=== PATIENT | male | born 1955 | race Caucasian/White ===

== ENCOUNTER 2016-08-04 13:01 | Observation (INO) ==
[2016-08-04 13:23] LABS: Bilirubin,Urine Small (Negative); Blood,Urine Negative (Negative); Clarity,Urine Cloudy (Clear); Color,Urine Dark Yellow (Yellow); Glucose,Urine (UA) Normal (Normal); Ketones,Urine Trace mg/dL (Negative); Leukocyte Esterase,Urine Moderate (Negative); Nitrite,Urine Positive (Negative); PH,Urine 6.5 pH Units (5.0-8.0); Protein,Urine 30 mg/dL (Neg-Trace); Urobilinogen,Urine Normal (Normal)
[2016-08-04 13:24] LABS: Bacteria,Urine None Seen per hpf (None-Few); Hyaline Casts,Urine Moderate per lpf (None-Few); RBC,Urine 0-3 per hpf (0-3); Squamous Epithelial Cell,Urine Many per lpf (None-Few); WBC,Urine 15-30 per hpf (0-3)
[2016-08-04 13:43] LABS: Basophils % 0.3 %; Eosinophils # 0.1 K/mcL (0.0-0.6); Eosinophils % 0.8 %; Hematocrit 46.4 % (37.5-50.1); Hemoglobin 15.1 g/dL (12.9-16.9); Immature Granulocytes % 0.7 % (0-4); Lymphocytes % 27.6 %; Mean Corpuscular HGB Conc 32.5 g/dL (31.6-35.5); Mean Corpuscular Hemoglobin 29.5 pg (28.0-33.3); Mean Corpuscular Volume 90.8 fL (83.0-100.0); Mean Platelet Volume 10.7 fL (9.4-12.4); Monocytes # 0.8 K/mcL (0.0-1.3); Monocytes % 7.8 %; Neutrophils # 6.8 K/mcL (1.6-8.9); Platelet Count 202 K/mcL (140-400); Red Blood Count 5.11 M/mcL (4.19-5.50); Segmented Neutrophils % 62.8 %
[2016-08-04 14:02] LABS: Alanine Aminotransferase 16 Units/L (0-55); Albumin 3.6 g/dL (3.5-5.0); Albumin/Globulin Ratio 0.9 (1.1-2.2); Alkaline Phosphatase 47 Units/L (38-126); Amylase 37 Units/L (25-125); Aspartate Amino Transferase 19 Units/L (5-34); BUN/Creatinine Ratio 15 (6-26); Bilirubin,Direct 0.2 mg/dL (0.0-0.5); Bilirubin,Indirect 0.3 mg/dL (0.0-1.2); Bilirubin,Total 0.5 mg/dL (0.2-1.2); Blood Urea Nitrogen 15 mg/dL (8-26); Calcium 10.1 mg/dL (8.6-10.8); Carbon Dioxide 21 mEq/L (19-29); Chloride 99 mEq/L (98-109); Glucose 116 mg/dL (70-99); Lipase 26 Units/L (8-78); Osmolality,Calculated 282 (280-300); Potassium 4.3 mEq/L (3.5-4.5); Sodium 135 mEq/L (136-145); Total Protein 7.6 g/dL (6.0-8.3); eGFR For African Americans > 60 (> 60); eGFR For Non-African Americans > 60 (> 60)
[2016-08-04] MEDS ORDERED: Ondansetron 4 MG/2 ML VIAL IV ONE (14:16)
[2016-08-04] MEDS ORDERED: Ketorolac 30 MG/ML VIAL IV ONE (14:16)
[2016-08-04] MEDS ORDERED: 0.9 % Sodium Chloride 1,000 ML IVC ONE (14:18)
--- NOTE | 2016-08-04 14:42 | Emergency Department Note ---
Disposition Clinical Impression: Pyelonephritis Abdominal pain Qualifiers: Abdominal location: upper abdomen, unspecified Qualified Code(s): R10.10 - Upper abdominal pain, unspecified UTI (urinary tract infection) Qualifiers: Urinary tract infection type: site unspecified Hematuria presence: without hematuria Qualified Code(s): N39.0 - Urinary tract infection, site not specified Disposition: Admitted As Inpatient Condition: Good Time of Disposition: 15:35 Abdominal Pain HPI - General Chief Complaint: ED Abdominal Pain Stated Complaint: Multiple complaints Time Seen by Provider: 08/04/16 14:01 Source: patient Mode of arrival: ambulatory Limitations: no limitations Nursing Notes Reviewed: Yes Vital Signs Reviewed: Yes - History of Present Illness HPI Narrative: Patient presents emergency room for evaluation of bilateral back pain and feeling generally ill. He is called today with positive culture results from an ER visit 3 days ago. The antibiotic he was on was resistant to the urinary bacteria. Patient has not been doing any better since going home. Denies chest pain shortness of breath fevers or chills but has been uncomfortable and unable to sleep over the last 24-48 hours Onset (ago): day(s) (5 days) Consistency: constant, Worsening Location: L flank, R flank Pain Severity: moderate Pain Scale: 10 Quality: aching Radiation: bilateral flank Migration to: no migration Improves with: nothing Worsens with: movement Associated symptoms: Reports: denies other symptoms Treatments prior to arrival: none - Related Data Home Medications Medication Instructions Recorded Confirmed Albuterol Sulfate [Albuterol 2 puff IH Q4H PRN 08/04/16 08/04/16 Inhaler] Baclofen [Lioresal] 10 mg PO BID 08/04/16 08/04/16 Docusate Sodium [Stool Softener] 100 mg PO BID PRN 08/04/16 08/04/16 FLUoxetine HCl [Prozac] 20 mg PO DAILY 08/04/16 08/04/16 Fenofibrate Nanocrystallized 48 mg PO DAILY 08/04/16 08/04/16 [Tricor] Furosemide [Lasix] 80 mg PO TID 08/04/16 08/04/16 Gabapentin [Neurontin] 600 mg PO TID PRN 08/04/16 08/04/16 LORazepam [Ativan] 0.5 mg PO DAILY PRN 08/04/16 08/04/16 Levothyroxine [Synthroid] 250 mcg PO QAM 08/04/16 08/04/16 Meloxicam [Mobic] 15 mg PO DAILY 08/04/16 08/04/16 Metformin HCl [Glucophage] 1,000 mg PO BID 08/04/16 08/04/16 Nitroglycerin [Nitrostat] 0.4 mg SL Q5M PRN 08/04/16 08/04/16 Omeprazole [PriLOSEC] 20 mg PO BIDAC 08/04/16 08/04/16 Oxycodone HCl/Acetaminophen 1 each PO Q6H PRN 08/04/16 08/04/16 [Percocet 7.5-325 mg Tablet] Pentoxifylline [TRENtal] 400 mg PO BID 08/04/16 08/04/16 Potassium Chloride [K-Tab ER] 20 meq PO DAILY 08/04/16 08/04/16 Pravastatin Sodium [Pravachol] 40 mg PO HS 08/04/16 08/04/16 Spironolactone [Aldactone] 50 mg PO BID 08/04/16 08/04/16 Warfarin [Coumadin] 10 mg PO 1800 08/04/16 08/04/16 Previous Rx's Medication Instructions Recorded Cephalexin [Keflex] 500 mg PO BID #14 capsule 08/07/16 Acetaminophen [Tylenol] 650 mg PO Q6HR #40 tablet 08/14/16 Ondansetron ODT [Zofran ODT] 4 mg SL Q6HR #10 tab.rapdis 08/14/16 Allergies Allergy/AdvReac Type Severity Reaction Status Date / Time Amoxicillin [From Augmentin] Allergy Palpitation Verified 08/04/16 13:05 s clavulanic acid Allergy Palpitation Verified 08/04/16 13:05 [From Augmentin] s meperidine [From Demerol] Allergy Palpitation Verified 08/04/16 13:05 s sulfamethoxazole Allergy Rash Verified 08/04/16 13:05 [From Bactrim] trimethoprim [From Bactrim] Allergy Rash Verified 08/04/16 13:05 All systems ED: reviewed and negative except as stated. Cardiovascular: Denies: chest pain, palpitations, dyspnea on exertion Respiratory: Denies: cough, dyspnea, wheezes Gastrointestinal: Reports: abdominal pain. Denies: nausea, vomiting, diarrhea Genitourinary: Reports: urgency, dysuria Musculoskeletal: Reports: back pain. Denies: neck pain Abdominal Pain PMH - Past Medical History Medical history: Reports: asthma, atrial fibrillation, CHF, COPD, diabetes, myocardial infarction, peripheral artery disease, thyroid disease, other Male Surgical History: Reports: orthopedic, other Psychiatric history: Reports: no psych history - Social History Smoking status: Current every day smoker Alcohol use: Reports: rarely Drug use: Reports: none Physical Exam - General General appearance: alert, in no apparent distress - Respiratory Respiratory exam: Present: normal lung sounds bilaterally, accessory muscle use. Absent: respiratory distress, wheezes, stridor - Cardiovascular Cardiovascular exam: Present: regular rate, normal rhythm, normal heart sounds - Abdominal Exam Abdominal exam: Present: soft, tenderness (Bilateral lower abdominal tenderness radiating around in the bilateral CVA region. No peritoneal like symptoms), normal bowel sounds. Absent: Non-Tender, distention, guarding, rebound, rigidity, Patel's sign, Rovsing's sign, tenderness at McBurney's Point - Extremities Exam Extremities exam: Present: normal inspection, full ROM - Back Exam Back exam: Present: normal inspection, full ROM, CVA tenderness (R), CVA tenderness (L). Absent: tenderness - Neurological Exam Neurological exam: Present: alert, oriented X3, CN II-XII intact - Psychiatric Psychiatric exam: Present: normal affect, normal mood - Skin Skin exam: Present: warm, dry, intact, normal color Course Course Narrative: Patient seen and examined the time of arrival. See history of present illness. 61-year-old male presents to the emergency room after being contacted about a positive urine culture. He is on an antibiotic that was not treating the urinary tract infection that he had. Patient also is describing progression of his generalized malaise and weakness. He has multiple vague complaints including feeling like short of breath feeling weak difficulty with ambulation stomach discomfort and bilateral back pain. All these been present for several days. They just appear to be weak at this time. Patient has not been able to eat or drink as much over the last 24 hours. He has only taken 3 doses of his antibiotic. Again the cultures reviewed by myself urine cultures positive for Escherichia coli resistant to ciprofloxacin and he was discharged home on. Vital signs are stable on presentation except for mild tachypnea. Pulse ox was normal. Physical exam shows a morbidly obese gentleman with significant truncal obesity. Lungs are clear but he does have accessory muscle use and diminished aeration secondary to body habitus. Patient has failed outpatient treatment of urinary tract infection. He was on ciprofloxacin at home it shows resistance. Patient is concerning for progression of pyelonephritis at this time. CT the abdomen ordered to address any underlying pathology including renal calculi. IV antibiotics including Rocephin given at this time. Pain medication nausea medication fluids ordered. 1 L given at this point. Intermittent aliquots were given after that secondary to history of CHF and dependent edema in his lower extremities. Patient is concerning for decompensation secondary to poor medical condition including significant truncal obesity. Patient stable at this time in about a regimen ordered pain control at this time patient will be admitted to the hospital for definitive management - Reevaluation(s) Reevaluation #1: CT of the abdomen is negative for acute pathology. No signs of acute renal calculi or obstruction. Patient has concern for pyelonephritis based on symptoms history presentation and failed outpatient management of urinary tract infection. Fluids provided. Pain medication first dose of IV Rocephin. Patient will be admitted for evaluation and definitive management. Patient is unable to tolerate by mouth food or fluids secondary to feeling ill and is unable to go home in this condition. Hospitals page at this time for admission process to be completed. Otherwise evaluation laboratory workup are unremarkable at this point. Time: 15:49 Reevaluation #2: Patient discussed with the hospitalist Dr. mooney . Reviewed the patient's presentation symptoms medical history. Discussed the second evaluation for urinary tract infection and generalized weakness at this point. Admission process to be completed for UTI possible pyelonephritis and weakness symptoms. No other recommendations from them at this time. Patient stable. We will continue to monitor in emergency room at admission process is completed. Patient family formula called with this plan. Time: 17:00 Vital Signs Temperature 97.4 F L 08/04/16 13:03 Pulse Rate 89 08/04/16 13:03 Respiratory Rate 22 08/04/16 13:03 Blood Pressure 138/94 08/04/16 13:03 O2 Sat by Pulse Oximetry 99 08/04/16 13:03 Temperature 98.0 F 08/07/16 10:53 Pulse Rate 72 08/07/16 10:53 Respiratory Rate 17 08/07/16 10:53 Blood Pressure 120/78 08/07/16 10:53 O2 Sat by Pulse Oximetry 96 08/07/16 10:53 Oxygen Delivery Oxygen Delivery Room Air Abdominal Pain - MDM Narrative Medical decision making narrative: Abdominal pain, urinary tract infection, pyelonephritis - Medical Records Medical records reviewed: Yes I reviewed the patient's medical records. - Lab Data Lab results reviewed: Yes I reviewed the patient's lab results. Result diagrams: 08/07/16 05:11 08/07/16 05:11 Lab Results 08/04/16 08/04/16 08/04/16 Range/Units 13:15 13:20 13:20 WBC 10.8 (4.3-11.1) K/mcL RBC 5.11 (4.19-5.50) M/mcL Hgb 15.1 (12.9-16.9) g/dL Hct 46.4 (37.5-50.1) % MCV 90.8 (83.0-100.0) fL MCH 29.5 (28.0-33.3) pg MCHC 32.5 (31.6-35.5) g/dL RDW 15.0 H (11.5-14.5) % Plt Count 202 (140-400) K/mcL MPV 10.7 (9.4-12.4) fL Immature Gran % 0.7 (0-4) % Seg Neutrophils % 62.8 % Lymphocytes % 27.6 % Monocytes % 7.8 % Eosinophils % 0.8 % Basophils % 0.3 % Neutrophils # 6.8 (1.6-8.9) K/mcL Lymphocytes # 3.0 (0.6-4.6) K/mcL Monocytes # 0.8 (0.0-1.3) K/mcL Eosinophils # 0.1 (0.0-0.6) K/mcL Basophils # 0.0 (0.0-0.2) K/mcL Sodium 135 L (136-145) mEq/L Potassium 4.3 (3.5-4.5) mEq/L Chloride 99 (98-109) mEq/L Carbon Dioxide 21 (19-29) mEq/L BUN 15 (8-26) mg/dL Creatinine 1.00 (0.72-1.25) mg/dL Est GFR ( Amer) > 60 (> 60) Est GFR (Non-Af Amer) > 60 (> 60) BUN/Creatinine Ratio 15 (6-26) Glucose 116 H (70-99) mg/dL Est Mean Plasma Glucose mg/dl Hemoglobin A1c ( - 5.6) % Calculated Osmolality 282 (280-300) Calcium 10.1 (8.6-10.8) mg/dL Total Bilirubin 0.5 (0.2-1.2) mg/dL Direct Bilirubin 0.2 (0.0-0.5) mg/dL Indirect Bilirubin 0.3 (0.0-1.2) mg/dL AST 19 (5-34) Units/L ALT 16 (0-55) Units/L Alkaline Phosphatase 47 (38-126) Units/L Troponin I (0-0.03) ng/mL Serum Total Protein 7.6 (6.0-8.3) g/dL Albumin 3.6 (3.5-5.0) g/dL Globulin 4.0 H (2.4-3.5) g/dL Albumin/Globulin Ratio 0.9 L (1.1-2.2) Amylase 37 (25-125) Units/L Lipase 26 (8-78) Units/L Urine Color Dark Yellow (Yellow) Urine Clarity Cloudy A (Clear) Urine pH 6.5 (5.0-8.0) pH Units Ur Specific [place] 1.030 H (1.010-1.025) Urine Protein 30 H (Neg-Trace) mg/dL Urine Glucose (UA) Normal (Normal) mg/dL Urine Ketones Trace H (Negative) mg/dL Urine Blood Negative (Negative) Urine Nitrite Positive A (Negative) Urine Bilirubin Small H (Negative) Urine Urobilinogen Normal (Normal) mg/dL Ur Leukocyte Esterase Moderate H (Negative) Urine Microscopic RBC 0-3 (0-3) per hpf Urine Microscopic WBC 15-30 H (0-3) per hpf Ur Squamous Epith Cells Many H (None-Few) per lpf Urine Bacteria None Seen (None-Few) per hpf Hyaline Casts Moderate H (None-Few) per lpf Ur Culture Indicated? YES A (NO) 08/04/16 08/04/16 Range/Units 13:20 13:33 WBC (4.3-11.1) K/mcL RBC (4.19-5.50) M/mcL Hgb (12.9-16.9) g/dL Hct (37.5-50.1) % MCV (83.0-100.0) fL MCH (28.0-33.3) pg MCHC (31.6-35.5) g/dL RDW (11.5-14.5) % Plt Count (140-400) K/mcL MPV (9.4-12.4) fL Immature Gran % (0-4) % Seg Neutrophils % % Lymphocytes % % Monocytes % % Eosinophils % % Basophils % % Neutrophils # (1.6-8.9) K/mcL Lymphocytes # (0.6-4.6) K/mcL Monocytes # (0.0-1.3) K/mcL Eosinophils # (0.0-0.6) K/mcL Basophils # (0.0-0.2) K/mcL Sodium (136-145) mEq/L Potassium (3.5-4.5) mEq/L Chloride (98-109) mEq/L Carbon Dioxide (19-29) mEq/L BUN (8-26) mg/dL Creatinine (0.72-1.25) mg/dL Est GFR ( Amer) (> 60) Est GFR (Non-Af Amer) (> 60) BUN/Creatinine Ratio (6-26) Glucose (70-99) mg/dL Est Mean Plasma Glucose 117 mg/dl Hemoglobin A1c 5.7 H ( - 5.6) % Calculated Osmolality (280-300) Calcium (8.6-10.8) mg/dL Total Bilirubin (0.2-1.2) mg/dL Direct Bilirubin (0.0-0.5) mg/dL Indirect Bilirubin (0.0-1.2) mg/dL AST (5-34) Units/L ALT (0-55) Units/L Alkaline Phosphatase (38-126) Units/L Troponin I 0.01 (0-0.03) ng/mL Serum Total Protein (6.0-8.3) g/dL Albumin (3.5-5.0) g/dL Globulin (2.4-3.5) g/dL Albumin/Globulin Ratio (1.1-2.2) Amylase (25-125) Units/L Lipase (8-78) Units/L Urine Color (Yellow) Urine Clarity (Clear) Urine pH (5.0-8.0) pH Units Ur Specific [place] (1.010-1.025) Urine Protein (Neg-Trace) mg/dL Urine Glucose (UA) (Normal) mg/dL Urine Ketones (Negative) mg/dL Urine Blood (Negative) Urine Nitrite (Negative) Urine Bilirubin (Negative) Urine Urobilinogen (Normal) mg/dL Ur Leukocyte Esterase (Negative) Urine Microscopic RBC (0-3) per hpf Urine Microscopic WBC (0-3) per hpf Ur Squamous Epith Cells (None-Few) per lpf Urine Bacteria (None-Few) per hpf Hyaline Casts (None-Few) per lpf Ur Culture Indicated? (NO) - Radiology Data Radiology results reviewed: Yes I reviewed the patient's radiology results. CT of the abdomen is negative for acute intra-abdominal pathology no signs of renal calculi or infectious presentation - EKG Data EKG attestation: Yes I reviewed and interpreted this EKG. EKG shows normal: sinus rhythm, axis, intervals, QRS complexes, ST-T waves Rate: normal Rhythm: NSR [place]/QRS: normal Interpretation: normal EKG Attestation Statement - Attestation Attestation: I examined this patient and my medical decision-making was reviewed with the AUDIT REVIEWER/PA/Advanced Practice Nurse/Resident Physician. I agree with the documented findings, disposition and treatment plan as described except to the extent set forth below. Patient emergency department with a chief complaint of not feeling well. The patient was seen a couple days ago for the same. He has a positive urine culture that was resistant to Cipro that he was prescribed. Feels warm but has not checked his temperature. On exam he is obese. He is in no distress. His abdomen soft. Nontoxic and afebrile. Plan. As bilateral. CT pending at this time. Starting Rocephin which was sensitive to. I was not involved in the care of this patient. I was not working at this facility on the date of his emergency care Tony Mckenzie MD
[2016-08-04] MEDS ORDERED: *HR* HYDROmorphone (PF) 1 MG/ML SYRINGE IVP ONE ×2 (15:33→17:03)
[2016-08-04] MEDS ORDERED: Naloxone 0.4 MG/ML INJ IVP PRN (19:05)
--- NOTE | 2016-08-04 19:14 | Internal Med History&Physical ---
<Dana Bonilla M - Last Filed: 08/04/16 20:23> Date of Encounter: 08/04/16 Time of Encounter: 19:12 Assessment and Plan (1) Pyelonephritis Current visit: Yes Status: Acute Patient diagnosed with UTI on 08/02 and sent home with Cipro. Today's UA consistent with UTI. Urine culture from 08/02 grew e.coli resistent to cipro and patient now with flank pain and CVA tenderness consistent with pyelonephritis. CT of abdomen and pelvis showed no acute abnormality. Ceftriaxone IVPB daily 1L IV fluids given (2) UTI (urinary tract infection) Current visit: Yes Status: Acute Patient diagnosed with UTI on 08/02 and sent home with Cipro. Today's UA consistent with UTI. Urine culture from 08/02 grew e.coli resistent to cipro and patient now with flank pain and CVA tenderness consistent with pyelonephritis. Ceftriaxone IVPB daily 1L IV fluids given Qualifiers: Urinary tract infection type: site unspecified Hematuria presence: without hematuria Qualified Code(s): N39.0 - Urinary tract infection, site not specified (3) CHF (congestive heart failure) Current visit: Yes Status: Chronic Echo 07/24/16 showed LVEF of 60% and mild diastolic dysfunction. Patient appears euvolemic on exam. CXR showed no acute cardiopulmonary disease. Continue home dose of lasix. Qualifiers: Congestive heart failure type: diastolic Congestive heart failure chronicity: chronic Qualified Code(s): I50.32 - Chronic diastolic (congestive ) heart failure (4) Afib Current visit: Yes Status: Acute Today's EKG demonstrated NSR. Regular rate and rhythm on exam. Continue home dose of Coumadin. Will check PT/INR. Qualifiers: Atrial fibrillation type: paroxysmal Qualified Code(s): I48.0 - Paroxysmal atrial fibrillation (5) COPD (chronic obstructive pulmonary disease) Current visit: Yes Status: Acute Patient requires 2-3L of oxygen by NC at home. Continue home medications. Titrate oxygen to maintain O2 saturation > 90%. Qualifiers: COPD type: unspecified COPD Qualified Code(s): J44.9 - Chronic obstructive pulmonary disease, unspecified (6) DVT prophylaxis Current visit: Yes Status: Acute Ambulate with assistance anti-embolic stockings Patient on coumadin, additional pharmacologic prophylaxis is not indicated. Internal Medicine - H&P: HPI Chief complaint: flank pain, UTI Admitted From: Emergency Dept Plans for Post Hospital Care: Home History of present illness: Mr. Davila is a 61 year old male with hypertension, hyperlipidemia, type 2 diabetes, COPD, CHF, atrial fibrillation on Coumadin, presents to the emergency department today with dysuria, flank pain, body aches, nausea and abdominal pain. He presented to the ED a few days ago and was diagnosed with a UTI, sent home on cipro, but symptoms continued and worsened. His culture returned bacterial resistant to cipro and he was called and instructed to return to the ED. He reports decreased appetite, weakness and shortness of breath as well. Evaluation in the emergency department included an EKG was showed normal sinus rhythm, troponin which was negative at 0.01. White blood cell count was normal at 10.8. UA was significant for UTI. On exam, patient is morbidly obese, alert and oriented in no acute distress. Lungs are clear bilaterally to auscultation, heart has regular rate and rhythm. Patient does have bilateral CVA tenderness. Past Med Surg Social Fam HX - Past Medical History Medical history: asthma, atrial fibrillation, CHF, COPD, diabetes, myocardial infarction, peripheral artery disease, thyroid disease, other Psychiatric history: no psych history - Past Surgical History Surgical History: angioplasty/stent, orthopedic, other - Social History Smoking Status: Current every day smoker (90 pack year history) Packs per day: 1/2 Smokeless Tobacco Status: No Alcohol use: rarely Drug use: none - Family History Mother Living Status: Age at : 70 Cause of : liver disease Father Living Status: Age at : 75 Cause of : pancreatic cancer Hx Family Cancer: Yes Internal Medicine - H&P: Meds Albuterol Sulfate [Albuterol Inhaler] 2 puff IH Q4H PRN 08/04/16 [History] Baclofen [Lioresal] 10 mg PO BID 08/04/16 [History] Docusate Sodium [Stool Softener] 100 mg PO BID PRN 08/04/16 [History] FLUoxetine HCl [PROzac] 20 mg PO DAILY 08/04/16 [History] Fenofibrate Nanocrystallized [Tricor] 48 mg PO DAILY 08/04/16 [History] Furosemide [Lasix] 80 mg PO TID 08/04/16 [History] Gabapentin [Neurontin] 600 mg PO TID PRN 08/04/16 [History] LORazepam [Ativan] 0.5 mg PO DAILY PRN 08/04/16 [History] Levothyroxine [Synthroid] 250 mcg PO QAM 08/04/16 [History] Meloxicam [Mobic] 15 mg PO DAILY 08/04/16 [History] Metformin HCl [Glucophage] 1,000 mg PO BID 08/04/16 [History] Nitroglycerin [Nitrostat] 0.4 mg SL Q5M PRN 08/04/16 [History] Omeprazole [PriLOSEC] 20 mg PO BIDAC 08/04/16 [History] Oxycodone HCl/Acetaminophen [Percocet 7.5-325 mg Tablet] 1 each PO Q6H PRN 08/04 [History] Pentoxifylline [TRENtal] 400 mg PO BID 08/04/16 [History] Potassium Chloride [K-Tab ER] 20 meq PO DAILY 08/04/16 [History] Pravastatin Sodium [Pravachol] 40 mg PO HS 08/04/16 [History] Spironolactone [Aldactone] 50 mg PO BID 08/04/16 [History] Warfarin [Coumadin] 10 mg PO 1800 08/04/16 [History] Allergies Amoxicillin [From Augmentin] Allergy (Verified 08/04/16 13:05) Palpitations clavulanic acid [From Augmentin] Allergy (Verified 08/04/16 13:05) Palpitations meperidine [From Demerol] Allergy (Verified 08/04/16 13:05) Palpitations sulfamethoxazole [From Bactrim] Allergy (Verified 08/04/16 13:05) Rash trimethoprim [From Bactrim] Allergy (Verified 08/04/16 13:05) Rash All Systems PM: A 10-system review of systems was performed and is negative for pertinent findings except as documented above in the HPI. - Constitutional Constitutional: chills, malaise, no fever(s), no night sweats - EENT Eyes: no change in vision, no discharge, no pain, no photophobia Ears: no ear discharge, no ear pain, no tinnitus Nose, mouth and throat: no dysphagia, no nasal discharge, no neck pain, no sore throat - Cardiovascular Cardiovascular ROS IM: no chest pain, no diaphoresis, no dyspnea, no lightheadedness, no palpitations, no syncope - Respiratory Respiratory: cough (chronic dry), dyspnea, no wheezing, no excessive phlegm production - Gastrointestinal Gastrointestinal: abdominal pain, nausea, no diarrhea, no hematemesis, no hematochezia, no melena, no vomiting - Genitourinary Genitourinary ROS male: dysuria, flank pain - Musculoskeletal Musculoskeletal ROS IM: no numbness, no tingling - Integumentary Integumentary IM: no rash, no unusual bruising - Neurological Neurological ROS: no confusion, no convulsions, no focal weakness, no numbness, no tingling, no tremor(s) - Hematologic/Lymphatic Hematologic/Lymphatic: no easy bruising - Constitutional Vitals: Temp Pulse Resp BP Pulse Ox 97.7 F 78 16 135/96 94 08/04/16 18:43 08/04/16 18:43 08/04/16 18:43 08/04/16 18:43 08/04/16 18:43 General appearance: Present: A&O X 3, morbidly obese, pleasant, no acute distress - Head Head exam: Present: atraumatic, normocephalic - Eye Eye exam: Present: PERRL, conjuntiva pink, sclera anicteric Pupils: Present: PERRL - Neck Neck exam general surgery: Present: supple, trachea midline. Absent: lymphadenopathy - Respiratory Respiratory exam: Present: CTAB. Absent: accessory muscle use, rales, rhonchi, wheezes - Cardiovascular Cardiovascular exam: Present: RRR, +S1, +S2. Absent: diastolic murmur, gallop, rubs, systolic murmur - GI/Abdominal GI/Abdominal exam: Present: normal bowel sounds, soft, tenderness (mild, diffuse ), no peritoneal signs. Absent: distended - Extremities Exam Extremities exam: Present: pedal edema (BLE edema), warm, radial pulses palpable and symetrical. Absent: calf tenderness, cyanotic - Back Exam Back exam: Present: CVA tenderness (L), CVA tenderness (R) - Neurological Exam Neurological exam: Present: CN II-XII intact, oriented X3, no focal deficits. Absent: facial droop, speech deficit - Skin Skin exam: Present: dry, intact Internal Med - H&P Results - Labs CBC & Chem 7: 08/04/16 13:20 08/04/16 13:20 Labs: All Lab Results (24 Hours) 08/04/16 08/04/16 08/04/16 Range/Units 13:15 13:20 13:20 WBC 10.8 (4.3-11.1) K/mcL RBC 5.11 (4.19-5.50) M/mcL Hgb 15.1 (12.9-16.9) g/dL Hct 46.4 (37.5-50.1) % MCV 90.8 (83.0-100.0) fL MCH 29.5 (28.0-33.3) pg MCHC 32.5 (31.6-35.5) g/dL RDW 15.0 H (11.5-14.5) % Plt Count 202 (140-400) K/mcL MPV 10.7 (9.4-12.4) fL Immature Gran % 0.7 (0-4) % Seg Neutrophils % 62.8 % Lymphocytes % 27.6 % Monocytes % 7.8 % Eosinophils % 0.8 % Basophils % 0.3 % Neutrophils # 6.8 (1.6-8.9) K/mcL Lymphocytes # 3.0 (0.6-4.6) K/mcL Monocytes # 0.8 (0.0-1.3) K/mcL Eosinophils # 0.1 (0.0-0.6) K/mcL Basophils # 0.0 (0.0-0.2) K/mcL Sodium 135 L (136-145) mEq/L Potassium 4.3 (3.5-4.5) mEq/L Chloride 99 (98-109) mEq/L Carbon Dioxide 21 (19-29) mEq/L BUN 15 (8-26) mg/dL Creatinine 1.00 (0.72-1.25) mg/dL Est GFR ( Amer) > 60 (> 60) Est GFR (Non-Af Amer) > 60 (> 60) BUN/Creatinine Ratio 15 (6-26) Glucose 116 H (70-99) mg/dL POC Glucose (58-89) Calculated Osmolality 282 (280-300) Calcium 10.1 (8.6-10.8) mg/dL Total Bilirubin 0.5 (0.2-1.2) mg/dL Direct Bilirubin 0.2 (0.0-0.5) mg/dL Indirect Bilirubin 0.3 (0.0-1.2) mg/dL AST 19 (5-34) Units/L ALT 16 (0-55) Units/L Alkaline Phosphatase 47 (38-126) Units/L Troponin I (0-0.03) ng/mL Serum Total Protein 7.6 (6.0-8.3) g/dL Albumin 3.6 (3.5-5.0) g/dL Globulin 4.0 H (2.4-3.5) g/dL Albumin/Globulin Ratio 0.9 L (1.1-2.2) Amylase 37 (25-125) Units/L Lipase 26 (8-78) Units/L Urine Color Dark Yellow (Yellow) Urine Clarity Cloudy A (Clear) Urine pH 6.5 (5.0-8.0) pH Units Ur Specific [place] 1.030 H (1.010-1.025) Urine Protein 30 H (Neg-Trace) mg/dL Urine Glucose (UA) Normal (Normal) mg/dL Urine Ketones Trace H (Negative) mg/dL Urine Blood Negative (Negative) Urine Nitrite Positive A (Negative) Urine Bilirubin Small H (Negative) Urine Urobilinogen Normal (Normal) mg/dL Ur Leukocyte Esterase Moderate H (Negative) Urine Microscopic RBC 0-3 (0-3) per hpf Urine Microscopic WBC 15-30 H (0-3) per hpf Ur Squamous Epith Cells Many H (None-Few) per lpf Urine Bacteria None Seen (None-Few) per hpf Hyaline Casts Moderate H (None-Few) per lpf Ur Culture Indicated? YES A (NO) 08/04/16 08/04/16 Range/Units 13:20 18:46 WBC (4.3-11.1) K/mcL RBC (4.19-5.50) M/mcL Hgb (12.9-16.9) g/dL Hct (37.5-50.1) % MCV (83.0-100.0) fL MCH (28.0-33.3) pg MCHC (31.6-35.5) g/dL RDW (11.5-14.5) % Plt Count (140-400) K/mcL MPV (9.4-12.4) fL Immature Gran % (0-4) % Seg Neutrophils % % Lymphocytes % % Monocytes % % Eosinophils % % Basophils % % Neutrophils # (1.6-8.9) K/mcL Lymphocytes # (0.6-4.6) K/mcL Monocytes # (0.0-1.3) K/mcL Eosinophils # (0.0-0.6) K/mcL Basophils # (0.0-0.2) K/mcL Sodium (136-145) mEq/L Potassium (3.5-4.5) mEq/L Chloride (98-109) mEq/L Carbon Dioxide (19-29) mEq/L BUN (8-26) mg/dL Creatinine (0.72-1.25) mg/dL Est GFR ( Amer) (> 60) Est GFR (Non-Af Amer) (> 60) BUN/Creatinine Ratio (6-26) Glucose (70-99) mg/dL POC Glucose 125 H (58-89) Calculated Osmolality (280-300) Calcium (8.6-10.8) mg/dL Total Bilirubin (0.2-1.2) mg/dL Direct Bilirubin (0.0-0.5) mg/dL Indirect Bilirubin (0.0-1.2) mg/dL AST (5-34) Units/L ALT (0-55) Units/L Alkaline Phosphatase (38-126) Units/L Troponin I 0.01 (0-0.03) ng/mL Serum Total Protein (6.0-8.3) g/dL Albumin (3.5-5.0) g/dL Globulin (2.4-3.5) g/dL Albumin/Globulin Ratio (1.1-2.2) Amylase (25-125) Units/L Lipase (8-78) Units/L Urine Color (Yellow) Urine Clarity (Clear) Urine pH (5.0-8.0) pH Units Ur Specific [place] (1.010-1.025) Urine Protein (Neg-Trace) mg/dL Urine Glucose (UA) (Normal) mg/dL Urine Ketones (Negative) mg/dL Urine Blood (Negative) Urine Nitrite (Negative) Urine Bilirubin (Negative) Urine Urobilinogen (Normal) mg/dL Ur Leukocyte Esterase (Negative) Urine Microscopic RBC (0-3) per hpf Urine Microscopic WBC (0-3) per hpf Ur Squamous Epith Cells (None-Few) per lpf Urine Bacteria (None-Few) per hpf Hyaline Casts (None-Few) per lpf Ur Culture Indicated? (NO) - Diagnostic Studies CT scan - abdomen Additional comments: Abdomen/Pelvis CT 08/04/16 14:16 IMPRESSION: No acute abnormality in the abdomen or pelvis. D/ / Ray Santiago MD / Ray Santiago MD Interpreting Provider: Ray Santiago MD Chest x-ray Additional comments: Chest X-Ray 08/04/16 14:16 IMPRESSION: No evidence of acute disease. D/ / Kevin Stewart MD / Kevin Stewart MD Interpreting Provider: Kevin Stewart MD <Cesar Vasquez T - Last Filed: 08/05/16 07:21> Date of Encounter: 08/05/16 Internal Medicine - H&P: HPI History of present illness: Mr. Davila is a 61 year old male All Systems PM: A 10-system review of systems was performed and is negative for pertinent findings except as documented above in the HPI. - Constitutional Vitals: Temp Pulse Resp BP Pulse Ox 97.6 F 69 19 154/92 97 08/05/16 03:33 08/05/16 03:33 08/05/16 03:33 08/05/16 03:33 08/05/16 03:33 Internal Med - H&P Results - Labs CBC & Chem 7: 08/05/16 03:58 08/05/16 03:58 Labs: Short CBC 08/05/16 Range/Units 03:58 WBC 10.5 (4.3-11.1) K/mcL Hgb 14.0 (12.9-16.9) g/dL Hct 44.2 (37.5-50.1) % Plt Count 196 (140-400) K/mcL Neutrophils # 6.1 (1.6-8.9) K/mcL [facility] 08/05/16 03:58 Sodium 137 Potassium 4.4 Chloride 98 Carbon Dioxide 25 BUN 18 Creatinine 1.07 Glucose 99 Calcium 9.5 - Attending Attestation I independently interviewed and examined this patient. EMR reviewed, plan of care discussed with MAGALIS Clark whose documentation reflects our plan of care.
[2016-08-04] MEDS ORDERED: Gabapentin 300 MG CAPSULE PO PRN (19:39)
[2016-08-04] MEDS ORDERED: Nitroglycerin 0.4 MG TAB.SUBL SL PRN (19:39)
[2016-08-04] MEDS ORDERED: *HR* Dextrose 50 % in Water (Syg) 50 ML SYRINGE IVP PRN (20:02)
[2016-08-04] MEDS ORDERED: Dextrose Gel 15 GM PO PRN ×2 (20:02)
[2016-08-04] MEDS ORDERED: D5% in Water 1,000 ML IVC PRN (20:02)
[2016-08-04 20:23] LABS: Hemoglobin A1C 5.7 %
[2016-08-04 20:45] LABS: INR 2.6; Prothrombin Time 28.8 Seconds (9.4-12.1)
[2016-08-04 20:47] LABS: Activated Partial Thrombo Time 44.3 Seconds (26.0-36.0)
[2016-08-04] MEDS: *HR* OxyCODONE/APAP 7.5/325 TABLET PO PRN (21:20)
[2016-08-04] MEDS: Furosemide 40 MG TABLET PO SCH (21:21)
[2016-08-04] MEDS: Baclofen 10 MG TABLET PO SCH (21:21)
[2016-08-04] MEDS: Insulin LISPRO 300 UNITS/3 ML VIAL SQ SCH (21:22)
[2016-08-04] MEDS: *HR* Morphine 2 MG/ML SYRINGE IVP PRN (22:24)
[2016-08-04] MEDS: Ondansetron 4 MG/2 ML VIAL IVP PRN (22:24)
[2016-08-04] MEDS: Artificial Tears SOLN 15 ML BOTTLE BOTH EYES SCH (22:25)
[2016-08-05 04:42] LABS: Basophils # 0.1 K/mcL (0.0-0.2); Basophils % 0.5 %; Eosinophils # 0.2 K/mcL (0.0-0.6); Eosinophils % 1.4 %; Hematocrit 44.2 % (37.5-50.1); Immature Granulocytes % 0.6 % (0-4); Lymphocytes # 3.1 K/mcL (0.6-4.6); Lymphocytes % 29.7 %; Mean Corpuscular HGB Conc 31.7 g/dL (31.6-35.5); Mean Corpuscular Hemoglobin 29.5 pg (28.0-33.3); Mean Corpuscular Volume 93.1 fL (83.0-100.0); Mean Platelet Volume 10.8 fL (9.4-12.4); Monocytes # 1.1 K/mcL (0.0-1.3); Monocytes % 10.1 %; Neutrophils # 6.1 K/mcL (1.6-8.9); Platelet Count 196 K/mcL (140-400); Red Blood Count 4.75 M/mcL (4.19-5.50); Red Cell Distribution Width 14.9 % (11.5-14.5); Segmented Neutrophils % 57.7 %
[2016-08-05 04:53] LABS: BUN/Creatinine Ratio 17 (6-26); Blood Urea Nitrogen 18 mg/dL (8-26); Calcium 9.5 mg/dL (8.6-10.8); Carbon Dioxide 25 mEq/L (19-29); Chloride 98 mEq/L (98-109); Glucose 99 mg/dL (70-99); Osmolality,Calculated 286 (280-300); Potassium 4.4 mEq/L (3.5-4.5); Sodium 137 mEq/L (136-145); eGFR For African Americans > 60 (> 60); eGFR For Non-African Americans > 60 (> 60)
[2016-08-05] MEDS: *HR* Morphine 2 MG/ML SYRINGE IVP PRN (05:28)
[2016-08-05] MEDS: Furosemide 40 MG TABLET PO SCH ×3 (08:00→17:13)
[2016-08-05] MEDS: Baclofen 10 MG TABLET PO SCH ×2 (08:01→21:03)
[2016-08-05] MEDS: Artificial Tears SOLN 15 ML BOTTLE BOTH EYES SCH ×4 (08:02→21:04)
[2016-08-05] MEDS: FLUoxetine 20 MG CAPSULE PO SCH (08:02)
[2016-08-05] MEDS: Insulin LISPRO 300 UNITS/3 ML VIAL SQ SCH ×4 (08:04→21:17)
[2016-08-05] MEDS: Fenofibrate 54 MG TABLET PO SCH (08:15)
[2016-08-05 12:53] LABS: INR 2.3; Prothrombin Time 25.8 Seconds (9.4-12.1)
--- NOTE | 2016-08-05 12:55 | Internal Med Progress Note ---
Date of Encounter: 08/05/16 Time of Encounter: 12:53 - Assessment and plan (1) Pyelonephritis Current Visit: Yes Status: Acute Assessment and plan: Patient diagnosed with UTI on 08/02 and sent home with Cipro. Today's UA consistent with UTI. Urine culture from 08/02 grew e.coli resistent to cipro and patient now with flank pain and CVA tenderness consistent with pyelonephritis. CT of abdomen and pelvis showed no acute abnormality. Ceftriaxone IVPB daily, continue (2) UTI (urinary tract infection) Current Visit: Yes Status: Acute Assessment and plan: As above Qualifiers: Urinary tract infection type: site unspecified Hematuria presence: without hematuria Qualified Code(s): N39.0 - Urinary tract infection, site not specified (3) CHF (congestive heart failure) Current Visit: Yes Status: Chronic Assessment and plan: Echo 07/24/16 showed LVEF of 60% and mild diastolic dysfunction. Patient appears euvolemic on exam. CXR showed no acute cardiopulmonary disease. Continue home dose of lasix. Qualifiers: Congestive heart failure type: diastolic Congestive heart failure chronicity: chronic Qualified Code(s): I50.32 - Chronic diastolic (congestive ) heart failure (4) Afib Current Visit: Yes Status: Chronic Assessment and plan: Chronic, paroxysmal rate is controlled Continue coumadin, monitor INR Qualifiers: Atrial fibrillation type: paroxysmal Qualified Code(s): I48.0 - Paroxysmal atrial fibrillation (5) DVT prophylaxis Current Visit: Yes Status: Chronic (6) COPD (chronic obstructive pulmonary disease) Current Visit: Yes Status: Chronic Assessment and plan: With chronic hypoxia on home O2, continue same Qualifiers: COPD type: unspecified COPD Qualified Code(s): J44.9 - Chronic obstructive pulmonary disease, unspecified (7) Morbid obesity with BMI of 60.0-69.9, adult Current Visit: Yes Status: Chronic - Subjective Interval history: Seen at bedside Still complaining of nausea and soreness of his flanks, R >L Patient has many multiple medical problems but states they are all stable He has remained afebrile - Constitutional Vitals: Temp Pulse Resp BP Pulse Ox 97.7 F 73 17 113/70 92 08/05/16 10:31 08/05/16 10:31 08/05/16 10:31 08/05/16 10:31 08/05/16 10:31 General appearance: Present: A&O X 3, morbidly obese, pleasant, no acute distress - Head Head exam: Present: atraumatic, normocephalic - Eye Eye exam: Present: PERRL, conjuntiva pink, sclera anicteric Pupils: Present: PERRL - Neck Neck exam general surgery: Present: supple, trachea midline. Absent: lymphadenopathy - Respiratory Respiratory exam: Present: CTAB. Absent: accessory muscle use, rales, rhonchi, wheezes - Cardiovascular Cardiovascular exam: Present: RRR, +S1, +S2. Absent: diastolic murmur, gallop, rubs, systolic murmur - GI/Abdominal GI/Abdominal exam: Present: normal bowel sounds, soft, no peritoneal signs. Absent: distended, tenderness - Extremities Exam Extremities exam: Present: pedal edema Additional comments: Chronic venous stasis changes and chronic edema - Back Exam Back exam: Present: CVA tenderness (L), CVA tenderness (R) - Neurological Exam Neurological exam: Present: alert, CN II-XII intact, oriented X3, no focal deficits. Absent: pronater drift, facial droop, speech deficit - Skin Skin exam: Present: dry Internal Medicine: Result - Labs CBC & Chem 7: 08/05/16 03:58 08/05/16 03:58 Labs: Short CBC 08/05/16 Range/Units 03:58 WBC 10.5 (4.3-11.1) K/mcL Hgb 14.0 (12.9-16.9) g/dL Hct 44.2 (37.5-50.1) % Plt Count 196 (140-400) K/mcL Neutrophils # 6.1 (1.6-8.9) K/mcL BMP 08/05/16 03:58 Sodium 137 Potassium 4.4 Chloride 98 Carbon Dioxide 25 BUN 18 Creatinine 1.07 Glucose 99 Calcium 9.5 - ABG Interpretation ABG results: PT/INR, D-dimer PT 28.8 Seconds (9.4-12.1) H 08/04/16 20:30 Consult Discharge Plan - Plan Referrals: Fartun Quinones, REPAIR MILLER [Primary Care Provider] - 08/13/16 10:00 am
[2016-08-05] MEDS: *HR* Warfarin 5 MG TABLET PO SCH (17:14)
--- NOTE | 2016-08-05 17:52 | Electrocardiograph Report ---
[address] [place] [address] Test Date: 2016-08-04 Pat Name: Clemente Davila Department: 105 Room: 3B Gender: M Compliance Investigator: JASON : 1955 Requested By: Win Warner Order Number: [id number] Reading MD: Elfego Laguerre Measurements Intervals [place] Rate: 78 P: 28 VT: 143 QRS: -29 QRSD: 90 T: 60 QT: 372 QTc: 405 Interpretive Statements SINUS RHYTHM BORDERLINE LEFT AXIS DEVIATION POSSIBLE RIGHT VENTRICULAR CONDUCTION DELAY Electronically Signed On 08-05-2016 17:51:18 EDT by Elfego Laguerre
[2016-08-05] MEDS: *HR* LORazepam 0.5 MG TABLET PO PRN (21:03)
[2016-08-06 03:41] LABS: INR 2.3; Prothrombin Time 25.5 Seconds (9.4-12.1)
[2016-08-06 03:44] LABS: Activated Partial Thrombo Time 40.8 Seconds (26.0-36.0)
[2016-08-06] MEDS: *HR* OxyCODONE/APAP 7.5/325 TABLET PO PRN ×2 (06:01→13:40)
[2016-08-06] MEDS: Insulin LISPRO 300 UNITS/3 ML VIAL SQ SCH ×4 (08:53→20:21)
[2016-08-06] MEDS: Furosemide 40 MG TABLET PO SCH ×3 (08:56→17:50)
[2016-08-06] MEDS: Baclofen 10 MG TABLET PO SCH ×2 (08:56→20:20)
[2016-08-06] MEDS: Fenofibrate 54 MG TABLET PO SCH (08:57)
[2016-08-06] MEDS: FLUoxetine 20 MG CAPSULE PO SCH (08:57)
[2016-08-06] MEDS: Artificial Tears SOLN 15 ML BOTTLE BOTH EYES SCH ×4 (09:00→20:20)
[2016-08-06] MEDS: *HR* LORazepam 0.5 MG TABLET PO PRN (09:16)
--- NOTE | 2016-08-06 10:28 | Internal Med Progress Note ---
Date of Encounter: 08/06/16 Time of Encounter: 10:00 - Assessment and plan (1) Abdominal pain Current Visit: Yes Status: Acute Assessment and plan: secondary to pyelonephritis. us abdomen adn CT abdomen/pelvis are unremarkable. Qualifiers: Abdominal location: upper abdomen, unspecified Qualified Code(s): R10.10 - Upper abdominal pain, unspecified (2) Pyelonephritis Current Visit: Yes Status: Acute Assessment and plan: Patient diagnosed with UTI on 08/02 and sent home with Cipro. Urine culture from 08/02 grew e.coli resistent to cipro and patient now with flank pain and CVA tenderness consistent with pyelonephritis. CT of abdomen and pelvis showed no acute abnormality. Right upper quadrant ultrasound was unremarkable. Patient with poor oral intake and still feeling nauseous. start IV Protonix. Continue IV Ceftriaxone. May consider discharge to home tomorrow if able to tolerate oral intake (3) Chronic respiratory failure with hypoxia Current Visit: Yes Status: Chronic Assessment and plan: Secondary to COPD, suspected OHS/BECK, and heart failure. CXR showed no acute process Continue oxygen supplementation. (4) Diastolic heart failure Current Visit: Yes Status: Chronic Assessment and plan: Continue home Lasix. Qualifiers: Heart failure chronicity: chronic Qualified Code(s): I50.32 - Chronic diastolic (congestive) heart failure (5) Afib Current Visit: Yes Status: Chronic Assessment and plan: Chronic, paroxysmal rate is controlled. INR is therapeutic. Continue coumadin, monitor INR Qualifiers: Atrial fibrillation type: paroxysmal Qualified Code(s): I48.0 - Paroxysmal atrial fibrillation (6) COPD (chronic obstructive pulmonary disease) Current Visit: Yes Status: Chronic Assessment and plan: With chronic hypoxia on home O2, continue home meds Qualifiers: COPD type: unspecified COPD Qualified Code(s): J44.9 - Chronic obstructive pulmonary disease, unspecified (7) Morbid obesity with BMI of 60.0-69.9, adult Current Visit: Yes Status: Chronic Assessment and plan: bmi 60 - Subjective Interval history: pt reports nausea, and RUQ abdominal pain. poor oral intake - Constitutional Vitals: Temp Pulse Resp BP Pulse Ox 98.0 F 78 17 121/78 95 08/06/16 07:44 08/06/16 07:44 08/06/16 07:44 08/06/16 07:44 08/06/16 07:44 General appearance: Present: cooperative, A&O X 3, morbidly obese, pleasant, no acute distress, answers questions appropriately - Eye Eye exam: Present: PERRL, sclera anicteric - Neck Neck exam general surgery: Present: supple, trachea midline. Absent: lymphadenopathy - Respiratory Respiratory exam: Present: rhonchi (at lung bases) - Cardiovascular Cardiovascular exam: Present: RRR - GI/Abdominal GI/Abdominal exam: Present: normal bowel sounds, soft. Absent: distended, tenderness - Extremities Exam Extremities exam: Present: pedal edema - Neurological Exam Neurological exam: Present: alert, oriented X3, no focal deficits, strengths equal and symetr throughout. Absent: facial droop, speech deficit - Skin Skin exam: Present: dry. Absent: rash Internal Medicine: Result - Labs CBC & Chem 7: 08/05/16 03:58 08/05/16 03:58 - ABG Interpretation ABG results: PT/INR, D-dimer PT 25.5 Seconds (9.4-12.1) H 08/06/16 03:24 Consult Discharge Plan - Plan Referrals: Fartun Quinones, [employer]BI[employer] DES[employer]ER [Primary Care Provider] - 08/13/16 10:00 am
[2016-08-06] MEDS: *HR* Warfarin 5 MG TABLET PO SCH (17:50)
[2016-08-07 05:31] LABS: Basophils # 0.1 K/mcL (0.0-0.2); Basophils % 0.5 %; Eosinophils # 0.2 K/mcL (0.0-0.6); Eosinophils % 1.5 %; Hematocrit 47.2 % (37.5-50.1); Immature Granulocytes % 0.6 % (0-4); Lymphocytes # 3.2 K/mcL (0.6-4.6); Lymphocytes % 30.9 %; Mean Corpuscular HGB Conc 31.8 g/dL (31.6-35.5); Mean Corpuscular Hemoglobin 28.5 pg (28.0-33.3); Mean Corpuscular Volume 89.7 fL (83.0-100.0); Mean Platelet Volume 10.4 fL (9.4-12.4); Monocytes # 1.2 K/mcL (0.0-1.3); Neutrophils # 5.8 K/mcL (1.6-8.9); Platelet Count 219 K/mcL (140-400); Red Blood Count 5.26 M/mcL (4.19-5.50); Red Cell Distribution Width 14.6 % (11.5-14.5); Segmented Neutrophils % 55.5 %
[2016-08-07 05:52] LABS: Alanine Aminotransferase 17 Units/L (0-55); Albumin 3.5 g/dL (3.5-5.0); Alkaline Phosphatase 40 Units/L (38-126); Aspartate Amino Transferase 17 Units/L (5-34); BUN/Creatinine Ratio 17 (6-26); Bilirubin,Direct 0.2 mg/dL (0.0-0.5); Bilirubin,Indirect 0.4 mg/dL (0.0-1.2); Bilirubin,Total 0.6 mg/dL (0.2-1.2); Blood Urea Nitrogen 19 mg/dL (8-26); Calcium 9.6 mg/dL (8.6-10.8); Carbon Dioxide 25 mEq/L (19-29); Chloride 98 mEq/L (98-109); Globulin 3.6 g/dL (2.4-3.5); Glucose 114 mg/dL (70-99); Osmolality,Calculated 281 (280-300); Potassium 3.9 mEq/L (3.5-4.5); Sodium 134 mEq/L (136-145); Total Protein 7.1 g/dL (6.0-8.3); eGFR For African Americans > 60 (> 60); eGFR For Non-African Americans > 60 (> 60)
[2016-08-07] MEDS ORDERED: Pantoprazole 40 MG VIAL IVP SCH (09:00)
[2016-08-07] MEDS: Artificial Tears SOLN 15 ML BOTTLE BOTH EYES SCH (09:49)
[2016-08-07] MEDS: Insulin LISPRO 300 UNITS/3 ML VIAL SQ SCH (09:49)
[2016-08-07] MEDS: FLUoxetine 20 MG CAPSULE PO SCH (09:56)
[2016-08-07] MEDS: Furosemide 40 MG TABLET PO SCH (09:56)
[2016-08-07] MEDS: Fenofibrate 54 MG TABLET PO SCH (09:56)
[2016-08-07] MEDS: *HR* LORazepam 0.5 MG TABLET PO PRN (09:56)
[2016-08-07] MEDS: Baclofen 10 MG TABLET PO SCH (09:56)
[2016-08-07] MEDS: Ondansetron 4 MG/2 ML VIAL IVP PRN (10:06)
[2016-08-07] MEDS: *HR* OxyCODONE/APAP 7.5/325 TABLET PO PRN (10:06)
[2016-08-07 10:53] VITALS: BP 120/78
--- NOTE | 2016-08-07 11:56 | Discharge Summary ---
Date of Encounter: 08/07/16 Time of Encounter: 11:54 - Discharge Diagnosis (1) Abdominal pain Priority: Primary Status: Acute Qualifiers: Abdominal location: upper abdomen, unspecified Qualified Code(s): R10.10 - Upper abdominal pain, unspecified (2) Pyelonephritis Priority: Primary Status: Acute (3) Chronic respiratory failure with hypoxia Priority: Secondary Status: Chronic (4) Diastolic heart failure Priority: Secondary Status: Chronic Qualifiers: Heart failure chronicity: chronic Qualified Code(s): I50.32 - Chronic diastolic (congestive) heart failure (5) Afib Priority: Secondary Status: Chronic Qualifiers: Atrial fibrillation type: paroxysmal Qualified Code(s): I48.0 - Paroxysmal atrial fibrillation (6) COPD (chronic obstructive pulmonary disease) Priority: Secondary Status: Chronic Qualifiers: COPD type: unspecified COPD Qualified Code(s): J44.9 - Chronic obstructive pulmonary disease, unspecified (7) Morbid obesity with BMI of 60.0-69.9, adult Priority: Secondary Status: Chronic - Discharge Medications Prescriptions: Cephalexin [Keflex] 500 mg PO BID #14 capsule Home Medications: Albuterol Sulfate [Albuterol Inhaler] 2 puff IH Q4H PRN 08/04/16 [History] Baclofen [Lioresal] 10 mg PO BID 08/04/16 [History] Docusate Sodium [Stool Softener] 100 mg PO BID PRN 08/04/16 [History] FLUoxetine HCl [Prozac] 20 mg PO DAILY 08/04/16 [History] Fenofibrate Nanocrystallized [Tricor] 48 mg PO DAILY 08/04/16 [History] Furosemide [Lasix] 80 mg PO TID 08/04/16 [History] Gabapentin [Neurontin] 600 mg PO TID PRN 08/04/16 [History] LORazepam [Ativan] 0.5 mg PO DAILY PRN 08/04/16 [History] Levothyroxine [Synthroid] 250 mcg PO QAM 08/04/16 [History] Meloxicam [Mobic] 15 mg PO DAILY 08/04/16 [History] Metformin HCl [Glucophage] 1,000 mg PO BID 08/04/16 [History] Nitroglycerin [Nitrostat] 0.4 mg SL Q5M PRN 08/04/16 [History] Omeprazole [PriLOSEC] 20 mg PO BIDAC 08/04/16 [History] Oxycodone HCl/Acetaminophen [Percocet 7.5-325 mg Tablet] 1 each PO Q6H PRN 08/04 [History] Pentoxifylline [TRENtal] 400 mg PO BID 08/04/16 [History] Potassium Chloride [K-Tab ER] 20 meq PO DAILY 08/04/16 [History] Pravastatin Sodium [Pravachol] 40 mg PO HS 08/04/16 [History] Spironolactone [Aldactone] 50 mg PO BID 08/04/16 [History] Warfarin [Coumadin] 10 mg PO 1800 08/04/16 [History] Cephalexin [Keflex] 500 mg PO BID #14 capsule 08/07/16 [Rx] Allergies/Adverse Reactions: Allergies Amoxicillin [From Augmentin] Allergy (Verified 08/04/16 13:05) Palpitations clavulanic acid [From Augmentin] Allergy (Verified 08/04/16 13:05) Palpitations meperidine [From Demerol] Allergy (Verified 08/04/16 13:05) Palpitations sulfamethoxazole [From Bactrim] Allergy (Verified 08/04/16 13:05) Rash trimethoprim [From Bactrim] Allergy (Verified 08/04/16 13:05) Rash Procedures/tests Complete & Pending: Procedures Performed prior 72 hours Category Date Time Status abdominal ultrasound - limited [US abdomen limited] [US Exams 08/06/16 15:00 Completed ] Routine Date of admission: 08/04/16 17:34 Primary care physician: Fartun Quinones CNP Consults: 08/04/16 18:32 Consult to Bark Peeler [CONS] Routine Reason for SW Consult: patient concerned with hospital bills - Patient Status Disposition: Home, Self-Care Condition: Good Functional capacity at discharge: independent ambulation Overall status at discharge: patient is progressing back to baseline - Discharge Instructions Instructions: Cephalexin (By mouth), Atrial Fibrillation (DC), Chronic Obstructive Pulmonary Disease (DC) Follow Up With: Fartun Quinones CNP [Primary Care Provider] - 08/13/16 10:00 am Additional Instructions: CHECK YOUR BLOOD PRESSURE TWICE DAILY (SAME TIME EVERY MORNING AND EVENING), MAKE A LOG AND BRING NUMBERS TO DOCTOR'S APPOINTMENT CHECK YOUR BLOOD SUGAR BEFORE MEALS AND AT BEDTIME, MAKE A LOG AND RING NUMBERS TO DOCTOR'S APPOINTMENT FOLLOW UP WITH YOUR PRIMARY CARE DOCTOR FOR WEIGHT LOSS PROGRAM. - Diet and Activity Activity: resume usual activities as tolerated, wear oxygen at all times Diet: diabetic diet, low fat, low cholesterol, low salt diet Interval History: Patient is eating well. No complaints. Hospital course: Mr. Davila is a 61 year old male with past medical history of diastolic heart failure, chronic respiratory failure on oxygen at home, COPD, atrial fibrillation and morbidly obese. He was admitted to our hospital after failing outpatient treatment for urinary tract infection. Patient presented with flank pain and CVA tenderness consistent with diagnosis of pyelonephritis. He was started on IV ceftriaxone with clinical improvement of his symptoms. CT of the abdomen and pelvis showed no acute abnormality. Right upper quadrant ultrasound was unremarkable. Chest x-ray showed no acute process. PLAN: Keflex for a total of 10 days. Patient encouraged to follow-up with primary care physician and has started weight loss program. verbalized understanding and agree with the plan. All questions answered. - Time Spent with Patient Total time spent providing and/or coordinating discharge services: - Constitutional Vitals: Temp Pulse Resp BP Pulse Ox 98.0 F 72 17 120/78 96 08/07/16 10:53 08/07/16 10:53 08/07/16 10:53 08/07/16 10:53 08/07/16 10:53 General appearance: Present: cooperative, A&O X 3, morbidly obese, pleasant, no acute distress, answers questions appropriately - Eye Eye exam: Present: PERRL. Absent: sclera anicteric - Neck Neck exam general surgery: Present: supple, trachea midline. Absent: lymphadenopathy - Respiratory Respiratory exam: Present: CTAB - Cardiovascular Cardiovascular exam: Present: RRR - GI/Abdominal GI/Abdominal exam: Present: normal bowel sounds, soft. Absent: distended, tenderness - Extremities Exam Extremities exam: Present: pedal edema - Back Exam Back exam: Absent: CVA tenderness (L), CVA tenderness (R) - Neurological Exam Neurological exam: Present: alert, oriented X3, no focal deficits, strengths equal and symetr throughout. Absent: facial droop, speech deficit - Skin Skin exam: Absent: rash
== END 2016-08-07 13:40 | disposition home or self-care (01) ==
LOC: 3BNU 13:01 → EMEROO 13:01 → SUATTDRO 17:34 → 3BNU 18:17
PROVIDERS: ADMIT Nurse Practitioner Family; ATTEND Internal Medicine

== ENCOUNTER 2016-12-26 09:58 | Inpatient (IN) ==
[2016-12-26] MEDS ORDERED: Aspirin 325 MG TABLET PO ONE (10:15)
[2016-12-26] MEDS ORDERED: *HR* HYDROmorphone (PF) 1 MG/ML SYRINGE IVP ONE (10:37)
[2016-12-26] MEDS ORDERED: 0.9 % Sodium Chloride 1,000 ML IVC ONE (10:37)
[2016-12-26] MEDS ORDERED: Aspirin 81 MG TAB.CHEW PO STA (10:38)
[2016-12-26] MEDS ORDERED: Ipratropium/Albuterol Neb 3 ML IH ONE (10:44)
--- NOTE | 2016-12-26 10:47 | Emergency Department Note ---
START Narrative - START START: I examined this patient and my medical decision-making was reviewed with the Resident Physician. I agree with the documented findings, disposition and treatment plan as described except to the extent set forth below. 61-year-old male presents emergency room for palpitations and shortness of breath and intermittent chest pain. States been short of breath for over 2 weeks. Having problems walking around the house. His history of atrial fibrillation. He has been off his Coumadin for 1 week as he was scheduled to have a left hip injection today for pain control. He did not get the injection today as he was feeling more palpitations. During my interview the patient said he had palpitations but the supercalender operator helper did not reveal any abnormalities. It appeared as though he was in a normal sinus rhythm with no evidence of any A. fib or any PVCs. His also had this new vague abdominal discomfort as well associated with dry heaves. We will do CT scan of abdomen and pelvis as well as lab work, cardiac and abdominal standpoint.
--- NOTE | 2016-12-26 10:50 | Emergency Department Note ---
Disposition Clinical Impression: COPD with acute exacerbation, Shortness of breath CHF (congestive heart failure) Qualifiers: Congestive heart failure type: systolic Congestive heart failure chronicity: acute Qualified Code(s): I50.21 - Acute systolic (congestive) heart failure Disposition: Admitted As Inpatient Condition: Fair Time of Disposition: 15:00 Arrhythmia/Palpitations HPI - General Chief Complaint: ED Arrhythmia/Palpitations Stated Complaint: palpatations Time Seen by Provider: 12/26/16 10:08 Source: patient Limitations: no limitations Nursing Notes Reviewed: Yes Vital Signs Reviewed: Yes - History of Present Illness HPI Narrative: 61-year-old male chief complaint of Shortness of breath sent in from Dr. Syed's office. Patient has a history of COPD, CHF and is still current smoker. Patient showed up for steroid injection of the left hip but because of the patient's back tenderness and abdominal tenderness along the patient's shortness of breath and pallor to his lips he was referred to the emergency department. Patient states currently has no pain but is short of breath. Patient states shortness of breath has been worsening over the past 2 weeks and over the past few days been difficult for him to get around without feeling heavy exertion. Patient having orthopnea as well. Patient also complains of heart palpitations. - Related Data Home Medications Medication Instructions Recorded Confirmed Albuterol Sulfate [Albuterol 2 puff IH Q4H PRN 08/04/16 12/26/16 Inhaler] Docusate Sodium [Stool Softener] 100 mg PO BID PRN 08/04/16 12/26/16 FLUoxetine HCl [Prozac] 20 mg PO DAILY 08/04/16 12/26/16 Fenofibrate Nanocrystallized 48 mg PO DAILY 08/04/16 12/26/16 [Tricor] Furosemide [Lasix] 80 mg PO TID 08/04/16 12/26/16 Gabapentin [Neurontin] 600 mg PO TID PRN 08/04/16 12/26/16 LORazepam [Ativan] 0.5 mg PO DAILY PRN 08/04/16 12/26/16 Meloxicam [Mobic] 15 mg PO DAILY 08/04/16 12/26/16 Metformin HCl [Glucophage] 1,000 mg PO BID 08/04/16 12/26/16 Nitroglycerin [Nitrostat] 0.4 mg SL Q5M PRN 08/04/16 12/26/16 Omeprazole [PriLOSEC] 20 mg PO BIDAC 08/04/16 12/26/16 Oxycodone HCl/Acetaminophen 1 each PO Q6H PRN 08/04/16 12/26/16 [Percocet 7.5-325 mg Tablet] Pentoxifylline [TRENtal] 400 mg PO BID 08/04/16 12/26/16 Potassium Chloride [K-Tab ER] 20 meq PO DAILY 08/04/16 12/26/16 Pravastatin Sodium [Pravachol] 40 mg PO HS 08/04/16 12/26/16 Spironolactone [Aldactone] 50 mg PO BID 08/04/16 12/26/16 Levothyroxine Sodium [Synthroid] 200 mcg PO DAILY 12/26/16 12/26/16 Allergies Allergy/AdvReac Type Severity Reaction Status Date / Time Amoxicillin [From Augmentin] Allergy Palpitation Verified 08/04/16 13:05 s clavulanic acid Allergy Palpitation Verified 08/04/16 13:05 [From Augmentin] s meperidine [From Demerol] Allergy Palpitation Verified 08/04/16 13:05 s sulfamethoxazole Allergy Rash Verified 08/04/16 13:05 [From Bactrim] trimethoprim [From Bactrim] Allergy Rash Verified 08/04/16 13:05 All systems ED: reviewed and negative except as stated. Review of Systems: As Per HPI Constitutional: Reports: weakness. Denies: fever, chills Eyes: Denies: vision change ENT ED: Denies: congestion Cardiovascular: Reports: palpitations. Denies: chest pain Respiratory: Reports: cough, dyspnea, wheezes Gastrointestinal: Reports: abdominal pain, nausea. Denies: vomiting, diarrhea, constipation, hematemesis, melena, hematochezia Genitourinary: Denies: urgency, dysuria, frequency Musculoskeletal: Reports: back pain. Denies: neck pain, joint swelling Integumentary: Denies: rash Neurological: Denies: headache, numbness, paresthesias Psychiatric: Reports: anxiety Endocrine: Reports: fatigue Allergic/Immunologic: Denies: facial swelling Past Medical History - Past Medical History Attestation: Yes The following information was validated with the patient. Source: patient Medical history: Reports: asthma, atrial fibrillation, CHF, COPD, diabetes, myocardial infarction, peripheral artery disease, thyroid disease, other Surgical history: Reports: angioplasty/stent, orthopedic, other Psychiatric history: Reports: no psych history - Social History Smoking Status: Current every day smoker Smokeless Tobacco Status: No Alcohol use: Reports: rarely Drug use: Reports: none Physical Exam - General Limitations: no limitations General appearance: alert - Head Head exam: atraumatic, normocephalic, normal inspection - Eye Eye exam: Present: normal appearance, PERRL, EOMI - ENT ENT exam: normal exam, normal oropharynx, mucous membranes dry, other (Lips are pale,) - Neck Neck exam: Present: normal inspection, full ROM, trachea midline. Absent: tenderness - Chest Chest inspection: Present: normal inspection, symmetric chest wall rise. Absent : tenderness - Respiratory Respiratory exam: Present: wheezes (Bilateral lower lung alberts), other ( Patient has increased work of breathing as replaced on oxygen) - Cardiovascular Cardiovascular exam: Present: regular rate, normal rhythm, normal heart sounds - Abdominal Exam Abdominal exam: Present: soft, Non-Tender, tenderness, guarding (Muscle guarding left upper quadrant), normal bowel sounds. Absent: rigidity Abdominal tenderness: Present: RUQ, RLQ, LUQ, LLQ, diffuse - Extremities Exam Extremities exam: Present: full ROM, normal capillary refill, other (Mild bilateral edema less than 1+ pitting). Absent: tenderness, pedal edema Course - Consultations Consultation #1: Patient is admitted by the hospitalist at 1410 hrs. Time: 14:11 Vital Signs Temperature 97.8 F 12/26/16 10:02 Pulse Rate 73 12/26/16 10:02 Respiratory Rate 22 12/26/16 10:02 Blood Pressure 145/97 12/26/16 10:02 O2 Sat by Pulse Oximetry 96 12/26/16 10:02 Temperature 98.0 F 12/26/16 19:00 Pulse Rate 87 12/26/16 19:00 Respiratory Rate 17 12/26/16 20:10 Blood Pressure 128/82 12/26/16 19:00 O2 Sat by Pulse Oximetry 98 12/26/16 20:10 Oxygen Delivery Oxygen Delivery Nasal Cannula Arrhythmia/Palpitations - MDM Narrative Medical decision making narrative: Patient concerning for CHF exacerbation, COPD exacerbation, pneumonia, pancreatitis, cholecystitis, acute mesenteric ischemia, AAA Patient is negative CBC for anemia or elevation of white count, patient has negative findings on hepatic panel, negative lactic acid, negative troponin. Patient's urine history but low suspicion for UTI secondary to high count of swallow cells and low leukocyte esterase. Patient currently afebrile. Imaging: Chest X-Ray 12/26/16 10:15 IMPRESSION: Mild CHF. D/ / Parviz Alexander MD / Parviz Alexander MD Interpreting Provider: Parviz Alexander MD Abdomen/Pelvis CT 12/26/16 10:34 IMPRESSION: No acute intra-abdominal or pelvic abnormality. D/ / 12/26/2016 11:23:26 Jaime Cotto MD / [facility] Interpreting Provider: Jaime Cotto MD Chest x-ray concerns for CHF but no pleural effusions. BNP was negative. Patient has large body habitus and has a BMI of 54 which may make it difficult to assess for acute CHF exacerbation. Patient is short of breath, has orthopnea, patient was given DuoNeb therapy which has improved patient's breathing and is not able to lay back comfortably without getting short of breath. Patient's work of breathing has calmed down. However, any exertion exacerbates patient condition. Recommend admission for CHF exacerbation and COPD exacerbation. He understands and agrees to treatment plan for admission Patient is admitted except and by hospitalist Dr. Herrera - Lab Data Lab results reviewed: Yes I reviewed the patient's lab results. Lab results narrative: Chest X-Ray 12/26/16 10:15 IMPRESSION: Mild CHF. D/ / Parviz Alexander MD / Parviz Alexander MD Interpreting Provider: Parviz Alexander MD Abdomen/Pelvis CT 12/26/16 10:34 IMPRESSION: No acute intra-abdominal or pelvic abnormality. D/ /26/2016 11:23:26 Jaime Cotto MD / [facility] Interpreting Provider: Jaime Cotto MD Short CBC 12/26/16 Range/Units 10:47 WBC 10.9 (4.3-11.1) K/mcL Hgb 13.9 (12.9-16.9) g/dL Hct 44.6 (37.5-50.1) % Plt Count 211 (140-400) K/mcL Neutrophils # 6.5 (1.6-8.9) K/mcL BMP 12/26/16 Range/Units 10:47 Sodium 136 (136-145) mEq/L Potassium 4.1 (3.5-4.5) mEq/L Chloride 102 (98-109) mEq/L Carbon Dioxide 23 (19-29) mEq/L BUN 15 (8-26) mg/dL Creatinine 0.92 (0.72-1.25) mg/dL Glucose 113 H (70-99) mg/dL Calcium 9.6 (8.6-10.8) mg/dL Cardiac Enzymes 12/26/16 12/26/16 Range/Units 17:14 10:47 Troponin I 0.00 0.01 (0-0.03) ng/mL Liver Function 12/26/16 Range/Units 10:52 Total Bilirubin 0.4 (0.2-1.2) mg/dL Direct Bilirubin 0.2 (0.0-0.5) mg/dL AST 16 (5-34) Units/L ALT 13 (0-55) Units/L Alkaline Phosphatase 53 (38-126) Units/L Albumin 3.5 (3.5-5.0) g/dL Urine 12/26/16 Range/Units 14:27 Urine Color Dark Yellow (Yellow) Urine Clarity Slightly Hazy (Clear) Urine pH 5.5 (5.0-8.0) pH Units Ur Specific [place] > 1.030 H (1.010-1.025) Urine Protein 30 H (Neg-Trace) mg/dL Urine Glucose (UA) Normal (Normal) mg/dL Result diagrams: 12/26/16 10:47 12/26/16 10:47 Lab Results 12/26/16 12/26/16 12/26/16 Range/Units 10:47 10:47 10:47 WBC 10.9 (4.3-11.1) K/mcL RBC 4.95 (4.19-5.50) M/mcL Hgb 13.9 (12.9-16.9) g/dL Hct 44.6 (37.5-50.1) % MCV 90.1 (83.0-100.0) fL MCH 28.1 (28.0-33.3) pg MCHC 31.2 L (31.6-35.5) g/dL RDW 15.1 H (11.5-14.5) % Plt Count 211 (140-400) K/mcL MPV 10.6 (9.4-12.4) fL Immature Gran % 0.4 (0-4) % Seg Neutrophils % 59.5 % Lymphocytes % 29.7 % Monocytes % 8.8 % Eosinophils % 1.1 % Basophils % 0.5 % Neutrophils # 6.5 (1.6-8.9) K/mcL Lymphocytes # 3.2 (0.6-4.6) K/mcL Monocytes # 1.0 (0.0-1.3) K/mcL Eosinophils # 0.1 (0.0-0.6) K/mcL Basophils # 0.1 (0.0-0.2) K/mcL Immature Plt Fraction 7.1 H (1.1-6.1) % PT 11.4 (9.4-12.1) Seconds INR 1.1 APTT 32.4 (26.0-36.0) Seconds Sodium 136 (136-145) mEq/L Potassium 4.1 (3.5-4.5) mEq/L Chloride 102 (98-109) mEq/L Carbon Dioxide 23 (19-29) mEq/L BUN 15 (8-26) mg/dL Creatinine 0.92 (0.72-1.25) mg/dL Est GFR ( Amer) > 60 (> 60) Est GFR (Non-Af Amer) > 60 (> 60) BUN/Creatinine Ratio 16 (6-26) Glucose 113 H (70-99) mg/dL POC Glucose (58-89) Calculated Osmolality 284 (280-300) Lactic Acid (0.5-2.2) mmol/L Calcium 9.6 (8.6-10.8) mg/dL Total Bilirubin (0.2-1.2) mg/dL Direct Bilirubin (0.0-0.5) mg/dL Indirect Bilirubin (0.0-1.2) mg/dL AST (5-34) Units/L ALT (0-55) Units/L Alkaline Phosphatase (38-126) Units/L Troponin I (0-0.03) ng/mL B-Natriuretic Peptide (0-100) pg/mL Serum Total Protein (6.0-8.3) g/dL Albumin (3.5-5.0) g/dL Globulin (2.4-3.5) g/dL Albumin/Globulin Ratio (1.1-2.2) Lipase (8-78) Units/L TSH 0.503 (0.350-4.840) mcIU/mL Urine Color (Yellow) Urine Clarity (Clear) Urine pH (5.0-8.0) pH Units Ur Specific [place] (1.010-1.025) Urine Protein (Neg-Trace) mg/dL Urine Glucose (UA) (Normal) mg/dL Urine Ketones (Negative) mg/dL Urine Blood (Negative) Urine Nitrite (Negative) Urine Bilirubin (Negative) Urine Urobilinogen (Normal) mg/dL Ur Leukocyte Esterase (Negative) Urine Microscopic RBC (0-3) per hpf Urine Microscopic WBC (0-3) per hpf Ur Squamous Epith Cells (None-Few) per lpf Urine Bacteria (None-Few) per hpf Hyaline Casts (None-Few) per lpf Ur Culture Indicated? (NO) 12/26/16 12/26/16 12/26/16 Range/Units 10:47 10:47 10:52 WBC (4.3-11.1) K/mcL RBC (4.19-5.50) M/mcL Hgb (12.9-16.9) g/dL Hct (37.5-50.1) % MCV (83.0-100.0) fL MCH (28.0-33.3) pg MCHC (31.6-35.5) g/dL RDW (11.5-14.5) % Plt Count (140-400) K/mcL MPV (9.4-12.4) fL Immature Gran % (0-4) % Seg Neutrophils % % Lymphocytes % % Monocytes % % Eosinophils % % Basophils % % Neutrophils # (1.6-8.9) K/mcL Lymphocytes # (0.6-4.6) K/mcL Monocytes # (0.0-1.3) K/mcL Eosinophils # (0.0-0.6) K/mcL Basophils # (0.0-0.2) K/mcL Immature Plt Fraction (1.1-6.1) % PT (9.4-12.1) Seconds INR APTT (26.0-36.0) Seconds Sodium (136-145) mEq/L Potassium (3.5-4.5) mEq/L Chloride (98-109) mEq/L Carbon Dioxide (19-29) mEq/L BUN (8-26) mg/dL Creatinine (0.72-1.25) mg/dL Est GFR ( Amer) (> 60) Est GFR (Non-Af Amer) (> 60) BUN/Creatinine Ratio (6-26) Glucose (70-99) mg/dL POC Glucose (58-89) Calculated Osmolality (280-300) Lactic Acid (0.5-2.2) mmol/L Calcium (8.6-10.8) mg/dL Total Bilirubin 0.4 (0.2-1.2) mg/dL Direct Bilirubin 0.2 (0.0-0.5) mg/dL Indirect Bilirubin 0.2 (0.0-1.2) mg/dL AST 16 (5-34) Units/L ALT 13 (0-55) Units/L Alkaline Phosphatase 53 (38-126) Units/L Troponin I 0.01 (0-0.03) ng/mL B-Natriuretic Peptide 11 (0-100) pg/mL Serum Total Protein 7.1 (6.0-8.3) g/dL Albumin 3.5 (3.5-5.0) g/dL Globulin 3.6 H (2.4-3.5) g/dL Albumin/Globulin Ratio 1.0 L (1.1-2.2) Lipase 35 (8-78) Units/L TSH (0.350-4.840) mcIU/mL Urine Color (Yellow) Urine Clarity (Clear) Urine pH (5.0-8.0) pH Units Ur Specific [place] (1.010-1.025) Urine Protein (Neg-Trace) mg/dL Urine Glucose (UA) (Normal) mg/dL Urine Ketones (Negative) mg/dL Urine Blood (Negative) Urine Nitrite (Negative) Urine Bilirubin (Negative) Urine Urobilinogen (Normal) mg/dL Ur Leukocyte Esterase (Negative) Urine Microscopic RBC (0-3) per hpf Urine Microscopic WBC (0-3) per hpf Ur Squamous Epith Cells (None-Few) per lpf Urine Bacteria (None-Few) per hpf Hyaline Casts (None-Few) per lpf Ur Culture Indicated? (NO) 12/26/16 12/26/16 12/26/16 Range/Units 10:52 14:27 15:15 WBC (4.3-11.1) K/mcL RBC (4.19-5.50) M/mcL Hgb (12.9-16.9) g/dL Hct (37.5-50.1) % MCV (83.0-100.0) fL MCH (28.0-33.3) pg MCHC (31.6-35.5) g/dL RDW (11.5-14.5) % Plt Count (140-400) K/mcL MPV (9.4-12.4) fL Immature Gran % (0-4) % Seg Neutrophils % % Lymphocytes % % Monocytes % % Eosinophils % % Basophils % % Neutrophils # (1.6-8.9) K/mcL Lymphocytes # (0.6-4.6) K/mcL Monocytes # (0.0-1.3) K/mcL Eosinophils # (0.0-0.6) K/mcL Basophils # (0.0-0.2) K/mcL Immature Plt Fraction (1.1-6.1) % PT (9.4-12.1) Seconds INR APTT (26.0-36.0) Seconds Sodium (136-145) mEq/L Potassium (3.5-4.5) mEq/L Chloride (98-109) mEq/L Carbon Dioxide (19-29) mEq/L BUN (8-26) mg/dL Creatinine (0.72-1.25) mg/dL Est GFR ( Amer) (> 60) Est GFR (Non-Af Amer) (> 60) BUN/Creatinine Ratio (6-26) Glucose (70-99) mg/dL POC Glucose 117 H (58-89) Calculated Osmolality (280-300) Lactic Acid 1.6 (0.5-2.2) mmol/L Calcium (8.6-10.8) mg/dL Total Bilirubin (0.2-1.2) mg/dL Direct Bilirubin (0.0-0.5) mg/dL Indirect Bilirubin (0.0-1.2) mg/dL AST (5-34) Units/L ALT (0-55) Units/L Alkaline Phosphatase (38-126) Units/L Troponin I (0-0.03) ng/mL B-Natriuretic Peptide (0-100) pg/mL Serum Total Protein (6.0-8.3) g/dL Albumin (3.5-5.0) g/dL Globulin (2.4-3.5) g/dL Albumin/Globulin Ratio (1.1-2.2) Lipase (8-78) Units/L TSH (0.350-4.840) mcIU/mL Urine Color Dark Yellow (Yellow) Urine Clarity Slightly Hazy (Clear) Urine pH 5.5 (5.0-8.0) pH Units Ur Specific [place] > 1.030 H (1.010-1.025) Urine Protein 30 H (Neg-Trace) mg/dL Urine Glucose (UA) Normal (Normal) mg/dL Urine Ketones Negative (Negative) mg/dL Urine Blood Negative (Negative) Urine Nitrite Negative (Negative) Urine Bilirubin Small H (Negative) Urine Urobilinogen Normal (Normal) mg/dL Ur Leukocyte Esterase Trace H (Negative) Urine Microscopic RBC 3-5 H (0-3) per hpf Urine Microscopic WBC 5-15 H (0-3) per hpf Ur Squamous Epith Cells Many H (None-Few) per lpf Urine Bacteria None Seen (None-Few) per hpf Hyaline Casts Moderate H (None-Few) per lpf Ur Culture Indicated? YES A (NO) - EKG Data EKG attestation: Yes I reviewed and interpreted this EKG. EKG results narrative: EKG taken 12/26/2016 at 1005 hrs. shows a sinus rhythm low voltage at a rate of [address] elevations or depressions any leads, previous EKG taken 08/04 shows sinus rhythm at a rate of [address] elevations or depressions any leads both EKGs show no gross widening no QT prolongation, negative for was negative for data no S1 Q3 T3
[2016-12-26 11:00] LABS: Basophils # 0.1 K/mcL (0.0-0.2); Basophils % 0.5 %; Eosinophils # 0.1 K/mcL (0.0-0.6); Eosinophils % 1.1 %; Hematocrit 44.6 % (37.5-50.1); Hemoglobin 13.9 g/dL (12.9-16.9); Immature Granulocytes % 0.4 % (0-4); Immature Platelets 7.1 % (1.1-6.1); Lymphocytes # 3.2 K/mcL (0.6-4.6); Lymphocytes % 29.7 %; Mean Corpuscular HGB Conc 31.2 g/dL (31.6-35.5); Mean Corpuscular Hemoglobin 28.1 pg (28.0-33.3); Mean Corpuscular Volume 90.1 fL (83.0-100.0); Mean Platelet Volume 10.6 fL (9.4-12.4); Monocytes % 8.8 %; Neutrophils # 6.5 K/mcL (1.6-8.9); Platelet Count 211 K/mcL (140-400); Red Blood Count 4.95 M/mcL (4.19-5.50); Red Cell Distribution Width 15.1 % (11.5-14.5); Segmented Neutrophils % 59.5 %
[2016-12-26 11:12] LABS: BUN/Creatinine Ratio 16 (6-26); Blood Urea Nitrogen 15 mg/dL (8-26); Calcium 9.6 mg/dL (8.6-10.8); Carbon Dioxide 23 mEq/L (19-29); Chloride 102 mEq/L (98-109); Glucose 113 mg/dL (70-99); Osmolality,Calculated 284 (280-300); Potassium 4.1 mEq/L (3.5-4.5); Sodium 136 mEq/L (136-145); eGFR For African Americans > 60 (> 60); eGFR For Non-African Americans > 60 (> 60)
[2016-12-26 11:14] LABS: INR 1.1; Prothrombin Time 11.4 Seconds (9.4-12.1)
[2016-12-26 11:17] LABS: Activated Partial Thrombo Time 32.4 Seconds (26.0-36.0)
[2016-12-26 11:33] LABS: Thyroid Stimulating Hormone 0.503 mcIU/mL (0.350-4.840)
[2016-12-26 12:19] LABS: Albumin 3.5 g/dL (3.5-5.0); Bilirubin,Direct 0.2 mg/dL (0.0-0.5); Bilirubin,Indirect 0.2 mg/dL (0.0-1.2); Bilirubin,Total 0.4 mg/dL (0.2-1.2); Globulin 3.6 g/dL (2.4-3.5); Total Protein 7.1 g/dL (6.0-8.3)
[2016-12-26 14:31] LABS: Bilirubin,Urine Small (Negative); Blood,Urine Negative (Negative); Color,Urine Dark Yellow (Yellow); Glucose,Urine (UA) Normal (Normal); Ketones,Urine Negative (Negative); Leukocyte Esterase,Urine Trace (Negative); Nitrite,Urine Negative (Negative); PH,Urine 5.5 pH Units (5.0-8.0); Protein,Urine 30 mg/dL (Neg-Trace); Specific Gravity,Urine > 1.030 (1.010-1.025); Urobilinogen,Urine Normal (Normal)
[2016-12-26 14:33] LABS: Bacteria,Urine None Seen per hpf (None-Few); Hyaline Casts,Urine Moderate per lpf (None-Few); Squamous Epithelial Cell,Urine Many per lpf (None-Few)
[2016-12-26 14:34] LABS: Clarity,Urine Slightly Hazy (Clear)
[2016-12-26] MEDS ORDERED: Naloxone 0.4 MG/ML INJ IVP PRN (16:20)
[2016-12-26] MEDS ORDERED: Acetaminophen 325 MG TABLET PO PRN (16:25)
[2016-12-26] MEDS ORDERED: Gabapentin 300 MG CAPSULE PO PRN (16:31)
[2016-12-26] MEDS ORDERED: Nitroglycerin 0.4 MG TAB.SUBL SL PRN (16:31)
[2016-12-26] MEDS ORDERED: D5% in Water 1,000 ML IVC PRN (16:41)
[2016-12-26] MEDS ORDERED: Dextrose Gel 15 GM PO PRN ×2 (16:41)
[2016-12-26] MEDS ORDERED: *HR* Dextrose 50 % in Water (Syg) 50 ML SYRINGE IVP PRN (16:41)
--- NOTE | 2016-12-26 16:52 | Internal Med History&Physical ---
<Jaime Ware - Last Filed: 12/26/16 18:16> Date of Encounter: 12/26/16 Time of Encounter: 15:00 Assessment and Plan (1) Acute exacerbation of CHF (congestive heart failure) Current visit: Yes Status: Acute Patient presents with shortness of breath related to current diagnosis of acute exacerbation of CHF. Single view CXR today shows mild CHF. Patient placed on continuous cardiac telemetry due to current chest pressure. IVP lasix 120 mg BID ordered with 10 mg PO Zaroxolyn in the a.m. to be administered 1 hour prior to morning lasix dose. Supplemental O2 with titration and continuous SpO2 monitoring. DuoNebs Q4 scheduled. Monitor I&O and daily weight. Falls/safety precautions. Qualifiers: Congestive heart failure type: diastolic Qualified Code(s): I50.33 - Acute on chronic diastolic (congestive) heart failure (2) Chest pressure Current visit: Yes Status: Acute Patient presents with acute chest pressure that he reports began several days ago and is centralized in his chest. Patient currently has acute exacerbation of CHF which may be causing his current chest pressure with SOB. Patient has pertinent history of atrial fibrillation, CHF, COPD, previous CO, and PAD. Patient reports arrhythmia and palpitations, but current exam and EKG show patient in sinus rhythm. Initial troponin 0.01. Will trend troponins x2. Patient to be placed on continuous cardiac telemetry. Echocardiogram ordered. Nitroglycerin PRN. Supplemental O2 with SpO2 monitoring. DuoNebs Q4 scheduled for CHF exacerbation. Will consider cardiology consult based on echo/troponin results. (3) Bilateral flank pain Current visit: Yes Status: Acute Patient presents with severe bilateral flank pain on examination that he states has been occurring for several weeks. He also states he feels as though he cannot empty his bladder completely. Patient has familial history of renal calculi but has not been diagnosed with stones previously. Patient states he is having difficulty urinating and that the pain goes to his pelvis and groin. History of UTIs and U/A indicative of culture. Retroperitoneal complete U/S ordered. Urine culture ordered. IV levaquin 750 mg daily for infection coverage. Bladder scan ordered to assess for possible Pepe placement. (4) UTI (urinary tract infection) Current visit: Yes Status: Suspected Patient presents with acute bilateral flank pain and urine specimen that is tea- colored and indicative of culture. Patient also states he cannot empty his bladder completely. Patient states his last UTI was in January. Urine culture ordered. Will begin IV antibiotics based on culture results. Retroperitoneal complete U/S ordered to rule out possible renal stones or pyelonephritis. Monitor I&O and daily weight. Bladder scan ordered. IV levaquin 750 mg daily ordered for infection coverage. Qualifiers: Urinary tract infection type: site unspecified Hematuria presence: without hematuria Qualified Code(s): N39.0 - Urinary tract infection, site not specified (5) Shortness of breath Current visit: Yes Status: Acute Patient presents with shortness of breath related to current diagnosis of acute exacerbation of CHF. IVP lasix 120 mg BID ordered with 10 mg PO Zaroxolyn in the a.m. to be administered 1 hour prior to morning lasix dose. Supplemental O2 with titration and continuous SpO2 monitoring. DuoNebs Q4 scheduled. Monitor I& O and daily weight. Falls/safety precautions. (6) Tobacco abuse counseling Current visit: Yes Status: Acute Patient counseled >10 minutes regarding smoking cessation and the importance on his CHF and COPD diagnoses. Also educated patient on techniques for quitting. 21 mg nicotine patch ordered daily. (7) Afib Current visit: Yes Status: Chronic Patient presents with history of chronic Afib. Patient's EKG today shows sinus rhythm with low QRS voltage in precordial leads. During examination, patient is currently in sinus rhythm. Patient placed on continuous cardiac telemetry due to current chest pressure. Will continue patient's HTN and HLD medications. Qualifiers: Atrial fibrillation type: paroxysmal Qualified Code(s): I48.0 - Paroxysmal atrial fibrillation (8) COPD (chronic obstructive pulmonary disease) Current visit: Yes Status: Chronic Patient presents with history of chronic COPD and reports he currently smokes 1 PPD. DuoNebs Q4 scheduled. Supplemental O2 with titration if SpO2 <92%. Continuous SpO2 monitoring. Qualifiers: COPD type: unspecified COPD Qualified Code(s): J44.9 - Chronic obstructive pulmonary disease, unspecified (9) DVT prophylaxis Current visit: Yes Status: Acute Patient to be placed on DVT prophylaxis due to current admission protocol and bed rest status. Heparin 5,000 units SQ Q8 ordered. Internal Medicine - H&P: HPI Chief complaint: Arrhythmia/Palpitations Admitted From: Emergency Dept Plans for Post Hospital Care: Home History of present illness: Mr. Davila is a 61 year old male who presents from the ED with chief complaint of increasing shortness of breath over the past 3 weeks as well as chest pressure which has manifested over the past 48 hours. Patient reports having a feeling of arrhythmia/palpitations in his chest during these 48 hours. Patient states that the chest pressure is intermittent and becomes worse with inspiration and laying down. In addtion, Mr. Davila reports severe bilateral flank pain in his back for several weeks that is confirmed during examination. Patient has a familial history of renal stones and has a personal history of UTIs with his last one in January. Patient's U/A in ED indicative of urine culture. Mr. 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 Signs on admissions include temperature 97.8 F, pulse rate of 73, respiratory rate of 22, blood pressure 129 /91, and SPO2 of 94% on room air. Patient's initial troponin in ED was 0.01. Lactic acid was 1.6. Information was obtained from the patient, chart review, and previous medical reports. Time spent with patient >40 minutes. Patient is at high risk for further morbidity and will be placed as inpatient. Patient counseled >10 minutes regarding smoking cessation. Past Med Surg Social Fam HX - Past Medical History Source: patient, old records reviewed Medical history: asthma, atrial fibrillation, CHF, COPD, diabetes, myocardial infarction, peripheral artery disease, thyroid disease, other Psychiatric history: no psych history - Past Surgical History Surgical History: angioplasty/stent, orthopedic, other (Left hand), other ( Bilateral eye surgery) - Social History Smoking Status: Current every day smoker Packs per day: 1 PPD Smokeless Tobacco Status: No Alcohol use: rarely Drug use: none Current living situation: Home Activity Level: Independent ambulation, Uses cane/walker Recent Out of Country Travel Within the Last 8 Weeks: No Exposure or Possible Exposure to Illness During Travel: No - Family History Mother Race: Family Member Ethnicity: Non- Living Status: Age at : 72 Cause of : Non-alcoholic cirrhosis Father Race: Family Member Ethnicity: Non- Living Status: Age at : 78 Cause of : Pancreatic cancer Hx Family Cancer: Yes (Pancreatic) Hx Family Genitourinary Disorders: Yes (Kidney stones) Brother Race: Family Member Ethnicity: Non- Living Status: Still Living Hx Family Cardiac Disorders: Yes (HD, Pacemaker) Sister History Unknown: Yes Race: Family Member Ethnicity: Non- Living Status: Still Living Internal Medicine - H&P: Meds Albuterol Sulfate [Albuterol Inhaler] 2 puff IH Q4H PRN 08/04/16 [History] Docusate Sodium [Stool Softener] 100 mg PO BID PRN 08/04/16 [History] FLUoxetine HCl [Prozac] 20 mg PO DAILY 08/04/16 [History] Fenofibrate Nanocrystallized [Tricor] 48 mg PO DAILY 08/04/16 [History] Furosemide [Lasix] 80 mg PO TID 08/04/16 [History] Gabapentin [Neurontin] 600 mg PO TID PRN 08/04/16 [History] LORazepam [Ativan] 0.5 mg PO DAILY PRN 08/04/16 [History] Meloxicam [Mobic] 15 mg PO DAILY 08/04/16 [History] Metformin HCl [Glucophage] 1,000 mg PO BID 08/04/16 [History] Nitroglycerin [Nitrostat] 0.4 mg SL Q5M PRN 08/04/16 [History] Omeprazole [PriLOSEC] 20 mg PO BIDAC 08/04/16 [History] Oxycodone HCl/Acetaminophen [Percocet 7.5-325 mg Tablet] 1 each PO Q6H PRN 08/04 [History] Pentoxifylline [TRENtal] 400 mg PO BID 08/04/16 [History] Potassium Chloride [K-Tab ER] 20 meq PO DAILY 08/04/16 [History] Pravastatin Sodium [Pravachol] 40 mg PO HS 08/04/16 [History] Spironolactone [Aldactone] 50 mg PO BID 08/04/16 [History] Levothyroxine Sodium [Synthroid] 200 mcg PO DAILY 12/26/16 [History] 3 Allergy/AdvReac Type Severity Reaction Status Date / Time Amoxicillin [From Augmentin] Allergy Palpitation Verified 08/04/16 13:05 s clavulanic acid Allergy Palpitation Verified 08/04/16 13:05 [From Augmentin] s meperidine [From Demerol] Allergy Palpitation Verified 08/04/16 13:05 s sulfamethoxazole Allergy Rash Verified 08/04/16 13:05 [From Bactrim] trimethoprim [From Bactrim] Allergy Rash Verified 08/04/16 13:05 All Systems PM: A 10-system review of systems was performed and is negative for pertinent findings except as documented above in the HPI. - Constitutional Constitutional: no chills, no fever(s), no night sweats - EENT Eyes: no change in vision, no discharge, no pain, no photophobia Ears: no ear discharge, no ear pain, no tinnitus Nose, mouth and throat: no dysphagia, no nasal discharge, no neck pain, no sore throat - Breasts Breasts: as per HPI - Cardiovascular Cardiovascular ROS IM: as per HPI, chest pain (Described as pressure), dyspnea, dyspnea on exertion, irregular heart rhythm, orthopnea - Respiratory Respiratory: as per HPI, dyspnea, dyspnea on exertion, pain on inspiration - Gastrointestinal Gastrointestinal: no abdominal pain, no diarrhea, no hematemesis, no hematochezia, no melena, no nausea, no vomiting - Genitourinary Genitourinary ROS male: as per HPI, difficulty urinating, flank pain (Bilateral) - Musculoskeletal Musculoskeletal ROS IM: as per HPI, back pain - Integumentary Integumentary IM: no rash, no unusual bruising - Neurological Neurological ROS: no confusion, no convulsions, no focal weakness, no numbness, no tingling, no tremor(s) - Psychiatric Psychiatric: as per HPI - Endocrine Endocrine IM: as per HPI - Hematologic/Lymphatic Hematologic/Lymphatic: no easy bruising - Allergic/Immunologic Allergic/Immunologic: as per HPI - Constitutional Vitals: Temp Pulse Resp BP Pulse Ox 97.5 F L 78 17 149/88 97 12/26/16 15:07 12/26/16 15:07 12/26/16 15:07 12/26/16 15:07 12/26/16 15:07 General appearance: Present: cooperative, A&O X 3, morbidly obese, pleasant, severe distress (Back/flank pain), answers questions appropriately - Head Head exam: Present: atraumatic, normocephalic - Eye Eye exam: Present: PERRL, conjuntiva pink, sclera anicteric Pupils: Present: PERRL - ENT ENT exam: Present: normal exam, normal external ear exam - Neck Neck exam general surgery: Present: normal inspection, supple, trachea midline. Absent: lymphadenopathy - Respiratory Respiratory exam: Present: accessory muscle use, decreased breath sounds, respiratory distress, wheezes. Absent: rales, rhonchi - Cardiovascular Cardiovascular exam: Present: RRR, +S1, +S2. Absent: diastolic murmur, gallop, rubs, systolic murmur - GI/Abdominal GI/Abdominal exam: Present: normal bowel sounds, soft, no peritoneal signs. Absent: distended, tenderness - Rectal Rectal exam: Present: deferred - Additional comments: exam deferred. - Extremities Exam Extremities exam: Present: pedal edema, warm, radial pulses palpable and symmetrical. Absent: calf tenderness, cyanotic - Back Exam Back exam: Present: CVA tenderness (L), CVA tenderness (R) - Neurological Exam Neurological exam: Present: CN II-XII intact, oriented X3, no focal deficits. Absent: pronater drift, facial droop, speech deficit - Psychiatric Psychiatric exam: Present: normal affect, normal mood - Skin Skin exam: Present: dry, intact Internal Med - H&P Results - Labs CBC & Chem 7: 12/26/16 10:47 12/26/16 10:47 Labs: Urine 12/26/16 Range/Units 14:27 Urine Color Dark Yellow (Yellow) Urine Clarity Slightly Hazy (Clear) Urine pH 5.5 (5.0-8.0) pH Units Ur Specific [place] > 1.030 H (1.010-1.025) Urine Protein 30 H (Neg-Trace) mg/dL Urine Glucose (UA) Normal (Normal) mg/dL - EKG Data EKG shows normal: sinus rhythm - EKG Data Prior EKG available for review: yes When compared to previous EKG: there is no significant change EKG comments: 12/26/16 17:43 EKG dated 08/04/16 shows sinus rhythm with borderline left axis deviation and possible right ventricular conduction delay. EKG dated 12/26/16 shows sinus rhythm with low QRS voltage in precordial leads and borderline ECG. - Diagnostic Studies CT scan - abdomen Additional comments: Impressions Abdomen/Pelvis CT 12/26/16 10:34 IMPRESSION: No acute intra-abdominal or pelvic abnormality. D/ / 12/26/2016 11:23:26 Jaime Cotto MD / earnold Interpreting Provider: Jaime Cotto MD Chest x-ray Additional comments: Impressions Chest X-Ray 12/26/16 10:15 IMPRESSION: Mild CHF. D/ / Parviz Alexander MD / Parviz Alexander MD Interpreting Provider: Parviz Alexander MD <Zane Herrera - Last Filed: 12/26/16 20:02> Date of Encounter: 12/26/16 Internal Medicine - H&P: HPI History of present illness: Mr. Davila is a 61 year old male All Systems PM: A 10-system review of systems was performed and is negative for pertinent findings except as documented above in the HPI. - Constitutional Vitals: Temp Pulse Resp BP Pulse Ox 98.0 F 87 19 128/82 96 12/26/16 19:00 12/26/16 19:00 12/26/16 19:00 12/26/16 19:00 12/26/16 19:00 Internal Med - H&P Results - Labs CBC & Chem 7: 12/26/16 10:47 12/26/16 10:47 Labs: Cardiac Enzymes 12/26/16 Range/Units 17:14 Troponin I 0.00 (0-0.03) ng/mL - Attending Attestation i have personally seen and examined discussed the care plan with advanced nurse practitioner. Patient was originally planned to get an epidural in pain clinic today was needed to be quite short of breath and having abdominal pain therefore transferred via he was seen. His abdominal pain is radiating from his flank versus inguinal area very classic for renal: Colic. A noncontrast CT was done by ER physician and I think he should have had a contrast CT. In any case we will go ahead and do an ultrasound to rule out any hydronephrosis in the morning we can decide whether we need to perform CT abdomen with contrast. Patient has been started on antibiotics. He is also noted to have CHF and therefore IV Lasix 120 mg twice a day and Zaroxolyn 10 mg daily have been started. 2 naps for his COPD.
[2016-12-26] MEDS: Insulin LISPRO 300 UNITS/3 ML VIAL SQ SCH ×2 (17:05→21:15)
[2016-12-26] MEDS: Furosemide 40 MG/4 ML VIAL IVP SCH (17:19)
[2016-12-26] MEDS: Nicotine 21 MG PATCH.TD24 TD SCH (17:50)
[2016-12-26] MEDS ORDERED: Levofloxacin 750 MG/150 ML 750 MG/150 ML BAG IVPB SCH (19:00)
[2016-12-26] MEDS: Ipratropium/Albuterol Neb 3 ML IH SCH (20:04)
[2016-12-26] MEDS: *HR* Heparin 5,000 UNIT/ML VIAL SQ SCH (21:15)
[2016-12-26] MEDS: Pantoprazole 40 MG VIAL IVP SCH (21:15)
[2016-12-26] MEDS: *HR* HYDROcodone/Acet 5/325 mg TABLET PO PRN (21:45)
[2016-12-27] MEDS: Ipratropium/Albuterol Neb 3 ML IH SCH ×6 (00:15→20:45)
[2016-12-27] MEDS: *HR* Morphine 2 MG/ML SYRINGE IVP PRN ×4 (01:01→22:57)
[2016-12-27] MEDS: Ondansetron 4 MG/2 ML VIAL IVP PRN ×2 (02:00→22:46)
[2016-12-27 04:46] LABS: Basophils % 0.4 %; Eosinophils # 0.2 K/mcL (0.0-0.6); Eosinophils % 1.4 %; Hematocrit 41.8 % (37.5-50.1); Hemoglobin 12.9 g/dL (12.9-16.9); Immature Granulocytes % 0.4 % (0-4); Lymphocytes # 3.5 K/mcL (0.6-4.6); Lymphocytes % 33.1 %; Mean Corpuscular HGB Conc 30.9 g/dL (31.6-35.5); Mean Corpuscular Hemoglobin 27.9 pg (28.0-33.3); Mean Corpuscular Volume 90.5 fL (83.0-100.0); Mean Platelet Volume 10.9 fL (9.4-12.4); Monocytes % 9.5 %; Neutrophils # 5.9 K/mcL (1.6-8.9); Platelet Count 192 K/mcL (140-400); Red Blood Count 4.62 M/mcL (4.19-5.50); Red Cell Distribution Width 15.1 % (11.5-14.5); Segmented Neutrophils % 55.2 %
[2016-12-27 04:51] LABS: Hemoglobin A1C 5.8 %
[2016-12-27 04:55] LABS: INR 1.2; Prothrombin Time 13.3 Seconds (9.4-12.1)
[2016-12-27 04:57] LABS: Activated Partial Thrombo Time 31.5 Seconds (26.0-36.0)
[2016-12-27 05:05] LABS: BUN/Creatinine Ratio 17 (6-26); Blood Urea Nitrogen 17 mg/dL (8-26); Calcium 9.4 mg/dL (8.6-10.8); Carbon Dioxide 27 mEq/L (19-29); Chloride 99 mEq/L (98-109); Chol/HDL Ratio 6.5 (0-4.9); Cholesterol 194 mg/dL (< 200); Glucose 104 mg/dL (70-99); HDL Cholesterol 30 mg/dL (40-59); LDL Cholesterol,Calculated 96 mg/dL (0-99); Magnesium 1.5 mg/dL (1.6-2.6); Osmolality,Calculated 280 (280-300); Potassium 3.7 mEq/L (3.5-4.5); Sodium 134 mEq/L (136-145); Triglycerides 342 mg/dL (< 150); eGFR For African Americans > 60 (> 60); eGFR For Non-African Americans > 60 (> 60)
[2016-12-27] MEDS: *HR* Heparin 5,000 UNIT/ML VIAL SQ SCH ×3 (06:10→22:45)
[2016-12-27] MEDS: Furosemide 40 MG/4 ML VIAL IVP SCH ×2 (08:08→17:06)
[2016-12-27] MEDS: Insulin LISPRO 300 UNITS/3 ML VIAL SQ SCH ×4 (08:08→22:47)
[2016-12-27] MEDS: Nicotine 21 MG PATCH.TD24 TD SCH (08:09)
[2016-12-27] MEDS: metOLazone 5 MG TABLET PO SCH (08:09)
[2016-12-27] MEDS: Pantoprazole 40 MG VIAL IVP SCH ×2 (08:09→22:45)
[2016-12-27] MEDS: Fenofibrate 54 MG TABLET PO SCH (08:10)
[2016-12-27] MEDS: FLUoxetine 20 MG CAPSULE PO SCH (08:10)
[2016-12-27] MEDS ORDERED: Magnesium Sulfate 2 GM in D5% in Water 100 ML IVPB ONE (10:03)
--- NOTE | 2016-12-27 13:38 | Internal Med Progress Note ---
Date of Encounter: 12/27/16 Time of Encounter: 13:34 - Assessment and plan (1) CAD (coronary artery disease) Current Visit: Yes Status: Acute Assessment and plan: per hx. Now with worsening shortness of breath and chest pressure. Serial troponins negative. EKG without acute ST changes. 06/2016 TTE with EF 60% and diastolic dysfunction. Reportedly had [facility] at [facility] earlier this year (obtain records from [facility]). Has significant risk factors including morbid obesity, hypertension, BECK. Repeat echo pending. Cardiology consulted for further recommendations. Continue home Coumadin, statin. Qualifiers: Qualified Code(s): I25.10 - Atherosclerotic heart disease of [place] coronary artery without angina pectoris (2) CHF (congestive heart failure) Current Visit: No Status: Chronic Assessment and plan: 06/2016 TTE with EF 60% and evidence of diastolic dysfunction. Now with worsening SOB and lower extremity edema. Chest x-ray with mild edema. On lasix 80 TID at home. Diuresis with IV Lasix for now. Repeat echo pending. Strict I and O's, daily weights. Cardiology consulted. Qualifiers: Congestive heart failure type: diastolic Congestive heart failure chronicity: acute on chronic Qualified Code(s): I50.33 - Acute on chronic diastolic (congestive) heart failure (3) Abnormal urinalysis Current Visit: Yes Status: Acute Assessment and plan: UA with leuk esterase and WBC. Initially placed on Levaquin however changed to Rocephin with resuming Coumadin due to interaction. Narrow according to urine culture. (4) Lumbar stenosis Current Visit: Yes Status: Acute Assessment and plan: Per history. Follows with pain management and has received multiple cortisone shots. Now with worsening and severe lower back pain. Initially concern for possible pyelonephritis/renal etiology as cause of back pain however renal ultrasound and ABD CT unremarkable. Suspect this is acute on chronic lower back pain. Continue home regimen, add when necessary IV morphine. Will need cautious pain management as he is morbidly obese at risk for hypoventilation. Pain management consult for further recommendations (5) Afib Current Visit: Yes Status: Chronic Assessment and plan: Per history. Rate controlled however not on rate control agent for unknown reasons. Coumadin held for outpatient procedure which was canceled due to admission. Remains rate controlled at this time. Resume Coumadin, monitor on telemetry. INR 1.2, give one-time dose therapeutic Lovenox now. Qualifiers: Atrial fibrillation type: paroxysmal Qualified Code(s): I48.0 - Paroxysmal atrial fibrillation (6) Morbid obesity with BMI of 60.0-69.9, adult Current Visit: No Status: Chronic Assessment and plan: Weight is likely contributing to increased pain. Discussed with patient at length regarding weight loss. Lifestyle recommendations encouraged. (7) BECK (obstructive sleep apnea) Current Visit: Yes Status: Acute Assessment and plan: per hx. Cont CPAP (8) DVT prophylaxis Current Visit: Yes Status: Acute Assessment and plan: coumadin - Time Spent With Patient Greater than 35 minutes - Subjective Interval history: Seen and examined at bedside. Patient is new to me, information obtained from chart review and patient report. He is still c/o severe "kidney pain". Pain is sharp, constant, worse with palpation. Discussed with patient at length results of renal ultrasound and ABD CT and that kidneys are likely not the source of this pain most likely his lumbar stenosis. Also with chest pressure and worsening shortness of breath. Patient says he was able to walk around his house without getting short of breath a month ago and now has to stop after taking a couple steps. Says he had heart catheter at [facility] this year. A 10 point review of system was obtained and negative unless otherwise noted above - Constitutional Vitals: Temp Pulse Resp BP Pulse Ox 98.0 F 72 18 121/75 95 12/27/16 11:07 12/27/16 11:07 12/27/16 11:23 12/27/16 11:07 12/27/16 11:23 General appearance: Present: cooperative, mild distress, A&O X 3, morbidly obese , pleasant, severe distress (Back/flank pain), answers questions appropriately - Head Head exam: Present: atraumatic, normocephalic - Eye Eye exam: Present: PERRL, conjuntiva pink, sclera anicteric Pupils: Present: PERRL - Neck Neck exam general surgery: Present: supple, trachea midline. Absent: lymphadenopathy - Respiratory Respiratory exam: Present: CTAB. Absent: accessory muscle use, rales, rhonchi, wheezes - Cardiovascular Cardiovascular exam: Present: RRR, +S1, +S2. Absent: diastolic murmur, gallop, rubs, systolic murmur - GI/Abdominal GI/Abdominal exam: Present: normal bowel sounds, soft, no peritoneal signs. Absent: distended, tenderness - Extremities Exam Extremities exam: Present: pedal edema, warm, radial pulses palpable and symmetrical. Absent: calf tenderness, cyanotic - Neurological Exam Neurological exam: Present: CN II-XII intact, oriented X3, no focal deficits. Absent: pronater drift, facial droop, speech deficit - Skin Skin exam: Present: dry, intact Internal Medicine: Result - Labs CBC & Chem 7: 12/27/16 04:04 12/27/16 04:04 Labs: Short CBC 12/27/16 Range/Units 04:04 WBC 10.7 (4.3-11.1) K/mcL Hgb 12.9 (12.9-16.9) g/dL Hct 41.8 (37.5-50.1) % Plt Count 192 (140-400) K/mcL Neutrophils # 5.9 (1.6-8.9) K/mcL BMP 12/27/16 04:04 Sodium 134 L Potassium 3.7 Chloride 99 Carbon Dioxide 27 BUN 17 Creatinine 1.03 Glucose 104 H Calcium 9.4 Cardiac Enzymes 12/26/16 12/26/16 Range/Units 17:14 23:07 Troponin I 0.00 0.00 (0-0.03) ng/mL - ABG Interpretation ABG results: PT/INR, D-dimer PT 13.3 Seconds (9.4-12.1) H 12/27/16 04:04 - Impressions Impressions Retroperitoneum Ultrasound 12/26/16 19:30 IMPRESSION: No hydronephrosis or hydroureter. No acute abnormality detected. D/ / Deuce Tai MD / Deuce Tai MD Interpreting Provider: Deuce Tai MD Consult Discharge Plan - Plan Referrals: Fartun Quinones, EMERGENCY ROOM ORDERLY [Primary Care Provider] -
--- NOTE | 2016-12-27 14:52 | Pain Management History & Phys ---
Date of Encounter: 12/27/16 Time of Encounter: 14:48 Assessment and Plan (1) Pyelonephritis Current Visit: No Status: Acute The assessment and plan as outlined above was discussed with the patient and/or family members who expressed understanding and agreement. All questions were answered. The patient has normal / usual LBP pain but acute on chronic back pain is present and related to the infection of the tract. I recommend that the patient be placed on baseline percocet 7.5/325 QID prn, but make available intermittent IVP morphine as he gets some relief from this. The current dose appears to be effective. 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 Will f/u with the patient as an outpt to continue outpt care following discharge. (2) UTI (urinary tract infection) Current Visit: Yes Status: Suspected The assessment and plan as outlined above was discussed with the patient and/or family members who expressed understanding and agreement. All questions were answered. Qualifiers: Urinary tract infection type: site unspecified Hematuria presence: without hematuria Qualified Code(s): N39.0 - Urinary tract infection, site not specified (3) DDD (degenerative disc disease), lumbar Current Visit: Yes Status: Chronic The assessment and plan as outlined above was discussed with the patient and/or family members who expressed understanding and agreement. All questions were answered. History of Present Illness Chief complaint: Low back pain HPI: Mr. Davila is a 61 year old male presented to [facility] on 12/26/2016 for injection. Upon initial encounter, the patient appeared unwell. The procedure was cancelled and the patient was sent to the ED and ED given sign out. The patient was admitted to 3b. Call today from IM team requesting options for back pain. Patient complains of high back pain in the flanks bilaterally. Patient states achy. Patient states associated with nausea. The patient reports occasional sweats that began on 12/26. No weakness. + chills + malaise. No other complaints. Past Med Surg Social Fam HX - Past Medical History Medical history: asthma, atrial fibrillation, CHF, COPD, diabetes, myocardial infarction, peripheral artery disease, thyroid disease, other Psychiatric history: no psych history - Past Surgical History Surgical History: angioplasty/stent, orthopedic, other - Social History Smoking Status: Current every day smoker Packs per day: 1 PPD Smokeless Tobacco Status: No Alcohol use: rarely Drug use: none - Family History Mother Race: Family Member Ethnicity: Non- Living Status: Age at : 72 Cause of : Non-alcoholic cirrhosis Hx Family Cardiac Disorders: No Hx Family Respiratory Disorders: No Father Race: Family Member Ethnicity: Non- Living Status: Age at : 78 Cause of : Pancreatic cancer Hx Family Cardiac Disorders: No Hx Family Respiratory Disorders: No Hx Family Cancer: Yes (Pancreatic) Hx Family Genitourinary Disorders: Yes (Kidney stones) Brother Race: Family Member Ethnicity: Non- Living Status: Still Living Hx Family Cardiac Disorders: Yes (HD, Pacemaker) Sister History Unknown: Yes Race: Family Member Ethnicity: Non- Living Status: Still Living Medications and Allergies Albuterol Sulfate [Albuterol Inhaler] 2 puff IH Q4H PRN 08/04/16 [History] Docusate Sodium [Stool Softener] 100 mg PO BID PRN 08/04/16 [History] FLUoxetine HCl [Prozac] 20 mg PO DAILY 08/04/16 [History] Fenofibrate Nanocrystallized [Tricor] 48 mg PO DAILY 08/04/16 [History] Furosemide [Lasix] 80 mg PO TID 08/04/16 [History] Gabapentin [Neurontin] 600 mg PO TID PRN 08/04/16 [History] LORazepam [Ativan] 0.5 mg PO DAILY PRN 08/04/16 [History] Meloxicam [Mobic] 15 mg PO DAILY 08/04/16 [History] Metformin HCl [Glucophage] 1,000 mg PO BID 08/04/16 [History] Nitroglycerin [Nitrostat] 0.4 mg SL Q5M PRN 08/04/16 [History] Omeprazole [PriLOSEC] 20 mg PO BIDAC 08/04/16 [History] Oxycodone HCl/Acetaminophen [Percocet 7.5-325 mg Tablet] 1 each PO Q6H PRN 08/04 [History] Pentoxifylline [TRENtal] 400 mg PO BID 08/04/16 [History] Potassium Chloride [K-Tab ER] 20 meq PO DAILY 08/04/16 [History] Pravastatin Sodium [Pravachol] 40 mg PO HS 08/04/16 [History] Spironolactone [Aldactone] 50 mg PO BID 08/04/16 [History] Levothyroxine Sodium [Synthroid] 200 mcg PO DAILY 12/26/16 [History] 3 Allergy/AdvReac Type Severity Reaction Status Date / Time Amoxicillin [From Augmentin] Allergy Palpitation Verified 08/04/16 13:05 s clavulanic acid Allergy Palpitation Verified 08/04/16 13:05 [From Augmentin] s meperidine [From Demerol] Allergy Palpitation Verified 08/04/16 13:05 s sulfamethoxazole Allergy Rash Verified 08/04/16 13:05 [From Bactrim] trimethoprim [From Bactrim] Allergy Rash Verified 08/04/16 13:05 Review of Systems - Constitutional Constitutional ROS IM: as per HPI - Cardiovascular Cardiovascular ROS: no chest pain, no leg edema, no lightheadedness - Respiratory Respiratory: as per HPI (SOB) - Gastrointestinal Gastrointestinal: as per HPI (nausea) - Genitourinary Genitourinary ROS: flank pain - Musculoskeletal Musculoskeletal ROS: as per HPI (back pain) - Integumentary Integumentary: no erythema, no lesions, no swelling - Neurological Neurological ROS: abnormal gait - Psychiatric Psychiatric general: no anxiety, no confusion, no depression - Hematologic/Lymphatic Hematologic/Lymphatic pediatric: no easy bleeding, no easy bruising Physical Exam Initial Vital Signs Temp Pulse Resp BP Pulse Ox 97.8 F 73 22 145/97 96 12/26/16 10:02 12/26/16 10:02 12/26/16 10:02 12/26/16 10:02 12/26/16 10:02 - General physical appearance General physical appearance: awake & oriented, no distress, moderate pain, severe pain - Eyes Eye exam: normal ocular movement - Respiratory normal respiratory effort - Cardiovascular Cardiovascular exam: Present: RRR - Abdomen Abdomen: soft - Neurologic normal coordination - Musculoskeletal Musculoskeletal: other (CVA tenderness to percussion bilaterally) - Psychiatric Psychiatric: oriented to time, oriented to person, oriented to place Results - Labs 12/27/16 04:04 12/27/16 04:04 Abnormal lab results MCH 27.9 pg (28.0-33.3) L 12/27/16 04:04 MCHC 30.9 g/dL (31.6-35.5) L 12/27/16 04:04 RDW 15.1 % (11.5-14.5) H 12/27/16 04:04 Immature Plt Fraction 7.1 % (1.1-6.1) H 12/26/16 10:47 PT 13.3 Seconds (9.4-12.1) H 12/27/16 04:04 Sodium 134 mEq/L (136-145) L 12/27/16 04:04 Glucose 104 mg/dL (70-99) H 12/27/16 04:04 POC Glucose 117 (58-89) H 12/26/16 15:15 Hemoglobin A1c 5.8 % (-5.6) H 12/27/16 04:04 Magnesium 1.5 mg/dL (1.6-2.6) L 12/27/16 04:04 Globulin 3.6 g/dL (2.4-3.5) H 12/26/16 10:52 Albumin/Globulin Ratio 1.0 (1.1-2.2) L 12/26/16 10:52 Triglycerides 342 mg/dL (< 150) H 12/27/16 04:04 VLDL Cholesterol, Calc 68 mg/dL (< 31) H 12/27/16 04:04 HDL Cholesterol 30 mg/dL (40-59) L 12/27/16 04:04 Cholesterol/HDL Ratio 6.5 (0-4.9) H 12/27/16 04:04 Ur Specific Bow > 1.030 (1.010-1.025) H 12/26/16 14:27 Urine Protein 30 mg/dL (Neg-Trace) H 12/26/16 14:27 Urine Bilirubin Small (Negative) H 12/26/16 14:27 Ur Leukocyte Esterase Trace (Negative) H 12/26/16 14:27 Urine Microscopic RBC 3-5 per hpf (0-3) H 12/26/16 14:27 Urine Microscopic WBC 5-15 per hpf (0-3) H 12/26/16 14:27 Ur Squamous Epith Cells Many per lpf (None-Few) H 12/26/16 14:27 Hyaline Casts Moderate per lpf (None-Few) H 12/26/16 14:27 Ur Culture Indicated? YES (NO) A 12/26/16 14:27 Diabetes panel 12/27/16 12/27/16 Range/Units 04:04 04:04 Sodium 134 L (136-145) mEq/L Potassium 3.7 (3.5-4.5) mEq/L Chloride 99 (98-109) mEq/L Carbon Dioxide 27 (19-29) mEq/L BUN 17 (8-26) mg/dL Creatinine 1.03 (0.72-1.25) mg/dL Glucose 104 H (70-99) mg/dL Hemoglobin A1c 5.8 H ( - 5.6) % Calcium 9.4 (8.6-10.8) mg/dL Triglycerides 342 H (< 150) mg/dL HDL Cholesterol 30 L (40-59) mg/dL Calcium panel 12/27/16 Range/Units 04:04 Calcium 9.4 (8.6-10.8) mg/dL Pituitary panel 12/27/16 Range/Units 04:04 Sodium 134 L (136-145) mEq/L Potassium 3.7 (3.5-4.5) mEq/L Chloride 99 (98-109) mEq/L Carbon Dioxide 27 (19-29) mEq/L BUN 17 (8-26) mg/dL Creatinine 1.03 (0.72-1.25) mg/dL Glucose 104 H (70-99) mg/dL Calcium 9.4 (8.6-10.8) mg/dL Adrenal panel 12/27/16 Range/Units 04:04 Sodium 134 L (136-145) mEq/L Potassium 3.7 (3.5-4.5) mEq/L Chloride 99 (98-109) mEq/L Carbon Dioxide 27 (19-29) mEq/L BUN 17 (8-26) mg/dL Creatinine 1.03 (0.72-1.25) mg/dL Glucose 104 H (70-99) mg/dL Calcium 9.4 (8.6-10.8) mg/dL All other labs normal. - Imaging CT scan - abdomen: report reviewed CT scan - pelvis: report reviewed US - kidney/bladder: report reviewed
[2016-12-27] MEDS ORDERED: *HR* Enoxaparin 100 MG/ML SYRINGE SQ STA (15:24)
[2016-12-27] MEDS ORDERED: Perflutren Lipid Microsphere 1.3 ML in 0.9 % Sodium Chloride 8.7 ML IVP ONE (16:30)
[2016-12-27] MEDS: *HR* Warfarin 10 MG TABLET PO SCH (17:06)
[2016-12-27] MEDS ORDERED: Warfarin perPT PO PRN (18:00)
[2016-12-28] MEDS: Ipratropium/Albuterol Neb 3 ML IH SCH ×7 (00:53→23:05)
[2016-12-28 04:06] LABS: Hematocrit 43.1 % (37.5-50.1); Hemoglobin 13.6 g/dL (12.9-16.9); Mean Corpuscular HGB Conc 31.6 g/dL (31.6-35.5); Mean Corpuscular Hemoglobin 28.2 pg (28.0-33.3); Mean Corpuscular Volume 89.4 fL (83.0-100.0); Mean Platelet Volume 10.9 fL (9.4-12.4); Platelet Count 193 K/mcL (140-400); Red Blood Count 4.82 M/mcL (4.19-5.50); Red Cell Distribution Width 14.9 % (11.5-14.5)
[2016-12-28] MEDS: *HR* Morphine 2 MG/ML SYRINGE IVP PRN ×4 (04:10→18:10)
[2016-12-28 04:20] LABS: INR 1.2; Prothrombin Time 12.5 Seconds (9.4-12.1)
[2016-12-28] MEDS: *HR* Heparin 5,000 UNIT/ML VIAL SQ SCH ×3 (05:39→21:05)
[2016-12-28] MEDS: Insulin LISPRO 300 UNITS/3 ML VIAL SQ SCH ×4 (09:16→21:01)
[2016-12-28] MEDS: FLUoxetine 20 MG CAPSULE PO SCH (09:17)
[2016-12-28] MEDS: Furosemide 40 MG/4 ML VIAL IVP SCH ×2 (09:17→18:07)
[2016-12-28] MEDS: Pantoprazole 40 MG VIAL IVP SCH ×2 (09:17→21:05)
[2016-12-28] MEDS: Nicotine 21 MG PATCH.TD24 TD SCH (09:18)
[2016-12-28] MEDS: metOLazone 5 MG TABLET PO SCH (09:18)
[2016-12-28] MEDS: Fenofibrate 54 MG TABLET PO SCH (09:18)
[2016-12-28 10:21] LABS: Alanine Aminotransferase 14 Units/L (0-55); Albumin/Globulin Ratio 0.9 (1.1-2.2); Alkaline Phosphatase 53 Units/L (38-126); Aspartate Amino Transferase 19 Units/L (5-34); BUN/Creatinine Ratio 15 (6-26); Bilirubin,Total 0.7 mg/dL (0.2-1.2); Blood Urea Nitrogen 19 mg/dL (8-26); Calcium 10.4 mg/dL (8.6-10.8); Carbon Dioxide 26 mEq/L (19-29); Chloride 96 mEq/L (98-109); Globulin 4.3 g/dL (2.4-3.5); Glucose 171 mg/dL (70-99); Osmolality,Calculated 286 (280-300); Sodium 135 mEq/L (136-145); Total Protein 8.3 g/dL (6.0-8.3); eGFR For African Americans > 60 (> 60); eGFR For Non-African Americans 56 (> 60)
[2016-12-28] MEDS: *HR* Warfarin 10 MG TABLET PO SCH (18:07)
--- NOTE | 2016-12-28 23:40 | Internal Med Progress Note ---
Date of Encounter: 12/28/16 Time of Encounter: 14:00 - Assessment and plan (1) Abdominal pain Current Visit: No Status: Acute Qualifiers: Abdominal location: upper abdomen, unspecified Qualified Code(s): R10.10 - Upper abdominal pain, unspecified (2) Pyelonephritis Current Visit: No Status: Suspected Assessment and plan: Continue Rocephin (3) CHF (congestive heart failure) Current Visit: No Status: Chronic Qualifiers: Congestive heart failure type: diastolic Congestive heart failure chronicity: acute on chronic Qualified Code(s): I50.33 - Acute on chronic diastolic (congestive) heart failure (4) Afib Current Visit: Yes Status: Chronic Qualifiers: Atrial fibrillation type: paroxysmal Qualified Code(s): I48.0 - Paroxysmal atrial fibrillation (5) Diastolic heart failure Current Visit: No Status: Chronic Assessment and plan: with fluid overload. Currently being dieuresed with Lasix, metolazine, Aldactone. Qualifiers: Heart failure chronicity: chronic Qualified Code(s): I50.32 - Chronic diastolic (congestive) heart failure (6) Chronic respiratory failure with hypoxia Current Visit: No Status: Chronic Assessment and plan: Continue current medical management, continue CPAP for BECK, discussed weight as contribution. (7) COPD with acute exacerbation Current Visit: Yes Status: Acute (8) Shortness of breath Current Visit: Yes Status: Acute Assessment and plan: Near baseline (9) Acute exacerbation of CHF (congestive heart failure) Current Visit: Yes Status: Acute Qualifiers: Congestive heart failure type: diastolic Qualified Code(s): I50.33 - Acute on chronic diastolic (congestive) heart failure - Subjective Interval history: Mostly bothered by right sided abdominal/flank pain. Denies CP/SOB that is worse than his baseline. - Constitutional Vitals: Temp Pulse Resp BP Pulse Ox 98.3 F 106 20 138/85 93 12/28/16 23:03 12/28/16 23:03 12/28/16 23:03 12/28/16 23:03 12/28/16 23:03 General appearance: Present: cooperative, mild distress, A&O X 3, morbidly obese , pleasant, severe distress (Back/flank pain), answers questions appropriately - Respiratory Respiratory exam: Present: decreased breath sounds, rhonchi, wheezes - Cardiovascular Cardiovascular exam: Present: +S1, +S2. Absent: bradycardia, clicks, irregular rhythm, JVD, tachycardia - Extremities Exam Extremities exam: Present: cyanotic, pedal edema Internal Medicine: Result - Labs CBC & Chem 7: 12/28/16 03:52 12/28/16 09:54 Labs: Short CBC 12/28/16 Range/Units 03:52 WBC 10.7 (4.3-11.1) K/mcL Hgb 13.6 (12.9-16.9) g/dL Hct 43.1 (37.5-50.1) % Plt Count 193 (140-400) K/mcL BMP 12/28/16 09:54 Sodium 135 L Potassium 4.0 Chloride 96 L Carbon Dioxide 26 BUN 19 Creatinine 1.30 H Glucose 171 H Calcium 10.4 Liver Function 12/28/16 Range/Units 09:54 Total Bilirubin 0.7 (0.2-1.2) mg/dL AST 19 (5-34) Units/L ALT 14 (0-55) Units/L Alkaline Phosphatase 53 (38-126) Units/L Albumin 4.0 (3.5-5.0) g/dL - ABG Interpretation ABG results: PT/INR, D-dimer PT 12.5 Seconds (9.4-12.1) H 12/28/16 03:52 Consult Discharge Plan - Plan Referrals: Fartun Quinones, CLOTH SHEARING SUPERVISOR [Primary Care Provider] -
[2016-12-29] MEDS: Ipratropium/Albuterol Neb 3 ML IH SCH ×6 (04:30→23:58)
[2016-12-29] MEDS: Ondansetron 4 MG/2 ML VIAL IVP PRN (04:39)
[2016-12-29] MEDS: *HR* Heparin 5,000 UNIT/ML VIAL SQ SCH ×3 (04:40→21:53)
[2016-12-29 05:53] LABS: Hematocrit 43.9 % (37.5-50.1); Hemoglobin 14.4 g/dL (12.9-16.9); Mean Corpuscular HGB Conc 32.8 g/dL (31.6-35.5); Mean Corpuscular Hemoglobin 29.1 pg (28.0-33.3); Mean Corpuscular Volume 88.9 fL (83.0-100.0); Mean Platelet Volume 11.4 fL (9.4-12.4); Platelet Count 211 K/mcL (140-400); Red Blood Count 4.94 M/mcL (4.19-5.50)
[2016-12-29 06:01] LABS: INR 1.1; Prothrombin Time 12.1 Seconds (9.4-12.1)
[2016-12-29] MEDS: Pantoprazole 40 MG VIAL IVP SCH ×2 (09:17→21:53)
[2016-12-29] MEDS: Insulin LISPRO 300 UNITS/3 ML VIAL SQ SCH ×4 (09:17→21:35)
[2016-12-29] MEDS: Furosemide 40 MG/4 ML VIAL IVP SCH ×2 (09:18→17:56)
[2016-12-29] MEDS: metOLazone 5 MG TABLET PO SCH (09:18)
[2016-12-29] MEDS: FLUoxetine 20 MG CAPSULE PO SCH (09:18)
[2016-12-29] MEDS: Nicotine 21 MG PATCH.TD24 TD SCH (09:19)
[2016-12-29] MEDS: Fenofibrate 54 MG TABLET PO SCH (09:19)
[2016-12-29] MEDS: *HR* Morphine 2 MG/ML SYRINGE IVP PRN ×4 (09:20→21:54)
[2016-12-29 09:59] LABS: Albumin/Globulin Ratio 0.9 (1.1-2.2); Bilirubin,Total 0.5 mg/dL (0.2-1.2); Calcium 10.4 mg/dL (8.6-10.8); Globulin 4.5 g/dL (2.4-3.5); Total Protein 8.5 g/dL (6.0-8.3)
[2016-12-29 10:06] LABS: Potassium 3.9 mEq/L (3.5-4.5)
[2016-12-29] MEDS: *HR* LORazepam 0.5 MG TABLET PO PRN (12:29)
[2016-12-29] MEDS ORDERED: Aspirin 325 MG TABLET PO ONE (13:42)
[2016-12-29 14:28] LABS: Basophils # 0.1 K/mcL (0.0-0.2); Basophils % 0.5 %; Eosinophils # 0.2 K/mcL (0.0-0.6); Eosinophils % 1.6 %; Hematocrit 45.2 % (37.5-50.1); Immature Granulocytes % 0.3 % (0-4); Lymphocytes # 3.4 K/mcL (0.6-4.6); Lymphocytes % 28.7 %; Mean Corpuscular HGB Conc 33.2 g/dL (31.6-35.5); Mean Corpuscular Volume 87.3 fL (83.0-100.0); Mean Platelet Volume 11.4 fL (9.4-12.4); Monocytes # 1.2 K/mcL (0.0-1.3); Monocytes % 9.8 %; Neutrophils # 7.1 K/mcL (1.6-8.9); Platelet Count 241 K/mcL (140-400); Red Blood Count 5.18 M/mcL (4.19-5.50); Red Cell Distribution Width 14.7 % (11.5-14.5); Segmented Neutrophils % 59.1 %
[2016-12-29 14:40] LABS: Albumin/Globulin Ratio 0.9 (1.1-2.2); Bilirubin,Total 0.6 mg/dL (0.2-1.2); Calcium 10.7 mg/dL (8.6-10.8); Globulin 4.4 g/dL (2.4-3.5); Magnesium 1.9 mg/dL (1.6-2.6); Potassium 3.7 mEq/L (3.5-4.5); Total Protein 8.4 g/dL (6.0-8.3)
[2016-12-29 15:01] LABS: Thyroid Stimulating Hormone 0.824 mcIU/mL (0.350-4.840)
[2016-12-29] MEDS ORDERED: *HR* Warfarin 3 MG TABLET PO ONE (18:00)
[2016-12-29 20:06] LABS: Creatinine,Urine 98 mg/dL; Microalbum/Creatinine Ratio,Ur 15 (0-30); Microalbumin,Urine 15 mg/L; Protein/Creatinine Ratio,Urine 0.07 mg/mg (0-0.20)
[2016-12-30] MEDS: *HR* Morphine 2 MG/ML SYRINGE IVP PRN ×4 (03:57→21:38)
[2016-12-30] MEDS: Ipratropium/Albuterol Neb 3 ML IH SCH ×6 (04:29→23:58)
[2016-12-30 04:35] LABS: Hematocrit 45.3 % (37.5-50.1); Hemoglobin 14.2 g/dL (12.9-16.9); Mean Corpuscular HGB Conc 31.3 g/dL (31.6-35.5); Mean Corpuscular Hemoglobin 27.7 pg (28.0-33.3); Mean Corpuscular Volume 88.5 fL (83.0-100.0); Mean Platelet Volume 11.1 fL (9.4-12.4); Platelet Count 217 K/mcL (140-400); Red Blood Count 5.12 M/mcL (4.19-5.50); Red Cell Distribution Width 14.7 % (11.5-14.5)
[2016-12-30 04:38] LABS: INR 1.2; Prothrombin Time 12.5 Seconds (9.4-12.1)
[2016-12-30] MEDS: *HR* Heparin 5,000 UNIT/ML VIAL SQ SCH ×3 (05:46→21:06)
--- NOTE | 2016-12-30 08:24 | Nephrology Consult Note ---
Date of Encounter: 12/30/16 Time of Encounter: 08:21 Assessment and Plan (1) PRICE (acute kidney injury) Status: Acute Most likely multifactorial: infection, and extremely high doses of diuretics ( lasix 120mg IV BID, Spironolactone and Metolazone 10mg daily). He needs better I/Os since there is only 400-500 list the last few days and this most likely is not accurate. Needs strict daily weights. Needs labs for today: pending CMP. Further recs to follow. His BNP was <100, so this rules out CHF, and therefore he does not need such high doses of diuretics. His shortness of breath work-up should not be considered a fluid problem today at least. I'll defer his dyspnea work up to the primary team. I will hold his lasix for today because he is developing a contraction alkalosis and PRICE from the very high dosing that does not appear indicated based upon the BNP. Avoid any nephrotoxins such as Bactrim, Contrast, metformin, NSAIDs. I'll also hold the fenofibrate, which impairs the renal excretion of Cr and therefore could contribute chronically to a mild increase in SCr. Will follow with you. Thank you for consulting the [facility] group. (2) NSAID long-term use Status: Acute I've stopped the NSAID medication Mobic that was still active despite his worsening PRICE (for patient safety). (3) Pyelonephritis Status: Suspected As per primary History of Present Illness - Reason for Consult Consult date: 12/30/16 Acute Kidney Injury Requesting physician: Genet Rodriguez - Chief Complaint PRICE - History of Present Illness 61 y/o super morbidly obese WM with a pmh of asthma, atrial fibrillation, DM with insulin dependency, previous myocardial infarction, PAD, thyroid disease, sleep apnea, Graves' disease, chronic pain on NSAIDs, chronic high dose diuretics and et al who presented with UTI and was noted to have developed an PRICE. Nephrology was consulted. Pt was taking NSAIDs and very high doses of IV diuretics for presumed Acute diastolic CHF and his SCr started to rise. His BNP was <100 however. 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 When asked why he takes as an outpatient such high doses of oral diuretics, he was not sure. He affirmed having a hx of renal stones, but no recent gout. He denied having a FHx of ESRD. He affirmed having chronic shortness of breath but it's about the same as usual, no new CP, F/C. He affirmed dysuria on and off for several weeks. He said he has low back pains on both sides. He was going to have a pain pump placed recently but it was postponed. Past Med Surg Social Fam HX - Past Medical History Medical history: asthma, atrial fibrillation, CHF, COPD, diabetes, myocardial infarction, peripheral artery disease, thyroid disease, other Psychiatric history: no psych history - Past Surgical History Surgical History: angioplasty/stent, orthopedic, other - Social History Smoking Status: Current every day smoker Packs per day: 1 PPD Smokeless Tobacco Status: No Alcohol use: rarely Drug use: none - Family History Mother Race: Family Member Ethnicity: Non- Living Status: Age at : 72 Cause of : Non-alcoholic cirrhosis Hx Family Cardiac Disorders: No Hx Family Respiratory Disorders: No Father Race: Family Member Ethnicity: Non- Living Status: Age at : 78 Cause of : Pancreatic cancer Hx Family Cardiac Disorders: No Hx Family Respiratory Disorders: No Hx Family Cancer: Yes (Pancreatic) Hx Family Genitourinary Disorders: Yes (Kidney stones) Brother Race: Family Member Ethnicity: Non- Living Status: Still Living Hx Family Cardiac Disorders: Yes (HD, Pacemaker) Sister History Unknown: Yes Race: Family Member Ethnicity: Non- Living Status: Still Living Medications and Allergies Albuterol Sulfate [Albuterol Inhaler] 2 puff IH Q4H PRN 08/04/16 [History] Docusate Sodium [Stool Softener] 100 mg PO BID PRN 08/04/16 [History] FLUoxetine HCl [Prozac] 20 mg PO DAILY 08/04/16 [History] Fenofibrate Nanocrystallized [Tricor] 48 mg PO DAILY 08/04/16 [History] Gabapentin [Neurontin] 600 mg PO TID PRN 08/04/16 [History] LORazepam [Ativan] 0.5 mg PO DAILY PRN 08/04/16 [History] Metformin HCl [Glucophage] 1,000 mg PO BID 08/04/16 [History] Nitroglycerin [Nitrostat] 0.4 mg SL Q5M PRN 08/04/16 [History] Omeprazole [PriLOSEC] 20 mg PO BIDAC 08/04/16 [History] Oxycodone HCl/Acetaminophen [Percocet 7.5-325 mg Tablet] 1 each PO Q6H PRN 08/04 [History] Pentoxifylline [TRENtal] 400 mg PO BID 08/04/16 [History] Potassium Chloride [K-Tab ER] 20 meq PO DAILY 08/04/16 [History] Pravastatin Sodium [Pravachol] 40 mg PO HS 08/04/16 [History] Levothyroxine Sodium [Synthroid] 200 mcg PO DAILY 12/26/16 [History] Carvedilol [Coreg] 6.25 mg PO BIDWM #60 tab 01/01/17 [Rx] Furosemide [Lasix] 40 mg PO BID #60 tab 01/01/17 [Rx] Warfarin perPT [Coumadin perPT] 10 mg PO 1800 #30 tablet 01/01/17 [Rx] 3 Allergy/AdvReac Type Severity Reaction Status Date / Time Amoxicillin [From Augmentin] Allergy Palpitation Verified 08/04/16 13:05 s clavulanic acid Allergy Palpitation Verified 08/04/16 13:05 [From Augmentin] s meperidine [From Demerol] Allergy Palpitation Verified 08/04/16 13:05 s sulfamethoxazole Allergy Rash Verified 08/04/16 13:05 [From Bactrim] trimethoprim [From Bactrim] Allergy Rash Verified 08/04/16 13:05 Review of Systems All Systems: reviewed and no additional remarkable complaints except as stated Exam - Vital Signs Vital signs: Initial Vital Signs Temp Pulse Resp BP Pulse Ox 97.8 F 73 22 145/97 96 12/26/16 10:02 12/26/16 10:02 12/26/16 10:02 12/26/16 10:02 12/26/16 10:02 Vital Signs - Last 8 Hours Temp Pulse Resp BP Pulse Ox 12/30/16 08:17 18 98 12/30/16 07:15 97.6 F 83 17 113/80 95 12/30/16 04:29 18 93 12/30/16 03:27 97.7 F 84 18 132/73 94 Intake and Output 12/29/16 12/30/16 12/30/16 23:59 07:59 15:59 Intake Total 200 / 200 250 / 250 Output Total 250 / 250 400 / 400 Balance -50 / -50 -150 / -150 Intake: Oral 200 / 200 250 / 250 Output: Urine 250 / 250 400 / 400 Other: Weight 164.291 kg Blood Glucose* 139 134 Patient Weight 12/30/16 23:59 Weight 164.291 kg - General Appearance General appearance: well-developed, well-nourished, appears started age, obese, chronically ill EENT: ATNC, PERRL, mucous membranes moist Neck: supple Respiratory: clear Cardiology: edema (only trace bilateral pedeal non pitting (consistent with adiposity)), regular rate, regular rhythm, normal S1, normal S2 Gastrointestinal: normoactive bowel sounds, no tenderness, no guarding, obese ( very obese abd) Integumentary: no rash, warm and dry Neurologic: no focal deficit, no asterixis, alert and oriented x3 Musculoskeletal: no erythema, no cyanosis, no clubbing Psychiatric: mood/affect appropriate, cooperative Results - Lab Results 01/01/17 05:36 01/01/17 09:36 Most recent lab results Calcium 10.7 mg/dL (8.6-10.8) 12/29/16 14:18 Magnesium 1.9 mg/dL (1.6-2.6) 12/29/16 14:18 Urine Creatinine 98 mg/dL 12/29/16 19:42 Urine Total Protein < 7 mg/dL (1-14) 12/29/16 19:42 I reviewed the above data alberts, progress notes, labs, vitals, imaging, and medicine list Consult Discharge Plan - Plan Instructions: Chronic Obstructive Pulmonary Disease (DC) Additional Instructions: Please follow up with Coumadin clinic as early as possible Referrals: Fartun Quinones CNP [Primary Care Provider] - 01/07/17 10:15 am (in 1 week) Zackery Esparza DO [Partnered Physician] - (within 1 week. Office to contact patient at home to schedule appointment. ) Prescriptions: Carvedilol [Coreg] 6.25 mg PO BIDWM #60 tab Furosemide [Lasix] 40 mg PO BID #60 tab Warfarin perPT [Coumadin perPT] 10 mg PO 1800 #30 tablet
[2016-12-30] MEDS: Insulin LISPRO 300 UNITS/3 ML VIAL SQ SCH ×4 (09:03→21:07)
[2016-12-30] MEDS: Nicotine 21 MG PATCH.TD24 TD SCH (09:07)
[2016-12-30] MEDS: Furosemide 40 MG/4 ML VIAL IVP SCH (09:07)
[2016-12-30] MEDS: Pantoprazole 40 MG VIAL IVP SCH (09:07)
[2016-12-30] MEDS: metOLazone 5 MG TABLET PO SCH (09:08)
[2016-12-30] MEDS: *HR* LORazepam 0.5 MG TABLET PO PRN (09:09)
[2016-12-30] MEDS: FLUoxetine 20 MG CAPSULE PO SCH (09:09)
[2016-12-30] MEDS: Fenofibrate 54 MG TABLET PO SCH (09:09)
[2016-12-30 11:08] LABS: Albumin 3.8 g/dL (3.5-5.0); Albumin/Globulin Ratio 0.9 (1.1-2.2); Bilirubin,Total 0.5 mg/dL (0.2-1.2); Calcium 10.2 mg/dL (8.6-10.8); Globulin 4.3 g/dL (2.4-3.5); Potassium 3.2 mEq/L (3.5-4.5); Total Protein 8.1 g/dL (6.0-8.3)
--- NOTE | 2016-12-30 13:55 | Cardiology Consult Note ---
Date of Encounter: 12/30/16 Time of Encounter: 11:00 Assessment and Plan (1) SVT (supraventricular tachycardia) Current Visit: Yes Status: Acute -For improved treatment of SVT, will increase Carvedilol 3.125mg to 6.25mg BID (2) Afib Current Visit: Yes Status: Chronic -h/o paroxysmal Afib. Was off coumadin x1 week prior to admission for a procedure with pain management. -anticoagulating with heparin -does not take medication for control rate for unknown reason. Qualifiers: Atrial fibrillation type: paroxysmal Qualified Code(s): I48.0 - Paroxysmal atrial fibrillation (3) Diastolic heart failure Current Visit: No Status: Chronic Qualifiers: Heart failure chronicity: chronic Qualified Code(s): I50.32 - Chronic diastolic (congestive) heart failure Discussion w patient/family: The assessment and plan as outlined above was discussed with the patient and/or family members who expressed understanding and agreement. All questions were answered. Thank you for involving us in the care of your patient. Please call with any questions. History of Present Illness Consult date: 12/30/16 Consult reason: h/o CHF and atrial fibrillation Chief complaint: respiratory distress History of present illness: Mr. Davila is a 61 year old male with h/o atrial fibrillation, CHF, OR (with stent), DM, hypothyroidism, Graves disease, peripheral arterial disease, asthma , and COPD who presented to the emergency department 12/26/16 with primary complaint of shortness of breath worsening x3 weeks. Pt also had c/o "fluttering " sensation and chest pressure that developed 2 days prior to his arrival in the ED. According to pt, the SOB, chest pressure, and fluttering are worse than in the past. Pt states he used to be able to walk around his home without becoming short of breath and without chest discomfort, but now he cannot walk from the hospital bed to the bathroom without experiencing those symptoms. Pt has h/o cardiac ablation done at [facility] in 2006 and a left heart catheterization over the last year at [facility]. His cardiac echo on 12/27/16 shows a LVEF of 65% with mild LV diastolic dysfunction as compared to the echo done in , which showed diastolic dysfunction and a LVEF of 60%. EKG done on 12/29/16 is notable for SVT, which appears to not be on EKG from previous day. Past Med Surg Social Fam HX - Past Medical History Medical history: asthma, atrial fibrillation, CHF, COPD, diabetes, myocardial infarction, peripheral artery disease, thyroid disease, other Psychiatric history: no psych history - Past Surgical History Surgical History: angioplasty/stent, orthopedic, other - Social History Smoking Status: Current every day smoker Packs per day: 1 PPD Smokeless Tobacco Status: No Alcohol use: rarely Drug use: none - Family History Mother Race: Family Member Ethnicity: Non- Living Status: Age at : 72 Cause of : Non-alcoholic cirrhosis Hx Family Cardiac Disorders: No Hx Family Respiratory Disorders: No Father Race: Family Member Ethnicity: Non- Living Status: Age at : 78 Cause of : Pancreatic cancer Hx Family Cardiac Disorders: No Hx Family Respiratory Disorders: No Hx Family Cancer: Yes (Pancreatic) Hx Family Genitourinary Disorders: Yes (Kidney stones) Brother Race: Family Member Ethnicity: Non- Living Status: Still Living Hx Family Cardiac Disorders: Yes (HD, Pacemaker) Sister History Unknown: Yes Race: Family Member Ethnicity: Non- Living Status: Still Living Medications and Allergies RX: Albuterol Sulfate [Albuterol Inhaler] 2 puff IH Q4H PRN 08/04/16 [History] RX: Docusate Sodium [Stool Softener] 100 mg PO BID PRN 08/04/16 [History] RX: FLUoxetine HCl [Prozac] 20 mg PO DAILY 08/04/16 [History] RX: Fenofibrate Nanocrystallized [Tricor] 48 mg PO DAILY 08/04/16 [History] RX: Furosemide [Lasix] 80 mg PO TID 08/04/16 [History] RX: Gabapentin [Neurontin] 600 mg PO TID PRN 08/04/16 [History] RX: LORazepam [Ativan] 0.5 mg PO DAILY PRN 08/04/16 [History] RX: Meloxicam [Mobic] 15 mg PO DAILY 08/04/16 [History] RX: Metformin HCl [Glucophage] 1,000 mg PO BID 08/04/16 [History] RX: Nitroglycerin [Nitrostat] 0.4 mg SL Q5M PRN 08/04/16 [History] RX: Omeprazole [PriLOSEC] 20 mg PO BIDAC 08/04/16 [History] RX: Oxycodone HCl/Acetaminophen [Percocet 7.5-325 mg Tablet] 1 each PO Q6H PRN 08/04/16 [History] RX: Pentoxifylline [TRENtal] 400 mg PO BID 08/04/16 [History] RX: Potassium Chloride [K-Tab ER] 20 meq PO DAILY 08/04/16 [History] RX: Pravastatin Sodium [Pravachol] 40 mg PO HS 08/04/16 [History] RX: Spironolactone [Aldactone] 50 mg PO BID 08/04/16 [History] Levothyroxine Sodium [Synthroid] 200 mcg PO DAILY 12/26/16 [History] 3 Allergy/AdvReac Type Severity Reaction Status Date / Time Amoxicillin [From Augmentin] Allergy Palpitation Verified 08/04/16 13:05 s clavulanic acid Allergy Palpitation Verified 08/04/16 13:05 [From Augmentin] s meperidine [From Demerol] Allergy Palpitation Verified 08/04/16 13:05 s sulfamethoxazole Allergy Rash Verified 08/04/16 13:05 [From Bactrim] trimethoprim [From Bactrim] Allergy Rash Verified 08/04/16 13:05 All Systems Review: A 10-system review of systems was performed and is negative for pertinent findings except as documented above in the HPI. - Constitutional Constitutional: anorexia, no chills, no fever(s) - Cardiovascular Cardiovascular: chest pain with exertion, diaphoresis, dyspnea on exertion, leg edema, orthopnea, palpitations - Respiratory Respiratory: dyspnea Physical Examination Vital Signs, Last 4 Hours Temp Pulse Resp BP Pulse Ox 12/30/16 11:23 97.5 F L 63 16 117/69 96 12/30/16 11:05 18 96 General: Conversant, No Apparent Distress HEENT: Atraumatic, Normocephaly, Mucus Membranes Moist Cardiac: Reg Rate and Rhythm, Normal S1 and S2, No Murmur Neuro: Alert and responsive, No focal deficits noted Musculoskeletal: No Chest Wall Tenderness Extremities: No Clubbing, No Cyanosis, No Edema, Normal Pulses Results 12/30/16 04:03 12/30/16 10:48 Lab Results 12/29/16 12/29/16 12/29/16 14:02 14:18 14:18 WBC 12.0 H Hgb 15.0 Hct 45.2 Plt Count 241 INR Sodium 137 Potassium 3.7 Chloride 95 L Carbon Dioxide 26 BUN 32 H Creatinine 1.90 H Glucose 157 H Calcium 10.7 Magnesium 1.9 Total Bilirubin 0.6 AST 19 ALT 14 Alkaline Phosphatase 55 Troponin I 0.03 TSH 0.824 12/29/16 12/30/16 12/30/16 18:08 04:03 04:03 WBC 10.3 Hgb 14.2 Hct 45.3 Plt Count 217 INR 1.2 Sodium Potassium Chloride Carbon Dioxide BUN Creatinine Glucose Calcium Magnesium Total Bilirubin AST ALT Alkaline Phosphatase Troponin I 0.03 TSH 12/30/16 10:48 WBC Hgb Hct Plt Count INR Sodium 133 L Potassium 3.2 L Chloride 91 L Carbon Dioxide 26 BUN 44 H D Creatinine 2.06 H Glucose 188 H Calcium 10.2 Magnesium Total Bilirubin 0.5 AST 18 ALT 15 Alkaline Phosphatase 52 Troponin I TSH Consult Discharge Plan - Plan Referrals: Fartun Quinones, LOCOMOTIVE MECHANIC [Primary Care Provider] -
[2016-12-30] MEDS ORDERED: *HR* Warfarin 4 MG TABLET PO ONE (18:00)
[2016-12-30] MEDS: Ondansetron 4 MG/2 ML VIAL IVP PRN (21:07)
--- NOTE | 2016-12-30 23:52 | Internal Med Progress Note ---
Date of Encounter: 12/29/16 Time of Encounter: 15:00 - Assessment and plan (1) Pyelonephritis Current Visit: No Status: Suspected (2) Abdominal pain Current Visit: No Status: Acute Qualifiers: Abdominal location: upper abdomen, unspecified Qualified Code(s): R10.10 - Upper abdominal pain, unspecified (3) CHF (congestive heart failure) Current Visit: No Status: Chronic Qualifiers: Congestive heart failure type: diastolic Congestive heart failure chronicity: acute on chronic Qualified Code(s): I50.33 - Acute on chronic diastolic (congestive) heart failure (4) Afib Current Visit: Yes Status: Chronic Qualifiers: Atrial fibrillation type: paroxysmal Qualified Code(s): I48.0 - Paroxysmal atrial fibrillation (5) Diastolic heart failure Current Visit: No Status: Chronic Qualifiers: Heart failure chronicity: chronic Qualified Code(s): I50.32 - Chronic diastolic (congestive) heart failure (6) Chronic respiratory failure with hypoxia Current Visit: No Status: Chronic (7) COPD with acute exacerbation Current Visit: Yes Status: Acute (8) Shortness of breath Current Visit: Yes Status: Acute (9) Acute exacerbation of CHF (congestive heart failure) Current Visit: Yes Status: Acute Qualifiers: Congestive heart failure type: diastolic Qualified Code(s): I50.33 - Acute on chronic diastolic (congestive) heart failure - Subjective Interval history: Addendum: progress note is from 12/29/16. Mostly bothered by right sided abdominal/flank pain. Breathing is not yet at baseline. - Constitutional Vitals: Temp Pulse Resp BP Pulse Ox 97.9 F 76 16 107/68 96 12/30/16 23:17 12/30/16 23:17 12/30/16 23:17 12/30/16 23:17 12/30/16 23:17 General appearance: Present: cooperative, mild distress, A&O X 3, morbidly obese , pleasant, severe distress (Back/flank pain), answers questions appropriately - Respiratory Respiratory exam: Present: rales, wheezes. Absent: respiratory distress - Cardiovascular Cardiovascular exam: Present: irregular rhythm - Extremities Exam Extremities exam: Present: pedal edema Additional comments: edema is improved Internal Medicine: Result - Labs CBC & Chem 7: 12/30/16 04:03 12/30/16 10:48 Labs: Short CBC 12/30/16 Range/Units 04:03 WBC 10.3 (4.3-11.1) K/mcL Hgb 14.2 (12.9-16.9) g/dL Hct 45.3 (37.5-50.1) % Plt Count 217 (140-400) K/mcL BMP 12/30/16 10:48 Sodium 133 L Potassium 3.2 L Chloride 91 L Carbon Dioxide 26 BUN 44 H D Creatinine 2.06 H Glucose 188 H Calcium 10.2 Liver Function 12/30/16 Range/Units 10:48 Total Bilirubin 0.5 (0.2-1.2) mg/dL AST 18 (5-34) Units/L ALT 15 (0-55) Units/L Alkaline Phosphatase 52 (38-126) Units/L Albumin 3.8 (3.5-5.0) g/dL - ABG Interpretation ABG results: PT/INR, D-dimer PT 12.5 Seconds (9.4-12.1) H 12/30/16 04:03 Consult Discharge Plan - Plan Referrals: Fartun Quinones, PATENT AGENT [Primary Care Provider] -
[2016-12-31] MEDS: Ipratropium/Albuterol Neb 3 ML IH SCH ×6 (04:42→23:55)
[2016-12-31] MEDS: *HR* Heparin 5,000 UNIT/ML VIAL SQ SCH ×3 (05:29→21:25)
[2016-12-31] MEDS: *HR* Morphine 2 MG/ML SYRINGE IVP PRN ×2 (05:29→19:40)
[2016-12-31 06:28] LABS: Hematocrit 41.3 % (37.5-50.1); Hemoglobin 13.2 g/dL (12.9-16.9); Mean Corpuscular Hemoglobin 28.1 pg (28.0-33.3); Mean Corpuscular Volume 88.1 fL (83.0-100.0); Mean Platelet Volume 11.7 fL (9.4-12.4); Platelet Count 224 K/mcL (140-400); Red Blood Count 4.69 M/mcL (4.19-5.50); Red Cell Distribution Width 14.6 % (11.5-14.5)
[2016-12-31 06:34] LABS: INR 1.3; Prothrombin Time 13.8 Seconds (9.4-12.1)
--- NOTE | 2016-12-31 07:54 | Electrocardiograph Report ---
[place] [address] Test Date: 2016-12-26 Pat Name: Clemente Davila Department: 102 Room: 3B37 Gender: M Corporate Pilot: [place] : 1955 Requested By: Aamir Rae Order Number: [id number] Reading MD: Ray Alexis DO Measurements Intervals [place] Rate: 75 P: 5 AL: 138 QRS: -12 QRSD: 94 T: 54 QT: 381 QTc: 409 Interpretive Statements SINUS RHYTHM LOW QRS VOLTAGE IN PRECORDIAL LEADS Electronically Signed On 12-27-2016 16:44:08 EDT by Ray Alexis DO
--- NOTE | 2016-12-31 08:11 | Cardiology Progress Note ---
Date of Encounter: 12/31/16 Time of Encounter: 09:00 Assessment and Plan (1) SVT (supraventricular tachycardia) Current Visit: Yes Status: Acute -as seen on 12/29/16 EKG. -First dose of carvedilol 6.25mg PO was given last night, will continue this medication and see if it helps to control his symptoms. -Pt's second dose of carvedilol 6.25mg resulted in a systolic BP of 130 -discontinued order for increasing carvedilol--continue carvedilol @ 6.25mg PO BID. -No documentation to suggest pt has atrial fibrillation based on the EKGs available from this admission. Similarly, no documentation available through cardiology at [facility] to suggest past h/o atrial fibrillation. However, we will continue to monitor. -Recommend pt follow up with cardiology in 2 to 3 weeks from discharge. (2) Diastolic heart failure Current Visit: No Status: Chronic -No rales heard on auscultation this morning. Pt admits his breathing has improved since admission. -(12/26/16) BNP: 11 -Echocardiogram 12/27/16: LVEF 65% with mild LV diastolic dysfunction; echocardiogram 06/2016: LVEF 60%. Discussion w patient/family: The assessment and plan as outlined above was discussed with the patient and/or family members who expressed understanding and agreement. All questions were answered. Thank you for involving us in the care of your patient. Please call with any questions. Subjective Principal diagnosis: SVT Interval history: Pt seen and examined this morning. Pt lying on his left side and appears in better spirits than yesterday. He continues to admit to chest discomfort that is "right on the edge" of being painful, this sensation is present while at rest and is worse with movement. He also continues to admit to heart "fluttering " at rest and is worse with movement. Pt reports he had an episode yesterday in which he almost became diaphoretic and experienced nausea, but states his symptoms improved after he was given a beta-alf. Shortness of breath and pleuritic pain is improved over yesterday and overall since his admission. Admits to cough that is somewhat productive of "greenish-black" sputum, denies presence of bright red blood. Objective Vital Signs, Last 4 Hours Temp Pulse Resp BP Pulse Ox 12/31/16 08:01 18 98 12/31/16 07:16 97.8 F 72 18 115/80 93 General: Conversant, No Apparent Distress HEENT: Atraumatic, Normocephaly, Mucus Membranes Moist Cardiac: Reg Rate and Rhythm, No Murmur, Other (muffled heart sounds 2/2 body habitus) Lungs: Other (Normal respiratory effort; RUL and LLL wheezing) Neuro: Alert and responsive, No focal deficits noted Skin: Other (lower extremities dry and dusky red) Musculoskeletal: No Chest Wall Tenderness Extremities: Other (non-pitting edema of lower extremities, somewhat tender to palpation; radial pulses palpable b/l) Results 12/31/16 06:04 12/31/16 09:44 Lab Results 12/30/16 12/31/16 12/31/16 10:48 06:04 06:04 WBC 10.4 Hgb 13.2 Hct 41.3 Plt Count 224 INR 1.3 Sodium 133 L Potassium 3.2 L Chloride 91 L Carbon Dioxide 26 BUN 44 H D Creatinine 2.06 H Glucose 188 H Calcium 10.2 Total Bilirubin 0.5 AST 18 ALT 15 Alkaline Phosphatase 52 Consult Discharge Plan - Plan Referrals: Fartun Quinones, COMPARISON SHOPPER [Primary Care Provider] -
--- NOTE | 2016-12-31 08:16 | Electrocardiograph Report ---
[address] [place] [address] Test Date: 2016-12-28 Pat Name: Clemente Davila Department: 113 Room: [facility] Gender: M Bridal Gown Fitter: : 1955 Requested By: Padmaja Quan Order Number: [id number] Reading MD: Erika Laguerre Measurements Intervals [place] Rate: 85 P: 9 OR: 140 QRS: 19 QRSD: 98 T: 37 QT: 376 QTc: 418 Interpretive Statements SINUS RHYTHM Electronically Signed On 12-30-2016 11:08:25 EDT by Erika Laguerre
[2016-12-31] MEDS: Insulin LISPRO 300 UNITS/3 ML VIAL SQ SCH ×4 (08:32→20:04)
[2016-12-31] MEDS: Nicotine 21 MG PATCH.TD24 TD SCH (08:42)
[2016-12-31] MEDS: FLUoxetine 20 MG CAPSULE PO SCH (08:43)
[2016-12-31 09:40] LABS: Osmolality,Urine 361 mOsm/kg (300-1090)
--- NOTE | 2016-12-31 09:59 | Event Note ---
Date of Encounter: 12/31/16 Time of Encounter: 09:59 Still pending renal labs. Will check back later.
[2016-12-31 10:10] LABS: Albumin 3.7 g/dL (3.5-5.0); Albumin/Globulin Ratio 0.9 (1.1-2.2); Bilirubin,Total 0.3 mg/dL (0.2-1.2); Calcium 10.3 mg/dL (8.6-10.8); Globulin 4.2 g/dL (2.4-3.5); Potassium 3.3 mEq/L (3.5-4.5); Total Protein 7.9 g/dL (6.0-8.3)
[2016-12-31] MEDS: *HR* HYDROcodone/Acet 5/325 mg TABLET PO PRN (15:25)
--- NOTE | 2016-12-31 17:26 | Internal Med Progress Note ---
Date of Encounter: 12/31/16 Time of Encounter: 09:30 - Assessment and plan (1) PRICE (acute kidney injury) Status: Acute Assessment and plan: Likely due to diuretic and NSAID use. Nephrology following. Renal function appears to be stabilizing and should improve. Continue to hold diuretics. Stopped Mobic. Moderate risk for complications. (2) Pyelonephritis Status: Suspected Assessment and plan: Patient received IV ceftriaxone for 5 days. Cultures have been negative. We will stop antibiotics at this time. (3) CHF (congestive heart failure) Status: Chronic Assessment and plan: Holding Lasix due to abnormal renal function. Patient is clinically getting better. It is pretty status appears to be stable. We will wean FiO2 as tolerated. Qualifiers: Congestive heart failure type: diastolic Congestive heart failure chronicity: acute on chronic Qualified Code(s): I50.33 - Acute on chronic diastolic (congestive) heart failure (4) Abdominal pain Status: Acute Assessment and plan: Improving. He mainly in the right flank. Qualifiers: Abdominal location: right upper quadrant Qualified Code(s): R10.11 - Right upper quadrant pain (5) Afib Status: Ruled-out Assessment and plan: Patient's past medical history suggests history of A. fib but there has been no convincing evidence of this according to cardiology review of patient's records. 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 He will follow up with electrophysiology as outpatient. Qualifiers: Atrial fibrillation type: paroxysmal Qualified Code(s): I48.0 - Paroxysmal atrial fibrillation (6) Chronic respiratory failure with hypoxia Status: Chronic Assessment and plan: Continue O2 supplementation (7) COPD with acute exacerbation Status: Acute Assessment and plan: Treating with bronchodilators. (8) SVT (supraventricular tachycardia) Status: Acute Assessment and plan: Evaluated by cardiology. Started on beta blockers. No new episodes of SVT. He will follow up with electrophysiology after discharge for further management. - Subjective Interval history: Patient complains of back pain and right flank pain. No fevers or chills reported. Respiratory status is stable. No chest pain. No nausea or vomiting. Tolerating diet well. - Constitutional Vitals: Temp Pulse Resp BP Pulse Ox 98.7 F 71 16 103/69 95 12/31/16 15:20 12/31/16 15:20 12/31/16 15:22 12/31/16 15:20 12/31/16 15:22 General appearance: Present: cooperative, mild distress, A&O X 3, morbidly obese , pleasant, answers questions appropriately - Respiratory Respiratory exam: Present: CTAB. Absent: accessory muscle use, rales, rhonchi, wheezes - Cardiovascular Cardiovascular exam: Present: RRR, +S1, +S2. Absent: diastolic murmur, gallop, rubs, systolic murmur - GI/Abdominal GI/Abdominal exam: Present: normal bowel sounds, soft, no peritoneal signs. Absent: distended, tenderness - Extremities Exam Extremities exam: Present: warm, radial pulses palpable and symmetrical. Absent : calf tenderness, cyanotic, pedal edema - Neurological Exam Neurological exam: Present: alert, oriented X3, no focal deficits. Absent: facial droop, speech deficit - Skin Skin exam: Present: dry, intact Internal Medicine: Result - Labs CBC & Chem 7: 01/01/17 05:36 01/01/17 09:36 Labs: Short CBC 12/31/16 Range/Units 06:04 WBC 10.4 (4.3-11.1) K/mcL Hgb 13.2 (12.9-16.9) g/dL Hct 41.3 (37.5-50.1) % Plt Count 224 (140-400) K/mcL BMP 12/31/16 09:44 Sodium 135 L Potassium 3.3 L Chloride 93 L Carbon Dioxide 29 BUN 50 H Creatinine 1.72 H Glucose 170 H Calcium 10.3 Liver Function 12/31/16 Range/Units 09:44 Total Bilirubin 0.3 (0.2-1.2) mg/dL AST 17 (5-34) Units/L ALT 14 (0-55) Units/L Alkaline Phosphatase 53 (38-126) Units/L Albumin 3.7 (3.5-5.0) g/dL - ABG Interpretation ABG results: PT/INR, D-dimer PT 13.8 Seconds (9.4-12.1) H 12/31/16 06:04 Consult Discharge Plan - Plan Instructions: Chronic Obstructive Pulmonary Disease (DC) Additional Instructions: Please follow up with Coumadin clinic as early as possible Referrals: Fartun Quinones, HACKSAW INSPECTOR [Primary Care Provider] - 01/07/17 10:15 am (in 1 week) Zackery Esparza DO [Partnered Physician] - (within 1 week. Office to contact patient at home to schedule appointment. ) Prescriptions: Carvedilol [Coreg] 6.25 mg PO BIDWM #60 tab Furosemide [Lasix] 40 mg PO BID #60 tab Warfarin perPT [Coumadin perPT] 10 mg PO 1800 #30 tablet
[2016-12-31] MEDS ORDERED: *HR* Warfarin 10 MG TABLET PO ONE (18:00)
[2017-01-01] MEDS: Ipratropium/Albuterol Neb 3 ML IH SCH ×3 (04:34→11:40)
[2017-01-01] MEDS: *HR* Heparin 5,000 UNIT/ML VIAL SQ SCH ×2 (05:53→14:06)
[2017-01-01 06:05] LABS: Hematocrit 41.6 % (37.5-50.1); Hemoglobin 13.5 g/dL (12.9-16.9); Mean Corpuscular HGB Conc 32.5 g/dL (31.6-35.5); Mean Corpuscular Hemoglobin 28.1 pg (28.0-33.3); Mean Corpuscular Volume 86.5 fL (83.0-100.0); Mean Platelet Volume 11.5 fL (9.4-12.4); Platelet Count 185 K/mcL (140-400); Red Blood Count 4.81 M/mcL (4.19-5.50); Red Cell Distribution Width 14.3 % (11.5-14.5)
[2017-01-01 06:14] LABS: INR 1.6
[2017-01-01 06:16] LABS: BUN/Creatinine Ratio 34 (6-26); Blood Urea Nitrogen 42 mg/dL (8-26); Calcium 9.7 mg/dL (8.6-10.8); Carbon Dioxide 28 mEq/L (19-29); Chloride 96 mEq/L (98-109); Glucose 120 mg/dL (70-99); Osmolality,Calculated 290 (280-300); Potassium 3.4 mEq/L (3.5-4.5); Sodium 134 mEq/L (136-145); eGFR For African Americans > 60 (> 60); eGFR For Non-African Americans 59 (> 60)
[2017-01-01] MEDS: FLUoxetine 20 MG CAPSULE PO SCH (08:30)
[2017-01-01] MEDS: Nicotine 21 MG PATCH.TD24 TD SCH (08:31)
[2017-01-01] MEDS: Insulin LISPRO 300 UNITS/3 ML VIAL SQ SCH ×2 (08:57→12:31)
[2017-01-01 09:54] LABS: Alanine Aminotransferase 14 Units/L (0-55); Albumin 3.7 g/dL (3.5-5.0); Albumin/Globulin Ratio 0.9 (1.1-2.2); Alkaline Phosphatase 47 Units/L (38-126); Aspartate Amino Transferase 15 Units/L (5-34); BUN/Creatinine Ratio 31 (6-26); Bilirubin,Total 0.3 mg/dL (0.2-1.2); Blood Urea Nitrogen 40 mg/dL (8-26); Calcium 9.8 mg/dL (8.6-10.8); Carbon Dioxide 27 mEq/L (19-29); Chloride 94 mEq/L (98-109); Globulin 3.9 g/dL (2.4-3.5); Glucose 180 mg/dL (70-99); Osmolality,Calculated 292 (280-300); Potassium 3.1 mEq/L (3.5-4.5); Sodium 134 mEq/L (136-145); Total Protein 7.6 g/dL (6.0-8.3); eGFR For African Americans > 60 (> 60); eGFR For Non-African Americans 55 (> 60)
--- NOTE | 2017-01-01 10:36 | Nephrology Progress Note ---
Date of Encounter: 01/01/17 Time of Encounter: 10:35 - Assessment and Plan (1) PRICE (acute kidney injury) Status: Acute Trending better off diuretics and NSAIDs. Would be reasonable to restart loop diuretcs (such as lasix 40mg po bid), but at lower doses initially and would expect titration based upon his UOP and volume status/weights. Discussed with the primary team. Dispite his chronic back pains he is not having hydronephrosis demonstrated and his SCr is rapidly improving. Reasonable to follow up with me in nephrology to help with PRICE and/or diuretics in about 3- 6 weeks. Thank you. (2) NSAID long-term use Status: Acute I counseled the pt for >50% of my 20 min encounter on the importance of renal care such as avoidance of NSAIDs and other nephrotoxins such as Bactrim, IV contrast. He should lose weight and start to focus on a lower sodium diet. (3) Pyelonephritis Status: Suspected As per primary. Subjective Principal diagnosis: SVT Interval history: Pt was s/e and he reported feeling a little better. He did not affirm N/V/D or active dysuria. He did affirm chronic back pains (I told him that I'd defer to his Primary team). Objective - Vital Signs Vital signs: Vital Signs Temp Pulse Resp BP Pulse Ox 01/01/17 08:38 98 01/01/17 08:01 18 87 01/01/17 07:08 97.6 F 68 17 99/62 98 01/01/17 03:00 97.8 F 73 16 103/67 95 12/31/16 23:58 18 96 12/31/16 23:14 97.9 F 68 12 130/72 97 12/31/16 20:20 20 98 12/31/16 19:30 98 12/31/16 18:42 97.8 F 106 18 116/73 99 12/31/16 15:22 16 95 12/31/16 15:20 98.7 F 71 103/69 93 12/31/16 11:40 98.4 F 68 17 103/66 96 12/31/16 11:00 16 95 Intake and Output 12/31/16 01/01/17 01/01/17 23:59 07:59 15:59 Intake Total 120 / 120 Balance 120 / 120 Intake: Oral 120 / 120 Other: Meal Breakfast Percent of Meal Consumed 100% Weight 166.786 kg Blood Glucose* 164 117 Patient Weight 01/01/17 23:59 Weight 166.786 kg - General Appearance Exam: General appearance: well-developed, well-nourished, appears started age, obese, chronically ill EENT: ATNC, PERRL, mucous membranes moist Neck: supple Respiratory: clear Cardiology: edema (only trace bilateral pedeal non pitting (consistent with adiposity)), regular rate, regular rhythm, normal S1, normal S2 Gastrointestinal: normoactive bowel sounds, no tenderness, no guarding, obese ( very obese abd) Integumentary: no rash, warm and dry Neurologic: no focal deficit, no asterixis, alert and oriented x3 Musculoskeletal: no erythema, no cyanosis, no clubbing Psychiatric: mood/affect appropriate, cooperative - Lab 01/01/17 05:36 01/01/17 09:36 Most recent lab results Calcium 9.8 mg/dL (8.6-10.8) 01/01/17 09:36 Magnesium 1.9 mg/dL (1.6-2.6) 12/29/16 14:18 Urine Creatinine 98 mg/dL 12/29/16 19:42 Urine Total Protein < 7 mg/dL (1-14) 12/29/16 19:42 Consult Discharge Plan - Plan Instructions: Chronic Obstructive Pulmonary Disease (DC) Additional Instructions: Please follow up with Coumadin clinic as early as possible Referrals: Fartun Quinones CNP [Primary Care Provider] - 01/07/17 10:15 am (in 1 week) Zackery Esparza DO [Partnered Physician] - (within 1 week. Office to contact patient at home to schedule appointment. ) Prescriptions: Carvedilol [Coreg] 6.25 mg PO BIDWM #60 tab Furosemide [Lasix] 40 mg PO BID #60 tab Warfarin perPT [Coumadin perPT] 10 mg PO 1800 #30 tablet
[2017-01-01 11:12] VITALS: BP 103/53
[2017-01-01] MEDS ORDERED: Bisacodyl 10 MG RECTAL SUPPOSITORY RC ONE (11:45)
--- NOTE | 2017-01-01 14:03 | Discharge Summary ---
Date of Encounter: 01/01/17 Time of Encounter: 13:57 - Discharge Diagnosis (1) CHF (congestive heart failure) Priority: Primary Status: Chronic Qualifiers: Congestive heart failure type: diastolic Congestive heart failure chronicity: acute on chronic Qualified Code(s): I50.33 - Acute on chronic diastolic (congestive) heart failure (2) Abdominal pain Priority: Secondary Status: Acute Qualifiers: Abdominal location: right upper quadrant Qualified Code(s): R10.11 - Right upper quadrant pain (3) Afib Priority: Secondary Status: Ruled-out Qualifiers: Atrial fibrillation type: paroxysmal Qualified Code(s): I48.0 - Paroxysmal atrial fibrillation (4) Chronic respiratory failure with hypoxia Priority: Secondary Status: Chronic (5) COPD with acute exacerbation Priority: Secondary Status: Acute (6) Pyelonephritis Priority: Secondary Status: Suspected (7) PRICE (acute kidney injury) Priority: Secondary Status: Acute (8) SVT (supraventricular tachycardia) Priority: Secondary Status: Acute - Discharge Medications Prescriptions: Carvedilol [Coreg] 6.25 mg PO BIDWM #60 tab Furosemide [Lasix] 40 mg PO BID #60 tab Warfarin perPT [Coumadin perPT] 10 mg PO 1800 #30 tablet Home Medications: Albuterol Sulfate [Albuterol Inhaler] 2 puff IH Q4H PRN 08/04/16 [History] Docusate Sodium [Stool Softener] 100 mg PO BID PRN 08/04/16 [History] FLUoxetine HCl [Prozac] 20 mg PO DAILY 08/04/16 [History] Fenofibrate Nanocrystallized [Tricor] 48 mg PO DAILY 08/04/16 [History] Gabapentin [Neurontin] 600 mg PO TID PRN 08/04/16 [History] LORazepam [Ativan] 0.5 mg PO DAILY PRN 08/04/16 [History] Metformin HCl [Glucophage] 1,000 mg PO BID 08/04/16 [History] Nitroglycerin [Nitrostat] 0.4 mg SL Q5M PRN 08/04/16 [History] Omeprazole [PriLOSEC] 20 mg PO BIDAC 08/04/16 [History] Oxycodone HCl/Acetaminophen [Percocet 7.5-325 mg Tablet] 1 each PO Q6H PRN 08/04 [History] Pentoxifylline [TRENtal] 400 mg PO BID 08/04/16 [History] Potassium Chloride [K-Tab ER] 20 meq PO DAILY 08/04/16 [History] Pravastatin Sodium [Pravachol] 40 mg PO HS 08/04/16 [History] Levothyroxine Sodium [Synthroid] 200 mcg PO DAILY 12/26/16 [History] Carvedilol [Coreg] 6.25 mg PO BIDWM #60 tab 01/01/17 [Rx] Furosemide [Lasix] 40 mg PO BID #60 tab 01/01/17 [Rx] Warfarin perPT [Coumadin perPT] 10 mg PO 1800 #30 tablet 01/01/17 [Rx] Allergies/Adverse Reactions: 3 Allergy/AdvReac Type Severity Reaction Status Date / Time Amoxicillin [From Augmentin] Allergy Palpitation Verified 08/04/16 13:05 s clavulanic acid Allergy Palpitation Verified 08/04/16 13:05 [From Augmentin] s meperidine [From Demerol] Allergy Palpitation Verified 08/04/16 13:05 s sulfamethoxazole Allergy Rash Verified 08/04/16 13:05 [From Bactrim] trimethoprim [From Bactrim] Allergy Rash Verified 08/04/16 13:05 Procedures/tests Complete & Pending: Procedures Performed prior 72 hours Category Date Time Status ECG 12 lead ECG [ECG] Routine Y 12/29/16 13:06 Completed Date of admission: 12/26/16 16:20 Primary care physician: Fartun Quinones CNP Consults: 12/26/16 16:27 Consult to Marketing Development Manager [CONS] Routine Reason for SW Consult: Assess patient for home needs 12/26/16 16:28 Consult to Occupational Therapy [CONS] Routine Comment: Evaluate, develop and implement POC Reason for Consult: Assess patient for ambulation/strengthening/exercises for post-discharge. Patient becomes SOB and weak d/t CHF and COPD 12/26/16 16:30 Consult to Physical Therapy [CONS] Routine Comment: Evaluate, develop and implement POC Reason for Consult: Assess patient for ambulation/strengthening/exercises for post-discharge. Patient becomes SOB and weak d/t CHF and COPD 12/27/16 09:59 Consult to Pain Management [CONS] Routine Consulting Provider: Pain Mgt Interventional Karen Reason for Consult: lumbar stenosis with worsening back pain Call Completed: Yes 12/29/16 14:19 Consult to Cardiology [CONS] Routine Comment: Consulting Provider: Cardiology Karen Reason for Consult: Respiratory distress with HFpEF exacerbation, chest pressure despite aggressive diuresis. Call Completed: No 12/29/16 14:38 Consult to Nephrology [CONS] Routine Consulting Provider: Kidney Karen/BRET/MELI/DANICA Reason for Consult: PRICE in patient with HFpEF exacerbation fluid overloaded with multiple diuretics. Retroperitoneal U/S and CT abdomen/pelvis (without contrast) unremarkable. Call Completed: No Discharging clinician: Quinton Hawkins Anticipated date of discharge: 01/01/17 - Patient Status Disposition: Home, Self-Care Condition: Good Functional capacity at discharge: independent ambulation Overall status at discharge: patient is progressing back to baseline - Discharge Instructions Instructions: Chronic Obstructive Pulmonary Disease (DC) Follow Up With: Fartun Quinones CNP [Primary Care Provider] - 01/07/17 10:15 am (in 1 week) Zackery Esparza DO [Partnered Physician] - (within 1 week. Office to contact patient at home to schedule appointment. ) Additional Instructions: Please follow up with Coumadin clinic as early as possible - Diet and Activity Activity: as per physical therapy, increase activity as tolerated, wear oxygen at night Diet: diabetic diet, low fat, low cholesterol, low salt diet Hospital course: Mr. Davila is a 61 year old male patient with a history of COPD, CHF, diabetes, NH was hospitalized here with complaints of increase shortness of breath along with chest pressure worse with laying down. He was diagnosed with acute on chronic congestive heart failure and was treated with diuretics. His troponins were also trended and were found to be negative. He was also treated for COPD exacerbation with bronchodilators. His initial urinalysis suggested possible UTI. Patient did have bilateral flank pain and was suspected to have pyelonephritis. He was started on treatment for this with IV antibiotics. Echocardiogram done here showed a normal EF of 65% with mild to moderate left ventricular hypertrophy and left ventricular diastolic dysfunction. Over the course of the next few days, while his respiratory symptoms improved, his renal function began to decline. Nephrology was consulted for acute kidney injury. Patient's BNP was never elevated and so his diuretics were stopped as they could be causing his worsening renal function. Patient also takes Mobic at home and this was also stopped. After these medications were stopped, his renal function started to improve. This morning his creatinine is within normal limits. Patient's urine culture is negative. He has completed 5 days of IV ceftriaxone therapy. He does not need any further antibiotics due to his negative cultures. The patient has continued to have back pain and bilateral flank pain. Pain management was consulted and they suspected that the pain could be related to patient's acute infection but would follow up with him as outpatient in the clinic for further management of chronic pain. Patient has chronic respiratory failure and is on home oxygen. He will continue to use the same after discharge. Patient is stable for discharge at this time and will follow up with cardiology, nephrology and pain management. Per nephrology recommendations, he will be started back on 40 mg of Lasix twice daily now that his kidney function has improved. - Time Spent with Patient Total time spent providing and/or coordinating discharge services: Greater than 30 minutes (40 min) - Constitutional Vitals: Temp Pulse Resp BP Pulse Ox 98.1 F 76 18 103/53 94 01/01/17 11:08 01/01/17 11:08 01/01/17 11:41 01/01/17 11:01/01/17 11:41 General appearance: Present: cooperative, A&O X 3, morbidly obese, pleasant, no acute distress, answers questions appropriately - Neck Neck exam general surgery: Present: supple, trachea midline. Absent: lymphadenopathy - Respiratory Respiratory exam: Present: CTAB. Absent: accessory muscle use, rales, rhonchi, wheezes - Cardiovascular Cardiovascular exam: Present: RRR, +S1, +S2. Absent: diastolic murmur, gallop, rubs, systolic murmur - GI/Abdominal GI/Abdominal exam: Present: normal bowel sounds, soft, no peritoneal signs. Absent: distended, tenderness - Extremities Exam Extremities exam: Present: warm, radial pulses palpable and symmetrical. Absent : calf tenderness, cyanotic, pedal edema - Neurological Exam Neurological exam: Present: alert, oriented X3, no focal deficits. Absent: facial droop, speech deficit - Skin Skin exam: Present: dry, intact
--- NOTE | 2017-01-01 14:08 | Physician Discharge Referral ---
Home Health/Hosp Referral Info Transfer to: Home Health Provider in Charge Post Discharge: PCP - Diagnosis (1) CHF (congestive heart failure) Priority: Primary Status: Chronic (2) Abdominal pain Priority: Secondary Status: Acute (3) Afib Priority: Secondary Status: Ruled-out (4) Chronic respiratory failure with hypoxia Priority: Secondary Status: Chronic (5) COPD with acute exacerbation Priority: Secondary Status: Acute (6) Pyelonephritis Priority: Secondary Status: Suspected (7) PRICE (acute kidney injury) Priority: Secondary Status: Acute (8) SVT (supraventricular tachycardia) Priority: Secondary Status: Acute - Respiratory Orders Smoking Cessation: Smoking cessation has been advised. For more information, call the [place] Tobacco Quit Line at 8-657-EFAB-NOW. - Diet/Nutrition Diet/Nutrition Orders: Cardiac, No Concentrated Sweets (diabetic) - Activity Activity Orders: Walker - Services Needed Following services are medically necessary services: Nursing, Physical Therapy, Occupational Therapy Home Care Orders: Basic panel and PT/INR on 01/03/17. Forward results to coumadin clinic and Dr. Esparza. - Transfer Medications Prescriptions: Carvedilol [Coreg] 6.25 mg PO BIDWM #60 tab Furosemide [Lasix] 40 mg PO BID #60 tab Warfarin perPT [Coumadin perPT] 10 mg PO 1800 #30 tablet Home Medications: Albuterol Sulfate [Albuterol Inhaler] 2 puff IH Q4H PRN 08/04/16 [History] Docusate Sodium [Stool Softener] 100 mg PO BID PRN 08/04/16 [History] FLUoxetine HCl [Prozac] 20 mg PO DAILY 08/04/16 [History] Fenofibrate Nanocrystallized [Tricor] 48 mg PO DAILY 08/04/16 [History] Gabapentin [Neurontin] 600 mg PO TID PRN 08/04/16 [History] LORazepam [Ativan] 0.5 mg PO DAILY PRN 08/04/16 [History] Metformin HCl [Glucophage] 1,000 mg PO BID 08/04/16 [History] Nitroglycerin [Nitrostat] 0.4 mg SL Q5M PRN 08/04/16 [History] Omeprazole [PriLOSEC] 20 mg PO BIDAC 08/04/16 [History] Oxycodone HCl/Acetaminophen [Percocet 7.5-325 mg Tablet] 1 each PO Q6H PRN 08/04 [History] Pentoxifylline [TRENtal] 400 mg PO BID 08/04/16 [History] Potassium Chloride [K-Tab ER] 20 meq PO DAILY 08/04/16 [History] Pravastatin Sodium [Pravachol] 40 mg PO HS 08/04/16 [History] Levothyroxine Sodium [Synthroid] 200 mcg PO DAILY 12/26/16 [History] Carvedilol [Coreg] 6.25 mg PO BIDWM #60 tab 01/01/17 [Rx] Furosemide [Lasix] 40 mg PO BID #60 tab 01/01/17 [Rx] Warfarin perPT [Coumadin perPT] 10 mg PO 1800 #30 tablet 01/01/17 [Rx] Allergies/Adverse Reactions: 3 Allergy/AdvReac Type Severity Reaction Status Date / Time Amoxicillin [From Augmentin] Allergy Palpitation Verified 08/04/16 13:05 s clavulanic acid Allergy Palpitation Verified 08/04/16 13:05 [From Augmentin] s meperidine [From Demerol] Allergy Palpitation Verified 08/04/16 13:05 s sulfamethoxazole Allergy Rash Verified 08/04/16 13:05 [From Bactrim] trimethoprim [From Bactrim] Allergy Rash Verified 08/04/16 13:05 Certification: Further, I certify that my clinical findings support that this patient is homebound (i.e. absences from home require considerable and taxing effort and are for medical reasons or christianity services or infrequently or short duration when for other reasons) because: Homebound Reason: Patient requires assistance of a person or device to safely leave home Attestation: My signature below is to certify that this patient is under my care and that I, or nurse practitioner, or a physician's outreach assistant working with me, has a face-to -face encounter with this patient.
--- NOTE | 2017-01-01 15:54 | Electrocardiograph Report ---
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
[2017-01-01] MEDS ORDERED: *HR* Warfarin 10 MG TABLET PO ONE (18:00)
== END 2017-01-01 15:14 | disposition home or self-care (01) | DRG 292 ==
LOC: EMEROO 09:58 → 3BNU 09:58 → SUATTDRO 16:20
PROVIDERS: ADMIT Internal Medicine; ATTEND Internal Medicine

== ENCOUNTER 2017-08-28 17:02 | Inpatient (IN) ==
--- NOTE | 2017-08-28 17:18 | Emergency Department Note ---
Disposition Clinical Impression: Acute exacerbation of chronic obstructive airways disease Acute exacerbation of CHF (congestive heart failure) Qualifiers: Heart failure type: unspecified Qualified Code(s): I50.9 - Heart failure, unspecified Disposition: Home, Self-Care Condition: Good Referrals: Fartun Quinones, VP OF TECHNOLOGY [Primary Care Provider] - Forms: ED Satisfaction Letter Time of Disposition: 19:18 General Adult HPI - General Chief complaint: ED Shortness of Breath/Dyspnea Stated complaint: Shortness of Breath, Eye Problem Time Seen by Provider: 08/28/17 17:15 - History of Present Illness HPI Narrative: Mr. Davila, 62-year-old male, presents from home for evaluation of a one- week history of progressive dyspnea. Worse with laying supine. So she with dry cough. He notes increased swelling of his lower extremities as well as weight gain of 8-10 pounds. To him, this feels similar to prior exacerbations of CHF for which she has had prior admissions. Patient's dyspnea is not improved with his home inhaler or oxygen. Patient also notes that when his dyspnea was most severe, he had blackening of his vision that was transient with no CPR falls. COPD on home nebulizer and when necessary oxygen 3 L. Does have a BECK however has not been using BiPAP last 3 months because the machine is broken and has pending sleep study. History of CAD with stent 1. History of CHF. DVT 12 years ago for which he is still on Coumadin. ROS: Positive: As above Negative: Fever, chills, productive cough, chest pain, diaphoresis, unusual back pain, weakness. Pain Scale: 5 - Related Data Home Medications Medication Instructions Recorded Confirmed Albuterol Sulfate [Albuterol 2 puff IH Q4H PRN 08/04/16 12/26/16 Inhaler] Docusate Sodium [Stool Softener] 100 mg PO BID PRN 08/04/16 12/26/16 FLUoxetine HCl [Prozac] 20 mg PO DAILY 08/04/16 12/26/16 Fenofibrate Nanocrystallized 48 mg PO DAILY 08/04/16 12/26/16 [Tricor] Gabapentin [Neurontin] 600 mg PO TID PRN 08/04/16 12/26/16 LORazepam [Ativan] 0.5 mg PO DAILY PRN 08/04/16 12/26/16 Metformin HCl [Glucophage] 1,000 mg PO BID 08/04/16 12/26/16 Nitroglycerin [Nitrostat] 0.4 mg SL Q5M PRN 08/04/16 12/26/16 Omeprazole [PriLOSEC] 20 mg PO BIDAC 08/04/16 12/26/16 Oxycodone HCl/Acetaminophen 1 each PO Q6H PRN 08/04/16 12/26/16 [Percocet 7.5-325 mg Tablet] Pentoxifylline [TRENtal] 400 mg PO BID 08/04/16 12/26/16 Potassium Chloride [K-Tab ER] 20 meq PO DAILY 08/04/16 12/26/16 Pravastatin Sodium [Pravachol] 40 mg PO HS 08/04/16 12/26/16 Levothyroxine Sodium [Synthroid] 200 mcg PO DAILY 12/26/16 12/26/16 Previous Rx's Medication Instructions Recorded Carvedilol [Coreg] 6.25 mg PO BIDWM #60 tab 01/01/17 Furosemide [Lasix] 40 mg PO BID #60 tab 01/01/17 Warfarin perPT [Coumadin perPT] 10 mg PO 1800 #30 tablet 01/01/17 Allergies Allergy/AdvReac Type Severity Reaction Status Date / Time Amoxicillin [From Augmentin] Allergy Palpitation Verified 08/04/16 13:05 s clavulanic acid Allergy Palpitation Verified 08/04/16 13:05 [From Augmentin] s meperidine [From Demerol] Allergy Palpitation Verified 08/04/16 13:05 s sulfamethoxazole Allergy Rash Verified 08/04/16 13:05 [From Bactrim] trimethoprim [From Bactrim] Allergy Rash Verified 08/04/16 13:05 All systems ED: reviewed and negative except as stated. Review of Systems: As Per HPI Past Medical History - Past Medical History Medical history: Reports: asthma, atrial fibrillation, CHF, COPD, diabetes, myocardial infarction, peripheral artery disease, thyroid disease, other Surgical history: Reports: angioplasty/stent, orthopedic, other Psychiatric history: Reports: no psych history - Social History Smoking Status: Current every day smoker Smokeless Tobacco Status: No Alcohol use: Reports: rarely Drug use: Reports: none Physical Exam Vital Signs Reviewed General: Patient is alert, oriented, and in mild respiratory distress-accessory muscle usage however no conversational dyspnea and not hypoxic on room air. Head: atraumatic, normocephalic Eye: normal appearance, PERRL, EOMI, no scleral icterus, no conjunctival injection. Funduscopic exam shows no papilledema or flame hemorrhages bilaterally. ENT: mucous membranes moist, normal external ear exam Neck: normal inspection, trachea midline, full ROM Chest: normal inspection, symmetric chest rise. Gynecomastia. Respiratory: Poor respiratory effort. Prolonged expiratory phase. Bilateral breath sounds are clear without wheezing, crackles, or rhonchi. Cardiovascular: Regular rate and rhythm. No clicks, rubs, gallops, or murmors. Normal heart sounds. Lateral radial pulses 2/4 and equal. 1+ pitting lower extremity edema to the level of the proximal tibia with venous stasis changes in the distal two thirds of the tibia. Abdomen: Obese. Bowel sounds present normoactive x-4 quadrants. Abdomen is soft, nondistended, and nontender. Musculoskeletal: Spontaneously moving all extremities. Strength 5/5 and equal in upper and lower extremity is. Skin: warm, dry, intact. Neuro: Alert and oriented x4. Sensation light touch intact. Psych: Patient's affect is appropriate for situation. Course Course Narrative: EKG dated 28 Aug 2017 at 17:23 interpreted as sinus rhythm with a rate of 73. Normal intervals. Left axis. Nonspecific ST-T changes. Compared to previous dated 12/29/2016 show no acute ischemic changes or comparison. Chart check shows no cardiac history at this facility. Patient's wheezing has improved after nebulizers. He had no bibasilar crackles. Chest x-ray concerning for pulmonary vascular congestion consistent with his orthopnea and history of CHF. I discussed the patient with having hospitalist, Dr. Grullon, who agrees to accept the patient for continued evaluation and management for congestive heart failure as well as acute exacerbation of COPD. Vital Signs Temperature 97.9 F 08/28/17 17:11 Pulse Rate 78 08/28/17 17:11 Respiratory Rate 20 08/28/17 17:11 Blood Pressure 133/78 08/28/17 17:11 O2 Sat by Pulse Oximetry 95 08/28/17 17:11 Temperature 97.9 F 08/28/17 17:19 Pulse Rate 72 08/28/17 18:10 Respiratory Rate 16 08/28/17 18:10 Blood Pressure 115/52 08/28/17 18:10 O2 Sat by Pulse Oximetry 94 08/28/17 18:10 Oxygen Delivery Oxygen Delivery Room Air Medical Decision Making - Lab Data Result diagrams: 08/28/17 17:50 08/28/17 17:50 Lab Results 08/28/17 08/28/17 08/28/17 Range/Units 17:50 17:50 17:50 WBC 9.8 (4.3-11.1) K/mcL RBC 5.12 (4.19-5.50) M/mcL Hgb 14.3 (12.9-16.9) g/dL Hct 45.0 (37.5-50.1) % MCV 87.9 (83.0-100.0) fL MCH 27.9 L (28.0-33.3) pg MCHC 31.8 (31.6-35.5) g/dL RDW 16.1 H (11.5-14.5) % Plt Count 191 (140-400) K/mcL MPV 10.7 (9.4-12.4) fL Immature Gran % 0.2 (0-4) % Seg Neutrophils % 62.6 % Lymphocytes % 30.6 % Monocytes % 5.8 % Eosinophils % 0.5 % Basophils % 0.3 % Neutrophils # 6.1 (1.6-8.9) K/mcL Lymphocytes # 3.0 (0.6-4.6) K/mcL Monocytes # 0.6 (0.0-1.3) K/mcL Eosinophils # 0.1 (0.0-0.6) K/mcL Basophils # 0.0 (0.0-0.2) K/mcL PT 23.3 H (9.4-12.1) Seconds INR 2.1 Sodium 136 (136-145) mEq/L Potassium 4.1 (3.5-5.1) mEq/L Chloride 102 (98-107) mEq/L Carbon Dioxide 27 (23-29) mEq/L BUN 16 (8-23) mg/dL Creatinine 0.82 (0.70-1.30) mg/dL Est GFR ( Amer) > 60 (> 60) Est GFR (Non-Af Amer) > 60 (> 60) BUN/Creatinine Ratio 20 (6-26) Glucose 136 H (70-105) mg/dL Calculated Osmolality 285 (280-300) Calcium 9.1 (8.6-10.3) mg/dL Troponin I < 0.03 (< 0.04) ng/mL B-Natriuretic Peptide (Less than 100) pg/mL 08/28/17 Range/Units 17:50 WBC (4.3-11.1) K/mcL RBC (4.19-5.50) M/mcL Hgb (12.9-16.9) g/dL Hct (37.5-50.1) % MCV (83.0-100.0) fL MCH (28.0-33.3) pg MCHC (31.6-35.5) g/dL RDW (11.5-14.5) % Plt Count (140-400) K/mcL MPV (9.4-12.4) fL Immature Gran % (0-4) % Seg Neutrophils % % Lymphocytes % % Monocytes % % Eosinophils % % Basophils % % Neutrophils # (1.6-8.9) K/mcL Lymphocytes # (0.6-4.6) K/mcL Monocytes # (0.0-1.3) K/mcL Eosinophils # (0.0-0.6) K/mcL Basophils # (0.0-0.2) K/mcL PT (9.4-12.1) Seconds INR Sodium (136-145) mEq/L Potassium (3.5-5.1) mEq/L Chloride (98-107) mEq/L Carbon Dioxide (23-29) mEq/L BUN (8-23) mg/dL Creatinine (0.70-1.30) mg/dL Est GFR ( Amer) (> 60) Est GFR (Non-Af Amer) (> 60) BUN/Creatinine Ratio (6-26) Glucose (70-105) mg/dL Calculated Osmolality (280-300) Calcium (8.6-10.3) mg/dL Troponin I (< 0.04) ng/mL B-Natriuretic Peptide 52 (Less than 100) pg/mL Attestation Statement - Attestation Attestation: I, Win Warner DO, examined this patient [id number] and my medical decision-making was reviewed with Dr. Kerwin Busby, Resident Physician. I agree with the documented findings, disposition and treatment plan as described except to the extent set forth below. Please see my progress notes for details.
[2017-08-28] MEDS ORDERED: Ipratropium/Albuterol Neb 3 ML IH ONE (17:49)
[2017-08-28 18:11] LABS: Basophils % 0.3 %; Eosinophils # 0.1 K/mcL (0.0-0.6); Eosinophils % 0.5 %; Hemoglobin 14.3 g/dL (12.9-16.9); Immature Granulocytes % 0.2 % (0-4); Lymphocytes % 30.6 %; Mean Corpuscular HGB Conc 31.8 g/dL (31.6-35.5); Mean Corpuscular Hemoglobin 27.9 pg (28.0-33.3); Mean Corpuscular Volume 87.9 fL (83.0-100.0); Mean Platelet Volume 10.7 fL (9.4-12.4); Monocytes # 0.6 K/mcL (0.0-1.3); Monocytes % 5.8 %; Neutrophils # 6.1 K/mcL (1.6-8.9); Platelet Count 191 K/mcL (140-400); Red Blood Count 5.12 M/mcL (4.19-5.50); Red Cell Distribution Width 16.1 % (11.5-14.5); Segmented Neutrophils % 62.6 %
[2017-08-28 18:14] LABS: INR 2.1; Prothrombin Time 23.3 Seconds (9.4-12.1)
--- NOTE | 2017-08-28 18:32 | Emergency Department Note ---
Disposition Clinical Impression: Acute exacerbation of chronic obstructive airways disease Acute exacerbation of CHF (congestive heart failure) Qualifiers: Heart failure type: unspecified Qualified Code(s): I50.9 - Heart failure, unspecified Disposition: Admitted As Inpatient Condition: Fair Referrals: Fartun Quinones, [employer] [Primary Care Provider] - Forms: ED Satisfaction Letter Time of Disposition: 19:19 General Adult HPI - General Chief complaint: ED Shortness of Breath/Dyspnea Stated complaint: Shortness of Breath, Eye Problem Time Seen by Provider: 08/28/17 17:15 - History of Present Illness Pain Scale: 5 - Related Data Home Medications Medication Instructions Recorded Confirmed Albuterol Sulfate [Albuterol 2 puff IH Q4H PRN 08/04/16 12/26/16 Inhaler] Docusate Sodium [Stool Softener] 100 mg PO BID PRN 08/04/16 12/26/16 FLUoxetine HCl [Prozac] 20 mg PO DAILY 08/04/16 12/26/16 Fenofibrate Nanocrystallized 48 mg PO DAILY 08/04/16 12/26/16 [Tricor] Gabapentin [Neurontin] 600 mg PO TID PRN 08/04/16 12/26/16 LORazepam [Ativan] 0.5 mg PO DAILY PRN 08/04/16 12/26/16 Metformin HCl [Glucophage] 1,000 mg PO BID 08/04/16 12/26/16 Nitroglycerin [Nitrostat] 0.4 mg SL Q5M PRN 08/04/16 12/26/16 Omeprazole [PriLOSEC] 20 mg PO BIDAC 08/04/16 12/26/16 Oxycodone HCl/Acetaminophen 1 each PO Q6H PRN 08/04/16 12/26/16 [Percocet 7.5-325 mg Tablet] Pentoxifylline [TRENtal] 400 mg PO BID 08/04/16 12/26/16 Potassium Chloride [K-Tab ER] 20 meq PO DAILY 08/04/16 12/26/16 Pravastatin Sodium [Pravachol] 40 mg PO HS 08/04/16 12/26/16 Levothyroxine Sodium [Synthroid] 200 mcg PO DAILY 12/26/16 12/26/16 Previous Rx's Medication Instructions Recorded Carvedilol [Coreg] 6.25 mg PO BIDWM #60 tab 01/01/17 Furosemide [Lasix] 40 mg PO BID #60 tab 01/01/17 Warfarin perPT [Coumadin perPT] 10 mg PO 1800 #30 tablet 01/01/17 Allergies Allergy/AdvReac Type Severity Reaction Status Date / Time Amoxicillin [From Augmentin] Allergy Palpitation Verified 08/04/16 13:05 s clavulanic acid Allergy Palpitation Verified 08/04/16 13:05 [From Augmentin] s meperidine [From Demerol] Allergy Palpitation Verified 08/04/16 13:05 s sulfamethoxazole Allergy Rash Verified 08/04/16 13:05 [From Bactrim] trimethoprim [From Bactrim] Allergy Rash Verified 08/04/16 13:05 Past Medical History - Past Medical History Medical history: Reports: asthma, atrial fibrillation, CHF, COPD, diabetes, myocardial infarction, peripheral artery disease, thyroid disease, other Surgical history: Reports: angioplasty/stent, orthopedic, other Psychiatric history: Reports: no psych history - Social History Smoking Status: Current every day smoker Smokeless Tobacco Status: No Alcohol use: Reports: rarely Drug use: Reports: none Physical Exam - General General appearance: alert, in no apparent distress Course Vital Signs Temperature 97.9 F 08/28/17 17:11 Pulse Rate 78 08/28/17 17:11 Respiratory Rate 20 08/28/17 17:11 Blood Pressure 133/78 08/28/17 17:11 O2 Sat by Pulse Oximetry 95 08/28/17 17:11 Temperature 97.9 F 08/28/17 17:19 Pulse Rate 72 08/28/17 18:10 Respiratory Rate 16 08/28/17 18:10 Blood Pressure 115/52 08/28/17 18:10 O2 Sat by Pulse Oximetry 94 08/28/17 18:10 Oxygen Delivery Oxygen Delivery Room Air Medical Decision Making - Lab Data Result diagrams: 08/28/17 17:50 08/28/17 17:50 Lab Results 08/28/17 08/28/17 08/28/17 Range/Units 17:50 17:50 17:50 WBC 9.8 (4.3-11.1) K/mcL RBC 5.12 (4.19-5.50) M/mcL Hgb 14.3 (12.9-16.9) g/dL Hct 45.0 (37.5-50.1) % MCV 87.9 (83.0-100.0) fL MCH 27.9 L (28.0-33.3) pg MCHC 31.8 (31.6-35.5) g/dL RDW 16.1 H (11.5-14.5) % Plt Count 191 (140-400) K/mcL MPV 10.7 (9.4-12.4) fL Immature Gran % 0.2 (0-4) % Seg Neutrophils % 62.6 % Lymphocytes % 30.6 % Monocytes % 5.8 % Eosinophils % 0.5 % Basophils % 0.3 % Neutrophils # 6.1 (1.6-8.9) K/mcL Lymphocytes # 3.0 (0.6-4.6) K/mcL Monocytes # 0.6 (0.0-1.3) K/mcL Eosinophils # 0.1 (0.0-0.6) K/mcL Basophils # 0.0 (0.0-0.2) K/mcL PT 23.3 H (9.4-12.1) Seconds INR 2.1 Sodium 136 (136-145) mEq/L Potassium 4.1 (3.5-5.1) mEq/L Chloride 102 (98-107) mEq/L Carbon Dioxide 27 (23-29) mEq/L BUN 16 (8-23) mg/dL Creatinine 0.82 (0.70-1.30) mg/dL Est GFR ( Amer) > 60 (> 60) Est GFR (Non-Af Amer) > 60 (> 60) BUN/Creatinine Ratio 20 (6-26) Glucose 136 H (70-105) mg/dL Calculated Osmolality 285 (280-300) Calcium 9.1 (8.6-10.3) mg/dL Troponin I < 0.03 (< 0.04) ng/mL B-Natriuretic Peptide (Less than 100) pg/mL 08/28/17 Range/Units 17:50 WBC (4.3-11.1) K/mcL RBC (4.19-5.50) M/mcL Hgb (12.9-16.9) g/dL Hct (37.5-50.1) % MCV (83.0-100.0) fL MCH (28.0-33.3) pg MCHC (31.6-35.5) g/dL RDW (11.5-14.5) % Plt Count (140-400) K/mcL MPV (9.4-12.4) fL Immature Gran % (0-4) % Seg Neutrophils % % Lymphocytes % % Monocytes % % Eosinophils % % Basophils % % Neutrophils # (1.6-8.9) K/mcL Lymphocytes # (0.6-4.6) K/mcL Monocytes # (0.0-1.3) K/mcL Eosinophils # (0.0-0.6) K/mcL Basophils # (0.0-0.2) K/mcL PT (9.4-12.1) Seconds INR Sodium (136-145) mEq/L Potassium (3.5-5.1) mEq/L Chloride (98-107) mEq/L Carbon Dioxide (23-29) mEq/L BUN (8-23) mg/dL Creatinine (0.70-1.30) mg/dL Est GFR ( Amer) (> 60) Est GFR (Non-Af Amer) (> 60) BUN/Creatinine Ratio (6-26) Glucose (70-105) mg/dL Calculated Osmolality (280-300) Calcium (8.6-10.3) mg/dL Troponin I (< 0.04) ng/mL B-Natriuretic Peptide 52 (Less than 100) pg/mL Attestation Statement - Attestation Attestation: I, Win Warner DO, examined this patient [id number] and my medical decision-making was reviewed with (Dr. Kerwin Busby), Resident Physician. I agree with the documented findings, disposition and treatment plan as described except to the extent set forth below. Please see my progress notes for details. 62-year-old male presents to the emergency room for evaluation of increased work of breathing and shortness of breath. Patient long-standing history of CHF. Patient denies any trauma or injury. He has a history of renal insufficiency secondary to significantly elevated doses of Lasix. Patient is currently on a diuretic at this time home and he has been diuresing appropriately or at his baseline. Patient denies any medication changes. Denies any recent illnesses. Currently denying chest pain fevers chills nausea vomiting or diarrhea. Denies any headache or vision change. Patient still has shortness of breath that is orthopneic and presentation worse with lying flat or moving. EKG chest x-ray labs including CBC chemistry troponin and BNP will be collected. Patient's renal function will be addressed. Breathing treatments will be applied at this time considering does have an underlying history of COPD. He does typically intermittently uses oxygen at night but he is felt that he has had uses oxygen almost every night for extended periods of time in comparison to intermittent use like he has previously. Patient will have further workup and treatment course completed here in the emergency room. Disposition to be determined once full workup is completed. Patient does have increased work of breathing his lungs had intermittent wheezing bilaterally but no coarse crackles on auscultation. Heart is regular. Patient does have pitting edema in the lower extremities does appear to be worse according to him. He has no asymmetry to the extremities at this point. Vital signs are reviewed and are stable. Patient is resting comfortably in the bed. See detailed documentation of the physical exam, medical intervention, medical decision-making and disposition in the resident physician's note. Patient will be addressed for cardiac versus pulmonary source the symptoms are today and then determine whether or not he is given full going home. We will continue to monitor here in the emergency room as a screening process is completed. local care by the patient's treatment course of this time 1900 Chest x-ray shows pulmonary congestion. Patient does have some moderate resolution of the wheezing on evaluation of this time he still has orthopnea. Patient has to sit upright at the site of the bed to help with his breathing issues. The remainder of his evaluation is otherwise unremarkable. Patient will be admitted for diuresis and stabilization what appears to be chronic CHF exacerbation of fluid accumulation the bilateral lungs. Patient was discussed and contacted with the hospitalist. No other recommendations or issues noted at this time. Patient otherwise currently stable will be admitted this time. We will continue monitor in emergency room until admission process is completed. No critical care applied to the patient's treatment course at this time.
[2017-08-28 18:33] LABS: BUN/Creatinine Ratio 20 (6-26); Blood Urea Nitrogen 16 mg/dL (8-23); Calcium 9.1 mg/dL (8.6-10.3); Carbon Dioxide 27 mEq/L (23-29); Chloride 102 mEq/L (98-107); Glucose 136 mg/dL (70-105); Osmolality,Calculated 285 (280-300); Potassium 4.1 mEq/L (3.5-5.1); Sodium 136 mEq/L (136-145); eGFR For African Americans > 60 (> 60); eGFR For Non-African Americans > 60 (> 60)
[2017-08-28 18:34] LABS: Troponin I < 0.03 ng/mL (< 0.04)
[2017-08-28] MEDS ORDERED: Furosemide 40 MG/4 ML VIAL IVP ONE (19:08)
[2017-08-28] MEDS ORDERED: Naloxone 0.4 MG/ML INJ IVP PRN (20:47)
[2017-08-28] MEDS ORDERED: Acetaminophen 325 MG TABLET PO PRN (20:47)
[2017-08-28] MEDS ORDERED: Gabapentin 300 MG CAPSULE PO PRN (20:49)
[2017-08-28] MEDS ORDERED: Dextrose Gel 15 GM/37.5 ML TUBE PO PRN ×2 (20:50)
[2017-08-28] MEDS ORDERED: D5% in Water 1,000 ML IVC PRN (20:50)
[2017-08-28] MEDS ORDERED: *HR* Dextrose 50 % in Water (Syg) 50 ML SYRINGE IVP PRN (20:50)
--- NOTE | 2017-08-28 20:55 | Internal Med History&Physical ---
Date of Encounter: 08/28/17 Time of Encounter: 20:00 Internal Medicine - H&P: HPI Chief complaint: Shortness of breath Admitted From: Emergency Dept Plans for Post Hospital Care: Home History of present illness: Mr. Davila is a 62 year old morbidly obese male with h/o- COPD, CHF, presents with c/o- dizziness and dyspnea. He reports some exertional dyspnea at baseline due to underlying lung and heart conditions, but his shortness of breath has been getting progressively worse for the past 1.5 weeks. He has dizziness and weakness on walking a few steps, along with vision changes and feels very tired. He has associated dry cough, subjective fevers and chills. No chest pain, palpitations. He also has chronic leg swelling, which he thinks is getting worse. Of note, he has home BiPAP, which has not been functional and he is waiting for it to be fixed. Past Med Surg Social Fam HX - Past Medical History Medical history: asthma, atrial fibrillation, CHF, COPD, coronary artery disease , diabetes, myocardial infarction, peripheral artery disease, thyroid disease, other Psychiatric history: no psych history - Past Surgical History Surgical History: angioplasty/stent, orthopedic, other (left hand surgery) - Social History Smoking Status: Current every day smoker Packs per day: 0.5 Smokeless Tobacco Status: No Alcohol use: rarely Drug use: none Occupational status: disabled Current living situation: Home - Independent Activity Level: Uses cane/walker Recent Out of Country Travel Within the Last 8 Weeks: No Exposure or Possible Exposure to Illness During Travel: No - Family History Mother Family Member Ethnicity: Non- Living Status: Hx Family Cardiac Disorders: No Hx Family Respiratory Disorders: No Father Family Member Ethnicity: Non- Living Status: Hx Family Cardiac Disorders: No Hx Family Respiratory Disorders: No Hx Family Cancer: Yes (Pancreatic) Brother Family Member Ethnicity: Non- Living Status: Still Living Hx Family Cardiac Disorders: Yes (HD, Pacemaker) Sister Family Member Ethnicity: Non- Living Status: Still Living Internal Medicine - H&P: Meds Albuterol Sulfate [Albuterol Inhaler] 2 puff IH Q4H PRN 08/04/16 [History] Docusate Sodium [Stool Softener] 100 mg PO BID PRN 08/04/16 [History] FLUoxetine HCl [Prozac] 20 mg PO DAILY 08/04/16 [History] Gabapentin [Neurontin] 600 mg PO TID PRN 08/04/16 [History] LORazepam [Ativan] 0.5 mg PO DAILY PRN 08/04/16 [History] Metformin HCl [Glucophage] 1,000 mg PO BID 08/04/16 [History] Nitroglycerin [Nitrostat] 0.4 mg SL Q5M PRN 08/04/16 [History] Omeprazole [PriLOSEC] 20 mg PO BIDAC 08/04/16 [History] Oxycodone HCl/Acetaminophen [Percocet 7.5-325 mg Tablet] 1 each PO Q6H PRN 08/04 [History] Pentoxifylline [TRENtal] 400 mg PO BID 08/04/16 [History] Potassium Chloride [K-Tab ER] 20 meq PO DAILY 08/04/16 [History] Pravastatin Sodium [Pravachol] 40 mg PO HS 08/04/16 [History] Levothyroxine Sodium [Synthroid] 275 mcg PO DAILY 12/26/16 [History] Carvedilol [Coreg] 6.25 mg PO BIDWM #60 tab 01/01/17 [Rx] Warfarin perPT [Coumadin perPT] 10 mg PO 1800 #30 tablet 01/01/17 [Rx] Budesonide/Formoterol 160/4.5 [Symbicort 160/4.5] 2 puff IH BIDR 08/28/17 [ History] Cyclobenzaprine [Flexeril] 10 mg PO TID 08/28/17 [History] Furosemide [Lasix] 80 mg PO BID 08/28/17 [History] 3 Allergy/AdvReac Type Severity Reaction Status Date / Time Amoxicillin [From Augmentin] Allergy Palpitation Verified 08/04/16 13:05 s clavulanic acid Allergy Palpitation Verified 08/04/16 13:05 [From Augmentin] s meperidine [From Demerol] Allergy Palpitation Verified 08/04/16 13:05 s sulfamethoxazole Allergy Rash Verified 08/04/16 13:05 [From Bactrim] trimethoprim [From Bactrim] Allergy Rash Verified 08/04/16 13:05 All Systems PM: A 10-system review of systems was performed and is negative for pertinent findings except as documented above in the HPI. - Constitutional Constitutional: malaise, weakness, no chills, no fever(s), no night sweats - EENT Eyes: blurry vision Ears: no ear discharge, no ear pain, no tinnitus Nose, mouth and throat: no dysphagia, no nasal discharge, no neck pain, no sore throat - Cardiovascular Cardiovascular ROS IM: dyspnea on exertion, edema, lightheadedness - Respiratory Respiratory: cough - Gastrointestinal Gastrointestinal: no abdominal pain, no diarrhea, no hematemesis, no hematochezia, no melena, no nausea, no vomiting - Musculoskeletal Musculoskeletal ROS IM: no numbness, no tingling - Integumentary Integumentary IM: no rash, no unusual bruising - Neurological Neurological ROS: no confusion, no convulsions, no focal weakness, no numbness, no tingling, no tremor(s) - Hematologic/Lymphatic Hematologic/Lymphatic: no easy bruising - Constitutional Vitals: Temp Pulse Resp BP Pulse Ox 97.9 F 72 20 98/56 94 08/28/17 17:19 08/28/17 18:10 08/28/17 19:55 08/28/17 19:55 08/28/17 18:10 General appearance: Present: A&O X 3, morbidly obese, answers questions appropriately - Respiratory Respiratory exam: Present: CTAB (coarse breath sounds B/L), wheezes (mild end expiratory wheezing posteriorly). Absent: accessory muscle use, rales, rhonchi - Cardiovascular Cardiovascular exam: Present: RRR, +S1, +S2. Absent: diastolic murmur, gallop, rubs, systolic murmur - GI/Abdominal GI/Abdominal exam: Present: normal bowel sounds, soft (obese), no peritoneal signs. Absent: distended, tenderness - Extremities Exam Extremities exam: Present: full ROM, pedal edema (chronic pedal edema with chronic skin thickening), warm, radial pulses palpable and symmetrical. Absent : calf tenderness, cyanotic - Neurological Exam Neurological exam: Present: CN II-XII intact, oriented X3, no focal deficits. Absent: pronater drift, facial droop, speech deficit - Skin Skin exam: Present: dry, intact Internal Med - H&P Results - Labs CBC & Chem 7: 08/28/17 17:50 08/28/17 17:50 - EKG Data -: EKG Interpreted by Myself EKG shows normal: sinus rhythm Rate: normal - Assessment and plan (1) Acute exacerbation of CHF (congestive heart failure) Current Visit: Yes Status: Acute Assessment and plan: presents with worsening dyspnea and leg swelling. Continue Telemetry, trend Troponins; diuresis with IV Lasix, fluid restriction, urine output monitoring. Continue beta alf. Echo from 12/2016 showed preserved EF, mild LV diastolic dysfunction, concentric LVH; will repeat TTE; Qualifiers: Heart failure type: diastolic Qualified Code(s): I50.9 - Heart failure, unspecified (2) Diabetes mellitus Current Visit: Yes Status: Chronic Assessment and plan: blood sugars noted to be well-controlled; Accucheck blood glucose monitoring with sliding scale insulin. Diabetic diet. 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 transplanted heart: [place] heart Associated angina: without angina Qualified Code(s): I25.10 - Atherosclerotic heart disease of [place] coronary artery without angina pectoris (7) BECK (obstructive sleep apnea) Current Visit: Yes Status: Chronic Assessment and plan: patient needs to repeat outpatient sleep studies and get a new working CPAP/ BiPap; (8) Tobacco abuse counseling Current Visit: Yes Status: Chronic Assessment and plan: Smoking cessation counseling given; patient understands the risks of smoking and will consider quitting; Nicotine TD patch as needed; (9) COPD (chronic obstructive pulmonary disease) Current Visit: Yes Status: Chronic Assessment and plan: does not appear to be in acute exacerbation. Continue breathing treatments, ICS/ LABA, supplemental O2; Qualifiers: COPD type: unspecified COPD Qualified Code(s): J44.9 - Chronic obstructive pulmonary disease, unspecified (10) Chronic respiratory failure with hypoxia Current Visit: Yes Status: Chronic Assessment and plan: on home O2 due to underlying COPD and CHF; (11) Afib Current Visit: Yes Status: Chronic Assessment and plan: rate-controlled; continue beta alf and anticoagulation with Coumadin; INR is therapeutic. Qualifiers: Atrial fibrillation type: paroxysmal Qualified Code(s): I48.0 - Paroxysmal atrial fibrillation - Time Spent With Patient Total time spent is greater than 50% in coordination of care (as documented) at patient's floor/unit and/or counseling patient:
[2017-08-28] MEDS: Furosemide 40 MG/4 ML VIAL IVP SCH (21:17)
[2017-08-28] MEDS: Insulin LISPRO 300 UNITS/3 ML VIAL SQ SCH (21:18)
[2017-08-28] MEDS: Budesonide/Formoterol 160/4.5 MDI IH SCH (21:30)
[2017-08-28] MEDS: Ipratropium/Albuterol Neb 3 ML IH PRN (21:36)
[2017-08-28] MEDS: *HR* OxyCODONE/APAP 7.5/325 TABLET PO PRN (22:03)
[2017-08-29 05:17] LABS: Basophils % 0.3 %; Eosinophils # 0.1 K/mcL (0.0-0.6); Hematocrit 41.4 % (37.5-50.1); Hemoglobin 13.2 g/dL (12.9-16.9); Immature Granulocytes % 0.3 % (0-4); Lymphocytes # 4.1 K/mcL (0.6-4.6); Lymphocytes % 37.8 %; Mean Corpuscular HGB Conc 31.9 g/dL (31.6-35.5); Mean Corpuscular Hemoglobin 27.8 pg (28.0-33.3); Mean Corpuscular Volume 87.3 fL (83.0-100.0); Mean Platelet Volume 10.9 fL (9.4-12.4); Monocytes % 9.1 %; Neutrophils # 5.6 K/mcL (1.6-8.9); Platelet Count 160 K/mcL (140-400); Red Blood Count 4.74 M/mcL (4.19-5.50); Red Cell Distribution Width 16.2 % (11.5-14.5); Segmented Neutrophils % 51.5 %
[2017-08-29 05:21] LABS: INR 2.2; Prothrombin Time 24.2 Seconds (9.4-12.1)
[2017-08-29 05:36] LABS: BUN/Creatinine Ratio 21 (6-26); Blood Urea Nitrogen 16 mg/dL (8-23); Carbon Dioxide 28 mEq/L (23-29); Chloride 101 mEq/L (98-107); Glucose 101 mg/dL (70-105); Magnesium 2.1 mg/dL (1.6-2.6); Osmolality,Calculated 285 (280-300); Potassium 3.7 mEq/L (3.5-5.1); Sodium 137 mEq/L (136-145); eGFR For African Americans > 60 (> 60); eGFR For Non-African Americans > 60 (> 60)
[2017-08-29] MEDS: LEVOTHYROXINE PO SCH (06:10)
[2017-08-29] MEDS ORDERED: Perflutren Lipid Microsphere 1.3 ML in 0.9 % Sodium Chloride 8.7 ML IVP ONE (07:13)
[2017-08-29] MEDS: Budesonide/Formoterol 160/4.5 MDI IH SCH ×2 (07:56→19:58)
[2017-08-29] MEDS: Insulin LISPRO 300 UNITS/3 ML VIAL SQ SCH ×4 (08:20→21:22)
[2017-08-29] MEDS: FLUoxetine 20 MG CAPSULE PO SCH (08:32)
[2017-08-29] MEDS: Furosemide 40 MG/4 ML VIAL IVP SCH ×2 (08:32→16:29)
[2017-08-29] MEDS ORDERED: LEVOTHYROXINE SODIUM 275 MCG PO SCH (09:00)
[2017-08-29] MEDS: *HR* LORazepam 0.5 MG TABLET PO PRN (12:36)
--- NOTE | 2017-08-29 15:46 | Internal Med Progress Note ---
Date of Encounter: 08/29/17 Time of Encounter: 15:48 - Assessment and plan (1) Acute exacerbation of CHF (congestive heart failure) Current Visit: Yes Status: Acute Assessment and plan: presents with worsening dyspnea and leg swelling. 12/2016 TTE showed preserved EF , mild LV diastolic dysfunction, concentric LVH; will repeat TTE. Repeat TTE with EF 65%, normal diastolic dysfunction and no valvular dysfunction. Clinically appears overloaded with SOB, rales and lower extremity edema on exam. Continue diuresis with IV Lasix. Strict I&O's, daily weights Qualifiers: Heart failure type: diastolic Qualified Code(s): I50.9 - Heart failure, unspecified (2) COPD (chronic obstructive pulmonary disease) Current Visit: Yes Status: Chronic Assessment and plan: hx COPD with chronic respiratory failure; on oxygen at home. With wheezing and mild dyspnea on exam. CXR without evidence of infiltrate. Start IV ceftriaxone , azithromycin and steroid bursts. Continue bronchodilators. Qualifiers: COPD type: unspecified COPD Qualified Code(s): J44.9 - Chronic obstructive pulmonary disease, unspecified (3) Afib Current Visit: Yes Status: Chronic Assessment and plan: rate-controlled; continue beta alf and anticoagulation with Coumadin; INR is therapeutic. Qualifiers: Atrial fibrillation type: paroxysmal Qualified Code(s): I48.0 - Paroxysmal atrial fibrillation (4) Chronic respiratory failure with hypoxia Current Visit: Yes Status: Chronic Assessment and plan: on home O2 due to underlying COPD and CHF; (5) Tobacco abuse counseling Current Visit: Yes Status: Chronic Assessment and plan: current smoker; cessation advised. Nicotine TD patch as needed (6) CAD (coronary artery disease) Current Visit: Yes Status: Chronic Assessment and plan: per hx. Asymptomatic, denied chest pain. Serial troponin negative. EKG without acute ST changes. Cont home coumadin. statin, BB Qualifiers: Coronary Disease-Associated Artery/Lesion type: [place] artery [place] vs. transplanted heart: [place] heart Associated angina: without angina Qualified Code(s): I25.10 - Atherosclerotic heart disease of [place] coronary artery without angina pectoris (7) BECK (obstructive sleep apnea) Current Visit: Yes Status: Chronic Assessment and plan: patient needs to repeat outpatient sleep studies and get a new working CPAP/ BiPap; (8) Diabetes mellitus Current Visit: Yes Status: Chronic Assessment and plan: per hx. Control unknown. Holding home oral hypoglycemics. SSI. Monitor blood sugar and titrate PRN. Hgb A1c pending Qualifiers: Diabetes mellitus type: type 2 Diabetes mellitus remote computer terminal operator insulin use: with remote computer terminal operator use Diabetes mellitus complication status: with unspecified complications Qualified Code(s): E11.8 - Type 2 diabetes mellitus with unspecified complications; Z79.4 - intermediate accountant (current) use of insulin; Z79.4 - intermediate accountant (current) use of insulin; Z79.4 - intermediate accountant (current) use of insulin; Z79.4 - [facility] (current) use of insulin (9) PAD (peripheral artery disease) Current Visit: Yes Status: Chronic Assessment and plan: per hx. Cont home coumdin, BB, statin (10) Hypothyroidism Current Visit: Yes Status: Chronic Assessment and plan: resume Levothyroxine; Qualifiers: Hypothyroidism type: unspecified Qualified Code(s): E03.9 - Hypothyroidism , unspecified (11) Morbid obesity Current Visit: Yes Status: Chronic Assessment and plan: BMI 58, weight 180 kg. Lifestyle and dietary modifications recommended. - Time Spent With Patient Total time spent is greater than 50% in coordination of care (as documented) at patient's floor/unit and/or counseling patient: - Subjective Interval history: Seen and examined at bedside. Patient is new to me. Information obtained from chart review and patient report. Says he still short of breath just worse with exertion. No chest pain. Says swelling in legs is a little bit better. Reports medication and dietary compliance. No chest pain - Constitutional Vitals: Temp Pulse Resp BP Pulse Ox 97.9 F 76 18 147/82 97 08/29/17 15:38 08/29/17 15:38 08/29/17 15:38 08/29/17 15:38 08/29/17 15:38 General appearance: Present: A&O X 3, morbidly obese, answers questions appropriately - Head Head exam: Present: atraumatic, normocephalic - Eye Eye exam: Present: PERRL, conjuntiva pink, sclera anicteric Pupils: Present: PERRL - Neck Neck exam general surgery: Present: supple, trachea midline. Absent: lymphadenopathy - Respiratory Respiratory exam: Present: CTAB, wheezes. Absent: accessory muscle use, rales, rhonchi - Cardiovascular Cardiovascular exam: Present: RRR, +S1, +S2. Absent: diastolic murmur, gallop, rubs, systolic murmur - GI/Abdominal GI/Abdominal exam: Present: normal bowel sounds, soft, no peritoneal signs. Absent: distended, tenderness - Extremities Exam Extremities exam: Present: pedal edema, warm, radial pulses palpable and symmetrical. Absent: calf tenderness, cyanotic - Neurological Exam Neurological exam: Present: CN II-XII intact, oriented X3, no focal deficits. Absent: pronater drift, facial droop, speech deficit - Skin Skin exam: Present: dry, intact Internal Medicine: Result - Labs CBC & Chem 7: 08/29/17 03:54 08/29/17 03:54 Labs: Short CBC 08/29/17 Range/Units 03:54 WBC 10.8 (4.3-11.1) K/mcL Hgb 13.2 (12.9-16.9) g/dL Hct 41.4 (37.5-50.1) % Plt Count 160 (140-400) K/mcL Neutrophils # 5.6 (1.6-8.9) K/mcL BMP 08/29/17 03:54 Sodium 137 Potassium 3.7 Chloride 101 Carbon Dioxide 28 BUN 16 Creatinine 0.76 Glucose 101 Calcium 9.0 Cardiac Enzymes 08/28/17 08/29/17 Range/Units 21:23 03:54 Troponin I < 0.03 < 0.03 (< 0.04) ng/mL - ABG Interpretation ABG results: PT/INR, D-dimer PT 24.2 Seconds (9.4-12.1) H 08/29/17 03:54 - Impressions Impressions Echocardiogram 08/29/17 20:53 Impressions: LVEF 65-70%. No pulmonary hypertension. Normal left ventricular diastolic function. No significant valvular dysfunction. Left Ventricular Wall Motion: Rest Echo Findings The apex, apical inferior, mid inferior, basal inferior, apical anterior, mid anterior, basal anterior, apical septal, mid inferior septal, basal inferior septal, apical lateral, mid anterior lateral, basal anterior lateral, mid anterior septal, mid inferior lateral, basal anterior septal and basal inferior lateral [place] were hyperkinetic. Findings: Study Quality * Technically adequate exam. Right Ventricle * Normal right ventricular structure and function. Right Atrium * Normal right atrial size. Mitral Valve * Normal mitral valve structure and function. Interatrial Septum * No evidence of PFO by color Doppler. Aorta * Normally sized aortic root. Pericardium * The pericardium appears normal. Tricuspid Valve * Trace tricuspid regurgitation. * No tricuspid stenosis. * Estimated RVSP is 25 mmHg. * No pulmonary hypertension. Aortic Valve * No aortic regurgitation. * No aortic stenosis. * Aortic valve not well visualized. Pulmonic Valve * No pulmonic regurgitation. * No pulmonic stenosis. Left Ventricle * LVEF 65-70%. * Normal left ventricular diastolic function. * No segmental dysfunction. Left Atrium * Mildly dilated left atrium. Consult Discharge Plan - Plan Referrals: Fartun Quinones, [facility] [employer] [Primary Care Provider] -
[2017-08-29] MEDS: predniSONE 20 MG TABLET PO SCH (16:29)
[2017-08-29] MEDS: Azithromycin 500 MG in D5% in Water 250 ML IVPB SCH (16:54)
[2017-08-29] MEDS: cefTRIAXone 1,000 MG in Water for inj. (sterile) 20 ML 10 ML IVP SCH (16:55)
[2017-08-29] MEDS ORDERED: *HR* Warfarin 10 MG TABLET PO ONE (18:00)
[2017-08-29] MEDS: Warfarin perPT PO SCH (18:11)
[2017-08-29] MEDS: *HR* OxyCODONE/APAP 7.5/325 TABLET PO PRN (19:54)
[2017-08-29 21:04] LABS: Adenovirus Not Detected (Not Detect); Bordetella Pertussis Not Detected (Not Detect); Chlamydophila pneumoniae Not Detected (Not Detect); Coronavirus 229E Not Detected (Not Detect); Coronavirus HKU1 Not Detected (Not Detect); Coronavirus NL63 Not Detected (Not Detect); Coronavirus OC43 Not Detected (Not Detect); Human Metapneumovirus Not Detected (Not Detect); Human Rhinovirus/Enterovirus Not Detected (Not Detect); Influenza A Subtype 2009 H1 Not Detected (Not Detect); Influenza A Untypeable Not Detected (Not Detect); Influenza B Not Detected (Not Detect); Mycoplasma pneumoniae Not Detected (Not Detect); Parainfluenza Virus 1 Not Detected (Not Detect); Parainfluenza Virus 2 Not Detected (Not Detect); Parainfluenza Virus 3 Not Detected (Not Detect); Parainfluenza Virus 4 Not Detected (Not Detect); Respiratory Syncytial Virus Not Detected (Not Detect)
[2017-08-30] MEDS: Ipratropium/Albuterol Neb 3 ML IH PRN (03:34)
[2017-08-30] MEDS: *HR* LORazepam 0.5 MG TABLET PO PRN (04:13)
[2017-08-30 06:10] LABS: Hematocrit 44.7 % (37.5-50.1); Hemoglobin 14.2 g/dL (12.9-16.9); Mean Corpuscular HGB Conc 31.8 g/dL (31.6-35.5); Mean Corpuscular Hemoglobin 27.8 pg (28.0-33.3); Mean Corpuscular Volume 87.5 fL (83.0-100.0); Platelet Count 199 K/mcL (140-400); Red Blood Count 5.11 M/mcL (4.19-5.50); Red Cell Distribution Width 16.1 % (11.5-14.5)
[2017-08-30 06:12] LABS: INR 2.2; Prothrombin Time 24.2 Seconds (9.4-12.1)
[2017-08-30] MEDS: LEVOTHYROXINE PO SCH (06:14)
--- NOTE | 2017-08-30 06:20 | Electrocardiograph Report ---
[address] [place], [place] [address] Test Date: 2017-08-28 Pat Name: Clemente Davila Department: 104 Room: [facility] Gender: M Detention Sergeant: KAT : 1955 Requested By: Kerwin Busby Order Number: [id number] Reading MD: Amor Ramey Measurements Intervals [place] Rate: 73 P: 12 UT: 149 QRS: -22 QRSD: 93 T: 41 QT: 370 QTc: 396 Interpretive Statements SINUS RHYTHM BORDERLINE LEFT AXIS DEVIATION LOW QRS VOLTAGE IN PRECORDIAL LEADS BASELINE ARTIFACT Electronically Signed On 08-30-2017 6:18:29 EDT by Amor Ramey
[2017-08-30 06:28] LABS: BUN/Creatinine Ratio 23 (6-26); Blood Urea Nitrogen 20 mg/dL (8-23); Calcium 9.4 mg/dL (8.6-10.3); Carbon Dioxide 27 mEq/L (23-29); Chloride 100 mEq/L (98-107); Glucose 135 mg/dL (70-105); Osmolality,Calculated 285 (280-300); Potassium 4.2 mEq/L (3.5-5.1); Sodium 135 mEq/L (136-145); eGFR For African Americans > 60 (> 60); eGFR For Non-African Americans > 60 (> 60)
[2017-08-30] MEDS: Budesonide/Formoterol 160/4.5 MDI IH SCH ×2 (08:04→19:59)
[2017-08-30] MEDS: Insulin LISPRO 300 UNITS/3 ML VIAL SQ SCH ×4 (08:21→20:35)
[2017-08-30] MEDS: Furosemide 40 MG/4 ML VIAL IVP SCH ×2 (08:21→17:48)
[2017-08-30] MEDS: predniSONE 20 MG TABLET PO SCH (08:22)
[2017-08-30] MEDS: FLUoxetine 20 MG CAPSULE PO SCH (08:22)
[2017-08-30 10:33] LABS: Estimated Average Glucose 140 mg/dl; Hemoglobin A1C 6.5 %
--- NOTE | 2017-08-30 16:31 | Internal Med Progress Note ---
Date of Encounter: 08/30/17 Time of Encounter: 16:28 - Assessment and plan (1) Acute exacerbation of CHF (congestive heart failure) Current Visit: Yes Status: Acute Assessment and plan: presents with worsening dyspnea and leg swelling. 12/2016 TTE showed preserved EF , mild LV diastolic dysfunction, concentric LVH; will repeat TTE. Repeat TTE with EF 65%, normal diastolic dysfunction and no valvular dysfunction. Clinically appears overloaded with SOB, rales and lower extremity edema on exam. Continue diuresis with IV Lasix. Strict I&O's, daily weights Qualifiers: Heart failure type: diastolic Qualified Code(s): I50.9 - Heart failure, unspecified (2) COPD (chronic obstructive pulmonary disease) Current Visit: Yes Status: Chronic Assessment and plan: hx COPD with chronic respiratory failure; on oxygen at home. With wheezing and mild dyspnea on exam. CXR without evidence of infiltrate. Respiratory PCR, urinary antigens negative Cont IV ceftriaxone, azithromycin and steroid bursts. Continue bronchodilators. Qualifiers: COPD type: unspecified COPD Qualified Code(s): J44.9 - Chronic obstructive pulmonary disease, unspecified (3) Afib Current Visit: Yes Status: Chronic Assessment and plan: per hx. Rate controlled. Qualifiers: Atrial fibrillation type: paroxysmal Qualified Code(s): I48.0 - Paroxysmal atrial fibrillation (4) Chronic respiratory failure with hypoxia Current Visit: Yes Status: Chronic Assessment and plan: on home O2 due to underlying COPD and CHF; (5) Tobacco abuse counseling Current Visit: Yes Status: Chronic Assessment and plan: current smoker; cessation advised. Nicotine TD patch as needed (6) CAD (coronary artery disease) Current Visit: Yes Status: Chronic Assessment and plan: per hx. [facility] records reviewed that showed less than 50% CAD per 2007 [facility]. Serial troponin negative. EKG without acute ST changes. Initially denied chest pain however he is been progressively dyspneic with little exertion. Now with intermittent chest pain while inpatient. He has significant cardiac risk factors including morbid obesity, diabetes, hypertension, hyperlipidemia. Will need stress tests prior to discharge. Cont home coumadin. statin, BB Qualifiers: Coronary Disease-Associated Artery/Lesion type: [place] artery [place] vs. transplanted heart: [place] heart Associated angina: without angina Qualified Code(s): I25.10 - Atherosclerotic heart disease of [place] coronary artery without angina pectoris (7) BECK (obstructive sleep apnea) Current Visit: Yes Status: Chronic Assessment and plan: patient needs to repeat outpatient sleep studies and get a new working CPAP/ BiPap; (8) Diabetes mellitus Current Visit: Yes Status: Chronic Assessment and plan: per hx. Control unknown. Holding home oral hypoglycemics. SSI. Monitor blood sugar and titrate PRN. Hgb A1c pending Qualifiers: Diabetes mellitus type: type 2 Diabetes mellitus usp insulin use: with roasterman use Diabetes mellitus complication status: with unspecified complications Qualified Code(s): E11.8 - Type 2 diabetes mellitus with unspecified complications; Z79.4 - nursing home (current) use of insulin; Z79.4 - nursing home (current) use of insulin; Z79.4 - ocean transportation intermediary (current) use of insulin; Z79.4 - nursing home (current) use of insulin (9) PAD (peripheral artery disease) Current Visit: Yes Status: Chronic Assessment and plan: per hx. Cont home coumdin, BB, statin (10) Hypothyroidism Current Visit: Yes Status: Chronic Assessment and plan: resume Levothyroxine; Qualifiers: Hypothyroidism type: unspecified Qualified Code(s): E03.9 - Hypothyroidism , unspecified (11) Morbid obesity Current Visit: Yes Status: Chronic Assessment and plan: BMI 58, weight 180 kg. Lifestyle and dietary modifications recommended. (12) DVT prophylaxis Current Visit: No Status: Acute Assessment and plan: coumadin - Time Spent With Patient Total time spent is greater than 50% in coordination of care (as documented) at patient's floor/unit and/or counseling patient: - Subjective Interval history: Seen and examined at bedside. He still complaining of shortness of breath that is somewhat better. He tells me that he is also had intermittent palpitations and chest pain. Requested and received records from [facility] and patient apparently had a heart catheter in 2007 with a proximally 50% CAD. - Constitutional Vitals: Temp Pulse Resp BP Pulse Ox 97.9 F 73 18 100/56 95 08/30/17 15:52 08/30/17 15:52 08/30/17 15:52 08/30/17 15:52 08/30/17 15:52 General appearance: Present: A&O X 3, morbidly obese, answers questions appropriately - Head Head exam: Present: atraumatic, normocephalic - Eye Eye exam: Present: PERRL, conjuntiva pink, sclera anicteric Pupils: Present: PERRL - Neck Neck exam general surgery: Present: supple, trachea midline. Absent: lymphadenopathy - Respiratory Respiratory exam: Present: CTAB, respiratory distress (Appears mildly dyspneic) , rhonchi, wheezes. Absent: accessory muscle use, rales - Cardiovascular Cardiovascular exam: Present: RRR, +S1, +S2. Absent: diastolic murmur, gallop, rubs, systolic murmur - GI/Abdominal GI/Abdominal exam: Present: normal bowel sounds, soft, no peritoneal signs. Absent: distended, tenderness - Extremities Exam Extremities exam: Present: warm, radial pulses palpable and symmetrical. Absent : calf tenderness, cyanotic, pedal edema - Neurological Exam Neurological exam: Present: CN II-XII intact, oriented X3, no focal deficits. Absent: pronater drift, facial droop, speech deficit - Skin Skin exam: Present: dry, intact Internal Medicine: Result - Labs CBC & Chem 7: 08/30/17 04:02 08/30/17 04:02 Labs: Short CBC 08/30/17 Range/Units 04:02 WBC 11.1 (4.3-11.1) K/mcL Hgb 14.2 (12.9-16.9) g/dL Hct 44.7 (37.5-50.1) % Plt Count 199 (140-400) K/mcL [facility] 08/30/17 04:02 Sodium 135 L Potassium 4.2 Chloride 100 Carbon Dioxide 27 BUN 20 Creatinine 0.86 Glucose 135 H Calcium 9.4 - ABG Interpretation ABG results: PT/INR, D-dimer PT 24.2 Seconds (9.4-12.1) H 08/30/17 04:02 Consult Discharge Plan - Plan Referrals: Fartun Quinones, APPRENTICESHIP TRAINING REPRESENTATIVE [Primary Care Provider] -
[2017-08-30] MEDS: cefTRIAXone 1,000 MG in Water for inj. (sterile) 20 ML 10 ML IVP SCH (17:48)
[2017-08-30] MEDS: Azithromycin 500 MG in D5% in Water 250 ML IVPB SCH (17:49)
[2017-08-30] MEDS: Warfarin perPT PO SCH (17:51)
[2017-08-30] MEDS ORDERED: *HR* Warfarin 10 MG TABLET PO ONE (18:00)
[2017-08-31] MEDS: Ipratropium/Albuterol Neb 3 ML IH PRN ×2 (05:34→23:08)
[2017-08-31] MEDS: LEVOTHYROXINE PO SCH (06:14)
[2017-08-31 07:15] LABS: Hemoglobin 13.1 g/dL (12.9-16.9); Mean Corpuscular Hemoglobin 27.9 pg (28.0-33.3); Mean Corpuscular Volume 87.4 fL (83.0-100.0); Mean Platelet Volume 10.6 fL (9.4-12.4); Platelet Count 161 K/mcL (140-400); Red Blood Count 4.69 M/mcL (4.19-5.50); Red Cell Distribution Width 16.1 % (11.5-14.5)
[2017-08-31 07:20] LABS: INR 2.3; Prothrombin Time 25.6 Seconds (9.4-12.1)
[2017-08-31 07:34] LABS: BUN/Creatinine Ratio 28 (6-26); Blood Urea Nitrogen 23 mg/dL (8-23); Calcium 8.8 mg/dL (8.6-10.3); Carbon Dioxide 29 mEq/L (23-29); Chloride 102 mEq/L (98-107); Glucose 107 mg/dL (70-105); Osmolality,Calculated 288 (280-300); Potassium 3.8 mEq/L (3.5-5.1); Sodium 137 mEq/L (136-145); eGFR For African Americans > 60 (> 60); eGFR For Non-African Americans > 60 (> 60)
[2017-08-31] MEDS: Budesonide/Formoterol 160/4.5 MDI IH SCH ×2 (08:05→23:04)
[2017-08-31] MEDS: Furosemide 40 MG/4 ML VIAL IVP SCH ×2 (09:50→17:35)
[2017-08-31] MEDS: predniSONE 20 MG TABLET PO SCH (09:53)
[2017-08-31] MEDS: FLUoxetine 20 MG CAPSULE PO SCH (09:53)
[2017-08-31] MEDS: Insulin LISPRO 300 UNITS/3 ML VIAL SQ SCH ×4 (09:57→21:11)
[2017-08-31] MEDS ORDERED: Tetrahydrozoline 15 ML BOTTLE RIGHT EYE PRN (15:07)
--- NOTE | 2017-08-31 16:20 | Internal Med Progress Note ---
Date of Encounter: 08/31/17 Time of Encounter: 16:18 - Assessment and plan (1) Acute exacerbation of CHF (congestive heart failure) Current Visit: Yes Status: Acute Assessment and plan: presents with worsening dyspnea and leg swelling. 12/2016 TTE showed preserved EF , mild LV diastolic dysfunction, concentric LVH; will repeat TTE. Repeat TTE with EF 65%, normal diastolic dysfunction and no valvular dysfunction. Clinically appears overloaded with SOB, rales and lower extremity edema on exam. Continue diuresis with IV Lasix. Strict I&O's, daily weights Qualifiers: Heart failure type: diastolic Qualified Code(s): I50.9 - Heart failure, unspecified (2) COPD (chronic obstructive pulmonary disease) Current Visit: Yes Status: Chronic Assessment and plan: hx COPD with chronic respiratory failure; on oxygen at home. With wheezing and mild dyspnea on exam. CXR without evidence of infiltrate. Respiratory PCR, urinary antigens negative Cont IV ceftriaxone, azithromycin and steroid bursts. Continue bronchodilators. Qualifiers: COPD type: unspecified COPD Qualified Code(s): J44.9 - Chronic obstructive pulmonary disease, unspecified (3) Afib Current Visit: Yes Status: Chronic Assessment and plan: per hx. Rate controlled. Qualifiers: Atrial fibrillation type: paroxysmal Qualified Code(s): I48.0 - Paroxysmal atrial fibrillation (4) Chronic respiratory failure with hypoxia Current Visit: Yes Status: Chronic Assessment and plan: on home O2 due to underlying COPD and CHF; (5) CAD (coronary artery disease) Current Visit: Yes Status: Chronic Assessment and plan: per hx. [facility] records reviewed that showed less than 50% CAD per 2008 [facility]. Serial troponin negative. EKG without acute ST changes. Initially denied chest pain however he is been progressively dyspneic with little exertion. Now with intermittent chest pain while inpatient. He has significant cardiac risk factors including morbid obesity, diabetes, hypertension, hyperlipidemia. NPO at midnight, stress test in am. Cont home coumadin. statin, BB Qualifiers: Coronary Disease-Associated Artery/Lesion type: [place] artery [place] vs. transplanted heart: [place] heart Associated angina: without angina Qualified Code(s): I25.10 - Atherosclerotic heart disease of [place] coronary artery without angina pectoris (6) Tobacco abuse counseling Current Visit: Yes Status: Chronic Assessment and plan: current smoker; cessation advised. Nicotine TD patch as needed (7) BECK (obstructive sleep apnea) Current Visit: Yes Status: Chronic Assessment and plan: patient needs to repeat outpatient sleep studies and get a new working CPAP/ BiPap; (8) Diabetes mellitus Current Visit: Yes Status: Chronic Assessment and plan: per hx. Control unknown. Holding home oral hypoglycemics. SSI. Monitor blood sugar and titrate PRN. Hgb A1c pending Qualifiers: Diabetes mellitus type: type 2 Diabetes mellitus termination clerk insulin use: with jail use Diabetes mellitus complication status: with unspecified complications Qualified Code(s): E11.8 - Type 2 diabetes mellitus with unspecified complications; Z79.4 - assisted (current) use of insulin; Z79.4 - termination clerk (current) use of insulin; Z79.4 - assisted (current) use of insulin; Z79.4 - termination clerk (current) use of insulin (9) PAD (peripheral artery disease) Current Visit: Yes Status: Chronic Assessment and plan: per hx. Cont home coumdin, BB, statin (10) Hypothyroidism Current Visit: Yes Status: Chronic Assessment and plan: resume Levothyroxine; Qualifiers: Hypothyroidism type: unspecified Qualified Code(s): E03.9 - Hypothyroidism , unspecified (11) Morbid obesity Current Visit: Yes Status: Chronic Assessment and plan: BMI 58, weight 180 kg. Lifestyle and dietary modifications recommended. (12) DVT prophylaxis Current Visit: No Status: Acute Assessment and plan: coumadin - Time Spent With Patient Total time spent is greater than 50% in coordination of care (as documented) at patient's floor/unit and/or counseling patient: - Subjective Interval history: Seen and examined at bedside. Says he feels about the same. Still with shortness of breath that is worse on exertion. He also reports intermittent palpitations and chest pressure. No active chest pain on my exam. He is aware of need to be nothing by mouth at midnight for stress test in the morning. - Constitutional Vitals: Temp Pulse Resp BP Pulse Ox 97.6 F 71 16 128/74 95 08/31/17 15:12 08/31/17 15:12 08/31/17 15:12 08/31/17 15:12 08/31/17 15:12 General appearance: Present: A&O X 3, morbidly obese, no acute distress, answers questions appropriately - Head Head exam: Present: atraumatic, normocephalic - Eye Eye exam: Present: PERRL, conjuntiva pink, sclera anicteric Pupils: Present: PERRL - Neck Neck exam general surgery: Present: supple, trachea midline. Absent: lymphadenopathy - Respiratory Respiratory exam: Present: CTAB, wheezes. Absent: accessory muscle use, rales, rhonchi - Cardiovascular Cardiovascular exam: Present: RRR, +S1, +S2. Absent: diastolic murmur, gallop, rubs, systolic murmur - GI/Abdominal GI/Abdominal exam: Present: normal bowel sounds, soft, no peritoneal signs. Absent: distended, tenderness - Extremities Exam Extremities exam: Present: warm, radial pulses palpable and symmetrical. Absent : calf tenderness, cyanotic, pedal edema - Neurological Exam Neurological exam: Present: CN II-XII intact, oriented X3, no focal deficits. Absent: pronater drift, facial droop, speech deficit - Skin Skin exam: Present: dry, intact Internal Medicine: Result - Labs CBC & Chem 7: 08/31/17 07:00 08/31/17 07:00 Labs: Short CBC 08/31/17 Range/Units 07:00 WBC 11.3 H (4.3-11.1) K/mcL Hgb 13.1 (12.9-16.9) g/dL Hct 41.0 (37.5-50.1) % Plt Count 161 (140-400) K/mcL BMP 08/31/17 07:00 Sodium 137 Potassium 3.8 Chloride 102 Carbon Dioxide 29 BUN 23 Creatinine 0.83 Glucose 107 H Calcium 8.8 Cardiac Enzymes 08/30/17 Range/Units 16:15 Troponin I < 0.03 (< 0.04) ng/mL - ABG Interpretation ABG results: PT/INR, D-dimer PT 25.6 Seconds (9.4-12.1) H 08/31/17 07:00 Consult Discharge Plan - Plan Referrals: Fartun Quinones, DIRECTOR OF INSTRUCTION [Primary Care Provider] -
[2017-08-31] MEDS: Tetrahydrozoline 15 ML BOTTLE BOTH EYES PRN (17:33)
[2017-08-31] MEDS: cefTRIAXone 1,000 MG in Water for inj. (sterile) 20 ML 10 ML IVP SCH (17:35)
[2017-08-31] MEDS: Azithromycin 500 MG in D5% in Water 250 ML IVPB SCH (17:43)
[2017-08-31] MEDS: Warfarin perPT PO SCH (17:56)
[2017-08-31] MEDS ORDERED: *HR* Warfarin 10 MG TABLET PO ONE (18:00)
[2017-09-01] MEDS ORDERED: Regadenoson 0.4 MG/5 ML SYRINGE IVP ONE (05:28)
[2017-09-01] MEDS: LEVOTHYROXINE PO SCH (05:57)
[2017-09-01 06:16] LABS: Hematocrit 40.5 % (37.5-50.1); Hemoglobin 12.7 g/dL (12.9-16.9); Mean Corpuscular HGB Conc 31.4 g/dL (31.6-35.5); Mean Corpuscular Hemoglobin 27.9 pg (28.0-33.3); Mean Platelet Volume 10.9 fL (9.4-12.4); Platelet Count 160 K/mcL (140-400); Red Blood Count 4.55 M/mcL (4.19-5.50); Red Cell Distribution Width 16.2 % (11.5-14.5)
[2017-09-01 06:19] LABS: INR 2.3; Prothrombin Time 25.7 Seconds (9.4-12.1)
[2017-09-01 06:33] LABS: BUN/Creatinine Ratio 32 (6-26); Blood Urea Nitrogen 26 mg/dL (8-23); Calcium 8.9 mg/dL (8.6-10.3); Carbon Dioxide 30 mEq/L (23-29); Chloride 102 mEq/L (98-107); Glucose 105 mg/dL (70-105); Osmolality,Calculated 287 (280-300); Potassium 4.1 mEq/L (3.5-5.1); Sodium 136 mEq/L (136-145); eGFR For African Americans > 60 (> 60); eGFR For Non-African Americans > 60 (> 60)
[2017-09-01] MEDS: Insulin LISPRO 300 UNITS/3 ML VIAL SQ SCH ×4 (09:21→22:51)
[2017-09-01] MEDS: Furosemide 40 MG/4 ML VIAL IVP SCH ×2 (09:21→16:18)
[2017-09-01] MEDS: FLUoxetine 20 MG CAPSULE PO SCH (09:22)
[2017-09-01] MEDS: predniSONE 20 MG TABLET PO SCH (09:22)
[2017-09-01] MEDS: Budesonide/Formoterol 160/4.5 MDI IH SCH ×2 (10:16→20:32)
--- NOTE | 2017-09-01 13:09 | Internal Med Progress Note ---
Date of Encounter: 09/01/17 Time of Encounter: 13:06 - Assessment and plan (1) Acute exacerbation of CHF (congestive heart failure) Current Visit: Yes Status: Acute Assessment and plan: presents with worsening dyspnea and leg swelling. TTE with EF 65%, normal diastolic dysfunction and no valvular dysfunction. CXR with pulmonary vascular congestion. Clinically appears overloaded with SOB, rales and lower extremity edema on exam. Continue diuresis with IV Lasix. Strict I&O's, daily weights Qualifiers: Heart failure type: diastolic Qualified Code(s): I50.9 - Heart failure, unspecified (2) COPD (chronic obstructive pulmonary disease) Current Visit: Yes Status: Chronic Assessment and plan: hx COPD with chronic respiratory failure; on oxygen at home. With wheezing and mild dyspnea on exam. CXR without evidence of infiltrate. Respiratory PCR, urinary antigens negative Cont IV ceftriaxone, azithromycin and steroid bursts. Continue bronchodilators. Qualifiers: COPD type: unspecified COPD Qualified Code(s): J44.9 - Chronic obstructive pulmonary disease, unspecified (3) Afib Current Visit: Yes Status: Chronic Assessment and plan: per hx. Rate controlled. Cont home BB, coumadin Qualifiers: Atrial fibrillation type: paroxysmal Qualified Code(s): I48.0 - Paroxysmal atrial fibrillation (4) Chronic respiratory failure with hypoxia Current Visit: Yes Status: Chronic Assessment and plan: on home O2 due to underlying COPD and CHF; continue treating underlying causes as noted above. CT chest pending (5) CAD (coronary artery disease) Current Visit: Yes Status: Chronic Assessment and plan: per hx. [facility] records reviewed that showed less than 50% CAD per 2007 [facility]. Serial troponin negative. EKG without acute ST changes. Initially denied chest pain however he is been progressively dyspneic with little exertion. Now with intermittent chest pain while inpatient. He has significant cardiac risk factors including morbid obesity, diabetes, hypertension, hyperlipidemia. NPO at midnight, stress test in am. Cont home coumadin. statin, BB Qualifiers: Coronary Disease-Associated Artery/Lesion type: [place] artery [place] vs. transplanted heart: [place] heart Associated angina: without angina Qualified Code(s): I25.10 - Atherosclerotic heart disease of [place] coronary artery without angina pectoris (6) Tobacco abuse counseling Current Visit: Yes Status: Chronic Assessment and plan: current smoker; cessation advised. Nicotine TD patch as needed (7) BECK (obstructive sleep apnea) Current Visit: Yes Status: Chronic Assessment and plan: patient needs to repeat outpatient sleep studies and get a new working CPAP/ BiPap; (8) Diabetes mellitus Current Visit: Yes Status: Chronic Assessment and plan: per hx. Hgb A1c 6.5%. Holding home oral hypoglycemics. SSI. Monitor blood sugar and titrate PRN. Blood sugars controlled on 09/01 Qualifiers: Diabetes mellitus type: type 2 Diabetes mellitus vermin exterminator insulin use: with vermin exterminator use Diabetes mellitus complication status: with unspecified complications Qualified Code(s): E11.8 - Type 2 diabetes mellitus with unspecified complications; Z79.4 - terminologist (current) use of insulin; Z79.4 - senior care (current) use of insulin; Z79.4 - terminologist (current) use of insulin; Z79.4 - senior care (current) use of insulin (9) PAD (peripheral artery disease) Current Visit: Yes Status: Chronic Assessment and plan: per hx. Cont home coumdin, BB, statin (10) Hypothyroidism Current Visit: Yes Status: Chronic Assessment and plan: resume Levothyroxine; Qualifiers: Hypothyroidism type: unspecified Qualified Code(s): E03.9 - Hypothyroidism , unspecified (11) Morbid obesity Current Visit: Yes Status: Chronic Assessment and plan: BMI 58, weight 180 kg. Lifestyle and dietary modifications recommended. (12) DVT prophylaxis Current Visit: No Status: Acute Assessment and plan: coumadin - Time Spent With Patient Total time spent is greater than 50% in coordination of care (as documented) at patient's floor/unit and/or counseling patient: - Subjective Interval history: Seen and examined at bedside. Sitting up on edge of the bed. He reports an episode of chest pain overnight, described as a burning sensation to right chest. Also with persistent shortness of breath that is worse with exertion. Patient's other last 5-6 weeks he can only walk a few steps without becoming short winded. - Constitutional Vitals: Temp Pulse Resp BP Pulse Ox 97.8 F 68 18 137/67 100 09/01/17 11:39 09/01/17 11:39 09/01/17 11:39 09/01/17 11:39 09/01/17 11:39 General appearance: Present: A&O X 3, morbidly obese, no acute distress, answers questions appropriately - Head Head exam: Present: atraumatic, normocephalic - Eye Eye exam: Present: PERRL, conjuntiva pink, sclera anicteric Pupils: Present: PERRL - Neck Neck exam general surgery: Present: supple, trachea midline. Absent: lymphadenopathy - Respiratory Respiratory exam: Present: CTAB, wheezes. Absent: accessory muscle use, rales, rhonchi - Cardiovascular Cardiovascular exam: Present: RRR, +S1, +S2. Absent: diastolic murmur, gallop, rubs, systolic murmur - GI/Abdominal GI/Abdominal exam: Present: normal bowel sounds, soft, no peritoneal signs. Absent: distended, tenderness - Extremities Exam Extremities exam: Present: pedal edema, warm, radial pulses palpable and symmetrical. Absent: calf tenderness, cyanotic - Neurological Exam Neurological exam: Present: CN II-XII intact, oriented X3, no focal deficits. Absent: pronater drift, facial droop, speech deficit - Skin Skin exam: Present: dry, intact Internal Medicine: Result - Labs CBC & Chem 7: 09/01/17 05:40 09/01/17 05:40 Labs: Short CBC 09/01/17 Range/Units 05:40 WBC 10.1 (4.3-11.1) K/mcL Hgb 12.7 L (12.9-16.9) g/dL Hct 40.5 (37.5-50.1) % Plt Count 160 (140-400) K/mcL BMP 09/01/17 05:40 Sodium 136 Potassium 4.1 Chloride 102 Carbon Dioxide 30 H BUN 26 H Creatinine 0.81 Glucose 105 Calcium 8.9 - ABG Interpretation ABG results: PT/INR, D-dimer PT 25.7 Seconds (9.4-12.1) H 09/01/17 05:40 Consult Discharge Plan - Plan Referrals: Fartun Quinones, RISK PREVENTION ENGINEER [Primary Care Provider] -
[2017-09-01] MEDS ORDERED: Isovue-370 500 ML INFUS..BTL IV ONE (13:13)
[2017-09-01] MEDS: Ipratropium/Albuterol Neb 3 ML IH SCH ×3 (15:48→23:49)
[2017-09-01] MEDS: cefTRIAXone 1,000 MG in Water for inj. (sterile) 20 ML 10 ML IVP SCH (16:18)
[2017-09-01] MEDS: Azithromycin 500 MG in D5% in Water 250 ML IVPB SCH (16:19)
[2017-09-01] MEDS: Warfarin perPT PO SCH (17:45)
[2017-09-01] MEDS ORDERED: *HR* Warfarin 10 MG TABLET PO ONE (18:00)
[2017-09-01] MEDS: Tetrahydrozoline 15 ML BOTTLE BOTH EYES PRN (23:05)
[2017-09-02] MEDS: Ipratropium/Albuterol Neb 3 ML IH SCH ×6 (03:42→23:05)
[2017-09-02] MEDS ORDERED: Regadenoson 0.4 MG/5 ML SYRINGE IVP ONE (05:43)
[2017-09-02] MEDS: LEVOTHYROXINE PO SCH (05:55)
[2017-09-02] MEDS: Budesonide/Formoterol 160/4.5 MDI IH SCH ×2 (07:37→20:02)
[2017-09-02] MEDS: Insulin LISPRO 300 UNITS/3 ML VIAL SQ SCH ×4 (07:43→20:37)
[2017-09-02] MEDS: predniSONE 20 MG TABLET PO SCH (10:49)
[2017-09-02] MEDS: Furosemide 40 MG/4 ML VIAL IVP SCH ×2 (10:49→17:11)
[2017-09-02] MEDS: FLUoxetine 20 MG CAPSULE PO SCH (10:49)
[2017-09-02 14:21] LABS: Hematocrit 40.7 % (37.5-50.1); Hemoglobin 13.1 g/dL (12.9-16.9); Mean Corpuscular HGB Conc 32.2 g/dL (31.6-35.5); Mean Corpuscular Hemoglobin 28.7 pg (28.0-33.3); Mean Corpuscular Volume 89.3 fL (83.0-100.0); Mean Platelet Volume 10.8 fL (9.4-12.4); Platelet Count 157 K/mcL (140-400); Red Blood Count 4.56 M/mcL (4.19-5.50); Red Cell Distribution Width 15.8 % (11.5-14.5)
[2017-09-02 14:26] LABS: INR 2.9; Prothrombin Time 31.7 Seconds (9.4-12.1)
[2017-09-02 14:42] LABS: BUN/Creatinine Ratio 23 (6-26); Blood Urea Nitrogen 21 mg/dL (8-23); Calcium 8.7 mg/dL (8.6-10.3); Carbon Dioxide 28 mEq/L (23-29); Chloride 103 mEq/L (98-107); Glucose 124 mg/dL (70-105); Osmolality,Calculated 288 (280-300); Sodium 137 mEq/L (136-145); eGFR For African Americans > 60 (> 60); eGFR For Non-African Americans > 60 (> 60)
--- NOTE | 2017-09-02 17:08 | Electrocardiograph Report ---
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
[2017-09-02] MEDS: cefTRIAXone 1,000 MG in Water for inj. (sterile) 20 ML 10 ML IVP SCH (17:10)
[2017-09-02] MEDS: Azithromycin 500 MG in D5% in Water 250 ML IVPB SCH (17:10)
[2017-09-02] MEDS: Warfarin perPT PO SCH (17:11)
[2017-09-02] MEDS: Tetrahydrozoline 15 ML BOTTLE BOTH EYES PRN (17:12)
--- NOTE | 2017-09-02 17:51 | Internal Med Progress Note ---
Date of Encounter: 09/02/17 Time of Encounter: 10:35 - Assessment and plan (1) Afib Current Visit: Yes Status: Chronic Assessment and plan: Chronic. Rate controlled. Continue home dose of beta alf and warfarin. Qualifiers: Atrial fibrillation type: paroxysmal Qualified Code(s): I48.0 - Paroxysmal atrial fibrillation (2) DVT prophylaxis Current Visit: Yes Status: Acute Assessment and plan: Continue warfarin. INR is therapeutic at 2.9. (3) COPD (chronic obstructive pulmonary disease) Current Visit: Yes Status: Chronic Assessment and plan: No acute exacerbation at this time. At baseline O2 demand. Patient lungs are clear and diminished throughout. Chest x-ray is negative. Respiratory PCR and urinary antigens are negative. Patient has no leukocytosis or fever, no tachycardia. Chest CTA shows no evidence of PE, there is sequela of old granulomatous disease and a noncalcified 3 mm nodule right upper lobe, recommend follow-up in one year. Also noted are calcified atheromatous plaque and coronary calcifications. Patient is being treated with IV Rocephin and Zithromax, will stop as there is no sign of infection or pneumonia at this time. Patient completed steroid burst today. Qualifiers: COPD type: unspecified COPD Qualified Code(s): J44.9 - Chronic obstructive pulmonary disease, unspecified (4) Chronic respiratory failure with hypoxia Current Visit: Yes Status: Chronic Assessment and plan: Secondary to COPD, CHF. Patient is at baseline O2 demand. O2 as needed to maintain sats greater than 92%. (5) Acute exacerbation of CHF (congestive heart failure) Current Visit: Yes Status: Acute Assessment and plan: Echocardiogram dated 08/29/17 shows an LVEF of 65-70% with normal LV diastolic function is significant valvular dysfunction. Patient presented to the emergency room with increasing shortness of breath and peripheral edema. Chest x-ray was negative for pulmonary vascular congestion. Patient did appear to be related with associated shortness of breath and lower extremity edema which is improved. Continue diuresis with IV Lasix Strict I&O, daily weights. Fluid balance diuresis -1.7 L. 1.5 L fluid restriction diet. O2 as needed to maintain sats greater than 92%. Qualifiers: Heart failure type: diastolic Qualified Code(s): I50.9 - Heart failure, unspecified (6) Tobacco abuse counseling Current Visit: Yes Status: Chronic Assessment and plan: Continue NicoDerm patch as needed. (7) CAD (coronary artery disease) Current Visit: Yes Status: Chronic Assessment and plan: Chronic. Patient denies chest pain today. Patient's risk factors for cardiac disease including obesity, diabetes, hypertension, hyperlipidemia, BECK, noncompliance with assistance. Patient will complete secondary stress test tomorrow. Continue telemetry continue home medications. Qualifiers: Coronary Disease-Associated Artery/Lesion type: [place] artery [place] vs. transplanted heart: [place] heart Associated angina: without angina Qualified Code(s): I25.10 - Atherosclerotic heart disease of [place] coronary artery without angina pectoris (8) BECK (obstructive sleep apnea) Current Visit: Yes Status: Chronic Assessment and plan: Patient admits to noncompliance with CPAP, he states it does not work. He will need to follow up with primary care for referral to pulmonology for sleep studies. t (9) Diabetes mellitus Current Visit: Yes Status: Chronic Assessment and plan: Chronic. A1c is 6.5%. Continue sliding scale insulin, Accu-Cheks before meals and at bedtime, diabetic diet as well as fluid restriction and cardiac diet. Qualifiers: Diabetes mellitus type: type 2 Diabetes mellitus group home insulin use: with group home use Diabetes mellitus complication status: with unspecified complications Qualified Code(s): E11.8 - Type 2 diabetes mellitus with unspecified complications; Z79.4 - terminal worker (current) use of insulin; Z79.4 - terminal worker (current) use of insulin; Z79.4 - half-way (current) use of insulin; Z79.4 - terminal worker (current) use of insulin (10) PAD (peripheral artery disease) Current Visit: Yes Status: Chronic Assessment and plan: Chronic. Continue home doses of Coumadin, beta alf, statin. (11) Hypothyroidism Current Visit: Yes Status: Chronic Assessment and plan: Chronic. Continue levothyroxine. Qualifiers: Hypothyroidism type: unspecified Qualified Code(s): E03.9 - Hypothyroidism , unspecified (12) Morbid obesity Current Visit: Yes Status: Chronic Assessment and plan: Chronic. Continue to encourage lifestyle modifications. - Time Spent With Patient Total time spent is greater than 50% in coordination of care (as documented) at patient's floor/unit and/or counseling patient: less than 15 minutes - Subjective Interval history: Patient was seen and assessed at bedside at 10:35 AM. Patient reports increasing dyspnea on exertion for the last 8-9 weeks. Patient reports that he normally wears oxygen at home, is not wearing it now. He states that he tries not to use it because he does not want to become dependent on it. He also reports that at home he has anxiety during the night and does not wear his BiPAP due to the anxiety. Patient also reports that he willingly is noncompliant with his medications and weaned himself off medications because he does not feel like he needs all of them, but states, "I know which ones are important." He continues to deny chest pain today. He denies shortness of breath and appears to be in no distress at rest. He denies any abdominal pain, headache, nausea, vomiting, diaphoresis. - Constitutional Vitals: Temp Pulse Resp BP Pulse Ox 97.7 F 76 18 114/68 92 09/02/17 14:51 09/02/17 14:51 09/02/17 15:38 09/02/17 14:51 09/02/17 15:38 General appearance: Present: cooperative, A&O X 3, morbidly obese, pleasant, no acute distress, answers questions appropriately - Head Head exam: Present: atraumatic, normal inspection, normocephalic - Eye Eye exam: Present: normal appearance, conjuntiva pink, sclera anicteric - Neck Neck exam general surgery: Present: supple, trachea midline. Absent: lymphadenopathy, tenderness - Respiratory Respiratory exam: Present: decreased breath sounds, CTAB. Absent: accessory muscle use, chest wall tenderness, rales, respiratory distress, rhonchi, wheezes - Cardiovascular Cardiovascular exam: Present: RRR, +S1, +S2. Absent: diastolic murmur, gallop, rubs, systolic murmur - GI/Abdominal GI/Abdominal exam: Present: normal bowel sounds, soft. Absent: distended, hepatomegaly, tenderness - Extremities Exam Extremities exam: Present: normal capillary refill, normal inspection, warm, radial pulses palpable and symmetrical. Absent: calf tenderness, cyanotic, pedal edema, tenderness - Neurological Exam Neurological exam: Present: alert, oriented X3, no focal deficits. Absent: facial droop, speech deficit - Skin Skin exam: Present: dry, intact, normal color, warm. Absent: rash Internal Medicine: Result - Labs CBC & Chem 7: 09/02/17 04:00 09/02/17 04:00 Labs: Short CBC 09/02/17 Range/Units 04:00 WBC 9.9 (4.3-11.1) K/mcL Hgb 13.1 (12.9-16.9) g/dL Hct 40.7 (37.5-50.1) % Plt Count 157 (140-400) K/mcL BMP 09/02/17 04:00 Sodium 137 Potassium 4.0 Chloride 103 Carbon Dioxide 28 BUN 21 Creatinine 0.90 Glucose 124 H Calcium 8.7 - ABG Interpretation ABG results: PT/INR, D-dimer PT 31.7 Seconds (9.4-12.1) H 09/02/17 04:00 - Impressions Impressions Chest CTA 09/01/17 14:30 IMPRESSION: No evidence of pulmonary embolism or acute pulmonary abnormality. Sequela of old granulomatous disease. A noncalcified 3 mm nodule in the right upper lobe is noted. Follow-up with noncontrast chest CT in 1 year may be warranted if the patient has risk factors for lung cancer. Calcified atheromatous plaque and coronary calcifications. D/ / Sincere Friend / Sincere Friend Interpreting Provider: Sincere Friend Consult Discharge Plan - Plan Referrals: Fartun Quinones, ELECTRONIC DEVICE REPAIRER [Primary Care Provider] -
[2017-09-02] MEDS ORDERED: *HR* Warfarin 2.5 MG TABLET PO ONE (18:00)
[2017-09-03 04:06] LABS: Hematocrit 37.9 % (37.5-50.1); Hemoglobin 12.1 g/dL (12.9-16.9); Mean Corpuscular HGB Conc 31.9 g/dL (31.6-35.5); Mean Corpuscular Hemoglobin 28.7 pg (28.0-33.3); Mean Corpuscular Volume 89.8 fL (83.0-100.0); Mean Platelet Volume 10.7 fL (9.4-12.4); Platelet Count 134 K/mcL (140-400); Red Blood Count 4.22 M/mcL (4.19-5.50); Red Cell Distribution Width 15.9 % (11.5-14.5)
[2017-09-03 04:12] LABS: INR 2.4; Prothrombin Time 25.9 Seconds (9.4-12.1)
[2017-09-03 04:27] LABS: BUN/Creatinine Ratio 26 (6-26); Blood Urea Nitrogen 21 mg/dL (8-23); Calcium 8.4 mg/dL (8.6-10.3); Carbon Dioxide 27 mEq/L (23-29); Chloride 105 mEq/L (98-107); Glucose 133 mg/dL (70-105); Osmolality,Calculated 289 (280-300); Potassium 3.9 mEq/L (3.5-5.1); Sodium 137 mEq/L (136-145); eGFR For African Americans > 60 (> 60); eGFR For Non-African Americans > 60 (> 60)
[2017-09-03] MEDS: Ipratropium/Albuterol Neb 3 ML IH SCH ×5 (04:41→19:28)
[2017-09-03] MEDS: LEVOTHYROXINE PO SCH (05:18)
[2017-09-03] MEDS: Budesonide/Formoterol 160/4.5 MDI IH SCH ×2 (07:30→19:28)
[2017-09-03] MEDS: Insulin LISPRO 300 UNITS/3 ML VIAL SQ SCH ×4 (08:27→20:49)
[2017-09-03] MEDS: FLUoxetine 20 MG CAPSULE PO SCH (08:33)
[2017-09-03] MEDS: Furosemide 40 MG/4 ML VIAL IVP SCH ×2 (08:33→17:36)
[2017-09-03] MEDS ORDERED: hydrOXYzine pamoate 25 MG CAPSULE PO PRN (12:27)
--- NOTE | 2017-09-03 17:29 | Internal Med Progress Note ---
Date of Encounter: 09/03/17 Time of Encounter: 10:40 - Assessment and plan (1) Afib Current Visit: Yes Status: Chronic Assessment and plan: Chronic. Rate controlled. Continue home dose of beta alf and warfarin. Continue telemetry. Denies chest pain. INR therapeutic. Qualifiers: Atrial fibrillation type: paroxysmal Qualified Code(s): I48.0 - Paroxysmal atrial fibrillation (2) DVT prophylaxis Current Visit: Yes Status: Acute Assessment and plan: Continue warfarin. INR is therapeutic at 2.4 (3) COPD (chronic obstructive pulmonary disease) Current Visit: Yes Status: Chronic Assessment and plan: No acute exacerbation at this time. Patient lungs are clear and diminished throughout. C Chest CTA shows no evidence of PE, there is sequela of old granulomatous disease and a noncalcified 3 mm nodule right upper lobe, recommend follow-up in one year. Also noted are calcified atheromatous plaque and coronary calcifications. IV antibiotics stopped. Steroids completed. Continue telemetry Qualifiers: COPD type: unspecified COPD Qualified Code(s): J44.9 - Chronic obstructive pulmonary disease, unspecified (4) Chronic respiratory failure with hypoxia Current Visit: Yes Status: Chronic Assessment and plan: Secondary to COPD, CHF. Patient is at baseline O2 demand. O2 as needed to maintain sats greater than 92%. Plan as above. (5) Acute exacerbation of CHF (congestive heart failure) Current Visit: Yes Status: Acute Assessment and plan: Echocardiogram dated 08/29/17 shows an LVEF of 65-70% with normal LV diastolic function is significant valvular dysfunction. Chest x-ray was negative for pulmonary vascular congestion. Continue diuresis with IV Lasix Strict I&O, daily weights. Fluid balance diuresis -1.7 L. Continue 1.5 L fluid restriction diet. O2 as needed to maintain sats greater than 92%. Qualifiers: Heart failure type: diastolic Qualified Code(s): I50.9 - Heart failure, unspecified (6) Tobacco abuse counseling Current Visit: Yes Status: Chronic Assessment and plan: Continue NicoDerm patch as needed. Rx for home. (7) CAD (coronary artery disease) Current Visit: Yes Status: Chronic Assessment and plan: Chronic. Patient denies chest pain today. Pt stress test completed today, gaited EF of 70%, there is a small sized, moderate intensity, fixed apical anterior apex defect, possibly due to prior infarct. Perfusion imaging was negative for ischemia. Recommend modifying risk factors and lifestyle. Continue telemetry, continue home medications. Qualifiers: Coronary Disease-Associated Artery/Lesion type: [place] artery [place] vs. transplanted heart: [place] heart Associated angina: without angina Qualified Code(s): I25.10 - Atherosclerotic heart disease of [place] coronary artery without angina pectoris (8) BECK (obstructive sleep apnea) Current Visit: Yes Status: Chronic Assessment and plan: Patient not always compliant with CPAP at night due to anxiety. Follow-up with primary care after discharge for reevaluation of BiPAP settings. (9) Diabetes mellitus Current Visit: Yes Status: Chronic Assessment and plan: Chronic. Well controlled. A1c is 6.5%. Continue sliding scale insulin, Accu-Cheks before meals and at bedtime, diabetic diet as well as fluid restriction and cardiac diet. Qualifiers: Diabetes mellitus type: type 2 Diabetes mellitus intermediate insulin use: with intermediate use Diabetes mellitus complication status: with unspecified complications Qualified Code(s): E11.8 - Type 2 diabetes mellitus with unspecified complications; Z79.4 - intermediate designer (current) use of insulin; Z79.4 - intermediate designer (current) use of insulin; Z79.4 - correction (current) use of insulin; Z79.4 - correction (current) use of insulin (10) PAD (peripheral artery disease) Current Visit: Yes Status: Chronic Assessment and plan: Chronic. (11) Hypothyroidism Current Visit: Yes Status: Chronic Assessment and plan: Chronic. Continue home medications. Qualifiers: Hypothyroidism type: unspecified Qualified Code(s): E03.9 - Hypothyroidism , unspecified (12) Morbid obesity Current Visit: Yes Status: Chronic Assessment and plan: Chronic. Continue to encourage lifestyle modifications. Low calorie, cardiac diet. Increase exercise. (13) Edema of upper extremity Current Visit: Yes Status: Acute Assessment and plan: Left upper extremity edema this morning. No redness or warmth. Decreased radial pulse to left side. IV and left arm on admission. Patient denies pain. Swelling extends from mid upper arm to hand. Doppler ordered and pending. - Time Spent With Patient Total time spent is greater than 50% in coordination of care (as documented) at patient's floor/unit and/or counseling patient: less than 15 minutes - Subjective Interval history: Patient was seen and assessed at bedside at 10:40 AM. Pt reports left arm and hand swelling since this a.m. He denies pain, he had an IV in that arm on admission. He denies shortness of breath and appears to be in no distress at rest. He denies any abdominal pain, headache, nausea, vomiting, diaphoresis. - Constitutional Vitals: Temp Pulse Resp BP Pulse Ox 98.1 F 67 17 147/82 98 09/03/17 16:05 09/03/17 16:05 09/03/17 16:05 09/03/17 16:05 09/03/17 16:05 General appearance: Present: cooperative, A&O X 3, morbidly obese, pleasant, no acute distress, answers questions appropriately - Head Head exam: Present: atraumatic, normal inspection, normocephalic - Eye Eye exam: Present: conjuntiva pink, sclera anicteric - Neck Neck exam general surgery: Present: supple, trachea midline. Absent: lymphadenopathy - Respiratory Respiratory exam: Present: CTAB. Absent: accessory muscle use, chest wall tenderness, rales, respiratory distress, rhonchi, wheezes - Cardiovascular Cardiovascular exam: Present: RRR, +S1, +S2. Absent: diastolic murmur, gallop, rubs, systolic murmur - GI/Abdominal GI/Abdominal exam: Present: normal bowel sounds, soft, no peritoneal signs. Absent: distended, tenderness - Extremities Exam Extremities exam: Present: warm, radial pulses palpable and symmetrical. Absent : calf tenderness, cyanotic, pedal edema - Neurological Exam Neurological exam: Present: alert, oriented X3, no focal deficits. Absent: facial droop, speech deficit - Skin Skin exam: Present: dry, intact, normal color, warm. Absent: rash Internal Medicine: Result - Labs CBC & Chem 7: 09/03/17 03:54 09/03/17 03:54 Labs: Short CBC 09/03/17 Range/Units 03:54 WBC 9.4 (4.3-11.1) K/mcL Hgb 12.1 L (12.9-16.9) g/dL Hct 37.9 (37.5-50.1) % Plt Count 134 L (140-400) K/mcL BMP 09/03/17 03:54 Sodium 137 Potassium 3.9 Chloride 105 Carbon Dioxide 27 BUN 21 Creatinine 0.82 Glucose 133 H Calcium 8.4 L - ABG Interpretation ABG results: PT/INR, D-dimer PT 25.9 Seconds (9.4-12.1) H 09/03/17 03:54 Consult Discharge Plan - Plan Referrals: Fartun Quinones, WINE CONSULTANT [Primary Care Provider] -
[2017-09-03] MEDS: Warfarin perPT PO SCH (17:36)
[2017-09-03] MEDS ORDERED: *HR* Warfarin 10 MG TABLET PO ONE (18:00)
[2017-09-03] MEDS: *HR* OxyCODONE/APAP 7.5/325 TABLET PO PRN (20:52)
[2017-09-03] MEDS: Levalbuterol Neb 1.25 MG/3 ML IH SCH (21:20)
[2017-09-04] MEDS: Levalbuterol Neb 1.25 MG/3 ML IH SCH ×2 (03:41→10:27)
[2017-09-04 04:25] LABS: INR 1.8; Prothrombin Time 20.1 Seconds (9.4-12.1)
[2017-09-04] MEDS: LEVOTHYROXINE PO SCH (06:19)
[2017-09-04 07:12] VITALS: BP 127/74
[2017-09-04] MEDS: FLUoxetine 20 MG CAPSULE PO SCH (07:53)
[2017-09-04] MEDS: Furosemide 40 MG/4 ML VIAL IVP SCH (07:53)
[2017-09-04] MEDS: Insulin LISPRO 300 UNITS/3 ML VIAL SQ SCH ×2 (07:53→13:28)
[2017-09-04] MEDS: Budesonide/Formoterol 160/4.5 MDI IH SCH (10:27)
--- NOTE | 2017-09-04 13:47 | Discharge Summary ---
- NOTES TO OUTPATIENT PROVIDER Notes to Outpatient Provider: Pt was admitted for chest pain/pressure, exertional dyspnea with worsening shortness of breath over one to 2 weeks prior to admission. He reported dizziness and weakness, fatigue and cough. Patient found to have acute exacerbation of CHF, treated with IV Lasix, strict intake and output, daily weights, 1.5 L fluid restriction. Patient also requires follow-up with. pulmonology for new CPAP, he states his is not working. Patient with left upper extremity edema on the day he was to be discharged. He denies any pain. Left upper extremity Doppler was positive for superficial cephalic vein upper extremity, partial thrombus in very small segment at the antecubital level. No DVT in left upper extremity. Will be treated with NSAIDs. Non-calcified 3mmg nodule in RUL, recommend follow up with chest CT in 1 year. Orders not resulted at time of discharge: Pending orders 08/31/17 16:18 NM bryant perf SPECT multi [NM] Routine 09/05/17 04:00 PT/INR [Prothrombin Time INR] [COAG] AM 0400 09/06/17 04:00 PT/INR [Prothrombin Time INR] [COAG] AM 0400 09/07/17 04:00 PT/INR [Prothrombin Time INR] [COAG] AM 0400 09/08/17 04:00 PT/INR [Prothrombin Time INR] [COAG] AM 0400 Date of Encounter: 09/04/17 Time of Encounter: 11:00 - Discharge Diagnosis (1) Afib Priority: Secondary Status: Chronic Assessment and Plan: Chronic. Rate controlled. Continue home dose of Carvedilol and warfarin. Denies chest pain, dizziness, SOB. Qualifiers: Atrial fibrillation type: paroxysmal Qualified Code(s): I48.0 - Paroxysmal atrial fibrillation (2) COPD (chronic obstructive pulmonary disease) Priority: Secondary Status: Chronic Assessment and Plan: No acute exacerbation at this time. Patient lungs are clear and diminished throughout. Chest CTA shows no evidence of PE, there is sequela of old granulomatous disease and a noncalcified 3 mm nodule right upper lobe, recommend follow-up in one year. Also noted are calcified atheromatous plaque and coronary calcifications. Pt completed course of steroids, IV antibiotics discontinued. Qualifiers: COPD type: unspecified COPD Qualified Code(s): J44.9 - Chronic obstructive pulmonary disease, unspecified (3) Chronic respiratory failure with hypoxia Priority: Secondary Status: Chronic Assessment and Plan: Secondary to COPD, CHF. Patient is at baseline O2 demand. (4) Acute exacerbation of CHF (congestive heart failure) Priority: Secondary Status: Acute Assessment and Plan: Echocardiogram dated 08/29/17 shows an LVEF of 65-70% with normal LV diastolic function is significant valvular dysfunction. Chest x-ray was negative for pulmonary vascular congestion. Continue home dose of Lasix. Pt should continue fluid restriction and daily weights at home. Qualifiers: Heart failure type: diastolic Qualified Code(s): I50.9 - Heart failure, unspecified (5) Tobacco abuse counseling Priority: Secondary Status: Chronic Assessment and Plan: Continue NicoDerm patch as needed. Pt declines nicotine replacement therapy at home. (6) CAD (coronary artery disease) Priority: Secondary Status: Chronic Assessment and Plan: Chronic. Patient denies chest pain or pressure today. Pt stress test completed, gated EF of 70%, there is a small sized, moderate intensity, fixed apical anterior apex defect, possibly due to prior infarct. Perfusion imaging was negative for ischemia. Recommend modifying risk factors and lifestyle. Continue home dose of BB, Warfarin Qualifiers: Coronary Disease-Associated Artery/Lesion type: [place] artery [place] vs. transplanted heart: [place] heart Associated angina: without angina Qualified Code(s): I25.10 - Atherosclerotic heart disease of [place] coronary artery without angina pectoris (7) BECK (obstructive sleep apnea) Priority: Secondary Status: Chronic Assessment and Plan: Pt states that his CPAP at home is not working and is to follow up with pulmonology for a sleep study. He was to have it done on 09/01, but he was inpatient and missed it. Will need to be rescheduled. (8) Diabetes mellitus Priority: Secondary Status: Chronic Assessment and Plan: Chronic. Well controlled. A1c is 6.5%. Continue home medications, accuchecks, as well as fluid restriction. 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 (10) Hypothyroidism Priority: Secondary Status: Chronic Assessment and Plan: Chronic. Monitor labs and continue home dose of Levothyroxine. Qualifiers: Hypothyroidism type: unspecified Qualified Code(s): E03.9 - Hypothyroidism , unspecified (11) Morbid obesity Priority: Secondary Status: Chronic Assessment and Plan: Chronic. Continue to encourage lifestyle modifications. (12) Edema of upper extremity Priority: Secondary Status: Acute Assessment and Plan: Left upper extremity edema, no redness or warmth, no pain, no change in ROM. Plan as above for SVT. (13) Superficial venous thrombosis of arm Priority: Secondary Status: Acute Assessment and Plan: Pt with LUE swelling since yesterday. No pain, normal ROM. Doppler shows positive superficial cephalic vein partial thrombus in very small segment of AC level. Negative DVT LUE. Aspirin 81mg po daily Qualifiers: Laterality: left Qualified Code(s): I82.612 - Acute embolism and thrombosis of superficial veins of left upper extremity (14) DVT prophylaxis Priority: Secondary Status: Acute Assessment and Plan: Continue warfarin and follow with PCP. Hospital course: Mr. Davila is a 62 year old male with past medical history of CHF, A. fib, COPD, morbid obesity is, lumbar stenosis, tobacco abuse, BECK, DDD. Patient was admitted to the hospital for shortness of breath, dizziness, dyspnea on exertion , fatigue, dry hacking cough for approximately 2 weeks prior to admission. Echocardiogram showed an LVEF of 65-70% with normal LV diastolic function and no sick significant valvular dysfunction. 2 day stress test showed a gated EF of 70% with a small sized, moderate intensity, fixed apical inferior and apical defect possibly due to prior infarct. Perfusion imaging was negative for ischemia. Patient had chest CTA is negative for PE. There is a noncalcified 3 mm nodule in right upper lobe follow-up is recommended 1 year. No other significant findings. Patient continued to improve, dizziness has improved, patient is at baseline O2 demand, dyspnea has improved. On day of admit patient was supposed to be discharged, yesterday, patient reported left arm edema that was new since the morning. Patient was found by Doppler to have positive superficial cephalic vein left upper extremity partial thrombus in a very small segment in the antecubital level. Negative for DVT. Edema appears to have improved today. Patient will be placed on aspirin 81 mg by mouth daily. He is also anticoagulated with warfarin and is therapeutic throughout the visit. Patient' s vital signs and labs are stable and within normal limits. Patient is appropriate for discharge. - Time Spent with Patient Total time spent providing and/or coordinating discharge services: - Discharge Medications Prescriptions: Aspirin Enteric Coated [Aspirin EC] 81 mg PO DAILY #30 tablet. hydrOXYzine pamoate [HydrOXYzine Pamoate] 25 mg PO BID PRN #10 capsule PRN Reason: Anxiety Home Medications: Albuterol Sulfate [Albuterol Inhaler] 2 puff IH Q4H PRN 08/04/16 [History] Docusate Sodium [Stool Softener] 100 mg PO BID PRN 08/04/16 [History] FLUoxetine HCl [Prozac] 20 mg PO DAILY 08/04/16 [History] Gabapentin [Neurontin] 600 mg PO TID PRN 08/04/16 [History] LORazepam [Ativan] 0.5 mg PO DAILY PRN 08/04/16 [History] Metformin HCl [Glucophage] 1,000 mg PO BID 08/04/16 [History] Nitroglycerin [Nitrostat] 0.4 mg SL Q5M PRN 08/04/16 [History] Omeprazole [PriLOSEC] 20 mg PO BIDAC 08/04/16 [History] Oxycodone HCl/Acetaminophen [Percocet 7.5-325 mg Tablet] 1 each PO Q6H PRN 08/04 [History] Pentoxifylline [TRENtal] 400 mg PO BID 08/04/16 [History] Potassium Chloride [K-Tab ER] 20 meq PO DAILY 08/04/16 [History] Pravastatin Sodium [Pravachol] 40 mg PO HS 08/04/16 [History] Levothyroxine Sodium [Synthroid] 275 mcg PO DAILY 12/26/16 [History] Carvedilol [Coreg] 6.25 mg PO BIDWM #60 tab 01/01/17 [Rx] Warfarin perPT [Coumadin perPT] 10 mg PO 1800 #30 tablet 01/01/17 [Rx] Budesonide/Formoterol 160/4.5 [Symbicort 160/4.5] 2 puff IH BIDR 08/28/17 [ History] Cyclobenzaprine [Flexeril] 10 mg PO TID 08/28/17 [History] Furosemide [Lasix] 80 mg PO BID 08/28/17 [History] Aspirin Enteric Coated [Aspirin EC] 81 mg PO DAILY #30 tablet. 09/04/17 [Rx] hydrOXYzine pamoate [HydrOXYzine Pamoate] 25 mg PO BID PRN #10 capsule 09/04/17 [Rx] Allergies/Adverse Reactions: 3 Allergy/AdvReac Type Severity Reaction Status Date / Time Amoxicillin [From Augmentin] Allergy Palpitation Verified 08/04/16 13:05 s clavulanic acid Allergy Palpitation Verified 08/04/16 13:05 [From Augmentin] s meperidine [From Demerol] Allergy Palpitation Verified 08/04/16 13:05 s sulfamethoxazole Allergy Rash Verified 08/04/16 13:05 [From Bactrim] trimethoprim [From Bactrim] Allergy Rash Verified 08/04/16 13:05 Date of admission: 08/28/17 20:47 Primary care physician: Fartun Quinones CNP Consults: 08/29/17 09:06 Consult to Nurse Navigator [CONS] Routine Comment: 09/01/17 09:46 Consult to Invasive Line Access Team [CONS] Routine Reason for Consult: limited access Line Type: EPIV Discharging clinician: Padmaja Quan Anticipated date of discharge: 09/04/17 - Constitutional Vitals: Temp Pulse Resp BP Pulse Ox 98.2 F 65 16 127/74 97 09/04/17 07:11 09/04/17 07:11 09/04/17 10:27 09/04/17 07:11 09/04/17 10:27 General appearance: Present: cooperative, A&O X 3, morbidly obese, pleasant, no acute distress, answers questions appropriately - Head Head exam: Present: atraumatic, normal inspection, normocephalic - Eye Eye exam: Present: normal appearance, conjuntiva pink, sclera anicteric - Neck Neck exam general surgery: Present: normal inspection, supple, trachea midline. Absent: lymphadenopathy, tenderness - Respiratory Respiratory exam: Present: decreased breath sounds, CTAB. Absent: accessory muscle use, chest wall tenderness, rales, respiratory distress, rhonchi, wheezes - Cardiovascular Cardiovascular exam: Present: RRR, +S1, +S2. Absent: diastolic murmur, gallop, rubs, systolic murmur - GI/Abdominal GI/Abdominal exam: Present: distended, normal bowel sounds, soft. Absent: hepatomegaly, tenderness - Extremities Exam Extremities exam: Present: normal capillary refill, normal inspection, warm, radial pulses palpable and symmetrical. Absent: calf tenderness, cyanotic, pedal edema, tenderness - Neurological Exam Neurological exam: Present: alert, oriented X3, no focal deficits. Absent: facial droop, speech deficit - Skin Skin exam: Present: dry, intact, normal color, warm. Absent: rash - Patient Status Disposition: Home, Self-Care Condition: Fair Functional capacity at discharge: independent ambulation Overall status at discharge: patient is progressing back to baseline - Discharge Instructions Follow Up With: Fartun Quinones CNP [Primary Care Provider] - 09/17/17 11:15 am Additional Instructions: Please follow up with Fartun Quinones in the next 5-7 days for a recheck. Your prescriptions are at your pharmacy. Do not take Hydroxyzine with your other anxiety medications. Take your other medications as directed. Return to the ER as needed for any problems or concerns, or if your symptoms return or worsen. Return to your normal activities as tolerated Low sodium, lower calorie, 2 liter fluid restriction diet. - Diet and Activity Activity: increase activity as tolerated Diet: diabetic diet, low fat, low cholesterol, low salt diet
--- NOTE | 2017-09-04 15:10 | Electrocardiograph Report ---
[address] [place], [place] [address] Test Date: 2017-09-03 Pat Name: Clemente Davila Department: 113 Room: [facility] Gender: M Line Service Technician: : 1955 Requested By: [id number] Order Number: [id number] Reading MD: Naheed Schaffer Measurements Intervals [place] Rate: 62 P: 46 GA: 143 QRS: -11 QRSD: 113 T: 32 QT: 405 QTc: 411 Interpretive Statements SINUS RHYTHM LOW QRS VOLTAGE IN PRECORDIAL LEADS MODERATE INTRAVENTRICULAR CONDUCTION DELAY Electronically Signed On 09-04-2017 15:08:43 EDT by Naheed Schaffer
[2017-09-04] MEDS ORDERED: *HR* Warfarin 10 MG TABLET PO ONE (18:00)
== END 2017-09-04 14:54 | disposition home or self-care (01) | DRG 292 ==
LOC: EMEROO 17:02 → 3BNU 17:02
PROVIDERS: ADMIT Internal Medicine; ATTEND Internal Medicine

== ENCOUNTER 2017-09-08 14:28 | Inpatient (IN) ==
[2017-09-08] MEDS ORDERED: Furosemide 40 MG/4 ML VIAL IVP ONE (15:24)
[2017-09-08] MEDS ORDERED: Ipratropium/Albuterol Neb 3 ML IH ONE (15:24)
[2017-09-08] MEDS ORDERED: methylPREDNISolone 125 MG/2 ML VIAL IVP ONE (15:24)
--- NOTE | 2017-09-08 15:26 | Emergency Department Note ---
Disposition Clinical Impression: COPD (chronic obstructive pulmonary disease) Qualifiers: COPD type: unspecified COPD Qualified Code(s): J44.9 - Chronic obstructive pulmonary disease, unspecified Community acquired pneumonia Qualifiers: Laterality: unspecified laterality Qualified Code(s): J18.9 - Pneumonia, unspecified organism Disposition: Admitted As Inpatient Condition: Fair Referrals: Fartun Quinones, COMPOUND WORKER [Primary Care Provider] - Forms: ED Satisfaction Letter Time of Disposition: 17:05 SOB HPI - General Chief Complaint: ED Shortness of Breath/Dyspnea Stated Complaint: COPD EVERT Time Seen by Provider: 09/08/17 15:22 Source: patient Mode of arrival: ambulatory Limitations: no limitations Nursing Notes Reviewed: Yes Vital Signs Reviewed: Yes - History of Present Illness 62-year-old with a history of CHF and COPD comes in with increasing shortness of breath. Audible wheezing on arrival. Nuclear stress test done this month shows an EF of 70% no ischemic change. 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 Severity: moderate Consistency/Duration: constant Improves with: nothing Worsens with: nothing Known history of: COPD Associated symptoms: Denies: chest pain Treatment prior to arrival: none Cough present: Yes Cough Description: Involuntary Cough Frequency: Intermittent - Related Data Home Medications Medication Instructions Recorded Confirmed Albuterol Sulfate [Albuterol 2 puff IH Q4H PRN 08/04/16 09/08/17 Inhaler] Docusate Sodium [Stool Softener] 100 mg PO BID PRN 08/04/16 09/08/17 FLUoxetine HCl [Prozac] 20 mg PO DAILY 08/04/16 09/08/17 Gabapentin [Neurontin] 600 mg PO TID PRN 08/04/16 09/08/17 LORazepam [Ativan] 0.5 mg PO DAILY PRN 08/04/16 09/08/17 Metformin HCl [Glucophage] 1,000 mg PO BID 08/04/16 09/08/17 Nitroglycerin [Nitrostat] 0.4 mg SL Q5M PRN 08/04/16 09/08/17 Omeprazole [PriLOSEC] 20 mg PO BIDAC 08/04/16 09/08/17 Oxycodone HCl/Acetaminophen 1 each PO Q6H PRN 08/04/16 09/08/17 [Percocet 7.5-325 mg Tablet] Pentoxifylline [TRENtal] 400 mg PO BID 08/04/16 09/08/17 Potassium Chloride [K-Tab ER] 20 meq PO DAILY 08/04/16 09/08/17 Pravastatin Sodium [Pravachol] 40 mg PO HS 08/04/16 09/08/17 Levothyroxine Sodium [Synthroid] 275 mcg PO DAILY 12/26/16 09/08/17 Budesonide/Formoterol 160/4.5 2 puff IH BIDR 08/28/17 09/08/17 [Symbicort 160/4.5] Cyclobenzaprine [Flexeril] 10 mg PO TID 08/28/17 09/08/17 Furosemide [Lasix] 80 mg PO BID 08/28/17 09/08/17 Ipratropium Neb [Atrovent Neb] 0.5 mg IH Q8H PRN 09/08/17 09/08/17 Previous Rx's Medication Instructions Recorded Carvedilol [Coreg] 6.25 mg PO BIDWM #60 tab 01/01/17 Warfarin perPT [Coumadin perPT] 10 mg PO 1800 #30 tablet 01/01/17 Aspirin Enteric Coated [Aspirin EC] 81 mg PO DAILY #30 tablet. 09/04/17 hydrOXYzine pamoate [HydrOXYzine 25 mg PO BID PRN #10 capsule 09/04/17 Pamoate] Allergies Allergy/AdvReac Type Severity Reaction Status Date / Time Amoxicillin [From Augmentin] Allergy Palpitation Verified 08/04/16 13:05 s clavulanic acid Allergy Palpitation Verified 08/04/16 13:05 [From Augmentin] s meperidine [From Demerol] Allergy Palpitation Verified 08/04/16 13:05 s sulfamethoxazole Allergy Rash Verified 08/04/16 13:05 [From Bactrim] trimethoprim [From Bactrim] Allergy Rash Verified 08/04/16 13:05 Constitutional: Denies: fever, chills, weakness, weight change Eyes: Denies: eye pain, eye discharge, vision change ENT ED: Denies: ear pain, throat pain, dental pain, hearing loss, epistaxis, congestion, dysphagia Cardiovascular: Denies: chest pain, palpitations, dyspnea on exertion, edema, syncope Respiratory: Reports: dyspnea, wheezes. Denies: cough, hemoptysis, stridor Gastrointestinal: Denies: abdominal pain, nausea, vomiting, diarrhea, constipation, hematemesis, melena, hematochezia Genitourinary: Denies: urgency, dysuria, frequency, hematuria Musculoskeletal: Denies: back pain, neck pain, arthralgia, myalgia Integumentary: Denies: rash, abrasion, lesions Neurological: Denies: headache, weakness, numbness, paresthesias, confusion, abnormal gait, vertigo Psychiatric: Denies: anxiety, depression, suicidal thoughts, homicidal thoughts , auditory hallucinations, visual hallucinations Endocrine: Denies: fatigue Hematological/Lymphatic: Denies: easy bleeding, easy bruising Allergic/Immunologic: Denies: facial swelling, urticaria Past Medical History - Past Medical History Medical history: Reports: asthma, atrial fibrillation, CHF, COPD, coronary artery disease, diabetes, myocardial infarction, peripheral artery disease, thyroid disease, other Surgical history: Reports: angioplasty/stent, orthopedic, other (left hand surgery) Psychiatric history: Reports: no psych history - Social History Smoking Status: Current every day smoker Smokeless Tobacco Status: No Alcohol use: Reports: rarely Drug use: Reports: none Physical Exam - General Limitations: no limitations General appearance: alert, in no apparent distress - Head Head exam: atraumatic, normocephalic, normal inspection - Eye Eye exam: Present: normal appearance, PERRL, EOMI - ENT ENT exam: normal exam, normal oropharynx, mucous membranes moist - Neck Neck exam: Present: normal inspection, full ROM, trachea midline - Chest Chest inspection: Present: normal inspection, symmetric chest wall rise - Respiratory Respiratory exam: Present: wheezes - Cardiovascular Cardiovascular exam: Present: regular rate, normal rhythm, normal heart sounds - Abdominal Exam Abdominal exam: Present: soft, Non-Tender. Absent: tenderness, distention, guarding, rebound, rigidity - Extremities Exam Extremities exam: Present: normal inspection, full ROM. Absent: tenderness, pedal edema - Expanded Lower Extremity Exam Neurovascular/Tendon exam: Absent: motor deficit, sensory deficit, tendon deficit Gait: observed and normal - Back Exam Back exam: Present: normal inspection, full ROM. Absent: tenderness - Neurological Exam Neurological exam: Present: alert, oriented X3 - Psychiatric Psychiatric exam: Present: normal affect, normal mood - Skin Skin exam: Present: warm, dry, intact, normal color Course - Reevaluation(s) Reevaluation #1: 62-year-old with history COPD CHF comes in with cough congestion chest x-ray shows possible pneumonia. Patient will be admitted further evaluation and treatment. Time: 17:04 - Consultations Consultation #1: Discussed with Dr. Merchant, admit Time: 17:04 Vital Signs Temperature 98 F 09/08/17 14:29 Pulse Rate 78 09/08/17 14:29 Respiratory Rate 18 09/08/17 14:29 Blood Pressure 133/84 09/08/17 14:29 O2 Sat by Pulse Oximetry 94 09/08/17 14:29 Temperature 98 F 09/08/17 14:29 Pulse Rate 78 09/08/17 14:29 Respiratory Rate 16 09/08/17 15:49 Blood Pressure 133/84 09/08/17 14:29 O2 Sat by Pulse Oximetry 97 09/08/17 15:49 Oxygen Delivery Oxygen Delivery Room Air Shortness of Breath/Dyspnea - Lab Data Lab results reviewed: Yes I reviewed the patient's lab results. Result diagrams: 09/08/17 14:33 09/08/17 14:33 Lab Results 09/08/17 09/08/17 09/08/17 Range/Units 14:33 14:33 14:33 WBC 9.1 (4.3-11.1) K/mcL RBC 5.09 (4.19-5.50) M/mcL Hgb 14.4 D (12.9-16.9) g/dL Hct 45.3 (37.5-50.1) % MCV 89.0 (83.0-100.0) fL MCH 28.3 (28.0-33.3) pg MCHC 31.8 (31.6-35.5) g/dL RDW 15.9 H (11.5-14.5) % Plt Count 163 (140-400) K/mcL MPV 10.6 (9.4-12.4) fL Immature Gran % 0.6 (0-4) % Seg Neutrophils % 64.8 % Lymphocytes % 21.6 % Monocytes % 11.7 % Eosinophils % 1.0 % Basophils % 0.3 % Neutrophils # 5.9 (1.6-8.9) K/mcL Lymphocytes # 2.0 (0.6-4.6) K/mcL Monocytes # 1.1 (0.0-1.3) K/mcL Eosinophils # 0.1 (0.0-0.6) K/mcL Basophils # 0.0 (0.0-0.2) K/mcL Sodium 138 (136-145) mEq/L Potassium 4.0 (3.5-5.1) mEq/L Chloride 103 (98-107) mEq/L Carbon Dioxide 26 (23-29) mEq/L BUN 14 (8-23) mg/dL Creatinine 0.80 (0.70-1.30) mg/dL Est GFR ( Amer) > 60 (> 60) Est GFR (Non-Af Amer) > 60 (> 60) BUN/Creatinine Ratio 18 (6-26) Glucose 119 H (70-105) mg/dL Calculated Osmolality 288 (280-300) Lactic Acid (0.5-2.2) mmol/L Calcium 9.3 (8.6-10.3) mg/dL Troponin I < 0.03 (< 0.04) ng/mL B-Natriuretic Peptide 47 (Less than 100) pg/mL 09/08/17 Range/Units 15:31 WBC (4.3-11.1) K/mcL RBC (4.19-5.50) M/mcL Hgb (12.9-16.9) g/dL Hct (37.5-50.1) % MCV (83.0-100.0) fL MCH (28.0-33.3) pg MCHC (31.6-35.5) g/dL RDW (11.5-14.5) % Plt Count (140-400) K/mcL MPV (9.4-12.4) fL Immature Gran % (0-4) % Seg Neutrophils % % Lymphocytes % % Monocytes % % Eosinophils % % Basophils % % Neutrophils # (1.6-8.9) K/mcL Lymphocytes # (0.6-4.6) K/mcL Monocytes # (0.0-1.3) K/mcL Eosinophils # (0.0-0.6) K/mcL Basophils # (0.0-0.2) K/mcL Sodium (136-145) mEq/L Potassium (3.5-5.1) mEq/L Chloride (98-107) mEq/L Carbon Dioxide (23-29) mEq/L BUN (8-23) mg/dL Creatinine (0.70-1.30) mg/dL Est GFR ( Amer) (> 60) Est GFR (Non-Af Amer) (> 60) BUN/Creatinine Ratio (6-26) Glucose (70-105) mg/dL Calculated Osmolality (280-300) Lactic Acid 1.0 (0.5-2.2) mmol/L Calcium (8.6-10.3) mg/dL Troponin I (< 0.04) ng/mL B-Natriuretic Peptide (Less than 100) pg/mL - Radiology Data Radiology results reviewed: Yes I reviewed the patient's radiology results. Chest X-Ray 09/08/17 14:33 IMPRESSION: Mildly improved pulmonary aeration with otherwise persistent vascular congestion and borderline edema. Patchy left airspace opacities at the lung base may reflect atelectasis, aspiration or pneumonia. D/ / Aramis Devries / Aramis Devries Interpreting Provider: Aramis Devries - EKG Data EKG attestation: Yes I reviewed and interpreted this EKG. EKG shows normal: Reports: sinus rhythm Rate: Reports: normal Rhythm: Reports: NSR [place]/QRS: Reports: normal Interpretation: Reports: no acute changes
[2017-09-08 15:39] LABS: Basophils % 0.3 %; Eosinophils # 0.1 K/mcL (0.0-0.6); Hematocrit 45.3 % (37.5-50.1); Immature Granulocytes % 0.6 % (0-4); Lymphocytes % 21.6 %; Mean Corpuscular HGB Conc 31.8 g/dL (31.6-35.5); Mean Corpuscular Hemoglobin 28.3 pg (28.0-33.3); Mean Platelet Volume 10.6 fL (9.4-12.4); Monocytes # 1.1 K/mcL (0.0-1.3); Monocytes % 11.7 %; Neutrophils # 5.9 K/mcL (1.6-8.9); Platelet Count 163 K/mcL (140-400); Red Blood Count 5.09 M/mcL (4.19-5.50); Red Cell Distribution Width 15.9 % (11.5-14.5); Segmented Neutrophils % 64.8 %
[2017-09-08 15:43] LABS: Hemoglobin 14.4 g/dL (12.9-16.9)
[2017-09-08 15:59] LABS: BUN/Creatinine Ratio 18 (6-26); Blood Urea Nitrogen 14 mg/dL (8-23); Calcium 9.3 mg/dL (8.6-10.3); Carbon Dioxide 26 mEq/L (23-29); Chloride 103 mEq/L (98-107); Glucose 119 mg/dL (70-105); Osmolality,Calculated 288 (280-300); Sodium 138 mEq/L (136-145); Troponin I < 0.03 ng/mL (< 0.04); eGFR For African Americans > 60 (> 60); eGFR For Non-African Americans > 60 (> 60)
[2017-09-08] MEDS ORDERED: Levofloxacin 750 MG/150 ML 750 MG/150 ML BAG IVPB ONE (16:21)
--- NOTE | 2017-09-08 19:16 | Internal Med History&Physical ---
Date of Encounter: 09/08/17 Time of Encounter: 18:00 Internal Medicine - H&P: HPI Chief complaint: Shortness of breath Admitted From: Home Plans for Post Hospital Care: Home History of present illness: Patient is a 62-year-old male with past medical history significant for O2 dependent COPD, ischemic cardiomyopathy, diabetes, peripheral arterial disease and hypothyroid who presents to the ER on 09/08/17 due to shortness of breath. Patient was recently discharged on 09/04/17 with similar symptoms and states no improvement with shortness of breath so he decided to come back to the ER for evaluation. In the ER, patient was without leukocytosis and afebrile. Chest x-ray showed patchy left upper these in the left lower lobe concerning for pneumonia. Patient will be admitted to medical surgical floor for COPD exacerbation secondary to pneumonia. Past Med Surg Social Fam HX - Past Medical History Medical history: asthma, atrial fibrillation, CHF, COPD, coronary artery disease , diabetes, myocardial infarction, peripheral artery disease, thyroid disease, other Psychiatric history: no psych history - Past Surgical History Surgical History: angioplasty/stent, orthopedic, other (left hand surgery) - Social History Smoking Status: Current every day smoker Smokeless Tobacco Status: No Alcohol use: rarely Drug use: none - Family History Mother Family Member Ethnicity: Non- Living Status: Hx Family Cardiac Disorders: No Hx Family Respiratory Disorders: No Father Family Member Ethnicity: Non- Living Status: Hx Family Cardiac Disorders: No Hx Family Respiratory Disorders: No Hx Family Cancer: Yes (Pancreatic) Brother Family Member Ethnicity: Non- Living Status: Still Living Hx Family Cardiac Disorders: Yes (HD, Pacemaker) Sister Family Member Ethnicity: Non- Living Status: Still Living Internal Medicine - H&P: Meds Albuterol Sulfate [Albuterol Inhaler] 2 puff IH Q4H PRN 08/04/16 [History] Docusate Sodium [Stool Softener] 100 mg PO BID PRN 08/04/16 [History] FLUoxetine HCl [Prozac] 20 mg PO DAILY 08/04/16 [History] Gabapentin [Neurontin] 600 mg PO TID PRN 08/04/16 [History] LORazepam [Ativan] 0.5 mg PO DAILY PRN 08/04/16 [History] Metformin HCl [Glucophage] 1,000 mg PO BID 08/04/16 [History] Nitroglycerin [Nitrostat] 0.4 mg SL Q5M PRN 08/04/16 [History] Omeprazole [PriLOSEC] 20 mg PO BIDAC 08/04/16 [History] Oxycodone HCl/Acetaminophen [Percocet 7.5-325 mg Tablet] 1 each PO Q6H PRN 08/04 [History] Pentoxifylline [TRENtal] 400 mg PO BID 08/04/16 [History] Potassium Chloride [K-Tab ER] 20 meq PO DAILY 08/04/16 [History] Pravastatin Sodium [Pravachol] 40 mg PO HS 08/04/16 [History] Levothyroxine Sodium [Synthroid] 275 mcg PO DAILY 12/26/16 [History] Carvedilol [Coreg] 6.25 mg PO BIDWM #60 tab 01/01/17 [Rx] Warfarin perPT [Coumadin perPT] 10 mg PO 1800 #30 tablet 01/01/17 [Rx] Budesonide/Formoterol 160/4.5 [Symbicort 160/4.5] 2 puff IH BIDR 08/28/17 [ History] Cyclobenzaprine [Flexeril] 10 mg PO TID 08/28/17 [History] Furosemide [Lasix] 80 mg PO BID 08/28/17 [History] Aspirin Enteric Coated [Aspirin EC] 81 mg PO DAILY #30 tablet. 09/04/17 [Rx] hydrOXYzine pamoate [HydrOXYzine Pamoate] 25 mg PO BID PRN #10 capsule 09/04/17 [Rx] Ipratropium Neb [Atrovent Neb] 0.5 mg IH Q8H PRN 09/08/17 [History] 3 Allergy/AdvReac Type Severity Reaction Status Date / Time Amoxicillin [From Augmentin] Allergy Palpitation Verified 08/04/16 13:05 s clavulanic acid Allergy Palpitation Verified 08/04/16 13:05 [From Augmentin] s meperidine [From Demerol] Allergy Palpitation Verified 08/04/16 13:05 s sulfamethoxazole Allergy Rash Verified 08/04/16 13:05 [From Bactrim] trimethoprim [From Bactrim] Allergy Rash Verified 08/04/16 13:05 All Systems PM: A 10-system review of systems was performed and is negative for pertinent findings except as documented above in the HPI. - Constitutional Vitals: Temp Pulse Resp BP Pulse Ox 97.9 F 74 15 130/87 94 09/08/17 18:35 09/08/17 18:35 09/08/17 18:35 09/08/17 18:35 09/08/17 18:52 General appearance: Present: A&O X 3, no acute distress - Eye Eye exam: Present: normal appearance - ENT ENT exam: Present: mucous membranes moist - Respiratory Respiratory exam: Present: CTAB. Absent: accessory muscle use, rales, rhonchi, wheezes - Cardiovascular Cardiovascular exam: Present: RRR, +S1, +S2. Absent: diastolic murmur, gallop, rubs, systolic murmur - GI/Abdominal GI/Abdominal exam: Present: normal bowel sounds, soft, no peritoneal signs. Absent: distended, tenderness - Extremities Exam Extremities exam: Present: pedal edema - Neurological Exam Neurological exam: Present: oriented X3 - Psychiatric Psychiatric exam: Present: normal mood - Skin Skin exam: Present: normal color Internal Med - H&P Results - Labs CBC & Chem 7: 09/08/17 14:33 09/08/17 14:33 - Assessment and plan (1) HCAP (healthcare-associated pneumonia) Current Visit: Yes Status: Acute Assessment and plan: In the ER, patient was without leukocytosis and afebrile. Chest x-ray showed patchy left upper these in the left lower lobe concerning for pneumonia. Patient was discharged on 09/08/17 Will cover for HCAP (2) Acute exacerbation of chronic obstructive airways disease Current Visit: No Status: Acute Assessment and plan: Secondary to the above Cover with dual nebs and IV Solu-Medrol Patient has been placed on BiPAP which he will wear overnight (3) Diabetes mellitus Current Visit: No Status: Chronic Assessment and plan: Continue home medication Qualifiers: Diabetes mellitus type: type 2 Diabetes mellitus help desk manager insulin use: with help desk manager use Diabetes mellitus complication status: with unspecified complications Qualified Code(s): E11.8 - Type 2 diabetes mellitus with unspecified complications; Z79.4 - supervisor sanding (current) use of insulin; Z79.4 - supervisor sanding (current) use of insulin; Z79.4 - supervisor sanding (current) use of insulin; Z79.4 - supervisor sanding (current) use of insulin (4) Morbid obesity with BMI of 60.0-69.9, adult Current Visit: No Status: Chronic Assessment and plan: BMI 58 (5) BECK (obstructive sleep apnea) Current Visit: No Status: Chronic Assessment and plan: NIPPV qhs (6) DVT prophylaxis Current Visit: No Status: Acute Assessment and plan: Heparin subcutaneous - Time Spent With Patient Total time spent is greater than 50% in coordination of care (as documented) at patient's floor/unit and/or counseling patient:
[2017-09-08] MEDS ORDERED: Naloxone 0.4 MG/ML INJ IVP PRN (19:27)
[2017-09-08 19:32] LABS: ABG Base Excess 1 mEq/L (-2 to 3); ABG HCO3 25 mEq/L (21-27); ABG Oxygen Saturation 97 % (95-98); ABG PCO2 37 mmHg (35-45); ABG PH 7.43 pH Units (7.32-7.45); ABG PO2 87 mmHg (85-104); ABG TCO2 26 mEq/L (20-26)
[2017-09-08] MEDS ORDERED: Nitroglycerin 0.4 MG TAB.SUBL SL PRN (19:34)
[2017-09-08] MEDS ORDERED: Gabapentin 300 MG CAPSULE PO PRN (19:34)
[2017-09-08] MEDS ORDERED: Ipratropium Neb 0.5 MG NEBULIZER IH PRN (19:34)
[2017-09-08] MEDS: Ipratropium/Albuterol Neb 3 ML IH SCH ×2 (20:23→23:27)
[2017-09-08] MEDS: Budesonide/Formoterol 160/4.5 MDI IH SCH (20:23)
[2017-09-08] MEDS: Cefepime HCl 2,000 MG in Water for inj. (sterile) 20 ML 20 ML IVP SCH (21:32)
[2017-09-08] MEDS: Furosemide 40 MG TABLET PO SCH (21:32)
[2017-09-08] MEDS: methylPREDNISolone 125 MG/2 ML VIAL IVP SCH (23:21)
[2017-09-09 00:29] LABS: INR 2.2; Prothrombin Time 23.9 Seconds (9.4-12.1)
[2017-09-09] MEDS: Ipratropium/Albuterol Neb 3 ML IH SCH ×5 (03:54→20:44)
[2017-09-09] MEDS: Cefepime HCl 2,000 MG in Water for inj. (sterile) 20 ML 20 ML IVP SCH ×3 (04:19→22:10)
[2017-09-09 05:37] LABS: Basophils % 0.2 %; Hematocrit 41.5 % (37.5-50.1); Hemoglobin 13.7 g/dL (12.9-16.9); Immature Granulocytes % 0.6 % (0-4); Lymphocytes # 1.3 K/mcL (0.6-4.6); Lymphocytes % 20.1 %; Mean Corpuscular Hemoglobin 28.8 pg (28.0-33.3); Mean Corpuscular Volume 87.4 fL (83.0-100.0); Mean Platelet Volume 10.8 fL (9.4-12.4); Monocytes # 0.2 K/mcL (0.0-1.3); Monocytes % 2.3 %; Platelet Count 160 K/mcL (140-400); Red Blood Count 4.75 M/mcL (4.19-5.50); Red Cell Distribution Width 15.8 % (11.5-14.5); Segmented Neutrophils % 76.8 %
[2017-09-09 05:57] LABS: BUN/Creatinine Ratio 20 (6-26); Blood Urea Nitrogen 15 mg/dL (8-23); Calcium 9.3 mg/dL (8.6-10.3); Carbon Dioxide 21 mEq/L (23-29); Chloride 102 mEq/L (98-107); Glucose 193 mg/dL (70-105); Osmolality,Calculated 286 (280-300); Sodium 135 mEq/L (136-145); eGFR For African Americans > 60 (> 60); eGFR For Non-African Americans > 60 (> 60)
--- NOTE | 2017-09-09 07:06 | Electrocardiograph Report ---
[place] [id number] Test Date: 2017-09-08 Pat Name: Clemente Davila Department: 104 Room: 3A Gender: M Senior Erp Consultant: IBRAHIMA : 1955 Requested By: Selene Melchor Order Number: [id number] Reading MD: Ray Alexis Measurements Intervals [place] Rate: 72 P: -3 VA: 145 QRS: -16 QRSD: 94 T: 46 QT: 379 QTc: 403 Interpretive Statements SINUS RHYTHM LOW QRS VOLTAGE IN PRECORDIAL LEADS Electronically Signed On 09-09-2017 7:04:56 EDT by Ray Alexis
[2017-09-09] MEDS: Budesonide/Formoterol 160/4.5 MDI IH SCH ×2 (07:55→20:45)
[2017-09-09] MEDS: Levofloxacin 750 MG/150 ML 750 MG/150 ML BAG IVPB SCH (09:03)
[2017-09-09] MEDS: methylPREDNISolone 125 MG/2 ML VIAL IVP SCH (09:03)
[2017-09-09] MEDS: FLUoxetine 20 MG CAPSULE PO SCH (09:04)
[2017-09-09] MEDS: Aspirin Enteric Coated 81 MG Tablet PO SCH ×2 (09:04→09:07)
[2017-09-09] MEDS: Furosemide 40 MG TABLET PO SCH ×2 (09:04→16:44)
[2017-09-09] MEDS: *HR* OxyCODONE/APAP 7.5/325 TABLET PO PRN ×2 (09:16→22:29)
[2017-09-09 10:02] LABS: INR 1.9; Prothrombin Time 21.1 Seconds (9.4-12.1)
[2017-09-09] MEDS ORDERED: Dextrose Gel 15 GM/37.5 ML TUBE PO PRN ×2 (15:06)
[2017-09-09] MEDS ORDERED: D5% in Water 1,000 ML IVC PRN (15:06)
[2017-09-09] MEDS ORDERED: *HR* Dextrose 50 % in Water (Syg) 50 ML SYRINGE IVP PRN (15:06)
--- NOTE | 2017-09-09 15:57 | Internal Med Progress Note ---
Date of Encounter: 09/09/17 Time of Encounter: 15:56 - Assessment and plan (1) Acute exacerbation of chronic obstructive airways disease Current Visit: Yes Status: Acute Assessment and plan: Patient continues to wheeze. Continue bronchodilators and steroids. Continue O2 supplementation. (2) HCAP (healthcare-associated pneumonia) Current Visit: Yes Status: Acute Assessment and plan: Suspected pneumonia. On Levaquin. Chest x-ray actually shows improved pulmonary aeration. Patient does have left basal obesities concerning for atelectasis or pneumonia. Will continue Levaquin for now. Does not have leukocytosis or any other toxic signs suggestive of worsening pneumonia. Continue O2 supplementation. (3) Acute and chronic respiratory failure Current Visit: Yes Status: Acute Assessment and plan: Continue O2 supplementation. Currently on 3 L O2 supplementation. Qualifiers: Respiratory failure complication: hypoxia Qualified Code(s): J96.21 - Acute and chronic respiratory failure with hypoxia (4) Morbid obesity with BMI of 60.0-69.9, adult Current Visit: No Status: Chronic (5) BECK (obstructive sleep apnea) Current Visit: No Status: Chronic Assessment and plan: Follow-up with pulmonology. Reschedule sleep study. Use CPAP while in the hospital (6) Diabetes mellitus Current Visit: Yes Status: Chronic Assessment and plan: Blood sugars are trending up. Will place patient on sliding scale coverage. Qualifiers: Diabetes mellitus type: type 2 Diabetes mellitus intermediate insulin use: with buttermaker continuous churn use Diabetes mellitus complication status: with unspecified complications Qualified Code(s): E11.8 - Type 2 diabetes mellitus with unspecified complications; Z79.4 - terminal computer operator (current) use of insulin; Z79.4 - terminal computer operator (current) use of insulin; Z79.4 - intermediate (current) use of insulin; Z79.4 - intermediate (current) use of insulin (7) DVT prophylaxis Current Visit: No Status: Acute Assessment and plan: Patient is on Coumadin. Will continue. Keep INR between 2 and 3 - Time Spent With Patient Total time spent is greater than 50% in coordination of care (as documented) at patient's floor/unit and/or counseling patient: - Subjective Interval history: Patient evaluated earlier today. Continues to have shortness of breath and wheezing. He is concerned that he is not getting any better. No fever reported overnight. Has been having trouble getting his BiPAP fixed at home. He was also scheduled for sleep study but was hospitalized here during that time it was scheduled. No fever reported overnight. - Constitutional Vitals: Temp Pulse Resp BP Pulse Ox 97.6 F 89 18 119/71 93 09/09/17 10:31 09/09/17 10:31 09/09/17 15:51 09/09/17 10:31 09/09/17 15:51 General appearance: Present: A&O X 3, morbidly obese, no acute distress - Neck Neck exam general surgery: Present: supple, trachea midline. Absent: lymphadenopathy - Respiratory Respiratory exam: Present: prolonged expiratory phase, rhonchi, wheezes, tachypnea. Absent: accessory muscle use, rales - Cardiovascular Cardiovascular exam: Present: RRR, +S1, +S2. Absent: diastolic murmur, gallop, rubs, systolic murmur - GI/Abdominal GI/Abdominal exam: Present: normal bowel sounds, soft, no peritoneal signs. Absent: distended, tenderness - Extremities Exam Extremities exam: Present: warm, radial pulses palpable and symmetrical. Absent : calf tenderness, cyanotic, pedal edema - Neurological Exam Neurological exam: Present: alert, oriented X3, no focal deficits. Absent: facial droop, speech deficit - Skin Skin exam: Present: dry, intact Internal Medicine: Result - Labs CBC & Chem 7: 09/09/17 04:44 09/09/17 04:44 Labs: Short CBC 09/09/17 Range/Units 04:44 WBC 6.5 (4.3-11.1) K/mcL Hgb 13.7 (12.9-16.9) g/dL Hct 41.5 (37.5-50.1) % Plt Count 160 (140-400) K/mcL Neutrophils # 5.0 (1.6-8.9) K/mcL BMP 09/09/17 04:44 Sodium 135 L Potassium 4.0 Chloride 102 Carbon Dioxide 21 L BUN 15 Creatinine 0.75 Glucose 193 H Calcium 9.3 - ABG Interpretation ABG results: ABG ABG pH 7.43 pH Units (7.32-7.45) 09/08/17 19:28 ABG pCO2 37 mmHg (35-45) 09/08/17 19:28 ABG pO2 87 mmHg (85-104) 09/08/17 19:28 ABG O2 Saturation 97 % (95-98) 09/08/17 19:28 PT/INR, D-dimer PT 21.1 Seconds (9.4-12.1) H 09/09/17 09:38 Consult Discharge Plan - Plan Referrals: Fartun Quinones, VETERINARY LABORATORY TECHNICIAN [Primary Care Provider] -
[2017-09-09] MEDS: Insulin LISPRO 300 UNITS/3 ML VIAL SQ SCH (16:52)
[2017-09-09] MEDS: Warfarin perPT PO SCH (17:48)
[2017-09-09] MEDS ORDERED: *HR* Warfarin 10 MG TABLET PO ONE (18:00)
[2017-09-09] MEDS: Gabapentin 300 MG CAPSULE PO SCH (22:05)
[2017-09-10] MEDS: Ipratropium/Albuterol Neb 3 ML IH SCH ×6 (00:51→20:06)
[2017-09-10] MEDS: *HR* LORazepam 0.5 MG TABLET PO PRN (05:54)
[2017-09-10 06:26] LABS: Basophils % 0.1 %; Hematocrit 41.2 % (37.5-50.1); Hemoglobin 13.5 g/dL (12.9-16.9); Immature Granulocytes % 0.6 % (0-4); Lymphocytes # 1.8 K/mcL (0.6-4.6); Lymphocytes % 16.2 %; Mean Corpuscular HGB Conc 32.8 g/dL (31.6-35.5); Mean Corpuscular Hemoglobin 29.2 pg (28.0-33.3); Mean Platelet Volume 11.2 fL (9.4-12.4); Monocytes # 1.7 K/mcL (0.0-1.3); Monocytes % 14.8 %; Neutrophils # 7.7 K/mcL (1.6-8.9); Platelet Count 162 K/mcL (140-400); Red Blood Count 4.63 M/mcL (4.19-5.50); Red Cell Distribution Width 16.1 % (11.5-14.5); Segmented Neutrophils % 68.3 %
[2017-09-10 06:32] LABS: INR 1.7; Prothrombin Time 18.9 Seconds (9.4-12.1)
[2017-09-10 06:48] LABS: BUN/Creatinine Ratio 26 (6-26); Blood Urea Nitrogen 22 mg/dL (8-23); Carbon Dioxide 24 mEq/L (23-29); Chloride 107 mEq/L (98-107); Glucose 131 mg/dL (70-105); Osmolality,Calculated 297 (280-300); Potassium 3.8 mEq/L (3.5-5.1); Sodium 141 mEq/L (136-145); eGFR For African Americans > 60 (> 60); eGFR For Non-African Americans > 60 (> 60)
[2017-09-10] MEDS: Budesonide/Formoterol 160/4.5 MDI IH SCH ×2 (08:04→20:06)
[2017-09-10] MEDS: Insulin LISPRO 300 UNITS/3 ML VIAL SQ SCH ×5 (08:24→20:47)
[2017-09-10] MEDS ORDERED: Aminoglycoside Consult 1 EACH MC ONE (08:27)
[2017-09-10] MEDS: predniSONE 20 MG TABLET PO SCH (08:40)
[2017-09-10] MEDS: FLUoxetine 20 MG CAPSULE PO SCH (08:40)
[2017-09-10] MEDS: Furosemide 40 MG TABLET PO SCH ×2 (08:40→17:12)
[2017-09-10] MEDS: hydrOXYzine pamoate 25 MG CAPSULE PO PRN ×2 (08:40→21:07)
[2017-09-10] MEDS: Aspirin Enteric Coated 81 MG Tablet PO SCH (08:41)
[2017-09-10] MEDS ORDERED: Cefepime HCl 2,000 MG in Water for inj. (sterile) 20 ML 20 ML IVP SCH (12:00)
--- NOTE | 2017-09-10 15:32 | Internal Med Progress Note ---
Date of Encounter: 09/10/17 Time of Encounter: 15:30 - Assessment and plan (1) Acute exacerbation of chronic obstructive airways disease Current Visit: Yes Status: Acute Assessment and plan: Continue bronchodilators and steroids. Continue Levaquin. Continue O2 supplementation. social worker consulted for discharge planning. Described to patient his options for recuperation including possible placement to skilled rehabilitation. Patient is very hesitant to do this but has been advised that this was in his best interest. Will consider after discussing with family. Moderate risk for complications. (2) HCAP (healthcare-associated pneumonia) Current Visit: Yes Status: Acute Assessment and plan: Cultures are negative. We will de-escalate antibiotics. Stop cefepime and vancomycin. Continue Levaquin (3) Acute and chronic respiratory failure Current Visit: Yes Status: Acute Qualifiers: Respiratory failure complication: hypoxia Qualified Code(s): J96.21 - Acute and chronic respiratory failure with hypoxia (4) Morbid obesity with BMI of 60.0-69.9, adult Current Visit: No Status: Chronic (5) BECK (obstructive sleep apnea) Current Visit: No Status: Chronic (6) Diabetes mellitus Current Visit: Yes Status: Chronic Assessment and plan: Blood sugars are better controlled. Continue current insulin regimen Qualifiers: Diabetes mellitus type: type 2 Diabetes mellitus care home insulin use: with care home use Diabetes mellitus complication status: with unspecified complications Qualified Code(s): E11.8 - Type 2 diabetes mellitus with unspecified complications; Z79.4 - [facility] (current) use of insulin; Z79.4 - [facility] (current) use of insulin; Z79.4 - [facility] (current) use of insulin; Z79.4 - [facility] (current) use of insulin (7) DVT prophylaxis Current Visit: No Status: Acute Assessment and plan: With subcutaneous heparin - Time Spent With Patient Total time spent is greater than 50% in coordination of care (as documented) at patient's floor/unit and/or counseling patient: - Subjective Interval history: Patient seen earlier today. Continues to have significant dyspnea with minimal exertion. No chest pain or palpitations. Does have wheezing. Complains of discomfort while lying in bed. No fever or chills reported overnight. - Constitutional Vitals: Temp Pulse Resp BP Pulse Ox 98 F 84 20 131/70 95 09/10/17 15:10 09/10/17 15:10 09/10/17 15:10 09/10/17 15:10 09/10/17 15:10 General appearance: Present: A&O X 3, morbidly obese, no acute distress, answers questions appropriately - Neck Neck exam general surgery: Present: supple, trachea midline. Absent: lymphadenopathy - Respiratory Respiratory exam: Present: decreased breath sounds (Diminished air entry bilaterally), prolonged expiratory phase, wheezes. Absent: accessory muscle use , rales, rhonchi - Cardiovascular Cardiovascular exam: Present: RRR, +S1, +S2. Absent: diastolic murmur, gallop, rubs, systolic murmur - GI/Abdominal GI/Abdominal exam: Present: normal bowel sounds, soft, no peritoneal signs. Absent: distended, tenderness - Extremities Exam Extremities exam: Present: warm, radial pulses palpable and symmetrical. Absent : calf tenderness, cyanotic, pedal edema - Neurological Exam Neurological exam: Present: alert, oriented X3, no focal deficits. Absent: facial droop, speech deficit Internal Medicine: Result - Labs CBC & Chem 7: 09/10/17 05:44 09/10/17 05:44 Labs: Short CBC 09/10/17 Range/Units 05:44 WBC 11.3 H D (4.3-11.1) K/mcL Hgb 13.5 (12.9-16.9) g/dL Hct 41.2 (37.5-50.1) % Plt Count 162 (140-400) K/mcL Neutrophils # 7.7 (1.6-8.9) K/mcL BMP 09/10/17 05:44 Sodium 141 Potassium 3.8 Chloride 107 Carbon Dioxide 24 BUN 22 Creatinine 0.86 Glucose 131 H Calcium 9.0 - ABG Interpretation ABG results: ABG ABG pH 7.43 pH Units (7.32-7.45) 09/08/17 19:28 ABG pCO2 37 mmHg (35-45) 09/08/17 19:28 ABG pO2 87 mmHg (85-104) 09/08/17 19:28 ABG O2 Saturation 97 % (95-98) 09/08/17 19:28 PT/INR, D-dimer PT 18.9 Seconds (9.4-12.1) H 09/10/17 05:44 Consult Discharge Plan - Plan Referrals: Fartun Quinones, BEER STILL RUNNER COMPOUNDER [Primary Care Provider] -
[2017-09-10] MEDS: Levofloxacin 750 MG/150 ML 750 MG/150 ML BAG IVPB SCH ×2 (15:38→21:56)
[2017-09-10] MEDS: Warfarin perPT PO SCH (17:07)
[2017-09-10] MEDS: *HR* OxyCODONE/APAP 7.5/325 TABLET PO PRN (17:22)
[2017-09-10] MEDS ORDERED: *HR* Warfarin 3 MG TABLET PO ONE (18:00)
[2017-09-10] MEDS: traZODone 50 MG TABLET PO SCH (20:59)
[2017-09-10] MEDS: Gabapentin 300 MG CAPSULE PO SCH (21:00)
[2017-09-10] MEDS: Cefepime HCl 2,000 MG in Water for inj. (sterile) 20 ML 20 ML IVP SCH (21:57)
[2017-09-11] MEDS: Ipratropium/Albuterol Neb 3 ML IH SCH ×7 (00:49→19:45)
[2017-09-11] MEDS: *HR* OxyCODONE/APAP 7.5/325 TABLET PO PRN ×2 (04:05→17:40)
[2017-09-11 04:36] LABS: INR 2.2; Prothrombin Time 23.7 Seconds (9.4-12.1)
[2017-09-11] MEDS: Budesonide/Formoterol 160/4.5 MDI IH SCH ×2 (07:45→19:46)
[2017-09-11] MEDS: Insulin LISPRO 300 UNITS/3 ML VIAL SQ SCH ×4 (08:11→21:23)
[2017-09-11] MEDS: FLUoxetine 20 MG CAPSULE PO SCH (08:15)
[2017-09-11] MEDS: Furosemide 40 MG TABLET PO SCH ×2 (08:16→17:31)
[2017-09-11] MEDS: Aspirin Enteric Coated 81 MG Tablet PO SCH (08:16)
[2017-09-11] MEDS: predniSONE 20 MG TABLET PO SCH (08:16)
[2017-09-11] MEDS: Levofloxacin 750 MG/150 ML 750 MG/150 ML BAG IVPB SCH (08:17)
[2017-09-11] MEDS: hydrOXYzine pamoate 25 MG CAPSULE PO PRN (11:11)
--- NOTE | 2017-09-11 15:08 | Internal Med Progress Note ---
Date of Encounter: 09/11/17 Time of Encounter: 10:20 - Assessment and plan (1) Acute exacerbation of chronic obstructive airways disease Current Visit: Yes Status: Acute Assessment and plan: Continue current treatment with steroids, bronchodilators and O2 supplementation. Recommended pulmonary rehabilitation but patient does not want to go to [facility] as well as the closest available facility for him with inpatient rehabilitation. We will need to continue follow-up with pulmonology as outpatient when discharged from Hospital. Continue O2 supplementation. Awaiting placement to skilled rehabilitation per recommendations from physical therapy. (2) HCAP (healthcare-associated pneumonia) Current Visit: Yes Status: Acute Assessment and plan: No organism identified. Continue levofloxacin. (3) Acute and chronic respiratory failure Current Visit: Yes Status: Acute Assessment and plan: Stable. Currently on 3 L nasal cannula. Qualifiers: Respiratory failure complication: hypoxia Qualified Code(s): J96.21 - Acute and chronic respiratory failure with hypoxia (4) Morbid obesity with BMI of 60.0-69.9, adult Current Visit: No Status: Chronic (5) BECK (obstructive sleep apnea) Current Visit: No Status: Chronic Assessment and plan: CPAP while lying down. (6) Diabetes mellitus Current Visit: Yes Status: Chronic Assessment and plan: Blood sugars are well controlled at this time. Continue current insulin regimen Qualifiers: Diabetes mellitus type: type 2 Diabetes mellitus meterman insulin use: with meterman use Diabetes mellitus complication status: with unspecified complications Qualified Code(s): E11.8 - Type 2 diabetes mellitus with unspecified complications; Z79.4 - termite treater (current) use of insulin; Z79.4 - detention (current) use of insulin; Z79.4 - detention (current) use of insulin; Z79.4 - termite treater (current) use of insulin (7) DVT prophylaxis Current Visit: No Status: Acute Assessment and plan: n Coumadin. INR is therapeutic (8) Bilateral lower extremity edema Current Visit: Yes Status: Chronic Assessment and plan: Chronic. Continue Lasix. - Time Spent With Patient Total time spent is greater than 50% in coordination of care (as documented) at patient's floor/unit and/or counseling patient: - Subjective Interval history: Patient was upset this morning as bed alarm was put on it keeps beeping making him very anxious about it. He did work with physical therapy earlier today. Continues to have shortness of breath with minimal exertion. No chest pain. No palpitations. - Constitutional Vitals: Temp Pulse Resp BP Pulse Ox 97.8 F 98 20 143/86 95 09/11/17 14:48 09/11/17 14:48 09/11/17 14:48 09/11/17 14:48 09/11/17 14:48 General appearance: Present: cooperative, mild distress, A&O X 3, morbidly obese , answers questions appropriately - Neck Neck exam general surgery: Present: supple, trachea midline. Absent: lymphadenopathy - Respiratory Respiratory exam: Present: prolonged expiratory phase, wheezes. Absent: accessory muscle use, rales, rhonchi - Cardiovascular Cardiovascular exam: Present: RRR, +S1, +S2. Absent: diastolic murmur, gallop, rubs, systolic murmur - GI/Abdominal GI/Abdominal exam: Present: normal bowel sounds, soft, no peritoneal signs. Absent: distended, tenderness - Extremities Exam Extremities exam: Present: pedal edema (Chronic lymphedema bilateral), warm, radial pulses palpable and symmetrical. Absent: calf tenderness, cyanotic - Neurological Exam Neurological exam: Present: CN II-XII intact, oriented X3, no focal deficits, strengths equal and symetr throughout. Absent: facial droop, speech deficit Internal Medicine: Result - Labs CBC & Chem 7: 09/10/17 05:44 09/10/17 05:44 - ABG Interpretation ABG results: ABG ABG pH 7.43 pH Units (7.32-7.45) 09/08/17 19:28 ABG pCO2 37 mmHg (35-45) 09/08/17 19:28 ABG pO2 87 mmHg (85-104) 09/08/17 19:28 ABG O2 Saturation 97 % (95-98) 09/08/17 19:28 PT/INR, D-dimer PT 23.7 Seconds (9.4-12.1) H 09/11/17 04:00 Consult Discharge Plan - Plan Referrals: Fartun Quinones, FIRST GRADE TEACHER [Primary Care Provider] -
[2017-09-11] MEDS ORDERED: *HR* Warfarin 10 MG TABLET PO ONE (18:00)
[2017-09-11] MEDS: Warfarin perPT PO SCH (19:42)
[2017-09-11] MEDS: traZODone 50 MG TABLET PO SCH (21:23)
[2017-09-11] MEDS: Gabapentin 300 MG CAPSULE PO SCH (21:23)
[2017-09-11] MEDS: *HR* LORazepam 0.5 MG TABLET PO PRN (21:23)
[2017-09-12] MEDS: Ipratropium/Albuterol Neb 3 ML IH SCH ×7 (05:21→23:29)
[2017-09-12 05:40] LABS: INR 2.7; Prothrombin Time 29.7 Seconds (9.4-12.1)
[2017-09-12] MEDS: Budesonide/Formoterol 160/4.5 MDI IH SCH ×2 (08:03→20:11)
[2017-09-12] MEDS: Furosemide 40 MG TABLET PO SCH ×2 (10:33→18:56)
[2017-09-12] MEDS: FLUoxetine 20 MG CAPSULE PO SCH (10:33)
[2017-09-12] MEDS: Aspirin Enteric Coated 81 MG Tablet PO SCH (10:33)
[2017-09-12] MEDS: hydrOXYzine pamoate 25 MG CAPSULE PO PRN ×2 (10:33→15:01)
[2017-09-12] MEDS: predniSONE 20 MG TABLET PO SCH (10:33)
[2017-09-12] MEDS: Levofloxacin 750 MG/150 ML 750 MG/150 ML BAG IVPB SCH (10:34)
[2017-09-12] MEDS: Insulin LISPRO 300 UNITS/3 ML VIAL SQ SCH ×4 (10:34→21:10)
--- NOTE | 2017-09-12 16:18 | Internal Med Progress Note ---
Date of Encounter: 09/12/17 Time of Encounter: 16:17 - Assessment and plan (1) Acute exacerbation of chronic obstructive airways disease Current Visit: Yes Status: Acute Assessment and plan: Stable clinically. Continue prednisone and bronchodilators. Does have poor lung capacity. Recommended pulmonary rehabilitation and social sciences instructor attempted to get patient into rehabilitation but unable to arrange so far. As such his next best option would be to go to skilled rehabilitation for physical therapy. Arrangements are being made for this. Patient understands his situation. Although he does not wish to go to rehabilitation he understands that this would be his best option to recover. Will continue O2 supplementation. Continue physical therapy while in the hospital. (2) HCAP (healthcare-associated pneumonia) Current Visit: Yes Status: Acute Assessment and plan: Continue treatment with levofloxacin. (3) Acute and chronic respiratory failure Current Visit: Yes Status: Acute Assessment and plan: Stable. On 3.5 L O2 supplementation currently. Patient does need to use CPAP or BiPAP while lying down. Follow up outpatient for sleep study. Qualifiers: Respiratory failure complication: hypoxia Qualified Code(s): J96.21 - Acute and chronic respiratory failure with hypoxia (4) Morbid obesity with BMI of 60.0-69.9, adult Current Visit: No Status: Chronic (5) BECK (obstructive sleep apnea) Current Visit: No Status: Chronic Assessment and plan: Use BiPAP while lying down. (6) Diabetes mellitus Current Visit: Yes Status: Chronic Assessment and plan: Blood sugars are well controlled at this time. Continue current insulin regimen. Qualifiers: Diabetes mellitus type: type 2 Diabetes mellitus detention insulin use: with detention use Diabetes mellitus complication status: with unspecified complications Qualified Code(s): E11.8 - Type 2 diabetes mellitus with unspecified complications; Z79.4 - printing shop supervisor (current) use of insulin; Z79.4 - printing shop supervisor (current) use of insulin; Z79.4 - printing shop supervisor (current) use of insulin; Z79.4 - correction (current) use of insulin (7) Bilateral lower extremity edema Current Visit: Yes Status: Chronic Assessment and plan: Continue Lasix. (8) DVT prophylaxis Current Visit: No Status: Acute Assessment and plan: On Coumadin - Time Spent With Patient Total time spent is greater than 50% in coordination of care (as documented) at patient's floor/unit and/or counseling patient: - Subjective Interval history: Patient is concerned that he is not getting much better and remains dyspneic with minimal exertion. Denies any chest pain. Tolerated BiPAP last night for a brief period. On 3.5 L O2 supplementation currently. - Constitutional Vitals: Temp Pulse Resp BP Pulse Ox 99.0 F 101 16 164/94 92 09/12/17 14:58 09/12/17 14:58 09/12/17 14:58 09/12/17 14:58 09/12/17 14:58 General appearance: Present: cooperative, mild distress, A&O X 3, morbidly obese , answers questions appropriately - Neck Neck exam general surgery: Present: supple, trachea midline. Absent: lymphadenopathy - Respiratory Respiratory exam: Present: decreased breath sounds (Diminished air entry bilaterally), prolonged expiratory phase, wheezes. Absent: accessory muscle use , rales, rhonchi - Cardiovascular Cardiovascular exam: Present: RRR, +S1, +S2. Absent: diastolic murmur, gallop, rubs, systolic murmur - GI/Abdominal GI/Abdominal exam: Present: normal bowel sounds, soft, no peritoneal signs. Absent: distended, tenderness - Extremities Exam Extremities exam: Present: pedal edema, warm, radial pulses palpable and symmetrical. Absent: calf tenderness, cyanotic Internal Medicine: Result - Labs CBC & Chem 7: 09/10/17 05:44 09/10/17 05:44 - ABG Interpretation ABG results: ABG ABG pH 7.43 pH Units (7.32-7.45) 09/08/17 19:28 ABG pCO2 37 mmHg (35-45) 09/08/17 19:28 ABG pO2 87 mmHg (85-104) 09/08/17 19:28 ABG O2 Saturation 97 % (95-98) 09/08/17 19:28 PT/INR, D-dimer PT 29.7 Seconds (9.4-12.1) H 09/12/17 04:36 Consult Discharge Plan - Plan Referrals: Fartun Quinones, HEATER OPERATOR HELPER [Primary Care Provider] -
[2017-09-12] MEDS ORDERED: *HR* Warfarin 4 MG TABLET PO ONE (18:00)
[2017-09-12] MEDS: Warfarin perPT PO SCH (21:07)
[2017-09-12] MEDS: traZODone 50 MG TABLET PO SCH (21:08)
[2017-09-12] MEDS: Gabapentin 300 MG CAPSULE PO SCH (21:09)
[2017-09-12] MEDS: *HR* LORazepam 0.5 MG TABLET PO PRN (21:09)
[2017-09-13] MEDS: Ipratropium/Albuterol Neb 3 ML IH SCH ×4 (03:52→15:47)
[2017-09-13 04:57] LABS: Basophils % 0.2 %; Eosinophils # 0.1 K/mcL (0.0-0.6); Eosinophils % 0.8 %; Hematocrit 37.9 % (37.5-50.1); Hemoglobin 12.4 g/dL (12.9-16.9); Immature Granulocytes % 0.5 % (0-4); Lymphocytes # 2.2 K/mcL (0.6-4.6); Lymphocytes % 34.3 %; Mean Corpuscular HGB Conc 32.7 g/dL (31.6-35.5); Mean Corpuscular Hemoglobin 28.8 pg (28.0-33.3); Mean Corpuscular Volume 87.9 fL (83.0-100.0); Mean Platelet Volume 10.7 fL (9.4-12.4); Monocytes # 0.9 K/mcL (0.0-1.3); Monocytes % 13.9 %; Neutrophils # 3.2 K/mcL (1.6-8.9); Platelet Count 129 K/mcL (140-400); Red Blood Count 4.31 M/mcL (4.19-5.50); Red Cell Distribution Width 15.8 % (11.5-14.5); Segmented Neutrophils % 50.3 %
[2017-09-13 05:08] LABS: INR 2.4; Prothrombin Time 26.4 Seconds (9.4-12.1)
[2017-09-13 05:14] LABS: BUN/Creatinine Ratio 28 (6-26); Blood Urea Nitrogen 21 mg/dL (8-23); Calcium 8.5 mg/dL (8.6-10.3); Carbon Dioxide 32 mEq/L (23-29); Chloride 100 mEq/L (98-107); Glucose 124 mg/dL (70-105); Osmolality,Calculated 286 (280-300); Potassium 3.6 mEq/L (3.5-5.1); Sodium 136 mEq/L (136-145); eGFR For African Americans > 60 (> 60); eGFR For Non-African Americans > 60 (> 60)
[2017-09-13 05:29] LABS: Platelet Estimate Normal (Normal); Reactive Lymphocytes Present (Not Present)
[2017-09-13] MEDS: Insulin LISPRO 300 UNITS/3 ML VIAL SQ SCH ×2 (07:50→11:53)
[2017-09-13] MEDS: Aspirin Enteric Coated 81 MG Tablet PO SCH (07:52)
[2017-09-13] MEDS: predniSONE 20 MG TABLET PO SCH (07:52)
[2017-09-13] MEDS: FLUoxetine 20 MG CAPSULE PO SCH (07:52)
[2017-09-13] MEDS: Furosemide 40 MG TABLET PO SCH (07:52)
[2017-09-13] MEDS: Budesonide/Formoterol 160/4.5 MDI IH SCH (08:02)
[2017-09-13] MEDS: *HR* OxyCODONE/APAP 7.5/325 TABLET PO PRN (08:03)
[2017-09-13] MEDS ORDERED: levoFLOXacin 750 MG TABLET PO SCH (09:00)
--- NOTE | 2017-09-13 10:02 | Discharge Summary ---
- NOTES TO OUTPATIENT PROVIDER Notes to Outpatient Provider: Patient admitted with COPD exacerbation and pneumonia. Treated with bronchodilators, steroids and antibiotics with slow improvement. Will be discharged to skilled rehabilitation later today. Recommend pulmonary rehabilitation after that. 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 and further management of his COPD Orders not resulted at time of discharge: Pending orders 09/14/17 04:00 PT/INR [Prothrombin Time INR] [COAG] AM 0400 Date of Encounter: 09/13/17 Time of Encounter: 09:53 - Discharge Diagnosis (1) Acute exacerbation of chronic obstructive airways disease Priority: Primary Status: Acute (2) HCAP (healthcare-associated pneumonia) Priority: Secondary Status: Acute (3) Acute and chronic respiratory failure Priority: Secondary Status: Acute Qualifiers: Respiratory failure complication: hypoxia Qualified Code(s): J96.21 - Acute and chronic respiratory failure with hypoxia (4) Morbid obesity with BMI of 60.0-69.9, adult Priority: Secondary Status: Chronic (5) BECK (obstructive sleep apnea) Priority: Secondary Status: Chronic (6) Diabetes mellitus Priority: Secondary Status: Chronic Qualifiers: Diabetes mellitus type: type 2 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 Davila is a 62 year old male Patient with history of COPD, chronic tobacco abuse, chronic hypoxic respiratory failure and sleep apnea who was admitted with COPD exacerbation and pneumonia. He had just been discharged from the hospital following an episode of COPD exacerbation. He improved for a couple of days but began to have increased shortness of breath with minimal exertion. As such she came back to the ER. He was found to have possible left lower lobe pneumonia and started on antibiotics for that. He was also treated with bronchodilators, steroids and antibiotics with slow improvement. Patient lives alone and given his severe COPD, he was evaluated by physical therapy and recommended placement to skilled rehabilitation. He would also benefit from pulmonary rehabilitation which can be arranged later. We attempted to transfer him to inpatient pulmonary rehabilitation but were unsuccessful and patient did not want to go further than [place]. At this time, he will be discharged on oral antibiotics and steroid taper. He will follow up with pulmonology for further management of his COPD. He also needs his sleep study which was scheduled to be done earlier this week but was canceled as patient ended up admitted to the hospital. This will need to be rearranged. Discharge discussed with: patient, nurse - Time Spent with Patient Total time spent providing and/or coordinating discharge services: Greater than 30 minutes (40 min) - Discharge Medications Prescriptions: Gabapentin [Neurontin] 600 mg PO HS #20 capsule levoFLOXacin [Levaquin] 750 mg PO DAILY #5 tablet LORazepam [Ativan] 0.5 mg PO DAILY PRN 10 Days #10 tablet PRN Reason: Anxiety Oxycodone HCl/Acetaminophen [Percocet 7.5-325 mg Tablet] 1 each PO Q6H PRN 5 Days #14 tablet PRN Reason: Pain Home Medications: Albuterol Sulfate [Albuterol Inhaler] 2 puff IH Q4H PRN 08/04/16 [History] Docusate Sodium [Stool Softener] 100 mg PO BID PRN 08/04/16 [History] FLUoxetine HCl [Prozac] 20 mg PO DAILY 08/04/16 [History] Metformin HCl [Glucophage] 1,000 mg PO BID 08/04/16 [History] Nitroglycerin [Nitrostat] 0.4 mg SL Q5M PRN 08/04/16 [History] Omeprazole [PriLOSEC] 20 mg PO BIDAC 08/04/16 [History] Pentoxifylline [TRENtal] 400 mg PO BID 08/04/16 [History] Potassium Chloride [K-Tab ER] 20 meq PO DAILY 08/04/16 [History] Pravastatin Sodium [Pravachol] 40 mg PO HS 08/04/16 [History] Levothyroxine Sodium [Synthroid] 275 mcg PO DAILY 12/26/16 [History] Carvedilol [Coreg] 6.25 mg PO BIDWM #60 tab 01/01/17 [Rx] Warfarin perPT [Coumadin perPT] 10 mg PO 1800 #30 tablet 01/01/17 [Rx] Budesonide/Formoterol 160/4.5 [Symbicort 160/4.5] 2 puff IH BIDR 08/28/17 [ History] Cyclobenzaprine [Flexeril] 10 mg PO TID 08/28/17 [History] Furosemide [Lasix] 80 mg PO BID 08/28/17 [History] Aspirin Enteric Coated [Aspirin EC] 81 mg PO DAILY #30 tablet. 09/04/17 [Rx] hydrOXYzine pamoate [HydrOXYzine Pamoate] 25 mg PO BID PRN #10 capsule 09/04/17 [Rx] Ipratropium Neb [Atrovent Neb] 0.5 mg IH Q8H PRN 09/08/17 [History] Gabapentin [Neurontin] 600 mg PO HS #20 capsule 09/13/17 [Rx] LORazepam [Ativan] 0.5 mg PO DAILY PRN 10 Days #10 tablet 09/13/17 [Rx] Oxycodone HCl/Acetaminophen [Percocet 7.5-325 mg Tablet] 1 each PO Q6H PRN 5 Days #14 tablet 09/13/17 [Rx] levoFLOXacin [Levaquin] 750 mg PO DAILY #5 tablet 09/13/17 [Rx] predniSONE [PredniSONE] 40 mg PO DAILY tablet 09/13/17 [Rx] traZODone [TraZODone] 50 mg PO HS #0 tablet 09/13/17 [Rx] Allergies/Adverse Reactions: 3 Allergy/AdvReac Type Severity Reaction Status Date / Time Amoxicillin [From Augmentin] Allergy Palpitation Verified 08/04/16 13:05 s clavulanic acid Allergy Palpitation Verified 08/04/16 13:05 [From Augmentin] s meperidine [From Demerol] Allergy Palpitation Verified 08/04/16 13:05 s sulfamethoxazole Allergy Rash Verified 08/04/16 13:05 [From Bactrim] trimethoprim [From Bactrim] Allergy Rash Verified 08/04/16 13:05 Date of admission: 09/08/17 19:27 Primary care physician: Fartun Quinones CNP Consults: 09/09/17 13:45 Consult to Physical Therapy [CONS] Routine Comment: Evaluate, develop and implement POC Reason for Consult: Gen weakness Does patient have active BEDREST order?: No Is patient medically & hemodynamically stable?: Yes 09/09/17 13:46 Consult to Occupational Therapy [CONS] Routine Comment: Evaluate, develop and implement POC Reason for Consult: Gen weakness Does patient have active BEDREST order?: No Is patient medically & hemodynamically stable?: Yes 09/10/17 08:12 Consult to Invasive Line Access Team [CONS] Routine Reason for Consult: Limited IV access Line Type: EPIV 09/12/17 15:24 Consult to Pulmonary Rehab [CONS] Routine Reason for Consult: Patient interested in outpatient pulmonary rehab. May be going to [facility] rehab first but would like to eventually complete pulm rehab. Time Notified: 15:25 Call Completed: Yes Discharging clinician: Quinton Hawkins Anticipated date of discharge: 09/13/17 - Constitutional Vitals: Temp Pulse Resp BP Pulse Ox 97.7 F 70 16 124/72 98 09/13/17 06:50 09/13/17 06:50 09/13/17 08:07 09/13/17 06:50 09/13/17 08:07 General appearance: Present: cooperative, mild distress, A&O X 3, morbidly obese , answers questions appropriately - Neck Neck exam general surgery: Present: supple, trachea midline. Absent: lymphadenopathy - Respiratory Respiratory exam: Present: CTAB, prolonged expiratory phase, wheezes. Absent: accessory muscle use, rales, rhonchi - Cardiovascular Cardiovascular exam: Present: RRR, +S1, +S2. Absent: diastolic murmur, gallop, rubs, systolic murmur - GI/Abdominal GI/Abdominal exam: Present: normal bowel sounds, soft, no peritoneal signs. Absent: distended, tenderness - Extremities Exam Extremities exam: Present: warm, radial pulses palpable and symmetrical. Absent : calf tenderness, cyanotic, pedal edema - Neurological Exam Neurological exam: Present: CN II-XII intact, oriented X3, no focal deficits. Absent: pronater drift, facial droop, speech deficit - Skin Skin exam: Present: dry, intact - Patient Status Disposition: Transfer SNF Condition: Fair Functional capacity at discharge: uses cane/walker Overall status at discharge: patient is progressing back to baseline - Ambulatory Orders Ambulatory Orders: Sleep Study Time Frame: 1 Month, Facility: [facility], Location: [facility] - Discharge Instructions Instructions: Chronic Obstructive Pulmonary Disease (DC), Pneumonia (DC) Follow Up With: Fartun Quinones CNP [Primary Care Provider] - (In 1-2 weeks) Stevie Tamayo MD [Partnered Physician] - (in 2-3 weeks) Forms: Inpatient Work/School Release - Diet and Activity Activity: as per physical therapy, increase activity as tolerated Diet: diabetic diet, low fat, low cholesterol, low salt diet
--- NOTE | 2017-09-13 10:07 | Physician Discharge Referral ---
ExtendedCare Referral Info Provider in Charge after Transfer: PCP Institutional Level of Care: Skilled - Diagnosis (1) Acute exacerbation of chronic obstructive airways disease Priority: Primary Status: Acute (2) HCAP (healthcare-associated pneumonia) Priority: Secondary Status: Acute (3) Acute and chronic respiratory failure Priority: Secondary Status: Acute (4) Morbid obesity with BMI of 60.0-69.9, adult Priority: Secondary Status: Chronic (5) BECK (obstructive sleep apnea) Priority: Secondary Status: Chronic (6) Diabetes mellitus Priority: Secondary Status: Chronic (7) Bilateral lower extremity edema Priority: Secondary Status: Chronic (8) DVT prophylaxis Priority: Secondary Status: Acute Prognosis: Fair Aware of Diagnosis: Patient Aware of Prognosis: Patient - Transfer Medications Prescriptions: Gabapentin [Neurontin] 600 mg PO HS #20 capsule levoFLOXacin [Levaquin] 750 mg PO DAILY #5 tablet LORazepam [Ativan] 0.5 mg PO DAILY PRN 10 Days #10 tablet PRN Reason: Anxiety Oxycodone HCl/Acetaminophen [Percocet 7.5-325 mg Tablet] 1 each PO Q6H PRN 5 Days #14 tablet PRN Reason: Pain Home Medications: Albuterol Sulfate [Albuterol Inhaler] 2 puff IH Q4H PRN 08/04/16 [History] Docusate Sodium [Stool Softener] 100 mg PO BID PRN 08/04/16 [History] FLUoxetine HCl [Prozac] 20 mg PO DAILY 08/04/16 [History] Metformin HCl [Glucophage] 1,000 mg PO BID 08/04/16 [History] Nitroglycerin [Nitrostat] 0.4 mg SL Q5M PRN 08/04/16 [History] Omeprazole [PriLOSEC] 20 mg PO BIDAC 08/04/16 [History] Pentoxifylline [TRENtal] 400 mg PO BID 08/04/16 [History] Potassium Chloride [K-Tab ER] 20 meq PO DAILY 08/04/16 [History] Pravastatin Sodium [Pravachol] 40 mg PO HS 08/04/16 [History] Levothyroxine Sodium [Synthroid] 275 mcg PO DAILY 12/26/16 [History] Carvedilol [Coreg] 6.25 mg PO BIDWM #60 tab 01/01/17 [Rx] Warfarin perPT [Coumadin perPT] 10 mg PO 1800 #30 tablet 01/01/17 [Rx] Budesonide/Formoterol 160/4.5 [Symbicort 160/4.5] 2 puff IH BIDR 08/28/17 [ History] Cyclobenzaprine [Flexeril] 10 mg PO TID 08/28/17 [History] Furosemide [Lasix] 80 mg PO BID 08/28/17 [History] Aspirin Enteric Coated [Aspirin EC] 81 mg PO DAILY #30 tablet.dr 09/04/17 [Rx] hydrOXYzine pamoate [HydrOXYzine Pamoate] 25 mg PO BID PRN #10 capsule 09/04/17 [Rx] Ipratropium Neb [Atrovent Neb] 0.5 mg IH Q8H PRN 09/08/17 [History] Gabapentin [Neurontin] 600 mg PO HS #20 capsule 09/13/17 [Rx] LORazepam [Ativan] 0.5 mg PO DAILY PRN 10 Days #10 tablet 09/13/17 [Rx] Oxycodone HCl/Acetaminophen [Percocet 7.5-325 mg Tablet] 1 each PO Q6H PRN 5 Days #14 tablet 09/13/17 [Rx] levoFLOXacin [Levaquin] 750 mg PO DAILY #5 tablet 09/13/17 [Rx] predniSONE [PredniSONE] 40 mg PO DAILY tablet 09/13/17 [Rx] traZODone [TraZODone] 50 mg PO HS #0 tablet 09/13/17 [Rx] Allergies/Adverse Reactions: 3 Allergy/AdvReac Type Severity Reaction Status Date / Time Amoxicillin [From Augmentin] Allergy Palpitation Verified 08/04/16 13:05 s clavulanic acid Allergy Palpitation Verified 08/04/16 13:05 [From Augmentin] s meperidine [From Demerol] Allergy Palpitation Verified 08/04/16 13:05 s sulfamethoxazole Allergy Rash Verified 08/04/16 13:05 [From Bactrim] trimethoprim [From Bactrim] Allergy Rash Verified 08/04/16 13:05 - Respiratory Orders Oxygen / L per min (Sats >90%), Other (use BIPAP when lying down) Smoking Cessation: Smoking cessation has been advised. For more information, call the [place] Tobacco Quit Line at 1-145-GNTT-NOW. - Advance Directives Code Status: Full Code - Mobility Orders Ambulate (per PT) - Rehabiliation Orders Rehab Potential: Fair Rehab Orders: Evaluation for Physical Therapy, Evaluation for Occupational Therapy - Diet Orders No Concentrated Sweets (diabetic), Cardiac CERTIFICATION: I certify that the transfer of the above named patient to an Extended Care Facility is necessary for the continuing treatment of the diagnosis listed. The above information is true and accurate reflection of patient's current condition. Confidential - Redisclosure prohibited without a patient's written consent.
[2017-09-13 10:25] VITALS: BP 118/75
[2017-09-13] MEDS ORDERED: *HR* Warfarin 10 MG TABLET PO ONE (18:00)
== END 2017-09-13 17:25 | DRG 190 ==
LOC: EMEROO 14:28 → 3ANU 14:28 → SUATTDRO 19:27
PROVIDERS: ADMIT Hospitalist; ATTEND Internal Medicine

== ENCOUNTER 2017-12-10 16:38 | Inpatient (IN) ==
--- NOTE | 2017-12-10 17:09 | Emergency Department Note ---
Disposition Clinical Impression: CHF (congestive heart failure) Qualifiers: Heart failure type: unspecified Heart failure chronicity: unspecified Qualified Code(s): I50.9 - Heart failure, unspecified Left shoulder pain Qualifiers: Chronicity: unspecified Qualified Code(s): M25.512 - Pain in left shoulder Disposition: Admitted As Inpatient Condition: Fair Referrals: Fartun Quinones, BANKING OFFICER [Primary Care Provider] - Forms: ED Satisfaction Letter SOB HPI - General Chief Complaint: ED Shortness of Breath/Dyspnea Stated Complaint: EVERT Time Seen by Provider: 12/10/17 16:49 Source: patient Mode of arrival: private vehicle Limitations: no limitations Nursing Notes Reviewed: Yes Vital Signs Reviewed: Yes - History of Present Illness 62-year-old male history of oxygen-dependent COPD, ischemic cardiomyopathy, diabetes, hypertension, obstructive sleep apnea who presents to the ER from his pulmonology clinic with a complaint of shortness of breath. Patient states he started getting short of breath yesterday evening. Reports he has had a dry cough during that time. States he has been unable to do his usual daily activities secondary to extreme shortness of breath. He denies any fevers or chest pain. He has had chills at night. No nausea vomiting or diarrhea. Reports some pain in his bilateral flanks which she says was there the last time that he went into renal failure. Denies any trauma. He also thought he had some swelling to his left face and chest as well as left shoulder pain which has been present for the last month. Denies any trauma to that area. No numbness tingling or paresthesias. 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 His a history of one cardiac stent. No other complaints. Pt Subjective Complaint: shortness of breath, cough Onset (ago): day(s) Context: recent illness Improves with: nothing Worsens with: exertion Known history of: COPD, congestive heart failure Associated symptoms: Reports: cough. Denies: chest pain, fever, diaphoresis, nausea/vomiting Treatment prior to arrival: none Cough present: Yes Cough Description: Involuntary Cough Frequency: Intermittent Sputum production: No Sputum Amount: None - Related Data Home oxygen amount: 2 liters Home Medications Medication Instructions Recorded Confirmed Albuterol Sulfate [Albuterol 2 puff IH Q4H PRN 08/04/16 12/10/17 Inhaler] Docusate Sodium [Stool Softener] 100 mg PO BID PRN 08/04/16 12/10/17 FLUoxetine HCl [Prozac] 20 mg PO DAILY 08/04/16 12/10/17 Metformin HCl [Glucophage] 1,000 mg PO BID 08/04/16 12/10/17 Nitroglycerin [Nitrostat] 0.4 mg SL Q5M PRN 08/04/16 12/10/17 Omeprazole [PriLOSEC] 20 mg PO BIDAC 08/04/16 12/10/17 Pentoxifylline [TRENtal] 400 mg PO BID 08/04/16 12/10/17 Potassium Chloride [K-Tab ER] 20 meq PO DAILY 08/04/16 12/10/17 Pravastatin Sodium [Pravachol] 40 mg PO HS 08/04/16 12/10/17 Budesonide/Formoterol 160/4.5 2 puff IH BIDR 08/28/17 12/10/17 [Symbicort 160/4.5] Cyclobenzaprine [Flexeril] 10 mg PO TID 08/28/17 12/10/17 Furosemide [Lasix] 80 mg PO BID 08/28/17 12/10/17 Ipratropium Neb [Atrovent Neb] 0.5 mg IH Q8H PRN 09/08/17 12/10/17 Metoprolol Tartrate [Metoprolol 50 mg PO BID 12/10/17 12/10/17 Tartrate] Previous Rx's Medication Instructions Recorded Carvedilol [Coreg] 6.25 mg PO BIDWM #60 tab 01/01/17 Warfarin perPT [Coumadin perPT] 10 mg PO 1800 #30 tablet 01/01/17 hydrOXYzine pamoate [HydrOXYzine 25 mg PO BID PRN #10 capsule 09/04/17 Pamoate] Gabapentin [Neurontin] 600 mg PO HS #20 capsule 09/13/17 LORazepam [Ativan] 0.5 mg PO DAILY PRN 10 Days #10 09/13/17 tablet Oxycodone HCl/Acetaminophen 1 each PO Q6H PRN 5 Days #14 tablet 09/13/17 [Percocet 7.5-325 mg Tablet] levoFLOXacin [Levaquin] 750 mg PO DAILY #5 tablet 05/19/18 predniSONE [PredniSONE] 40 mg PO DAILY tablet 09/13/17 traZODone [TraZODone] 50 mg PO HS #0 tablet 09/13/17 Allergies Allergy/AdvReac Type Severity Reaction Status Date / Time Amoxicillin [From Augmentin] Allergy Palpitation Verified 12/10/17 19:13 s clavulanic acid Allergy Palpitation Verified 12/10/17 19:13 [From Augmentin] s meperidine [From Demerol] Allergy Palpitation Verified 12/10/17 19:13 s sulfamethoxazole Allergy Rash Verified 12/10/17 19:13 [From Bactrim] trimethoprim [From Bactrim] Allergy Rash Verified 12/10/17 19:13 All systems ED: reviewed and negative except as stated. Constitutional: Denies: fever Cardiovascular: Denies: chest pain Respiratory: Reports: cough, dyspnea. Denies: sputum production Gastrointestinal: Denies: abdominal pain, nausea, vomiting Musculoskeletal: Reports: back pain, other (Left shoulder pain) Past Medical History - Past Medical History Attestation: Yes The following information was validated with the patient. Source: patient Medical history: Reports: asthma, atrial fibrillation, CHF, COPD, coronary artery disease, diabetes, hyperlipidemia, hypertension, myocardial infarction, peripheral artery disease, thyroid disease, other Surgical history: Reports: angioplasty/stent, orthopedic, other Psychiatric history: Reports: anxiety - Social History Smoking Status: Current some day smoker Smokeless Tobacco Status: No Alcohol use: Reports: none Drug use: Reports: none Physical Exam - General Limitations: no limitations General appearance: alert, in no apparent distress - Head Head exam: atraumatic, normocephalic - Eye Eye exam: Present: normal appearance - ENT ENT exam: normal exam - Neck Neck exam: Present: normal inspection - Chest Chest inspection: Present: normal inspection, symmetric chest wall rise, other ( Tenderness to the left shoulder) - Respiratory Respiratory exam: Present: other (Diminished breath sounds bilaterally with end expiratory wheezing) - Cardiovascular Cardiovascular exam: Present: regular rate, normal rhythm, normal heart sounds - Abdominal Exam Abdominal exam: Present: soft, Non-Tender. Absent: tenderness, distention, rigidity - Extremities Exam Extremities exam: Present: normal inspection, full ROM - Expanded Upper Extremity Exam Shoulder exam: Present: normal inspection, full ROM Arm exam: Present: normal inspection, full ROM Elbow exam: Present: normal inspection, full ROM Forearm/Wrist exam: Present: normal inspection, full ROM Hand exam: Present: normal inspection, full ROM - Expanded Lower Extremity Exam Hip/Pelvis exam: Present: normal inspection, full ROM Upper leg exam: Present: normal inspection, full ROM Knee exam: Present: normal inspection, full ROM Lower leg exam: Present: normal inspection, full ROM, swelling Ankle exam: Present: normal inspection, full ROM Foot/toe exam: Present: normal inspection, full ROM Neurovascular/Tendon exam: Absent: motor deficit, sensory deficit - Back Exam Back exam: Present: paraspinal tenderness - Skin Skin exam: Present: warm, dry Course Course Narrative: Patient seen and examined. Vital signs reviewed. Plan for EKG, chest x-ray, shoulder x-ray, labs. - Reevaluation(s) Reevaluation #1: Discussed results of imaging labs with the patient. Agreeable with plan. Dose of IV Lasix in. Vital Signs Temperature 98.1 F 12/10/17 16:46 Pulse Rate 94 12/10/17 16:46 Respiratory Rate 18 12/10/17 16:46 Blood Pressure 118/79 12/10/17 16:46 O2 Sat by Pulse Oximetry 95 12/10/17 16:46 Temperature 98.1 F 12/10/17 16:52 Pulse Rate 94 12/10/17 16:52 Respiratory Rate 18 12/10/17 16:52 Blood Pressure 118/79 12/10/17 16:52 O2 Sat by Pulse Oximetry 95 12/10/17 16:52 Oxygen Delivery Oxygen Delivery Room Air Shortness of Breath/Dyspnea - [facility] Narrative Medical decision making narrative: 62-year-old male with worsening exertional dyspnea since yesterday evening. Underlying history of COPD and CHF. EKG is sinus. Chest x-ray with developing pulmonary congestion. Labs reviewed and unremarkable. Patient provided with IV Lasix here. Admitted to the hospitalist service in stable condition. - Lab Data Lab results reviewed: Yes I reviewed the patient's lab results. Result diagrams: 12/10/17 17:21 12/10/17 17:21 Lab Results 12/10/17 12/10/17 12/10/17 Range/Units 17:21 17:21 17:21 WBC 10.5 (4.3-11.1) K/mcL RBC 4.96 (4.19-5.50) M/mcL Hgb 14.7 (12.9-16.9) g/dL Hct 44.9 (37.5-50.1) % MCV 90.5 (83.0-100.0) fL MCH 29.6 (28.0-33.3) pg MCHC 32.7 (31.6-35.5) g/dL RDW 15.5 H (11.5-14.5) % Plt Count 237 (140-400) K/mcL MPV 10.9 (9.4-12.4) fL Immature Gran % 0.4 (0-4) % Seg Neutrophils % 65.0 % Lymphocytes % 25.4 % Monocytes % 8.3 % Eosinophils % 0.5 % Basophils % 0.4 % Neutrophils # 6.9 (1.6-8.9) K/mcL Lymphocytes # 2.7 (0.6-4.6) K/mcL Monocytes # 0.9 (0.0-1.3) K/mcL Eosinophils # 0.1 (0.0-0.6) K/mcL Basophils # 0.0 (0.0-0.2) K/mcL PT (9.4-12.1) Seconds INR Sodium 137 (136-145) mEq/L Potassium 3.4 L (3.5-5.1) mEq/L Chloride 102 (98-107) mEq/L Carbon Dioxide 26 (23-29) mEq/L BUN 15 (8-23) mg/dL Creatinine 1.01 (0.70-1.30) mg/dL Est GFR ( Amer) > 60 (> 60) Est GFR (Non-Af Amer) > 60 (> 60) BUN/Creatinine Ratio 15 (6-26) Glucose 154 H (70-105) mg/dL Calculated Osmolality 288 (280-300) Calcium 9.2 (8.6-10.3) mg/dL Total Bilirubin 0.3 (0.3-1.0) mg/dL Direct Bilirubin 0.0 (0.0-0.2) mg/dL Indirect Bilirubin 0.3 (0.0-1.2) mg/dL AST 12 L (13-39) Units/L ALT 8 (7-52) Units/L Alkaline Phosphatase 51 (34-104) Units/L Troponin I < 0.03 (< 0.04) ng/mL B-Natriuretic Peptide 33 (Less than 100) pg/mL Serum Total Protein 7.0 (6.4-8.9) g/dL Albumin 4.0 (3.5-5.7) g/dL Globulin 3.0 (2.4-3.5) g/dL Albumin/Globulin Ratio 1.3 (1.1-2.2) Lipase 27 (11-82) Units/L TSH 1.647 (0.340-5.600) mcIU/mL 12/10/17 Range/Units 17:21 WBC (4.3-11.1) K/mcL RBC (4.19-5.50) M/mcL Hgb (12.9-16.9) g/dL Hct (37.5-50.1) % MCV (83.0-100.0) fL MCH (28.0-33.3) pg MCHC (31.6-35.5) g/dL RDW (11.5-14.5) % Plt Count (140-400) K/mcL MPV (9.4-12.4) fL Immature Gran % (0-4) % Seg Neutrophils % % Lymphocytes % % Monocytes % % Eosinophils % % Basophils % % Neutrophils # (1.6-8.9) K/mcL Lymphocytes # (0.6-4.6) K/mcL Monocytes # (0.0-1.3) K/mcL Eosinophils # (0.0-0.6) K/mcL Basophils # (0.0-0.2) K/mcL PT 32.8 H (9.4-12.1) Seconds INR 2.9 Sodium (136-145) mEq/L Potassium (3.5-5.1) mEq/L Chloride (98-107) mEq/L Carbon Dioxide (23-29) mEq/L BUN (8-23) mg/dL Creatinine (0.70-1.30) mg/dL Est GFR ( Amer) (> 60) Est GFR (Non-Af Amer) (> 60) BUN/Creatinine Ratio (6-26) Glucose (70-105) mg/dL Calculated Osmolality (280-300) Calcium (8.6-10.3) mg/dL Total Bilirubin (0.3-1.0) mg/dL Direct Bilirubin (0.0-0.2) mg/dL Indirect Bilirubin (0.0-1.2) mg/dL AST (13-39) Units/L ALT (7-52) Units/L Alkaline Phosphatase (34-104) Units/L Troponin I (< 0.04) ng/mL B-Natriuretic Peptide (Less than 100) pg/mL Serum Total Protein (6.4-8.9) g/dL Albumin (3.5-5.7) g/dL Globulin (2.4-3.5) g/dL Albumin/Globulin Ratio (1.1-2.2) Lipase (11-82) Units/L TSH (0.340-5.600) mcIU/mL - Radiology Data Radiology results reviewed: Yes I reviewed the patient's radiology results. Chest X-Ray 12/10/17 16:49 IMPRESSION: Mild pulmonary vascular congestion without overt pulmonary edema. Stable cardiomegaly. D/ / Sincere Meredith MD / Sincere Meredith MD Interpreting Provider: Sincere Meredith MD Shoulder X-Ray 12/10/17 17:36 IMPRESSION: No acute abnormality. AC joint degenerative changes D/ / Ravin Moss MD / Ravin Moss MD Interpreting Provider: Ravin Moss MD - EKG Data EKG attestation: Yes I reviewed and interpreted this EKG. EKG results narrative: EKG demonstrates sinus rhythm rate 80 beats or minute. Left axis deviation. Incomplete right bundle branch block. Normal R-wave progression. No gross ST elevations or depressions. No acute ischemic findings. Changes from previous EKG dated 09/08/17 S.B.A.R. - S.B.A.R. Situation: Demographics, MOA Background: Presenting Complaint, Relevant PMH, Meds, & Allergies Assessment: Vital Signs, Course and respsone to treatment, Exam Concerns, Patient/Family Expectation, Pertinant Lab Results Recommendation: Barrier(s) to disposition, Recommendation based on pending studies, treatments, or consults S.B.A.R. Report Given to: Dr. Christopher Flores Repor Time: 19:38
[2017-12-10 17:48] LABS: Basophils % 0.4 %; Eosinophils # 0.1 K/mcL (0.0-0.6); Eosinophils % 0.5 %; Hematocrit 44.9 % (37.5-50.1); Hemoglobin 14.7 g/dL (12.9-16.9); Immature Granulocytes % 0.4 % (0-4); Lymphocytes # 2.7 K/mcL (0.6-4.6); Lymphocytes % 25.4 %; Mean Corpuscular HGB Conc 32.7 g/dL (31.6-35.5); Mean Corpuscular Hemoglobin 29.6 pg (28.0-33.3); Mean Corpuscular Volume 90.5 fL (83.0-100.0); Mean Platelet Volume 10.9 fL (9.4-12.4); Monocytes # 0.9 K/mcL (0.0-1.3); Monocytes % 8.3 %; Neutrophils # 6.9 K/mcL (1.6-8.9); Platelet Count 237 K/mcL (140-400); Red Blood Count 4.96 M/mcL (4.19-5.50); Red Cell Distribution Width 15.5 % (11.5-14.5)
[2017-12-10 17:59] LABS: INR 2.9; Prothrombin Time 32.8 Seconds (9.4-12.1)
[2017-12-10 18:05] LABS: Alanine Aminotransferase 8 Units/L (7-52); Albumin/Globulin Ratio 1.3 (1.1-2.2); Alkaline Phosphatase 51 Units/L (34-104); Aspartate Amino Transferase 12 Units/L (13-39); BUN/Creatinine Ratio 15 (6-26); Bilirubin,Indirect 0.3 mg/dL (0.0-1.2); Bilirubin,Total 0.3 mg/dL (0.3-1.0); Blood Urea Nitrogen 15 mg/dL (8-23); Calcium 9.2 mg/dL (8.6-10.3); Carbon Dioxide 26 mEq/L (23-29); Chloride 102 mEq/L (98-107); Glucose 154 mg/dL (70-105); Lipase 27 Units/L (11-82); Osmolality,Calculated 288 (280-300); Potassium 3.4 mEq/L (3.5-5.1); Sodium 137 mEq/L (136-145); Troponin I < 0.03 ng/mL (< 0.04); eGFR For Non-African Americans > 60 (> 60)
[2017-12-10 18:18] LABS: Thyroid Stimulating Hormone 1.647 mcIU/mL (0.340-5.600)
[2017-12-10] MEDS ORDERED: *HR* FentaNYL (PF) 100 MCG/2 ML VIAL IVP ONE (18:19)
[2017-12-10] MEDS ORDERED: Furosemide 40 MG/4 ML VIAL IVP ONE ×2 (18:20→22:00)
--- NOTE | 2017-12-10 18:48 | Emergency Department Note ---
Disposition Clinical Impression: CHF (congestive heart failure) Disposition: Still a Patient Condition: Fair Referrals: Fartun Quinones, INDIAN NANNY [Primary Care Provider] - Forms: ED Satisfaction Letter SOB HPI - General Chief Complaint: ED Shortness of Breath/Dyspnea Stated Complaint: EVERT Time Seen by Provider: 12/10/17 16:49 Source: patient Mode of arrival: private vehicle Limitations: no limitations Nursing Notes Reviewed: Yes Vital Signs Reviewed: Yes - History of Present Illness Improves with: nothing Worsens with: exertion Associated symptoms: Reports: cough. Denies: chest pain, fever, diaphoresis, nausea/vomiting Treatment prior to arrival: none - Related Data Home oxygen amount: 2 liters Home Medications Medication Instructions Recorded Confirmed Albuterol Sulfate [Albuterol 2 puff IH Q4H PRN 08/04/16 09/08/17 Inhaler] Docusate Sodium [Stool Softener] 100 mg PO BID PRN 08/04/16 09/08/17 FLUoxetine HCl [Prozac] 20 mg PO DAILY 08/04/16 09/08/17 Metformin HCl [Glucophage] 1,000 mg PO BID 08/04/16 09/08/17 Nitroglycerin [Nitrostat] 0.4 mg SL Q5M PRN 08/04/16 09/08/17 Omeprazole [PriLOSEC] 20 mg PO BIDAC 08/04/16 09/08/17 Pentoxifylline [TRENtal] 400 mg PO BID 08/04/16 09/08/17 Potassium Chloride [K-Tab ER] 20 meq PO DAILY 08/04/16 09/08/17 Pravastatin Sodium [Pravachol] 40 mg PO HS 08/04/16 09/08/17 Levothyroxine Sodium [Synthroid] 275 mcg PO DAILY 12/26/16 09/08/17 Budesonide/Formoterol 160/4.5 2 puff IH BIDR 08/28/17 09/08/17 [Symbicort 160/4.5] Cyclobenzaprine [Flexeril] 10 mg PO TID 08/28/17 09/08/17 Furosemide [Lasix] 80 mg PO BID 08/28/17 09/08/17 Ipratropium Neb [Atrovent Neb] 0.5 mg IH Q8H PRN 05/14/18 05/14/18 Previous Rx's Medication Instructions Recorded Carvedilol [Coreg] 6.25 mg PO BIDWM #60 tab 01/01/17 Warfarin perPT [Coumadin perPT] 10 mg PO 1800 #30 tablet 01/01/17 Aspirin Enteric Coated [Aspirin EC] 81 mg PO DAILY #30 tablet. 09/04/17 hydrOXYzine pamoate [HydrOXYzine 25 mg PO BID PRN #10 capsule 09/04/17 Pamoate] Gabapentin [Neurontin] 600 mg PO HS #20 capsule 09/13/17 LORazepam [Ativan] 0.5 mg PO DAILY PRN 10 Days #10 09/13/17 tablet Oxycodone HCl/Acetaminophen 1 each PO Q6H PRN 5 Days #14 tablet 09/13/17 [Percocet 7.5-325 mg Tablet] levoFLOXacin [Levaquin] 750 mg PO DAILY #5 tablet 09/13/17 predniSONE [PredniSONE] 40 mg PO DAILY tablet 09/13/17 traZODone [TraZODone] 50 mg PO HS #0 tablet 09/13/17 Allergies Allergy/AdvReac Type Severity Reaction Status Date / Time Amoxicillin [From Augmentin] Allergy Palpitation Verified 12/10/17 16:47 s clavulanic acid Allergy Palpitation Verified 12/10/17 16:47 [From Augmentin] s meperidine [From Demerol] Allergy Palpitation Verified 12/10/17 16:47 s sulfamethoxazole Allergy Rash Verified 12/10/17 16:47 [From Bactrim] trimethoprim [From Bactrim] Allergy Rash Verified 12/10/17 16:47 Constitutional: Denies: fever Cardiovascular: Denies: chest pain Respiratory: Reports: cough, dyspnea. Denies: sputum production Gastrointestinal: Denies: abdominal pain, nausea, vomiting Musculoskeletal: Reports: back pain, other (Left shoulder pain) Past Medical History - Past Medical History Medical history: Reports: asthma, atrial fibrillation, CHF, COPD, coronary artery disease, diabetes, hyperlipidemia, hypertension, myocardial infarction, peripheral artery disease, thyroid disease, other Surgical history: Reports: angioplasty/stent, orthopedic, other Psychiatric history: Reports: anxiety - Social History Smoking Status: Current some day smoker Smokeless Tobacco Status: No Alcohol use: Reports: none Drug use: Reports: none Physical Exam - General Limitations: no limitations General appearance: alert, in no apparent distress Course Vital Signs Temperature 98.1 F 12/10/17 16:46 Pulse Rate 94 12/10/17 16:46 Respiratory Rate 18 12/10/17 16:46 Blood Pressure 118/79 12/10/17 16:46 O2 Sat by Pulse Oximetry 95 12/10/17 16:46 Temperature 98.1 F 12/10/17 16:52 Pulse Rate 94 12/10/17 16:52 Respiratory Rate 18 12/10/17 16:52 Blood Pressure 118/79 12/10/17 16:52 O2 Sat by Pulse Oximetry 95 12/10/17 16:52 Oxygen Delivery Oxygen Delivery Room Air Shortness of Breath/Dyspnea - Lab Data Result diagrams: 12/10/17 17:21 12/10/17 17:21 Lab Results 12/10/17 12/10/17 12/10/17 Range/Units 17:21 17:21 17:21 WBC 10.5 (4.3-11.1) K/mcL RBC 4.96 (4.19-5.50) M/mcL Hgb 14.7 (12.9-16.9) g/dL Hct 44.9 (37.5-50.1) % MCV 90.5 (83.0-100.0) fL MCH 29.6 (28.0-33.3) pg MCHC 32.7 (31.6-35.5) g/dL RDW 15.5 H (11.5-14.5) % Plt Count 237 (140-400) K/mcL MPV 10.9 (9.4-12.4) fL Immature Gran % 0.4 (0-4) % Seg Neutrophils % 65.0 % Lymphocytes % 25.4 % Monocytes % 8.3 % Eosinophils % 0.5 % Basophils % 0.4 % Neutrophils # 6.9 (1.6-8.9) K/mcL Lymphocytes # 2.7 (0.6-4.6) K/mcL Monocytes # 0.9 (0.0-1.3) K/mcL Eosinophils # 0.1 (0.0-0.6) K/mcL Basophils # 0.0 (0.0-0.2) K/mcL PT 32.8 H (9.4-12.1) Seconds INR 2.9 Sodium 137 (136-145) mEq/L Potassium 3.4 L (3.5-5.1) mEq/L Chloride 102 (98-107) mEq/L Carbon Dioxide 26 (23-29) mEq/L BUN 15 (8-23) mg/dL Creatinine 1.01 (0.70-1.30) mg/dL Est GFR ( Amer) > 60 (> 60) Est GFR (Non-Af Amer) > 60 (> 60) BUN/Creatinine Ratio 15 (6-26) Glucose 154 H (70-105) mg/dL Calculated Osmolality 288 (280-300) Calcium 9.2 (8.6-10.3) mg/dL Total Bilirubin 0.3 (0.3-1.0) mg/dL Direct Bilirubin 0.0 (0.0-0.2) mg/dL Indirect Bilirubin 0.3 (0.0-1.2) mg/dL AST 12 L (13-39) Units/L ALT 8 (7-52) Units/L Alkaline Phosphatase 51 (34-104) Units/L Troponin I < 0.03 (< 0.04) ng/mL Serum Total Protein 7.0 (6.4-8.9) g/dL Albumin 4.0 (3.5-5.7) g/dL Globulin 3.0 (2.4-3.5) g/dL Albumin/Globulin Ratio 1.3 (1.1-2.2) Lipase 27 (11-82) Units/L TSH 1.647 (0.340-5.600) mcIU/mL Attestation Statement - Attestation Attestation: I, Elfego Melchor, examined this patient and my medical decision-making was reviewed with the WIG DRESSER/PA/Advanced Practice Nurse/Resident Physician. I agree with the documented findings, disposition and treatment plan as described except to the extent set forth below. 62-year-old male presents emergency Department with concerns of increased difficulty in breathing. Patient states he is generally able to walk around his yard without difficulty in breathing however now he is unable to ambulate more than 10-15 feet before becoming short of breath. Patient has a history of COPD and congestive heart failure. Patient states he previously took 80 mg of Lasix 3 times a day however he is now taking the same dose twice a day. Patient denied any recent changes in his dietary habits. Denies recent chest pain, nausea, vomiting, fever. Patient is mildly dyspneic with conversation however he continued to have good oxygen saturation on exam. Chest x-ray showed mild vascular congestion. Laboratory evaluation pending at this time. Patient felt comfortable with the plan for admission to the hospital for continuation of care.
[2017-12-10] MEDS ORDERED: Acetaminophen 325 MG TABLET PO ONE (19:31)
--- NOTE | 2017-12-10 19:46 | Internal Med History&Physical ---
Date of Encounter: 12/10/17 Time of Encounter: 19:45 Internal Medicine - H&P: HPI Chief complaint: SOB Admitted From: Home Plans for Post Hospital Care: Home History of present illness: Mr. Davila is a 62 year old man with oxygen-dependent COPD, ischemic cardiomyopathy s/p 1 stent, diabetes, hypertension, obstructive sleep apnea and venous thromboembolic disease on warfarin who presents to the ER from his pulmonology clinic with a complaint of shortness of breath. Patient states he started getting short of breath yesterday evening. Reports he has had a dry cough during that time. States he has been unable to do his usual daily activities secondary to extreme shortness of breath. He denies any fevers or chest pain. He has had some chills at night. No nausea, vomiting or diarrhea. He also reports increased generalized swelling, orthopnea and reduced urine output in spite of continuing his diuretics. In the ER he was hemodynamically stable and received 1 dose of 40mg furosemide as his chest x-ray was depictive of pulmonary vascular congestion. On my assessment he is saturating >95% on room sit, sitting out of bed to chair. He denies productive cough and pleuritic chest pain, saying that he has been dealing with this COPD for over 12 years and he feels he is declining. Old records were reviewed including echo and nuclear stress test done August 2017. Past Med Surg Social Fam HX - Past Medical History Medical history: asthma, atrial fibrillation, CHF, COPD, coronary artery disease , diabetes, hyperlipidemia, hypertension, myocardial infarction, peripheral artery disease, thyroid disease, other Additional medical history: A-FIB Psychiatric history: anxiety - Past Surgical History Surgical History: angioplasty/stent, orthopedic, other - Social History Smoking Status: Current some day smoker Smokeless Tobacco Status: No Alcohol use: none Drug use: none - Family History Mother Family Member Ethnicity: Non- Living Status: Hx Family Cardiac Disorders: No Hx Family Respiratory Disorders: No Father Family Member Ethnicity: Non- Living Status: Hx Family Cardiac Disorders: No Hx Family Respiratory Disorders: No Hx Family Cancer: Yes (Pancreatic) Brother Family Member Ethnicity: Non- Living Status: Still Living Hx Family Cardiac Disorders: Yes (HD, Pacemaker) Sister Family Member Ethnicity: Non- Living Status: Still Living Internal Medicine - H&P: Meds Albuterol Sulfate [Albuterol Inhaler] 2 puff IH Q4H PRN 08/04/16 [History] Docusate Sodium [Stool Softener] 100 mg PO BID PRN 08/04/16 [History] FLUoxetine HCl [Prozac] 20 mg PO DAILY 08/04/16 [History] Metformin HCl [Glucophage] 1,000 mg PO BID 08/04/16 [History] Nitroglycerin [Nitrostat] 0.4 mg SL Q5M PRN 08/04/16 [History] Omeprazole [PriLOSEC] 20 mg PO BIDAC 08/04/16 [History] Pentoxifylline [TRENtal] 400 mg PO BID 08/04/16 [History] Potassium Chloride [K-Tab ER] 20 meq PO DAILY 08/04/16 [History] Pravastatin Sodium [Pravachol] 40 mg PO HS 08/04/16 [History] Carvedilol [Coreg] 6.25 mg PO BIDWM #60 tab 01/01/17 [Rx] Warfarin perPT [Coumadin perPT] 10 mg PO 1800 #30 tablet 01/01/17 [Rx] Budesonide/Formoterol 160/4.5 [Symbicort 160/4.5] 2 puff IH BIDR 08/28/17 [ History] Cyclobenzaprine [Flexeril] 10 mg PO TID 08/28/17 [History] Furosemide [Lasix] 80 mg PO BID 08/28/17 [History] hydrOXYzine pamoate [HydrOXYzine Pamoate] 25 mg PO BID PRN #10 capsule 09/04/17 [Rx] Ipratropium Neb [Atrovent Neb] 0.5 mg IH Q8H PRN 09/08/17 [History] Gabapentin [Neurontin] 600 mg PO HS #20 capsule 09/13/17 [Rx] LORazepam [Ativan] 0.5 mg PO DAILY PRN 10 Days #10 tablet 09/13/17 [Rx] Oxycodone HCl/Acetaminophen [Percocet 7.5-325 mg Tablet] 1 each PO Q6H PRN 5 Days #14 tablet 09/13/17 [Rx] levoFLOXacin [Levaquin] 750 mg PO DAILY #5 tablet 09/13/17 [Rx] predniSONE [PredniSONE] 40 mg PO DAILY tablet 09/13/17 [Rx] traZODone [TraZODone] 50 mg PO HS #0 tablet 09/13/17 [Rx] Metoprolol Tartrate [Metoprolol Tartrate] 50 mg PO BID 12/10/17 [History] 3 Allergy/AdvReac Type Severity Reaction Status Date / Time Amoxicillin [From Augmentin] Allergy Palpitation Verified 12/10/17 19:13 s clavulanic acid Allergy Palpitation Verified 12/10/17 19:13 [From Augmentin] s meperidine [From Demerol] Allergy Palpitation Verified 12/10/17 19:13 s sulfamethoxazole Allergy Rash Verified 12/10/17 19:13 [From Bactrim] trimethoprim [From Bactrim] Allergy Rash Verified 12/10/17 19:13 All Systems PM: A 10-system review of systems was performed and is negative for pertinent findings except as documented above in the HPI. - Constitutional Vitals: Temp Pulse Resp BP Pulse Ox 98.1 F 94 18 118/79 95 12/10/17 16:52 12/10/17 16:52 12/10/17 16:52 12/10/17 16:52 12/10/17 16:52 Exam: Vitals: Reviewed General: Obese white man sitting OOB to chair in NAD Skin: Flushed, multiple scars and excoriations on upper extremities. HEENT: Moist mucous membranes. No conjunctivae pallor. Neck: Short and thick. Chest: Diminished thoracic expansion with reduced breath sounds bilaterally. Heart: Normal S1 & S2; rhythmic. Abdomen: soft and non-tender to palpation. No peritoneal reaction. Extremities: Firm edema on both legs with hyperpigmentation of venous stasis. Neurological: Awake, alert and oriented to person, place and time. No focal deficits. Psych: Affect appropriate. Internal Med - H&P Results - Labs CBC & Chem 7: 12/10/17 17:21 12/10/17 17:21 Labs: Short CBC 12/10/17 Range/Units 17:21 WBC 10.5 (4.3-11.1) K/mcL Hgb 14.7 (12.9-16.9) g/dL Hct 44.9 (37.5-50.1) % Plt Count 237 (140-400) K/mcL Neutrophils # 6.9 (1.6-8.9) K/mcL BMP 12/10/17 17:21 Sodium 137 Potassium 3.4 L Chloride 102 Carbon Dioxide 26 BUN 15 Creatinine 1.01 Glucose 154 H Calcium 9.2 Cardiac Enzymes 12/10/17 Range/Units 17:21 Troponin I < 0.03 (< 0.04) ng/mL Liver Function 12/10/17 Range/Units 17:21 Total Bilirubin 0.3 (0.3-1.0) mg/dL Direct Bilirubin 0.0 (0.0-0.2) mg/dL AST 12 L (13-39) Units/L ALT 8 (7-52) Units/L Alkaline Phosphatase 51 (34-104) Units/L Albumin 4.0 (3.5-5.7) g/dL - Impressions ITS Impressions Chest X-Ray 12/10/17 16:49 IMPRESSION: Mild pulmonary vascular congestion without overt pulmonary edema. Stable cardiomegaly. D/ / Sincere Meredith MD / Sincere Meredith MD Interpreting Provider: Sincere Meredith MD Shoulder X-Ray 12/10/17 17:36 IMPRESSION: No acute abnormality. AC joint degenerative changes D/ / Ravin Moss MD / Ravin Moss MD Interpreting Provider: Ravin Moss MD - Assessment and plan (1) Shortness of breath Current Visit: Yes Status: Acute Assessment and plan: I am concerned that the patient has a fluid overload state state as evidenced by the pulmonary vascular congestion seen on x-ray compounded by his uncontrolled COPD. We will give a total of 80mg IV furosemide tonight and continue 40mg BID tomorrow. If there is inadequate diuresis the dose should be increased or consideration given to adding metolazone for additional effect. He will be placed on standing nebulizer therapy as well to open up his airways and given CPAP at bedtime. (2) CAD (coronary artery disease) Current Visit: Yes Status: Chronic Assessment and plan: No signs of acute ischemic disease at this time. Currently not on antiplatelet therapy as he is on anticoagulants. Continue statin therapy. Outpatient cardiology follow up. Qualifiers: Coronary Disease-Associated Artery/Lesion type: [place] artery [place] vs. transplanted heart: [place] heart Associated angina: without angina Qualified Code(s): I25.10 - Atherosclerotic heart disease of [place] coronary artery without angina pectoris (3) COPD (chronic obstructive pulmonary disease) Current Visit: Yes Status: Chronic Assessment and plan: Mild to moderate exacerbation. No indication for antibiotics at this time. Will place on standing duonebs q4hrs x 24hrs. Continue LABA/ICS when stable. Qualifiers: COPD type: unspecified COPD Qualified Code(s): J44.9 - Chronic obstructive pulmonary disease, unspecified (4) Diastolic heart failure Current Visit: Yes Status: Chronic Assessment and plan: The patient seems to be in a state of decompensation and will need diuresis and strict I's/O's. Diuretics, beta alf and ACEI ordered. Of note, the BNP is typically falsely low in patients with obesity. Qualifiers: Heart failure chronicity: acute on chronic Qualified Code(s): I50.33 - Acute on chronic diastolic (congestive) heart failure (5) BECK (obstructive sleep apnea) Current Visit: Yes Status: Chronic Assessment and plan: The patient has been off his machine for a while which has exacerbated his breathing difficulties. Will place on CPAP qHS. (6) DDD (degenerative disc disease), lumbar Current Visit: Yes Status: Chronic Assessment and plan: Left shoulder muscle and joint aches persist and is on long-term oxycodone/apap prn which will be continued. (7) Hypothyroidism Current Visit: No Status: Chronic Assessment and plan: Currently eumetabolic based on TSH of 1.5 Qualifiers: Hypothyroidism type: unspecified Qualified Code(s): E03.9 - Hypothyroidism , unspecified (8) Morbid obesity Current Visit: Yes Status: Chronic Assessment and plan: Will benefit from boom boss consultation. (9) DVT prophylaxis Current Visit: No Status: Acute Assessment and plan: He will remain on warfarin. - Time Spent With Patient Total time spent is greater than 50% in coordination of care (as documented) at patient's floor/unit and/or counseling patient: Greater than 35 minutes
[2017-12-10] MEDS ORDERED: Nitroglycerin 0.4 MG TAB.SUBL SL PRN (20:18)
[2017-12-10] MEDS ORDERED: hydrOXYzine pamoate 25 MG CAPSULE PO PRN (20:18)
[2017-12-10] MEDS ORDERED: *HR* LORazepam 0.5 MG TABLET PO PRN (20:18)
[2017-12-10] MEDS ORDERED: Dextrose Gel 15 GM/37.5 ML TUBE PO PRN ×2 (20:21)
[2017-12-10] MEDS: traZODone 50 MG TABLET PO SCH (22:30)
[2017-12-10] MEDS: *HR* OxyCODONE/APAP 7.5/325 TABLET PO PRN (22:30)
[2017-12-10] MEDS: Gabapentin 300 MG CAPSULE PO SCH (22:30)
[2017-12-10] MEDS: Ipratropium/Albuterol Neb 3 ML IH SCH (23:19)
[2017-12-11] MEDS ORDERED: Insulin LISPRO 300 UNITS/3 ML VIAL SQ SCH
[2017-12-11] MEDS: Ipratropium/Albuterol Neb 3 ML IH SCH ×6 (03:51→23:28)
[2017-12-11 05:58] LABS: INR 2.7; Prothrombin Time 30.4 Seconds (9.4-12.1)
[2017-12-11 07:19] LABS: BUN/Creatinine Ratio 15 (6-26); Blood Urea Nitrogen 14 mg/dL (8-23); Calcium 8.8 mg/dL (8.6-10.3); Carbon Dioxide 27 mEq/L (23-29); Chloride 101 mEq/L (98-107); Glucose 115 mg/dL (70-105); Osmolality,Calculated 287 (280-300); Potassium 3.5 mEq/L (3.5-5.1); Sodium 138 mEq/L (136-145); eGFR For Non-African Americans > 60 (> 60)
[2017-12-11] MEDS: Insulin LISPRO 300 UNITS/3 ML VIAL SQ SCH ×4 (07:19→22:41)
[2017-12-11] MEDS: FLUoxetine 20 MG CAPSULE PO SCH (08:12)
--- NOTE | 2017-12-11 08:18 | Electrocardiograph Report ---
[address] [place], [place] [address] Test Date: 2017-12-10 Pat Name: Clemente Davila Department: Room: 3B Gender: M Shaft Tender: : 1955 Requested By: Bola Valera Order Number: [id number] Reading MD: Naheed Schaffer Measurements Intervals [place] Rate: 94 P: 173 TX: 139 QRS: 224 QRSD: 116 T: 122 QT: 363 QTc: 454 Interpretive Statements Arm electrode reversal Sinus rhythm Nonspecific intraventricular conduction delay Abnormal T, consider ischemia, lateral leads Electronically Signed On 12-11-2017 8:16:45 EDT by Naheed Schaffer
[2017-12-11] MEDS ORDERED: Furosemide 40 MG/4 ML VIAL IVP SCH (09:00)
--- NOTE | 2017-12-11 11:12 | Internal Med Progress Note ---
Hospitalist Progress Note - Encounter Date of Encounter: 12/11/17 Time of Encounter: 11:12 - Subjective Interval History: Patient seen and examined at bedside . Denies any CP or SOB at this time . His only complaint is shoulder pain which he states is chronic . - Exam Vitals: Temp Pulse Resp BP Pulse Ox 97.9 F 73 16 130/79 96 12/11/17 06:56 12/11/17 06:56 12/11/17 07:31 12/11/17 06:56 12/11/17 08:22 Exam: Vitals: Reviewed General: Obese white man in no acute didtress Skin: Flushed, multiple scars and excoriations on upper extremities. HEENT: Moist mucous membranes. No conjunctivae pallor. Neck: Short and thick. Chest: Diminished thoracic expansion with reduced breath sounds bilaterally. Heart: Normal S1 & S2; rhythmic. Abdomen: soft and non-tender to palpation. No peritoneal reaction. Extremities: Firm edema on both legs with hyperpigmentation of venous stasis. Neurological: Awake, alert and oriented to person, place and time. No focal deficits. Psych: Affect appropriate. - Assessment and Plan (1) COPD (chronic obstructive pulmonary disease) Current Visit: Yes Status: Chronic Assessment and Plan: Mild to moderate exacerbation. No wheezing noted at this time No indication for antibiotics at this time. Will place on standing duonebs q4hrs x 24hrs. Continue LABA/ICS when stable. (2) Diastolic heart failure Current Visit: Yes Status: Chronic Assessment and Plan: Monitor I/O dialy weight - fluid restriction 1500ml Diuretics, beta alf and ACEI low salt diet (3) Shortness of breath Current Visit: Yes Status: Acute Assessment and Plan: I am concerned that the patient has a fluid overload state state as evidenced by the pulmonary vascular congestion seen on x-ray compounded by his uncontrolled COPD. We will give a total of 80mg IV furosemide tonight and continue 40mg BID tomorrow. If there is inadequate diuresis the dose should be increased or consideration given to adding metolazone for additional effect. He will be placed on standing nebulizer therapy as well to open up his airways and given CPAP at bedtime. (4) CAD (coronary artery disease) Current Visit: Yes Status: Chronic Assessment and Plan: No signs of acute ischemic disease at this time.- nitroglycerin as needed for cp Currently not on antiplatelet therapy as he is on anticoagulants. Continue statin therapy. Outpatient cardiology follow up. (5) BECK (obstructive sleep apnea) Current Visit: Yes Status: Chronic Assessment and Plan: The patient has been off his machine for a while which has exacerbated his breathing difficulties. Will place on CPAP qHS. social group worker consulted concerning CPAP (6) DDD (degenerative disc disease), lumbar Current Visit: Yes Status: Chronic Assessment and Plan: Left shoulder muscle and joint aches persist and is on long-term oxycodone/apap prn which will be continued. Has seen ortho in the past which has recommended PT and possible surgery- (7) Hypothyroidism Current Visit: No Status: Chronic Assessment and Plan: Currently eumetabolic based on TSH of 1.5 (8) Morbid obesity Current Visit: Yes Status: Chronic Assessment and Plan: Will benefit from certified nurse practitioner consultation. Encourage weight loss (9) DVT prophylaxis Current Visit: No Status: Acute Assessment and Plan: warfarin. - Time Spent with Patient Total time spent is greater than 50% in coordination of care (as documented) at patient's floor/unit and/or counseling patient: Internal Medicine: Result - Labs CBC & Chem 7: 12/10/17 17:21 12/11/17 05:25 Labs: BMP 12/11/17 05:25 Sodium 138 Potassium 3.5 Chloride 101 Carbon Dioxide 27 BUN 14 Creatinine 0.96 Glucose 115 H Calcium 8.8 - ABG Interpretation ABG results: PT/INR, D-dimer PT 30.4 Seconds (9.4-12.1) H 12/11/17 05:25 Consult Discharge Plan - Plan Referrals: Fartun Quinones, FOOD PROCESSING PLANT MANAGER [Primary Care Provider] - (1) COPD (chronic obstructive pulmonary disease) Qualifiers: COPD type: unspecified COPD Qualified Code(s): J44.9 - Chronic obstructive pulmonary disease, unspecified (2) Diastolic heart failure Qualifiers: Heart failure chronicity: acute on chronic Qualified Code(s): I50.33 - Acute on chronic diastolic (congestive) heart failure (4) CAD (coronary artery disease) Qualifiers: Coronary Disease-Associated Artery/Lesion type: [place] artery [place] vs. transplanted heart: [place] heart Associated angina: without angina Qualified Code(s): I25.10 - Atherosclerotic heart disease of [place] coronary artery without angina pectoris (7) Hypothyroidism Qualifiers: Hypothyroidism type: unspecified Qualified Code(s): E03.9 - Hypothyroidism, unspecified
[2017-12-11] MEDS: *HR* OxyCODONE/APAP 7.5/325 TABLET PO PRN (12:37)
[2017-12-11] MEDS: Furosemide 40 MG/4 ML VIAL IVP SCH ×2 (14:03→16:44)
[2017-12-11] MEDS: Warfarin perPT PO SCH (17:14)
--- NOTE | 2017-12-11 17:28 | Electrocardiograph Report ---
[place] [address] Test Date: 2017-12-10 Pat Name: Clemente Davila Department: Room: 3B Gender: M Him Coder: : 1955 Requested By: Bola Valera Order Number: [id number] Reading MD: Naheed Schaffer Measurements Intervals [place] Rate: 90 P: 203 OR: 141 QRS: 219 QRSD: 118 T: 120 QT: 382 QTc: 468 Interpretive Statements Right and left arm electrode reversal Sinus rhythm Nonspecific intraventricular conduction delay Leftward axis Electronically Signed On 12-11-2017 17:27:29 EDT by Naheed Schaffer
[2017-12-11] MEDS ORDERED: *HR* Warfarin 10 MG TABLET PO ONE (18:00)
[2017-12-11] MEDS ORDERED: OXYCODONE Oral CONC 10 MG/0.5 ML ORAL.SYG SL ONE (21:40)
[2017-12-11] MEDS: Gabapentin 300 MG CAPSULE PO SCH (22:39)
[2017-12-11] MEDS: traZODone 50 MG TABLET PO SCH (22:39)
--- NOTE | 2017-12-11 23:44 | Event Note ---
Date of Encounter: 12/11/17 Time of Encounter: 23:06 Alerted by cardio the patient's venous Doppler which showed positive superficial partial thrombus of the left upper extremity cephalic vein at IV site. Patient is on Coumadin and received 10 mg dosing per pharmacy dosing and 18:26. Instructed nurse to remove IV and apply warm compresses to site overnight. New IV site to be started which is not in close proximity to old IV site. Continue to monitor patient closely.
[2017-12-12] MEDS: Ipratropium/Albuterol Neb 3 ML IH SCH ×6 (04:17→23:18)
[2017-12-12 05:16] LABS: Basophils # 0.1 K/mcL (0.0-0.2); Basophils % 0.6 %; Eosinophils # 0.1 K/mcL (0.0-0.6); Eosinophils % 1.3 %; Hematocrit 39.3 % (37.5-50.1); Immature Granulocytes % 0.4 % (0-4); Lymphocytes # 2.9 K/mcL (0.6-4.6); Mean Corpuscular HGB Conc 31.3 g/dL (31.6-35.5); Mean Corpuscular Hemoglobin 28.6 pg (28.0-33.3); Mean Corpuscular Volume 91.4 fL (83.0-100.0); Mean Platelet Volume 11.6 fL (9.4-12.4); Monocytes # 0.8 K/mcL (0.0-1.3); Monocytes % 9.9 %; Neutrophils # 4.6 K/mcL (1.6-8.9); Platelet Count 144 K/mcL (140-400); Red Cell Distribution Width 15.4 % (11.5-14.5); Segmented Neutrophils % 53.8 %
[2017-12-12 05:19] LABS: Hemoglobin 12.3 g/dL (12.9-16.9)
[2017-12-12 05:27] LABS: INR 2.1; Prothrombin Time 23.5 Seconds (9.4-12.1)
[2017-12-12 07:19] LABS: BUN/Creatinine Ratio 23 (6-26); Blood Urea Nitrogen 19 mg/dL (8-23); Calcium 8.9 mg/dL (8.6-10.3); Carbon Dioxide 27 mEq/L (23-29); Chloride 102 mEq/L (98-107); Glucose 117 mg/dL (70-105); Osmolality,Calculated 289 (280-300); Potassium 3.5 mEq/L (3.5-5.1); Sodium 138 mEq/L (136-145); eGFR For Non-African Americans > 60 (> 60)
[2017-12-12] MEDS: Insulin LISPRO 300 UNITS/3 ML VIAL SQ SCH ×4 (07:47→21:11)
[2017-12-12] MEDS: Furosemide 40 MG/4 ML VIAL IVP SCH ×2 (07:59→15:56)
[2017-12-12] MEDS: FLUoxetine 20 MG CAPSULE PO SCH (07:59)
--- NOTE | 2017-12-12 08:35 | Internal Med Progress Note ---
Hospitalist Progress Note - Encounter Date of Encounter: 12/12/17 Time of Encounter: 08:35 - Subjective Interval History: Patient seen and examined at bedside . Denies any CP or SOB at this time . Complains of chronic pain in L shoulder . - Exam Vitals: Temp Pulse Resp BP Pulse Ox 97.8 F 68 15 98/63 97 12/12/17 07:10 12/12/17 07:10 12/12/17 07:10 12/12/17 07:10 12/12/17 07:10 Exam: Vitals: Reviewed General: Obese white man in no acute didtress Skin: Flushed, multiple scars and excoriations on upper extremities. HEENT: Moist mucous membranes. No conjunctivae pallor. Neck: Short and thick. Chest: Diminished thoracic expansion with reduced breath sounds bilaterally. Heart: Normal S1 & S2; rhythmic. Abdomen: soft and non-tender to palpation. No peritoneal reaction. Extremities: edema on both legs with hyperpigmentation of venous stasis. Neurological: Awake, alert and oriented to person, place and time. No focal deficits. Psych: Affect appropriate. - Assessment and Plan (1) COPD (chronic obstructive pulmonary disease) Current Visit: Yes Status: Chronic Assessment and Plan: . No wheezing noted at this time No indication for antibiotics at this time. Will place on standing duonebs q4hrs x 24hrs. Continue LABA/ICS when stable. (2) Diastolic heart failure Current Visit: Yes Status: Chronic Assessment and Plan: Improving Monitor I/O dialy weight - fluid restriction 1500ml Cont Diuretics, beta alf and ACEI low salt diet (3) Shortness of breath Current Visit: Yes Status: Acute Assessment and Plan: improving We will continue with IV lasix as well as nebulizer treatments cont with O2 and CPAP at night (4) CAD (coronary artery disease) Current Visit: Yes Status: Chronic Assessment and Plan: No signs of acute ischemic disease at this time.- nitroglycerin as needed for cp Currently not on antiplatelet therapy as he is on anticoagulants. Continue statin therapy. Outpatient cardiology follow up. (5) BECK (obstructive sleep apnea) Current Visit: Yes Status: Chronic Assessment and Plan: The patient has been off his machine for a while which has exacerbated his breathing difficulties. Will place on CPAP qHS. social services aide consulted concerning CPAP (6) DDD (degenerative disc disease), lumbar Current Visit: Yes Status: Chronic Assessment and Plan: Left shoulder muscle and joint aches persist and is on long-term oxycodone/apap prn which will be continued. Has seen ortho in the past which has recommended PT and possible surgery- patient has opted for conservative measures - PT (7) Hypothyroidism Current Visit: No Status: Chronic Assessment and Plan: Currently eumetabolic based on TSH of 1.5 (8) Morbid obesity Current Visit: Yes Status: Chronic Assessment and Plan: Will benefit from clinical neuropsychologist consultation. Encourage weight loss (9) DVT prophylaxis Current Visit: No Status: Acute Assessment and Plan: warfarin. monitor INR dose per pharmacy - Time Spent with Patient Total time spent is greater than 50% in coordination of care (as documented) at patient's floor/unit and/or counseling patient: Internal Medicine: Result - Labs CBC & Chem 7: 12/12/17 04:06 12/12/17 04:06 Labs: Short CBC 12/12/17 Range/Units 04:06 WBC 8.5 (4.3-11.1) K/mcL Hgb 12.3 L D (12.9-16.9) g/dL Hct 39.3 (37.5-50.1) % Plt Count 144 (140-400) K/mcL Neutrophils # 4.6 (1.6-8.9) K/mcL BMP 12/12/17 04:06 Sodium 138 Potassium 3.5 Chloride 102 Carbon Dioxide 27 BUN 19 Creatinine 0.82 Glucose 117 H Calcium 8.9 - ABG Interpretation ABG results: PT/INR, D-dimer PT 23.5 Seconds (9.4-12.1) H 12/12/17 04:06 Consult Discharge Plan - Plan Referrals: Fartun Quinones, SPAR MACHINE OPERATOR HELPER [Primary Care Provider] - (1) COPD (chronic obstructive pulmonary disease) Qualifiers: COPD type: unspecified COPD Qualified Code(s): J44.9 - Chronic obstructive pulmonary disease, unspecified (2) Diastolic heart failure Qualifiers: Heart failure chronicity: acute on chronic Qualified Code(s): I50.33 - Acute on chronic diastolic (congestive) heart failure (4) CAD (coronary artery disease) Qualifiers: Coronary Disease-Associated Artery/Lesion type: [place] artery [place] vs. transplanted heart: [place] heart Associated angina: without angina Qualified Code(s): I25.10 - Atherosclerotic heart disease of [place] coronary artery without angina pectoris (7) Hypothyroidism Qualifiers: Hypothyroidism type: unspecified Qualified Code(s): E03.9 - Hypothyroidism, unspecified
[2017-12-12] MEDS: *HR* OxyCODONE/APAP 7.5/325 TABLET PO PRN ×2 (13:18→21:25)
[2017-12-12] MEDS: Warfarin perPT PO SCH (17:22)
[2017-12-12] MEDS ORDERED: *HR* Warfarin 10 MG TABLET PO ONE (18:00)
[2017-12-12] MEDS ORDERED: *HR* Warfarin 7.5 MG TABLET PO ONE (18:15)
[2017-12-12] MEDS: traZODone 50 MG TABLET PO SCH (21:13)
[2017-12-12] MEDS: Gabapentin 300 MG CAPSULE PO SCH (21:14)
[2017-12-13 05:57] LABS: Basophils % 0.5 %; Eosinophils # 0.1 K/mcL (0.0-0.6); Eosinophils % 1.6 %; Hematocrit 39.1 % (37.5-50.1); Hemoglobin 12.7 g/dL (12.9-16.9); Immature Granulocytes % 0.2 % (0-4); Lymphocytes # 2.8 K/mcL (0.6-4.6); Lymphocytes % 34.6 %; Mean Corpuscular HGB Conc 32.5 g/dL (31.6-35.5); Mean Corpuscular Hemoglobin 29.7 pg (28.0-33.3); Mean Corpuscular Volume 91.4 fL (83.0-100.0); Mean Platelet Volume 11.1 fL (9.4-12.4); Monocytes # 0.9 K/mcL (0.0-1.3); Monocytes % 10.7 %; Neutrophils # 4.2 K/mcL (1.6-8.9); Platelet Count 177 K/mcL (140-400); Red Blood Count 4.28 M/mcL (4.19-5.50); Segmented Neutrophils % 52.4 %
[2017-12-13 05:59] LABS: INR 2.2; Prothrombin Time 24.3 Seconds (9.4-12.1)
[2017-12-13 06:20] LABS: BUN/Creatinine Ratio 25 (6-26); Blood Urea Nitrogen 19 mg/dL (8-23); Calcium 8.8 mg/dL (8.6-10.3); Carbon Dioxide 28 mEq/L (23-29); Chloride 102 mEq/L (98-107); Glucose 117 mg/dL (70-105); Osmolality,Calculated 291 (280-300); Potassium 3.3 mEq/L (3.5-5.1); Sodium 139 mEq/L (136-145); eGFR For Non-African Americans > 60 (> 60)
[2017-12-13] MEDS: FLUoxetine 20 MG CAPSULE PO SCH (07:49)
[2017-12-13] MEDS: Insulin LISPRO 300 UNITS/3 ML VIAL SQ SCH ×4 (07:58→21:32)
[2017-12-13] MEDS: Furosemide 40 MG/4 ML VIAL IVP SCH (07:59)
[2017-12-13] MEDS ORDERED: 0.9 % Sodium Chloride 1,000 ML IVC SCH (11:45)
[2017-12-13] MEDS: *HR* OxyCODONE/APAP 7.5/325 TABLET PO PRN (11:55)
--- NOTE | 2017-12-13 12:52 | Internal Med Progress Note ---
Hospitalist Progress Note - Encounter Date of Encounter: 12/13/17 Time of Encounter: 12:50 - Subjective Interval History: Patient seen and examined at bedside . Denies any CP or SOB at this time . Complains of chronic pain in L shoulder . He did have some low BP this am we will hold lasix for now- expect him to be discharge - Exam Vitals: Temp Pulse Resp BP Pulse Ox 97.5 F L 69 16 131/79 98 12/13/17 11:48 12/13/17 11:48 12/13/17 11:48 12/13/17 11:48 12/13/17 11:48 Exam: Vitals: Reviewed General: Obese white man in no acute didtress Skin: Flushed, multiple scars and excoriations on upper extremities. HEENT: Moist mucous membranes. No conjunctivae pallor. Neck: Short and thick. Chest: Diminished thoracic expansion with reduced breath sounds bilaterally. Heart: Normal S1 & S2; rhythmic. Abdomen: soft and non-tender to palpation. No peritoneal reaction. Extremities: both legs with hyperpigmentation of venous stasis. Neurological: Awake, alert and oriented to person, place and time. No focal deficits. Psych: Affect appropriate. - Assessment and Plan (1) COPD (chronic obstructive pulmonary disease) Current Visit: Yes Status: Chronic Assessment and Plan: . No wheezing stable at this time No indication for antibiotics at this time. Will place on standing duonebs q4hrs x 24hrs. Continue LABA/ICS when stable. (2) Diastolic heart failure Current Visit: Yes Status: Chronic Assessment and Plan: Improving Monitor I/O dialy weight - fluid restriction 1500ml Cont, beta alf and ACEI low salt diet (3) Shortness of breath Current Visit: Yes Status: Acute Assessment and Plan: improving We will continue nebulizer treatments cont with O2 and CPAP at night (4) CAD (coronary artery disease) Current Visit: Yes Status: Chronic Assessment and Plan: No signs of acute ischemic disease at this time.- nitroglycerin as needed for cp Currently not on antiplatelet therapy as he is on anticoagulants. Continue statin therapy. Outpatient cardiology follow up. (5) BECK (obstructive sleep apnea) Current Visit: Yes Status: Chronic Assessment and Plan: The patient has been off his machine for a while which has exacerbated his breathing difficulties. Will place on CPAP qHS. social service director consulted concerning CPAP (6) DDD (degenerative disc disease), lumbar Current Visit: Yes Status: Chronic Assessment and Plan: Left shoulder muscle and joint aches persist and is on long-term oxycodone/apap prn which will be continued. Has seen ortho in the past which has recommended PT and possible surgery- patient has opted for conservative measures - PT (7) Hypothyroidism Current Visit: No Status: Chronic Assessment and Plan: Currently eumetabolic based on TSH of 1.5 (8) Morbid obesity Current Visit: Yes Status: Chronic Assessment and Plan: Will benefit from library director consultation. Encourage weight loss (9) DVT prophylaxis Current Visit: No Status: Acute Assessment and Plan: warfarin. monitor INR dose per pharmacy (10) Hypotension Current Visit: Yes Status: Acute Assessment and Plan: patient had some hypotension - we will hold lasix for now as well as lisinopril - monitor and resume home lasix in am- expect discharge in am - Time Spent with Patient Total time spent is greater than 50% in coordination of care (as documented) at patient's floor/unit and/or counseling patient: Internal Medicine: Result - Labs CBC & Chem 7: 12/13/17 04:51 12/13/17 04:51 Labs: Short CBC 12/13/17 Range/Units 04:51 WBC 8.1 (4.3-11.1) K/mcL Hgb 12.7 L (12.9-16.9) g/dL Hct 39.1 (37.5-50.1) % Plt Count 177 (140-400) K/mcL Neutrophils # 4.2 (1.6-8.9) K/mcL BMP 12/13/17 04:51 Sodium 139 Potassium 3.3 L Chloride 102 Carbon Dioxide 28 BUN 19 Creatinine 0.75 Glucose 117 H Calcium 8.8 - ABG Interpretation ABG results: PT/INR, D-dimer PT 24.3 Seconds (9.4-12.1) H 12/13/17 04:51 Consult Discharge Plan - Plan Referrals: Fartun Quinones, NURSE LDR [Primary Care Provider] - (1) COPD (chronic obstructive pulmonary disease) Qualifiers: COPD type: unspecified COPD Qualified Code(s): J44.9 - Chronic obstructive pulmonary disease, unspecified (2) Diastolic heart failure Qualifiers: Heart failure chronicity: acute on chronic Qualified Code(s): I50.33 - Acute on chronic diastolic (congestive) heart failure (4) CAD (coronary artery disease) Qualifiers: Coronary Disease-Associated Artery/Lesion type: [place] artery [place] vs. transplanted heart: [place] heart Associated angina: without angina Qualified Code(s): I25.10 - Atherosclerotic heart disease of [place] coronary artery without angina pectoris (7) Hypothyroidism Qualifiers: Hypothyroidism type: unspecified Qualified Code(s): E03.9 - Hypothyroidism, unspecified (10) Hypotension Qualifiers: Hypotension type: unspecified hypotension type Qualified Code(s): I95.9 - Hypotension, unspecified
[2017-12-13] MEDS ORDERED: *HR* Warfarin 10 MG TABLET PO ONE (18:00)
[2017-12-13] MEDS: Warfarin perPT PO SCH (19:34)
[2017-12-13] MEDS: Gabapentin 300 MG CAPSULE PO SCH (21:32)
[2017-12-13] MEDS: traZODone 50 MG TABLET PO SCH (21:32)
[2017-12-13] MEDS ORDERED: OXYCODONE Oral CONC 10 MG/0.5 ML ORAL.SYG SL PRN (22:18)
--- NOTE | 2017-12-14 08:31 | Discharge Summary ---
- NOTES TO OUTPATIENT PROVIDER Notes to Outpatient Provider: He was diuressed and breathing improved - awaiting CPAP as outpatient Orders not resulted at time of discharge: Pending orders 12/13/17 05:58 Sputum Culture [Culture,Sputum with Gram Stain] [RM] Routine 12/14/17 07:26 CBC [Complete Blood Count] [HEME] Routine Chem 7 [Basic Metabolic Panel] Routine Date of Encounter: 12/15/17 Time of Encounter: 10:16 - Discharge Diagnosis (1) COPD (chronic obstructive pulmonary disease) Priority: Secondary Status: Chronic Qualifiers: COPD type: unspecified COPD Qualified Code(s): J44.9 - Chronic obstructive pulmonary disease, unspecified (2) Diastolic heart failure Priority: Primary Status: Chronic Qualifiers: Heart failure chronicity: acute on chronic Qualified Code(s): I50.33 - Acute on chronic diastolic (congestive) heart failure (3) Shortness of breath Priority: Secondary Status: Acute (4) CAD (coronary artery disease) Priority: Secondary Status: Chronic Qualifiers: Coronary Disease-Associated Artery/Lesion type: [place] artery [place] vs. transplanted heart: [place] heart Associated angina: without angina Qualified Code(s): I25.10 - Atherosclerotic heart disease of [place] coronary artery without angina pectoris (5) BECK (obstructive sleep apnea) Priority: Secondary Status: Chronic (6) DDD (degenerative disc disease), lumbar Priority: Secondary Status: Chronic (7) Hypothyroidism Priority: Secondary Status: Chronic Qualifiers: Hypothyroidism type: unspecified Qualified Code(s): E03.9 - Hypothyroidism , unspecified (8) Morbid obesity Priority: Secondary Status: Chronic (9) Hypotension Priority: Secondary Status: Acute Qualifiers: Hypotension type: unspecified hypotension type Qualified Code(s): I95.9 - Hypotension, unspecified Hospital course: Mr. Davila is a 62 year old male past medical hx of COPD oxygen dependent ischemic cardiomyopathy s/p 1 stent diabetes HTN BECK and venous thromboembolic disease on warfarin. He presented to the ED from pulmonology office with complaints of increasing SOB orthopnea which had been going on for 24 hr No N/V /D he has a dry cough. He has increased swelling and decreased urine output despite diuretics He presented to the ED CXR did show some mild pulmonary vascuar congestion Lab work did show hypokalemia - echo 08/2017 with EF 65-70% no pulmonary HTN Normal left ventricular diastolic function . He was admitted and placed on fluid restriction and diuressed with IV lasix. during admission he did have swelling to his l arm he did have left cephalic thrombosis at the antecubital level- his IV was removed - he is currently on coumadin which we will continue - He has complained of l shoulder pain since admission. He has seen orthopedic on 12/04/2017 who recommended surgery versus conservative measures of PT and pain controlled, he declined surgery. He has requested pain medication throughout this visit I offered alternative pain control methods which he declined. Advised to cont home medications and follow up with PCP and orthopedics. Advised to monitor weight daily He verbalized understanding He is ready for discharge - Time Spent with Patient Total time spent providing and/or coordinating discharge services: - Discharge Medications Home Medications: Albuterol Sulfate [Albuterol Inhaler] 2 puff IH Q4H PRN 08/04/16 [History] Docusate Sodium [Stool Softener] 100 mg PO BID PRN 08/04/16 [History] FLUoxetine HCl [Prozac] 20 mg PO DAILY 08/04/16 [History] Metformin HCl [Glucophage] 1,000 mg PO BID 08/04/16 [History] Nitroglycerin [Nitrostat] 0.4 mg SL Q5M PRN 08/04/16 [History] Omeprazole [PriLOSEC] 20 mg PO BIDAC 08/04/16 [History] Pentoxifylline [TRENtal] 400 mg PO BID 08/04/16 [History] Potassium Chloride [K-Tab ER] 20 meq PO DAILY 08/04/16 [History] Pravastatin Sodium [Pravachol] 40 mg PO HS 08/04/16 [History] Carvedilol [Coreg] 6.25 mg PO BIDWM #60 tab 01/01/17 [Rx] Warfarin perPT [Coumadin perPT] 10 mg PO 1800 #30 tablet 01/01/17 [Rx] Budesonide/Formoterol 160/4.5 [Symbicort 160/4.5] 2 puff IH BIDR 08/28/17 [ History] Cyclobenzaprine [Flexeril] 10 mg PO TID 08/28/17 [History] Furosemide [Lasix] 80 mg PO BID 08/28/17 [History] hydrOXYzine pamoate [HydrOXYzine Pamoate] 25 mg PO BID PRN #10 capsule 09/04/17 [Rx] Ipratropium Neb [Atrovent Neb] 0.5 mg IH Q8H PRN 09/08/17 [History] Gabapentin [Neurontin] 600 mg PO HS #20 capsule 09/13/17 [Rx] LORazepam [Ativan] 0.5 mg PO DAILY PRN 10 Days #10 tablet 09/13/17 [Rx] Oxycodone HCl/Acetaminophen [Percocet 7.5-325 mg Tablet] 1 each PO Q6H PRN 5 Days #14 tablet 09/13/17 [Rx] predniSONE [PredniSONE] 40 mg PO DAILY tablet 09/13/17 [Rx] traZODone [TraZODone] 50 mg PO HS #0 tablet 09/13/17 [Rx] Metoprolol Tartrate 50 mg PO BID 12/10/17 [History] Levothyroxine Sodium [Levoxyl] 275 mcg PO DAILY 12/12/17 [History] Allergies/Adverse Reactions: 3 Allergy/AdvReac Type Severity Reaction Status Date / Time Amoxicillin [From Augmentin] Allergy Palpitation Verified 12/10/17 19:13 s clavulanic acid Allergy Palpitation Verified 12/10/17 19:13 [From Augmentin] s meperidine [From Demerol] Allergy Palpitation Verified 12/10/17 19:13 s sulfamethoxazole Allergy Rash Verified 12/10/17 19:13 [From Bactrim] trimethoprim [From Bactrim] Allergy Rash Verified 12/10/17 19:13 Date of admission: 12/12/17 20:28 Primary care physician: Fartun Quinones CNP Discharging clinician: Shelby Solo Anticipated date of discharge: 12/14/17 - Constitutional Exam: see above - Head Head exam: Present: atraumatic, normocephalic - Eye Eye exam: Present: PERRL, conjuntiva pink, sclera anicteric Pupils: Present: PERRL - Neck Neck exam general surgery: Present: supple, trachea midline. Absent: lymphadenopathy - Respiratory Respiratory exam: Present: CTAB. Absent: accessory muscle use, rales, rhonchi, wheezes - Cardiovascular Cardiovascular exam: Present: RRR, +S1, +S2. Absent: diastolic murmur, gallop, rubs, systolic murmur - GI/Abdominal GI/Abdominal exam: Present: normal bowel sounds, soft, no peritoneal signs. Absent: distended, tenderness - Extremities Exam Extremities exam: Present: warm, radial pulses palpable and symmetrical. Absent : calf tenderness, cyanotic, pedal edema - Neurological Exam Neurological exam: Present: CN II-XII intact, oriented X3, no focal deficits. Absent: pronater drift, facial droop, speech deficit - Skin Skin exam: Present: dry, intact - Constitutional Vitals: Temp Pulse Resp BP Pulse Ox 97.7 F 87 16 134/75 100 12/14/17 08:11 12/14/17 08:13 12/14/17 08:11 12/14/17 08:13 12/14/17 08:11 Exam: Vitals: Reviewed General: Obese white man in no acute didtress Skin: Flushed, multiple scars and excoriations on upper extremities. HEENT: Moist mucous membranes. No conjunctivae pallor. Neck: Short and thick. Chest: Diminished thoracic expansion with reduced breath sounds bilaterally. Heart: Normal S1 & S2; rhythmic. Abdomen: soft and non-tender to palpation. No peritoneal reaction. Extremities: both legs with hyperpigmentation of venous stasis. Neurological: Awake, alert and oriented to person, place and time. No focal deficits. Psych: Affect appropriate. - Head Head exam: Present: atraumatic, normocephalic - Eye Eye exam: Present: PERRL, conjuntiva pink, sclera anicteric Pupils: Present: PERRL - Neck Neck exam general surgery: Present: supple, trachea midline. Absent: lymphadenopathy - Respiratory Respiratory exam: Present: CTAB. Absent: accessory muscle use, rales, rhonchi, wheezes - Cardiovascular Cardiovascular exam: Present: RRR, +S1, +S2. Absent: diastolic murmur, gallop, rubs, systolic murmur - GI/Abdominal GI/Abdominal exam: Present: normal bowel sounds, soft, no peritoneal signs. Absent: distended, tenderness - Extremities Exam Extremities exam: Present: warm, radial pulses palpable and symmetrical. Absent : calf tenderness, cyanotic, pedal edema - Neurological Exam Neurological exam: Present: CN II-XII intact, oriented X3, no focal deficits. Absent: pronater drift, facial droop, speech deficit - Skin Skin exam: Present: dry, intact - Patient Status Disposition: Home, Self-Care Condition: Fair Functional capacity at discharge: independent ambulation Overall status at discharge: patient is back to baseline - Discharge Instructions Instructions: Heart Failure (DC) Follow Up With: Fartun Quinones ORACLE DATABASE DEVELOPER [Primary Care Provider] - - Diet and Activity Activity: increase activity as tolerated Diet: low salt diet
[2017-12-14] MEDS: FLUoxetine 20 MG CAPSULE PO SCH (08:41)
[2017-12-14] MEDS: Insulin LISPRO 300 UNITS/3 ML VIAL SQ SCH ×4 (08:49→21:05)
[2017-12-14 10:21] LABS: Basophils % 0.3 %; Eosinophils # 0.1 K/mcL (0.0-0.6); Eosinophils % 1.1 %; Hematocrit 41.1 % (37.5-50.1); Hemoglobin 13.4 g/dL (12.9-16.9); Immature Granulocytes % 0.5 % (0-4); Lymphocytes # 1.9 K/mcL (0.6-4.6); Lymphocytes % 23.8 %; Mean Corpuscular HGB Conc 32.6 g/dL (31.6-35.5); Mean Corpuscular Hemoglobin 29.6 pg (28.0-33.3); Mean Corpuscular Volume 90.9 fL (83.0-100.0); Mean Platelet Volume 10.7 fL (9.4-12.4); Monocytes # 0.7 K/mcL (0.0-1.3); Monocytes % 8.6 %; Neutrophils # 5.3 K/mcL (1.6-8.9); Platelet Count 179 K/mcL (140-400); Red Blood Count 4.52 M/mcL (4.19-5.50); Red Cell Distribution Width 14.8 % (11.5-14.5); Segmented Neutrophils % 65.7 %
[2017-12-14 10:27] LABS: Prothrombin Time 33.3 Seconds (9.4-12.1)
[2017-12-14] MEDS: Furosemide 40 MG/4 ML VIAL IVP SCH ×2 (11:15→17:51)
[2017-12-14 11:46] LABS: BUN/Creatinine Ratio 19 (6-26); Blood Urea Nitrogen 17 mg/dL (8-23); Carbon Dioxide 26 mEq/L (23-29); Chloride 103 mEq/L (98-107); Glucose 140 mg/dL (70-105); Osmolality,Calculated 286 (280-300); Sodium 136 mEq/L (136-145); eGFR For Non-African Americans > 60 (> 60)
[2017-12-14 11:48] LABS: Potassium 3.9 mEq/L (3.5-5.1)
--- NOTE | 2017-12-14 14:29 | Internal Med Progress Note ---
Hospitalist Progress Note - Encounter Date of Encounter: 12/14/17 Time of Encounter: 14:25 - Subjective Interval History: Patient seen and examined at bedside . Denies any CP or SOB at this time . Complains of chronic pain in L shoulder . Patient complaining of increasing SOB CXR shows slows slowly resolving pulmonary edema- I had anticipated discharge however patient requesting to stay overnight he feels he need cont IV diuretics . We will monitor overnight - Exam Vitals: Temp Pulse Resp BP Pulse Ox 97.2 F L 70 16 123/81 98 12/14/17 11:41 12/14/17 11:41 12/14/17 11:41 12/14/17 11:41 12/14/17 11:41 Exam: Vitals: Reviewed General: Obese white man in no acute didtress Skin: Flushed, multiple scars and excoriations on upper extremities. HEENT: Moist mucous membranes. No conjunctivae pallor. Neck: Short and thick. Chest: lung sounds clear Heart: Normal S1 & S2; rhythmic. Abdomen: soft and non-tender to palpation. No peritoneal reaction. Extremities: both legs with hyperpigmentation of venous stasis. Neurological: Awake, alert and oriented to person, place and time. No focal deficits. Psych: Affect appropriate. - Assessment and Plan (1) COPD (chronic obstructive pulmonary disease) Current Visit: Yes Status: Chronic Assessment and Plan: . No wheezing stable at this time No indication for antibiotics at this time. Cont bronchodilators . Continue LABA/ICS (2) Diastolic heart failure Current Visit: Yes Status: Chronic Assessment and Plan: Improving Monitor I/O dialy weight - fluid restriction 1500ml CXR show slowly improving pulmonary edema Cont, beta alf and ACEI Lasix IV low salt diet (3) Shortness of breath Current Visit: Yes Status: Acute Assessment and Plan: improving We will continue nebulizer treatments cont with O2 and CPAP at night (4) CAD (coronary artery disease) Current Visit: Yes Status: Chronic Assessment and Plan: No signs of acute ischemic disease at this time.- nitroglycerin as needed for cp Currently not on antiplatelet therapy as he is on anticoagulants. Continue statin therapy. Outpatient cardiology follow up. (5) BECK (obstructive sleep apnea) Current Visit: Yes Status: Chronic Assessment and Plan: The patient has been off his machine for a while which has exacerbated his breathing difficulties. Will place on CPAP qHS. licensed master social worker consulted concerning CPAP (6) DDD (degenerative disc disease), lumbar Current Visit: Yes Status: Chronic Assessment and Plan: Left shoulder muscle and joint aches persist and is on long-term oxycodone prn which will be continued. Has seen ortho in the past which has recommended PT and possible surgery- patient has opted for conservative measures - PT (7) Hypothyroidism Current Visit: No Status: Chronic Assessment and Plan: Currently eumetabolic based on TSH of 1.5 (8) Morbid obesity Current Visit: Yes Status: Chronic Assessment and Plan: Will benefit from technology education teacher consultation. Encourage weight loss (9) Hypotension Current Visit: Yes Status: Acute Assessment and Plan: patient had some hypotension - this has resolved we resume lasix DVT Prophylaxis: on coumadin - Time Spent with Patient Total time spent is greater than 50% in coordination of care (as documented) at patient's floor/unit and/or counseling patient: Internal Medicine: Result - Labs CBC & Chem 7: 12/14/17 09:55 12/14/17 09:55 Labs: Short CBC 12/14/17 Range/Units 09:55 WBC 8.0 (4.3-11.1) K/mcL Hgb 13.4 (12.9-16.9) g/dL Hct 41.1 (37.5-50.1) % Plt Count 179 (140-400) K/mcL Neutrophils # 5.3 (1.6-8.9) K/mcL BMP 12/14/17 09:55 Sodium 136 Potassium 3.9 Chloride 103 Carbon Dioxide 26 BUN 17 Creatinine 0.89 Glucose 140 H Calcium 9.0 - ABG Interpretation ABG results: PT/INR, D-dimer PT 33.3 Seconds (9.4-12.1) H 12/14/17 09:55 - Impressions Impressions Chest X-Ray 12/14/17 08:41 IMPRESSION: Improving aeration of the lungs suggesting slowly resolving pulmonary edema. D/ / 12/14/2017 13:38:46 Justin Young MD / salty Interpreting Provider: Justin Young MD Consult Discharge Plan - Plan Instructions: Heart Failure (DC) Referrals: Fartun Quinones, GLASS BLOWING INSTRUCTOR [Primary Care Provider] - (1) COPD (chronic obstructive pulmonary disease) Qualifiers: COPD type: unspecified COPD Qualified Code(s): J44.9 - Chronic obstructive pulmonary disease, unspecified (2) Diastolic heart failure Qualifiers: Heart failure chronicity: acute on chronic Qualified Code(s): I50.33 - Acute on chronic diastolic (congestive) heart failure (4) CAD (coronary artery disease) Qualifiers: Coronary Disease-Associated Artery/Lesion type: [place] artery [place] vs. transplanted heart: [place] heart Associated angina: without angina Qualified Code(s): I25.10 - Atherosclerotic heart disease of [place] coronary artery without angina pectoris (7) Hypothyroidism Qualifiers: Hypothyroidism type: unspecified Qualified Code(s): E03.9 - Hypothyroidism, unspecified (9) Hypotension Qualifiers: Hypotension type: unspecified hypotension type Qualified Code(s): I95.9 - Hypotension, unspecified
[2017-12-14] MEDS: Ipratropium/Albuterol Neb 3 ML IH SCH ×2 (16:01→22:25)
[2017-12-14] MEDS ORDERED: Warfarin perPT PO PRN (17:45)
[2017-12-14] MEDS ORDERED: *HR* Warfarin 2.5 MG TABLET PO ONE (18:00)
[2017-12-14] MEDS: Gabapentin 300 MG CAPSULE PO SCH (20:49)
[2017-12-14] MEDS: traZODone 50 MG TABLET PO SCH (20:50)
[2017-12-15] MEDS: Ipratropium/Albuterol Neb 3 ML IH SCH ×2 (03:56→11:23)
[2017-12-15 04:48] LABS: Basophils # 0.1 K/mcL (0.0-0.2); Basophils % 0.6 %; Eosinophils # 0.1 K/mcL (0.0-0.6); Eosinophils % 1.8 %; Hematocrit 39.5 % (37.5-50.1); Hemoglobin 12.5 g/dL (12.9-16.9); Immature Granulocytes % 0.4 % (0-4); Lymphocytes % 37.3 %; Mean Corpuscular HGB Conc 31.6 g/dL (31.6-35.5); Mean Corpuscular Hemoglobin 28.7 pg (28.0-33.3); Mean Corpuscular Volume 90.6 fL (83.0-100.0); Mean Platelet Volume 10.7 fL (9.4-12.4); Monocytes % 12.2 %; Neutrophils # 3.8 K/mcL (1.6-8.9); Platelet Count 174 K/mcL (140-400); Red Blood Count 4.36 M/mcL (4.19-5.50); Red Cell Distribution Width 14.9 % (11.5-14.5); Segmented Neutrophils % 47.7 %
[2017-12-15 04:49] LABS: INR 2.9
[2017-12-15 05:06] LABS: BUN/Creatinine Ratio 24 (6-26); Blood Urea Nitrogen 20 mg/dL (8-23); Calcium 8.9 mg/dL (8.6-10.3); Carbon Dioxide 29 mEq/L (23-29); Chloride 103 mEq/L (98-107); Glucose 128 mg/dL (70-105); Osmolality,Calculated 290 (280-300); Potassium 3.5 mEq/L (3.5-5.1); Sodium 138 mEq/L (136-145); eGFR For Non-African Americans > 60 (> 60)
[2017-12-15 07:33] VITALS: BP 110/62
[2017-12-15] MEDS: Insulin LISPRO 300 UNITS/3 ML VIAL SQ SCH (07:42)
[2017-12-15] MEDS: FLUoxetine 20 MG CAPSULE PO SCH (09:00)
[2017-12-15] MEDS: Furosemide 40 MG/4 ML VIAL IVP SCH (09:00)
[2017-12-15] MEDS ORDERED: *HR* Warfarin 5 MG TABLET PO ONE (18:00)
== END 2017-12-15 14:20 | disposition home or self-care (01) | DRG 292 ==
LOC: EMEROOARM 16:38 → 3BNU 16:38
PROVIDERS: ADMIT Internal Medicine; ATTEND Internal Medicine

== ENCOUNTER 2018-02-21 06:51 | Inpatient (IN) ==
[2018-02-21] MEDS ORDERED: Ipratropium/Albuterol Neb 3 ML IH ONE (06:56)
[2018-02-21] MEDS ORDERED: methylPREDNISolone 125 MG/2 ML VIAL IVP ONE (06:56)
--- NOTE | 2018-02-21 07:44 | Emergency Department Note ---
Disposition Clinical Impression: COPD with acute exacerbation, Pulmonary vascular congestion Disposition: Admitted As Inpatient Condition: Fair Forms: ED Satisfaction Letter SOB HPI - General Chief Complaint: ED Shortness of Breath/Dyspnea Stated Complaint: EVERT, COPD Time Seen by Provider: 02/21/18 06:53 Source: patient, other (neighbor) Mode of arrival: private vehicle Limitations: no limitations Nursing Notes Reviewed: Yes Vital Signs Reviewed: Yes - History of Present Illness Pt Subjective Complaint: shortness of breath Onset (ago): hour(s) Context: recent illness (was seen here on 02/15 for EVERT and cellulitis - went home. ), other (Patient states, "My new C-pap machine was blowing cold air when I woke up this AM, that started all of this") Severity: moderate Consistency/Duration: constant Improves with: oxygen, upright position Worsens with: lying flat, exertion Known history of: COPD, congestive heart failure Associated symptoms: Reports: chest pain ("tighness), cough, wheezing, orthopnea. Denies: pain with inspiration, fever, sputum production, lower extremity pain, polyuria, polydipsia, parasthesias, palpitations, hemoptysis, diaphoresis, nausea/vomiting, syncope, abdominal pain, rash, sense of impending doom Treatment prior to arrival: oxygen Cough present: Yes Cough Description: Voluntary, Involuntary, Non-Productive, Loose Cough Frequency: Intermittent Sputum production: No Sputum Amount: None - Related Data Home oxygen amount: CPAP Home Medications Medication Instructions Recorded Confirmed Albuterol Sulfate [Albuterol 2 puff IH Q4H PRN 08/04/16 12/10/17 Inhaler] Docusate Sodium [Stool Softener] 100 mg PO BID PRN 08/04/16 12/10/17 FLUoxetine HCl [Prozac] 20 mg PO DAILY 08/04/16 12/10/17 Metformin HCl [Glucophage] 1,000 mg PO BID 08/04/16 12/10/17 Nitroglycerin [Nitrostat] 0.4 mg SL Q5M PRN 08/04/16 12/10/17 Omeprazole [PriLOSEC] 20 mg PO BIDAC 08/04/16 12/10/17 Pentoxifylline [TRENtal] 400 mg PO BID 08/04/16 12/10/17 Potassium Chloride [K-Tab ER] 20 meq PO DAILY 08/04/16 12/10/17 Pravastatin Sodium [Pravachol] 40 mg PO HS 08/04/16 12/10/17 Budesonide/Formoterol 160/4.5 2 puff IH BIDR 08/28/17 12/10/17 [Symbicort 160/4.5] Cyclobenzaprine [Flexeril] 10 mg PO TID 08/28/17 12/10/17 Furosemide [Lasix] 80 mg PO BID 08/28/17 12/10/17 Ipratropium Neb [Atrovent Neb] 0.5 mg IH Q8H PRN 09/08/17 12/10/17 Metoprolol Tartrate 50 mg PO BID 12/10/17 12/10/17 Levothyroxine Sodium [Levoxyl] 275 mcg PO DAILY 12/12/17 12/12/17 hydrOXYzine HCl [Hydroxyzine HCl] 25 mg PO Q8H PRN 02/21/18 02/21/18 Previous Rx's Medication Instructions Recorded Warfarin perPT [Coumadin perPT] 10 mg PO 1800 #30 tablet 01/01/17 Gabapentin [Neurontin] 600 mg PO HS #20 capsule 09/13/17 LORazepam [Ativan] 0.5 mg PO DAILY PRN 10 Days #10 09/13/17 tablet Oxycodone HCl/Acetaminophen 1 each PO Q6H PRN 5 Days #14 tablet 09/13/17 [Percocet 7.5-325 mg Tablet] traZODone [TraZODone] 50 mg PO HS #0 tablet 09/13/17 Cephalexin [Keflex] 500 mg PO QID #28 capsule 02/15/18 Sulfamethoxazole/Trimeth DS 1 each PO DAILY #10 tablet 02/15/18 [Bactrim DS] Allergies Allergy/AdvReac Type Severity Reaction Status Date / Time Amoxicillin [From Augmentin] Allergy Palpitation Verified 02/21/18 07:01 s clavulanic acid Allergy Palpitation Verified 02/21/18 07:01 [From Augmentin] s meperidine [From Demerol] Allergy Palpitation Verified 02/21/18 07:01 s sulfamethoxazole Allergy Rash Verified 02/21/18 07:01 [From Bactrim] trimethoprim [From Bactrim] Allergy Rash Verified 10/27/18 07:01 All systems ED: reviewed and negative except as stated. Review of Systems: As Per HPI Constitutional: Denies: fever, chills, weakness, weight change, night sweats Eyes: Denies: vision change ENT ED: Denies: throat pain, congestion, dysphagia Cardiovascular: Reports: as per HPI, chest pain, dyspnea on exertion, orthopnea, edema. Denies: palpitations, syncope Respiratory: Reports: cough, dyspnea, wheezes. Denies: hemoptysis, stridor, sputum production Gastrointestinal: Denies: abdominal pain, nausea, vomiting, diarrhea Genitourinary: Denies: dysuria, frequency, hematuria Integumentary: Denies: rash, lesions, pruritus Neurological: Denies: headache, weakness, confusion, vertigo Hematological/Lymphatic: Denies: easy bleeding, easy bruising, lymphadenopathy Past Medical History - Past Medical History Attestation: Yes The following information was validated with the patient. Source: patient Medical history: Reports: asthma, atrial fibrillation, CHF, COPD, coronary artery disease, diabetes, hyperlipidemia, hypertension, myocardial infarction, peripheral artery disease, thyroid disease, other Surgical history: Reports: angioplasty/stent, orthopedic, other Psychiatric history: Reports: anxiety, depression - Social History Smoking Status: Current every day smoker Smokeless Tobacco Status: No Alcohol use: Reports: none Drug use: Reports: none Physical Exam - General Limitations: no limitations General appearance: alert, in distress - Head Head exam: atraumatic, normocephalic, normal inspection - Eye Eye exam: Present: normal appearance, PERRL. Absent: scleral icterus, c onjunctival injection, periorbital swelling - ENT ENT exam: mucous membranes dry - Expanded ENT Exam External ear exam: Present: normal external inspection. Absent: mastoid tenderness, periauricular adenopathy Nose exam: negative: rhinorrhea, sinus tenderness Mouth exam: Present: normal external inspection, tongue normal. Absent: drooling, tongue elevation Throat exam: Present: other (post nasal drainage, mild posterior pharyngeal erythema - no edema, no thrush). Absent: tonsillar erythema, tonsillomegaly, tonsillar exudate, R peritonsillar mass, L peritonsillar mass, muffled voice - Neck Neck exam: Present: normal inspection, full ROM, trachea midline. Absent: tenderness, meningismus, lymphadenopathy, thyromegaly - Expanded Neck Exam Neck exam focused ED: Absent: JVD, carotid bruit - Chest Chest inspection: Present: other (gynecomastia) - Respiratory Respiratory exam: Present: respiratory distress, wheezes. Absent: stridor, accessory muscle use, prolonged expiratory phase - Cardiovascular Cardiovascular exam: Present: regular rate, normal rhythm - Abdominal Exam Abdominal exam: Present: soft, Non-Tender. Absent: guarding, rebound, rigidity, ascites, mass - Extremities Exam Extremities exam: Present: normal capillary refill, pedal edema, other (left dorsal distal arm and forearm with mild erythema, edema and tenderness). Absent: tenderness, joint swelling, calf tenderness - Expanded Upper Extremity Exam Shoulder exam: Present: normal inspection, full ROM. Absent: tenderness Arm exam: Present: tenderness, swelling, erythema Elbow exam: Present: tenderness, swelling. Absent: erythema Forearm/Wrist exam: Present: tenderness, swelling, erythema Hand exam: Present: swelling. Absent: tenderness, ecchymosis, erythema Vascular exam: Normal: capillary refill, radial pulse, ulnar pulse - Expanded Lower Extremity Exam Knee exam: Present: full ROM, knee extension intact. Absent: tenderness, swelling Lower leg exam: Present: swelling. Absent: tenderness, erythema, Homans' sign Ankle exam: Present: full ROM, swelling. Absent: tenderness, erythema Foot/toe exam: Present: full ROM, swelling. Absent: tenderness, erythema Neurovascular/Tendon exam: Absent: pulse deficit, motor deficit - Neurological Exam Neurological exam: Present: alert, oriented X3, CN II-XII intact, normal gait - Psychiatric Psychiatric exam: Present: normal affect, normal mood - Skin Skin exam: Present: warm, dry, intact Course Course Narrative: Patient presents to ED for evaluation of shortness of breath and continued left pain and swelling. He also describes increased edema in his lower extremities bilaterally. He has history of CHF and COPD along with recently diagnosed cellulitis in the left upper extremity. He has been taking Keflex for this. He states that it has not improved. He denies fever, chills, nausea or vomiting. He has had no change in his cough. He describes it as dry and hacking. He states that it is from his COPD. He has felt short of breath since using his new CPAP machine. He states, "it blows cold air." On exam, he is wheezing diffusely throughout with significant bilateral lower extremity pitting edema. Negative Homans sign. No cellulitis in the lower extremities. Mild erythema, edema and tenderness in the dorsal aspect of the left proximal forearm and distal humeral area. Labs, meds, EKG and x-ray ordered. Case discussed with Dr. Selene Melchor. She has had [id number] time with the patient has reviewed the EKG lab and x-ray findings and agrees with the assessment and plan. Of note, she also saw this patient when he was here on the . Patient's EKG shows a sinus rhythm with no ST elevation or depression. Mild flattening of the T waves in lead two and three, otherwise unchanged compared to previous chest x-ray shows pulmonary vascular congestion. Labs show an INR of four, normal troponin, normal BMP, glucose 136. He received Solu-Medrol, Lasix, DuoNeb treatments and vancomycin. On reevaluation, he states that he feels like his legs are even more swollen than they were when he got here and he still feels short of breath. Plan is for admission. Patient has been accepted for admission to the hospitalist. Vital Signs Temperature 98.1 F 02/21/18 06:57 Pulse Rate 66 02/21/18 06:57 Respiratory Rate 22 02/21/18 06:57 Blood Pressure 136/116 02/21/18 06:57 O2 Sat by Pulse Oximetry 100 02/21/18 06:57 Temperature 98.1 F 02/21/18 07:25 Pulse Rate 71 02/21/18 09:50 Respiratory Rate 20 02/21/18 09:50 Blood Pressure 121/75 02/21/18 09:50 O2 Sat by Pulse Oximetry 100 02/21/18 09:50 Oxygen Delivery Oxygen Delivery Nasal Cannula Shortness of Breath/Dyspnea - Lab Data Result diagrams: 02/21/18 07:35 02/21/18 07:35 Lab Results 02/21/18 02/21/18 02/21/18 Range/Units 07:35 07:35 07:35 WBC 10.7 (4.3-11.1) K/mcL RBC 4.92 (4.19-5.50) M/mcL Hgb 14.0 (12.9-16.9) g/dL Hct 44.5 (37.5-50.1) % MCV 90.4 (83.0-100.0) fL MCH 28.5 (28.0-33.3) pg MCHC 31.5 L (31.6-35.5) g/dL RDW 14.3 (11.5-14.5) % Plt Count 215 (140-400) K/mcL MPV 10.5 (9.4-12.4) fL Immature Gran % 0.5 (0-4) % Seg Neutrophils % 49.2 % Lymphocytes % 40.1 % Monocytes % 8.1 % Eosinophils % 1.6 % Basophils % 0.5 % Neutrophils # 5.3 (1.6-8.9) K/mcL Lymphocytes # 4.3 (0.6-4.6) K/mcL Monocytes # 0.9 (0.0-1.3) K/mcL Eosinophils # 0.2 (0.0-0.6) K/mcL Basophils # 0.1 (0.0-0.2) K/mcL PT (9.4-12.1) Seconds INR Sodium 140 (136-145) mEq/L Potassium 4.2 (3.5-5.1) mEq/L Chloride 106 (98-107) mEq/L Carbon Dioxide 27 (23-29) mEq/L BUN 10 (8-23) mg/dL Creatinine 0.83 (0.70-1.30) mg/dL Est GFR ( Amer) > 60 (> 60) Est GFR (Non-Af Amer) > 60 (> 60) BUN/Creatinine Ratio 12 (6-26) Glucose 136 H (70-105) mg/dL Calculated Osmolality 291 (280-300) Calcium 8.9 (8.6-10.3) mg/dL Troponin I < 0.03 (< 0.04) ng/mL B-Natriuretic Peptide 86 (Less than 100) pg/mL 02/21/18 Range/Units 07:35 WBC (4.3-11.1) K/mcL RBC (4.19-5.50) M/mcL Hgb (12.9-16.9) g/dL Hct (37.5-50.1) % MCV (83.0-100.0) fL MCH (28.0-33.3) pg MCHC (31.6-35.5) g/dL RDW (11.5-14.5) % Plt Count (140-400) K/mcL MPV (9.4-12.4) fL Immature Gran % (0-4) % Seg Neutrophils % % Lymphocytes % % Monocytes % % Eosinophils % % Basophils % % Neutrophils # (1.6-8.9) K/mcL Lymphocytes # (0.6-4.6) K/mcL Monocytes # (0.0-1.3) K/mcL Eosinophils # (0.0-0.6) K/mcL Basophils # (0.0-0.2) K/mcL PT 46.1 H* (9.4-12.1) Seconds INR 4.1 Sodium (136-145) mEq/L Potassium (3.5-5.1) mEq/L Chloride (98-107) mEq/L Carbon Dioxide (23-29) mEq/L BUN (8-23) mg/dL Creatinine (0.70-1.30) mg/dL Est GFR ( Amer) (> 60) Est GFR (Non-Af Amer) (> 60) BUN/Creatinine Ratio (6-26) Glucose (70-105) mg/dL Calculated Osmolality (280-300) Calcium (8.6-10.3) mg/dL Troponin I (< 0.04) ng/mL B-Natriuretic Peptide (Less than 100) pg/mL
[2018-02-21 07:49] LABS: Basophils # 0.1 K/mcL (0.0-0.2); Basophils % 0.5 %; Eosinophils # 0.2 K/mcL (0.0-0.6); Eosinophils % 1.6 %; Hematocrit 44.5 % (37.5-50.1); Immature Granulocytes % 0.5 % (0-4); Lymphocytes # 4.3 K/mcL (0.6-4.6); Lymphocytes % 40.1 %; Mean Corpuscular HGB Conc 31.5 g/dL (31.6-35.5); Mean Corpuscular Hemoglobin 28.5 pg (28.0-33.3); Mean Corpuscular Volume 90.4 fL (83.0-100.0); Mean Platelet Volume 10.5 fL (9.4-12.4); Monocytes # 0.9 K/mcL (0.0-1.3); Monocytes % 8.1 %; Neutrophils # 5.3 K/mcL (1.6-8.9); Platelet Count 215 K/mcL (140-400); Red Blood Count 4.92 M/mcL (4.19-5.50); Red Cell Distribution Width 14.3 % (11.5-14.5); Segmented Neutrophils % 49.2 %
[2018-02-21 07:56] LABS: INR 4.1
[2018-02-21 08:02] LABS: Prothrombin Time 46.1 Seconds (9.4-12.1)
[2018-02-21 08:12] LABS: BUN/Creatinine Ratio 12 (6-26); Blood Urea Nitrogen 10 mg/dL (8-23); Calcium 8.9 mg/dL (8.6-10.3); Carbon Dioxide 27 mEq/L (23-29); Chloride 106 mEq/L (98-107); Glucose 136 mg/dL (70-105); Osmolality,Calculated 291 (280-300); Potassium 4.2 mEq/L (3.5-5.1); Sodium 140 mEq/L (136-145); eGFR For Non-African Americans > 60 (> 60)
[2018-02-21 08:13] LABS: Troponin I < 0.03 ng/mL (< 0.04)
[2018-02-21] MEDS ORDERED: Furosemide 40 MG/4 ML VIAL IVP ONE (10:42)
--- NOTE | 2018-02-21 12:38 | Emergency Department Note ---
Disposition Clinical Impression: COPD exacerbation CHF (congestive heart failure) Qualifiers: Heart failure type: unspecified Heart failure chronicity: unspecified Qualified Code(s): I50.9 - Heart failure, unspecified Disposition: Admitted As Inpatient Referrals: Fartun Quinones CNP [Primary Care Provider] - Forms: ED Satisfaction Letter General Adult HPI - General Chief complaint: ED Shortness of Breath/Dyspnea Stated complaint: EVERT, COPD Time Seen by Provider: 02/21/18 06:53 Source: patient, other (neighbor) Mode of arrival: private vehicle Limitations: no limitations - History of Present Illness Pain Scale: 0 - Related Data Home Medications Medication Instructions Recorded Confirmed Albuterol Sulfate [Albuterol 2 puff IH Q4H PRN 08/04/16 02/21/18 Inhaler] Docusate Sodium [Stool Softener] 100 mg PO BID PRN 08/04/16 02/21/18 FLUoxetine HCl [Prozac] 20 mg PO DAILY 08/04/16 02/21/18 Metformin HCl [Glucophage] 1,000 mg PO BID 08/04/16 02/21/18 Nitroglycerin [Nitrostat] 0.4 mg SL Q5M PRN 08/04/16 02/21/18 Omeprazole [PriLOSEC] 20 mg PO BIDAC 08/04/16 02/21/18 Pentoxifylline [TRENtal] 400 mg PO BID 08/04/16 02/21/18 Potassium Chloride [K-Tab ER] 20 meq PO DAILY 08/04/16 02/21/18 Pravastatin Sodium [Pravachol] 40 mg PO HS 08/04/16 02/21/18 Budesonide/Formoterol 160/4.5 2 puff IH BIDR 08/28/17 02/21/18 [Symbicort 160/4.5] Cyclobenzaprine [Flexeril] 10 mg PO TID 08/28/17 02/21/18 Furosemide [Lasix] 80 mg PO BID 08/28/17 02/21/18 Ipratropium Neb [Atrovent Neb] 0.5 mg IH Q8H PRN 09/08/17 02/21/18 Metoprolol Tartrate 50 mg PO BID 12/10/17 02/21/18 Levothyroxine Sodium [Levoxyl] 275 mcg PO DAILY 12/12/17 02/21/18 hydrOXYzine HCl [Hydroxyzine HCl] 25 mg PO Q8H PRN 02/21/18 02/21/18 Previous Rx's Medication Instructions Recorded Warfarin perPT [Coumadin perPT] 10 mg PO 1800 #30 tablet 01/01/17 Gabapentin [Neurontin] 600 mg PO HS #20 capsule 09/13/17 LORazepam [Ativan] 0.5 mg PO DAILY PRN 10 Days #10 09/13/17 tablet Oxycodone HCl/Acetaminophen 1 each PO Q6H PRN 5 Days #14 tablet 09/13/17 [Percocet 7.5-325 mg Tablet] traZODone [TraZODone] 50 mg PO HS #0 tablet 09/13/17 Cephalexin [Keflex] 500 mg PO QID #28 capsule 02/15/18 Sulfamethoxazole/Trimeth DS 1 each PO DAILY #10 tablet 02/15/18 [Bactrim DS] Allergies Allergy/AdvReac Type Severity Reaction Status Date / Time Amoxicillin [From Augmentin] Allergy Palpitation Verified 02/21/18 07:01 s clavulanic acid Allergy Palpitation Verified 02/21/18 07:01 [From Augmentin] s meperidine [From Demerol] Allergy Palpitation Verified 02/21/18 07:01 s sulfamethoxazole Allergy Rash Verified 02/21/18 07:01 [From Bactrim] trimethoprim [From Bactrim] Allergy Rash Verified 02/21/18 07:01 Constitutional: Denies: fever, chills, weakness, weight change, night sweats Eyes: Denies: vision change ENT ED: Denies: throat pain, congestion, dysphagia Cardiovascular: Reports: as per HPI, chest pain, dyspnea on exertion, orthopnea, edema. Denies: palpitations, syncope Respiratory: Reports: cough, dyspnea, wheezes. Denies: hemoptysis, stridor, sputum production Gastrointestinal: Denies: abdominal pain, nausea, vomiting, diarrhea Genitourinary: Denies: dysuria, frequency, hematuria Integumentary: Denies: rash, lesions, pruritus Neurological: Denies: headache, weakness, confusion, vertigo Hematological/Lymphatic: Denies: easy bleeding, easy bruising, lymphadenopathy Past Medical History - Past Medical History Medical history: Reports: asthma, atrial fibrillation, CHF, COPD, coronary artery disease, diabetes, hyperlipidemia, hypertension, myocardial infarction, peripheral artery disease, thyroid disease, other Surgical history: Reports: angioplasty/stent, orthopedic, other Psychiatric history: Reports: anxiety, depression - Social History Smoking Status: Current every day smoker Smokeless Tobacco Status: No Alcohol use: Reports: none Drug use: Reports: none Physical Exam - General Limitations: no limitations General appearance: alert, in distress Course Vital Signs Temperature 98.1 F 02/21/18 06:57 Pulse Rate 66 02/21/18 06:57 Respiratory Rate 22 02/21/18 06:57 Blood Pressure 136/116 02/21/18 06:57 O2 Sat by Pulse Oximetry 100 02/21/18 06:57 Temperature 98.1 F 02/21/18 07:25 Pulse Rate 69 02/21/18 11:27 Respiratory Rate 22 02/21/18 11:27 Blood Pressure 122/80 02/21/18 11:27 O2 Sat by Pulse Oximetry 99 02/21/18 11:27 Oxygen Delivery Oxygen Delivery Nasal Cannula Medical Decision Making - Lab Data Result diagrams: 02/21/18 07:35 02/21/18 07:35 Lab Results 02/21/18 02/21/18 02/21/18 Range/Units 07:35 07:35 07:35 WBC 10.7 (4.3-11.1) K/mcL RBC 4.92 (4.19-5.50) M/mcL Hgb 14.0 (12.9-16.9) g/dL Hct 44.5 (37.5-50.1) % MCV 90.4 (83.0-100.0) fL MCH 28.5 (28.0-33.3) pg MCHC 31.5 L (31.6-35.5) g/dL RDW 14.3 (11.5-14.5) % Plt Count 215 (140-400) K/mcL MPV 10.5 (9.4-12.4) fL Immature Gran % 0.5 (0-4) % Seg Neutrophils % 49.2 % Lymphocytes % 40.1 % Monocytes % 8.1 % Eosinophils % 1.6 % Basophils % 0.5 % Neutrophils # 5.3 (1.6-8.9) K/mcL Lymphocytes # 4.3 (0.6-4.6) K/mcL Monocytes # 0.9 (0.0-1.3) K/mcL Eosinophils # 0.2 (0.0-0.6) K/mcL Basophils # 0.1 (0.0-0.2) K/mcL PT (9.4-12.1) Seconds INR Sodium 140 (136-145) mEq/L Potassium 4.2 (3.5-5.1) mEq/L Chloride 106 (98-107) mEq/L Carbon Dioxide 27 (23-29) mEq/L BUN 10 (8-23) mg/dL Creatinine 0.83 (0.70-1.30) mg/dL Est GFR ( Amer) > 60 (> 60) Est GFR (Non-Af Amer) > 60 (> 60) BUN/Creatinine Ratio 12 (6-26) Glucose 136 H (70-105) mg/dL Calculated Osmolality 291 (280-300) Lactic Acid (0.5-2.2) mmol/L Calcium 8.9 (8.6-10.3) mg/dL Troponin I < 0.03 (< 0.04) ng/mL B-Natriuretic Peptide 86 (Less than 100) pg/mL 02/21/18 02/21/18 Range/Units 07:35 11:27 WBC (4.3-11.1) K/mcL RBC (4.19-5.50) M/mcL Hgb (12.9-16.9) g/dL Hct (37.5-50.1) % MCV (83.0-100.0) fL MCH (28.0-33.3) pg MCHC (31.6-35.5) g/dL RDW (11.5-14.5) % Plt Count (140-400) K/mcL MPV (9.4-12.4) fL Immature Gran % (0-4) % Seg Neutrophils % % Lymphocytes % % Monocytes % % Eosinophils % % Basophils % % Neutrophils # (1.6-8.9) K/mcL Lymphocytes # (0.6-4.6) K/mcL Monocytes # (0.0-1.3) K/mcL Eosinophils # (0.0-0.6) K/mcL Basophils # (0.0-0.2) K/mcL PT 46.1 H* (9.4-12.1) Seconds INR 4.1 Sodium (136-145) mEq/L Potassium (3.5-5.1) mEq/L Chloride (98-107) mEq/L Carbon Dioxide (23-29) mEq/L BUN (8-23) mg/dL Creatinine (0.70-1.30) mg/dL Est GFR ( Amer) (> 60) Est GFR (Non-Af Amer) (> 60) BUN/Creatinine Ratio (6-26) Glucose (70-105) mg/dL Calculated Osmolality (280-300) Lactic Acid 2.4 H (0.5-2.2) mmol/L Calcium (8.6-10.3) mg/dL Troponin I (< 0.04) ng/mL B-Natriuretic Peptide (Less than 100) pg/mL Attestation Statement - Attestation Attestation: I examined this patient and my medical decision-making was reviewed with the Resident Physician. I agree with the documented findings, disposition and treatment plan as described except to the extent set forth below. 63 year old male presents to the ED with complaints of EVERT and states that he has COPD and CHF. It appears to be exertional. troponin negstive, EKG is at baseline. WE will admit to medicne. Likely and excerabation of both
--- NOTE | 2018-02-21 16:54 | Internal Med History&Physical ---
Date of Encounter: 02/21/18 Time of Encounter: 16:00 Internal Medicine - H&P: HPI Chief complaint: Shortness of breath Admitted From: Home History of present illness: Patient is a 63-year-old male with past medical history significant for multiple admissions for CHF and COPD exacerbations, with O2 dependent COPD, ischemic cardiomyopathy (1 stent), diabetes, peripheral arterial disease and hypothyroid who presents to the ER on 02/21/18 due to shortness of breath. Patient reports of come into the ER due to waking up in the middle night feeling short of breath. Patient attributes his shortness of breath due to malfunction of NIPPV. In the ER, patients BNP down to be elevated greater than baseline; patient is obese with a BMI of 59.5. Chest x-ray showed pulmonary vascular congestion. Patient was without leukocytosis and afebrile; no infiltrates identified on chest x-ray. Patient was given a dose of IV Solu-Medrol and IV Lasix in addition to dual nebs in the ER. Patient is being admitted for acute on chronic diastolic heart failure with COPD exacerbation. Past Med Surg Social Fam HX - Past Medical History Medical history: asthma, atrial fibrillation, CHF, COPD, coronary artery disease, diabetes, hyperlipidemia, hypertension, myocardial infarction, peripheral artery disease, thyroid disease, other Additional medical history: A-FIB Psychiatric history: anxiety, depression - Past Surgical History Surgical History: angioplasty/stent, orthopedic, other Additional surgical history: one cardiac stent. left hand surgery - Social History Smoking Status: Current every day smoker Smokeless Tobacco Status: No Alcohol use: none Drug use: none - Family History Mother Family Member Ethnicity: Non- Living Status: Age at : 70 Cause of : Cirrhosis Hx Family Cardiac Disorders: No Hx Family Respiratory Disorders: No Father Family Member Ethnicity: Non- Living Status: Age at : 84 Cause of : Pancreatic cancer Hx Family Cardiac Disorders: No Hx Family Respiratory Disorders: No Hx Family Cancer: Yes Brother Age: 67 Family Member Ethnicity: Non- Living Status: Still Living Hx Family Cardiac Disorders: Yes (Pacemaker) Hx Family Endocrine Disorder: Yes (DM) Sister Family Member Ethnicity: Non- Living Status: Still Living Hx Family Cardiac Disorders: No Hx Family Respiratory Disorders: No Hx Family Cancer: Yes (dad pancereas) Hx Family GI Disorders: No Hx Family Endocrine Disorder: No Hx Family Neuromuscular Disorders: No Hx Family Neurologic Disorders: No Hx Family HEENT Disorders: No Hx Family Autoimmune Disorders: No Internal Medicine - H&P: Meds Albuterol Sulfate [Albuterol Inhaler] 2 puff IH Q4H PRN 08/04/16 [History] Docusate Sodium [Stool Softener] 100 mg PO BID PRN 08/04/16 [History] FLUoxetine HCl [Prozac] 20 mg PO DAILY 08/04/16 [History] Metformin HCl [Glucophage] 1,000 mg PO BID 08/04/16 [History] Nitroglycerin [Nitrostat] 0.4 mg SL Q5M PRN 08/04/16 [History] Omeprazole [PriLOSEC] 20 mg PO BIDAC 08/04/16 [History] Pentoxifylline [TRENtal] 400 mg PO BID 08/04/16 [History] Potassium Chloride [K-Tab ER] 20 meq PO DAILY 08/04/16 [History] Pravastatin Sodium [Pravachol] 40 mg PO HS 08/04/16 [History] Warfarin perPT [Coumadin perPT] 10 mg PO 1800 #30 tablet 01/01/17 [Rx] Budesonide/Formoterol 160/4.5 [Symbicort 160/4.5] 2 puff IH BIDR 08/28/17 [History] Cyclobenzaprine [Flexeril] 10 mg PO TID 08/28/17 [History] Furosemide [Lasix] 80 mg PO BID 08/28/17 [History] Ipratropium Neb [Atrovent Neb] 0.5 mg IH Q8H PRN 09/08/17 [History] Gabapentin [Neurontin] 600 mg PO HS #20 capsule 09/13/17 [Rx] LORazepam [Ativan] 0.5 mg PO DAILY PRN 10 Days #10 tablet 09/13/17 [Rx] Oxycodone HCl/Acetaminophen [Percocet 7.5-325 mg Tablet] 1 each PO Q6H PRN 5 Days #14 tablet 09/13/17 [Rx] traZODone [TraZODone] 50 mg PO HS #0 tablet 09/13/17 [Rx] Metoprolol Tartrate 50 mg PO BID 12/10/17 [History] Levothyroxine Sodium [Levoxyl] 275 mcg PO DAILY 12/12/17 [History] Cephalexin [Keflex] 500 mg PO QID #28 capsule 02/15/18 [Rx] Sulfamethoxazole/Trimeth DS [Bactrim DS] 1 each PO DAILY #10 tablet 02/15/18 [Rx] hydrOXYzine HCl [Hydroxyzine HCl] 25 mg PO Q8H PRN 02/21/18 [History] Allergy/AdvReac Type Severity Reaction Status Date / Time Amoxicillin [From Augmentin] Allergy Palpitation Verified 02/21/18 07:01 s clavulanic acid Allergy Palpitation Verified 02/21/18 07:01 [From Augmentin] s meperidine [From Demerol] Allergy Palpitation Verified 02/21/18 07:01 s sulfamethoxazole Allergy Rash Verified 02/21/18 07:01 [From Bactrim] trimethoprim [From Bactrim] Allergy Rash Verified 02/21/18 07:01 All Systems PM: A 10-system review of systems was performed and is negative for pertinent findings except as documented above in the HPI. - Constitutional Vitals: Temp Pulse Resp BP Pulse Ox 98.2 F 76 20 102/64 92 02/21/18 14:54 02/21/18 14:54 02/21/18 14:54 02/21/18 14:54 02/21/18 14:54 General appearance: Present: A&O X 3 Exam: As above - Eye Eye exam: Present: normal appearance - ENT ENT exam: Present: mucous membranes moist - Respiratory Respiratory exam: Present: CTAB. Absent: accessory muscle use, rales, rhonchi, wheezes - Cardiovascular Cardiovascular exam: Present: RRR, +S1, +S2. Absent: diastolic murmur, gallop, rubs, systolic murmur - GI/Abdominal GI/Abdominal exam: Present: soft (Obese) - Expanded Lower Extremities Exam Lower Leg exam: Present: swelling - Neurological Exam Neurological exam: Present: alert, oriented X3 - Psychiatric Psychiatric exam: Present: normal mood - Skin Skin exam: Present: normal color Internal Med - H&P Results - Labs CBC & Chem 7: 02/21/18 07:35 02/21/18 07:35 Labs: Short CBC 02/21/18 Range/Units 07:35 WBC 10.7 (4.3-11.1) K/mcL Hgb 14.0 (12.9-16.9) g/dL Hct 44.5 (37.5-50.1) % Plt Count 215 (140-400) K/mcL Neutrophils # 5.3 (1.6-8.9) K/mcL BMP 02/21/18 07:35 Sodium 140 Potassium 4.2 Chloride 106 Carbon Dioxide 27 BUN 10 Creatinine 0.83 Glucose 136 H Calcium 8.9 Cardiac Enzymes 02/21/18 Range/Units 07:35 Troponin I < 0.03 (< 0.04) ng/mL - Impressions ITS Impressions Chest X-Ray 02/21/18 06:57 IMPRESSION: Pulmonary vascular congestion and possible mild edema. D/ / 02/21/2018 07:35:42 Anton Mullen MD / Angelia Rizo Interpreting Provider: Anton Mullen MD - Assessment and plan (1) Acute exacerbation of CHF (congestive heart failure) Current Visit: No Status: Acute Assessment and plan: In the ER, patients BNP down to be elevated greater than baseline; patient is o bese with a BMI of 59.5. Chest x-ray showed pulmonary vascular congestion. Echocardiogram on 08/2017 showed LVEF of 65-70% with no pulmonary hypertension with normal left ventricular diastolic function and no significant valvular dysfunction. Will continue IV diuresis with Lasix 80 mg twice daily Cardiology consulted and appreciate recommendations Qualifiers: Heart failure type: diastolic Qualified Code(s): I50.9 - Heart failure, unspecified (2) COPD exacerbation Current Visit: Yes Status: Acute Assessment and plan: Will continue scheduled dual nebs and IV Solu-Medrol. Will consult pulmonology and appreciate recommendations (3) CAD (coronary artery disease) Current Visit: No Status: Chronic Assessment and plan: Patient with history of coronary arterial stent Qualifiers: Coronary Disease-Associated Artery/Lesion type: [place] artery [place] vs. transplanted heart: [place] heart Associated angina: without angina Qualified Code(s): I25.10 - Atherosclerotic heart disease of [place] coronary artery without angina pectoris (4) Chronic respiratory failure with hypoxia Current Visit: No Status: Chronic Assessment and plan: Patient is currently on his baseline O2 requirements at 2 L of nasal cannula. (5) Diabetes mellitus Current Visit: No Status: Chronic Assessment and plan: Continue home medications Qualifiers: Diabetes mellitus type: type 2 Diabetes mellitus intermodal customer service insulin use: with [facility] use Diabetes mellitus complication status: with unspecified complications Qualified Code(s): E11.8 - Type 2 diabetes mellitus with unspecified complications; Z79.4 - intermediate project manager (current) use of insulin; Z79.4 - longterm (current) use of insulin; Z79.4 - longterm (current) use of insulin; Z79.4 - intermediate project manager (current) use of insulin (6) Hypothyroidism Current Visit: No Status: Chronic Assessment and plan: Continue home medications Qualifiers: Hypothyroidism type: unspecified Qualified Code(s): E03.9 - Hypothyroidism, unspecified (7) BECK (obstructive sleep apnea) Current Visit: No Status: Chronic Assessment and plan: Continue NIPPV daily at bedtime (8) Morbid obesity with BMI of 60.0-69.9, adult Current Visit: No Status: Chronic Assessment and plan: Lifestyle modifications (9) DVT prophylaxis Current Visit: No Status: Acute Assessment and plan: Patient is on Coumadin with supratherapeutic INR at 4.1 Continue to monitor - Time Spent With Patient Total time spent is greater than 50% in coordination of care (as documented) at patient's floor/unit and/or counseling patient:
[2018-02-21] MEDS ORDERED: Naloxone 0.4 MG/ML INJ IVP PRN (18:01)
[2018-02-21] MEDS ORDERED: Nitroglycerin 0.4 MG TAB.SUBL SL PRN (18:11)
[2018-02-21] MEDS ORDERED: *HR* LORazepam 0.5 MG TABLET PO PRN (18:11)
[2018-02-21] MEDS ORDERED: hydrOXYzine pamoate 25 MG CAPSULE PO PRN (18:11)
[2018-02-21] MEDS: Ipratropium/Albuterol Neb 3 ML IH SCH ×2 (20:03→23:02)
[2018-02-21] MEDS: Budesonide/Formoterol 160/4.5 1 PUFF INH IH SCH (20:03)
[2018-02-21] MEDS: Gabapentin 300 MG CAPSULE PO SCH (21:42)
[2018-02-21] MEDS: traZODone 50 MG TABLET PO SCH (21:42)
[2018-02-21] MEDS: *HR* OxyCODONE/APAP 7.5/325 TABLET PO PRN (21:42)
[2018-02-21] MEDS: Furosemide 80 MG in 0.9 % Sodium Chloride 50 ML IVPB SCH (22:13)
[2018-02-21] MEDS: methylPREDNISolone 125 MG/2 ML VIAL IVP SCH (23:17)
[2018-02-22] MEDS: Artificial Tears SOLN 15 ML BOTTLE BOTH EYES SCH ×2 (00:10→20:59)
[2018-02-22] MEDS: Ipratropium/Albuterol Neb 3 ML IH SCH ×6 (03:59→23:45)
[2018-02-22 04:00] LABS: Basophils % 0.1 %; Hematocrit 40.9 % (37.5-50.1); Immature Granulocytes % 0.8 % (0-4); Lymphocytes # 1.7 K/mcL (0.6-4.6); Mean Corpuscular HGB Conc 31.8 g/dL (31.6-35.5); Mean Corpuscular Hemoglobin 28.5 pg (28.0-33.3); Mean Corpuscular Volume 89.7 fL (83.0-100.0); Mean Platelet Volume 10.7 fL (9.4-12.4); Monocytes # 0.3 K/mcL (0.0-1.3); Monocytes % 3.2 %; Neutrophils # 8.3 K/mcL (1.6-8.9); Platelet Count 201 K/mcL (140-400); Red Blood Count 4.56 M/mcL (4.19-5.50); Red Cell Distribution Width 14.3 % (11.5-14.5); Segmented Neutrophils % 79.9 %
[2018-02-22 04:10] LABS: Prothrombin Time 56.4 Seconds (9.4-12.1)
[2018-02-22 04:18] LABS: BUN/Creatinine Ratio 18 (6-26); Blood Urea Nitrogen 14 mg/dL (8-23); Carbon Dioxide 26 mEq/L (23-29); Chloride 103 mEq/L (98-107); Glucose 184 mg/dL (70-105); Osmolality,Calculated 289 (280-300); Potassium 4.2 mEq/L (3.5-5.1); Sodium 137 mEq/L (136-145); eGFR For Non-African Americans > 60 (> 60)
[2018-02-22] MEDS: Budesonide/Formoterol 160/4.5 1 PUFF INH IH SCH ×2 (07:31→20:24)
--- NOTE | 2018-02-22 10:36 | Cardiology Consult Note ---
Date of Encounter: 02/22/18 Time of Encounter: 10:30 Assessment and Plan (1) Shortness of breath Current Visit: No Status: Acute Unclear that he has diastolic CHF as he has had 3 BNP that have been normal on 3 separate admissions. Normal EF by echo and normal valves. More likely contribution from his COPD and morbid obesity BMI 59 (obesity hypoventilation) for his dyspnea. He has significant skin changes on lower extremities consistent with chronic venous insufficiency. If diastolic CHF is present, it would be treated with standard BP control, sodium restriction, daily morning postvoid weights, diuresis to euvolemia using IV loop diuretic (and if necessary zaroxolyn) while monitoring renal function. Advised him of overall worsening medical condition given his BMI is 59. Cardio will sign off, followup with PCP. (2) CAD (coronary artery disease) Current Visit: No Status: Chronic Continue medical management with aspirin, statin, BB. Qualifiers: Coronary Disease-Associated Artery/Lesion type: [place] artery [place] vs. t ransplanted heart: [place] heart Associated angina: without angina Qualified Code(s): I25.10 - Atherosclerotic heart disease of [place] coronary artery without angina pectoris (3) COPD (chronic obstructive pulmonary disease) Current Visit: No Status: Chronic Continue treatment per primary team and already see pulmonary as outpt Qualifiers: COPD type: unspecified COPD Qualified Code(s): J44.9 - Chronic obstructive pulmonary disease, unspecified (4) Afib Current Visit: No Status: Chronic Qualifiers: Atrial fibrillation type: paroxysmal Qualified Code(s): I48.0 - Paroxysmal atrial fibrillation Discussion w patient/family: The assessment and plan as outlined above was discussed with the patient and/or family members who expressed understanding and agreement. All questions were answered. Thank you for involving us in the care of your patient. Please call with any questions. History of Present Illness Consult date: 02/22/18 Consult reason: diastolic chf Chief complaint: dyspnea History of present illness: Mr. Davila is a 63 year old male morbidly obese, severe COPD, CAD sp PCI remotely, diabetes, AF on coumadin and rate control. Consulted for acute diastolic CHF with normal BNP 01/2018 x 2 on separate admissions and normal BNP 11/2017. Multiple TTE in last year with normal EF and no significant valvular disease. Past Med Surg Social Fam HX - Past Medical History Medical history: asthma, atrial fibrillation, CHF, COPD, coronary artery disease, diabetes, hyperlipidemia, hypertension, myocardial infarction, peripheral artery disease, thyroid disease, other Additional medical history: A-FIB Psychiatric history: anxiety, depression - Past Surgical History Surgical History: angioplasty/stent, orthopedic, other Additional surgical history: one cardiac stent. left hand surgery - Social History Smoking Status: Current every day smoker Smokeless Tobacco Status: No Alcohol use: none Drug use: none - Family History Mother Family Member Ethnicity: Non- Living Status: Age at : 70 Cause of : Cirrhosis Hx Family Cardiac Disorders: No Hx Family Respiratory Disorders: No Father Family Member Ethnicity: Non- Living Status: Age at : 84 Cause of : Pancreatic cancer Hx Family Cardiac Disorders: No Hx Family Respiratory Disorders: No Hx Family Cancer: Yes Brother Age: 67 Family Member Ethnicity: Non- Living Status: Still Living Hx Family Cardiac Disorders: Yes (Pacemaker) Hx Family Endocrine Disorder: Yes (DM) Sister Family Member Ethnicity: Non- Living Status: Still Living Hx Family Cardiac Disorders: No Hx Family Respiratory Disorders: No Hx Family Cancer: Yes (dad pancereas) Hx Family GI Disorders: No Hx Family Endocrine Disorder: No Hx Family Neuromuscular Disorders: No Hx Family Neurologic Disorders: No Hx Family HEENT Disorders: No Hx Family Autoimmune Disorders: No Medications and Allergies Albuterol Sulfate [Albuterol Inhaler] 2 puff IH Q4H PRN 08/04/16 [History] Docusate Sodium [Stool Softener] 100 mg PO BID PRN 08/04/16 [History] FLUoxetine HCl [Prozac] 20 mg PO DAILY 08/04/16 [History] Metformin HCl [Glucophage] 1,000 mg PO BID 08/04/16 [History] Nitroglycerin [Nitrostat] 0.4 mg SL Q5M PRN 08/04/16 [History] Omeprazole [PriLOSEC] 20 mg PO BIDAC 08/04/16 [History] Pentoxifylline [TRENtal] 400 mg PO BID 08/04/16 [History] Potassium Chloride [K-Tab ER] 20 meq PO DAILY 08/04/16 [History] Pravastatin Sodium [Pravachol] 40 mg PO HS 08/04/16 [History] Warfarin perPT [Coumadin perPT] 10 mg PO 1800 #30 tablet 01/01/17 [Rx] Budesonide/Formoterol 160/4.5 [Symbicort 160/4.5] 2 puff IH BIDR 08/28/17 [History] Cyclobenzaprine [Flexeril] 10 mg PO TID 08/28/17 [History] Furosemide [Lasix] 80 mg PO BID 08/28/17 [History] Ipratropium Neb [Atrovent Neb] 0.5 mg IH Q8H PRN 09/08/17 [History] Gabapentin [Neurontin] 600 mg PO HS #20 capsule 09/13/17 [Rx] LORazepam [Ativan] 0.5 mg PO DAILY PRN 10 Days #10 tablet 09/13/17 [Rx] Oxycodone HCl/Acetaminophen [Percocet 7.5-325 mg Tablet] 1 each PO Q6H PRN 5 Days #14 tablet 09/13/17 [Rx] traZODone [TraZODone] 50 mg PO HS #0 tablet 09/13/17 [Rx] Metoprolol Tartrate 50 mg PO BID 12/10/17 [History] Levothyroxine Sodium [Levoxyl] 275 mcg PO DAILY 12/12/17 [History] Cephalexin [Keflex] 500 mg PO QID #28 capsule 02/15/18 [Rx] Sulfamethoxazole/Trimeth DS [Bactrim DS] 1 each PO DAILY #10 tablet 02/15/18 [Rx] hydrOXYzine HCl [Hydroxyzine HCl] 25 mg PO Q8H PRN 02/21/18 [History] Allergy/AdvReac Type Severity Reaction Status Date / Time Amoxicillin [From Augmentin] Allergy Palpitation Verified 02/21/18 07:01 s clavulanic acid Allergy Palpitation Verified 02/21/18 07:01 [From Augmentin] s meperidine [From Demerol] Allergy Palpitation Verified 02/21/18 07:01 s sulfamethoxazole Allergy Rash Verified 02/21/18 07:01 [From Bactrim] trimethoprim [From Bactrim] Allergy Rash Verified 02/21/18 07:01 All Systems Review: The remainder of the systems were reviewed and are negative Physical Examination Vital Signs, Last 4 Hours Temp Pulse Resp BP Pulse Ox 02/22/18 08:04 97.7 F 85 18 122/74 94 02/22/18 07:31 16 94 Results 02/22/18 03:03 02/22/18 03:03 Lab Results 02/22/18 02/22/18 02/22/18 03:03 03:03 03:03 WBC 10.4 Hgb 13.0 Hct 40.9 Plt Count 201 INR 5.0 H* Sodium 137 Potassium 4.2 Chloride 103 Carbon Dioxide 26 BUN 14 Creatinine 0.76 Glucose 184 H Calcium 9.0 Consult Discharge Plan - Plan Referrals: Fartun Quinones, FONDANT MACHINE OPERATOR [Primary Care Provider] -
[2018-02-22] MEDS: FLUoxetine 20 MG CAPSULE PO SCH (10:39)
[2018-02-22] MEDS: methylPREDNISolone 125 MG/2 ML VIAL IVP SCH ×2 (10:39→16:14)
[2018-02-22] MEDS: Furosemide 80 MG in 0.9 % Sodium Chloride 50 ML IVPB SCH ×2 (10:40→20:56)
--- NOTE | 2018-02-22 10:40 | Internal Med Progress Note ---
Hospitalist Progress Note - Encounter Date of Encounter: 02/22/18 Time of Encounter: 11:00 - Subjective Interval History: Patient is a 63-year-old male with past medical history significant for multiple admissions for CHF and COPD exacerbations, with O2 dependent COPD, ischemic cardiomyopathy (1 stent), diabetes, peripheral arterial disease and hypothyroid who presents to the ER on 02/21/18 due to shortness of breath. Patient with BNP slightly elevated greater than baseline; patient is obese with a BMI of 59.5. Chest x-ray showed pulmonary vascular congestion. Continuing IV diuresis for CHF exacerbation and cardiology following - Exam Vitals: Temp Pulse Resp BP Pulse Ox 97.7 F 85 18 122/74 94 02/22/18 08:04 02/22/18 08:04 02/22/18 08:04 02/22/18 08:04 02/22/18 08:04 Exam: Gen.: Nonacute distress, alert and oriented 3 ENT: Mucosal membranes moist Respiratory: Lungs are clear to auscultation bilaterally without any wheezing rhonchi or rales Cardiovascular: Normal S1 and S2 regular rate rhythm no murmurs rubs or gallops Abdomen: Soft, nontender and nondistended with positive bowel sounds Extremities: Bilateral lower extremity edema Skin: Normal color - Assessment and Plan (1) Acute exacerbation of CHF (congestive heart failure) Current Visit: No Status: Acute Assessment and Plan: In the ER, patients BNP down to be elevated greater than baseline; patient is obese with a BMI of 59.5. Chest x-ray showed pulmonary vascular congestion. Echocardiogram on 08/2017 showed LVEF of 65-70% with no pulmonary hypertension with normal left ventricular diastolic function and no significant valvular dysfunction. Will continue IV diuresis with Lasix 80 mg twice daily Cardiology consulted and appreciate recommendations (2) COPD exacerbation Current Visit: Yes Status: Acute Assessment and Plan: Will continue scheduled dual nebs and IV Solu-Medrol. Will consult pulmonology and appreciate recommendations (3) CAD (coronary artery disease) Current Visit: No Status: Chronic Assessment and Plan: Patient with history of coronary arterial stent (4) Chronic respiratory failure with hypoxia Current Visit: No Status: Chronic Assessment and Plan: Patient is currently on his baseline O2 requirements at 2 L of nasal cannula. (5) Diabetes mellitus Current Visit: No Status: Chronic Assessment and Plan: Continue home medications (6) Hypothyroidism Current Visit: No Status: Chronic Assessment and Plan: Continue home medications (7) BECK (obstructive sleep apnea) Current Visit: No Status: Chronic Assessment and Plan: Continue NIPPV daily at bedtime (8) Morbid obesity with BMI of 60.0-69.9, adult Current Visit: No Status: Chronic Assessment and Plan: Lifestyle modifications (9) DVT prophylaxis Current Visit: No Status: Acute Assessment and Plan: Patient's Coumadin being held secondary to supratherapeutic INR at 5.0 No active signs of bleeding Continue to monitor - Time Spent with Patient Total time spent is greater than 50% in coordination of care (as documented) at patient's floor/unit and/or counseling patient: Internal Medicine: Result - Labs CBC & Chem 7: 02/22/18 03:03 02/22/18 03:03 Labs: Short CBC 02/22/18 Range/Units 03:03 WBC 10.4 (4.3-11.1) K/mcL Hgb 13.0 (12.9-16.9) g/dL Hct 40.9 (37.5-50.1) % Plt Count 201 (140-400) K/mcL Neutrophils # 8.3 (1.6-8.9) K/mcL BMP 02/22/18 03:03 Sodium 137 Potassium 4.2 Chloride 103 Carbon Dioxide 26 BUN 14 Creatinine 0.76 Glucose 184 H Calcium 9.0 - ABG Interpretation ABG results: PT/INR, D-dimer PT 56.4 Seconds (9.4-12.1) H* 02/22/18 03:03 Consult Discharge Plan - Plan Referrals: Fartun Quinones, WOOD CASKET MAKER [Primary Care Provider] - (1) Acute exacerbation of CHF (congestive heart failure) Qualifiers: Heart failure type: diastolic Qualified Code(s): I50.33 - Acute on chronic diastolic (congestive) heart failure (3) CAD (coronary artery disease) Qualifiers: Coronary Disease-Associated Artery/Lesion type: [place] artery [place] vs. transplanted heart: [place] heart Associated angina: without angina Qualified Code(s): I25.10 - Atherosclerotic heart disease of [place] coronary artery without angina pectoris (5) Diabetes mellitus Qualifiers: Diabetes mellitus type: type 2 Diabetes mellitus nursing home insulin use: with nursing home use Diabetes mellitus complication status: with unspecified complications Qualified Code(s): E11.8 - Type 2 diabetes mellitus with unspecified complications; Z79.4 - retirement (current) use of insulin; Z79.4 - securities consultant (current) use of insulin; Z79.4 - retirement (current) use of insulin; Z79.4 - retirement (current) use of insulin (6) Hypothyroidism Qualifiers: Hypothyroidism type: unspecified Qualified Code(s): E03.9 - Hypothyroidism, unspecified
[2018-02-22] MEDS: Insulin LISPRO 300 UNITS/3 ML VIAL SQ SCH ×3 (14:44→21:00)
[2018-02-22] MEDS ORDERED: Warfarin perPT PO SCH (18:00)
[2018-02-22] MEDS: Gabapentin 300 MG CAPSULE PO SCH (20:57)
[2018-02-22] MEDS: traZODone 50 MG TABLET PO SCH (20:57)
[2018-02-22] MEDS: *HR* OxyCODONE/APAP 7.5/325 TABLET PO PRN (21:10)
[2018-02-22] MEDS: Menthol 9.1 MG LOZENGE PO PRN (22:30)
[2018-02-23] MEDS: methylPREDNISolone 125 MG/2 ML VIAL IVP SCH ×3 (00:29→16:18)
[2018-02-23] MEDS: Ipratropium/Albuterol Neb 3 ML IH SCH ×6 (03:40→23:23)
[2018-02-23 03:47] LABS: INR 3.7; Prothrombin Time 41.9 Seconds (9.4-12.1)
[2018-02-23] MEDS: Budesonide/Formoterol 160/4.5 1 PUFF INH IH SCH ×2 (07:40→19:41)
[2018-02-23] MEDS: FLUoxetine 20 MG CAPSULE PO SCH (09:04)
[2018-02-23] MEDS: Insulin LISPRO 300 UNITS/3 ML VIAL SQ SCH ×4 (09:05→21:36)
[2018-02-23] MEDS: Furosemide 80 MG in 0.9 % Sodium Chloride 50 ML IVPB SCH ×3 (09:13→21:21)
[2018-02-23 11:36] LABS: BUN/Creatinine Ratio 31 (6-26); Blood Urea Nitrogen 25 mg/dL (8-23); Calcium 8.9 mg/dL (8.6-10.3); Carbon Dioxide 26 mEq/L (23-29); Chloride 99 mEq/L (98-107); Glucose 206 mg/dL (70-105); Osmolality,Calculated 298 (280-300); Potassium 4.3 mEq/L (3.5-5.1); Sodium 139 mEq/L (136-145); eGFR For Non-African Americans > 60 (> 60)
[2018-02-23] MEDS ORDERED: *HR* Warfarin 5 MG TABLET PO ONE (18:00)
--- NOTE | 2018-02-23 18:50 | Internal Med Progress Note ---
Hospitalist Progress Note - Encounter Date of Encounter: 02/23/18 Time of Encounter: 18:44 - Subjective Interval History: Pt with multiple complaints. States he has been dissatisfied with most of the medical physicians he has worked with. He denies fever, chills, N/V or diarrhea. He denies chest pain or SOB. - Exam Vitals: Temp Pulse Resp BP Pulse Ox 97.8 F 82 18 125/68 96 02/23/18 16:08 02/23/18 16:08 02/23/18 16:08 02/23/18 16:08 02/23/18 16:08 Exam: Physical exam: Gen.: Nonacute distress, alert and oriented 3. Morbidly obese ENT: Mucosal membranes moist Respiratory: Lungs are clear to auscultation bilaterally without any wheezing rhonchi or rales Cardiovascular: Normal S1 and S2 regular rate rhythm no murmurs rubs or gallops Abdomen: Soft, nontender and nondistended with positive bowel sounds Extremities: Bilateral lower extremity edema Skin: Normal color - Assessment and Plan (1) Acute exacerbation of CHF (congestive heart failure) Current Visit: No Status: Acute Assessment and Plan: In the ER, patients BNP down to be elevated greater than baseline; patient is obese with a BMI of 59.5. Chest x-ray showed pulmonary vascular congestion. Echocardiogram on 08/2017 showed LVEF of 65-70% with no pulmonary hypertension with normal left ventricular diastolic function and no significant valvular dysfunction. Will continue IV diuresis with Lasix 80 mg twice daily. Cardiology consulted and appreciate recommendations. (2) COPD exacerbation Current Visit: Yes Status: Acute Assessment and Plan: Will continue scheduled duo nebs and IV Solu-Medrol. Will hold off on pulmonology consult for now. (3) Chronic respiratory failure with hypoxia Current Visit: No Status: Chronic Assessment and Plan: Patient is currently on his baseline O2 requirements at 2 L of nasal cannula. (4) Morbid obesity with BMI of 60.0-69.9, adult Current Visit: No Status: Chronic Assessment and Plan: Lifestyle modifications (5) CAD (coronary artery disease) Current Visit: No Status: Chronic Assessment and Plan: Pt is on Atorvastatin. Patient with history of coronary arterial stent (6) BECK (obstructive sleep apnea) Current Visit: No Status: Chronic Assessment and Plan: Continue NIPPV daily at bedtime (7) Diabetes mellitus Current Visit: No Status: Chronic Assessment and Plan: On SSI. Continue home medications (8) Hypothyroidism Current Visit: No Status: Chronic Assessment and Plan: Levothyroxine 275 mcg PO daily. DVT Prophylaxis: Heparin - Summary of Assessment and Plan Summary of Assessment and Plan: Patient is a 63-year-old male with past medical history significant for multiple admissions for CHF and COPD exacerbations, with O2 dependent COPD, ischemic cardiomyopathy (1 stent), diabetes, peripheral arterial disease and hypothyroid who presents to the ER on 02/21/18 due to shortness of breath. Patient reports of come into the ER due to waking up in the middle night feeling short of breath. Patient attributes his shortness of breath due to malfunction of NIPPV. In the ER, patients BNP down to be elevated greater than baseline; patient is obese with a BMI of 59.5. Chest x-ray showed pulmonary vascular congestion. Patient was without leukocytosis and afebrile; no infiltrates identified on chest x-ray. Patient was given a dose of IV Solu-Medrol and IV Lasix in addition to dual nebs in the ER. Patient is being admitted for acute on chronic diastolic heart failure with COPD exacerbation. - Time Spent with Patient Total time spent is greater than 50% in coordination of care (as documented) at patient's floor/unit and/or counseling patient: less than 15 minutes Plan of Care Discussed with: patient Internal Medicine: Result - Labs CBC & Chem 7: 02/22/18 03:03 02/23/18 10:58 Labs: BMP 02/23/18 10:58 Sodium 139 Potassium 4.3 Chloride 99 Carbon Dioxide 26 BUN 25 H Creatinine 0.81 Glucose 206 H Calcium 8.9 - ABG Interpretation ABG results: PT/INR, D-dimer PT 41.9 Seconds (9.4-12.1) H 02/23/18 03:11 Consult Discharge Plan - Plan Referrals: Fartun Quinones, [employer] SUPERINTENDENT [Primary Care Provider] - (1) Acute exacerbation of CHF (congestive heart failure) Qualifiers: Heart failure type: diastolic Qualified Code(s): I50.33 - Acute on chronic diastolic (congestive) heart failure (5) CAD (coronary artery disease) Qualifiers: Coronary Disease-Associated Artery/Lesion type: [place] artery [place] vs. transplanted heart: [place] heart Associated angina: without angina Qualified Code(s): I25.10 - Atherosclerotic heart disease of [place] coronary artery without angina pectoris (7) Diabetes mellitus Qualifiers: Diabetes mellitus type: type 2 Diabetes mellitus predatory animal exterminator insulin use: with predatory animal exterminator use Diabetes mellitus complication status: with unspecified complications Qualified Code(s): E11.8 - Type 2 diabetes mellitus with unspecified complications; Z79.4 - intermediate (current) use of insulin; Z79.4 - termite exterminator (current) use of insulin; Z79.4 - intermediate (current) use of insulin; Z79.4 - intermediate (current) use of insulin (8) Hypothyroidism Qualifiers: Hypothyroidism type: unspecified Qualified Code(s): E03.9 - Hypothyroidism, unspecified
--- NOTE | 2018-02-23 20:03 | Event Note ---
<ChazJaime - Last Filed: 02/23/18 20:03> Date of Encounter: 02/23/18 Time of Encounter: 19:15 Alerted by pts. nurse AMANUEL Pittman that the pt. was angry and wanting to leave AMA. Pt. was admitted d/t SOB r/t chronic diastolic HF and exacerbation of COPD. Pt. has significant admissions for CHF and COPD exacerbations. BMI is currently 58.6. BNP 89 on admission CXR showed vascular congestion. Pt. has been afebrile w/o leukocytosis. Solu-Medrol and IVP lasix administered for symptoms. Went to see pt. who was seated on the side of the bed. When I entered the room the pt. immediately said that I had seen him in the past and called him "an oxycodone seeking drug addict." I informed the patient that he was mistaken and that I don't ever speak to my patients that way. He insisted that I had referred to him as a drug-seeker. Again, I refuted the pts. claims. I then asked the pt. why he was angry and wanting to leave AMA. The pt. stated that no one was doing anything for him and he wanted to be transferred to a different facility. He stated that no one had seen him today (Dr. Carlton had seen the pt. today) and that no one knew what they were doing. He stated that he had seen five different "[facility] doctors" who all gave him different opinions. He stated that the nurses were "stupid Mongoloids" who didn't know what they were doing. I instructed the pt. to stop calling the medical physics teacher who were taking care of him derogatory names. I then explained to the pt. that it was my professional opinion that he stay d/t the fact that he required monitoring and that d/t his COPD and CHF w/SOB and hypoxia he was at high risk for if he left AMA. The pt. then stated he knew the risks and was not afraid of . The pt. continued to use derogatory language towards staff. He then asked me what I thought he should do. I informed the pt. I had explained all the risks to him which he confirmed understanding and it was now his decision. AMA paperwork was left with the pts. nurse. <Meghan Carlton - Last Filed: 03/02/18 17:18> Date of Encounter: 03/02/18 Attestation I saw and evaluated the patient. I reviewed the CNPs note, agree and above noted.
[2018-02-23] MEDS: Gabapentin 300 MG CAPSULE PO SCH (21:04)
[2018-02-23] MEDS: traZODone 50 MG TABLET PO SCH (21:04)
[2018-02-23] MEDS: *HR* OxyCODONE/APAP 7.5/325 TABLET PO PRN (21:21)
[2018-02-23] MEDS: Artificial Tears SOLN 15 ML BOTTLE BOTH EYES SCH (21:35)
[2018-02-23] MEDS: Menthol 9.1 MG LOZENGE PO PRN (21:35)
[2018-02-24] MEDS: methylPREDNISolone 125 MG/2 ML VIAL IVP SCH ×3 (00:17→11:19)
[2018-02-24] MEDS: Ipratropium/Albuterol Neb 3 ML IH SCH ×3 (03:57→11:39)
[2018-02-24 05:15] LABS: INR 2.3; Prothrombin Time 25.9 Seconds (9.4-12.1)
[2018-02-24] MEDS: Budesonide/Formoterol 160/4.5 1 PUFF INH IH SCH (08:14)
[2018-02-24] MEDS: Insulin LISPRO 300 UNITS/3 ML VIAL SQ SCH (09:48)
[2018-02-24] MEDS: Furosemide 80 MG in 0.9 % Sodium Chloride 50 ML IVPB SCH ×2 (09:48→11:19)
[2018-02-24] MEDS: FLUoxetine 20 MG CAPSULE PO SCH ×2 (09:49→11:18)
[2018-02-24 11:43] VITALS: BP 131/69
--- NOTE | 2018-02-24 12:15 | Discharge Summary ---
- NOTES TO OUTPATIENT PROVIDER Notes to Outpatient Provider: PCP in 5 to 7 days Orders not resulted at time of discharge: Pending orders 02/25/18 04:00 INR/PT [Prothrombin Time INR] [COAG] AM 0400 02/26/18 04:00 INR/PT [Prothrombin Time INR] [COAG] AM 0400 02/27/18 04:00 INR/PT [Prothrombin Time INR] [COAG] AM 0400 Date of Encounter: 02/24/18 Time of Encounter: 12:12 - Discharge Diagnosis (1) Acute exacerbation of CHF (congestive heart failure) Priority: Primary Status: Acute Assessment and Plan: In the ER, patients BNP down to be elevated greater than baseline; patient is obese with a BMI of 59.5. Chest x-ray showed pulmonary vascular congestion. Echocardiogram on 08/2017 showed LVEF of 65-70% with no pulmonary hypertension with normal left ventricular diastolic function and no significant valvular dysfunction. Cardiology consulted and thinks symptoms more likely related to COPD. Was on IV diuresis with Lasix 80 mg twice daily. Pt is to continue his home dose Lasix as prescribed. Qualifiers: Heart failure type: diastolic Qualified Code(s): I50.33 - Acute on chronic diastolic (congestive) heart failure (2) COPD exacerbation Priority: Primary Status: Acute Assessment and Plan: Was managed with duo nebs and IV Solu-Medrol. Pt continues to smoke and he has been strongly advised to quit. He also has not been using his NIPPV at home for months or years. Will need to follow up out pt with PCP. (3) Chronic respiratory failure with hypoxia Priority: Primary Status: Chronic Assessment and Plan: Patient is currently on his baseline O2 requirements at 2 L of nasal cannula. (4) Morbid obesity with BMI of 60.0-69.9, adult Priority: Secondary Status: Chronic Assessment and Plan: Lifestyle modifications such as diet and exercise recommended (5) CAD (coronary artery disease) Priority: Secondary Status: Chronic Assessment and Plan: Pt is on Atorvastatin and Coumadin. Patient with history of coronary arterial stent Qualifiers: Coronary Disease-Associated Artery/Lesion type: [place] artery [place] vs. transplanted heart: [place] heart Associated angina: without angina Qualified Code(s): I25.10 - Atherosclerotic heart disease of [place] coronary artery witho ut angina pectoris (6) BECK (obstructive sleep apnea) Priority: Secondary Status: Chronic Assessment and Plan: Pt reports that he has not been using his NIPPV. Continue NIPPV daily at bedtime (7) Diabetes mellitus Priority: Secondary Status: Chronic Assessment and Plan: On SSI. Continue home medications Qualifiers: Diabetes mellitus type: type 2 Diabetes mellitus watermaster insulin use: with watermaster use Diabetes mellitus complication status: with unspecified complications Qualified Code(s): E11.8 - Type 2 diabetes mellitus with unspecified complications; Z79.4 - middle or intermediate school principal (current) use of insulin; Z79.4 - middle or intermediate school principal (current) use of insulin; Z79.4 - halfway (current) use of insulin; Z79.4 - halfway (current) use of insulin (8) Hypothyroidism Priority: Secondary Status: Chronic Assessment and Plan: Levothyroxine 275 mcg PO daily. Qualifiers: Hypothyroidism type: unspecified Qualified Code(s): E03.9 - Hypothyroidism, unspecified (9) Medical non-compliance Priority: Secondary Status: Chronic (10) Tobacco abuse Priority: Secondary Status: Chronic Assessment and Plan: Cessation strongly advised. (11) Venous stasis dermatitis of both lower extremities Priority: Secondary Status: Chronic Assessment and Plan: Pt has venous stasis. I have explained to the patient that this is due to chronic illness. He states he had special boots he uses at home States he was given the boots by sports medicine physician and they seemed to help. (12) Left upper extremity swelling Priority: Secondary Status: Acute Assessment and Plan: Venous duplex 02/15/18 neg for DVT. Hospital course: Patient is a 63-year-old male with past medical history significant for multiple admissions for CHF and COPD exacerbations, with O2 dependent COPD, ischemic cardiomyopathy (1 stent), diabetes, peripheral arterial disease and hypothyroid who presents to the ER on 02/21/18 due to shortness of breath. Patient reports of come into the ER due to waking up in the middle night feeling short of breath. Patient attributes his shortness of breath due to malfunction of NIPPV. In the ER, patients BNP down to be elevated greater than baseline; patient is obese with a BMI of 59.5. Chest x-ray showed pulmonary vascular congestion. Patient was without leukocytosis and afebrile; no infiltrates identified on chest x-ray. Patient was given a dose of IV Solu-Medrol and IV Lasix in addition to dual nebs in the ER. Patient is being admitted for acute on chronic diastolic heart failure with COPD exacerbation. Discharge discussed with: patient - Time Spent with Patient Total time spent providing and/or coordinating discharge services: Greater than 30 minutes - Discharge Medications Home Medications: Albuterol Sulfate [Albuterol Inhaler] 2 puff IH Q4H PRN 08/04/16 [History] Docusate Sodium [Stool Softener] 100 mg PO BID PRN 08/04/16 [History] FLUoxetine HCl [Prozac] 20 mg PO DAILY 08/04/16 [History] Metformin HCl [Glucophage] 1,000 mg PO BID 08/04/16 [History] Nitroglycerin [Nitrostat] 0.4 mg SL Q5M PRN 08/04/16 [History] Omeprazole [PriLOSEC] 20 mg PO BIDAC 08/04/16 [History] Pentoxifylline [TRENtal] 400 mg PO BID 08/04/16 [History] Potassium Chloride [K-Tab ER] 20 meq PO DAILY 08/04/16 [History] Pravastatin Sodium [Pravachol] 40 mg PO HS 08/04/16 [History] Warfarin perPT [Coumadin perPT] 10 mg PO 1800 #30 tablet 01/01/17 [Rx] Budesonide/Formoterol 160/4.5 [Symbicort 160/4.5] 2 puff IH BIDR 08/28/17 [History] Cyclobenzaprine [Flexeril] 10 mg PO TID 08/28/17 [History] Furosemide [Lasix] 80 mg PO BID 08/28/17 [History] Ipratropium Neb [Atrovent Neb] 0.5 mg IH Q8H PRN 09/08/17 [History] Gabapentin [Neurontin] 600 mg PO HS #20 capsule 09/13/17 [Rx] LORazepam [Ativan] 0.5 mg PO DAILY PRN 10 Days #10 tablet 09/13/17 [Rx] Oxycodone HCl/Acetaminophen [Percocet 7.5-325 mg Tablet] 1 each PO Q6H PRN 5 Days #14 tablet 09/13/17 [Rx] traZODone [TraZODone] 50 mg PO HS #0 tablet 09/13/17 [Rx] Metoprolol Tartrate 50 mg PO BID 12/10/17 [History] Levothyroxine Sodium [Levoxyl] 275 mcg PO DAILY 12/12/17 [History] Cephalexin [Keflex] 500 mg PO QID #28 capsule 02/15/18 [Rx] Sulfamethoxazole/Trimeth DS [Bactrim DS] 1 each PO DAILY #10 tablet 02/15/18 [Rx] hydrOXYzine HCl [Hydroxyzine HCl] 25 mg PO Q8H PRN 02/21/18 [History] Allergies/Adverse Reactions: Allergy/AdvReac Type Severity Reaction Status Date / Time Amoxicillin [From Augmentin] Allergy Palpitation Verified 02/21/18 07:01 s clavulanic acid Allergy Palpitation Verified 02/21/18 07:01 [From Augmentin] s meperidine [From Demerol] Allergy Palpitation Verified 02/21/18 07:01 s sulfamethoxazole Allergy Rash Verified 02/21/18 07:01 [From Bactrim] trimethoprim [From Bactrim] Allergy Rash Verified 02/21/18 07:01 Date of admission: 02/21/18 18:01 Primary care physician: Fartun Quinones CNP Consults: 02/21/18 18:03 Consult to Cardiology [CONS] Routine Comment: Consulting Provider: [facility] [place] Reason for Consult: Recurrent acute on chronic diastolic heart failure Call Completed: No 02/21/18 18:04 Consult to Pulmonology [CONS] Routine Consulting Provider: [facility] [place] Reason for Consult: Issues with BiPAP for BECK and recurrent COPD exacerbation Call Completed: No 02/23/18 09:49 Consult to Nurse Navigator [CONS] Routine Comment: COPD/CHF Discharging clinician: Meghan Carlton Anticipated date of discharge: 02/24/18 - Constitutional Vitals: Temp Pulse Resp BP Pulse Ox 97.9 F 81 19 131/69 98 02/24/18 11:42 02/24/18 11:42 02/24/18 11:42 02/24/18 11:42 02/24/18 11:42 General appearance: Present: A&O X 3, morbidly obese, no acute distress Exam: . - Head Head exam: Present: atraumatic, normocephalic - Eye Eye exam: Present: PERRL, conjuntiva pink, sclera anicteric Pupils: Present: PERRL - Neck Neck exam general surgery: Present: supple, trachea midline. Absent: lymphadenopathy - Respiratory Respiratory exam: Present: CTAB. Absent: accessory muscle use, rales, rhonchi, wheezes - Cardiovascular Cardiovascular exam: Present: RRR, +S1, +S2. Absent: diastolic murmur, gallop, rubs, systolic murmur - GI/Abdominal GI/Abdominal exam: Present: normal bowel sounds, soft, no peritoneal signs. Absent: distended, tenderness - Extremities Exam Extremities exam: Present: pedal edema, warm, radial pulses palpable and symmet rical. Absent: calf tenderness, cyanotic Additional comments: Venous stasis B/L edema, stasis dermatitis. LUE edema - Neurological Exam Neurological exam: Present: CN II-XII intact, oriented X3, no focal deficits. Absent: pronater drift, facial droop, speech deficit - Skin Skin exam: Present: dry, intact - Patient Status Disposition: Home, Self-Care Condition: Fair Overall status at discharge: patient is back to baseline - Discharge Instructions Follow Up With: Fartun Quinones, SEED CLEANER OPERATOR [Primary Care Provider] - (Office will call patient with an appointment) - Diet and Activity Activity: increase activity as tolerated Diet: diabetic diet, low fat, low cholesterol, low salt diet
[2018-02-24] MEDS ORDERED: *HR* Warfarin 5 MG TABLET PO ONE (18:00)
--- NOTE | 2018-02-27 10:08 | Electrocardiograph Report ---
[address] [place], [place] [address] Test Date: 2018-02-21 Pat Name: Clemente Davila Department: EXAM2 Room: 3B35 Gender: M Business Unit Director: : [id number] Requested By: Kerwin Busby Order Number: [id number] Reading MD: Ray Alexis Measurements Intervals [place] Rate: 60 P: -29 [place]: 149 QRS: -42 QRSD: 115 T: 16 QT: 435 QTc: 435 Interpretive Statements Sinus rhythm Atrial premature complex IVCD Low voltage, precordial leads Poor R wave progression Electronically Signed On 02-27-2018 10:06:34 EDT by Ray Alexis
== END 2018-02-24 14:08 | disposition home or self-care (01) | DRG 190 ==
LOC: EMEROOARM 06:51 → 3BNU 06:51 → SUATTDRO 18:01 → 3BNU 02-22 20:01
PROVIDERS: ADMIT Internal Medicine Nephrology; ATTEND Hospitalist

== ENCOUNTER 2018-08-10 13:25 | Inpatient (IN) ==
--- NOTE | 2018-08-10 14:20 | Emergency Department Note ---
Disposition Clinical Impression: Pulmonary vascular congestion, COPD exacerbation Dyspnea Qualifiers: Dyspnea type: shortness of breath Qualified Code(s): R06.02 - Shortness of breath CHF (congestive heart failure) Qualifiers: Heart failure type: systolic Heart failure chronicity: acute on chronic Qualified Code(s): I50.23 - Acute on chronic systolic (congestive) heart failure Disposition: Admitted As Inpatient Condition: Fair Referrals: Fartun Quinones, PRODUCT RESPONSIBILITY LIAISON [Primary Care Provider] - Forms: ED Satisfaction Letter General Adult HPI - General Chief complaint: ED Shortness of Breath/Dyspnea Stated complaint: EVERT, Swelling Time Seen by Provider: 08/10/18 13:31 Source: patient Limitations: no limitations Nursing Notes Reviewed: Yes Vital Signs Reviewed: Yes - History of Present Illness HPI Narrative: The patient is a 63-year-old male with past medical history including congestive heart failure, COPD on 3 L of oxygen, coronary artery disease, hypertension, atrial fibrillation on Coumadin, presenting with chief complaint of shortness breath for the past 3 days. Patient was recently admitted one month ago for similar complaints and was admitted for CHF and COPD exacerbation. Echocardiogram was obtained on July 09 which showed ejection fraction of 65% with mild diastolic dysfunction and mild pulmonary hypertension. He states he was followed up with [facility]. He states his medications were readjusted. He states his compliance at home. For the past 3 days she complains of progressively worsening shortness of breath. Today he is unable to ambulate or do activities around the house without getting short of breath. He complains of intermittent chest pressure associated with the shortness of breath. He complains of progressively worsening cough that is nonproductive as well. Denies fevers. He has been using his nebulizer treatments every 4 hours at home without improvement. He has not needed to increase his oxygen use. Pain Scale: 8 - Related Data Home Medications Medication Instructions Recorded Confirmed Docusate Sodium [Stool Softener] 100 mg PO BID 08/04/16 08/10/18 Metformin HCl [Glucophage] 1,000 mg PO BID 08/04/16 08/10/18 Nitroglycerin [Nitrostat] 0.4 mg SL Q5M PRN 08/04/16 08/10/18 Omeprazole [PriLOSEC] 20 mg PO DAILY 08/04/16 08/10/18 Pentoxifylline [TRENtal] 400 mg PO BID 08/04/16 08/10/18 Potassium Chloride [K-Tab ER] 20 meq PO DAILY 08/04/16 08/10/18 Budesonide/Formoterol 160/4.5 2 puff IH BIDR 08/28/17 08/10/18 [Symbicort 160/4.5] Cyclobenzaprine [Flexeril] 10 mg PO QAM 08/28/17 08/10/18 Levothyroxine Sodium [Levoxyl] 275 mcg PO DAILY 12/12/17 08/10/18 hydrOXYzine HCl [Hydroxyzine HCl] 25 mg PO BID PRN 02/21/18 08/10/18 Gabapentin [Neurontin] 600 mg PO BID 04/29/18 08/10/18 Oxycodone HCl/Acetaminophen 1 tab PO Q6H PRN 04/29/18 08/10/18 [Percocet 7.5-325 mg Tablet] Aspirin 81 mg PO DAILY 07/05/18 08/10/18 Atorvastatin [Lipitor] 40 mg PO HS 07/05/18 08/10/18 FLUoxetine HCl [Prozac] 20 mg PO QAM 07/05/18 08/10/18 Cyclobenzaprine [Flexeril] 20 mg PO HS 08/10/18 08/10/18 Ipratropium/Albuterol Neb [Duoneb] 3 ml IH Q4HR PRN 08/10/18 08/10/18 LORazepam [Ativan] 0.5 mg PO Q3H PRN 08/10/18 08/10/18 Torsemide [Demadex] 40 mg PO BID 08/10/18 08/10/18 Warfarin [Coumadin] 2 mg PO 1800 08/10/18 08/10/18 Warfarin [Coumadin] 5 mg PO 1800 08/10/18 08/10/18 predniSONE [PredniSONE] 10 mg PO DAILY 08/10/18 08/10/18 Previous Rx's Medication Instructions Recorded traZODone [TraZODone] 50 mg PO HS #0 tablet 09/13/17 Allergies Allergy/AdvReac Type Severity Reaction Status Date / Time Amoxicillin [From Augmentin] Allergy See Verified 08/10/18 14:00 Comments clavulanic acid Allergy See Verified 08/10/18 14:00 [From Augmentin] Comments meperidine [From Demerol] Allergy See Verified 08/10/18 14:00 Comments sulfamethoxazole Allergy Rash Verified 08/10/18 14:00 [From Bactrim] trimethoprim [From Bactrim] Allergy Rash Verified 08/10/18 14:00 baclofen AdvReac See Verified 08/10/18 14:00 Comments All systems ED: reviewed and negative except as stated. Review of Systems: As Per HPI Constitutional: Denies: fever, chills, weakness ENT ED: Denies: congestion Cardiovascular: Reports: chest pain. Denies: palpitations, edema Respiratory: Reports: cough, dyspnea Gastrointestinal: Denies: abdominal pain, nausea Musculoskeletal: Denies: back pain Neurological: Denies: headache Past Medical History - Past Medical History Attestation: Yes The following information was validated with the patient. Source: patient Medical history: Reports: asthma, atrial fibrillation, CHF, COPD, coronary artery disease, diabetes, hyperlipidemia, hypertension, myocardial infarction, p eripheral artery disease, renal disease, thyroid disease, other Surgical history: Reports: angioplasty/stent, orthopedic, other Psychiatric history: Reports: anxiety, depression - Social History Smoking Status: Current every day smoker Smokeless Tobacco Status: No Alcohol use: Reports: none, rarely Drug use: Reports: none Physical Exam - General Limitations: no limitations General appearance: alert - Head Head exam: atraumatic, normocephalic, normal inspection - Eye Eye exam: Present: normal appearance, EOMI - ENT ENT exam: normal exam, normal oropharynx, mucous membranes moist - Neck Neck exam: Present: normal inspection, full ROM, trachea midline - Chest Chest inspection: Present: normal inspection, symmetric chest wall rise - Respiratory Respiratory exam: Present: other (Diminished breath sounds bilaterally and poor air movement. Conversational dyspnea. No wheezing or rhonchi.) - Cardiovascular Cardiovascular exam: Present: regular rate, normal rhythm, normal heart sounds - Abdominal Exam Abdominal exam: Present: soft, Non-Tender. Absent: distention - Extremities Exam Extremities exam: Present: normal capillary refill, other (1+ pitting edema bilateral lower extremities to mid calf with chronic venous stasis changes) - Neurological Exam Neurological exam: Present: alert, oriented X3 - Psychiatric Psychiatric exam: Present: normal affect, normal mood - Skin Skin exam: Present: warm, dry, intact, normal color Course Vital Signs Temperature 97.9 F 08/10/18 14:01 Pulse Rate 97 08/10/18 14:01 Respiratory Rate 18 08/10/18 14:01 Blood Pressure 155/75 08/10/18 14:01 O2 Sat by Pulse Oximetry 98 08/10/18 14:01 Temperature 97.9 F 08/10/18 14:01 Pulse Rate 97 08/10/18 14:01 Respiratory Rate 23 08/10/18 14:48 Blood Pressure 155/75 08/10/18 14:01 O2 Sat by Pulse Oximetry 98 08/10/18 14:48 Oxygen Delivery Oxygen Delivery Room Air Medical Decision Making - MDM Narrative Medical decision making narrative: Patient presenting with progressively worsening dyspnea. He states he is unable to move around or do activities around the house secondary to the shortness of breath. He does complain of chest pressure. He feels like he is drowning in his lungs. DuoNeb treatments are not helping. He does have conversational dyspnea on examination. Poor air movement bilaterally. Patient is oxygenating on 3 L of oxygen which is his home oxygen use. We will obtain CBC, BMP, BNP, troponin, chest x-ray. We will give the patient methylprednisolone, triple DuoNeb treatment and reevaluate. 16:00 Patient's breath sounds are still decreased and he has poor air movement. He is still having conversational dyspnea. Chest x-ray results and imaging reviewed. He does not moderate pulmonary vascular congestion. No evidence of pneumonia. He has no leukocytosis and is not septic. Troponin is less than 0.03. Hospitalist has been paged for admission for COPD exacerbation [place] [facility] BNP was not ran by lab and called down to lab. This is pending now. 16:[address] Bell, who accepts patient. 40mg IV Lasix x1 has been ordered. BNP is still pending. - Medical Records Medical records reviewed: Yes I reviewed the patient's medical records. - Lab Data Lab results reviewed: Yes I reviewed the patient's lab results. Result diagrams: 08/10/18 14:16 08/10/18 14:16 Lab Results 08/10/18 08/10/18 08/10/18 Range/Units 14:16 14:16 14:16 WBC 9.5 (4.3-11.1) K/mcL RBC 4.47 (4.19-5.50) M/mcL Hgb 13.0 (12.9-16.9) g/dL Hct 40.9 (37.5-50.1) % MCV 91.5 (83.0-100.0) fL MCH 29.1 (28.0-33.3) pg MCHC 31.8 (31.6-35.5) g/dL RDW 16.5 H (11.5-14.5) % Plt Count 174 (140-400) K/mcL MPV 10.1 (9.4-12.4) fL Immature Gran % 0.4 (0-4) % Seg Neutrophils % 62.3 % Lymphocytes % 24.8 % Monocytes % 11.9 % Eosinophils % 0.3 % Basophils % 0.3 % Neutrophils # 5.9 (1.6-8.9) K/mcL Lymphocytes # 2.3 (0.6-4.6) K/mcL Monocytes # 1.1 (0.0-1.3) K/mcL Eosinophils # 0.0 (0.0-0.6) K/mcL Basophils # 0.0 (0.0-0.2) K/mcL Sodium 141 (136-145) mEq/L Potassium 4.0 (3.5-5.1) mEq/L Chloride 104 (98-107) mEq/L Carbon Dioxide 25 (23-29) mEq/L BUN 18 (8-23) mg/dL Creatinine 0.86 (0.70-1.30) mg/dL Est GFR ( Amer) > 60 (> 60) Est GFR (Non-Af Amer) > 60 (> 60) BUN/Creatinine Ratio 21 (6-26) Glucose 121 H (70-105) mg/dL Calculated Osmolality 295 (280-300) Lactic Acid 1.4 (0.5-2.2) mmol/L Calcium 9.1 (8.6-10.3) mg/dL Troponin I < 0.03 (< 0.04) ng/mL - Radiology Data Radiology results reviewed: Yes I reviewed the patient's radiology results. Chest X-Ray 08/10/18 13:46 IMPRESSION: Moderate pulmonary vascular congestion. Slight cardiomegaly. D/ / Nicholas aJckson MD / Nicholas Jackson MD Interpreting Provider: Nicholas Jackson MD - EKG Data EKG #1 EKG attestation: Yes I reviewed and interpreted this EKG. EKG results narrative: EKG obtained at 1429 shows sinus rhythm with heart rate 90, [place] interval 127, QRS duration 116, QT 372, QTc 456. No ST elevation or depression. Compared to old EKG from January 2018 shows no acute changes. Attestation Statement - Attestation Attestation: I, Elfego Melchor, examined this patient and my medical decision-making was reviewed with the CO CHAIRMAN/PA/Advanced Practice Nurse/Resident Physician. I agree with the documented findings, disposition and treatment plan as described except to the extent set forth below. 63-year-old male presents emergency Department with concerns of difficulty breathing bilateral lower extremity swelling. Patient states this feels similar to when he has fluid overload. Patient denies fever, chills, nausea, vomiting, diarrhea. Patient is unable to ambulate in the house secondary shortness breath. Patient states that this worsened his usual baseline. Patient had diffuse wheezing on posterior lung exam. Patient was given breathing treatment and he did have some improvement of his symptoms. Patient still felt unsafe to return home to follow-up with primary care provider. He will be admitted to hospitalist for further care and evaluation.
[2018-08-10] MEDS ORDERED: methylPREDNISolone 125 MG/2 ML VIAL IVP ONE (14:23)
[2018-08-10] MEDS ORDERED: Ipratropium/Albuterol Neb 3 ML IH ONE (14:24)
[2018-08-10 14:55] LABS: BUN/Creatinine Ratio 21 (6-26); Blood Urea Nitrogen 18 mg/dL (8-23); Calcium 9.1 mg/dL (8.6-10.3); Carbon Dioxide 25 mEq/L (23-29); Chloride 104 mEq/L (98-107); Glucose 121 mg/dL (70-105); Osmolality,Calculated 295 (280-300); Sodium 141 mEq/L (136-145); Troponin I < 0.03 ng/mL (< 0.04); eGFR For Non-African Americans > 60 (> 60)
[2018-08-10 15:33] LABS: Basophils % 0.3 %; Eosinophils % 0.3 %; Hematocrit 40.9 % (37.5-50.1); Immature Granulocytes % 0.4 % (0-4); Lymphocytes # 2.3 K/mcL (0.6-4.6); Lymphocytes % 24.8 %; Mean Corpuscular HGB Conc 31.8 g/dL (31.6-35.5); Mean Corpuscular Hemoglobin 29.1 pg (28.0-33.3); Mean Corpuscular Volume 91.5 fL (83.0-100.0); Mean Platelet Volume 10.1 fL (9.4-12.4); Monocytes # 1.1 K/mcL (0.0-1.3); Monocytes % 11.9 %; Neutrophils # 5.9 K/mcL (1.6-8.9); Platelet Count 174 K/mcL (140-400); Red Blood Count 4.47 M/mcL (4.19-5.50); Red Cell Distribution Width 16.5 % (11.5-14.5); Segmented Neutrophils % 62.3 %
[2018-08-10] MEDS ORDERED: Furosemide 40 MG/4 ML VIAL IVP ONE (16:25)
[2018-08-10] MEDS ORDERED: Naloxone 0.4 MG/ML INJ IVP PRN (17:20)
[2018-08-10] MEDS ORDERED: Ipratropium/Albuterol Neb 3 ML IH PRN (17:25)
[2018-08-10] MEDS ORDERED: Warfarin perPT PO PRN (18:00)
[2018-08-10 18:12] LABS: INR 1.4; Prothrombin Time 16.1 Seconds (9.4-12.1)
[2018-08-10] MEDS ORDERED: *HR* Warfarin 10 MG TABLET PO ONE (18:30)
--- NOTE | 2018-08-10 18:51 | Internal Med History&Physical ---
Date of Encounter: 08/10/18 Time of Encounter: 18:00 Internal Medicine - H&P: HPI Chief complaint: Shortness of breath, coughing and wheezing of about 1 week duration History of present illness: Mr. Davila is a 63 year old male with pmh of diastolic CHF, COPD on 3L of oxygen, CAD, hypertension, atrial fibrillation on coumadin presenting with complaints of shortness of breath of 1 week duration. Patient notes he was discharged from [facility] about a month ago and hasn't been completely free of his shortness of breath and fluid overload. He was referred to a heart failure center on discharge but says they only offered him hospice. He continues to have shortness of breath, with wheezing and productive cough. He denies any fevers or chills. In the ER, he was given one dose of lasix and steroids and he is being admitted for further management Past Med Surg Social Fam HX - Past Medical History Medical history: asthma, atrial fibrillation, CHF, COPD, coronary artery disease, diabetes, hyperlipidemia, hypertension, myocardial infarction, peripheral artery disease, renal disease, thyroid disease, other Additional medical history: Grave's disease, CKD (unsure what stage). Psychiatric history: anxiety, depression - Past Surgical History Surgical History: angioplasty/stent, orthopedic, other Additional surgical history: one cardiac stent. left hand surgery. Bilateral eye surgery - Social History Smoking Status: Current every day smoker Smokeless Tobacco Status: No Alcohol use: none, rarely Drug use: none - Family History Mother Family Member Ethnicity: Non- Living Status: Hx Family Cardiac Disorders: No Hx Family Respiratory Disorders: No Father Family Member Ethnicity: Non- Living Status: Hx Family Cardiac Disorders: No Hx Family Respiratory Disorders: No Hx Family Cancer: Yes Brother Family Member Ethnicity: Non- Living Status: Still Living Hx Family Cardiac Disorders: Yes (Pacemaker) Hx Family Endocrine Disorder: Yes (DM) Sister Family Member Ethnicity: Non- Living Status: Still Living Hx Family Cardiac Disorders: No Hx Family Respiratory Disorders: No Hx Family Cancer: Yes (dad pancereas) Hx Family GI Disorders: No Hx Family Endocrine Disorder: No Hx Family Neuromuscular Disorders: No Hx Family Neurologic Disorders: No Hx Family HEENT Disorders: No Hx Family Autoimmune Disorders: No Internal Medicine - H&P: Meds Docusate Sodium [Stool Softener] 100 mg PO BID 08/04/16 [History] Metformin HCl [Glucophage] 1,000 mg PO BID 08/04/16 [History] Nitroglycerin [Nitrostat] 0.4 mg SL Q5M PRN 08/04/16 [History] Omeprazole [PriLOSEC] 20 mg PO DAILY 08/04/16 [History] Pentoxifylline [TRENtal] 400 mg PO BID 08/04/16 [History] Potassium Chloride [K-Tab ER] 20 meq PO DAILY 08/04/16 [History] Budesonide/Formoterol 160/4.5 [Symbicort 160/4.5] 2 puff IH BIDR 08/28/17 [History] Cyclobenzaprine [Flexeril] 10 mg PO QAM 08/28/17 [History] traZODone [TraZODone] 50 mg PO HS #0 tablet 09/13/17 [Rx] Levothyroxine Sodium [Levoxyl] 275 mcg PO DAILY 12/12/17 [History] hydrOXYzine HCl [Hydroxyzine HCl] 25 mg PO BID PRN 02/21/18 [History] Gabapentin [Neurontin] 600 mg PO BID 04/29/18 [History] Oxycodone HCl/Acetaminophen [Percocet 7.5-325 mg Tablet] 1 tab PO Q6H PRN 04/29/18 [History] Aspirin 81 mg PO DAILY 07/05/18 [History] Atorvastatin [Lipitor] 40 mg PO HS 07/05/18 [History] FLUoxetine HCl [Prozac] 20 mg PO QAM 07/05/18 [History] Cyclobenzaprine [Flexeril] 20 mg PO HS 08/10/18 [History] Ipratropium/Albuterol Neb [Duoneb] 3 ml IH Q4HR PRN 08/10/18 [History] LORazepam [Ativan] 0.5 mg PO Q3H PRN 08/10/18 [History] Torsemide [Demadex] 40 mg PO BID 08/10/18 [History] Warfarin [Coumadin] 2 mg PO 1800 08/10/18 [History] Warfarin [Coumadin] 5 mg PO 1800 08/10/18 [History] predniSONE [PredniSONE] 10 mg PO DAILY 08/10/18 [History] Allergy/AdvReac Type Severity Reaction Status Date / Time Amoxicillin [From Augmentin] Allergy See Verified 08/10/18 14:00 Comments clavulanic acid Allergy See Verified 08/10/18 14:00 [From Augmentin] Comments meperidine [From Demerol] Allergy See Verified 08/10/18 14:00 Comments sulfamethoxazole Allergy Rash Verified 08/10/18 14:00 [From Bactrim] trimethoprim [From Bactrim] Allergy Rash Verified 08/10/18 14:00 baclofen AdvReac See Verified 08/10/18 14:00 Comments All Systems PM: A 10-system review of systems was performed and is negative for pertinent findings except as documented above in the HPI. - Constitutional Constitutional: no chills, no fever(s), no night sweats - EENT Eyes: no change in vision, no discharge, no pain, no photophobia Ears: no ear discharge, no ear pain, no tinnitus Nose, mouth and throat: no dysphagia, no nasal discharge, no neck pain, no sore throat - Cardiovascular Cardiovascular ROS IM: dyspnea, dyspnea on exertion, orthopnea, no chest pain, no diaphoresis, no lightheadedness, no palpitations, no syncope - Respiratory Respiratory: cough, dyspnea, wheezing, change in phlegm color, no excessive phlegm production - Gastrointestinal Gastrointestinal: no abdominal pain, no diarrhea, no hematemesis, no hematochezia, no melena, no nausea, no vomiting - Musculoskeletal Musculoskeletal ROS IM: no numbness, no tingling - Integumentary Integumentary IM: no rash, no unusual bruising - Neurological Neurological ROS: no confusion, no convulsions, no focal weakness, no numbness, no tingling, no tremor(s) - Hematologic/Lymphatic Hematologic/Lymphatic: no easy bruising - Constitutional Vitals: Temp Pulse Resp BP Pulse Ox 97.9 F 88 18 105/66 94 08/10/18 14:01 08/10/18 17:44 08/10/18 17:44 08/10/18 17:44 08/10/18 17:44 Exam: NAD - Head Head exam: Present: atraumatic, normocephalic - Eye Eye exam: Present: PERRL, conjuntiva pink, sclera anicteric Pupils: Present: PERRL - Neck Neck exam general surgery: Present: supple, trachea midline. Absent: lymphadenopathy - Respiratory Respiratory exam: Present: decreased breath sounds, wheezes. Absent: accessory muscle use, rales, rhonchi Additional comments: poor air entry bilaterally - Cardiovascular Cardiovascular exam: Present: RRR, +S1, +S2. Absent: diastolic murmur, gallop, rubs, systolic murmur - GI/Abdominal GI/Abdominal exam: Present: normal bowel sounds, soft, no peritoneal signs. Absent: distended, tenderness - Extremities Exam Extremities exam: Present: pedal edema, warm, radial pulses palpable and symmetrical. Absent: calf tenderness, cyanotic - Neurological Exam Neurological exam: Present: CN II-XII intact, oriented X3, no focal deficits. Absent: pronater drift, facial droop, speech deficit - Skin Skin exam: Present: dry, intact Internal Med - H&P Results - Labs CBC & Chem 7: 08/10/18 14:16 08/10/18 14:16 Labs: Short CBC 08/10/18 Range/Units 14:16 WBC 9.5 (4.3-11.1) K/mcL Hgb 13.0 (12.9-16.9) g/dL Hct 40.9 (37.5-50.1) % Plt Count 174 (140-400) K/mcL Neutrophils # 5.9 (1.6-8.9) K/mcL BMP 08/10/18 14:16 Sodium 141 Potassium 4.0 Chloride 104 Carbon Dioxide 25 BUN 18 Creatinine 0.86 Glucose 121 H Calcium 9.1 Cardiac Enzymes 08/10/18 Range/Units 14:16 Troponin I < 0.03 (< 0.04) ng/mL - Impressions ITS Impressions Chest X-Ray 08/10/18 13:46 IMPRESSION: Moderate pulmonary vascular congestion. Slight cardiomegaly. D/ / Nicholas Jackson MD / Nicholas Jackson MD Interpreting Provider: Nicholas Jackson MD - Assessment and Plan (1) Acute exacerbation of CHF (congestive heart failure) Current Visit: Yes Status: Acute Assessment and plan: Acute worsening of chronic diastolic CHF Will start on diuresis with IV lasix and metolazone Monitor ins and outs Qualifiers: Heart failure type: diastolic Qualified Code(s): I50.33 - Acute on chronic diastolic (congestive) heart failure (2) COPD with acute exacerbation Current Visit: Yes Status: Acute Assessment and plan: Will place on BIPAP,nebs, steroids and antibiotics (3) Atrial fibrillation Current Visit: Yes Status: Acute Assessment and plan: rate controlled. continue coumadin Qualifiers: Atrial fibrillation type: paroxysmal Qualified Code(s): I48.0 - Paroxysmal atrial fibrillation (4) Morbid obesity with BMI of 60.0-69.9, adult Current Visit: Yes Status: Chronic Assessment and plan: Diet and exercise (5) DVT prophylaxis Current Visit: Yes Status: Acute Assessment and plan: On warfarin - Time Spent With Patient Total time spent is greater than 50% in coordination of care (as documented) at patient's floor/unit and/or counseling patient:
[2018-08-10] MEDS: Ipratropium/Albuterol Neb 3 ML IH SCH ×2 (19:38→23:41)
[2018-08-10] MEDS ORDERED: *HR* Warfarin 5 MG TABLET PO ONE (19:45)
[2018-08-10] MEDS: metOLazone 5 MG TABLET PO SCH ×2 (20:08→22:34)
[2018-08-10] MEDS: Budesonide/Formoterol 160/4.5 1 PUFF INH IH SCH (21:26)
[2018-08-10] MEDS: Furosemide 40 MG/4 ML VIAL IVP SCH (22:41)
[2018-08-10] MEDS: traZODone 50 MG TABLET PO SCH (22:50)
[2018-08-10] MEDS: *HR* OxyCODONE/APAP 7.5/325 TABLET PO PRN (22:50)
[2018-08-10] MEDS: Gabapentin 300 MG CAPSULE PO SCH (22:51)
[2018-08-11] MEDS: methylPREDNISolone 125 MG/2 ML VIAL IVP SCH ×4 (00:57→23:03)
[2018-08-11] MEDS ORDERED: Dextrose Gel 15 GM/37.5 ML TUBE PO PRN ×2 (02:52)
[2018-08-11] MEDS ORDERED: *HR* Dextrose 50 % in Water (Syg) 50 ML SYRINGE IVP PRN (02:52)
[2018-08-11] MEDS ORDERED: D5% in Water 1,000 ML IVC PRN (02:52)
[2018-08-11] MEDS: Insulin LISPRO 300 UNITS/3 ML VIAL SQ SCH ×5 (03:28→20:45)
[2018-08-11] MEDS: Ipratropium/Albuterol Neb 3 ML IH SCH ×6 (03:44→23:22)
[2018-08-11 07:27] LABS: INR 1.2
[2018-08-11] MEDS: Budesonide/Formoterol 160/4.5 1 PUFF INH IH SCH ×2 (07:34→20:05)
[2018-08-11 07:44] LABS: BUN/Creatinine Ratio 23 (6-26); Blood Urea Nitrogen 18 mg/dL (8-23); Calcium 9.1 mg/dL (8.6-10.3); Carbon Dioxide 25 mEq/L (23-29); Chloride 103 mEq/L (98-107); Glucose 186 mg/dL (70-105); Osmolality,Calculated 295 (280-300); Phosphorous 2.9 mg/dL (2.7-4.5); Potassium 4.5 mEq/L (3.5-5.1); Sodium 139 mEq/L (136-145); eGFR For Non-African Americans > 60 (> 60)
--- NOTE | 2018-08-11 08:48 | Internal Med Progress Note ---
Hospitalist Progress Note - Encounter Date of Encounter: 08/11/18 Time of Encounter: 08:40 - Subjective Interval History: No acute events overnight - Exam Vitals: Temp Pulse Resp BP Pulse Ox 97.8 F 87 19 145/88 97 08/11/18 05:29 08/11/18 05:29 08/11/18 07:35 08/11/18 05:29 08/11/18 07:35 Exam: General appearance: Present: A&O X 3, no acute distress Head exam: Present: normocephalic Respiratory exam: Diffuse wheezing bilaterally Cardiovascular exam: Present: RRR, +S1, +S2. Absent: diastolic murmur, gallop, rubs, systolic murmur GI/Abdominal exam: Soft, NT, ND, +BS Extremities exam: Positive pedal edema Neurological exam: Present: alert, oriented X3, no focal deficits. Absent: altered - Assessment and Plan (1) Acute exacerbation of CHF (congestive heart failure) Current Visit: Yes Status: Acute Assessment and Plan: Acute worsening of chronic diastolic CHF Will start on diuresis with IV lasix and metolazone Monitor ins and outs. Peripheral edema improved this am. Daily weights, strict ins and outs (2) COPD with acute exacerbation Current Visit: Yes Status: Acute Assessment and Plan: Will place on BIPAP,nebs, steroids and antibiotics (3) Atrial fibrillation Current Visit: Yes Status: Acute Assessment and Plan: rate controlled. continue coumadin (4) Morbid obesity with BMI of 60.0-69.9, adult Current Visit: Yes Status: Chronic Assessment and Plan: Diet and exercise (5) DVT prophylaxis Current Visit: Yes Status: Acute Assessment and Plan: On warfarin - Time Spent with Patient Total time spent is greater than 50% in coordination of care (as documented) at patient's floor/unit and/or counseling patient: Internal Medicine: Result - Labs CBC & Chem 7: 08/11/18 08:43 08/11/18 06:44 Labs: Short CBC 08/10/18 Range/Units 14:16 WBC 9.5 (4.3-11.1) K/mcL Hgb 13.0 (12.9-16.9) g/dL Hct 40.9 (37.5-50.1) % Plt Count 174 (140-400) K/mcL Neutrophils # 5.9 (1.6-8.9) K/mcL BMP 08/10/18 08/11/18 14:16 06:44 Sodium 141 139 Potassium 4.0 4.5 Chloride 104 103 Carbon Dioxide 25 25 BUN 18 18 Creatinine 0.86 0.78 Glucose 121 H 186 H Calcium 9.1 9.1 Cardiac Enzymes 08/10/18 Range/Units 14:16 Troponin I < 0.03 (< 0.04) ng/mL - ABG Interpretation ABG results: PT/INR, D-dimer PT 14.0 Seconds (9.4-12.1) H 08/11/18 06:44 - Impressions Impressions Chest X-Ray 08/10/18 13:46 IMPRESSION: Moderate pulmonary vascular congestion. Slight cardiomegaly. D/ / Nicholas Jackson MD / Nicholas Jackson MD Interpreting Provider: Nicholas Jackson MD Consult Discharge Plan - Plan Referrals: Fartun Quinones, SPOR[employer] BOOK BOARD ATTENDANT [Primary Care Provider] - (1) Acute exacerbation of CHF (congestive heart failure) Qualifiers: Heart failure type: diastolic Qualified Code(s): I50.33 - Acute on chronic diastolic (congestive) heart failure (3) Atrial fibrillation Qualifiers: Atrial fibrillation type: paroxysmal Qualified Code(s): I48.0 - Paroxysmal atrial fibrillation
[2018-08-11 09:09] LABS: Basophils % 0.2 %; Hemoglobin 11.9 g/dL (12.9-16.9); Immature Granulocytes % 0.6 % (0-4); Lymphocytes # 1.1 K/mcL (0.6-4.6); Lymphocytes % 16.6 %; Mean Corpuscular HGB Conc 31.3 g/dL (31.6-35.5); Mean Corpuscular Hemoglobin 28.9 pg (28.0-33.3); Mean Corpuscular Volume 92.2 fL (83.0-100.0); Mean Platelet Volume 9.9 fL (9.4-12.4); Monocytes # 0.3 K/mcL (0.0-1.3); Neutrophils # 5.2 K/mcL (1.6-8.9); Platelet Count 165 K/mcL (140-400); Red Blood Count 4.12 M/mcL (4.19-5.50); Red Cell Distribution Width 15.8 % (11.5-14.5); Segmented Neutrophils % 78.6 %
[2018-08-11] MEDS: metOLazone 5 MG TABLET PO SCH (09:33)
[2018-08-11] MEDS: FLUoxetine 20 MG CAPSULE PO SCH (09:33)
[2018-08-11] MEDS: Gabapentin 300 MG CAPSULE PO SCH ×2 (09:33→20:40)
[2018-08-11] MEDS: Aspirin 81 MG TAB.CHEW PO SCH (09:33)
[2018-08-11] MEDS: Furosemide 40 MG/4 ML VIAL IVP SCH ×2 (09:34→17:04)
--- NOTE | 2018-08-11 09:45 | Electrocardiograph Report ---
[address] [place], [place] [address] Test Date: 2018-08-10 Pat Name: Clemente Davila Department: [id number] Room: 3A36 Gender: M Leaf Stripper: : 1955 Requested By: Elfego Melchor Order Number: [id number] Reading MD: Tauqeria Mccormick Measurements Intervals [place] Rate: 90 P: 16 [place]: 127 QRS: -34 QRSD: 116 T: 76 QT: 372 QTc: 456 Interpretive Statements Sinus rhythm Nonspecific intraventricular conduction delay Probable anteroseptal infarct, old Borderline ST depression, lateral leads Electronically Signed On 08-11-2018 9:43:43 EDT by Taqueria Mccormick
[2018-08-11] MEDS ORDERED: *HR* LORazepam 0.5 MG TABLET PO PRN (14:11)
[2018-08-11] MEDS ORDERED: hydrOXYzine pamoate 25 MG CAPSULE PO PRN (14:14)
[2018-08-11] MEDS ORDERED: *HR* Warfarin 10 MG TABLET PO ONE (18:00)
[2018-08-11] MEDS: traZODone 50 MG TABLET PO SCH (20:40)
[2018-08-11] MEDS: *HR* OxyCODONE/APAP 7.5/325 TABLET PO PRN (20:46)
[2018-08-12] MEDS: Ipratropium/Albuterol Neb 3 ML IH SCH ×5 (03:36→19:55)
[2018-08-12 06:32] LABS: INR 1.8; Prothrombin Time 20.5 Seconds (9.4-12.1)
[2018-08-12] MEDS: Budesonide/Formoterol 160/4.5 1 PUFF INH IH SCH ×2 (07:31→19:54)
[2018-08-12] MEDS: Furosemide 40 MG/4 ML VIAL IVP SCH ×2 (09:20→17:26)
[2018-08-12] MEDS: methylPREDNISolone 125 MG/2 ML VIAL IVP SCH ×2 (09:20→17:26)
[2018-08-12] MEDS: FLUoxetine 20 MG CAPSULE PO SCH (09:22)
[2018-08-12] MEDS: Gabapentin 300 MG CAPSULE PO SCH ×2 (09:22→21:30)
[2018-08-12] MEDS: Aspirin 81 MG TAB.CHEW PO SCH (09:22)
[2018-08-12] MEDS: Insulin LISPRO 300 UNITS/3 ML VIAL SQ SCH ×4 (09:22→21:31)
[2018-08-12] MEDS: metOLazone 5 MG TABLET PO SCH (09:22)
--- NOTE | 2018-08-12 10:02 | Internal Med Progress Note ---
Hospitalist Progress Note - Encounter Date of Encounter: 08/12/18 Time of Encounter: 09:59 - Subjective Interval History: Patient was and examined. Remains on about 2 L nasal cannula oxygen which is chronic home needs. Patient is being treated for COPD exacerbation and CHF exacerbation. He was hospitalized about a month ago for similar reasons. Was enrolled in hospice at some point apparently and has taken himself out of it - Exam Vitals: Temp Pulse Resp BP Pulse Ox 97.4 F L 87 16 110/68 97 08/12/18 07:32 08/12/18 07:32 08/12/18 07:32 08/12/18 07:32 08/12/18 07:32 Exam: GEN: NAD CVS: RRR. S1, S2, No m/r/g RESP: Diminished with scattered wheezes. Bibasilar crackles. ABD: Soft, NT, ND, +BS EXT: No edema. 2+ DP. No rashes NEURO: Nonfocal - Assessment and Plan (1) COPD with acute exacerbation Current Visit: Yes Status: Acute Assessment and Plan: Patient is on chronic prednisone. Continue current IV steroids as is in no changes will be made as the patient significantly wheezy still. Continue nebs. (2) Acute exacerbation of CHF (congestive heart failure) Current Visit: Yes Status: Acute Assessment and Plan: Continue Lasix and Zaroxolyn for now. Monitor I&O's. Says he has a dry weight of 370 pounds (3) Atrial fibrillation Current Visit: Yes Status: Acute Assessment and Plan: rate controlled. continue coumadin (4) Morbid obesity with BMI of 60.0-69.9, adult Current Visit: Yes Status: Chronic Assessment and Plan: Diet and exercise (5) DVT prophylaxis Current Visit: Yes Status: Acute Assessment and Plan: On warfarin - Time Spent with Patient Total time spent is greater than 50% in coordination of care (as documented) at patient's floor/unit and/or counseling patient: Internal Medicine: Result - Labs CBC & Chem 7: 08/11/18 08:43 08/11/18 06:44 - ABG Interpretation ABG results: PT/INR, D-dimer PT 20.5 Seconds (9.4-12.1) H 08/12/18 05:58 Consult Discharge Plan - Plan Referrals: Fartun Quinones, GEOGRAPHY HEAD [Primary Care Provider] - (2) Acute exacerbation of CHF (congestive heart failure) Qualifiers: Heart failure type: diastolic Qualified Code(s): I50.33 - Acute on chronic diastolic (congestive) heart failure (3) Atrial fibrillation Qualifiers: Atrial fibrillation type: paroxysmal Qualified Code(s): I48.0 - Paroxysmal atrial fibrillation
[2018-08-12] MEDS ORDERED: Insulin DETEMIR 100 UNIT/ML X5UNITS SQ ONE (14:54)
[2018-08-12] MEDS ORDERED: *HR* Warfarin 2 MG TABLET PO ONE (18:00)
[2018-08-12] MEDS ORDERED: *HR* Warfarin 5 MG TABLET PO ONE (18:00)
[2018-08-12] MEDS: traZODone 50 MG TABLET PO SCH (21:30)
[2018-08-12] MEDS: *HR* OxyCODONE/APAP 7.5/325 TABLET PO PRN (21:41)
[2018-08-13] MEDS: methylPREDNISolone 125 MG/2 ML VIAL IVP SCH ×3 (00:01→21:41)
[2018-08-13] MEDS: Ipratropium/Albuterol Neb 3 ML IH SCH ×7 (00:23→23:52)
[2018-08-13 05:19] LABS: Basophils % 0.2 %; Hematocrit 37.6 % (37.5-50.1); Immature Granulocytes % 1.5 % (0-4); Lymphocytes # 1.3 K/mcL (0.6-4.6); Lymphocytes % 11.4 %; Mean Corpuscular HGB Conc 31.9 g/dL (31.6-35.5); Mean Corpuscular Volume 90.8 fL (83.0-100.0); Mean Platelet Volume 9.9 fL (9.4-12.4); Monocytes # 0.4 K/mcL (0.0-1.3); Monocytes % 3.8 %; Neutrophils # 9.6 K/mcL (1.6-8.9); Platelet Count 173 K/mcL (140-400); Red Blood Count 4.14 M/mcL (4.19-5.50); Red Cell Distribution Width 15.2 % (11.5-14.5); Segmented Neutrophils % 83.1 %
[2018-08-13 05:26] LABS: INR 2.4; Prothrombin Time 27.5 Seconds (9.4-12.1)
[2018-08-13 05:31] LABS: BUN/Creatinine Ratio 38 (6-26); Blood Urea Nitrogen 35 mg/dL (8-23); Carbon Dioxide 33 mEq/L (23-29); Chloride 92 mEq/L (98-107); Glucose 222 mg/dL (70-105); Magnesium 1.8 mg/dL (1.6-2.6); Osmolality,Calculated 293 (280-300); Potassium 3.5 mEq/L (3.5-5.1); Sodium 134 mEq/L (136-145); eGFR For Non-African Americans > 60 (> 60)
[2018-08-13] MEDS: Budesonide/Formoterol 160/4.5 1 PUFF INH IH SCH ×2 (07:42→20:56)
[2018-08-13] MEDS: Insulin LISPRO 300 UNITS/3 ML VIAL SQ SCH ×4 (09:22→21:40)
[2018-08-13] MEDS: FLUoxetine 20 MG CAPSULE PO SCH (09:25)
[2018-08-13] MEDS: Furosemide 40 MG/4 ML VIAL IVP SCH ×2 (09:25→18:03)
[2018-08-13] MEDS: Gabapentin 300 MG CAPSULE PO SCH ×2 (09:25→21:41)
[2018-08-13] MEDS: metOLazone 5 MG TABLET PO SCH (09:25)
[2018-08-13] MEDS: Aspirin 81 MG TAB.CHEW PO SCH (09:26)
--- NOTE | 2018-08-13 09:53 | Internal Med Progress Note ---
Hospitalist Progress Note - Encounter Date of Encounter: 08/13/18 Time of Encounter: 09:51 - Subjective Interval History: Patient was and examined. Feels better. Diuresed well. Remains on about 2 L nasal cannula oxygen which is chronic home needs. Patient is being treated for COPD exacerbation and CHF exacerbation. He was hospitalized about a month ago for similar reasons. Was enrolled in hospice at some point apparently and has taken himself out of it - Exam Vitals: Temp Pulse Resp BP Pulse Ox 97.5 F L 91 18 142/71 99 08/13/18 07:59 08/13/18 07:59 08/13/18 07:59 08/13/18 07:59 08/13/18 07:59 Exam: GEN: NAD CVS: RRR. S1, S2, No m/r/g RESP: Diminished with scattered wheezes. Bibasilar crackles. ABD: Soft, NT, ND, +BS EXT: 1+ edema. 2+ DP. No rashes NEURO: Nonfocal - Assessment and Plan (1) COPD with acute exacerbation Current Visit: Yes Status: Acute Assessment and Plan: Patient is on chronic prednisone. Cut IV steroids to Q12 from Q8hrs. Continue nebs. (2) Acute exacerbation of CHF (congestive heart failure) Current Visit: Yes Status: Acute Assessment and Plan: Continue current Lasix and Zaroxolyn for now. Monitor I&O's. Says he has a dry weight of 370 pounds (3) Atrial fibrillation Current Visit: Yes Status: Acute Assessment and Plan: rate controlled. continue coumadin. INR now therapeutic. I question his compliance. (4) Morbid obesity with BMI of 60.0-69.9, adult Current Visit: Yes Status: Chronic Assessment and Plan: Diet and exercise (5) DVT prophylaxis Current Visit: Yes Status: Acute Assessment and Plan: On warfarin - Time Spent with Patient Total time spent is greater than 50% in coordination of care (as documented) at patient's floor/unit and/or counseling patient: Internal Medicine: Result - Labs CBC & Chem 7: 08/13/18 04:50 08/13/18 04:50 Labs: Short CBC 08/13/18 Range/Units 04:50 WBC 11.5 H D (4.3-11.1) K/mcL Hgb 12.0 L (12.9-16.9) g/dL Hct 37.6 (37.5-50.1) % Plt Count 173 (140-400) K/mcL Neutrophils # 9.6 H (1.6-8.9) K/mcL BMP 08/13/18 04:50 Sodium 134 L Potassium 3.5 Chloride 92 L Carbon Dioxide 33 H BUN 35 H Creatinine 0.92 Glucose 222 H Calcium 9.0 - ABG Interpretation ABG results: PT/INR, D-dimer PT 27.5 Seconds (9.4-12.1) H 08/13/18 04:50 Consult Discharge Plan - Plan Referrals: aFrtun Quinones, AIRCRAFT ENGINE ASSEMBLER [Primary Care Provider] - (2) Acute exacerbation of CHF (congestive heart failure) Qualifiers: Heart failure type: diastolic Qualified Code(s): I50.33 - Acute on chronic diastolic (congestive) heart failure (3) Atrial fibrillation Qualifiers: Atrial fibrillation type: paroxysmal Qualified Code(s): I48.0 - Paroxysmal atrial fibrillation
[2018-08-13] MEDS ORDERED: *HR* Warfarin 4 MG TABLET PO ONE (18:00)
[2018-08-13] MEDS: *HR* OxyCODONE/APAP 7.5/325 TABLET PO PRN (21:41)
[2018-08-13] MEDS: traZODone 50 MG TABLET PO SCH (21:41)
[2018-08-14 03:59] LABS: Basophils % 0.2 %; Hematocrit 38.8 % (37.5-50.1); Hemoglobin 12.7 g/dL (12.9-16.9); Immature Granulocytes % 1.5 % (0-4); Lymphocytes # 1.7 K/mcL (0.6-4.6); Lymphocytes % 15.5 %; Mean Corpuscular HGB Conc 32.7 g/dL (31.6-35.5); Mean Corpuscular Hemoglobin 29.4 pg (28.0-33.3); Mean Corpuscular Volume 89.8 fL (83.0-100.0); Mean Platelet Volume 9.5 fL (9.4-12.4); Monocytes # 0.7 K/mcL (0.0-1.3); Monocytes % 6.3 %; Neutrophils # 8.4 K/mcL (1.6-8.9); Platelet Count 169 K/mcL (140-400); Red Blood Count 4.32 M/mcL (4.19-5.50); Red Cell Distribution Width 15.1 % (11.5-14.5); Segmented Neutrophils % 76.5 %
[2018-08-14] MEDS: Ipratropium/Albuterol Neb 3 ML IH SCH ×6 (04:00→23:47)
[2018-08-14 04:12] LABS: INR 2.5; Prothrombin Time 27.9 Seconds (9.4-12.1)
[2018-08-14 04:22] LABS: BUN/Creatinine Ratio 37 (6-26); Blood Urea Nitrogen 41 mg/dL (8-23); Carbon Dioxide 35 mEq/L (23-29); Chloride 89 mEq/L (98-107); Glucose 209 mg/dL (70-105); Magnesium 1.9 mg/dL (1.6-2.6); Osmolality,Calculated 296 (280-300); Potassium 3.4 mEq/L (3.5-5.1); Sodium 135 mEq/L (136-145); eGFR For Non-African Americans > 60 (> 60)
[2018-08-14] MEDS: Budesonide/Formoterol 160/4.5 1 PUFF INH IH SCH ×2 (07:31→20:01)
[2018-08-14] MEDS: Gabapentin 300 MG CAPSULE PO SCH ×2 (09:23→20:23)
[2018-08-14] MEDS: metOLazone 5 MG TABLET PO SCH (09:23)
[2018-08-14] MEDS: Furosemide 40 MG/4 ML VIAL IVP SCH (09:24)
[2018-08-14] MEDS: Aspirin 81 MG TAB.CHEW PO SCH (09:24)
[2018-08-14] MEDS: methylPREDNISolone 125 MG/2 ML VIAL IVP SCH (09:24)
[2018-08-14] MEDS: FLUoxetine 20 MG CAPSULE PO SCH (09:24)
[2018-08-14] MEDS: Insulin LISPRO 300 UNITS/3 ML VIAL SQ SCH ×4 (09:25→20:42)
--- NOTE | 2018-08-14 10:02 | Internal Med Progress Note ---
Hospitalist Progress Note - Encounter Date of Encounter: 08/14/18 Time of Encounter: 16:12 - Subjective Interval History: Patient is still short of breath. Decreasing pedal edema. Review of the lab with normal white count, normal creatinine but slight trending up. Low potassium. Denies fever chills nausea vomiting headache dizziness chest pain abdominal pain urinary bowel complaint. Patient is still has shortness of breath that has been chronic but slight better - Exam Vitals: Temp Pulse Resp BP Pulse Ox 97.5 F L 77 18 127/76 93 08/14/18 07:25 08/14/18 07:25 08/14/18 07:25 08/14/18 07:25 08/14/18 08:15 Exam: GEN: NAD CVS: RRR. S1, S2, No m/r/g RESP: Diminished with scattered wheezes. Bibasilar crackles. ABD: Soft, NT, ND, +BS EXT: 1+ edema. 2+ DP. No rashes NEURO: Nonfocal - Assessment and Plan (1) COPD with acute exacerbation Current Visit: Yes Status: Acute Assessment and Plan: Patient is on chronic prednisone. Will stop IV steroid today and his start prednisone 60 mg daily. Continue nebs. (2) Acute exacerbation of CHF (congestive heart failure) Current Visit: Yes Status: Acute Assessment and Plan: Initially a started Lasix and Zaroxolyn . Stopped Zaroxolyn. Patient was on Lasix 40 mg IV twice a day but I will decrease does Lasix for 40 milligram IV daily and continue to monitor I&O's. Says he has a dry weight of 370 pounds (3) Morbid obesity with BMI of 60.0-69.9, adult Current Visit: Yes Status: Chronic Assessment and Plan: Diet and exercise (4) Atrial fibrillation Current Visit: Yes Status: Acute Assessment and Plan: rate controlled. continue coumadin. INR now therapeutic. I question his compliance. (5) DVT prophylaxis Current Visit: Yes Status: Acute Assessment and Plan: On warfarin. Therapeutic INR (6) Goals of care, counseling/discussion Current Visit: Yes Status: Acute Assessment and Plan: Concern for noncompliance especially for oxygen. Patient has multiple admission in different hospitals in past several months. He also has been on home hospice. Plan to involve social media director to make appropriate discharge plan to prevent frequent admission especially not having appropriate supply from oxygen due to financial problem while weaning down the Lasix and his steroid. Will plan to discharge patient in 1-2 days or after the weekend to get help from social media director. Patient will need oxygen evaluation test once a stable and back to baseline before discharging Palliative care was also consulted to discuss about the further goal of care including hospice - Time Spent with Patient Total time spent is greater than 50% in coordination of care (as documented) at patient's floor/unit and/or counseling patient: 25 - 35 minutes Plan of Care Discussed with: patient Internal Medicine: Result - Labs CBC & Chem 7: 08/14/18 03:49 08/14/18 03:49 Labs: Short CBC 08/14/18 Range/Units 03:49 WBC 11.0 (4.3-11.1) K/mcL Hgb 12.7 L (12.9-16.9) g/dL Hct 38.8 (37.5-50.1) % Plt Count 169 (140-400) K/mcL Neutrophils # 8.4 (1.6-8.9) K/mcL BMP 08/14/18 03:49 Sodium 135 L Potassium 3.4 L Chloride 89 L Carbon Dioxide 35 H BUN 41 H Creatinine 1.11 Glucose 209 H Calcium 9.0 - ABG Interpretation ABG results: PT/INR, D-dimer PT 27.9 Seconds (9.4-12.1) H 08/14/18 03:49 Consult Discharge Plan - Plan Referrals: Fartun Quinones, GEOLOGICAL MANAGER [Primary Care Provider] - (2) Acute exacerbation of CHF (congestive heart failure) Qualifiers: Heart failure type: diastolic Qualified Code(s): I50.33 - Acute on chronic diastolic (congestive) heart failure (4) Atrial fibrillation Qualifiers: Atrial fibrillation type: paroxysmal Qualified Code(s): I48.0 - Paroxysmal atrial fibrillation
--- NOTE | 2018-08-14 16:48 | Palliative - Consult Note ---
Date of Encounter: 08/14/18 Time of Encounter: 14:00 - Assessment and Plan (1) Dyspnea Current Visit: Yes Status: Acute Assessment and plan: Patient states he has episodes of anxiety and his dyspnea usually worsens at that time recommend Ativan BID and prn for anxiety. agree with percocet prn for pain, oxycodone is also beneficial for dyspnea. Qualifiers: Dyspnea type: shortness of breath Qualified Code(s): R06.02 - Shortness of breath; R06.00 - Dyspnea, unspecified; R06.01 - Orthopnea (2) COPD with acute exacerbation Current Visit: Yes Status: Acute Assessment and plan: patient is feeling better. management per primary team. (3) Goals of care, counseling/discussion Current Visit: Yes Status: Acute Assessment and plan: Discussed current medical condition, trajectory of illness, prognosis and treatment options. Patient has a general understanding that his health is not good. However, he is still wanting to be treated as long as an option is offered. He stated he has an appointment with cardiology outpatient next week to be evaluated for pacemaker placement. Discussed code status, patient wants to be a DNRCCA, and he needs to think about DNI. Explained hospice and hospice services. patient made aware that he is hospice candidate, but if he chooses hospice, then he will forgo any further disease modifying treatment, including pacemaker. Patient would like to meet with the drywaller first and make a decision based on his options. Palliative care will follow up on Friday for further GOC discussion. (4) Palliative care encounter Current Visit: Yes Status: Acute (5) Acute exacerbation of CHF (congestive heart failure) Current Visit: Yes Status: Acute Qualifiers: Heart failure type: diastolic Qualified Code(s): I50.33 - Acute on chronic diastolic (congestive) heart failure (6) Morbid obesity Current Visit: No Status: Chronic Palliative-CN HPI - Data of Consult Patient: new to practice Consult date: 08/14/18 Requesting Physician: Nadir Bell Primary Care Provider: Fartun Quinones CNP - Consult Narrative Palliative Care/Comfort Measures: Palliative care Reason for consult: hospice evaluation, goals of care History of present illness: Mr. Davila is a 63 year old male Mr. Davila is a 63 year old male with pmh of diastolic CHF, COPD on 3L of oxygen, CAD, hypertension, atrial fibrillation on coumadin presenting with complaints of shortness of breath of 1 week duration. Patient notes he was discharged from [facility] about a month ago and hasn 't been completely free of his shortness of breath and fluid overload. He was referred to a heart failure center on discharge, and from the center he was referred to [facility] hospice. Patient states he enrolled on hospice, but they did not come to his house yet, and did not show up when he asked for help. Palliative care consult for hospice evaluation. Patient was AAOx3, speaking in full sentences, he states to be feeling better, but still short of breath. He denies chest pain, nausea, vomiting, cough, changes in bowel habits. CC: Nadir Bell - Time Spent with Patient Time: Total time spent is greater than 50% in coordination of care (as documented) at patient's floor/unit and/or counseling patient: Time with patient: 30 minutes Past Med Surg Social Fam HX - Past Medical History Medical history: asthma, atrial fibrillation, CHF, COPD, coronary artery disease, diabetes, hyperlipidemia, hypertension, myocardial infarction, peripheral artery disease, renal disease, thyroid disease, other Additional medical history: Grave's disease, CKD (unsure what stage). Psychiatric history: anxiety, depression - Past Surgical History Surgical History: angioplasty/stent, orthopedic, other Additional surgical history: one cardiac stent. left hand surgery. Bilateral eye surgery - Social History Smoking Status: Current every day smoker Smokeless Tobacco Status: No Alcohol use: none, rarely Drug use: none - Family History Mother Family Member Ethnicity: Non- Living Status: Hx Family Cardiac Disorders: No Hx Family Respiratory Disorders: No Father Family Member Ethnicity: Non- Living Status: Hx Family Cardiac Disorders: No Hx Family Respiratory Disorders: No Hx Family Cancer: Yes Brother Family Member Ethnicity: Non- Living Status: Still Living Hx Family Cardiac Disorders: Yes (Pacemaker) Hx Family Endocrine Disorder: Yes (DM) Sister Family Member Ethnicity: Non- Living Status: Still Living Hx Family Cardiac Disorders: No Hx Family Respiratory Disorders: No Hx Family Cancer: Yes (dad pancereas) Hx Family GI Disorders: No Hx Family Endocrine Disorder: No Hx Family Neuromuscular Disorders: No Hx Family Neurologic Disorders: No Hx Family HEENT Disorders: No Hx Family Autoimmune Disorders: No Medications and Allergies Docusate Sodium [Stool Softener] 100 mg PO BID 08/04/16 [History] Metformin HCl [Glucophage] 1,000 mg PO BID 08/04/16 [History] Nitroglycerin [Nitrostat] 0.4 mg SL Q5M PRN 08/04/16 [History] Omeprazole [PriLOSEC] 20 mg PO DAILY 08/04/16 [History] Pentoxifylline [TRENtal] 400 mg PO BID 08/04/16 [History] Potassium Chloride [K-Tab ER] 20 meq PO DAILY 08/04/16 [History] Budesonide/Formoterol 160/4.5 [Symbicort 160/4.5] 2 puff IH BIDR 08/28/17 [History] Cyclobenzaprine [Flexeril] 10 mg PO QAM 08/28/17 [History] traZODone [TraZODone] 50 mg PO HS #0 tablet 09/13/17 [Rx] Levothyroxine Sodium [Levoxyl] 275 mcg PO DAILY 12/12/17 [History] hydrOXYzine HCl [Hydroxyzine HCl] 25 mg PO BID PRN 02/21/18 [History] Gabapentin [Neurontin] 600 mg PO BID 04/29/18 [History] Oxycodone HCl/Acetaminophen [Percocet 7.5-325 mg Tablet] 1 tab PO Q6H PRN 04/29/18 [History] Aspirin 81 mg PO DAILY 07/05/18 [History] Atorvastatin [Lipitor] 40 mg PO HS 07/05/18 [History] FLUoxetine HCl [Prozac] 20 mg PO QAM 07/05/18 [History] Cyclobenzaprine [Flexeril] 20 mg PO HS 08/10/18 [History] Ipratropium/Albuterol Neb [Duoneb] 3 ml IH Q4HR PRN 08/10/18 [History] LORazepam [Ativan] 0.5 mg PO Q3H PRN 08/10/18 [History] Torsemide [Demadex] 40 mg PO BID 08/10/18 [History] Warfarin [Coumadin] 2 mg PO 1800 08/10/18 [History] Warfarin [Coumadin] 5 mg PO 1800 08/10/18 [History] predniSONE [PredniSONE] 10 mg PO DAILY 08/10/18 [History] Allergy/AdvReac Type Severity Reaction Status Date / Time Amoxicillin [From Augmentin] Allergy See Verified 08/10/18 14:00 Comments clavulanic acid Allergy See Verified 08/10/18 14:00 [From Augmentin] Comments meperidine [From Demerol] Allergy See Verified 08/10/18 14:00 Comments sulfamethoxazole Allergy Rash Verified 08/10/18 14:00 [From Bactrim] trimethoprim [From Bactrim] Allergy Rash Verified 08/10/18 14:00 baclofen AdvReac See Verified 08/10/18 14:00 Comments - Constitutional Constitutional ROS PAL: fatigue - EENT Additional comments: negative - Cardiovascular Cardiovascular ROS: dyspnea on exertion, edema, no chest pain, no chest pain at rest - Respiratory Respiratory: dyspnea, dyspnea on exertion, no wheezing - Gastrointestinal Gastrointestinal: no abdominal pain, no change in bowel habits - Genitourinary Genitourinary ROS male: no dysuria - Musculoskeletal Musculoskeletal ROS IM: no arthralgias - Integumentary ROS Integumentary: no bleeding lesions - Neurological Neurological ROS: no abnormal movements, no dizziness, no focal weakness, no numbness, no sensory deficit - Psychiatric Psychiatric general PM: no depression - Endocrine Endocrine IM: as per [facility] Palliative Care-Exam - Constitutional Vitals: Temp Pulse Resp BP Pulse Ox 98.0 F 104 18 135/81 96 08/14/18 14:18 08/14/18 14:18 08/14/18 14:18 08/14/18 14:18 08/14/18 14:18 General appearance: Present: cooperative, morbidly obese - Head Head Exam: Present: atraumatic - Eye Eye exam: Present: EOMI - ENT ENT exam: Present: mucous membranes moist, normal exam - Neck Neck exam: Present: normal inspection - Respiratory Respiratory exam: Present: decreased breath sounds, wheezes - Cardiovascular Cardiovascular exam: Present: RRR, +S1, +S2. Absent: diastolic murmur, systolic murmur - GI/Abdominal Exam GI/Abdominal exam: Present: soft. Absent: tenderness additional comments: obese - Extremities Exam Extremities exam: Present: full ROM, pedal edema - Neurological Exam Neurological exam: Present: oriented X3 Additional comments: non focal - Psychiatric Psychiatric exam: Present: normal affect, normal mood - Skin Skin exam: Absent: cyanosis, diaphoretic Internal Medicine - CN: Reslt - Labs CBC & Chem 7: 08/14/18 03:49 08/14/18 03:49 Labs: Short CBC 08/14/18 Range/Units 03:49 WBC 11.0 (4.3-11.1) K/mcL Hgb 12.7 L (12.9-16.9) g/dL Hct 38.8 (37.5-50.1) % Plt Count 169 (140-400) K/mcL Neutrophils # 8.4 (1.6-8.9) K/mcL BMP 08/14/18 03:49 Sodium 135 L Potassium 3.4 L Chloride 89 L Carbon Dioxide 35 H BUN 41 H Creatinine 1.11 Glucose 209 H Calcium 9.0 - ABG Interpretation ABG results: PT/INR, D-dimer PT 27.9 Seconds (9.4-12.1) H 08/14/18 03:49 Consult Discharge Plan - Plan Referrals: Fartun Quinones, GRINDER MACHINE SETTER [Primary Care Provider] - Palliative Quality Palliative Quality: Screen for Code Status: Yes, Screen for Goals of Care: Yes, Screen for Pain: Yes, If Pain Regimen Started, Initiate Bowel Regimen: NA, Screen for Nausea/Vomitting: Yes Code Status: 08/10/18 17:20 Resuscitation Status: Active [RES] Routine Comment: Resuscitation Status: Full Code Palliative Scale - Palliative Performance Scale How ambulatory is this patient?: Reduced What is patient's level of activity and evidence of disease?: Unable normal job/work, Significant disease How much self-care assistance does patient require?: Occasional assistance necessary How much oral intake does the patient have?: Normal What is this patient's level of consciousness?: Full Palliative Performance Score: 60 %
[2018-08-14] MEDS ORDERED: *HR* Warfarin 5 MG TABLET PO ONE (18:00)
[2018-08-14] MEDS ORDERED: *HR* Warfarin 1 MG TABLET PO ONE (18:00)
[2018-08-14] MEDS: *HR* LORazepam 0.5 MG TABLET PO SCH (20:23)
[2018-08-14] MEDS: traZODone 50 MG TABLET PO SCH (20:23)
[2018-08-14] MEDS: *HR* OxyCODONE/APAP 7.5/325 TABLET PO PRN (20:24)
[2018-08-15] MEDS: Ipratropium/Albuterol Neb 3 ML IH SCH ×6 (03:58→23:48)
[2018-08-15 05:22] LABS: INR 1.9
[2018-08-15] MEDS: Budesonide/Formoterol 160/4.5 1 PUFF INH IH SCH ×2 (07:35→20:16)
[2018-08-15] MEDS ORDERED: Furosemide 40 MG/4 ML VIAL IVP SCH (09:00)
[2018-08-15] MEDS: Insulin LISPRO 300 UNITS/3 ML VIAL SQ SCH ×4 (09:05→21:30)
[2018-08-15] MEDS: FLUoxetine 20 MG CAPSULE PO SCH (09:07)
[2018-08-15] MEDS: *HR* LORazepam 0.5 MG TABLET PO SCH ×2 (09:07→21:25)
[2018-08-15] MEDS: metOLazone 5 MG TABLET PO SCH (09:07)
[2018-08-15] MEDS: Gabapentin 300 MG CAPSULE PO SCH ×2 (09:07→21:26)
[2018-08-15] MEDS: Aspirin 81 MG TAB.CHEW PO SCH (09:07)
[2018-08-15] MEDS: predniSONE 20 MG TABLET PO SCH (09:07)
[2018-08-15] MEDS: *HR* OxyCODONE/APAP 7.5/325 TABLET PO PRN ×2 (09:49→21:25)
--- NOTE | 2018-08-15 10:49 | Palliative Progress Note ---
Date of Encounter: 08/15/18 Time of Encounter: 09:20 - Assessment and plan (1) Sciatic nerve pain Current Visit: Yes Status: Acute Assessment and plan: Patient reports continued nerve pain, reports Neurontin helping. Confirmed or dered same as home dosage. Qualifiers: Laterality: left Qualified Code(s): M54.32 - Sciatica, left side (2) CHF (congestive heart failure) Current Visit: No Status: Chronic Qualifiers: Qualified Code(s): I50.33 - Acute on chronic diastolic (congestive) heart failure (3) COPD (chronic obstructive pulmonary disease) Current Visit: No Status: Chronic Qualifiers: COPD type: unspecified COPD Qualified Code(s): J44.9 - Chronic obstructive pulmonary disease, unspecified (4) Morbid obesity with BMI of 60.0-69.9, adult Current Visit: Yes Status: Chronic (5) Dyspnea Current Visit: Yes Status: Acute Assessment and plan: Patient reports increased dyspnea this hospital stay than baseline at home. Reports cares for self independently at home. Reports Proper regimen of Lasix, Ativan and Percocet help him to control dyspnea. Has Ativan scheduled and PRN. Oxycodone in Percocet also helpful with dyspnea. Continue Oxycodone and Ativan. Qualifiers: Dyspnea type: shortness of breath Qualified Code(s): R06.02 - Shortness of breath; R06.00 - Dyspnea, unspecified; R06.01 - Orthopnea (6) Goals of care, counseling/discussion Current Visit: Yes Status: Acute Assessment and plan: Confirmed CODE STATUS as DNRCCA. Changed order in computer. Patient remains ok with intubation, if necessary. Patient explains after yesterday's conversations, he would like to follow up with cardiology for evaluation of pacemaker. Does not want hospice at this time. Would not want same hospice company again, if decide for hospice. Is knowledgeable he is elligible and will re-enroll when he is ready. Desires continued treatment for CHF and COPD at this time. (7) Palliative care encounter Current Visit: Yes Status: Acute - Time Spent With Patient Total time spent is greater than 50% in coordination of care (as documented) at patient's floor/unit and/or counseling patient: 15 minutes - Subjective Interval history: Patient sitting up at bedside, completing breakfast upon arrival for assessment. Patient alert and oriented times 3. Patient continues to report increased dyspn ea and sciatic nerve pain. Reports anxiety is controlled. Patient gave review of yesterday's encounters including telephone call from Cardiology recommending pacemaker and visit from Palliative care team regarding options for hospice. Patient reports previously had [facility] and has been admitted to three different hospitals over the course of the last month. Patient is taking home dose of Neurontin, Ativan, and Percocet. - Constitutional Vitals: Abnormal lab results Hgb 12.7 g/dL (12.9-16.9) L 08/14/18 03:49 RDW 15.1 % (11.5-14.5) H 08/14/18 03:49 PT 21.0 Seconds (9.4-12.1) H 08/15/18 04:56 Sodium 135 mEq/L (136-145) L 08/14/18 03:49 Potassium 3.4 mEq/L (3.5-5.1) L 08/14/18 03:49 Chloride 89 mEq/L (98-107) L 08/14/18 03:49 Carbon Dioxide 35 mEq/L (23-29) H 08/14/18 03:49 BUN 41 mg/dL (8-23) H 08/14/18 03:49 BUN/Creatinine Ratio 37 (6-26) H 08/14/18 03:49 Glucose 209 mg/dL (70-105) H 08/14/18 03:49 POC Glucose 292 mg/dL (70-99) H 08/14/18 16:34 General appearance: Present: cooperative, morbidly obese, no acute distress - Head Head exam: Present: atraumatic, normal inspection - Eye Eye exam: Present: normal appearance. Absent: periorbital swelling, periorbital tenderness Pupils: Present: normal accommodation - ENT ENT exam: Present: mucous membranes moist, normal external ear exam - Neck Neck exam: Present: full ROM, normal inspection - Respiratory Respiratory exam: Present: accessory muscle use, rhonchi, wheezes. Absent: decreased breath sounds, tachypnea - Cardiovascular Cardiovascular exam: Present: +S1, +S2 - GI/Abdominal GI/Abdominal exam: Present: distended, normal bowel sounds, soft. Absent: tenderness - Rectal Rectal exam: Present: deferred - Extremities Exam Extremities exam: Present: normal inspection, pedal edema - Back Exam Back exam: Present: normal inspection - Neurological Exam Neurological exam: Present: alert, oriented X3, strengths equal and symetr throughout. Absent: altered - Psychiatric Psychiatric exam: Present: normal affect, normal mood - Skin Skin exam: Present: dry, intact, normal color, warm Palliative Quality Palliative Quality: Screen for Code Status: Yes, Screen for Goals of Care: Yes, Screen for Pain: Yes, If Pain Regimen Started, Initiate Bowel Regimen: NA, Screen for Nausea/Vomitting: Yes Code Status: 08/10/18 17:20 Resuscitation Status: Active [RES] Routine Comment: Resuscitation Status: Full Code 08/15/18 10:23 DNR [Resuscitation Status: Active] [RES] Routine Comment: Resuscitation Status: DNR-Comfort Care-Arrest - Labs CBC & Chem 7: 08/14/18 03:49 08/14/18 03:49 Labs: Laboratory Results - last 24 hr 08/14/18 08/14/18 08/15/18 12:02 16:34 04:56 PT 21.0 H INR 1.9 POC Glucose 172 H 292 H - ABG Interpretation ABG results: PT/INR, D-dimer PT 21.0 Seconds (9.4-12.1) H 08/15/18 04:56 Palliative Scale - Palliative Performance Scale How ambulatory is this patient?: Reduced What is patient's level of activity and evidence of disease?: Unable normal job/work, Significant disease How much self-care assistance does patient require?: Occasional assistance necessary How much oral intake does the patient have?: Normal What is this patient's level of consciousness?: Full Palliative Performance Score: 60 % Consult Discharge Plan - Plan Referrals: Fartun Quinones, CAKE MAKER [Primary Care Provider] -
--- NOTE | 2018-08-15 11:15 | Internal Med Progress Note ---
Hospitalist Progress Note - Encounter Date of Encounter: 08/15/18 Time of Encounter: 11:09 - Subjective Interval History: Complained of slight worsening of shortness of breath. He also did not have much urine output after reducing frequency of IV Lasix once instead of twice. INR 1.9 Denies fever chills nausea vomiting headache dizziness chest pain abdominal pain urinary or bowel complaint - Exam Vitals: Temp Pulse Resp BP Pulse Ox 97.6 F 74 16 112/70 97 08/15/18 10:15 08/15/18 10:15 08/15/18 10:15 08/15/18 10:15 08/15/18 10:15 Exam: GEN: NAD, oxygen by nasal cannula CVS: RRR. S1, S2, No m/r/g RESP: Diminished with scattered wheezes. Bibasilar crackles. ABD: Soft, NT, ND, +BS EXT: 1/2+ edema. 2+ DP. No rashes NEURO: No focal neurological deficit. - Assessment and Plan (1) Acute exacerbation of CHF (congestive heart failure) Current Visit: Yes Status: Acute Assessment and Plan: Initially a started Lasix and Zaroxolyn . Stopped Zaroxolyn. Patient was on Lasix 40 mg IV twice a day decrease yesterday 40 mg daily. Patient has slight worsening of shortness of breath and also decreased urine output. Therefore I increased Lasix 40 mg twice daily for now and will continue to monitor. He may need a bit more IV diuresis. monitor I&O's. Says he has a dry weight of 370 pounds Last echo June 2018-EF 65%, mild LVEDD, grossly right ventricle widely dilated, mild pulmonary hypertension with RVSP 41 mmHg Will consult cardiology if needed Will keep patient over the weekend for optimum diuresis by IV Lasix and plan to discharge possibly on Friday. Patient will require home oxygen evaluation before discharge (2) COPD with acute exacerbation Current Visit: Yes Status: Acute Assessment and Plan: Patient is on chronic prednisone. Initially patient was on IV steroid and changed to prednisone 60 mg daily on 2018. Continue nebs, spirometry, oxygen supplementation. Patient follows pulmonologists on OPD basis. (3) Morbid obesity with BMI of 60.0-69.9, adult Current Visit: Yes Status: Chronic Assessment and Plan: Diet and exercise (4) Atrial fibrillation Current Visit: Yes Status: Acute Assessment and Plan: rate controlled. continue coumadin. INR 1.9. Pharmacy to dose Coumadin (5) Goals of care, counseling/discussion Current Visit: Yes Status: Acute Assessment and Plan: Concern for noncompliance especially for oxygen. Patient has multiple admission in past several months. Palliative care team was consulted as patient wanted to have further discussion about hospice option. Patient has been on transient home hospice care and took himself out. Review of the palliative care team note-patient is DNR CCA, okay with intubation if necessary. Patient supposed to follow cardiology Dr. Elfego Laguerre for the evaluation of pacemaker. Therefore he does not want hospice at this time but would consider after discussing with news operations manager. On board bog worker to make appropriate discharge plan to prevent frequent readmission especially not having appropriate supply from oxygen due to financial problem while weaning down the Lasix and his steroid. (6) DVT prophylaxis Current Visit: Yes Status: Acute Assessment and Plan: On warfarin. Therapeutic INR - Time Spent with Patient Total time spent is greater than 50% in coordination of care (as documented) at patient's floor/unit and/or counseling patient: 25 - 35 minutes Plan of Care Discussed with: patient Internal Medicine: Result - Labs CBC & Chem 7: 08/14/18 03:49 08/14/18 03:49 - ABG Interpretation ABG results: PT/INR, D-dimer PT 21.0 Seconds (9.4-12.1) H 08/15/18 04:56 Consult Discharge Plan - Plan Referrals: Fartun Quinones, SENIOR MECHANICAL ESTIMATOR [Primary Care Provider] - (1) Acute exacerbation of CHF (congestive heart failure) Qualifiers: Heart failure type: diastolic Qualified Code(s): I50.33 - Acute on chronic diastolic (congestive) heart failure (4) Atrial fibrillation Qualifiers: Atrial fibrillation type: paroxysmal Qualified Code(s): I48.0 - Paroxysmal atrial fibrillation
[2018-08-15 12:48] LABS: Basophils % 0.2 %; Hemoglobin 13.3 g/dL (12.9-16.9); Immature Granulocytes % 1.7 % (0-4); Lymphocytes # 1.6 K/mcL (0.6-4.6); Lymphocytes % 12.7 %; Mean Corpuscular HGB Conc 32.4 g/dL (31.6-35.5); Mean Corpuscular Hemoglobin 29.2 pg (28.0-33.3); Mean Corpuscular Volume 89.9 fL (83.0-100.0); Mean Platelet Volume 10.1 fL (9.4-12.4); Monocytes # 1.3 K/mcL (0.0-1.3); Monocytes % 10.5 %; Neutrophils # 9.6 K/mcL (1.6-8.9); Platelet Count 194 K/mcL (140-400); Red Blood Count 4.56 M/mcL (4.19-5.50); Segmented Neutrophils % 74.9 %
[2018-08-15] MEDS: Furosemide 40 MG/4 ML VIAL IVP SCH (17:07)
[2018-08-15] MEDS ORDERED: *HR* Warfarin 1 MG TABLET PO ONE (18:00)
[2018-08-15] MEDS ORDERED: *HR* Warfarin 5 MG TABLET PO ONE (18:00)
[2018-08-15] MEDS: traZODone 50 MG TABLET PO SCH (21:25)
[2018-08-16] MEDS: Ipratropium/Albuterol Neb 3 ML IH SCH ×6 (04:46→23:17)
[2018-08-16 07:44] LABS: INR 1.9; Prothrombin Time 21.9 Seconds (9.4-12.1)
[2018-08-16 07:53] LABS: BUN/Creatinine Ratio 51 (6-26); Blood Urea Nitrogen 42 mg/dL (8-23); Calcium 8.9 mg/dL (8.6-10.3); Carbon Dioxide 35 mEq/L (23-29); Chloride 89 mEq/L (98-107); Glucose 156 mg/dL (70-105); Osmolality,Calculated 294 (280-300); Potassium 2.6 mEq/L (3.5-5.1); Sodium 135 mEq/L (136-145); eGFR For Non-African Americans > 60 (> 60)
[2018-08-16] MEDS: Furosemide 40 MG/4 ML VIAL IVP SCH ×2 (08:01→17:05)
[2018-08-16] MEDS: Insulin LISPRO 300 UNITS/3 ML VIAL SQ SCH ×4 (08:01→21:43)
[2018-08-16] MEDS: predniSONE 20 MG TABLET PO SCH (08:02)
[2018-08-16] MEDS: Gabapentin 300 MG CAPSULE PO SCH ×2 (08:02→21:32)
[2018-08-16] MEDS: Aspirin 81 MG TAB.CHEW PO SCH (08:02)
[2018-08-16] MEDS: metOLazone 5 MG TABLET PO SCH (08:02)
[2018-08-16] MEDS: *HR* LORazepam 0.5 MG TABLET PO SCH ×2 (08:02→21:32)
[2018-08-16] MEDS: FLUoxetine 20 MG CAPSULE PO SCH (08:03)
[2018-08-16] MEDS: *HR* OxyCODONE/APAP 7.5/325 TABLET PO PRN ×2 (08:08→21:38)
[2018-08-16] MEDS: Budesonide/Formoterol 160/4.5 1 PUFF INH IH SCH ×2 (08:25→20:10)
--- NOTE | 2018-08-16 08:54 | Cardiology Consult Note ---
Date of Encounter: 08/16/18 Time of Encounter: 08:50 Assessment and Plan (1) Afib Current Visit: No Status: Chronic Suspect his overall presentation of dyspnea and edema is related to morbid obesity, COPD and likely obesity hypoventilation syndrome along with pretibial myxedema from his history of Graves disease / venous insufficiency. He has a normal EF by TTE and numerous normal BNPs in [employer]. He has permanent pretibial myxedema from Graves disease causing his edema. Given his 3L COPD and morbid obesity with secondary pulmonary hypertension the finding of pulmonary vascular congestion on a supine single view CXR is not surprising and does not necessarily correspond to CHF. He does have a mildly dilated RV (without RV failure yet) by echo. Pulmonary hypertension was mild by TTE, but thought to be underestimated. From both my opinion as well as his primary freelance writer, he does not have a diagnosis of CHF - diastolic or otherwise, though that diagnosis keeps being applied to him. No indication for pacemaker, nor was it being considered by his primary freelance writer. It was actually a question of whether he is having any more PAF to help guide his rate control medications and a referral to EP for possible loop recorder. This is nonurgent and does not need to be done in as an inpatient; however, if he is still here Friday, Dr. Laguerre may be able to place it. Continue rate control and chronic AC INR 2-3 with coumadin. Qualifiers: Atrial fibrillation type: paroxysmal Qualified Code(s): I48.0 - Paroxysmal atrial fibrillation (2) COPD (chronic obstructive pulmonary disease) Current Visit: No Status: Chronic per primary team, likely exacerbating his morbid obesity (blue bloater) Qualifiers: COPD type: unspecified COPD Qualified Code(s): J44.9 - Chronic obstructive pulmonary disease, unspecified (3) Morbid obesity Current Visit: No Status: Chronic difficult to reverse at this point Discussion w patient/family: The assessment and plan as outlined above was discussed with the patient and/or family members who expressed understanding and agreement. All questions were answered. Thank you for involving us in the care of your patient. Please call with any questions. History of Present Illness Consult date: 08/16/18 Consult reason: ?pacemaker Chief complaint: dyspnea History of present illness: Mr. Davila is a 63 year old male with morbid obesity BMI 55.5 severe end staged 3L COPD likely obesity hypoventilation syndrome history of PAF sp ablation per history with no known recent EKGs showing recurrent atrial fibrillation a recorded diagnosis of dCHF (highly unlikely) as he has had numerous normal BNP on previous admissions and TTE shows normal EF history of pretibial myxedema from his Grave's disease / hypothyroidism pulmonary hypertension, secondary to COPD/obesity likely causing prominent pulmonary vasculature particularly on a 1 view (?supine) CXR Reviewed his outpatient cardiology notes by Dr. Rizo and my own previous inpatient consultation. The "pacemaker" is actually consideration for a loop recorder to evaluate if he has any more PAF to help guide his rate control therapies. He has dyspnea on exertion and states he has panic attacks which worsen his respiratory status. He also has chronic edema from his pretibial mxyedema from Graves disease. Past Med Surg Social Fam HX - Past Medical History Medical history: asthma, atrial fibrillation, CHF, COPD, coronary artery disease, diabetes, hyperlipidemia, hypertension, myocardial infarction, peripheral artery disease, renal disease, thyroid disease, other Additional medical history: Grave's disease, CKD (unsure what stage). Psychiatric history: anxiety, depression - Past Surgical History Surgical History: angioplasty/stent, orthopedic, other Additional surgical history: one cardiac stent. left hand surgery. Bilateral eye surgery - Social History Smoking Status: Current every day smoker Smokeless Tobacco Status: No Alcohol use: none, rarely Drug use: none - Family History Mother Family Member Ethnicity: Non- Living Status: Hx Family Cardiac Disorders: No Hx Family Respiratory Disorders: No Father Family Member Ethnicity: Non- Living Status: Hx Family Cardiac Disorders: No Hx Family Respiratory Disorders: No Hx Family Cancer: Yes Brother Family Member Ethnicity: Non- Living Status: Still Living Hx Family Cardiac Disorders: Yes (Pacemaker) Hx Family Endocrine Disorder: Yes (DM) Sister Family Member Ethnicity: Non- Living Status: Still Living Hx Family Cardiac Disorders: No Hx Family Respiratory Disorders: No Hx Family Cancer: Yes (dad pancereas) Hx Family GI Disorders: No Hx Family Endocrine Disorder: No Hx Family Neuromuscular Disorders: No Hx Family Neurologic Disorders: No Hx Family HEENT Disorders: No Hx Family Autoimmune Disorders: No Medications and Allergies Docusate Sodium [Stool Softener] 100 mg PO BID 08/04/16 [History] Metformin HCl [Glucophage] 1,000 mg PO BID 08/04/16 [History] Nitroglycerin [Nitrostat] 0.4 mg SL Q5M PRN 08/04/16 [History] Omeprazole [PriLOSEC] 20 mg PO DAILY 08/04/16 [History] Pentoxifylline [TRENtal] 400 mg PO BID 08/04/16 [History] Potassium Chloride [K-Tab ER] 20 meq PO DAILY 08/04/16 [History] Budesonide/Formoterol 160/4.5 [Symbicort 160/4.5] 2 puff IH BIDR 08/28/17 [History] Cyclobenzaprine [Flexeril] 10 mg PO QAM 08/28/17 [History] traZODone [TraZODone] 50 mg PO HS #0 tablet 09/13/17 [Rx] Levothyroxine Sodium [Levoxyl] 275 mcg PO DAILY 12/12/17 [History] hydrOXYzine HCl [Hydroxyzine HCl] 25 mg PO BID PRN 02/21/18 [History] Gabapentin [Neurontin] 600 mg PO BID 04/29/18 [History] Oxycodone HCl/Acetaminophen [Percocet 7.5-325 mg Tablet] 1 tab PO Q6H PRN [History] Aspirin 81 mg PO DAILY 07/05/18 [History] Atorvastatin [Lipitor] 40 mg PO HS 07/05/18 [History] FLUoxetine HCl [Prozac] 20 mg PO QAM 07/05/18 [History] Cyclobenzaprine [Flexeril] 20 mg PO HS 08/10/18 [History] Ipratropium/Albuterol Neb [Duoneb] 3 ml IH Q4HR PRN 08/10/18 [History] LORazepam [Ativan] 0.5 mg PO Q3H PRN 08/10/18 [History] Torsemide [Demadex] 40 mg PO BID 08/10/18 [History] Warfarin [Coumadin] 2 mg PO 1800 08/10/18 [History] Warfarin [Coumadin] 5 mg PO 1800 08/10/18 [History] predniSONE [PredniSONE] 10 mg PO DAILY 08/10/18 [History] Allergy/AdvReac Type Severity Reaction Status Date / Time Amoxicillin [From Augmentin] Allergy See Verified 08/10/18 14:00 Comments clavulanic acid Allergy See Verified 08/10/18 14:00 [From Augmentin] Comments meperidine [From Demerol] Allergy See Verified 08/10/18 14:00 Comments sulfamethoxazole Allergy Rash Verified 08/10/18 14:00 [From Bactrim] trimethoprim [From Bactrim] Allergy Rash Verified 08/10/18 14:00 baclofen AdvReac See Verified 08/10/18 14:00 Comments All Systems Review: The remainder of the systems were reviewed and are negative Physical Examination Vital Signs, Last 4 Hours Temp Pulse Resp BP Pulse Ox 08/16/18 06:33 97.8 F 91 16 128/79 94 08/16/18 04:56 16 117/70 97 General: Conversant HEENT: Atraumatic Neck: No JVD Cardiac: Reg Rate and Rhythm Lungs: Normal Breath Sounds Neuro: Alert and responsive Abdomen: Soft Skin: No rashes noted on visualized skin Musculoskeletal: No Chest Wall Tenderness Extremities: Other (2+ edema) Results 08/15/18 12:15 08/16/18 06:14 Lab Results 08/15/18 08/16/18 08/16/18 12:15 06:14 06:14 WBC 12.7 H Hgb 13.3 Hct 41.0 Plt Count 194 INR 1.9 Sodium 135 L Potassium 2.6 L Chloride 89 L Carbon Dioxide 35 H BUN 42 H Creatinine 0.82 Glucose 156 H Calcium 8.9 - EKG Interpretation EKG results cardiology: personally reviewed, sinus rhythm, no diagnostic ischemia (VICD) Consult Discharge Plan - Plan Referrals: Fartun Quinones, JOURNALISM INSTRUCTOR [Primary Care Provider] -
--- NOTE | 2018-08-16 08:58 | Internal Med Progress Note ---
Hospitalist Progress Note - Encounter Date of Encounter: 08/16/18 Time of Encounter: 08:55 - Subjective Interval History: short of breath but stable. Since yesterday he is feeling congested with cough but not able to bring up. Review of the lab with low potassium. INR 1.9. CBC is still pending. Review of the I&O's with -1200 output. Denies fever chills nausea vomiting headache dizziness chest pain abdominal pain diarrhea - Exam Vitals: Temp Pulse Resp BP Pulse Ox 97.8 F 91 16 128/79 94 08/16/18 06:33 08/16/18 06:33 08/16/18 06:33 08/16/18 06:33 08/16/18 06:33 Exam: GEN: NAD, oxygen by nasal cannula CVS: RRR. S1, S2, No m/r/g RESP: Diminished with scattered wheezes. Bibasilar crackles. ABD: Soft, NT, ND, +BS EXT: 1/2+ edema. 2+ DP. No rashes NEURO: No focal neurological deficit. - Assessment and Plan (1) Acute exacerbation of CHF (congestive heart failure) Current Visit: Yes Status: Acute Assessment and Plan: Initially a started IV Lasix twice a day and Zaroxolyn . Patient has started to improve therefore decrease IV Lasix once daily but again worsening of shortness of breath therefore increased frequency of IV Lasix twice a day. Patient has been challenging in managing diuresis therefore I will consult cardiology. Patient also had on-call from his cardiology office Dr. Elfego laguerre for possible PPM evaluation but he is not sure why. I look the previous notes but not able to figure out therefore consulted cardiology for further evaluation. Patient will decide for hospice care with that he wanted to enroll or not on the after discussing with cardiology. monitor I&O's. Says he has a dry weight of 370 pounds Last echo June 2018-EF 65%, mild LVEDD, grossly right ventricle widely dilated, mild pulmonary hypertension with RVSP 41 mmHg Patient has hyperkalemia 2.6. Potassium supplementation replacement. Will repeat potassium level after 4 hours. Magnesium level also ordered. BMP monitoring (2) COPD with acute exacerbation Current Visit: Yes Status: Acute Assessment and Plan: Patient is on chronic prednisone. Initially patient was on IV steroid and changed to prednisone 60 mg daily on 419 2019. Continue nebs, spirometry, oxygen supplementation. Patient follows pulmonologists Dr. Dinero on OPD basis-consulted him for appropriate plan of management. Patient has been complicated in managing his COPD and has had frequent admission in the hospital and last few months. Patient sounds congested not able to bring up the cough therefore respiratory therapist consulted. Mucomyst nebulizer with incentive spirometry. Continue oxygen supplementation and DuoNeb (3) Morbid obesity with BMI of 60.0-69.9, adult Current Visit: Yes Status: Chronic Assessment and Plan: Diet and exercise (4) Atrial fibrillation Current Visit: Yes Status: Acute Assessment and Plan: rate controlled. continue coumadin. INR 1.9. Pharmacy to dose Coumadin (5) Goals of care, counseling/discussion Current Visit: Yes Status: Acute Assessment and Plan: Concern for noncompliance especially for oxygen. Patient has multiple admission in past several months. Palliative care team was consulted as patient wanted to have further discussion about hospice option. Patient has been on transient home hospice care and took himself out. Review of the palliative care team note-patient is DNR CCA, okay with intubation if necessary. Patient supposed to follow cardiology Dr. Elfego Laguerre for the evaluation of pacemaker. Therefore he does not want hospice at this time but would consider after discussing with line up worker. On board nitro worker to make appropriate discharge plan to prevent frequent readmission especially not having appropriate supply from oxygen due to financial problem while weaning down the Lasix and his steroid. Please see above for the details Especially more than 35 minute inpatient care and communication with nursing staff and consultants (6) DVT prophylaxis Current Visit: Yes Status: Acute Assessment and Plan: On warfarin. Therapeutic INR - Time Spent with Patient Total time spent is greater than 50% in coordination of care (as documented) at patient's floor/unit and/or counseling patient: Greater than 35 minutes Internal Medicine: Result - Labs CBC & Chem 7: 08/15/18 12:15 08/16/18 06:14 Labs: Short CBC 08/15/18 Range/Units 12:15 WBC 12.7 H (4.3-11.1) K/mcL Hgb 13.3 (12.9-16.9) g/dL Hct 41.0 (37.5-50.1) % Plt Count 194 (140-400) K/mcL Neutrophils # 9.6 H (1.6-8.9) K/mcL BMP 08/16/18 06:14 Sodium 135 L Potassium 2.6 L Chloride 89 L Carbon Dioxide 35 H BUN 42 H Creatinine 0.82 Glucose 156 H Calcium 8.9 - ABG Interpretation ABG results: PT/INR, D-dimer PT 21.9 Seconds (9.4-12.1) H 08/16/18 06:14 Consult Discharge Plan - Plan Referrals: Fartun Quinones, ART HISTORY PROFESSOR [Primary Care Provider] - (1) Acute exacerbation of CHF (congestive heart failure) Qualifiers: Qualified Code(s): I50.33 - Acute on chronic diastolic (congestive) heart failure (4) Atrial fibrillation Qualifiers: Qualified Code(s): I48.0 - Paroxysmal atrial fibrillation
[2018-08-16 09:35] LABS: Magnesium 2.2 mg/dL (1.6-2.6)
[2018-08-16] MEDS: Acetylcysteine 10% 2 ML INHSOL IH SCH ×3 (11:30→20:10)
--- NOTE | 2018-08-16 13:09 | Pulmonology Consult Note ---
Date of Encounter: 08/16/18 Time of Encounter: 09:00 Assessment and Plan (1) Acute and chronic respiratory failure Current Visit: Yes Status: Acute Is multifactorial contributed by obstructive and restrictive ventilatory impairment due to COPD, morbid obesity, COPD/BECK overlap syndrome. Diastolic heart failure, class II/class III pulmonary hypertension. I explained telemetry about this very difficult to treat multiple comorbidities since this diastolic heart failure is complicated by his make set obstructive and restrictive ventilatory impairment morbid obesity and pulmonary hypertension this all can be controlled temporarily but recurrent hospital admission least high risk of morbidity and mortality I extensively discussed about his prognosis patient is debating about being on hospice with the current lifestyle. Patient categorically does not want any aggressive measure if he develops severe respiratory failure and cardiac arrest patient wants his CODE STATUS to be DNR CCA without intubation he wants to think about it will let the primary team and palliative chest week within acting DNR CCA/DO NOT INTUBATE is an appropriate CODE STATUS according to patient wishes. Qualifiers: Respiratory failure complication: hypoxia Qualified Code(s): J96.21 - Acute and chronic respiratory failure with hypoxia (2) Afib Current Visit: No Status: Chronic Rate control paroxysmal atrial fibrillation with RVR cannot put him into diastolic heart failure that can be the reason for recurrent hospital admission will need further outpatient evaluation of this atrial fibrillation on inpatient evaluation. I explained about the mechanics and off how atrial fibrillation with RVR can put him in the shortness of breath that brings him into the hospital Qualifiers: Atrial fibrillation type: chronic Qualified Code(s): I48.2 - Chronic atrial fibrillation (3) COPD (chronic obstructive pulmonary disease) Current Visit: No Status: Chronic Has underlying COPD complicated by severe restrictive ventilatory impairment due to morbid obesity that is contributing this symptomatology even acetyl develo pment of hydrostatic pulmonary edema due to diastolic dysfunction and put them into this can or shortness of breath Qualifiers: COPD type: unspecified COPD Qualified Code(s): J44.9 - Chronic obstructive pulmonary disease, unspecified (4) BECK (obstructive sleep apnea) Current Visit: No Status: Chronic In BECK on BiPAP to continue BiPAP at night (5) Acute on chronic diastolic (congestive) heart failure Current Visit: Yes Status: Acute Patient has acute on chronic diastolic heart failure as his according to primary team. I told him if the kidney fails is very hard to control his fluid status. History of Present Illness Consult date: 08/16/18 Requesting physician: Wandy Villafuerte Reason for consult: dyspnea Chief complaint: Shortness of breath History of present illness: 63-year-old male with past medical history significant for morbid obesity, BECK/COPD overlap syndrome, with diastolic heart failure, pulmonary hypertension most likely class II and class III symptoms, severe morbid obesity poor deconditioning he comes to the hospital with recurrent complicated diastolic heart failure exacerbation also complicated by underlying COPD, morbid obesity and also pulmonary hypertension is time he gets admitted he gets some IV diuresis and he gets discharged patient says his usual presentation or shortness of breath denies much cough or sputum production. A maximally optimize his outpatient therapy with BiPAP therapy patient was tolerating his BiPAP therapy I extensively educated about salt and water restriction he was evaluated by [facility] heart failure specialist was told he is 6 months to live patient was to clarify about the pulmonary was consult her regarding that. Past Med Surg Social Fam HX - Past Medical History Medical history: asthma, atrial fibrillation, CHF, COPD, coronary artery disease, diabetes, hyperlipidemia, hypertension, myocardial infarction, perip heral artery disease, renal disease, thyroid disease, other Additional medical history: Grave's disease, CKD (unsure what stage). Psychiatric history: anxiety, depression - Past Surgical History Surgical History: angioplasty/stent, orthopedic, other Additional surgical history: one cardiac stent. left hand surgery. Bilateral eye surgery - Social History Smoking Status: Current every day smoker Smokeless Tobacco Status: No Alcohol use: none, rarely Drug use: none - Family History Mother Family Member Ethnicity: Non- Living Status: Hx Family Cardiac Disorders: No Hx Family Respiratory Disorders: No Father Family Member Ethnicity: Non- Living Status: Hx Family Cardiac Disorders: No Hx Family Respiratory Disorders: No Hx Family Cancer: Yes Brother Family Member Ethnicity: Non- Living Status: Still Living Hx Family Cardiac Disorders: Yes (Pacemaker) Hx Family Endocrine Disorder: Yes (DM) Sister Family Member Ethnicity: Non- Living Status: Still Living Hx Family Cardiac Disorders: No Hx Family Respiratory Disorders: No Hx Family Cancer: Yes (dad pancereas) Hx Family GI Disorders: No Hx Family Endocrine Disorder: No Hx Family Neuromuscular Disorders: No Hx Family Neurologic Disorders: No Hx Family HEENT Disorders: No Hx Family Autoimmune Disorders: No Medications and Allergies Docusate Sodium [Stool Softener] 100 mg PO BID 08/04/16 [History] Metformin HCl [Glucophage] 1,000 mg PO BID 08/04/16 [History] Nitroglycerin [Nitrostat] 0.4 mg SL Q5M PRN 08/04/16 [History] Omeprazole [PriLOSEC] 20 mg PO DAILY 08/04/16 [History] Pentoxifylline [TRENtal] 400 mg PO BID 08/04/16 [History] Potassium Chloride [K-Tab ER] 20 meq PO DAILY 08/04/16 [History] Budesonide/Formoterol 160/4.5 [Symbicort 160/4.5] 2 puff IH BIDR 08/28/17 [History] Cyclobenzaprine [Flexeril] 10 mg PO QAM 08/28/17 [History] traZODone [TraZODone] 50 mg PO HS #0 tablet 09/13/17 [Rx] Levothyroxine Sodium [Levoxyl] 275 mcg PO DAILY 12/12/17 [History] hydrOXYzine HCl [Hydroxyzine HCl] 25 mg PO BID PRN 02/21/18 [History] Gabapentin [Neurontin] 600 mg PO BID 04/29/18 [History] Oxycodone HCl/Acetaminophen [Percocet 7.5-325 mg Tablet] 1 tab PO Q6H PRN 04/29/18 [History] Aspirin 81 mg PO DAILY 07/05/18 [History] Atorvastatin [Lipitor] 40 mg PO HS 07/05/18 [History] FLUoxetine HCl [Prozac] 20 mg PO QAM 07/05/18 [History] Cyclobenzaprine [Flexeril] 20 mg PO HS 08/10/18 [History] Ipratropium/Albuterol Neb [Duoneb] 3 ml IH Q4HR PRN 08/10/18 [History] LORazepam [Ativan] 0.5 mg PO Q3H PRN 08/10/18 [History] Torsemide [Demadex] 40 mg PO BID 08/10/18 [History] Warfarin [Coumadin] 2 mg PO 1800 08/10/18 [History] Warfarin [Coumadin] 5 mg PO 1800 08/10/18 [History] predniSONE [PredniSONE] 10 mg PO DAILY 08/10/18 [History] Allergy/AdvReac Type Severity Reaction Status Date / Time Amoxicillin [From Augmentin] Allergy See Verified 08/10/18 14:00 Comments clavulanic acid Allergy See Verified 08/10/18 14:00 [From Augmentin] Comments meperidine [From Demerol] Allergy See Verified 08/10/18 14:00 Comments sulfamethoxazole Allergy Rash Verified 08/10/18 14:00 [From Bactrim] trimethoprim [From Bactrim] Allergy Rash Verified 08/10/18 14:00 baclofen AdvReac See Verified 08/10/18 14:00 Comments All Systems: The remainder of the systems were reviewed and are negative Physical Examination Vital Signs: Vital Signs, Last 4 Hours Temp Pulse Resp BP Pulse Ox 08/16/18 11:31 18 97 08/16/18 10:33 98.0 F 93 16 126/69 96 Effort: mildly labored Auscultation: bilateral: diminished breath sounds, rales Cardiovascular: irregular rhythm Gastrointestinal: normoactive bowel sounds Integumentary: other Extremities: other (Lymphedema ) normal mental status, non-focal exam mood appropriate Results - Laboratory Findings CBC and BMP: 08/15/18 12:15 08/16/18 15:01 PT/INR, D-dimer PT 21.9 Seconds (9.4-12.1) H 08/16/18 06:14 Abnormal lab findings: Abnormal lab results WBC 12.7 K/mcL (4.3-11.1) H 08/15/18 12:15 RDW 15.0 % (11.5-14.5) H 08/15/18 12:15 Neutrophils # 9.6 K/mcL (1.6-8.9) H 08/15/18 12:15 PT 21.9 Seconds (9.4-12.1) H 08/16/18 06:14 Sodium 135 mEq/L (136-145) L 08/16/18 06:14 Potassium 2.6 mEq/L (3.5-5.1) L 08/16/18 06:14 Chloride 89 mEq/L (98-107) L 08/16/18 06:14 Carbon Dioxide 35 mEq/L (23-29) H 08/16/18 06:14 BUN 42 mg/dL (8-23) H 08/16/18 06:14 BUN/Creatinine Ratio 51 (6-26) H 08/16/18 06:14 Glucose 156 mg/dL (70-105) H 08/16/18 06:14 POC Glucose 214 mg/dL (70-99) H 08/15/18 16:30 - Clinical Findings Intake & Output: Intake & Output 08/15/18 08/16/18 08/16/18 23:59 07:59 15:59 Intake Total 240 / 240 0 / 0 Output Total 2200 / 2200 1600 / 1600 1625 / 1625 Balance -1959 / -1959 -1599 / -1599 -1625 / -1625 Weight 170.5 kg Consult Discharge Plan - Plan Referrals: Fartun Quinones, [employer] [Primary Care Provider] -
[2018-08-16] MEDS ORDERED: Nitroglycerin 0.4 MG TAB.SUBL SL PRN (17:34)
[2018-08-16] MEDS ORDERED: *HR* Warfarin 5 MG TABLET PO ONE (18:00)
[2018-08-16] MEDS ORDERED: *HR* Warfarin 1 MG TABLET PO ONE (18:00)
[2018-08-16] MEDS: Torsemide 20 MG TABLET PO SCH (18:52)
[2018-08-16] MEDS: traZODone 50 MG TABLET PO SCH (21:33)
[2018-08-17] MEDS: Acetylcysteine 10% 2 ML INHSOL IH SCH ×4 (03:42→19:58)
[2018-08-17] MEDS: Ipratropium/Albuterol Neb 3 ML IH SCH ×5 (03:42→19:57)
[2018-08-17 05:49] LABS: INR 2.2; Prothrombin Time 24.4 Seconds (9.4-12.1)
[2018-08-17 05:59] LABS: BUN/Creatinine Ratio 38 (6-26); Blood Urea Nitrogen 46 mg/dL (8-23); Calcium 9.7 mg/dL (8.6-10.3); Carbon Dioxide 39 mEq/L (23-29); Chloride 83 mEq/L (98-107); Glucose 173 mg/dL (70-105); Osmolality,Calculated 302 (280-300); Potassium 2.7 mEq/L (3.5-5.1); Sodium 138 mEq/L (136-145); eGFR For Non-African Americans > 60 (> 60)
[2018-08-17] MEDS: Budesonide/Formoterol 160/4.5 1 PUFF INH IH SCH ×2 (07:28→19:58)
[2018-08-17] MEDS: Insulin LISPRO 300 UNITS/3 ML VIAL SQ SCH ×4 (08:08→22:41)
[2018-08-17] MEDS: *HR* LORazepam 0.5 MG TABLET PO SCH ×2 (08:09→22:40)
[2018-08-17] MEDS: Aspirin 81 MG TAB.CHEW PO SCH (08:09)
[2018-08-17] MEDS: Torsemide 20 MG TABLET PO SCH ×2 (08:09→16:55)
[2018-08-17] MEDS: FLUoxetine 20 MG CAPSULE PO SCH (08:10)
[2018-08-17] MEDS: predniSONE 20 MG TABLET PO SCH (08:10)
[2018-08-17] MEDS: Gabapentin 300 MG CAPSULE PO SCH ×2 (08:10→22:40)
[2018-08-17] MEDS: metOLazone 5 MG TABLET PO SCH (08:11)
[2018-08-17 08:24] LABS: Basophils # 0.1 K/mcL (0.0-0.2); Basophils % 0.4 %; Eosinophils % 0.2 %; Hematocrit 47.2 % (37.5-50.1); Immature Granulocytes % 1.9 % (0-4); Lymphocytes # 4.7 K/mcL (0.6-4.6); Lymphocytes % 27.4 %; Mean Corpuscular HGB Conc 33.3 g/dL (31.6-35.5); Mean Corpuscular Hemoglobin 28.8 pg (28.0-33.3); Mean Corpuscular Volume 86.6 fL (83.0-100.0); Mean Platelet Volume 10.6 fL (9.4-12.4); Monocytes # 1.7 K/mcL (0.0-1.3); Monocytes % 9.7 %; Neutrophils # 10.2 K/mcL (1.6-8.9); Platelet Count 224 K/mcL (140-400); Red Blood Count 5.45 M/mcL (4.19-5.50); Red Cell Distribution Width 14.8 % (11.5-14.5); Segmented Neutrophils % 60.4 %
[2018-08-17 08:43] LABS: Hemoglobin 15.7 g/dL (12.9-16.9)
--- NOTE | 2018-08-17 09:11 | Event Note ---
Date of Encounter: 08/17/18 Time of Encounter: 09:00 - Cardiology Event Note I had discussion with patient regarding recommendations yesterday for possible loop recorder insertion. To clarify, patient does not need pacemaker or ICD. Patient prefers to follow-up with electrophysiology as outpatient planned later this week to evaluate if loop recorder warranted. Cardiology signoff, reconsult as needed, follow-up as planned.
--- NOTE | 2018-08-17 11:28 | Pulmonology Progress Note ---
Date of Encounter: 08/17/18 Time of Encounter: 08:00 Assessment and Plan (1) Acute and chronic respiratory failure Current Visit: Yes Status: Acute Qualifiers: Respiratory failure complication: hypoxia Qualified Code(s): J96.21 - Acute and chronic respiratory failure with hypoxia (2) Afib Current Visit: No Status: Chronic Qualifiers: Atrial fibrillation type: chronic Qualified Code(s): I48.2 - Chronic atrial fibrillation (3) COPD (chronic obstructive pulmonary disease) Current Visit: No Status: Chronic Qualifiers: COPD type: unspecified COPD Qualified Code(s): J44.9 - Chronic obstructive pulmonary disease, unspecified (4) BECK (obstructive sleep apnea) Current Visit: No Status: Chronic (5) Acute on chronic diastolic (congestive) heart failure Current Visit: Yes Status: Acute Objective PUL Vital signs: Last Vital Signs Temp 97.7 F 08/17/18 10:33 Pulse 92 08/17/18 10:33 Resp 16 08/17/18 10:33 BP 122/77 08/17/18 10:33 Pulse Ox 92 08/17/18 10:33 Results - Laboratory Findings CBC and BMP: 08/17/18 07:57 08/17/18 05:13 PT/INR, D-dimer PT 24.4 Seconds (9.4-12.1) H 08/17/18 05:13 Abnormal lab findings: Abnormal lab results WBC 17.0 K/mcL (4.3-11.1) H 08/17/18 07:57 RDW 14.8 % (11.5-14.5) H 08/17/18 07:57 Neutrophils # 10.2 K/mcL (1.6-8.9) H 08/17/18 07:57 Lymphocytes # 4.7 K/mcL (0.6-4.6) H 08/17/18 07:57 Monocytes # 1.7 K/mcL (0.0-1.3) H 08/17/18 07:57 PT 24.4 Seconds (9.4-12.1) H 08/17/18 05:13 Potassium 2.7 mEq/L (3.5-5.1) L 08/17/18 05:13 Chloride 83 mEq/L (98-107) L 08/17/18 05:13 Carbon Dioxide 39 mEq/L (23-29) H 08/17/18 05:13 BUN 46 mg/dL (8-23) H 08/17/18 05:13 BUN/Creatinine Ratio 38 (6-26) H 08/17/18 05:13 Glucose 173 mg/dL (70-105) H 08/17/18 05:13 POC Glucose 227 mg/dL (70-99) H 08/16/18 11:12 Calculated Osmolality 302 (280-300) H 08/17/18 05:13 - Clinical Findings Intake & Output: Intake & Output 08/16/18 08/17/18 08/17/18 23:59 07:59 15:59 Intake Total 240 / 240 0 / 0 360 / 360 Output Total 3000 / 3000 2400 / 2400 700 / 700 Balance -2760 / -2760 -2400 / -2400 -340 / -340 Weight 163.8 kg Consult Discharge Plan - Plan Referrals: Fartun Quinones, [employer]IDENT [employer] [Primary Care Provider] -
--- NOTE | 2018-08-17 12:08 | Palliative Progress Note ---
<Fletcher Cerna - Last Filed: 08/17/18 12:16> Date of Encounter: 08/17/18 Time of Encounter: 11:40 - Assessment and plan (1) Sciatic nerve pain Current Visit: Yes Status: Acute Assessment and plan: Controlled. - Continue home dose of neurontin. Qualifiers: Laterality: left Qualified Code(s): M54.32 - Sciatica, left side (2) Dyspnea Current Visit: Yes Status: Acute Assessment and plan: Increased upon admission. Seems to have improved compared to today. Has Ativan scheduled and PRN. Oxycodone in Percocet also helpful with dyspnea. - Continue Oxycodone and Ativan. Per Cardiology: Suspect his overall presentation of dyspnea and edema is related to morbid obesity, COPD and likely obesity hypoventilation syndrome along with pretibial myxedema from his history of Graves disease / venous insufficiency. He has a normal EF by TTE and numerous normal BNPs in [employer]. He has permanent pretibial myxedema from Graves disease causing his edema. Given his 3L COPD and morbid obesity with secondary pulmonary hypertension the finding of pulmonary vascular congestion on a supine single view CXR is not surprising and does not necessarily correspond to CHF. He does have a mildly dilated RV (without RV failure yet) by echo. Pulmonary hypertension was mild by TTE, but thought to be underestimated. From both my opinion as well as his primary rectifier operator, he does not have a diagnosis of CHF - diastolic or otherwise, though that diagnosis keeps being applied to him. Qualifiers: Dyspnea type: shortness of breath Qualified Code(s): R06.02 - Shortness of breath; R06.00 - Dyspnea, unspecified; R06.01 - Orthopnea (3) Goals of care, counseling/discussion Current Visit: Yes Status: Acute Assessment and plan: Cardiology was consulted. There is no plan for pacemaker placement for now. Plan was to put a loop recorder to evaluate if he has any more PAF to help guide his rate control therapies, however patient has declined this. In terms of code status, patient wishes to be DNRCC. Paperwork was signed. He also wishes to be discharged home to be follow-up with [facility]. Was able to confirm that [facility] is able to follow the patient at his home address. Patient also expressed desire for him to be followed by his PCP Dr. Fartun Quinones while on home hospice care. (4) Atrial fibrillation Current Visit: Yes Status: Acute Assessment and plan: History of PAF sp ablation per history with no known recent EKGs showing recurrent atrial fibrillation. - Per cardiology, continue rate control and chronic AC INR 2-3 with coumadin. Qualifiers: Atrial fibrillation type: paroxysmal Qualified Code(s): I48.0 - Paroxysmal atrial fibrillation (5) COPD (chronic obstructive pulmonary disease) Current Visit: No Status: Chronic Assessment and plan: Severe restrictive ventilatory impairment due to morbid obesity. Patient is on chronic prednisone. Patient follows pulmonologists Dr. Dinero on OPD basis- consulted him for appropriate plan of management. Patient has been complicated in managing his COPD and has had frequent admission in the hospital and last few months. Improving respiratory status. Per Primary team: - Onboard respiratory therapist. Continue Mucomyst nebulizer with incentive spirometry. Continue oxygen supplementation and DuoNeb - Decreased prednisone dose 50 mg by mouth daily with ID of slowed tapering based on condition as mentioned above. Repeat CBC tomorrow Qualifiers: COPD type: unspecified COPD Qualified Code(s): J44.9 - Chronic obstructive pulmonary disease, unspecified (6) Morbid obesity Current Visit: No Status: Chronic - Time Spent With Patient Total time spent is greater than 50% in coordination of care (as documented) at patient's floor/unit and/or counseling patient: - Subjective Interval history: When seen today, patient was resting comfortably. He denied any generalized pain. Denied any increased SOB. Denies any nausea or vomiting. - Constitutional Vitals: Abnormal lab results WBC 17.0 K/mcL (4.3-11.1) H 08/17/18 07:57 RDW 14.8 % (11.5-14.5) H 08/17/18 07:57 Neutrophils # 10.2 K/mcL (1.6-8.9) H 08/17/18 07:57 Lymphocytes # 4.7 K/mcL (0.6-4.6) H 08/17/18 07:57 Monocytes # 1.7 K/mcL (0.0-1.3) H 08/17/18 07:57 PT 24.4 Seconds (9.4-12.1) H 08/17/18 05:13 Potassium 2.7 mEq/L (3.5-5.1) L 08/17/18 05:13 Chloride 83 mEq/L (98-107) L 08/17/18 05:13 Carbon Dioxide 39 mEq/L (23-29) H 08/17/18 05:13 BUN 46 mg/dL (8-23) H 08/17/18 05:13 BUN/Creatinine Ratio 38 (6-26) H 08/17/18 05:13 Glucose 173 mg/dL (70-105) H 08/17/18 05:13 POC Glucose 227 mg/dL (70-99) H 08/16/18 11:12 Calculated Osmolality 302 (280-300) H 08/17/18 05:13 General appearance: Present: morbidly obese - Head Head exam: Present: normal inspection - Eye Eye exam: Present: normal appearance - Respiratory Respiratory exam: Present: decreased breath sounds. Absent: respiratory distress, wheezes, tachypnea - Cardiovascular Cardiovascular exam: Present: irregular rhythm, +S1, +S2. Absent: +S3, +S4 Additional comments: Regular rate. Distant heart sounds. - GI/Abdominal GI/Abdominal exam: Present: normal bowel sounds, soft. Absent: guarding, rebound, tenderness - Extremities Exam Extremities exam: Present: normal capillary refill, pedal edema. Absent: calf tenderness Additional comments: +1 b/l pitting edema in the lower extremities. Doralis pedis and posterior tibialis pulses intact and symmetrical b/l. - Neurological Exam Neurological exam: Present: alert, oriented X3, no focal deficits, strengths equal and symetr throughout. Absent: facial droop, speech deficit - Psychiatric Psychiatric exam: Present: normal affect, normal mood Palliative Quality Palliative Quality: Screen for Code Status: Yes, Screen for Goals of Care: Yes, Screen for Pain: Yes, If Pain Regimen Started, Initiate Bowel Regimen: NA, Screen for Nausea/Vomitting: Yes Code Status: 08/10/18 17:20 Resuscitation Status: Active [RES] Routine Comment: Resuscitation Status: Full Code 08/15/18 10:23 DNR [Resuscitation Status: Active] [RES] Routine Comment: Resuscitation Status: DNR-Comfort Care-Arrest - Labs CBC & Chem 7: 08/17/18 07:57 08/17/18 05:13 Labs: Laboratory Results - last 24 hr 08/15/18 08/16/18 08/16/18 20:36 07:59 11:12 WBC RBC Hgb Hct MCV MCH MCHC RDW Plt Count MPV Immature Gran % Seg Neutrophils % Lymphocytes % Monocytes % Eosinophils % Basophils % Neutrophils # Lymphocytes # Monocytes # Eosinophils # Basophils # PT INR Sodium Potassium Chloride Carbon Dioxide BUN Creatinine Est GFR ( Amer) Est GFR (Non-Af Amer) BUN/Creatinine Ratio Glucose POC Glucose 167 H 185 H 227 H Calculated Osmolality Calcium 08/16/18 08/17/18 08/17/18 15:01 05:13 05:13 WBC RBC Hgb Hct MCV MCH MCHC RDW Plt Count MPV Immature Gran % Seg Neutrophils % Lymphocytes % Monocytes % Eosinophils % Basophils % Neutrophils # Lymphocytes # Monocytes # Eosinophils # Basophils # PT 24.4 H INR 2.2 Sodium 138 Potassium 3.2 L 2.7 L Chloride 83 L Carbon Dioxide 39 H BUN 46 H Creatinine 1.20 Est GFR ( Amer) > 60 Est GFR (Non-Af Amer) > 60 BUN/Creatinine Ratio 38 H Glucose 173 H POC Glucose Calculated Osmolality 302 H Calcium 9.7 08/17/18 07:57 WBC 17.0 H RBC 5.45 Hgb 15.7 D Hct 47.2 MCV 86.6 MCH 28.8 MCHC 33.3 RDW 14.8 H Plt Count 224 MPV 10.6 Immature Gran % 1.9 Seg Neutrophils % 60.4 Lymphocytes % 27.4 Monocytes % 9.7 Eosinophils % 0.2 Basophils % 0.4 Neutrophils # 10.2 H Lymphocytes # 4.7 H Monocytes # 1.7 H Eosinophils # 0.0 Basophils # 0.1 PT INR Sodium Potassium Chloride Carbon Dioxide BUN Creatinine Est GFR ( Amer) Est GFR (Non-Af Amer) BUN/Creatinine Ratio Glucose POC Glucose Calculated Osmolality Calcium - Impressions Impressions Chest X-Ray 08/16/18 08:58 IMPRESSION: Linear opacities at the left lung base may be atelectasis or scarring. D/ / Matthew Monroe MD / Matthew Monroe MD Interpreting Provider: Matthew Monroe MD - ABG Interpretation ABG results: PT/INR, D-dimer PT 24.4 Seconds (9.4-12.1) H 08/17/18 05:13 Palliative Scale - Palliative Performance Scale How ambulatory is this patient?: Reduced What is patient's level of activity and evidence of disease?: Unable normal job/work, Significant disease How much self-care assistance does patient require?: Occasional assistance necessary How much oral intake does the patient have?: Normal What is this patient's level of consciousness?: Full Palliative Performance Score: 60 % Consult Discharge Plan - Plan Referrals: Fartun Quinnoes, BEAN PICKER MACHINE OPERATOR [Primary Care Provider] - <Helga Werner - Last Filed: 08/17/18 16:32> Date of Encounter: 08/17/18 - Assessment and plan (1) Dyspnea Current Visit: Yes Status: Acute Qualifiers: Dyspnea type: shortness of breath Qualified Code(s): R06.02 - Shortness of breath; R06.00 - Dyspnea, unspecified; R06.01 - Orthopnea (2) COPD with acute exacerbation Current Visit: Yes Status: Acute (3) Goals of care, counseling/discussion Current Visit: Yes Status: Acute (4) Palliative care encounter Current Visit: Yes Status: Acute (5) Acute exacerbation of CHF (congestive heart failure) Current Visit: Yes Status: Acute Qualifiers: Heart failure type: diastolic Qualified Code(s): I50.33 - Acute on chronic diastolic (congestive) heart failure (6) Morbid obesity Current Visit: No Status: Chronic - Time Spent With Patient Total time spent is greater than 50% in coordination of care (as documented) at patient's floor/unit and/or counseling patient: - Constitutional Vitals: Abnormal lab results WBC 17.0 K/mcL (4.3-11.1) H 08/17/18 07:57 RDW 14.8 % (11.5-14.5) H 08/17/18 07:57 Neutrophils # 10.2 K/mcL (1.6-8.9) H 08/17/18 07:57 Lymphocytes # 4.7 K/mcL (0.6-4.6) H 08/17/18 07:57 Monocytes # 1.7 K/mcL (0.0-1.3) H 08/17/18 07:57 PT 24.4 Seconds (9.4-12.1) H 08/17/18 05:13 Potassium 3.4 mEq/L (3.5-5.1) L D 08/17/18 12:46 Chloride 83 mEq/L (98-107) L 08/17/18 05:13 Carbon Dioxide 39 mEq/L (23-29) H 08/17/18 05:13 BUN 46 mg/dL (8-23) H 08/17/18 05:13 BUN/Creatinine Ratio 38 (6-26) H 08/17/18 05:13 Glucose 173 mg/dL (70-105) H 08/17/18 05:13 POC Glucose 227 mg/dL (70-99) H 08/16/18 11:12 Calculated Osmolality 302 (280-300) H 08/17/18 05:13 - Attending Attestation I performed a history and physical examination of the patient and discussed his management with the resident. I reviewed the residents note and agree with the documented findings and plan of care, except as follow: Patient today was feeling almost back to baseline, still short of breath, at rest and with minimal movement. Lab review showed hypokalemia, and worsening creatinine. Discussed current medical condition with patient, including goals of care, trajectory of illness, treatment options and prognosis. Patient was seen by cardiology, and they recommended her loop recorder to better qualify his heart rate. Patient stated he does not see the need of a loop recorder if that is not going to change his current condition, and he understands that most of his symptoms are due to his lung and not his heart. Patient is very realistic and understanding of the poor prognosis of his condition, and would like to have the possibility to stay home as much as possible and spend time of his dog. Patient has had several discussions about hospice, and was admitted to hospice prior to current admission. He states that he was noncompliant with [facility] hospice because they were not present when he needed help with his symptoms. Patient understand he is hospice appropriate and is agreeable to hospice, but would like [facility] was called and confirmed they service his area, so referral was made to [facility] for admission. Patient will need a BiPAP, and a bedside commode as well as a shower chair. Code status was changed to DNRCC, and DNR state form was filled. Patient stated his MPOA is his son Keny, and he has documentation to be provided. Discussed with primary hospitalist, patient to be discharge tomorrow if stable. Dyspnea: continue management of COPD exacerbation per primary tem Oxycodone prn for pain and dyspnea Anxiety: Ativan BID scheduled, and q4hr prn. Palliative Quality Code Status: 08/10/18 17:20 Resuscitation Status: Active [RES] Routine Comment: Resuscitation Status: Full Code 08/15/18 10:23 DNR [Resuscitation Status: Active] [RES] Routine Comment: Resuscitation Status: DNR-Comfort Care-Arrest DNR [Resuscitation Status: Active] [RES] Routine Comment: Resuscitation Status: DNR-Comfort Care - Labs CBC & Chem 7: 08/17/18 07:57 08/17/18 12:46 Labs: Laboratory Results - last 24 hr 08/17/18 08/17/18 08/17/18 05:13 05:13 07:57 WBC 17.0 H RBC 5.45 Hgb 15.7 D Hct 47.2 MCV 86.6 MCH 28.8 MCHC 33.3 RDW 14.8 H Plt Count 224 MPV 10.6 Immature Gran % 1.9 Seg Neutrophils % 60.4 Lymphocytes % 27.4 Monocytes % 9.7 Eosinophils % 0.2 Basophils % 0.4 Neutrophils # 10.2 H Lymphocytes # 4.7 H Monocytes # 1.7 H Eosinophils # 0.0 Basophils # 0.1 PT 24.4 H INR 2.2 Sodium 138 Potassium 2.7 L Chloride 83 L Carbon Dioxide 39 H BUN 46 H Creatinine 1.20 Est GFR ( Amer) > 60 Est GFR (Non-Af Amer) > 60 BUN/Creatinine Ratio 38 H Glucose 173 H Calculated Osmolality 302 H Calcium 9.7 08/17/18 12:46 WBC RBC Hgb Hct MCV MCH MCHC RDW Plt Count MPV Immature Gran % Seg Neutrophils % Lymphocytes % Monocytes % Eosinophils % Basophils % Neutrophils # Lymphocytes # Monocytes # Eosinophils # Basophils # PT INR Sodium Potassium 3.4 L D Chloride Carbon Dioxide BUN Creatinine Est GFR ( Amer) Est GFR (Non-Af Amer) BUN/Creatinine Ratio Glucose Calculated Osmolality Calcium - ABG Interpretation ABG results: PT/INR, D-dimer PT 24.4 Seconds (9.4-12.1) H 08/17/18 05:13
--- NOTE | 2018-08-17 12:13 | Internal Med Progress Note ---
Hospitalist Progress Note - Encounter Date of Encounter: 08/17/18 Time of Encounter: 12:12 - Subjective Interval History: Still has shortness of breath but is stable. Review the lab with high white count and low potassium level. Denies fever chills nausea vomiting headache dizziness chest pain abdominal pain urinary complaint diarrhea - Exam Vitals: Temp Pulse Resp BP Pulse Ox 97.7 F 92 16 122/77 92 08/17/18 10:33 08/17/18 10:33 08/17/18 10:33 08/17/18 10:33 08/17/18 10:33 Exam: GEN: NAD, oxygen by nasal cannula CVS: RRR. S1, S2, No m/r/g RESP: Diminished with scattered wheezes. Bibasilar rales ABD: Soft, NT, ND, +BS EXT: 1/2+ edema-pretibial. 2+ DP. No rashes NEURO: No focal neurological deficit. - Assessment and Plan (1) COPD with acute exacerbation Current Visit: Yes Status: Acute Assessment and Plan: Severe restrictive ventilatory impairment due to morbid obesity .Patient is on chronic prednisone. Initially patient was on IV steroid and changed to prednisone 60 mg daily on 2018. Continue nebs, spirometry, oxygen supple mentation. Patient follows pulmonologists Dr. Dinero on OPD basis-consulted him for appropriate plan of management. Patient has been complicated in managing his COPD and has had frequent admission in the hospital and last few months. Onboard respiratory therapist. Continue Mucomyst nebulizer with incentive spirometry. Continue oxygen supplementation and DuoNeb Patient has leukocytosis with left shift but no fever-most likely reactionary to his steroid as patient respiratory status is stable with no clinical symptom chest pain worsening of shortness of breath cough, abdominal pain urine problem of diarrhea. Decreased prednisone dose 50 mg by mouth daily with ID of slowed tapering based on condition as mentioned above. Repeat CBC tomorrow (2) Acute exacerbation of CHF (congestive heart failure) Current Visit: Yes Status: Acute Assessment and Plan: Initially a started IV Lasix twice a day and Zaroxolyn . Patient has started to improve therefore decrease IV Lasix once daily but again worsening of shortness of breath therefore increased frequency of IV Lasix twice a day. Patient has been challenging in managing diuresis therefore consulted cardiology-not convinced that patient has heart failure. They also cleared that patient does not need pacemaker or ICD but there was planned by his primary boilerhouse mechanic for possible loop recorder insertion. Patient prefers to follow with electrophysiology as planned an outpatient later this week. Cardiology signed off Discontinue IV Lasix and resumed home dose of diuretics. monitor I&O's. Says he has a dry weight of 370 pounds Last echo June 2018-EF 65%, mild LVEDD, grossly right ventricle widely dilated, mild pulmonary hypertension with RVSP 41 mmHg Patient has hyperkalemia 2.7. Potassium supplementation replacement and monitoring BMP. Normal magnesium level. (3) Morbid obesity with BMI of 60.0-69.9, adult Current Visit: Yes Status: Chronic Assessment and Plan: Diet and exercise (4) Atrial fibrillation Current Visit: Yes Status: Acute Assessment and Plan: rate controlled. continue coumadin. INR 1.9. Pharmacy to dose Coumadin (5) Goals of care, counseling/discussion Current Visit: Yes Status: Acute Assessment and Plan: Concern for noncompliance especially for oxygen. Patient has multiple admission in past several months. Palliative care team was consulted as patient wanted to have further discussion about hospice option. Patient has been on transient home hospice care and took himself out. Talked to patient and he expressed desire for DNR CCA without intubation. Palliative care team on board palliative care team on board and patient desire for home hospice. Possible plan to discharge patient tomorrow after having arrangement for home hospice to meet his requirements. And also monitoring white count . (6) DVT prophylaxis Current Visit: Yes Status: Acute Assessment and Plan: On warfarin. Therapeutic INR - Time Spent with Patient Total time spent is greater than 50% in coordination of care (as documented) at patient's floor/unit and/or counseling patient: Internal Medicine: Result - Labs CBC & Chem 7: 08/17/18 07:57 08/17/18 05:13 Labs: Short CBC 08/17/18 Range/Units 07:57 WBC 17.0 H (4.3-11.1) K/mcL Hgb 15.7 D (12.9-16.9) g/dL Hct 47.2 (37.5-50.1) % Plt Count 224 (140-400) K/mcL Neutrophils # 10.2 H (1.6-8.9) K/mcL BMP 08/16/18 08/17/18 15:01 05:13 Sodium 138 Potassium 3.2 L 2.7 L Chloride 83 L Carbon Dioxide 39 H BUN 46 H Creatinine 1.20 Glucose 173 H Calcium 9.7 - ABG Interpretation ABG results: PT/INR, D-dimer PT 24.4 Seconds (9.4-12.1) H 08/17/18 05:13 - Impressions Impressions Chest X-Ray 08/16/18 08:58 IMPRESSION: Linear opacities at the left lung base may be atelectasis or scarring. D/ / Matthew Monroe MD / Matthew Monroe MD Interpreting Provider: Matthew Monroe MD Consult Discharge Plan - Plan Referrals: Fartun Quinones, DENTAL TECHNICIAN METAL [Primary Care Provider] - (2) Acute exacerbation of CHF (congestive heart failure) Qualifiers: Qualified Code(s): I50.33 - Acute on chronic diastolic (congestive) heart failure (4) Atrial fibrillation Qualifiers: Qualified Code(s): I48.0 - Paroxysmal atrial fibrillation
--- NOTE | 2018-08-17 12:48 | Pulmonology Progress Note ---
Date of Encounter: 08/17/18 Time of Encounter: 12:40 Assessment and Plan (1) Acute and chronic respiratory failure Current Visit: Yes Status: Acute Patient responded well to diuretics and bronchodilators. With background history of diastolic heart failure, morbid obesity COPD, atrial fibrillation with on and off for a rapid ventricular response pulmonary hypertension all complicates this recurrent admissions. Patient will be deciding CODE STATUS by talking with his family and reinforced to make that decision what is appropriate for him to strongly recommended against intensive care management. Qualifiers: Respiratory failure complication: hypoxia Qualified Code(s): J96.21 - Acute and chronic respiratory failure with hypoxia (2) Afib Current Visit: No Status: Chronic Patient rate is controlled. Qualifiers: Atrial fibrillation type: chronic Qualified Code(s): I48.2 - Chronic atrial fibrillation (3) COPD (chronic obstructive pulmonary disease) Current Visit: No Status: Chronic Patient has recurrent COPD exacerbation patient needs presentation is not only COPD is also the diastolic dysfunction each presentation his legs swells up and anasarca most of the presentation shortness of breath of not much cough and sputum production suggestive COPD exacerbation episodes of combined cardiac and pulmonary causes with secondary pulmonary hypertension with this class II and class III complicating his picture with reduced exercise tolerance. Patient wants to be comfort care with no aggressive measures with agree for some bronchodilators and diuretics patient might be discharged home with bronchodilators and diuretics with hospice backup will see him in as an outpatient to optimize his regimen. So he can be symptomatically benefited [facility] might take over. Qualifiers: COPD type: unspecified COPD Qualified Code(s): J44.9 - Chronic obstructive pulmonary disease, unspecified (4) BECK (obstructive sleep apnea) Current Visit: No Status: Chronic Use BiPAP at night which will help in comfort measures also. (5) Acute on chronic diastolic (congestive) heart failure Current Visit: Yes Status: Acute Patient has combined diastolic heart failure and COPD complicating the presentat ion and also pulmonary hypertension is contributing. Subjective Principal diagnosis: acute exacerbation of COPD complicated by diastolic heart failure Interval history: Patient has no acute events overnight patient is getting better with current treatment. Objective PUL Vital signs: Last Vital Signs Temp 97.7 F 08/17/18 10:33 Pulse 92 08/17/18 10:33 Resp 16 08/17/18 10:33 BP 122/77 08/17/18 10:33 Pulse Ox 92 08/17/18 10:33 Effort: mildly labored Auscultation: bilateral: diminished breath sounds, rales Cardiovascular: irregular rhythm Gastrointestinal: normoactive bowel sounds Extremities: edema normal mental status, non-focal exam Results - Laboratory Findings CBC and BMP: 08/17/18 07:57 08/17/18 12:46 PT/INR, D-dimer PT 24.4 Seconds (9.4-12.1) H 08/17/18 05:13 Abnormal lab findings: Abnormal lab results WBC 17.0 K/mcL (4.3-11.1) H 08/17/18 07:57 RDW 14.8 % (11.5-14.5) H 08/17/18 07:57 Neutrophils # 10.2 K/mcL (1.6-8.9) H 08/17/18 07:57 Lymphocytes # 4.7 K/mcL (0.6-4.6) H 08/17/18 07:57 Monocytes # 1.7 K/mcL (0.0-1.3) H 08/17/18 07:57 PT 24.4 Seconds (9.4-12.1) H 08/17/18 05:13 Potassium 2.7 mEq/L (3.5-5.1) L 08/17/18 05:13 Chloride 83 mEq/L (98-107) L 08/17/18 05:13 Carbon Dioxide 39 mEq/L (23-29) H 08/17/18 05:13 BUN 46 mg/dL (8-23) H 08/17/18 05:13 BUN/Creatinine Ratio 38 (6-26) H 08/17/18 05:13 Glucose 173 mg/dL (70-105) H 08/17/18 05:13 POC Glucose 227 mg/dL (70-99) H 08/16/18 11:12 Calculated Osmolality 302 (280-300) H 08/17/18 05:13 - Clinical Findings Intake & Output: Intake & Output 08/16/18 08/17/18 08/17/18 23:59 07:59 15:59 Intake Total 240 / 240 0 / 0 510 / 510 Output Total 3000 / 3000 2400 / 2400 1300 / 1300 Balance -2760 / -2760 -2400 / -2400 -790 / -790 Weight 163.8 kg Consult Discharge Plan - Plan Referrals: Fartun Quinones, BAR MACHINE OPERATOR MULTIPLE [employer]LE [Primary Care Provider] -
[2018-08-17] MEDS ORDERED: *HR* Warfarin 2 MG TABLET PO ONE (18:00)
[2018-08-17] MEDS ORDERED: *HR* Warfarin 5 MG TABLET PO ONE (18:00)
[2018-08-17] MEDS: traZODone 50 MG TABLET PO SCH (22:39)
[2018-08-17] MEDS: *HR* OxyCODONE/APAP 7.5/325 TABLET PO PRN (22:57)
[2018-08-18] MEDS: Ipratropium/Albuterol Neb 3 ML IH SCH ×6 (00:28→20:02)
[2018-08-18] MEDS: Acetylcysteine 10% 2 ML INHSOL IH SCH ×4 (03:46→20:03)
[2018-08-18 06:42] LABS: Basophils # 0.1 K/mcL (0.0-0.2); Basophils % 0.4 %; Eosinophils % 0.1 %; Hematocrit 46.1 % (37.5-50.1); Hemoglobin 15.2 g/dL (12.9-16.9); Lymphocytes # 4.2 K/mcL (0.6-4.6); Lymphocytes % 22.3 %; Mean Corpuscular Hemoglobin 29.3 pg (28.0-33.3); Mean Corpuscular Volume 88.8 fL (83.0-100.0); Mean Platelet Volume 10.5 fL (9.4-12.4); Monocytes # 2.2 K/mcL (0.0-1.3); Monocytes % 11.5 %; Neutrophils # 12.1 K/mcL (1.6-8.9); Platelet Count 236 K/mcL (140-400); Red Blood Count 5.19 M/mcL (4.19-5.50); Red Cell Distribution Width 14.9 % (11.5-14.5); Segmented Neutrophils % 63.7 %
[2018-08-18 06:50] LABS: INR 2.1
[2018-08-18 07:12] LABS: BUN/Creatinine Ratio 49 (6-26); Blood Urea Nitrogen 65 mg/dL (8-23); Calcium 9.6 mg/dL (8.6-10.3); Carbon Dioxide 39 mEq/L (23-29); Chloride 79 mEq/L (98-107); Glucose 169 mg/dL (70-105); Osmolality,Calculated 299 (280-300); Potassium 2.3 mEq/L (3.5-5.1); Sodium 133 mEq/L (136-145); eGFR For Non-African Americans 54 (> 60)
[2018-08-18] MEDS: Budesonide/Formoterol 160/4.5 1 PUFF INH IH SCH ×2 (07:33→20:03)
[2018-08-18] MEDS: Aspirin 81 MG TAB.CHEW PO SCH (07:39)
[2018-08-18] MEDS: Torsemide 20 MG TABLET PO SCH ×2 (07:39→16:23)
[2018-08-18] MEDS: *HR* LORazepam 0.5 MG TABLET PO SCH ×2 (07:40→20:57)
[2018-08-18] MEDS: Gabapentin 300 MG CAPSULE PO SCH ×2 (07:40→20:57)
[2018-08-18] MEDS: predniSONE 20 MG TABLET PO SCH (07:42)
[2018-08-18] MEDS: FLUoxetine 20 MG CAPSULE PO SCH (07:43)
[2018-08-18] MEDS: Insulin LISPRO 300 UNITS/3 ML VIAL SQ SCH ×4 (08:09→20:58)
[2018-08-18] MEDS ORDERED: predniSONE 20 MG TABLET PO SCH (09:00)
[2018-08-18 10:31] LABS: Magnesium 2.2 mg/dL (1.6-2.6)
[2018-08-18] MEDS: *HR* OxyCODONE/APAP 7.5/325 TABLET PO PRN ×2 (11:31→20:57)
--- NOTE | 2018-08-18 14:38 | Internal Med Progress Note ---
Hospitalist Progress Note - Encounter Date of Encounter: 08/18/18 Time of Encounter: 14:38 - Subjective Interval History: Patient stated that he is not feeling good increasing fatigue and generalized weakness. Intermittent fluctuation of shortness of breath. Review the lab with low potassium, trending of white count, trending up creatinine Denies fever chills nausea vomiting headache dizziness chest pain abdominal pain diarrhea - Exam Vitals: Temp Pulse Resp BP Pulse Ox 97.9 F 96 18 102/69 93 08/18/18 11:05 08/18/18 11:05 08/18/18 11:05 08/18/18 11:05 08/18/18 11:05 Exam: GEN: NAD, oxygen by nasal cannula CVS: RRR. S1, S2, No m/r/g RESP: Diminished with scattered wheezes. Bibasilar rales ABD: Soft, NT, ND, +BS EXT: 1/2+ edema-pretibial. 2+ DP. No rashes NEURO: No focal neurological deficit. - Assessment and Plan (1) COPD with acute exacerbation Current Visit: Yes Status: Acute Assessment and Plan: Severe restrictive ventilatory impairment due to morbid obesity .Patient is on chronic prednisone. Initially patient was on IV steroid and changed to prednisone 60 mg daily on 2018. Continue nebs, spirometry, oxygen supplementation. Patient follows pulmonologists Dr. Dinero on OPD basis- consulted him for appropriate plan of management. Patient has been complicated in managing his COPD and has had frequent admission in the hospital and last few months. Onboard respiratory therapist. Continue Mucomyst nebulizer with incentive spirometry. Continue oxygen supplementation and DuoNeb Patient has leukocytosis with left shift but no fever-most likely reactionary to his steroid as patient respiratory status is stable with no associated systemic sign and symptom chest pain worsening of shortness of breath cough, abdominal pain urine problem of diarrhea. Worsening of white count therefore Decreased prednisone dose 40 mg by mouth daily Repeat CBC tomorrow (2) Acute exacerbation of CHF (congestive heart failure) Current Visit: Yes Status: Acute Assessment and Plan: Initially started IV Lasix twice a day and Zaroxolyn . Patient has started to improve therefore decrease IV Lasix once daily but again worsening of shortness of breath therefore increased frequency of IV Lasix twice a day. Patient has been challenging in managing diuresis therefore consulted cardiology-not convinced that patient has heart failure. They also cleared that patient does not need pacemaker or ICD but there was planned by his primary melangeur operator for possible loop recorder insertion. Patient prefers to follow with electrophysiology as planned an outpatient later this week-. Cardiology signed off Discontinue IV Lasix and resumed home dose of diuretics. monitor I&O's. Says he has a dry weight of 370 pounds Last echo June 2018-EF 65%, mild LVEDD, grossly right ventricle widely dilated, mild pulmonary hypertension with RVSP 41 mmHg Patient has electrolyte imbalance with persistent hypokalemia therefore meta zolane stopped. Continue home dose of torsemide 40 mg by mouth twice a day. Potassium replacement and monitor this afternoon. Normal magnesium level. (3) Morbid obesity with BMI of 60.0-69.9, adult Current Visit: Yes Status: Chronic Assessment and Plan: Diet and exercise (4) Atrial fibrillation Current Visit: Yes Status: Acute Assessment and Plan: rate controlled. continue coumadin. INR 1.9. Pharmacy to dose Coumadin (5) Goals of care, counseling/discussion Current Visit: Yes Status: Acute Assessment and Plan: Concern for noncompliance especially for oxygen. Patient has multiple admission in past several months. Palliative care team was consulted as patient wanted to have further discussion about hospice option. Patient has been on transient home hospice care and took himself out. Talked to patient and he expressed desire for DNR CCA without intubation. Palliative care team on board and patient desire for home hospice. Possible plan to discharge patient possibly in one or 2 days after electrolyte correction and after having arrangement for home hospice to meet his requirements. And also monitoring white count . (6) DVT prophylaxis Current Visit: Yes Status: Acute Assessment and Plan: On warfarin. Therapeutic INR - Time Spent with Patient Total time spent is greater than 50% in coordination of care (as documented) at patient's floor/unit and/or counseling patient: 25 - 35 minutes Plan of Care Discussed with: patient Internal Medicine: Result - Labs CBC & Chem 7: 08/18/18 05:26 08/18/18 11:28 Labs: Short CBC 08/18/18 Range/Units 05:26 WBC 19.0 H (4.3-11.1) K/mcL Hgb 15.2 (12.9-16.9) g/dL Hct 46.1 (37.5-50.1) % Plt Count 236 (140-400) K/mcL Neutrophils # 12.1 H (1.6-8.9) K/mcL BMP 08/18/18 08/18/18 05:26 11:28 Sodium 133 L Potassium 2.3 L* D 2.6 L Chloride 79 L Carbon Dioxide 39 H BUN 65 H Creatinine 1.33 H Glucose 169 H Calcium 9.6 - ABG Interpretation ABG results: PT/INR, D-dimer PT 24.0 Seconds (9.4-12.1) H 08/18/18 05:26 Consult Discharge Plan - Plan Referrals: Fartun Quinones, SENIOR BUSINESS DEVELOPMENT MANAGER [Primary Care Provider] - (2) Acute exacerbation of CHF (congestive heart failure) Qualifiers: Heart failure type: diastolic Qualified Code(s): I50.33 - Acute on chronic diastolic (congestive) heart failure (4) Atrial fibrillation Qualifiers: Atrial fibrillation type: paroxysmal Qualified Code(s): I48.0 - Paroxysmal atrial fibrillation
[2018-08-18 17:39] LABS: Calcium 9.3 mg/dL (8.6-10.3); Potassium 3.4 mEq/L (3.5-5.1)
[2018-08-18] MEDS ORDERED: *HR* Warfarin 7.5 MG TABLET PO ONE (18:00)
--- NOTE | 2018-08-18 18:59 | Pulmonology Progress Note ---
Date of Encounter: 08/19/18 Time of Encounter: 18:00 Assessment and Plan (1) Acute and chronic respiratory failure Current Visit: Yes Status: Acute Patient responded well to diuretics and bronchodilators. With background history of diastolic heart failure, morbid obesity COPD, atrial fibrillation with on and off for a rapid ventricular response pulmonary hypertension all complicates this recurrent admissions. Patient will be deciding CODE STATUS by talking with his family and reinforced to make that decision what is appropriate for him to strongly recommended against intensive care management. 08/18 patient has DNR/DNI to use BiPAP at night increasing to symptoms over around in the house and he gets discharged and to watch his salt and water intake. Qualifiers: Respiratory failure complication: hypoxia Qualified Code(s): J96.21 - Acute and chronic respiratory failure with hypoxia (2) Afib Current Visit: No Status: Chronic Patient rate is controlled. Before discharge please optimize his rate control regimen. Qualifiers: Atrial fibrillation type: chronic Qualified Code(s): I48.2 - Chronic atrial fibrillation (3) COPD (chronic obstructive pulmonary disease) Current Visit: No Status: Chronic Patient has recurrent COPD exacerbation patient needs presentation is not only COPD is also the diastolic dysfunction each presentation his legs swells up and anasarca most of the presentation shortness of breath of not much cough and sputum production suggestive COPD exacerbation episodes of combined cardiac and pulmonary causes with secondary pulmonary hypertension with this class II and class III complicating his picture with reduced exercise tolerance. Patient wants to be comfort care with no aggressive measures with agree for some bronchodilators and diuretics patient might be discharged home with bronchodilators and diuretics with hospice backup will see him in as an outpa tient to optimize his regimen. So he can be symptomatically benefited [facility] might take over. to discharge home on chronic steroid therapy will see him in the clinic in [facility] Qualifiers: COPD type: unspecified COPD Qualified Code(s): J44.9 - Chronic obstructive pulmonary disease, unspecified (4) BECK (obstructive sleep apnea) Current Visit: No Status: Chronic Use BiPAP at night which will help in comfort measures also. (5) Acute on chronic diastolic (congestive) heart failure Current Visit: Yes Status: Acute Patient has combined diastolic heart failure and COPD complicating the presentation and also pulmonary hypertension is contributing. To continue diuresis as tolerated Subjective Principal diagnosis: acute exacerbation of COPD complicated by diastolic heart failure Interval history: Patient has no acute events overnight patient says he is feeling the same Objective PUL Vital signs: Last Vital Signs Temp 97.6 F 08/18/18 18:56 Pulse 92 08/18/18 18:56 Resp 15 08/18/18 18:56 BP 117/72 08/18/18 18:56 Pulse Ox 100 08/18/18 18:56 General appearance: no acute distress Effort: mildly labored Auscultation: bilateral: wheezes (Very minimal scattered wheezes) Cardiovascular: irregular rhythm normal mental status, non-focal exam Results - Laboratory Findings CBC and BMP: 08/18/18 05:26 08/18/18 16:57 PT/INR, D-dimer PT 24.0 Seconds (9.4-12.1) H 08/18/18 05:26 Abnormal lab findings: Abnormal lab results WBC 19.0 K/mcL (4.3-11.1) H 08/18/18 05:26 RDW 14.9 % (11.5-14.5) H 08/18/18 05:26 Neutrophils # 12.1 K/mcL (1.6-8.9) H 08/18/18 05:26 Monocytes # 2.2 K/mcL (0.0-1.3) H 08/18/18 05:26 PT 24.0 Seconds (9.4-12.1) H 08/18/18 05:26 Sodium 132 mEq/L (136-145) L 08/18/18 16:57 Potassium 3.4 mEq/L (3.5-5.1) L D 08/18/18 16:57 Chloride 81 mEq/L (98-107) L 08/18/18 16:57 Carbon Dioxide 35 mEq/L (23-29) H 08/18/18 16:57 BUN 71 mg/dL (8-23) H 08/18/18 16:57 Creatinine 1.86 mg/dL (0.70-1.30) H 08/18/18 16:57 Est GFR ( Amer) 44 (> 60) L 08/18/18 16:57 Est GFR (Non-Af Amer) 37 (> 60) L 08/18/18 16:57 BUN/Creatinine Ratio 38 (6-26) H 08/18/18 16:57 Glucose 238 mg/dL (70-105) H 08/18/18 16:57 POC Glucose 195 mg/dL (70-99) H 08/18/18 15:41 Calculated Osmolality 303 (280-300) H 08/18/18 16:57 - Clinical Findings Intake & Output: Intake & Output 08/18/18 08/18/18 08/18/18 07:59 15:59 23:59 Intake Total 0 / 0 480 / 480 0 / 0 Output Total 1600 / 1600 2750 / 2750 700 / 700 Balance -1600 / -1600 -2270 / -2270 -700 / -700 Weight 163.8 kg Consult Discharge Plan - Plan Referrals: Fartun Quinones, FILAMENT CUTTER [Primary Care Provider] -
[2018-08-18] MEDS: traZODone 50 MG TABLET PO SCH (20:56)
[2018-08-19] MEDS: Ipratropium/Albuterol Neb 3 ML IH SCH ×6 (00:01→20:52)
[2018-08-19] MEDS: Acetylcysteine 10% 2 ML INHSOL IH SCH ×4 (03:34→20:52)
[2018-08-19] MEDS: Budesonide/Formoterol 160/4.5 1 PUFF INH IH SCH ×2 (07:47→20:52)
[2018-08-19 07:56] LABS: Basophils # 0.1 K/mcL (0.0-0.2); Basophils % 0.3 %; Eosinophils % 0.1 %; Hematocrit 47.2 % (37.5-50.1); Hemoglobin 15.4 g/dL (12.9-16.9); Immature Granulocytes % 1.7 % (0-4); Lymphocytes # 4.3 K/mcL (0.6-4.6); Lymphocytes % 23.4 %; Mean Corpuscular HGB Conc 32.6 g/dL (31.6-35.5); Mean Corpuscular Hemoglobin 29.1 pg (28.0-33.3); Mean Corpuscular Volume 89.2 fL (83.0-100.0); Mean Platelet Volume 10.4 fL (9.4-12.4); Monocytes % 11.1 %; Neutrophils # 11.6 K/mcL (1.6-8.9); Platelet Count 233 K/mcL (140-400); Red Blood Count 5.29 M/mcL (4.19-5.50); Red Cell Distribution Width 14.8 % (11.5-14.5); Segmented Neutrophils % 63.4 %
[2018-08-19 08:00] LABS: INR 2.4; Prothrombin Time 27.1 Seconds (9.4-12.1)
[2018-08-19] MEDS: Insulin LISPRO 300 UNITS/3 ML VIAL SQ SCH ×4 (08:14→21:58)
[2018-08-19] MEDS: *HR* OxyCODONE/APAP 7.5/325 TABLET PO PRN (08:15)
[2018-08-19] MEDS: FLUoxetine 20 MG CAPSULE PO SCH (08:16)
[2018-08-19] MEDS: Gabapentin 300 MG CAPSULE PO SCH ×2 (08:16→21:53)
[2018-08-19] MEDS: *HR* LORazepam 0.5 MG TABLET PO SCH ×2 (08:16→21:52)
[2018-08-19] MEDS: predniSONE 20 MG TABLET PO SCH (08:16)
[2018-08-19] MEDS: Aspirin 81 MG TAB.CHEW PO SCH (08:16)
[2018-08-19 08:42] LABS: Calcium 9.5 mg/dL (8.6-10.3); Potassium 2.5 mEq/L (3.5-5.1)
[2018-08-19] MEDS ORDERED: Potassium Chloride 40 MEQ, Lidocaine 1% 2 ML in D5% in Water 500 ML IVPB ONE (08:58)
--- NOTE | 2018-08-19 12:38 | Internal Med Progress Note ---
Hospitalist Progress Note - Encounter Date of Encounter: 08/19/18 Time of Encounter: 09:50 - Subjective Interval History: No acute events overnight. Denies any worsening shortness of breath, cough, or sputum production. Leg swelling had significantly decreased - Exam Vitals: Temp Pulse Resp BP Pulse Ox 97.9 F 95 18 106/69 90 08/19/18 10:08 08/19/18 10:08 08/19/18 11:04 08/19/18 10:08 08/19/18 11:04 Exam: GEN: NAD, oxygen by nasal cannula CVS: RRR. S1, S2, No m/r/g RESP: Mostly clear to auscultation with occasional bibasilar rales ABD: Soft, NT, ND EXT: Pretibial leg swelling with pigmentation suggestive of chronic venous stasis. NEURO: No focal neurological deficit. - Assessment and Plan (1) COPD with acute exacerbation Current Visit: Yes Status: Acute Assessment and Plan: oxygen dependent COPD as well as on chronic steroid use. Complicated by severe restrictive ventilatory impairment due to morbid obesity improving, start steroid taper and will decrease by 10mg weekly until he goes back to his baseline of 10mg/day Patient has leukocytosis likely reactionary to his steroid continue bronchodilators (2) Acute exacerbation of CHF (congestive heart failure) Current Visit: Yes Status: Ruled-out Assessment and Plan: Patient has had normal EF on transthoracic echo and numerous normal BNPs prior also has chronic pretibial myxedema from Grave's disease doubtful that he has a true diagnosis of CHF, developed PRICE while on high dose of torsemide and metolazone will d/c diuretics and monitor Cr (3) PRICE (acute kidney injury) Current Visit: Yes Status: Acute Assessment and Plan: Likely due to high-dose of diuretics, has been having significant urine output for the last 4 days associated with hypokalemia and hypomagnesemia Cr 1.86 - 1.46 today, will monitor off diuretics hold off on IVF as well as his Cr is spontaneously improving replete electrolytes (4) Hypokalemia Current Visit: No Status: Resolved Assessment and Plan: Replete as above (5) Morbid obesity with BMI of 60.0-69.9, adult Current Visit: Yes Status: Chronic Assessment and Plan: Lifestyle modifications emphasized (6) Atrial fibrillation Current Visit: Yes Status: Chronic Assessment and Plan: rate controlled and anticoagulated with coumadin. INR 2.4, Pharmacy to dose Coumadin outpatient EP follow up for ?loop recorder (7) Goals of care, counseling/discussion Current Visit: Yes Status: Acute (8) DVT prophylaxis Current Visit: Yes Status: Acute Assessment and Plan: On warfarin. Therapeutic INR - Time Spent with Patient Total time spent is greater than 50% in coordination of care (as documented) at patient's floor/unit and/or counseling patient: 25 - 35 minutes Plan of Care Discussed with: patient Internal Medicine: Result - Labs CBC & Chem 7: 08/19/18 07:25 08/19/18 07:25 Labs: Short CBC 08/19/18 Range/Units 07:25 WBC 18.2 H (4.3-11.1) K/mcL Hgb 15.4 (12.9-16.9) g/dL Hct 47.2 (37.5-50.1) % Plt Count 233 (140-400) K/mcL Neutrophils # 11.6 H (1.6-8.9) K/mcL BMP 08/18/18 08/19/18 16:57 07:25 Sodium 132 L 134 L Potassium 3.4 L D 2.5 L* D Chloride 81 L 78 L Carbon Dioxide 35 H 41 H* BUN 71 H 73 H Creatinine 1.86 H 1.46 H Glucose 238 H 173 H Calcium 9.3 9.5 - ABG Interpretation ABG results: PT/INR, D-dimer PT 27.1 Seconds (9.4-12.1) H 08/19/18 07:25 Consult Discharge Plan - Plan Referrals: Fartun Quinones, SUPERINTENDENT LAUNDRY [Primary Care Provider] - (2) Acute exacerbation of CHF (congestive heart failure) Qualifiers: Heart failure type: diastolic Qualified Code(s): I50.33 - Acute on chronic diastolic (congestive) heart failure (6) Atrial fibrillation Qualifiers: Atrial fibrillation type: paroxysmal Qualified Code(s): I48.0 - Paroxysmal atrial fibrillation
--- NOTE | 2018-08-19 14:28 | Palliative Progress Note ---
Date of Encounter: 08/19/18 Time of Encounter: 11:00 - Assessment and plan (1) Dyspnea Current Visit: Yes Status: Acute Assessment and plan: Patient remains dyspneic He is receiving percocet about 3 doses a day. will change to Oxycodone 10 mg q4hrs prn fo pain and Dyspnea Qualifiers: Dyspnea type: shortness of breath Qualified Code(s): R06.02 - Shortness of breath; R06.00 - Dyspnea, unspecified; R06.01 - Orthopnea (2) Anxiety Current Visit: Yes Status: Acute Assessment and plan: Patient is anxious. Ativan 0.5mg TID in place and PRN. received 1 prn dose today. (3) COPD with acute exacerbation Current Visit: Yes Status: Acute Assessment and plan: Pulmonary appreciated, severe restrictive ventilatory impairment due to morbid obesity. continue management per primary team BiPAP at night and PRN, chronic steroids. (4) Goals of care, counseling/discussion Current Visit: Yes Status: Acute Assessment and plan: Patient is worried that his health holcomb not seem to be improving. He has an understanding that his COPD is end-stage, however, he still retaines some hope to be able to improve to a point that he can care for himself and his dog for a few more months. Discussed that his underlying COPD and CHF are not going to improve, but focus can be put in managing his symptoms to allow him to stay home. Patient is agreeable to home hospice, and referral was called to [facility], however he has not been optimal for discharge. Patient would like a meeting with his brother Jerson and his son Keny. Called Jerson ([phone]) and set meeting for tomorrow at 10am. Attempted to reach Keny, phone number [phone] is not active. Called Keny's [place] [phone], let voice mail with call back number. (5) Palliative care encounter Current Visit: Yes Status: Acute (6) Morbid obesity Current Visit: No Status: Chronic - Time Spent With Patient Total time spent is greater than 50% in coordination of care (as documented) at patient's floor/unit and/or counseling patient: 45 minutes - Subjective Interval history: Patient today is feeling more short of breath, and anxious. No overnight events. Potassium remains low, creatinine is improving. - Constitutional Vitals: Abnormal lab results WBC 18.2 K/mcL (4.3-11.1) H 08/19/18 07:25 RDW 14.8 % (11.5-14.5) H 08/19/18 07:25 Neutrophils # 11.6 K/mcL (1.6-8.9) H 08/19/18 07:25 Monocytes # 2.0 K/mcL (0.0-1.3) H 08/19/18 07:25 PT 27.1 Seconds (9.4-12.1) H 08/19/18 07:25 Sodium 134 mEq/L (136-145) L 08/19/18 07:25 Potassium 2.5 mEq/L (3.5-5.1) L* D 08/19/18 07:25 Chloride 78 mEq/L (98-107) L 08/19/18 07:25 Carbon Dioxide 41 mEq/L (23-29) H* 08/19/18 07:25 BUN 73 mg/dL (8-23) H 08/19/18 07:25 Creatinine 1.46 mg/dL (0.70-1.30) H 08/19/18 07:25 Est GFR ( Amer) 59 (> 60) L 08/19/18 07:25 Est GFR (Non-Af Amer) 48 (> 60) L 08/19/18 07:25 BUN/Creatinine Ratio 50 (6-26) H 08/19/18 07:25 Glucose 173 mg/dL (70-105) H 08/19/18 07:25 POC Glucose 195 mg/dL (70-99) H 08/18/18 15:41 Calculated Osmolality 304 (280-300) H 08/19/18 07:25 Exam: General appearance: Present: morbidly obese - Head Head exam: Present: normal inspection - Eye Eye exam: Present: normal appearance - Respiratory Respiratory exam: Present: decreased breath sounds. Absent: respiratory distress, wheezes, tachypnea - Cardiovascular Cardiovascular exam: Present: irregular rhythm, +S1, +S2. Absent: +S3, +S4 Additional comments: Regular rate. Distant heart sounds. - GI/Abdominal GI/Abdominal exam: Present: normal bowel sounds, soft. Absent: guarding, rebound, tenderness - Extremities Exam Extremities exam: Present: normal capillary refill, pedal edema. Absent: calf tenderness Additional comments: +1 b/l pitting edema in the lower extremities. Doralis pedis and posterior tibialis pulses intact and symmetrical b/l. - Neurological Exam Neurological exam: Present: alert, oriented X3, no focal deficits, strengths equal and symmetric throughout. Absent: facial droop, speech deficit - Psychiatric Psychiatric exam: Present: normal affect, normal mood Palliative Quality Palliative Quality: Screen for Code Status: Yes, Screen for Goals of Care: Yes, Screen for Pain: Yes, If Pain Regimen Started, Initiate Bowel Regimen: NA, Screen for Nausea/Vomitting: Yes Code Status: 08/10/18 17:20 Resuscitation Status: Active [RES] Routine Comment: Resuscitation Status: Full Code 08/15/18 10:23 DNR [Resuscitation Status: Active] [RES] Routine Comment: Resuscitation Status: DNR-Comfort Care-Arrest DNR [Resuscitation Status: Active] [RES] Routine Comment: Resuscitation Status: DNR-Comfort Care - Labs CBC & Chem 7: 08/19/18 07:25 08/19/18 07:25 Labs: Laboratory Results - last 24 hr 08/17/18 08/18/18 08/18/18 19:55 08:05 11:09 WBC RBC Hgb Hct MCV MCH MCHC RDW Plt Count MPV Immature Gran % Seg Neutrophils % Lymphocytes % Monocytes % Eosinophils % Basophils % Neutrophils # Lymphocytes # Monocytes # Eosinophils # Basophils # PT INR Sodium Potassium Chloride Carbon Dioxide BUN Creatinine Est GFR ( Amer) Est GFR (Non-Af Amer) BUN/Creatinine Ratio Glucose POC Glucose 254 H 155 H 204 H Calculated Osmolality Calcium 08/18/18 08/18/18 08/19/18 15:41 16:57 07:25 WBC RBC Hgb Hct MCV MCH MCHC RDW Plt Count MPV Immature Gran % Seg Neutrophils % Lymphocytes % Monocytes % Eosinophils % Basophils % Neutrophils # Lymphocytes # Monocytes # Eosinophils # Basophils # PT 27.1 H INR 2.4 Sodium 132 L Potassium 3.4 L D Chloride 81 L Carbon Dioxide 35 H BUN 71 H Creatinine 1.86 H Est GFR ( Amer) 44 L Est GFR (Non-Af Amer) 37 L BUN/Creatinine Ratio 38 H Glucose 238 H POC Glucose 195 H Calculated Osmolality 303 H Calcium 9.3 08/19/18 08/19/18 07:25 07:25 WBC 18.2 H RBC 5.29 Hgb 15.4 Hct 47.2 MCV 89.2 MCH 29.1 MCHC 32.6 RDW 14.8 H Plt Count 233 MPV 10.4 Immature Gran % 1.7 Seg Neutrophils % 63.4 Lymphocytes % 23.4 Monocytes % 11.1 Eosinophils % 0.1 Basophils % 0.3 Neutrophils # 11.6 H Lymphocytes # 4.3 Monocytes # 2.0 H Eosinophils # 0.0 Basophils # 0.1 PT INR Sodium 134 L Potassium 2.5 L* D Chloride 78 L Carbon Dioxide 41 H* BUN 73 H Creatinine 1.46 H Est GFR ( Amer) 59 L Est GFR (Non-Af Amer) 48 L BUN/Creatinine Ratio 50 H Glucose 173 H POC Glucose Calculated Osmolality 304 H Calcium 9.5 - ABG Interpretation ABG results: PT/INR, D-dimer PT 27.1 Seconds (9.4-12.1) H 08/19/18 07:25 Palliative Scale - Palliative Performance Scale How ambulatory is this patient?: Reduced What is patient's level of activity and evidence of disease?: Unable normal job/work, Significant disease How much self-care assistance does patient require?: Occasional assistance necessary How much oral intake does the patient have?: Normal What is this patient's level of consciousness?: Full Palliative Performance Score: 60 % Consult Discharge Plan - Plan Referrals: Fartun Quinones, RN CLINICAL QUALITY [Primary Care Provider] -
[2018-08-19] MEDS ORDERED: *HR* Warfarin 5 MG TABLET PO ONE (18:00)
[2018-08-19] MEDS ORDERED: *HR* Warfarin 2 MG TABLET PO ONE (18:00)
[2018-08-19] MEDS: traZODone 50 MG TABLET PO SCH (21:52)
[2018-08-19] MEDS: *HR* OxyCODONE Immed Rel 5 MG TABLET PO PRN (21:58)
[2018-08-20] MEDS: Ipratropium/Albuterol Neb 3 ML IH SCH ×7 (00:33→23:21)
[2018-08-20] MEDS: Acetylcysteine 10% 2 ML INHSOL IH SCH ×4 (04:09→20:45)
[2018-08-20 06:32] LABS: Basophils % 0.3 %; Eosinophils % 0.1 %; Hematocrit 42.3 % (37.5-50.1); Immature Granulocytes % 2.7 % (0-4); Lymphocytes % 21.6 %; Mean Corpuscular HGB Conc 32.2 g/dL (31.6-35.5); Mean Corpuscular Hemoglobin 29.2 pg (28.0-33.3); Mean Corpuscular Volume 90.8 fL (83.0-100.0); Mean Platelet Volume 10.7 fL (9.4-12.4); Monocytes # 1.4 K/mcL (0.0-1.3); Monocytes % 10.1 %; Platelet Count 165 K/mcL (140-400); Red Blood Count 4.66 M/mcL (4.19-5.50); Red Cell Distribution Width 14.6 % (11.5-14.5); Segmented Neutrophils % 65.2 %
[2018-08-20 06:33] LABS: Hemoglobin 13.6 g/dL (12.9-16.9)
[2018-08-20 06:44] LABS: INR 2.7; Prothrombin Time 30.7 Seconds (9.4-12.1)
[2018-08-20 06:59] LABS: BUN/Creatinine Ratio 52 (6-26); Blood Urea Nitrogen 51 mg/dL (8-23); Calcium 8.9 mg/dL (8.6-10.3); Carbon Dioxide 36 mEq/L (23-29); Chloride 88 mEq/L (98-107); Glucose 197 mg/dL (70-105); Magnesium 2.4 mg/dL (1.6-2.6); Osmolality,Calculated 295 (280-300); Sodium 133 mEq/L (136-145); eGFR For Non-African Americans > 60 (> 60)
[2018-08-20] MEDS: Budesonide/Formoterol 160/4.5 1 PUFF INH IH SCH ×2 (07:32→20:45)
[2018-08-20] MEDS: Gabapentin 300 MG CAPSULE PO SCH ×2 (07:57→20:20)
[2018-08-20] MEDS: Aspirin 81 MG TAB.CHEW PO SCH (07:58)
[2018-08-20] MEDS: predniSONE 10 MG TABLET PO SCH (07:58)
[2018-08-20] MEDS: *HR* LORazepam 0.5 MG TABLET PO SCH ×2 (07:58→20:20)
[2018-08-20] MEDS: FLUoxetine 20 MG CAPSULE PO SCH (07:58)
[2018-08-20] MEDS: Insulin LISPRO 300 UNITS/3 ML VIAL SQ SCH ×4 (07:59→20:23)
[2018-08-20] MEDS: Potassium Chloride Elixir 20 MEQ/15 ML UDC PO SCH ×2 (09:46→11:24)
--- NOTE | 2018-08-20 10:59 | Palliative Progress Note ---
Date of Encounter: 08/20/18 Time of Encounter: 09:00 - Assessment and plan (1) Dyspnea Current Visit: Yes Status: Acute Assessment and plan: Patient remains dyspneic continue oxygen support Oxycodone 10 mg q4hrs prn for pain and Dyspnea, received one dose yesterday. Instructed patient to ask for medication as needed. Will provide supply as patient is discharged. Qualifiers: Dyspnea type: shortness of breath Qualified Code(s): R06.02 - Shortness of breath; R06.00 - Dyspnea, unspecified; R06.01 - Orthopnea (2) Anxiety Current Visit: Yes Status: Acute Assessment and plan: Patient is anxious. Ativan 0.5mg TID in place and PRN. received 1 prn dose today. continue (3) COPD with acute exacerbation Current Visit: Yes Status: Acute Assessment and plan: Pulmonary appreciated, severe restrictive ventilatory impairment due to morbid obesity. continue management per primary team BiPAP at night and PRN, chronic steroids. continue inhalers (4) Goals of care, counseling/discussion Current Visit: Yes Status: Acute Assessment and plan: 45 minutes family meeting with patient, son Keny and brother Jerson. Gijmastt-oj-otr Saranya and grand-son were also present but [facility]. Discussed the current medical condition, overall poor prognosis, trajectory of illness, treatment options. Discussed that patient has the option to continue aggressive treatment which would mean he will spend most of his time in and out of the hospital, or he has the option of hospice at this point with the understanding that his disease is at end-stage, and for that reason he will focus on comfort only. Patient replied that he will rather stay home with his dog as much as possible, and for that reason he chose hospice care. He explained to the family his wishes, including DNRCC. Discussed that patient will need a POA, and patient and son confirmed that did to have POA papers at home that designated the son Keny as primary, and the brother Jerson is secondary. Forms will be provided to hospice. Patient's PPS is 60%, hence at this point he may be able to self care to a certain degree with the help of hospice, however down the road he will need more involvement in his care by the family. Patient emphasized that he does not want to go to a nursing facility at any time. Keny and Jerson were appropriately emotional, both agreeable with the plan. Emotional support was provided. Plan was discussed with primary hospitalist Dr. Hammond, plan is to discharge patient today on home hospice. Prescription written for BiPAP and oxygen, oxycodone, Ativan and bowel regimen. [facility] was called and updated. (5) Palliative care encounter Current Visit: Yes Status: Acute (6) Morbid obesity Current Visit: No Status: Chronic - Time Spent With Patient Total time spent is greater than 50% in coordination of care (as documented) at patient's floor/unit and/or counseling patient: 65 minutes. - Subjective Interval history: Patient today is feeling better than yesterday. He continued on BiPAP overnight. complaining of constipation and back pain. Creatinine is back to baseline. family at the bedside. - Constitutional Vitals: Abnormal lab results WBC 13.8 K/mcL (4.3-11.1) H 08/20/18 05:36 RDW 14.6 % (11.5-14.5) H 08/20/18 05:36 Neutrophils # 9.0 K/mcL (1.6-8.9) H 08/20/18 05:36 Monocytes # 1.4 K/mcL (0.0-1.3) H 08/20/18 05:36 PT 30.7 Seconds (9.4-12.1) H 08/20/18 05:36 Sodium 133 mEq/L (136-145) L 08/20/18 05:36 Potassium 3.0 mEq/L (3.5-5.1) L 08/20/18 05:36 Chloride 88 mEq/L (98-107) L 08/20/18 05:36 Carbon Dioxide 36 mEq/L (23-29) H 08/20/18 05:36 BUN 51 mg/dL (8-23) H 08/20/18 05:36 BUN/Creatinine Ratio 52 (6-26) H 08/20/18 05:36 Glucose 197 mg/dL (70-105) H 08/20/18 05:36 POC Glucose 249 mg/dL (70-99) H 08/18/18 20:39 Exam: General appearance: Present: morbidly obese - Head Head exam: Present: normal inspection - Eye Eye exam: Present: normal appearance - Respiratory Respiratory exam: Present: decreased breath sounds. Absent: respiratory distress, wheezes, tachypnea - Cardiovascular Cardiovascular exam: Present: irregular rhythm, +S1, +S2. Absent: +S3, +S4 Additional comments: Regular rate. Distant heart sounds. - GI/Abdominal GI/Abdominal exam: Present: normal bowel sounds, soft. Absent: guarding, rebound, tenderness - Extremities Exam Extremities exam: Present: normal capillary refill, pedal edema. Absent: calf tenderness Additional comments: +1 b/l pitting edema in the lower extremities. Doralis pedis and posterior tib ialis pulses intact and symmetrical b/l. - Neurological Exam Neurological exam: Present: alert, oriented X3, no focal deficits, strengths equal and symmetric throughout. Absent: facial droop, speech deficit - Psychiatric Psychiatric exam: Present: depressed mood Palliative Quality Palliative Quality: Screen for Code Status: Yes, Screen for Goals of Care: Yes, Screen for Pain: Yes, If Pain Regimen Started, Initiate Bowel Regimen: NA, Screen for Nausea/Vomitting: Yes Code Status: 08/10/18 17:20 Resuscitation Status: Active [RES] Routine Comment: Resuscitation Status: Full Code 08/15/18 10:23 DNR [Resuscitation Status: Active] [RES] Routine Comment: Resuscitation Status: DNR-Comfort Care-Arrest DNR [Resuscitation Status: Active] [RES] Routine Comment: Resuscitation Status: DNR-Comfort Care - Labs CBC & Chem 7: 08/20/18 05:36 08/20/18 05:36 Labs: Laboratory Results - last 24 hr 08/18/18 08/20/18 08/20/18 20:39 05:36 05:36 WBC RBC Hgb Hct MCV MCH MCHC RDW Plt Count MPV Immature Gran % Seg Neutrophils % Lymphocytes % Monocytes % Eosinophils % Basophils % Neutrophils # Lymphocytes # Monocytes # Eosinophils # Basophils # PT 30.7 H INR 2.7 Sodium 133 L Potassium 3.0 L Chloride 88 L Carbon Dioxide 36 H BUN 51 H Creatinine 0.98 Est GFR ( Amer) > 60 Est GFR (Non-Af Amer) > 60 BUN/Creatinine Ratio 52 H Glucose 197 H POC Glucose 249 H Calculated Osmolality 295 Calcium 8.9 Magnesium 2.4 08/20/18 05:36 WBC 13.8 H RBC 4.66 Hgb 13.6 D Hct 42.3 MCV 90.8 MCH 29.2 MCHC 32.2 RDW 14.6 H Plt Count 165 MPV 10.7 Immature Gran % 2.7 Seg Neutrophils % 65.2 Lymphocytes % 21.6 Monocytes % 10.1 Eosinophils % 0.1 Basophils % 0.3 Neutrophils # 9.0 H Lymphocytes # 3.0 Monocytes # 1.4 H Eosinophils # 0.0 Basophils # 0.0 PT INR Sodium Potassium Chloride Carbon Dioxide BUN Creatinine Est GFR ( Amer) Est GFR (Non-Af Amer) BUN/Creatinine Ratio Glucose POC Glucose Calculated Osmolality Calcium Magnesium - ABG Interpretation ABG results: PT/INR, D-dimer PT 30.7 Seconds (9.4-12.1) H 08/20/18 05:36 Palliative Scale - Palliative Performance Scale How ambulatory is this patient?: Reduced What is patient's level of activity and evidence of disease?: Unable normal job/work, Significant disease How much self-care assistance does patient require?: Occasional assistance nece ssary How much oral intake does the patient have?: Normal What is this patient's level of consciousness?: Full Palliative Performance Score: 60 % Consult Discharge Plan - Plan Referrals: Fartun Quinones, CERTIFIED COURT/MEDICAL INTERPRETER [Primary Care Provider] -
--- NOTE | 2018-08-20 11:45 | Discharge Summary ---
- NOTES TO OUTPATIENT PROVIDER Notes to Outpatient Provider: Discharged to home hospice. Diuretics remain on hold as the diagnosis of CHF is unlikely and was causing PRICE with hypokalemia for him. Follow up BMP in 5 days and replete potassium as needed. Orders not resulted at time of discharge: Pending orders 08/16/18 08:56 Bedside Spirometry Evaluation [EVAL] Routine 08/21/18 04:00 PT/INR [Prothrombin Time INR] [COAG] AM 0400 08/22/18 04:00 PT/INR [Prothrombin Time INR] [COAG] AM 0400 08/23/18 04:00 PT/INR [Prothrombin Time INR] [COAG] AM 0400 08/24/18 04:00 PT/INR [Prothrombin Time INR] [COAG] AM 0400 Date of Encounter: 08/20/18 Time of Encounter: 08:00 - Discharge Diagnosis (1) COPD with acute exacerbation Priority: Primary Status: Acute (2) Acute exacerbation of CHF (congestive heart failure) Priority: Secondary Status: Ruled-out Qualifiers: Heart failure type: diastolic Qualified Code(s): I50.33 - Acute on chronic diastolic (congestive) heart failure (3) PRICE (acute kidney injury) Priority: Secondary Status: Acute (4) Hypokalemia Priority: Secondary Status: Resolved (5) Morbid obesity with BMI of 60.0-69.9, adult Priority: Secondary Status: Chronic (6) Atrial fibrillation Priority: Secondary Status: Chronic Qualifiers: Atrial fibrillation type: paroxysmal Qualified Code(s): I48.0 - Paroxysmal atrial fibrillation (7) Goals of care, counseling/discussion Priority: Secondary Status: Acute (8) DVT prophylaxis Priority: Secondary Status: Acute Hospital course: Mr. Davila is a 63 year old male with history of oxygen and steroid dependent COPD, morbid obesity, atrial fibrillation, was admitted for acute exacerbation of COPD. There was initially a concern of decompensated heart failure but automotive brake specialist deemed that he does not have a diagnosis of CHF to begin with. In fact, torsemide that he was taking at home caused PRICE during his admission associated with hypokalemia. Symptomatically improved with steroid, bronchodilators and extensive discussion with palliative care team took place during his stay. He will be discharged home with hospice and torsemide was d/hien as it was deemed more harmful than serving him any benefits. Potassium supplement was adjusted and will need to be followed up with BMP in 5 days. FOllow up in his usual anticoagulation clinic if desires to as he is transitioned to hospice care. He is to complete tapering course of steroids. Discharge discussed with: patient, family, nurse, pmo consultant - Time Spent with Patient Total time spent providing and/or coordinating discharge services: 36 mins - Discharge Medications Prescriptions: New LORazepam [Ativan] 0.5 mg PO TID 4 Days #12 tablet OxyCODONE Immed Rel [Roxicodone 10 MG] 10 mg PO Q6H PRN 3 Days #12 tab PRN Reason: Dyspnea Sennosides/Docusate Sodium [Senna Plus] 2 each PO BID #12 tablet predniSONE [PredniSONE] 30 mg PO DAILY #32 tablet Continue Omeprazole [PriLOSEC] 20 mg PO DAILY Docusate Sodium [Stool Softener] 100 mg PO BID Pentoxifylline [TRENtal] 400 mg PO BID Nitroglycerin [Nitrostat] 0.4 mg SL Q5M PRN PRN Reason: Chest Pain Metformin HCl [Glucophage] 1,000 mg PO BID Cyclobenzaprine [Flexeril] 10 mg PO QAM Budesonide/Formoterol 160/4.5 [Symbicort 160/4.5] 2 puff IH BIDR traZODone [TraZODone] 50 mg PO HS #0 tablet Levothyroxine Sodium [Levoxyl] 275 mcg PO DAILY hydrOXYzine HCl [Hydroxyzine HCl] 25 mg PO BID PRN PRN Reason: Anxiety Gabapentin [Neurontin] 600 mg PO BID Atorvastatin [Lipitor] 40 mg PO HS FLUoxetine HCl [Prozac] 20 mg PO QAM Aspirin 81 mg PO DAILY Cyclobenzaprine [Flexeril] 20 mg PO HS Ipratropium/Albuterol Neb [Duoneb] 3 ml IH Q4HR PRN PRN Reason: SOB/WHEEZE Warfarin [Coumadin] 2 mg PO 1800 Warfarin [Coumadin] 5 mg PO 1800 Changed Potassium Chloride [K-Tab ER] 40 meq PO BID 10 Days #40 tablet.er Discontinued Oxycodone HCl/Acetaminophen [Percocet 7.5-325 mg Tablet] 1 tab PO Q6H PRN PRN Reason: Pain LORazepam [Ativan] 0.5 mg PO Q3H PRN PRN Reason: Anxiety predniSONE [PredniSONE] 10 mg PO DAILY Torsemide [Demadex] 40 mg PO BID Home Medications: Docusate Sodium [Stool Softener] 100 mg PO BID 08/04/16 [History] Metformin HCl [Glucophage] 1,000 mg PO BID 08/04/16 [History] Nitroglycerin [Nitrostat] 0.4 mg SL Q5M PRN 08/04/16 [History] Omeprazole [PriLOSEC] 20 mg PO DAILY 08/04/16 [History] Pentoxifylline [TRENtal] 400 mg PO BID 08/04/16 [History] Budesonide/Formoterol 160/4.5 [Symbicort 160/4.5] 2 puff IH BIDR 08/28/17 [History] Cyclobenzaprine [Flexeril] 10 mg PO QAM 08/28/17 [History] traZODone [TraZODone] 50 mg PO HS #0 tablet 09/13/17 [Rx] Levothyroxine Sodium [Levoxyl] 275 mcg PO DAILY 12/12/17 [History] hydrOXYzine HCl [Hydroxyzine HCl] 25 mg PO BID PRN 02/21/18 [History] Gabapentin [Neurontin] 600 mg PO BID 04/29/18 [History] Aspirin 81 mg PO DAILY 07/05/18 [History] Atorvastatin [Lipitor] 40 mg PO HS 07/05/18 [History] FLUoxetine HCl [Prozac] 20 mg PO QAM 07/05/18 [History] Cyclobenzaprine [Flexeril] 20 mg PO HS 08/10/18 [History] Ipratropium/Albuterol Neb [Duoneb] 3 ml IH Q4HR PRN 08/10/18 [History] Warfarin [Coumadin] 2 mg PO 1800 08/10/18 [History] Warfarin [Coumadin] 5 mg PO 1800 08/10/18 [History] LORazepam [Ativan] 0.5 mg PO TID 4 Days #12 tablet 08/20/18 [Rx] OxyCODONE Immed Rel [Roxicodone 10 MG] 10 mg PO Q6H PRN 3 Days #12 tab 08/20/18 [Rx] Potassium Chloride [K-Tab ER] 40 meq PO BID 10 Days #40 tablet.er 08/20/18 [Rx] Sennosides/Docusate Sodium [Senna Plus] 2 each PO BID #12 tablet 08/20/18 [Rx] predniSONE [PredniSONE] 30 mg PO DAILY #32 tablet 08/20/18 [Rx] Allergies/Adverse Reactions: Allergy/AdvReac Type Severity Reaction Status Date / Time Amoxicillin [From Augmentin] Allergy See Verified 08/10/18 14:00 Comments clavulanic acid Allergy See Verified 08/10/18 14:00 [From Augmentin] Comments meperidine [From Demerol] Allergy See Verified 08/10/18 14:00 Comments sulfamethoxazole Allergy Rash Verified 08/10/18 14:00 [From Bactrim] trimethoprim [From Bactrim] Allergy Rash Verified 08/10/18 14:00 baclofen AdvReac See Verified 08/10/18 14:00 Comments Date of admission: 08/11/18 17:25 Primary care physician: Fartun Quinones CNP Consults: 08/10/18 19:02 Consult to Physical Therapy [CONS] Routine Comment: Evaluate, develop and implement POC Reason for Consult: weakness Does patient have active BEDREST order?: No Is patient medically & hemodynamically stable?: Yes Patient assessed for mobility or mobilized this visit?: No 08/10/18 22:31 Consult to Leather Currier [CONS] Routine Reason for SW Consult: financial concerns 08/12/18 09:45 Consult to Physical Therapy [CONS] Routine Comment: Evaluate, develop and implement POC Reason for Consult: PT eval Does patient have active BEDREST order?: No Is patient medically & hemodynamically stable?: Yes 08/13/18 09:35 Consult to Nurse Navigator [CONS] Routine Comment: chf, copd 08/14/18 11:17 Consult to Palliative Care [CONS] Routine Comment: Consulting Provider: [facility] [place] Reason for Consult: Has been on home hospice and second opinion-history COPD and multiple comorbidities Call Completed: Yes 08/16/18 08:42 Consult to Cardiology [CONS] Routine Comment: Consulting Provider: Cardiology Karen Reason for Consult: CHF management-complicated Call Completed: Yes 08/16/18 08:52 Consult to Pulmonology [CONS] Routine Consulting Provider: [facility] Karen Reason for Consult: COPD management-complicated patient Call Completed: Yes - Constitutional Vitals: Temp Pulse Resp BP Pulse Ox 99.4 F 96 16 132/85 93 08/20/18 10:00 08/20/18 10:00 08/20/18 11:06 08/20/18 10:00 08/20/18 11:06 Exam: GEN: NAD, oxygen by nasal cannula CVS: RRR. S1, S2, No m/r/g RESP: Mostly clear to auscultation with occasional bibasilar rales ABD: Soft, NT, ND EXT: Pretibial leg swelling with pigmentation suggestive of chronic venous stasis. NEURO: No focal neurological deficit. - Patient Status Disposition: Hospice - Home Condition: Serious - Discharge Instructions Instructions: Acute Respiratory Distress Syndrome (DC), Heart Failure (DC), Anxiety (DC), Chronic Obstructive Pulmonary Disease (DC), Atrial Fibrillation (DC) Follow Up With: Fartun Quinones, METAL ANNEALER [Primary Care Provider] - - Diet and Activity Activity: resume usual activities as tolerated Diet: diabetic diet, low salt diet
--- NOTE | 2018-08-20 15:35 | Physician Discharge Referral ---
Home Health/Hosp Referral Info Transfer to: Hospice - Diagnosis (1) COPD with acute exacerbation Priority: Primary Status: Acute (2) Acute exacerbation of CHF (congestive heart failure) Priority: Secondary Status: Ruled-out (3) PRICE (acute kidney injury) Priority: Secondary Status: Acute (4) Hypokalemia Priority: Secondary Status: Resolved (5) Morbid obesity with BMI of 60.0-69.9, adult Priority: Secondary Status: Chronic (6) Atrial fibrillation Priority: Secondary Status: Chronic (7) Goals of care, counseling/discussion Priority: Secondary Status: Acute (8) DVT prophylaxis Priority: Secondary Status: Acute - Respiratory Orders Smoking Cessation: Smoking cessation has been advised. For more information, call the [place] Tobacco Quit Line at 9-976-QXJW-NOW. - Services Needed Following services are medically necessary services: Nursing, Home Health Aide - Transfer Medications Prescriptions: LORazepam [Ativan] 0.5 mg PO TID 4 Days #12 tablet OxyCODONE Immed Rel [Roxicodone 10 MG] 10 mg PO Q6H PRN 3 Days #12 tab PRN Reason: Dyspnea Potassium Chloride [K-Tab ER] 40 meq PO BID 10 Days #40 tablet.er predniSONE [PredniSONE] 30 mg PO DAILY #32 tablet Sennosides/Docusate Sodium [Senna Plus] 2 each PO BID #12 tablet Home Medications: Docusate Sodium [Stool Softener] 100 mg PO BID 08/04/16 [History] Metformin HCl [Glucophage] 1,000 mg PO BID 08/04/16 [History] Nitroglycerin [Nitrostat] 0.4 mg SL Q5M PRN 08/04/16 [History] Omeprazole [PriLOSEC] 20 mg PO DAILY 08/04/16 [History] Pentoxifylline [TRENtal] 400 mg PO BID 08/04/16 [History] Budesonide/Formoterol 160/4.5 [Symbicort 160/4.5] 2 puff IH BIDR 08/28/17 [Histo ry] Cyclobenzaprine [Flexeril] 10 mg PO QAM 08/28/17 [History] traZODone [TraZODone] 50 mg PO HS #0 tablet 09/13/17 [Rx] Levothyroxine Sodium [Levoxyl] 275 mcg PO DAILY 12/12/17 [History] hydrOXYzine HCl [Hydroxyzine HCl] 25 mg PO BID PRN 02/21/18 [History] Gabapentin [Neurontin] 600 mg PO BID 04/29/18 [History] Aspirin 81 mg PO DAILY 07/05/18 [History] Atorvastatin [Lipitor] 40 mg PO HS 07/05/18 [History] FLUoxetine HCl [Prozac] 20 mg PO QAM 07/05/18 [History] Cyclobenzaprine [Flexeril] 20 mg PO HS 08/10/18 [History] Ipratropium/Albuterol Neb [Duoneb] 3 ml IH Q4HR PRN 08/10/18 [History] Warfarin [Coumadin] 2 mg PO 1800 08/10/18 [History] Warfarin [Coumadin] 5 mg PO 1800 08/10/18 [History] LORazepam [Ativan] 0.5 mg PO TID 4 Days #12 tablet 08/20/18 [Rx] OxyCODONE Immed Rel [Roxicodone 10 MG] 10 mg PO Q6H PRN 3 Days #12 tab 08/20/18 [Rx] Potassium Chloride [K-Tab ER] 40 meq PO BID 10 Days #40 tablet.er 08/20/18 [Rx] Sennosides/Docusate Sodium [Senna Plus] 2 each PO BID #12 tablet 08/20/18 [Rx] predniSONE [PredniSONE] 30 mg PO DAILY #32 tablet 08/20/18 [Rx] Allergies/Adverse Reactions: Allergy/AdvReac Type Severity Reaction Status Date / Time Amoxicillin [From Augmentin] Allergy See Verified 08/10/18 14:00 Comments clavulanic acid Allergy See Verified 08/10/18 14:00 [From Augmentin] Comments meperidine [From Demerol] Allergy See Verified 08/10/18 14:00 Comments sulfamethoxazole Allergy Rash Verified 08/10/18 14:00 [From Bactrim] trimethoprim [From Bactrim] Allergy Rash Verified 08/10/18 14:00 baclofen AdvReac See Verified 08/10/18 14:00 Comments Certification: Further, I certify that my clinical findings support that this patient is homebound (i.e. absences from home require considerable and taxing effort and are for medical reasons or scientologist services or infrequently or short duration when for other reasons) because: Homebound Reason: Patient requires assistance of a person or device to safely leave home, Severity of cardiac or pulmonary status limits activity tolerance Attestation: My signature below is to certify that this patient is under my care and that I, or nurse practitioner, or a physician's parking assistant working with me, has a [id number] encounter with this patient.
[2018-08-20] MEDS ORDERED: *HR* Warfarin 2 MG TABLET PO SCH (18:00)
[2018-08-20] MEDS ORDERED: *HR* Warfarin 5 MG TABLET PO SCH (18:00)
[2018-08-20] MEDS: traZODone 50 MG TABLET PO SCH (20:20)
[2018-08-20] MEDS: *HR* OxyCODONE Immed Rel 5 MG TABLET PO PRN (20:21)
[2018-08-21] MEDS: Acetylcysteine 10% 2 ML INHSOL IH SCH ×3 (03:32→15:21)
[2018-08-21] MEDS: Ipratropium/Albuterol Neb 3 ML IH SCH ×4 (03:32→15:21)
[2018-08-21] MEDS: *HR* OxyCODONE Immed Rel 5 MG TABLET PO PRN (05:46)
[2018-08-21 06:37] LABS: INR 3.4; Prothrombin Time 38.8 Seconds (9.4-12.1)
[2018-08-21 06:52] LABS: BUN/Creatinine Ratio 48 (6-26); Blood Urea Nitrogen 38 mg/dL (8-23); Calcium 8.5 mg/dL (8.6-10.3); Carbon Dioxide 33 mEq/L (23-29); Chloride 93 mEq/L (98-107); Glucose 164 mg/dL (70-105); Osmolality,Calculated 291 (280-300); Potassium 3.7 mEq/L (3.5-5.1); Sodium 134 mEq/L (136-145); eGFR For Non-African Americans > 60 (> 60)
[2018-08-21] MEDS: Budesonide/Formoterol 160/4.5 1 PUFF INH IH SCH (08:04)
[2018-08-21] MEDS: Insulin LISPRO 300 UNITS/3 ML VIAL SQ SCH ×2 (08:47→12:20)
[2018-08-21] MEDS: Gabapentin 300 MG CAPSULE PO SCH (09:38)
[2018-08-21] MEDS: *HR* LORazepam 0.5 MG TABLET PO SCH (09:38)
[2018-08-21] MEDS: Aspirin 81 MG TAB.CHEW PO SCH (09:38)
[2018-08-21] MEDS: predniSONE 10 MG TABLET PO SCH (09:39)
[2018-08-21] MEDS: FLUoxetine 20 MG CAPSULE PO SCH (09:39)
[2018-08-21 10:31] VITALS: BP 113/72
--- NOTE | 2018-08-21 12:56 | Internal Med Progress Note ---
Hospitalist Progress Note - Encounter Date of Encounter: 08/21/18 Time of Encounter: 11:15 - Subjective Interval History: Please see the addendum on discharge summary for the interim event. Denies any chest pain, focal weakness/numbness, blurring of vision, or headache. - Exam Vitals: Temp Pulse Resp BP Pulse Ox 97.8 F 90 18 113/72 93 08/21/18 10:28 08/21/18 10:28 08/21/18 11:03 08/21/18 10:28 08/21/18 11:03 Exam: GEN: NAD, oxygen by nasal cannula CVS: RRR. S1, S2, No m/r/g RESP: Mostly clear to auscultation with occasional bibasilar rales ABD: Soft, NT, ND EXT: Pretibial leg swelling with pigmentation suggestive of chronic venous stasis. NEURO: No focal neurological deficit. - Assessment and Plan (1) COPD with acute exacerbation Current Visit: Yes Status: Acute (2) Acute exacerbation of CHF (congestive heart failure) Current Visit: Yes Status: Ruled-out (3) PRICE (acute kidney injury) Current Visit: Yes Status: Acute (4) Hypokalemia Current Visit: No Status: Resolved (5) Morbid obesity with BMI of 60.0-69.9, adult Current Visit: Yes Status: Chronic (6) Atrial fibrillation Current Visit: Yes Status: Chronic (7) Goals of care, counseling/discussion Current Visit: Yes Status: Acute (8) DVT prophylaxis Current Visit: Yes Status: Acute - Summary of Assessment and Plan Summary of Assessment and Plan: Mr. Davila is a 63 year old male with history of oxygen and steroid dependent COPD, morbid obesity, atrial fibrillation, was admitted for acute exacerbation of COPD. Symptomatically improved with steroid, bronchodilators and extensive d iscussion with palliative care team took place during his stay. There was initially a concern of decompensated heart failure but hand packer/packager deemed that he does not have a diagnosis of CHF to begin with. In fact, torsemide that he was taking at home caused PRICE during his admission, associated with hypokalemia. His Cr and potassium eventually improved after cessation of diuretics. He will be discharged home with hospice and torsemide was d/hien as it was deemed more harmful than serving him any benefits. Potassium supplement was adjusted and will need to be followed up with BMP in 5 days. FOllow up in his usual anticoagulation clinic if desires to as he is transitioned to hospice care. He is to complete tapering course of steroids. He had an episode of accidental fall on 08/[address] head and L shoulder XR and was monitored overnight as he is anticoagulated. He will be discharged to home hospice as planned on 08/21. - Time Spent with Patient Total time spent is greater than 50% in coordination of care (as documented) at patient's floor/unit and/or counseling patient: 25 - 35 minutes Plan of Care Discussed with: patient (discussed with family, RN, and CM) Internal Medicine: Result - Labs CBC & Chem 7: 08/20/18 05:36 08/21/18 06:09 Labs: BMP 08/21/18 06:09 Sodium 134 L Potassium 3.7 Chloride 93 L Carbon Dioxide 33 H BUN 38 H Creatinine 0.80 Glucose 164 H Calcium 8.5 L - ABG Interpretation ABG results: PT/INR, D-dimer PT 38.8 Seconds (9.4-12.1) H 08/21/18 06:09 - Impressions Impressions Head CT 08/20/18 15:35 IMPRESSION: 1.No acute intracranial abnormality. D/ / Den Kate MD / Den Kate MD Interpreting Provider: Den Kate MD Shoulder X-Ray 08/20/18 15:35 IMPRESSION: No acute abnormality of the left shoulder D/ / Matthew Bunch MD / Matthew Bunch MD Interpreting Provider: Matthew Bunch MD Consult Discharge Plan - Plan Instructions: Heart Failure (DC), Atrial Fibrillation (DC), Acute Respiratory Distress Syndrome (DC), How to Stop Smoking (DC), Chronic Obstructive Pulmonary Disease (DC), Anxiety (DC) Referrals: Fartun Quinones, GRINDER SET UP OPERATOR [Primary Care Provider] - Prescriptions: Ipratropium/Albuterol Neb [Duoneb] 3 ml IH Q4HR PRN #90 inhsol PRN Reason: SOB/WHEEZE LORazepam [Ativan] 0.5 mg PO TID 4 Days #12 tablet OxyCODONE Immed Rel [Roxicodone 10 MG] 10 mg PO Q6H PRN 3 Days #12 tab PRN Reason: Dyspnea Potassium Chloride [K-Tab ER] 40 meq PO BID 10 Days #40 tablet.er predniSONE [PredniSONE] 30 mg PO DAILY #32 tablet Sennosides/Docusate Sodium [Senna Plus] 2 each PO BID #12 tablet (2) Acute exacerbation of CHF (congestive heart failure) Qualifiers: Heart failure type: diastolic Qualified Code(s): I50.33 - Acute on chronic diastolic (congestive) heart failure (6) Atrial fibrillation Qualifiers: Atrial fibrillation type: paroxysmal Qualified Code(s): I48.0 - Paroxysmal atrial fibrillation
--- NOTE | 2018-08-21 14:56 | Physician Discharge Referral ---
Home Health/Hosp Referral Info Transfer to: Home Health Provider in Charge Post Discharge: PCP - Diagnosis (1) COPD with acute exacerbation Priority: Primary Status: Acute (2) Acute exacerbation of CHF (congestive heart failure) Priority: Secondary Status: Ruled-out (3) PRICE (acute kidney injury) Priority: Secondary Status: Acute (4) Hypokalemia Priority: Secondary Status: Resolved (5) Morbid obesity with BMI of 60.0-69.9, adult Priority: Secondary Status: Chronic (6) Atrial fibrillation Priority: Secondary Status: Chronic (7) Goals of care, counseling/discussion Priority: Secondary Status: Acute (8) DVT prophylaxis Priority: Secondary Status: Acute - Respiratory Orders Oxygen / L per min (3L continuous) Smoking Cessation: Smoking cessation has been advised. For more information, call the [employer] Quit Line at 5-585-WWDX-NOW. - Services Needed Following services are medically necessary services: Nursing, Home Health Aide, Physical Therapy, Occupational Therapy - Transfer Medications Prescriptions: Ipratropium/Albuterol Neb [Duoneb] 3 ml IH Q4HR PRN #90 inhsol PRN Reason: SOB/WHEEZE LORazepam [Ativan] 0.5 mg PO TID 4 Days #12 tablet OxyCODONE Immed Rel [Roxicodone 10 MG] 10 mg PO Q6H PRN 3 Days #12 tab PRN Reason: Dyspnea Potassium Chloride [K-Tab ER] 40 meq PO BID 10 Days #40 tablet.er predniSONE [PredniSONE] 30 mg PO DAILY #32 tablet Sennosides/Docusate Sodium [Senna Plus] 2 each PO BID #12 tablet Home Medications: Docusate Sodium [Stool Softener] 100 mg PO BID 08/04/16 [History] Metformin HCl [Glucophage] 1,000 mg PO BID 08/04/16 [History] Nitroglycerin [Nitrostat] 0.4 mg SL Q5M PRN 08/04/16 [History] Omeprazole [PriLOSEC] 20 mg PO DAILY 08/04/16 [History] Pentoxifylline [TRENtal] 400 mg PO BID 08/04/16 [History] Budesonide/Formoterol 160/4.5 [Symbicort 160/4.5] 2 puff IH BIDR 08/28/17 [History] Cyclobenzaprine [Flexeril] 10 mg PO QAM 08/28/17 [History] traZODone [TraZODone] 50 mg PO HS #0 tablet 09/13/17 [Rx] Levothyroxine Sodium [Levoxyl] 275 mcg PO DAILY 12/12/17 [History] hydrOXYzine HCl [Hydroxyzine HCl] 25 mg PO BID PRN 02/21/18 [History] Gabapentin [Neurontin] 600 mg PO BID 04/29/18 [History] Aspirin 81 mg PO DAILY 07/05/18 [History] Atorvastatin [Lipitor] 40 mg PO HS 07/05/18 [History] FLUoxetine HCl [Prozac] 20 mg PO QAM 07/05/18 [History] Cyclobenzaprine [Flexeril] 20 mg PO HS 08/10/18 [History] Warfarin [Coumadin] 2 mg PO 1800 08/10/18 [History] Warfarin [Coumadin] 5 mg PO 1800 08/10/18 [History] LORazepam [Ativan] 0.5 mg PO TID 4 Days #12 tablet 08/20/18 [Rx] OxyCODONE Immed Rel [Roxicodone 10 MG] 10 mg PO Q6H PRN 3 Days #12 tab 08/20/18 [Rx] Potassium Chloride [K-Tab ER] 40 meq PO BID 10 Days #40 tablet.er 08/20/18 [Rx] Sennosides/Docusate Sodium [Senna Plus] 2 each PO BID #12 tablet 08/20/18 [Rx] predniSONE [PredniSONE] 30 mg PO DAILY #32 tablet 08/20/18 [Rx] Ipratropium/Albuterol Neb [Duoneb] 3 ml IH Q4HR PRN #90 inhsol 08/21/18 [Rx] Allergies/Adverse Reactions: Allergy/AdvReac Type Severity Reaction Status Date / Time Amoxicillin [From Augmentin] Allergy See Verified 08/10/18 14:00 Comments clavulanic acid Allergy See Verified 08/10/18 14:00 [From Augmentin] Comments meperidine [From Demerol] Allergy See Verified 08/10/18 14:00 Comments sulfamethoxazole Allergy Rash Verified 08/10/18 14:00 [From Bactrim] trimethoprim [From Bactrim] Allergy Rash Verified 08/10/18 14:00 baclofen AdvReac See Verified 08/10/18 14:00 Comments Certification: Further, I certify that my clinical findings support that this patient is homebound (i.e. absences from home require considerable and taxing effort and are for medical reasons or [employer] or infrequently or short duration when for other reasons) because: Homebound Reason: Patient requires assistance of a person or device to safely leave home Attestation: My signature below is to certify that this patient is under my care and that I, or nurse practitioner, or a physician's hearing and speech assistant working with me, has a [id number] encounter with this patient.
[2018-08-28] MEDS ORDERED: predniSONE 20 MG TABLET PO SCH (09:00)
== END 2018-08-21 17:11 | disposition hospice, home (50) | DRG 190 ==
LOC: 3ANU 13:25 → EMEROOARM 13:25 → 3ANU 21:10 → SUATTDRO 08-11 17:25
PROVIDERS: ADMIT Hospitalist; ATTEND Internal Medicine

== ENCOUNTER 2018-10-20 18:01 | Inpatient (IN) ==
[2018-10-20 19:27] LABS: Basophils % 0.4 %; Eosinophils # 0.1 K/mcL (0.0-0.6); Eosinophils % 0.5 %; Hematocrit 42.7 % (37.5-50.1); Hemoglobin 13.3 g/dL (12.9-16.9); Immature Granulocytes % 0.6 % (0-4); Lymphocytes % 36.5 %; Mean Corpuscular HGB Conc 31.1 g/dL (31.6-35.5); Mean Corpuscular Hemoglobin 28.8 pg (28.0-33.3); Mean Corpuscular Volume 92.4 fL (83.0-100.0); Mean Platelet Volume 10.3 fL (9.4-12.4); Monocytes # 1.1 K/mcL (0.0-1.3); Monocytes % 9.9 %; Neutrophils # 5.7 K/mcL (1.6-8.9); Platelet Count 217 K/mcL (140-400); Red Blood Count 4.62 M/mcL (4.19-5.50); Red Cell Distribution Width 16.5 % (11.5-14.5); Segmented Neutrophils % 52.1 %; White Blood Count 10.9 K/mcL (4.3-11.1)
[2018-10-20 19:54] LABS: BUN/Creatinine Ratio 12 (6-26); Blood Urea Nitrogen 13 mg/dL (8-23); Calcium 9.2 mg/dL (8.6-10.3); Carbon Dioxide 29 mEq/L (23-29); Chloride 103 mEq/L (98-107); Glucose 98 mg/dL (70-105); Osmolality,Calculated 290 (280-300); Potassium 4.1 mEq/L (3.5-5.1); Sodium 140 mEq/L (136-145); Troponin I < 0.03 ng/mL (< 0.04); eGFR For African Americans > 60 (> 60); eGFR For Non-African Americans > 60 (> 60)
--- NOTE | 2018-10-20 21:00 | Emergency Department Note ---
Disposition Clinical Impression: Anasarca, Shortness of breath COPD (chronic obstructive pulmonary disease) Qualifiers: COPD type: unspecified COPD Qualified Code(s): J44.9 - Chronic obstructive pulmonary disease, unspecified Disposition: Admitted As Inpatient Condition: Fair Time of Disposition: 22:24 General Adult HPI - General Chief complaint: ED Shortness of Breath/Dyspnea Stated complaint: kennedy,legs swelling Time Seen by Provider: 10/20/18 20:50 Source: family Limitations: no limitations Nursing Notes Reviewed: Yes Vital Signs Reviewed: Yes - History of Present Illness HPI Narrative: 63-year-old male with history of CHF, COPD, diabetes, morbid obesity, anxiety who presents the emergency department with complaints of shortness of shortness of breath and significant lower extremity swelling. The patient states this is on been ongoing for the last several days. He states he feels significantly more short of breath when laying down and get significantly anxious. He has had many encounters for similar symptoms and feels this is related to his CHF. He denies missing doses of medication or ingestion of excess sodium or fluids. He is on chronic 2-1/2-3 L oxygen at home. He denies any chest pain, difficulty urinating, abdominal pain, nausea, vomiting. Onset (ago): day(s) Pain Scale: 10 - Related Data Home Medications Medication Instructions Recorded Confirmed Docusate Sodium [Stool Softener] 100 mg PO BID 08/04/16 10/20/18 Metformin HCl [Glucophage] 1,000 mg PO BID 08/04/16 10/20/18 Nitroglycerin [Nitrostat] 0.4 mg SL Q5M PRN 08/04/16 10/20/18 Omeprazole [PriLOSEC] 20 mg PO DAILY 08/04/16 10/20/18 Pentoxifylline [TRENtal] 400 mg PO BID 08/04/16 10/20/18 Budesonide/Formoterol 160/4.5 2 puff IH BIDR 08/28/17 10/20/18 [Symbicort 160/4.5] Cyclobenzaprine [Flexeril] 10 mg PO QAM 08/28/17 10/20/18 hydrOXYzine HCl [Hydroxyzine HCl] 25 mg PO BID PRN 02/21/18 10/20/18 Gabapentin [Neurontin] 600 mg PO BID 04/29/18 10/20/18 Aspirin 81 mg PO DAILY 07/05/18 10/20/18 Atorvastatin [Lipitor] 40 mg PO HS 07/05/18 10/20/18 FLUoxetine HCl [Prozac] 20 mg PO QAM 07/05/18 10/20/18 Cyclobenzaprine [Flexeril] 20 mg PO HS 08/10/18 10/20/18 Levothyroxine Sodium 75 mcg PO DAILY 09/09/18 10/20/18 Levothyroxine Sodium [Euthyrox] 200 mcg PO DAILY 09/09/18 10/20/18 Potassium Chloride 20 meq PO BID 09/09/18 10/20/18 Warfarin [Coumadin] 7.5 mg PO 1800 09/09/18 10/20/18 Metoprolol Succinate [Toprol Xl] 50 mg PO DAILY 09/10/18 10/20/18 LORazepam [Ativan] 0.5 mg PO BID 10/20/18 10/20/18 OxyCODONE/APAP 10/325 [Percocet 1 tab PO TID PRN 10/20/18 10/20/18 10/325 MG] Previous Rx's Medication Instructions Recorded traZODone [TraZODone] 50 mg PO HS #0 tablet 09/13/17 Ipratropium/Albuterol Neb [Duoneb] 3 ml IH Q4HR PRN #90 inhsol 08/21/18 Furosemide [Lasix] 40 mg PO BID #60 tablet 09/11/18 predniSONE [PredniSONE] 40 mg PO DAILY #10 tablet 09/11/18 Allergies Allergy/AdvReac Type Severity Reaction Status Date / Time Amoxicillin [From Augmentin] Allergy See Verified 10/20/18 21:29 Comments clavulanic acid Allergy See Verified 10/20/18 21:29 [From Augmentin] Comments meperidine [From Demerol] Allergy See Verified 10/20/18 21:29 Comments sulfamethoxazole Allergy Rash Verified 10/20/18 21:29 [From Bactrim] trimethoprim [From Bactrim] Allergy Rash Verified 10/20/18 21:29 baclofen AdvReac See Verified 10/20/18 21:29 Comments Review of Systems: ROS per history of present illness, all other systems reviewed and negative or normal. All systems ED: reviewed and negative except as stated. Review of Systems: As Per HPI Past Medical History - Past Medical History Medical history: Reports: asthma, atrial fibrillation, CHF, COPD, coronary artery disease, diabetes, hyperlipidemia, hypertension, myocardial infarction, peripheral artery disease, renal disease, thyroid disease, other Surgical history: Reports: angioplasty/stent, orthopedic, other Psychiatric history: Reports: anxiety, depression - Social History Smoking Status: Current every day smoker Smokeless Tobacco Status: No Alcohol use: Reports: occasionally Drug use: Reports: none Physical Exam General: Conversant. No apparent distress. Follow commands. Appears stated age. Morbidly obese. Neck: No JVD. Trachea midline. Neck supple. Eyes: PERRL. No scleral icterus. HENT: Normocephalic and atraumatic. Moist mucus membranes. Cardiovascular: Regular rate and rhythm. Normal S1 and S2. No murmurs appreciated. Normal capillary refill. Extremities show poor distal perfusion, likely secondary to chronic venous stasis. Pulmonary: Normal and equal breath sounds bilaterally, anteriorly and posteriorly. No wheezes, rales, or rhonchi. Not in respiratory distress on 3L nasal cannula. Abdomen: Soft, nondistended, and tontender. No bruits or masses. No guarding. Obese Neuro: Alert and oriented x3. No slurred speech. No focal deficits noted. Skin: No rashes noted on visualized skin. Musculoskeletal: No bony abnormalities visualized. Moves all extremities. Psych: Normal mood. Pleasant. Makes appropriate eye contact. - General Limitations: no limitations General appearance: alert Course Vital Signs Temperature 97.5 F L 10/20/18 18:07 Pulse Rate 98 10/20/18 18:07 Respiratory Rate 22 10/20/18 18:07 Blood Pressure 136/78 10/20/18 18:07 O2 Sat by Pulse Oximetry 99 10/20/18 18:07 Temperature 97.5 F L 10/20/18 18:35 Pulse Rate 88 10/20/18 21:36 Respiratory Rate 20 10/20/18 21:36 Blood Pressure 130/79 10/20/18 21:36 O2 Sat by Pulse Oximetry 100 10/20/18 21:37 Oxygen Delivery Oxygen Delivery Nasal Cannula Medical Decision Making - [facility] Narrative Medical decision making narrative: 63-year-old male with history of morbid obesity, COPD, CAD, CHF who presents the emergency department with complete of shortness of breath and significant peripheral edema. On arrival the patient's vital signs are stable. The patient is not hypoxic above his baseline requirement of 2-1/2-3 L. The patient does have evidence of diffuse anasarca with significant decreased peripheral vascularity. No significant leukocytosis or anemia. BMP shows no significant electrolyte abnormality. Troponin less than 0.03. Lactate 1.5. BNP 118. Kidney function appears normal. Chest x-ray shows mild pulmonary vascular congestion with stable cardiomegaly. No evidence of acute focal consolidation. Given the patient's significant anasarca and inability to care for himself at home to believe he warrants admission. Discussed case with on-call hospitalist Dr. Morgan who agrees with plan for admission and accepts the patient to the inpatient service. Patient agrees with and understands course of treatment plan including plan for admission. All questions answered. - Medical Records Medical records reviewed: Yes I reviewed the patient's medical records. - Lab Data Lab results reviewed: Yes I reviewed the patient's lab results. Result diagrams: 10/21/18 04:52 10/21/18 04:52 Lab Results 10/20/18 10/20/18 10/20/18 Range/Units 19:10 19:10 19:10 WBC 10.9 (4.3-11.1) K/mcL RBC 4.62 (4.19-5.50) M/mcL Hgb 13.3 (12.9-16.9) g/dL Hct 42.7 (37.5-50.1) % MCV 92.4 (83.0-100.0) fL MCH 28.8 (28.0-33.3) pg MCHC 31.1 L (31.6-35.5) g/dL RDW 16.5 H (11.5-14.5) % Plt Count 217 (140-400) K/mcL MPV 10.3 (9.4-12.4) fL Immature Gran % 0.6 (0-4) % Seg Neutrophils % 52.1 % Lymphocytes % 36.5 % Monocytes % 9.9 % Eosinophils % 0.5 % Basophils % 0.4 % Neutrophils # 5.7 (1.6-8.9) K/mcL Lymphocytes # 4.0 (0.6-4.6) K/mcL Monocytes # 1.1 (0.0-1.3) K/mcL Eosinophils # 0.1 (0.0-0.6) K/mcL Basophils # 0.0 (0.0-0.2) K/mcL Sodium 140 (136-145) mEq/L Potassium 4.1 (3.5-5.1) mEq/L Chloride 103 (98-107) mEq/L Carbon Dioxide 29 (23-29) mEq/L BUN 13 (8-23) mg/dL Creatinine 1.07 (0.70-1.30) mg/dL Est GFR ( Amer) > 60 (> 60) Est GFR (Non-Af Amer) > 60 (> 60) BUN/Creatinine Ratio 12 (6-26) Glucose 98 (70-105) mg/dL Calculated Osmolality 290 (280-300) Lactic Acid 1.5 (0.5-2.2) mmol/L Calcium 9.2 (8.6-10.3) mg/dL Troponin I < 0.03 (< 0.04) ng/mL B-Natriuretic Peptide (Less than 100) pg/mL 10/20/18 Range/Units 19:10 WBC (4.3-11.1) K/mcL RBC (4.19-5.50) M/mcL Hgb (12.9-16.9) g/dL Hct (37.5-50.1) % MCV (83.0-100.0) fL MCH (28.0-33.3) pg MCHC (31.6-35.5) g/dL RDW (11.5-14.5) % Plt Count (140-400) K/mcL MPV (9.4-12.4) fL Immature Gran % (0-4) % Seg Neutrophils % % Lymphocytes % % Monocytes % % Eosinophils % % Basophils % % Neutrophils # (1.6-8.9) K/mcL Lymphocytes # (0.6-4.6) K/mcL Monocytes # (0.0-1.3) K/mcL Eosinophils # (0.0-0.6) K/mcL Basophils # (0.0-0.2) K/mcL Sodium (136-145) mEq/L Potassium (3.5-5.1) mEq/L Chloride (98-107) mEq/L Carbon Dioxide (23-29) mEq/L BUN (8-23) mg/dL Creatinine (0.70-1.30) mg/dL Est GFR ( Amer) (> 60) Est GFR (Non-Af Amer) (> 60) BUN/Creatinine Ratio (6-26) Glucose (70-105) mg/dL Calculated Osmolality (280-300) Lactic Acid (0.5-2.2) mmol/L Calcium (8.6-10.3) mg/dL Troponin I (< 0.04) ng/mL B-Natriuretic Peptide 118 H (Less than 100) pg/mL - Radiology Data Radiology results reviewed: Yes I reviewed the patient's radiology results. Chest X-Ray 10/20/18 18:37 IMPRESSION: Mild pulmonary vascular congestion. Low lung volumes. Stable cardiomegaly. D/ / Pepito Schmidt MD / Pepito Schmidt MD Interpreting Provider: Pepito Schmidt MD - EKG Data EKG #1 EKG attestation: Yes I reviewed and interpreted this EKG. EKG results narrative: Normal sinus rhythm rate of 99. Intermittent PACs. When compared with prior from 09/08/18 there are no significant changes. Attestation Statement - Attestation Attestation: Dr Shaffer note: Pt seen in conjunction w/ EM Resident Dr Francisco Rome; Please see her charting for complete documentation; I spent face to face time w/ the pt and agree w/ the pt's treatment and disposition; progressive fluid overload for the last week th at became a lot worse yesterday. Increased swelling in his face abdomen and extremities with increase in his baseline exertional dyspnea. No chest pain. No fever cough vomiting or diarrhea. Patient has much clinical fluid overload that he is unable to get around on top of his baseline morbid obesity. EKG interpreted by myself without benefit of the cardiology service normal sinus rhythm without acute injury pattern. Intermittent PACs are noted. Blood work is been reviewed. X-ray does show pulmonary vascular congestion. Does have dyspnea with minimal movement.
[2018-10-20] MEDS ORDERED: Furosemide 40 MG/4 ML VIAL IVP ONE (22:08)
[2018-10-20 22:31] LABS: INR 3.1; Prothrombin Time 34.8 Seconds (9.4-12.1)
[2018-10-21] MEDS ORDERED: Naloxone 0.4 MG/ML INJ IVP PRN (03:37)
[2018-10-21] MEDS ORDERED: Ondansetron 4 MG/2 ML VIAL IVP PRN (03:37)
[2018-10-21] MEDS ORDERED: *HR* Dextrose 50 % in Water (Syg) 50 ML SYRINGE IVP PRN (03:37)
[2018-10-21] MEDS ORDERED: Acetaminophen 325 MG TABLET PO PRN (03:37)
[2018-10-21] MEDS ORDERED: Dextrose Gel 15 GM/37.5 ML TUBE PO PRN ×2 (03:37)
[2018-10-21] MEDS ORDERED: D5% in Water 1,000 ML IVC PRN (03:37)
[2018-10-21] MEDS ORDERED: Nitroglycerin 0.4 MG TAB.SUBL SL PRN (03:40)
[2018-10-21] MEDS ORDERED: *HR* OxyCODONE/APAP 10/325 TABLET PO PRN (03:40)
[2018-10-21] MEDS ORDERED: hydrOXYzine pamoate 25 MG CAPSULE PO PRN (03:40)
[2018-10-21] MEDS ORDERED: Furosemide 240 MG in D5% in Water 96 ML IVC SCH (03:45)
--- NOTE | 2018-10-21 03:51 | Internal Med History&Physical ---
Date of Encounter: 10/21/18 Time of Encounter: 02:00 Internal Medicine - H&P: HPI Chief complaint: swelling, SOB Admitted From: Emergency Dept Plans for Post Hospital Care: Home History of present illness: Mr. Davila is a 63 year old male who presents to ER with complaints of significant lower extremity edema, weeping drainage from the legs, worsening dyspnea, chest tightness, and worsening anxiety with his symptoms. He has been admitted multiple times in recent months for COPD and CHF flareups. He recently was evaluated by palliative care and was enrolled in hospice. However, since then, he has been readmitted 2 more times for the same reasons. I discussed with him his CODE STATUS and this goals of care, and he remains quite confused and unable to make a decision presently. Given his indecision and recurrent admissions, I will keep him full code for now and reconsult palliative care to assist in goals of care management. Presently, he denies any chest pain but he does complain of dyspnea, wheezing, significant fluid overload, orthopnea, and paroxysmal nocturnal dyspnea. He denies any fevers, chills, productive cough, vomiting, or diarrhea. His legs are edematous and weeping. He did receive a dose of IV Lasix the ER and has had significant urine output. Past Med Surg Social Fam HX - Past Medical History Attestation: Yes The following information was validated with the patient. Source: patient, old records reviewed Medical history: asthma, atrial fibrillation, CHF, COPD, coronary artery disease, diabetes, hyperlipidemia, hypertension, myocardial infarction, peripher al artery disease, renal disease, thyroid disease, other Additional medical history: Grave's disease, CKD (unsure what stage). Psychiatric history: anxiety, depression - Past Surgical History Surgical History: angioplasty/stent, orthopedic, other Additional surgical history: one cardiac stent. left hand surgery. Bilateral eye surgery - Social History Smoking Status: Current every day smoker Packs per day: 1/2 Smokeless Tobacco Status: No Alcohol use: occasionally Drug use: none Current living situation: Home - Independent Activity Level: Independent ambulation Recent Out of Country Travel Within the Last 8 Weeks: No - Family History Mother Family Member Ethnicity: Non- Living Status: Hx Family Cardiac Disorders: No Hx Family Respiratory Disorders: No Father Family Member Ethnicity: Non- Living Status: Hx Family Cardiac Disorders: No Hx Family Respiratory Disorders: No Hx Family Cancer: Yes (pancreatic) Brother Family Member Ethnicity: Non- Living Status: Still Living Hx Family Cardiac Disorders: Yes (Pacemaker) Hx Family Endocrine Disorder: Yes (DM) Sister Family Member Ethnicity: Non- Living Status: Still Living Hx Family Cardiac Disorders: No Hx Family Respiratory Disorders: No Hx Family Cancer: Yes (dad pancereas) Hx Family GI Disorders: No Hx Family Endocrine Disorder: No Hx Family Neuromuscular Disorders: No Hx Family Neurologic Disorders: No Hx Family HEENT Disorders: No Hx Family Autoimmune Disorders: No Internal Medicine - H&P: Meds Docusate Sodium [Stool Softener] 100 mg PO BID 08/04/16 [History] Metformin HCl [Glucophage] 1,000 mg PO BID 08/04/16 [History] Nitroglycerin [Nitrostat] 0.4 mg SL Q5M PRN 08/04/16 [History] Omeprazole [PriLOSEC] 20 mg PO DAILY 08/04/16 [History] Pentoxifylline [TRENtal] 400 mg PO BID 08/04/16 [History] Budesonide/Formoterol 160/4.5 [Symbicort 160/4.5] 2 puff IH BIDR 08/28/17 [History] Cyclobenzaprine [Flexeril] 10 mg PO QAM 08/28/17 [History] traZODone [TraZODone] 50 mg PO HS #0 tablet 09/13/17 [Rx] hydrOXYzine HCl [Hydroxyzine HCl] 25 mg PO BID PRN 02/21/18 [History] Gabapentin [Neurontin] 600 mg PO BID 04/29/18 [History] Aspirin 81 mg PO DAILY 07/05/18 [History] Atorvastatin [Lipitor] 40 mg PO HS 07/05/18 [History] FLUoxetine HCl [Prozac] 20 mg PO QAM 07/05/18 [History] Cyclobenzaprine [Flexeril] 20 mg PO HS 08/10/18 [History] Ipratropium/Albuterol Neb [Duoneb] 3 ml IH Q4HR PRN #90 inhsol 08/21/18 [Rx] Levothyroxine Sodium 75 mcg PO DAILY 09/09/18 [History] Levothyroxine Sodium [Euthyrox] 200 mcg PO DAILY 09/09/18 [History] Potassium Chloride 20 meq PO BID 09/09/18 [History] Warfarin [Coumadin] 7.5 mg PO 1800 09/09/18 [History] Metoprolol Succinate [Toprol Xl] 50 mg PO DAILY 09/10/18 [History] Furosemide [Lasix] 40 mg PO BID #60 tablet 09/11/18 [Rx] predniSONE [PredniSONE] 40 mg PO DAILY #10 tablet 09/11/18 [Rx] LORazepam [Ativan] 0.5 mg PO BID 10/20/18 [History] OxyCODONE/APAP 10/325 [Percocet 10/325 MG] 1 tab PO TID PRN 10/20/18 [History] Allergy/AdvReac Type Severity Reaction Status Date / Time Amoxicillin [From Augmentin] Allergy See Verified 10/20/18 21:29 Comments clavulanic acid Allergy See Verified 10/20/18 21:29 [From Augmentin] Comments meperidine [From Demerol] Allergy See Verified 10/20/18 21:29 Comments sulfamethoxazole Allergy Rash Verified 10/20/18 21:29 [From Bactrim] trimethoprim [From Bactrim] Allergy Rash Verified 10/20/18 21:29 baclofen AdvReac See Verified 10/20/18 21:29 Comments - Constitutional Constitutional: excessive sweating, fatigue, weight gain, no chills, no fever(s), no night sweats - EENT Eyes: no blurry vision, no change in vision Ears: no ear pain, no tinnitus Nose, mouth and throat: no nasal congestion, no sinus pressure, no sore throat - Cardiovascular Cardiovascular ROS IM: diaphoresis, dyspnea, dyspnea on exertion, edema, orthopnea, paroxysmal nocturnal dyspnea, no chest pain, no syncope - Respiratory Respiratory: dyspnea, dyspnea on exertion, wheezing, no cough, no hemoptysis, no chest congestion, no excessive phlegm production, no change in phlegm color, no pain with cough - Gastrointestinal Gastrointestinal: no abdominal pain, no diarrhea, no hematemesis, no hematochezia, no melena, no nausea, no vomiting - Genitourinary Genitourinary ROS male: no dysuria, no flank pain, no hematuria - Musculoskeletal Musculoskeletal ROS IM: arthralgias, no back pain - Integumentary Integumentary IM: no rash, no jaundice - Neurological Neurological ROS: no dizziness, no focal weakness, no frequent falls, no headache(s) - Psychiatric Psychiatric: anxiety, depression - Endocrine Endocrine IM: no polydipsia, no polyphagia, no polyuria - Hematologic/Lymphatic Hematologic/Lymphatic: easy bleeding, easy bruising - Allergic/Immunologic Allergic/Immunologic: wheezing, no GI upset with certain foods - Constitutional Vitals: Temp Pulse Resp BP Pulse Ox 98.0 F 84 17 102/64 94 10/21/18 03:22 10/21/18 03:22 10/21/18 03:22 10/21/18 03:22 10/21/18 03:22 General appearance: Present: cooperative, mild distress, A&O X 3, morbidly obese, pleasant, answers questions appropriately Exam: mild to moderate respiratory distress; + anasarca - Head Head exam: Present: atraumatic, normal inspection - Eye Eye exam: Present: EOMI, PERRL. Absent: scleral icterus Pupils: Present: normal accommodation - ENT ENT exam: Present: mucous membranes moist, normal oropharynx - Neck Neck exam general surgery: Present: full ROM, supple, trachea midline. Absent: lymphadenopathy, tenderness, nuchal rigidity, thyromegaly - Respiratory Respiratory exam: Present: accessory muscle use, prolonged expiratory phase, rales, respiratory distress, wheezes, tachypnea. Absent: chest wall tenderness, stridor - Cardiovascular Cardiovascular exam: Present: distant heart sounds, +S1, +S2. Absent: diastolic murmur, systolic murmur - GI/Abdominal GI/Abdominal exam: Present: hypoactive bowel sounds, soft. Absent: hepatomegaly, mass, tenderness, no peritoneal signs - Extremities Exam Extremities exam: Present: full ROM, normal capillary refill, tenderness (tender along pretibial areas with weeping drainage), warm, radial pulses palpable and symmetrical. Absent: calf tenderness, pedal edema - Back Exam Back exam: Absent: CVA tenderness (L), CVA tenderness (R) - Neurological Exam Neurological exam: Present: alert, CN II-XII intact, oriented X3, no focal deficits, strengths equal and symetr throughout - Psychiatric Psychiatric exam: Present: anxious, normal mood - Skin Skin exam: Present: dry, intact, warm Internal Med - H&P Results - Labs CBC & Chem 7: 10/20/18 19:10 10/20/18 19:10 Labs: Short CBC 10/20/18 Range/Units 19:10 WBC 10.9 (4.3-11.1) K/mcL Hgb 13.3 (12.9-16.9) g/dL Hct 42.7 (37.5-50.1) % Plt Count 217 (140-400) K/mcL Neutrophils # 5.7 (1.6-8.9) K/mcL BMP 10/20/18 19:10 Sodium 140 Potassium 4.1 Chloride 103 Carbon Dioxide 29 BUN 13 Creatinine 1.07 Glucose 98 Calcium 9.2 Cardiac Enzymes 10/20/18 Range/Units 19:10 Troponin I < 0.03 (< 0.04) ng/mL - EKG Data -: EKG Interpreted by Myself EKG shows normal: sinus rhythm - EKG Data Prior EKG available for review: no EKG comments: 10/21/18 03:58 NSR; PACs; no acute changes - Impressions ITS Impressions Chest X-Ray 10/20/18 18:37 IMPRESSION: Mild pulmonary vascular congestion. Low lung volumes. Stable cardiomegaly. D/ / Pepito Schmidt MD / Pepito Schmidt MD Interpreting Provider: Pepito Schmidt MD - Diagnostic Studies Chest x-ray Status: image reviewed by me (mild pulmonary congestion) - Assessment and Plan (1) Acute and chronic respiratory failure Current Visit: Yes Status: Acute Assessment and plan: 1. Will order BiPap, oxygen, and home pulmonary meds. 2. Will place on Lasix drip in hopes of mobilizing much of his fluid overload state and expediting diuresis. 3. Continue homed steroids. 4. Re-consult palliative care in hopes of clarifying goals of care. Qualifiers: Respiratory failure complication: hypoxia Qualified Code(s): J96.21 - Acute and chronic respiratory failure with hypoxia (2) Anasarca Current Visit: Yes Status: Chronic Assessment and plan: 1. Will attempt Lasix drip for 24 -48 hours. 2. Monitor I/O and daily renal function. 3. Consult nephrology. (3) Chronic diastolic (congestive) heart failure Current Visit: Yes Status: Acute Assessment and plan: 1. Lasix drip in hopes of mobilizing his fluid and expediting diuresis. 2. Monitor I/O and renal function. (4) DVT prophylaxis Current Visit: Yes Status: Acute Assessment and plan: 1. Coumadin dosing per pharmacy.
[2018-10-21 06:00] LABS: Basophils % 0.3 %; Eosinophils # 0.1 K/mcL (0.0-0.6); Eosinophils % 0.8 %; Hematocrit 38.4 % (37.5-50.1); Hemoglobin 11.8 g/dL (12.9-16.9); Immature Granulocytes % 0.4 % (0-4); Lymphocytes % 40.6 %; Mean Corpuscular HGB Conc 30.7 g/dL (31.6-35.5); Mean Corpuscular Hemoglobin 29.4 pg (28.0-33.3); Mean Corpuscular Volume 95.8 fL (83.0-100.0); Mean Platelet Volume 10.6 fL (9.4-12.4); Neutrophils # 3.3 K/mcL (1.6-8.9); Platelet Count 166 K/mcL (140-400); Red Blood Count 4.01 M/mcL (4.19-5.50); Red Cell Distribution Width 16.4 % (11.5-14.5); Segmented Neutrophils % 44.9 %; White Blood Count 7.4 K/mcL (4.3-11.1)
[2018-10-21 06:16] LABS: INR 2.6; Prothrombin Time 29.5 Seconds (9.4-12.1)
[2018-10-21 06:39] LABS: Bilirubin,Urine Negative (Negative); Blood,Urine Negative (Negative); Clarity,Urine Clear (Clear); Color,Urine Yellow (Yellow); Glucose,Urine (UA) Normal (Normal); Ketones,Urine 15 mg/dL (Negative); Leukocyte Esterase,Urine Negative (Negative); Nitrite,Urine Negative (Negative); PH,Urine 5.5 pH Units (5.0-8.0); Protein,Urine Negative (Neg-Trace); Specific Gravity,Urine 1.017 (1.010-1.025); Urobilinogen,Urine Normal (Normal)
[2018-10-21 06:43] LABS: Albumin 3.4 g/dL (3.5-5.7); Albumin/Globulin Ratio 1.5 (1.1-2.2); Alkaline Phosphatase 33 Units/L (34-104); Aspartate Amino Transferase 14 Units/L (13-39); BUN/Creatinine Ratio 12 (6-26); Bilirubin,Total 0.4 mg/dL (0.3-1.0); Blood Urea Nitrogen 12 mg/dL (8-23); Calcium 8.9 mg/dL (8.6-10.3); Carbon Dioxide 31 mEq/L (23-29); Chloride 102 mEq/L (98-107); Globulin 2.3 g/dL (2.4-3.5); Glucose 100 mg/dL (70-105); Magnesium 1.5 mg/dL (1.6-2.6); Osmolality,Calculated 298 (280-300); Sodium 144 mEq/L (136-145); Thyroid Stimulating Hormone 0.492 mcIU/mL (0.340-5.600); Total Protein 5.7 g/dL (6.4-8.9); eGFR For African Americans > 60 (> 60); eGFR For Non-African Americans > 60 (> 60)
[2018-10-21 07:16] LABS: Alanine Aminotransferase 13 Units/L (7-52)
[2018-10-21] MEDS: Aspirin 81 MG TAB.CHEW PO SCH (08:25)
[2018-10-21] MEDS: Insulin LISPRO 300 UNITS/3 ML VIAL SQ SCH ×3 (08:25→17:28)
[2018-10-21] MEDS: *HR* LORazepam 0.5 MG TABLET PO SCH ×2 (08:25→20:38)
[2018-10-21] MEDS: predniSONE 20 MG TABLET PO SCH (08:26)
[2018-10-21] MEDS: Gabapentin 300 MG CAPSULE PO SCH ×2 (08:26→20:38)
[2018-10-21] MEDS: FLUoxetine 20 MG CAPSULE PO SCH (08:26)
[2018-10-21] MEDS: Metoprolol XL (24 HR) Succ 50 MG TAB.ER.24H PO SCH (08:27)
[2018-10-21] MEDS ORDERED: predniSONE 20 MG TABLET PO SCH (09:00)
[2018-10-21] MEDS ORDERED: NON-FORMULARY MEDICATION 1 EACH EACH (Levothyroxine Sodium [Euthyrox] 200 MCG) PO SCH (09:00)
[2018-10-21] MEDS ORDERED: Furosemide 40 MG/4 ML VIAL IVP SCH (09:00)
--- NOTE | 2018-10-21 09:21 | Nephrology Consult Note ---
Date of Encounter: 10/21/18 Time of Encounter: 10:00 Assessment and Plan (1) Acute and chronic respiratory failure Current Visit: Yes Status: Acute Agree with current diuretic regimen Strict I/Os advised Fluid restriction advised Will check urine for proteinuria though was negative last year Qualifiers: Respiratory failure complication: hypoxia Qualified Code(s): J96.21 - Acute and chronic respiratory failure with hypoxia (2) Chronic diastolic (congestive) heart failure Current Visit: Yes Status: Acute (3) Anasarca Current Visit: Yes Status: Chronic History of Present Illness - Reason for Consult Consult date: 10/21/18 Requesting physician: Chris Cole (fluid overload) - History of Present Illness 63 y o male with PMH of DM, HTN, COPD, Afib, PAD and CAD with CHF admitted with worsening LE edema and SOB for which he was started on iv lasix by admitting physician. Renal consulted for ?fluid management. No signs or renal disease noted at SCr is 0.97, GFR >60. Had an epsiode of PRICE in july but otherwise no other renal issues. UA shows no proteinuria. Pt was seen and discharged from our practice to be seen on a need basis by Dr Esparza a year ago since he had no active renal issue Past Med Surg Social Fam HX - Past Medical History Medical history: asthma, atrial fibrillation, CHF, COPD, coronary artery disease, diabetes, hyperlipidemia, hypertension, myocardial infarction, peripheral artery disease, renal disease, thyroid disease, other Additional medical history: Grave's disease, CKD (unsure what stage). Psychiatric history: anxiety, depression - Past Surgical History Surgical History: angioplasty/stent, orthopedic, other Additional surgical history: one cardiac stent. left hand surgery. Bilateral eye surgery - Social History Smoking Status: Current every day smoker Packs per day: 1/2 Smokeless Tobacco Status: No Alcohol use: occasionally Drug use: none - Family History Mother Family Member Ethnicity: Non- Living Status: Hx Family Cardiac Disorders: No Hx Family Respiratory Disorders: No Father Family Member Ethnicity: Non- Living Status: Hx Family Cardiac Disorders: No Hx Family Respiratory Disorders: No Hx Family Cancer: Yes (pancreatic) Brother Family Member Ethnicity: Non- Living Status: Still Living Hx Family Cardiac Disorders: Yes (Pacemaker) Hx Family Endocrine Disorder: Yes (DM) Sister Family Member Ethnicity: Non- Living Status: Still Living Hx Family Cardiac Disorders: No Hx Family Respiratory Disorders: No Hx Family Cancer: Yes (dad pancereas) Hx Family GI Disorders: No Hx Family Endocrine Disorder: No Hx Family Neuromuscular Disorders: No Hx Family Neurologic Disorders: No Hx Family HEENT Disorders: No Hx Family Autoimmune Disorders: No Medications and Allergies Docusate Sodium [Stool Softener] 100 mg PO BID 08/04/16 [History] Metformin HCl [Glucophage] 1,000 mg PO BID 08/04/16 [History] Nitroglycerin [Nitrostat] 0.4 mg SL Q5M PRN 08/04/16 [History] Omeprazole [PriLOSEC] 20 mg PO DAILY 08/04/16 [History] Pentoxifylline [TRENtal] 400 mg PO BID 08/04/16 [History] Budesonide/Formoterol 160/4.5 [Symbicort 160/4.5] 2 puff IH BIDR 08/28/17 [History] Cyclobenzaprine [Flexeril] 10 mg PO QAM 08/28/17 [History] traZODone [TraZODone] 50 mg PO HS #0 tablet 09/13/17 [Rx] hydrOXYzine HCl [Hydroxyzine HCl] 25 mg PO BID PRN 02/21/18 [History] Gabapentin [Neurontin] 600 mg PO BID 04/29/18 [History] Aspirin 81 mg PO DAILY 07/05/18 [History] Atorvastatin [Lipitor] 40 mg PO HS 07/05/18 [History] FLUoxetine HCl [Prozac] 20 mg PO QAM 07/05/18 [History] Cyclobenzaprine [Flexeril] 20 mg PO HS 08/10/18 [History] Ipratropium/Albuterol Neb [Duoneb] 3 ml IH Q4HR PRN #90 inhsol 08/21/18 [Rx] Levothyroxine Sodium 75 mcg PO DAILY 09/09/18 [History] Levothyroxine Sodium [Euthyrox] 200 mcg PO DAILY 09/09/18 [History] Potassium Chloride 20 meq PO BID 09/09/18 [History] Warfarin [Coumadin] 7.5 mg PO 1800 09/09/18 [History] Metoprolol Succinate [Toprol Xl] 50 mg PO DAILY 09/10/18 [History] Furosemide [Lasix] 40 mg PO BID #60 tablet 09/11/18 [Rx] predniSONE [PredniSONE] 40 mg PO DAILY #10 tablet 09/11/18 [Rx] LORazepam [Ativan] 0.5 mg PO BID 10/20/18 [History] OxyCODONE/APAP 10/325 [Percocet 10/325 MG] 1 tab PO TID PRN 10/20/18 [History] Allergy/AdvReac Type Severity Reaction Status Date / Time Amoxicillin [From Augmentin] Allergy See Verified 10/20/18 21:29 Comments clavulanic acid Allergy See Verified 10/20/18 21:29 [From Augmentin] Comments meperidine [From Demerol] Allergy See Verified 10/20/18 21:29 Comments sulfamethoxazole Allergy Rash Verified 10/20/18 21:29 [From Bactrim] trimethoprim [From Bactrim] Allergy Rash Verified 10/20/18 21:29 baclofen AdvReac See Verified 10/20/18 21:29 Comments Exam - Vital Signs Vital signs: Initial Vital Signs Temp Pulse Resp BP Pulse Ox 97.5 F L 98 22 136/78 99 10/20/18 18:07 10/20/18 18:07 10/20/18 18:07 10/20/18 18:07 10/20/18 18:07 Vital Signs - Last 8 Hours Temp Pulse Resp BP Pulse Ox 10/21/18 08:36 97.7 F 86 16 110/69 98 10/21/18 04:00 19 98 10/21/18 03:22 98.0 F 84 17 102/64 94 Intake and Output 10/20/18 10/21/18 10/21/18 23:59 07:59 15:59 Intake Total 0 / 0 Output Total 700 / 700 400 / 400 Balance -700 / -700 -400 / -400 Intake: Oral 0 / 0 Output: Urine 700 / 700 400 / 400 Other: Weight 177.7 kg Blood Glucose* 97 Results - Lab Results 10/21/18 04:52 10/21/18 04:52 Most recent lab results 10/21/18 04:52 Calcium 8.9 Magnesium 1.5 L Consult Discharge Plan - Plan Referrals: Fartun Quinones, [facility] [Primary Care Provider] -
[2018-10-21] MEDS ORDERED: Furosemide 40 MG TABLET PO SCH (10:00)
[2018-10-21 10:48] LABS: Estimated Average Glucose 140 mg/dl
[2018-10-21] MEDS: Budesonide/Formoterol 160/4.5 1 PUFF INH IH SCH ×2 (11:08→22:53)
[2018-10-21] MEDS: Ipratropium/Albuterol Neb 3 ML IH PRN ×2 (11:10→22:54)
--- NOTE | 2018-10-21 11:46 | Palliative - Consult Note ---
Date of Encounter: 10/21/18 Time of Encounter: 09:30 - Assessment and Plan (1) Anasarca Current Visit: Yes Status: Chronic Assessment and plan: Lasix for diuresis. management per primary team (2) Chronic respiratory failure with hypoxia Current Visit: No Status: Chronic Assessment and plan: Bipap and oxygen supplementation management per primary team. Patient has opioids for chronic pain, will also help releive dyspnea. (3) Goals of care, counseling/discussion Current Visit: No Status: Acute Assessment and plan: 40 minutes goals of care discussion with patient. Patient lives alone, he has a son Keny and [id number] Saranya, as well as a brother Tino that check on him periodically. Discussed the terminal nature of patient's lung disease, and the co-morbidities of CHF and obesity. Discussed that pt continues to be admitted f requently because he does not comply with hospice plan of care. Patient states that he is alone and when he feels SOB, he feels that he needs help right away and so he comes to the hospital. Discuss that pt could go to rehab where he will have more care, and consider his eligibility for Medicaid. Patient does not want to consider SNF stay. Patient's ultimate goal is to stay alive for as long as po ssible and in his home. Called Macey Mahan from [facility] to discuss the case. Per Macey, [facility] have provided pt with education and tols to manage his symptoms at home while waiting for a nurse to come, including a Trilogy unit for noninvasive ventilation. There will be further education once patient returns home. (4) Palliative care encounter Current Visit: No Status: Acute Palliative-CN HPI - Data of Consult Patient: known to practice within the last 3 years Consult date: 10/21/18 Requesting Physician: Gerber Weldon MD Primary Care Provider: Fartun Quinones CNP - Consult Narrative Palliative Care/Comfort Measures: Palliative care Reason for consult: Goals of care History of present illness: Mr. Davila is a 63 year old male with pmh of diastolic CHF, COPD on 3L of oxygen, CAD, hypertension, atrial fibrillation on coumadin presenting with compl aints of swelling of legs and hands. Patient is known to palliative care team from his admission in 08/14 for COPD exacerbation. At the time after several discussions with palliative care team, he decided for home hospice. Patient has since be admitted once more in 09/09/18 for SOB and was discharged home with [facility]. Patient states he was feeling edematous and has panic attacks. He knew that it will take some time for hospice to get to him, so he decided to go to the hospital instead. Today pt is feeling SOB, but about at his baseline. He is being treated with lasix, and having a good urine output. He has reduced appetite, complaining of back pain and leg tenderness. No N/V, changes in bowel habits. CC: Gerber Weldon MD - Time Spent with Patient Time: Total time spent is greater than 50% in coordination of care (as documented) at patient's floor/unit and/or counseling patient: Time with patient: 75 minutes Past Med Surg Social Fam HX - Past Medical History Medical history: asthma, atrial fibrillation, CHF, COPD, coronary artery disease, diabetes, hyperlipidemia, hypertension, myocardial infarction, peripheral artery disease, renal disease, thyroid disease, other Additional medical history: Grave's disease, CKD (unsure what stage). Psychiatric history: anxiety, depression - Past Surgical History Surgical History: angioplasty/stent, orthopedic, other Additional surgical history: one cardiac stent. left hand surgery. Bilateral eye surgery - Social History Smoking Status: Current every day smoker Packs per day: 1/2 Smokeless Tobacco Status: No Alcohol use: occasionally Drug use: none - Family History Mother Family Member Ethnicity: Non- Living Status: Hx Family Cardiac Disorders: No Hx Family Respiratory Disorders: No Father Family Member Ethnicity: Non- Living Status: Hx Family Cardiac Disorders: No Hx Family Respiratory Disorders: No Hx Family Cancer: Yes (pancreatic) Brother Family Member Ethnicity: Non- Living Status: Still Living Hx Family Cardiac Disorders: Yes (Pacemaker) Hx Family Endocrine Disorder: Yes (DM) Sister Family Member Ethnicity: Non- Living Status: Still Living Hx Family Cardiac Disorders: No Hx Family Respiratory Disorders: No Hx Family Cancer: Yes (dad pancereas) Hx Family GI Disorders: No Hx Family Endocrine Disorder: No Hx Family Neuromuscular Disorders: No Hx Family Neurologic Disorders: No Hx Family HEENT Disorders: No Hx Family Autoimmune Disorders: No Medications and Allergies Docusate Sodium [Stool Softener] 100 mg PO BID 08/04/16 [History] Metformin HCl [Glucophage] 1,000 mg PO BID 08/04/16 [History] Nitroglycerin [Nitrostat] 0.4 mg SL Q5M PRN 08/04/16 [History] Omeprazole [PriLOSEC] 20 mg PO DAILY 08/04/16 [History] Pentoxifylline [TRENtal] 400 mg PO BID 08/04/16 [History] Budesonide/Formoterol 160/4.5 [Symbicort 160/4.5] 2 puff IH BIDR 08/28/17 [History] Cyclobenzaprine [Flexeril] 10 mg PO QAM 08/28/17 [History] traZODone [TraZODone] 50 mg PO HS #0 tablet 09/13/17 [Rx] hydrOXYzine HCl [Hydroxyzine HCl] 25 mg PO BID PRN 02/21/18 [History] Gabapentin [Neurontin] 600 mg PO BID 04/29/18 [History] Aspirin 81 mg PO DAILY 07/05/18 [History] Atorvastatin [Lipitor] 40 mg PO HS 07/05/18 [History] FLUoxetine HCl [Prozac] 20 mg PO QAM 07/05/18 [History] Cyclobenzaprine [Flexeril] 20 mg PO HS 08/10/18 [History] Ipratropium/Albuterol Neb [Duoneb] 3 ml IH Q4HR PRN #90 inhsol 08/21/18 [Rx] Levothyroxine Sodium 75 mcg PO DAILY 09/09/18 [History] Levothyroxine Sodium [Euthyrox] 200 mcg PO DAILY 09/09/18 [History] Potassium Chloride 20 meq PO BID 09/09/18 [History] Warfarin [Coumadin] 7.5 mg PO 1800 09/09/18 [History] Metoprolol Succinate [Toprol Xl] 50 mg PO DAILY 09/10/18 [History] Furosemide [Lasix] 40 mg PO BID #60 tablet 09/11/18 [Rx] predniSONE [PredniSONE] 40 mg PO DAILY #10 tablet 09/11/18 [Rx] LORazepam [Ativan] 0.5 mg PO BID 10/20/18 [History] OxyCODONE/APAP 10/325 [Percocet 10/325 MG] 1 tab PO TID PRN 10/20/18 [History] Allergy/AdvReac Type Severity Reaction Status Date / Time Amoxicillin [From Augmentin] Allergy See Verified 10/20/18 21:29 Comments clavulanic acid Allergy See Verified 10/20/18 21:29 [From Augmentin] Comments meperidine [From Demerol] Allergy See Verified 10/20/18 21:29 Comments sulfamethoxazole Allergy Rash Verified 10/20/18 21:29 [From Bactrim] trimethoprim [From Bactrim] Allergy Rash Verified 10/20/18 21:29 baclofen AdvReac See Verified 10/20/18 21:29 Comments - Constitutional Constitutional ROS PAL: decreased appetite, fatigue - EENT Additional comments: negative - Cardiovascular Cardiovascular ROS: edema, leg edema, pedal edema, no chest pain, no chest pain at rest Additional comments: anasarca - Respiratory Respiratory: dyspnea, dyspnea on exertion - Gastrointestinal Gastrointestinal: no bloating, no change in bowel habits, no change in stool character - Genitourinary Genitourinary ROS male: no dysuria, no urinary frequency - Musculoskeletal Musculoskeletal ROS IM: muscle weakness - Integumentary ROS Integumentary: erythema (b/l LE) - Neurological Neurological ROS: no abnormal movements, no focal weakness - Psychiatric Psychiatric general PM: no depression Palliative Care-Exam - Constitutional Vitals: Temp Pulse Resp BP Pulse Ox 97.7 F 86 16 110/69 98 10/21/18 08:36 10/21/18 08:36 10/21/18 08:36 10/21/18 08:36 10/21/18 08:36 General appearance: Present: morbidly obese, no acute distress - Head Head Exam: Present: atraumatic - Eye Eye exam: Present: EOMI, normal appearance - ENT ENT exam: Present: mucous membranes moist - Neck Neck exam: Present: normal inspection - Respiratory Respiratory exam: Present: accessory muscle use, decreased breath sounds, wheezes - Cardiovascular Cardiovascular exam: Present: RRR, +S1, +S2 - GI/Abdominal Exam GI/Abdominal exam: Present: normal bowel sounds. Absent: tenderness - Extremities Exam Extremities exam: Present: full ROM Additional comments: diffused edema - Neurological Exam Neurological exam: Present: alert, oriented X3, no focal deficits - Skin Additional comments: b/l LE venous stasis dermatitis Internal Medicine - CN: Reslt - Labs CBC & Chem 7: 10/21/18 04:52 10/21/18 04:52 Labs: Short CBC 10/20/18 10/21/18 Range/Units 19:10 04:52 WBC 10.9 7.4 (4.3-11.1) K/mcL Hgb 13.3 11.8 L D (12.9-16.9) g/dL Hct 42.7 38.4 (37.5-50.1) % Plt Count 217 166 (140-400) K/mcL Neutrophils # 5.7 3.3 (1.6-8.9) K/mcL BMP 10/20/18 10/21/18 19:10 04:52 Sodium 140 144 Potassium 4.1 4.0 Chloride 103 102 Carbon Dioxide 29 31 H BUN 13 12 Creatinine 1.07 0.97 Glucose 98 100 Calcium 9.2 8.9 Cardiac Enzymes 10/20/18 Range/Units 19:10 Troponin I < 0.03 (< 0.04) ng/mL Liver Function 10/21/18 Range/Units 04:52 Total Bilirubin 0.4 (0.3-1.0) mg/dL AST 14 (13-39) Units/L ALT 13 (7-52) Units/L Alkaline Phosphatase 33 L (34-104) Units/L Albumin 3.4 L (3.5-5.7) g/dL Urine 10/21/18 Range/Units 06:10 Urine Color Yellow (Yellow) Urine Clarity Clear (Clear) Urine pH 5.5 (5.0-8.0) pH Units Ur Specific [place] 1.017 (1.010-1.025) Urine Protein Negative (Neg-Trace) mg/dL Urine Glucose (UA) Normal (Normal) mg/dL - ABG Interpretation ABG results: PT/INR, D-dimer PT 29.5 Seconds (9.4-12.1) H 10/21/18 04:52 - Impressions Impressions Chest X-Ray 10/20/18 18:37 IMPRESSION: Mild pulmonary vascular congestion. Low lung volumes. Stable cardiomegaly. D/ / Pepito Schmidt MD / Pepito Schmidt MD Interpreting Provider: Pepito Schmidt MD Consult Discharge Plan - Plan Referrals: Fartun Quinones, CL[facility] GROWER [Primary Care Provider] - Palliative Quality Palliative Quality: Screen for Code Status: Yes, Screen for Goals of Care: Yes, Screen for Pain: Yes, If Pain Regimen Started, Initiate Bowel Regimen: Yes, Screen for Nausea/Vomitting: Yes Code Status: 10/21/18 03:37 Resuscitation Status: Active [RES] Routine Comment: Resuscitation Status: Full Code Palliative Scale - Palliative Performance Scale How ambulatory is this patient?: Mainly sit / lie What is patient's level of activity and evidence of disease?: Unable hobby/housework, Significant disease How much self-care assistance does patient require?: Considerable assistance required How much oral intake does the patient have?: Normal or reduced What is this patient's level of consciousness?: Full Palliative Performance Score: 60 %
--- NOTE | 2018-10-21 13:17 | Event Note ---
Date of Encounter: 10/21/18 Time of Encounter: 13:16 I have seen and evaluated the patient at bedside. H&P reviewed. will continue current management. patient hemodynamicallu stable.
[2018-10-21] MEDS: Furosemide 40 MG/4 ML VIAL IVP SCH (16:04)
[2018-10-21] MEDS ORDERED: *HR* Warfarin 2 MG TABLET PO ONE (18:00)
[2018-10-21] MEDS ORDERED: Warfarin perPT PO PRN (18:00)
[2018-10-21] MEDS: traZODone 50 MG TABLET PO SCH (20:38)
[2018-10-21] MEDS: *HR* OxyCODONE/APAP 10/325 TABLET PO PRN (20:56)
[2018-10-21 23:10] LABS: Protein/Creatinine Ratio,Urine 0.1 mg/mg (0.00-0.20)
[2018-10-22 05:46] LABS: Basophils % 0.4 %; Eosinophils # 0.1 K/mcL (0.0-0.6); Eosinophils % 0.7 %; Hematocrit 35.4 % (37.5-50.1); Immature Granulocytes % 0.4 % (0-4); Lymphocytes # 2.7 K/mcL (0.6-4.6); Lymphocytes % 36.4 %; Mean Corpuscular HGB Conc 31.1 g/dL (31.6-35.5); Mean Corpuscular Volume 93.4 fL (83.0-100.0); Mean Platelet Volume 10.4 fL (9.4-12.4); Monocytes # 0.8 K/mcL (0.0-1.3); Monocytes % 10.8 %; Neutrophils # 3.9 K/mcL (1.6-8.9); Platelet Count 156 K/mcL (140-400); Red Blood Count 3.79 M/mcL (4.19-5.50); Red Cell Distribution Width 15.9 % (11.5-14.5); Segmented Neutrophils % 51.3 %; White Blood Count 7.5 K/mcL (4.3-11.1)
[2018-10-22 05:53] LABS: INR 1.6; Prothrombin Time 17.8 Seconds (9.4-12.1)
[2018-10-22 06:04] LABS: BUN/Creatinine Ratio 19 (6-26); Blood Urea Nitrogen 16 mg/dL (8-23); Calcium 8.6 mg/dL (8.6-10.3); Carbon Dioxide 29 mEq/L (23-29); Chloride 103 mEq/L (98-107); Glucose 127 mg/dL (70-105); Magnesium 1.8 mg/dL (1.6-2.6); Osmolality,Calculated 295 (280-300); Phosphorous 3.5 mg/dL (2.7-4.5); Potassium 3.6 mEq/L (3.5-5.1); Sodium 141 mEq/L (136-145); eGFR For African Americans > 60 (> 60); eGFR For Non-African Americans > 60 (> 60)
[2018-10-22] MEDS: Budesonide/Formoterol 160/4.5 1 PUFF INH IH SCH ×2 (07:42→19:51)
[2018-10-22] MEDS: Insulin LISPRO 300 UNITS/3 ML VIAL SQ SCH ×3 (07:45→17:19)
[2018-10-22] MEDS: Furosemide 40 MG/4 ML VIAL IVP SCH ×2 (09:30→17:18)
[2018-10-22] MEDS: Gabapentin 300 MG CAPSULE PO SCH ×2 (09:31→20:50)
[2018-10-22] MEDS: Metoprolol XL (24 HR) Succ 50 MG TAB.ER.24H PO SCH (09:31)
[2018-10-22] MEDS: Aspirin 81 MG TAB.CHEW PO SCH (09:31)
[2018-10-22] MEDS: predniSONE 20 MG TABLET PO SCH (09:31)
[2018-10-22] MEDS: *HR* LORazepam 0.5 MG TABLET PO SCH ×2 (09:31→20:51)
[2018-10-22] MEDS: FLUoxetine 20 MG CAPSULE PO SCH (09:31)
--- NOTE | 2018-10-22 10:51 | Palliative Progress Note ---
Date of Encounter: 10/22/18 Time of Encounter: 09:00 - Assessment and plan (1) Goals of care, counseling/discussion Current Visit: No Status: Acute Assessment and plan: Patient's goals remain to return home and re-enroll with hospice once stable. [place] [facility] aware, and will continue patient's educatin and monitoring in an attempt to prevent re-admissions. educated patient on different ways he can avoid coming to the hospital, including the use of BiPAP and anxiety medication at home, daily weight, fluid restriction, use of lasix for diuresis, calling hospice solution analyst line for help and guidance. Patient demonstrated understanding. [id number]: Advanced care planning discussion. Patient currently has full code order, but based on our conversation in July, he had expressed the wish to be DNRCC. Discussed CODE STATUS with patient, he stated that when he was admitted he did not want to disclose his DNR status, for fear that he will not receive treatment. Explained to patient that he does not need to change his CODE STATUS to receive treatment, he just needs to share with the physicians how much he wants done, and at the same time he can remain DNR CC. Patient agrees and decides he wants order to be changed back to DNR CC. There are 2 [place] state forms scanned into chart documenting DNR CC status. Thank you for allowing [facility] to participate in the care of this patient, will sign off. Please re-consult prn. (2) Anasarca Current Visit: Yes Status: Chronic Assessment and plan: improving. Diuresis management per primary team. (3) Chronic respiratory failure with hypoxia Current Visit: No Status: Chronic (4) Palliative care encounter Current Visit: No Status: Acute - Time Spent With Patient Total time spent is greater than 50% in coordination of care (as documented) at patient's floor/unit and/or counseling patient: 25 - 35 minutes - Subjective Interval history: Patient was sitting in bed, feeling better today. Hands and feet feel less swollen, and he had a good night of sleep. - Constitutional Vitals: Abnormal lab results RBC 3.79 M/mcL (4.19-5.50) L 10/22/18 05:07 Hgb 11.0 g/dL (12.9-16.9) L 10/22/18 05:07 Hct 35.4 % (37.5-50.1) L 10/22/18 05:07 MCHC 31.1 g/dL (31.6-35.5) L 10/22/18 05:07 RDW 15.9 % (11.5-14.5) H 10/22/18 05:07 PT 17.8 Seconds (9.4-12.1) H 10/22/18 05:07 Carbon Dioxide 31 mEq/L (23-29) H 10/21/18 04:52 Glucose 127 mg/dL (70-105) H 10/22/18 05:07 POC Glucose 125 mg/dL (70-99) H 10/22/18 07:33 6.5 % (-5.6) H 10/21/18 04:52 Magnesium 1.5 mg/dL (1.6-2.6) L 10/21/18 04:52 33 Units/L (34-104) L 10/21/18 04:52 B-Natriuretic Peptide 118 pg/mL (Less than 100) H 10/20/18 19:10 5.7 g/dL (6.4-8.9) L 10/21/18 04:52 3.4 g/dL (3.5-5.7) L 10/21/18 04:52 2.3 g/dL (2.4-3.5) L 10/21/18 04:52 15 mg/dL (Negative) H 10/21/18 06:10 Exam: General appearance: Present: morbidly obese, no acute distress - Head Head Exam: Present: atraumatic - Eye Eye exam: Present: EOMI, normal appearance - ENT ENT exam: Present: mucous membranes moist - Neck Neck exam: Present: normal inspection - Respiratory Respiratory exam: Present: accessory muscle use, decreased breath sounds, wheezes - Cardiovascular Cardiovascular exam: Present: RRR, +S1, +S2 - GI/Abdominal Exam GI/Abdominal exam: Present: normal bowel sounds. Absent: tenderness - Extremities Exam Extremities exam: Present: full ROM Additional comments: diffused edema - Neurological Exam Neurological exam: Present: alert, oriented X3, no focal deficits - Skin Additional comments: b/l LE venous stasis dermatitis Palliative Quality Palliative Quality: Screen for Code Status: Yes, Screen for Goals of Care: Yes, Screen for Pain: Yes, If Pain Regimen Started, Initiate Bowel Regimen: Yes, Screen for Nausea/Vomitting: Yes Code Status: 10/21/18 03:37 Resuscitation Status: Active [RES] Routine Comment: Resuscitation Status: Full Code - Labs CBC & Chem 7: 10/22/18 05:07 10/22/18 05:07 Labs: Laboratory Results - last 24 hr 10/21/18 10/21/18 10/21/18 04:52 11:36 15:53 WBC RBC Hgb Hct MCV MCH MCHC RDW Plt Count MPV Immature Gran % Seg Neutrophils % Lymphocytes % Monocytes % Eosinophils % Basophils % Neutrophils # Lymphocytes # Monocytes # Eosinophils # Basophils # PT INR Sodium Potassium Chloride Carbon Dioxide BUN Creatinine Est GFR ( Amer) Est GFR (Non-Af Amer) BUN/Creatinine Ratio Glucose POC Glucose 127 H 158 H Est Mean Plasma Glucose 140 Hemoglobin A1c 6.5 H Calculated Osmolality Calcium Phosphorus Magnesium Urine Creatinine Urine Microalbumin Microalb/Creat Ratio Protein/Creatinin Ratio Urine Total Protein 10/21/18 10/21/18 10/22/18 20:39 22:40 05:07 WBC RBC Hgb Hct MCV MCH MCHC RDW Plt Count MPV Immature Gran % Seg Neutrophils % Lymphocytes % Monocytes % Eosinophils % Basophils % Neutrophils # Lymphocytes # Monocytes # Eosinophils # Basophils # PT 17.8 H INR 1.6 Sodium Potassium Chloride Carbon Dioxide BUN Creatinine Est GFR ( Amer) Est GFR (Non-Af Amer) BUN/Creatinine Ratio Glucose POC Glucose 155 H Est Mean Plasma Glucose Hemoglobin A1c Calculated Osmolality Calcium Phosphorus Magnesium Urine Creatinine 97 Urine Microalbumin 8 Microalb/Creat Ratio 8 Protein/Creatinin Ratio 0.10 Urine Total Protein 10 10/22/18 10/22/18 10/22/18 05:07 05:07 07:33 WBC 7.5 RBC 3.79 L Hgb 11.0 L Hct 35.4 L MCV 93.4 MCH 29.0 MCHC 31.1 L RDW 15.9 H Plt Count 156 MPV 10.4 Immature Gran % 0.4 Seg Neutrophils % 51.3 Lymphocytes % 36.4 Monocytes % 10.8 Eosinophils % 0.7 Basophils % 0.4 Neutrophils # 3.9 Lymphocytes # 2.7 Monocytes # 0.8 Eosinophils # 0.1 Basophils # 0.0 PT INR Sodium 141 Potassium 3.6 Chloride 103 Carbon Dioxide 29 BUN 16 Creatinine 0.86 Est GFR ( Amer) > 60 Est GFR (Non-Af Amer) > 60 BUN/Creatinine Ratio 19 Glucose 127 H POC Glucose 125 H Est Mean Plasma Glucose Hemoglobin A1c Calculated Osmolality 295 Calcium 8.6 Phosphorus 3.5 Magnesium 1.8 Urine Creatinine Urine Microalbumin Microalb/Creat Ratio Protein/Creatinin Ratio Urine Total Protein - ABG Interpretation ABG results: PT/INR, D-dimer PT 17.8 Seconds (9.4-12.1) H 10/22/18 05:07 Palliative Scale - Palliative Performance Scale How ambulatory is this patient?: Mainly sit / lie What is patient's level of activity and evidence of disease?: Unable hobby/housework, Significant disease How much self-care assistance does patient require?: Considerable assistance required How much oral intake does the patient have?: Normal or reduced What is this patient's level of consciousness?: Full Palliative Performance Score: 60 % Consult Discharge Plan - Plan Referrals: Fartun Quinones, [facility] [Primary Care Provider] -
--- NOTE | 2018-10-22 13:05 | Internal Med Progress Note ---
Hospitalist Progress Note - Encounter Date of Encounter: 10/22/18 Time of Encounter: 13:02 - Subjective Interval History: I have seen and evaluated the patient bedside. She reports significant improvement in his breathing today, denies chest pain, lightheadedness or abdominal pain. - Exam Vitals: Temp Pulse Resp BP Pulse Ox 97.5 F L 115 18 97/58 96 10/22/18 11:34 10/22/18 11:34 10/22/18 11:34 10/22/18 11:34 10/22/18 11:34 Exam: Vitals: Reviewed. General: Alert and oriented 4. In no acute distress. Cardiovascular: Irregularly irregular, normal S1 & S2, no rubs, murmurs or gallops. Lungs: Mildly scatter expiratory wheezes. No rales or crackles. Abdomen: Obese, Soft, non-tender, no rigidity. Extremities: 2+ edema in the lower extr b/l. Neurological: Normal cognition and motor skills. Rest of the physical exam is non contributory - Assessment and Plan (1) Acute and chronic respiratory failure Current Visit: Yes Status: Resolved Assessment and Plan: Patient with scatter bilateral expiratory wheezing. Continue prednisone 40 mg by mouth daily, and bronchodilators. On Symbicort. (2) COPD (chronic obstructive pulmonary disease) Current Visit: Yes Status: Chronic Assessment and Plan: Plan of care as above. (3) Chronic diastolic (congestive) heart failure Current Visit: Yes Status: Acute Assessment and Plan: Total negative balance of 1.5 L. Continue fluid restriction to 1.5 L a day. On furosemide 40 mg IV twice a day. Strict intake and output and daily weight. (4) Anasarca Current Visit: Yes Status: Chronic (5) Anxiety Current Visit: No Status: Chronic Assessment and Plan: Patient is on lorazepam 0.5 mg by mouth twice a day. (6) BECK treated with BiPAP Current Visit: No Status: Chronic Assessment and Plan: Nocturnal BiPAP (7) Atrial fibrillation Current Visit: No Status: Chronic Assessment and Plan: Rate controlled on metoprolol 50 mg by mouth daily. On warfarin per pharmacy protocol. (8) CAD (coronary artery disease) Current Visit: No Status: Chronic Assessment and Plan: On aspirin 81 mg by mouth daily. (9) Diabetes mellitus Current Visit: No Status: Chronic Assessment and Plan: Blood sugar is well controlled on the lispro high dose sliding scale before meals. Carbs controlled diet. (10) Hypothyroidism Current Visit: No Status: Chronic Assessment and Plan: Patient is on levothyroxine 200 mcg/PO and 75 mcg/pO daily (11) Morbid obesity Current Visit: No Status: Chronic DVT Prophylaxis: Intermittent pneumatic compression. - Summary of Assessment and Plan Summary of Assessment and Plan: Patient to continue in the hospital due to acute diastolic heart failure exacerbation on IV diuretics. - Time Spent with Patient Total time spent is greater than 50% in coordination of care (as documented) at patient's floor/unit and/or counseling patient: Greater than 35 minutes (40) Plan of Care Discussed with: patient (and the nurse) Internal Medicine: Result - Labs CBC & Chem 7: 10/22/18 05:07 10/22/18 05:07 Labs: Short CBC 10/22/18 Range/Units 05:07 WBC 7.5 (4.3-11.1) K/mcL Hgb 11.0 L (12.9-16.9) g/dL Hct 35.4 L (37.5-50.1) % Plt Count 156 (140-400) K/mcL Neutrophils # 3.9 (1.6-8.9) K/mcL BMP 10/22/18 05:07 Sodium 141 Potassium 3.6 Chloride 103 Carbon Dioxide 29 BUN 16 Creatinine 0.86 Glucose 127 H Calcium 8.6 - ABG Interpretation ABG results: PT/INR, D-dimer PT 17.8 Seconds (9.4-12.1) H 10/22/18 05:07 Consult Discharge Plan - Plan Referrals: Fartun Quinones, TREASURY DIRECTOR [Primary Care Provider] - (1) Acute and chronic respiratory failure Qualifiers: Respiratory failure complication: hypoxia Qualified Code(s): J96.21 - Acute and chronic respiratory failure with hypoxia (2) COPD (chronic obstructive pulmonary disease) Qualifiers: COPD type: unspecified COPD Qualified Code(s): J44.9 - Chronic obstructive pulmonary disease, unspecified (7) Atrial fibrillation Qualifiers: Atrial fibrillation type: paroxysmal Qualified Code(s): I48.0 - Paroxysmal atrial fibrillation (8) CAD (coronary artery disease) Qualifiers: Coronary Disease-Associated Artery/Lesion type: [place] artery [place] vs. transplanted heart: [place] heart Associated angina: without angina Qualified Code(s): I25.10 - Atherosclerotic heart disease of [place] coronary artery without angina pectoris (9) Diabetes mellitus Qualifiers: Diabetes mellitus type: type 2 Diabetes mellitus skilled nursing insulin use: with emt intermediate use Diabetes mellitus complication status: without complication Qualified Code(s): E11.9 - Type 2 diabetes mellitus without complications; Z79.4 - shelter (current) use of insulin (10) Hypothyroidism Qualifiers: Hypothyroidism type: postablative Qualified Code(s): E89.0 - Postprocedural hypothyroidism
--- NOTE | 2018-10-22 17:41 | Nephrology Progress Note ---
Date of Encounter: 10/22/18 Time of Encounter: 12:00 - Assessment and Plan (1) Acute and chronic respiratory failure Current Visit: Yes Status: Resolved Agree with current diuretic regimen Continue strict I/Os, UOP noted over 2 liters in the past 24hrs Continue fuid restriction Urine negative for proteinuria Compressive stockings advised for chronic venous insuffiency Will sign off, please reconsult prn Qualifiers: Respiratory failure complication: hypoxia Qualified Code(s): J96.21 - Acute and chronic respiratory failure with hypoxia (2) Chronic diastolic (congestive) heart failure Current Visit: Yes Status: Acute As above (3) Anasarca Current Visit: Yes Status: Chronic As above Subjective Interval history: Pt seen and examined feeling better with less LE edema and less SOB. Objective - Vital Signs Vital signs: Vital Signs Temp Pulse Resp BP Pulse Ox 10/22/18 16:14 98.0 F 75 16 97/59 96 10/22/18 11:34 97.5 F L 115 18 97/58 96 10/22/18 07:44 16 97 10/22/18 07:29 98.1 F 86 19 90/67 97 10/22/18 05:25 13 99 10/22/18 03:32 97.2 F L 84 20 104/67 97 10/22/18 01:03 76 19 155/88 100 10/21/18 23:01 26 98 10/21/18 20:40 98.4 F 83 18 110/61 97 Intake and Output 10/22/18 10/22/18 10/22/18 07:59 15:59 23:59 Intake Total 360 / 360 Balance 360 / 360 Intake: Oral 360 / 360 Other: Meal Breakfast Percent of Meal Consumed 100% Blood Glucose* 125 104 160 - General Appearance General appearance: Present: obese, chronically ill EENT: Present: ATNC, mucous membranes moist Neck: Present: no JVD, supple Additional Comments: improved areation bilat Cardiology: Present: edema (LE bilat), normal S1, normal S2 Gastrointestinal: Present: no tenderness, no guarding, obese Integumentary: Present: hyperpigmentation, chronic venous stasis Neurologic: Present: no focal deficit Musculoskeletal: Present: no deformities Psychiatric: Present: mood/affect appropriate, cooperative - Lab 10/22/18 05:07 10/22/18 05:07 Most recent lab results 10/22/18 05:07 Calcium 8.6 Phosphorus 3.5 Magnesium 1.8 Consult Discharge Plan - Plan Referrals: Fartun Quinones, HEMMING AND TACKING MACHINE OPERATOR [Primary Care Provider] -
[2018-10-22] MEDS ORDERED: *HR* Warfarin 2 MG TABLET PO ONE (18:00)
[2018-10-22] MEDS: traZODone 50 MG TABLET PO SCH (20:51)
[2018-10-22] MEDS: *HR* OxyCODONE/APAP 10/325 TABLET PO PRN (21:12)
[2018-10-23 04:30] LABS: INR 1.5; Prothrombin Time 16.5 Seconds (9.4-12.1)
[2018-10-23 04:38] LABS: BUN/Creatinine Ratio 23 (6-26); Blood Urea Nitrogen 20 mg/dL (8-23); Calcium 8.6 mg/dL (8.6-10.3); Carbon Dioxide 31 mEq/L (23-29); Chloride 104 mEq/L (98-107); Glucose 119 mg/dL (70-105); Magnesium 1.8 mg/dL (1.6-2.6); Osmolality,Calculated 296 (280-300); Phosphorous 3.3 mg/dL (2.7-4.5); Potassium 4.2 mEq/L (3.5-5.1); Sodium 141 mEq/L (136-145); eGFR For African Americans > 60 (> 60); eGFR For Non-African Americans > 60 (> 60)
[2018-10-23] MEDS: Budesonide/Formoterol 160/4.5 1 PUFF INH IH SCH ×2 (07:38→20:12)
[2018-10-23] MEDS: Insulin LISPRO 300 UNITS/3 ML VIAL SQ SCH ×3 (08:52→16:52)
[2018-10-23] MEDS ORDERED: predniSONE 10 MG TABLET PO SCH (09:00)
[2018-10-23] MEDS: FLUoxetine 20 MG CAPSULE PO SCH (09:40)
[2018-10-23] MEDS: Aspirin 81 MG TAB.CHEW PO SCH (09:41)
[2018-10-23] MEDS: *HR* LORazepam 0.5 MG TABLET PO SCH ×2 (09:41→21:52)
[2018-10-23] MEDS: predniSONE 20 MG TABLET PO SCH (09:41)
[2018-10-23] MEDS: Metoprolol XL (24 HR) Succ 50 MG TAB.ER.24H PO SCH (09:41)
[2018-10-23] MEDS: *HR* OxyCODONE/APAP 10/325 TABLET PO PRN ×3 (09:41→22:08)
[2018-10-23] MEDS: Gabapentin 300 MG CAPSULE PO SCH ×2 (09:41→21:53)
[2018-10-23] MEDS: Furosemide 40 MG/4 ML VIAL IVP SCH ×2 (09:47→17:14)
--- NOTE | 2018-10-23 11:11 | Internal Med Progress Note ---
Hospitalist Progress Note - Encounter Date of Encounter: 10/23/18 Time of Encounter: 11:09 - Subjective Interval History: I have seen and evaluated at bedside. patient continues to reports improvement on his breathing, reports feeling close to his base line. denies chest pain, nausea or vomiting. denies abdominal pain or diarrhea. - Exam Vitals: Temp Pulse Resp BP Pulse Ox 98.1 F 74 18 103/63 96 10/23/18 07:46 10/23/18 07:46 10/23/18 07:46 10/23/18 07:46 10/23/18 07:46 Exam: Vitals: Reviewed. General: Alert and oriented 4. In no acute distress. Cardiovascular: Irregularly irregular, normal S1 & S2, no rubs, murmurs or gallops. Lungs: CTA b/l, no wheezes, rales or crackles. Abdomen: Obese, Soft, non-tender, no rigidity. NABS in all 4 quadrants Extremities: 2+ edema in the lower extr b/l. Neurological: No focal neurological deficits Rest of the physical exam is non contributory - Assessment and Plan (1) Acute and chronic respiratory failure Current Visit: Yes Status: Resolved Assessment and Plan: chest is clear to auscultation. Plan On prednisone 30 mg by mouth daily continue bronchodilators Q4RT On Symbicort Incentive spirometry. (2) COPD (chronic obstructive pulmonary disease) Current Visit: Yes Status: Chronic Assessment and Plan: Plan of care as above. (3) Chronic diastolic (congestive) heart failure Current Visit: Yes Status: Acute Assessment and Plan: acute on chronic HFpEF. total fluids balance negative for 1.5 litters. Plan continue fluids restrictive strategies to 1.5 litters a day furosemide 40mg/IV BID (4) Anxiety Current Visit: No Status: Chronic Assessment and Plan: continue lorazepam 0.5 mg by mouth twice a day. (5) BECK treated with BiPAP Current Visit: No Status: Chronic Assessment and Plan: On nocturnal Bipap (6) Atrial fibrillation Current Visit: No Status: Chronic Assessment and Plan: Rate controlled. Plan continue metoprolol 50 mg by mouth daily. On warfarin per pharmacy protocol. (7) CAD (coronary artery disease) Current Visit: No Status: Chronic Assessment and Plan: On aspirin 81 mg by mouth daily. (8) Diabetes mellitus Current Visit: No Status: Chronic Assessment and Plan: Blood sugar is well controlled on the lispro high dose sliding scale before meals. Carbs controlled diet. (9) Hypothyroidism Current Visit: No Status: Chronic Assessment and Plan: On levothyroxine 200 mcg/PO and 75 mcg/pO daily (10) Morbid obesity Current Visit: No Status: Chronic DVT Prophylaxis: Intermittent pneumatic compression - Summary of Assessment and Plan Summary of Assessment and Plan: patient to remain in the hospital due to acute HFpEF exacerbation, on IV diuretics. potential discharge in 1-2 days - Time Spent with Patient Total time spent is greater than 50% in coordination of care (as documented) at patient's floor/unit and/or counseling patient: Greater than 35 minutes (40) Plan of Care Discussed with: patient (and the nurse) Internal Medicine: Result - Labs CBC & Chem 7: 10/22/18 05:07 10/23/18 03:43 Labs: BMP 10/23/18 03:43 Sodium 141 Potassium 4.2 Chloride 104 Carbon Dioxide 31 H BUN 20 Creatinine 0.88 Glucose 119 H Calcium 8.6 - ABG Interpretation ABG results: PT/INR, D-dimer PT 16.5 Seconds (9.4-12.1) H 10/23/18 03:43 - Impressions Impressions Abdomen/Pelvis CT 10/22/18 13:00 IMPRESSION: 1. No acute intra-abdominal or intrapelvic process. 2. Bilateral fat-containing inguinal hernia. 3. Small fat-containing inguinal hernia. D/ / 10/22/2018 15:26:24 Marcella Batres MD / fox Interpreting Provider: Marcella Batres MD Consult Discharge Plan - Plan Referrals: Fartun Quinones, DAY WORKER [Primary Care Provider] - (1) Acute and chronic respiratory failure Qualifiers: Respiratory failure complication: hypoxia Qualified Code(s): J96.21 - Acute and chronic respiratory failure with hypoxia (2) COPD (chronic obstructive pulmonary disease) Qualifiers: COPD type: unspecified COPD Qualified Code(s): J44.9 - Chronic obstructive pulmonary disease, unspecified (6) Atrial fibrillation Qualifiers: Atrial fibrillation type: paroxysmal Qualified Code(s): I48.0 - Paroxysmal atrial fibrillation (7) CAD (coronary artery disease) Qualifiers: Coronary Disease-Associated Artery/Lesion type: [place] artery [place] vs. transplanted heart: [place] heart Associated angina: without angina Qualified Code(s): I25.10 - Atherosclerotic heart disease of [place] coronary artery without angina pectoris (8) Diabetes mellitus Qualifiers: Diabetes mellitus type: type 2 Diabetes mellitus ad terminal makeup operator insulin use: with ad terminal makeup operator use Diabetes mellitus complication status: without complication Qualified Code(s): E11.9 - Type 2 diabetes mellitus without complications; Z79.4 - jail (current) use of insulin (9) Hypothyroidism Qualifiers: Hypothyroidism type: postablative Qualified Code(s): E89.0 - Postprocedural hypothyroidism
[2018-10-23] MEDS ORDERED: *HR* Warfarin 2 MG TABLET PO ONE (18:00)
[2018-10-23] MEDS: traZODone 50 MG TABLET PO SCH (21:52)
[2018-10-24 06:42] LABS: INR 1.5; Prothrombin Time 16.8 Seconds (9.4-12.1)
[2018-10-24 06:52] LABS: BUN/Creatinine Ratio 33 (6-26); Blood Urea Nitrogen 28 mg/dL (8-23); Calcium 8.6 mg/dL (8.6-10.3); Carbon Dioxide 30 mEq/L (23-29); Chloride 103 mEq/L (98-107); Glucose 110 mg/dL (70-105); Magnesium 1.7 mg/dL (1.6-2.6); Osmolality,Calculated 298 (280-300); Phosphorous 3.5 mg/dL (2.7-4.5); Sodium 141 mEq/L (136-145); eGFR For African Americans > 60 (> 60); eGFR For Non-African Americans > 60 (> 60)
[2018-10-24] MEDS: Insulin LISPRO 300 UNITS/3 ML VIAL SQ SCH ×3 (08:33→17:05)
[2018-10-24] MEDS: FLUoxetine 20 MG CAPSULE PO SCH (08:42)
[2018-10-24] MEDS: *HR* LORazepam 0.5 MG TABLET PO SCH ×2 (08:42→20:37)
[2018-10-24] MEDS: Aspirin 81 MG TAB.CHEW PO SCH (08:42)
[2018-10-24] MEDS: Gabapentin 300 MG CAPSULE PO SCH ×2 (08:43→20:37)
[2018-10-24] MEDS: predniSONE 20 MG TABLET PO SCH (08:43)
[2018-10-24] MEDS: *HR* OxyCODONE/APAP 10/325 TABLET PO PRN ×2 (08:43→17:05)
[2018-10-24] MEDS: Metoprolol XL (24 HR) Succ 50 MG TAB.ER.24H PO SCH (08:43)
[2018-10-24] MEDS: Furosemide 40 MG/4 ML VIAL IVP SCH ×2 (08:43→17:05)
[2018-10-24] MEDS: Budesonide/Formoterol 160/4.5 1 PUFF INH IH SCH ×2 (10:15→22:12)
--- NOTE | 2018-10-24 11:57 | Internal Med Progress Note ---
Hospitalist Progress Note - Encounter Date of Encounter: 10/24/18 Time of Encounter: 11:54 - Subjective Interval History: I have seen and evaluated the patient at bedside. Patient reports improvement on his breathing, states that is almost back to his baseline. Denies abdominal pain, chest pain, lightheadedness, dizziness. - Exam Vitals: Temp Pulse Resp BP Pulse Ox 97.5 F L 77 16 112/69 96 10/24/18 11:48 10/24/18 11:48 10/24/18 11:48 10/24/18 11:48 10/24/18 11:48 Exam: Vitals: Reviewed. General: Alert and oriented 4. In no acute distress. Cardiovascular: Irregularly irregular, normal S1 & S2, no rubs, murmurs or gallops. Lungs: Decreased breath sounds bilaterally, no wheezes, rales or crackles. Abdomen: Obese, Soft, non-tender, no rigidity. NABS in all 4 quadrants Extremities: 2+ edema in the lower extr b/l. Neurological: No focal neurological deficits Rest of the physical exam is non contributory - Assessment and Plan (1) Chronic diastolic (congestive) heart failure Current Visit: Yes Status: Acute Assessment and Plan: Improving acute on chronic HFpEF. total fluids balance negative for 3.0 litters. Plan On fluids restrictive strategies to 1.5 litters a day Continue furosemide 40mg/IV BID (2) Acute and chronic respiratory failure Current Visit: Yes Status: Resolved Assessment and Plan: chest is clear to auscultation. Plan Continue prednisone 30 mg by mouth daily x1 more day. bronchodilators Q4RT On Symbicort Incentive spirometry. (3) COPD (chronic obstructive pulmonary disease) Current Visit: Yes Status: Chronic Assessment and Plan: Plan of care as above. (4) Anxiety Current Visit: No Status: Chronic Assessment and Plan: On lorazepam 0.5 mg by mouth twice a day. (5) BECK treated with BiPAP Current Visit: No Status: Chronic Assessment and Plan: Continue nocturnal Bipap (6) Atrial fibrillation Current Visit: No Status: Chronic Assessment and Plan: Rate controlled. patient is on metoprolol 50 mg by mouth daily. and warfarin per pharmacy protocol for secondary stroke prevention (7) CAD (coronary artery disease) Current Visit: No Status: Chronic Assessment and Plan: On aspirin 81 mg by mouth daily. (8) Diabetes mellitus Current Visit: No Status: Chronic Assessment and Plan: Blood sugar is well controlled continue current management (9) Hypothyroidism Current Visit: No Status: Chronic Assessment and Plan: On levothyroxine 200 mcg/PO and 75 mcg/pO daily (10) Morbid obesity Current Visit: No Status: Chronic DVT Prophylaxis: intermittent pneumatic compression - Summary of Assessment and Plan Summary of Assessment and Plan: patient to remain in the hospital due to HFpEF on IV diuretics - Time Spent with Patient Total time spent is greater than 50% in coordination of care (as documented) at patient's floor/unit and/or counseling patient: Greater than 35 minutes (40) Plan of Care Discussed with: patient (and the nurse) Internal Medicine: Result - Labs CBC & Chem 7: 10/22/18 05:07 10/24/18 06:09 Labs: BMP 10/24/18 06:09 Sodium 141 Potassium 4.0 Chloride 103 Carbon Dioxide 30 H BUN 28 H Creatinine 0.85 Glucose 110 H Calcium 8.6 - ABG Interpretation ABG results: PT/INR, D-dimer PT 16.8 Seconds (9.4-12.1) H 10/24/18 06:09 Consult Discharge Plan - Plan Referrals: Fartun Quinones, SURFACE GRINDER TENDER [Primary Care Provider] - (2) Acute and chronic respiratory failure Qualifiers: Respiratory failure complication: hypoxia Qualified Code(s): J96.21 - Acute and chronic respiratory failure with hypoxia (3) COPD (chronic obstructive pulmonary disease) Qualifiers: COPD type: unspecified COPD Qualified Code(s): J44.9 - Chronic obstructive pulmonary disease, unspecified (6) Atrial fibrillation Qualifiers: Atrial fibrillation type: paroxysmal Qualified Code(s): I48.0 - Paroxysmal atrial fibrillation (7) CAD (coronary artery disease) Qualifiers: Coronary Disease-Associated Artery/Lesion type: [place] artery [place] vs. transplanted heart: [place] heart Associated angina: without angina Qualified Code(s): I25.10 - Atherosclerotic heart disease of [place] coronary artery without angina pectoris (8) Diabetes mellitus Qualifiers: Diabetes mellitus type: type 2 Diabetes mellitus exterminator insulin use: with senior living use Diabetes mellitus complication status: without complication Qualified Code(s): E11.9 - Type 2 diabetes mellitus without complications; Z79.4 - truck terminal manager (current) use of insulin (9) Hypothyroidism Qualifiers: Hypothyroidism type: postablative Qualified Code(s): E89.0 - Postprocedural hypothyroidism
[2018-10-24] MEDS ORDERED: *HR* Warfarin 10 MG TABLET PO ONE (18:00)
[2018-10-24] MEDS: traZODone 50 MG TABLET PO SCH (20:37)
[2018-10-25 06:25] LABS: INR 1.7
[2018-10-25 06:39] LABS: BUN/Creatinine Ratio 38 (6-26); Blood Urea Nitrogen 33 mg/dL (8-23); Calcium 8.6 mg/dL (8.6-10.3); Carbon Dioxide 31 mEq/L (23-29); Chloride 102 mEq/L (98-107); Glucose 98 mg/dL (70-105); Magnesium 1.7 mg/dL (1.6-2.6); Osmolality,Calculated 299 (280-300); Phosphorous 3.4 mg/dL (2.7-4.5); Potassium 4.2 mEq/L (3.5-5.1); Sodium 141 mEq/L (136-145); eGFR For African Americans > 60 (> 60); eGFR For Non-African Americans > 60 (> 60)
[2018-10-25] MEDS: Budesonide/Formoterol 160/4.5 1 PUFF INH IH SCH (07:37)
[2018-10-25] MEDS: Insulin LISPRO 300 UNITS/3 ML VIAL SQ SCH (08:32)
[2018-10-25] MEDS: Furosemide 40 MG/4 ML VIAL IVP SCH (08:45)
[2018-10-25] MEDS: Metoprolol XL (24 HR) Succ 50 MG TAB.ER.24H PO SCH (08:45)
[2018-10-25] MEDS: *HR* LORazepam 0.5 MG TABLET PO SCH (08:45)
[2018-10-25] MEDS: Aspirin 81 MG TAB.CHEW PO SCH (08:46)
[2018-10-25] MEDS: predniSONE 20 MG TABLET PO SCH (08:46)
[2018-10-25] MEDS: Gabapentin 300 MG CAPSULE PO SCH (08:46)
[2018-10-25] MEDS: FLUoxetine 20 MG CAPSULE PO SCH (08:46)
[2018-10-25] MEDS ORDERED: predniSONE 20 MG TABLET PO SCH (09:00)
--- NOTE | 2018-10-25 10:20 | Discharge Summary ---
Orders not resulted at time of discharge: Pending orders 10/20/18 18:37 ECG 12 lead ECG [ECG] Stat 10/26/18 04:00 INR/PT [Prothrombin Time INR] [COAG] AM 0400 Date of Encounter: 10/25/18 Time of Encounter: 10:18 - Discharge Diagnosis (1) Chronic diastolic (congestive) heart failure Priority: Primary Status: Acute (2) Acute and chronic respiratory failure Priority: Secondary Status: Resolved Qualifiers: Respiratory failure complication: hypoxia Qualified Code(s): J96.21 - Acute and chronic respiratory failure with hypoxia (3) COPD (chronic obstructive pulmonary disease) Priority: Secondary Status: Chronic Qualifiers: COPD type: unspecified COPD Qualified Code(s): J44.9 - Chronic obstructive pulmonary disease, unspecified (4) Anxiety Priority: Secondary Status: Chronic (5) BECK treated with BiPAP Priority: Secondary Status: Chronic (6) Atrial fibrillation Priority: Secondary Status: Chronic Qualifiers: Atrial fibrillation type: paroxysmal Qualified Code(s): I48.0 - Paroxysmal atrial fibrillation (7) CAD (coronary artery disease) Priority: Secondary Status: Chronic Qualifiers: Coronary Disease-Associated Artery/Lesion type: [place] artery [place] vs. transplanted heart: [place] heart Associated angina: without angina Qualified Code(s): I25.10 - Atherosclerotic heart disease of [place] coronary artery without angina pectoris (8) Diabetes mellitus Priority: Secondary Status: Chronic Qualifiers: Diabetes mellitus type: type 2 Diabetes mellitus lobsterman insulin use: with lobsterman use Diabetes mellitus complication status: without complication Qualified Code(s): E11.9 - Type 2 diabetes mellitus without complications; Z79.4 - halfway (current) use of insulin (9) Hypothyroidism Priority: Secondary Status: Chronic Qualifiers: Hypothyroidism type: postablative Qualified Code(s): E89.0 - Postprocedural hypothyroidism (10) Morbid obesity Priority: Secondary Status: Chronic Hospital course: Mr. Davila is a 63 year old male PMH of asthma, atrial fibrillation, CHF, COPD, coronary artery disease, diabetes, hyperlipidemia, hypertension, peripheral artery disease, and hypothyroidism. who presents to ER with complaints of significant lower extremity edema, weeping drainage from the legs, worsening dyspnea, chest tightness, and worsening anxiety with his symptoms. Patient was admitted to the hospital due to acute respiratory failure, and acute HFpEF exacerbation. Patient was managed with IV diuretics and non invasive positive pressure ventilation. a total of 5 litters of fluids were removed with resolution of patient's symptoms. Patient a hemodinamycally stable to be discharged home. - Time Spent with Patient Total time spent providing and/or coordinating discharge services: Time spent: Greater than 30 minutes (35) - Discharge Medications Prescriptions: Continued Omeprazole [PriLOSEC] 20 mg PO DAILY Docusate Sodium [Stool Softener] 100 mg PO BID Pentoxifylline [TRENtal] 400 mg PO BID Nitroglycerin [Nitrostat] 0.4 mg SL Q5M PRN PRN Reason: Chest Pain Metformin HCl [Glucophage] 1,000 mg PO DAILY Cyclobenzaprine [Flexeril] 10 mg PO TID PRN PRN Reason: Muscle Spasm Budesonide/Formoterol 160/4.5 [Symbicort 160/4.5] 2 puff IH BIDR hydrOXYzine HCl [Hydroxyzine HCl] 25 mg PO BID PRN PRN Reason: Anxiety Gabapentin [Neurontin] 600 mg PO BID Atorvastatin [Lipitor] 40 mg PO HS FLUoxetine HCl [Prozac] 20 mg PO QAM Aspirin 81 mg PO DAILY Ipratropium/Albuterol Neb [Duoneb] 3 ml IH Q4HR PRN #90 inhsol PRN Reason: SOB/WHEEZE Warfarin [Coumadin] 7.5 mg PO 1800 Levothyroxine Sodium 75 mcg PO DAILY Levothyroxine Sodium [Euthyrox] 200 mcg PO DAILY Potassium Chloride 20 meq PO DAILY Metoprolol Succinate [Toprol Xl] 50 mg PO DAILY OxyCODONE/APAP 10/325 [Percocet 10/325 MG] 1 - 2 tab PO Q4H PRN PRN Reason: Pain LORazepam [Ativan] 0.5 - 1 mg PO Q4H PRN PRN Reason: Anxiety Acetaminophen [Tylenol 650mg SUPP] 650 mg RC Q4H PRN PRN Reason: PAIN/FEVER Albuterol Sulfate [Albuterol Inhaler] 2 puff PO Q4H PRN PRN Reason: Shortness Of Breath Atropine Sulfate in 0.9% NaCl [Atropine 0.01%-Ns Eye Drops] 2 drop PO Q2H PRN PRN Reason: Secretions Bumetanide 2 mg PO BID predniSONE [PredniSONE] 10 mg PO DAILY Tiotropium [Spiriva] 18 mcg IH DAILY Torsemide [Demadex] 20 mg PO BID Umeclidinium [place] [Incruse Ellipta] 1 puff PO DAILY Home Medications: Docusate Sodium [Stool Softener] 100 mg PO BID 08/04/16 [History] Metformin HCl [Glucophage] 1,000 mg PO DAILY 08/04/16 [History] Nitroglycerin [Nitrostat] 0.4 mg SL Q5M PRN 08/04/16 [History] Omeprazole [PriLOSEC] 20 mg PO DAILY 08/04/16 [History] Pentoxifylline [TRENtal] 400 mg PO BID 08/04/16 [History] Budesonide/Formoterol 160/4.5 [Symbicort 160/4.5] 2 puff IH BIDR 08/28/17 [His tory] Cyclobenzaprine [Flexeril] 10 mg PO TID PRN 08/28/17 [History] hydrOXYzine HCl [Hydroxyzine HCl] 25 mg PO BID PRN 02/21/18 [History] Gabapentin [Neurontin] 600 mg PO BID 04/29/18 [History] Aspirin 81 mg PO DAILY 07/05/18 [History] Atorvastatin [Lipitor] 40 mg PO HS 07/05/18 [History] FLUoxetine HCl [Prozac] 20 mg PO QAM 07/05/18 [History] Ipratropium/Albuterol Neb [Duoneb] 3 ml IH Q4HR PRN #90 inhsol 08/21/18 [Rx] Levothyroxine Sodium 75 mcg PO DAILY 09/09/18 [History] Levothyroxine Sodium [Euthyrox] 200 mcg PO DAILY 09/09/18 [History] Potassium Chloride 20 meq PO DAILY 09/09/18 [History] Warfarin [Coumadin] 7.5 mg PO 1800 09/09/18 [History] Metoprolol Succinate [Toprol Xl] 50 mg PO DAILY 09/10/18 [History] LORazepam [Ativan] 0.5 - 1 mg PO Q4H PRN 10/20/18 [History] OxyCODONE/APAP 10/325 [Percocet 10/325 MG] 1 - 2 tab PO Q4H PRN 10/20/18 [History] Acetaminophen [Tylenol 650mg SUPP] 650 mg RC Q4H PRN 10/21/18 [History] Albuterol Sulfate [Albuterol Inhaler] 2 puff PO Q4H PRN 10/21/18 [History] Atropine Sulfate in 0.9% NaCl [Atropine 0.01%-Ns Eye Drops] 2 drop PO Q2H PRN 10/21/18 [History] Bumetanide 2 mg PO BID 10/21/18 [History] Tiotropium [Spiriva] 18 mcg IH DAILY 10/21/18 [History] Torsemide [Demadex] 20 mg PO BID 10/21/18 [History] Umeclidinium [place] [Incruse Ellipta] 1 puff PO DAILY 10/21/18 [History] predniSONE [PredniSONE] 10 mg PO DAILY 10/21/18 [History] Allergies/Adverse Reactions: Allergy/AdvReac Type Severity Reaction Status Date / Time Amoxicillin [From Augmentin] Allergy See Verified 10/20/18 21:29 Comments clavulanic acid Allergy See Verified 10/20/18 21:29 [From Augmentin] Comments meperidine [From Demerol] Allergy See Verified 10/20/18 21:29 Comments sulfamethoxazole Allergy Rash Verified 10/20/18 21:29 [From Bactrim] trimethoprim [From Bactrim] Allergy Rash Verified 10/20/18 21:29 baclofen AdvReac See Verified 10/20/18 21:29 Comments Date of admission: 10/21/18 09:57 Primary care physician: Fartun Quinones CNP Consults: 10/21/18 03:37 Consult to Nephrology [CONS] Routine Consulting Provider: Kidney Karen/BRET/MELI/DANICA Reason for Consult: CHF; CKD Call Completed: No Consult to Palliative Care [CONS] Routine Comment: Consulting Provider: Palliative Care Karen Reason for Consult: goals of care; was in hospice; continues to come to the hospital Call Completed: No 10/21/18 08:08 Consult to Nurse Navigator [CONS] Routine Comment: chf - Constitutional Vitals: Temp Pulse Resp BP Pulse Ox 97.5 F L 67 18 148/75 98 10/25/18 07:30 10/25/18 07:30 10/25/18 07:38 10/25/18 07:30 10/25/18 07:38 General appearance: Present: cooperative, mild distress, A&O X 3, morbidly obese, pleasant, answers questions appropriately Exam: Vitals: Reviewed. General: Alert and oriented 4. In no acute distress. Cardiovascular: Irregularly irregular, normal S1 & S2, no rubs, murmurs or gallops. Lungs: Decreased breath sounds bilaterally, no wheezes, rales or crackles. Abdomen: Obese, Soft, non-tender, no rigidity. NABS in all 4 quadrants Extremities: 2+ edema in the lower extr b/l. Neurological: No focal neurological deficits Rest of the physical exam is non contributory - Patient Status Disposition: Home Health Service Condition: Fair Functional capacity at discharge: uses cane/walker Overall status at discharge: patient is progressing back to baseline - Discharge Instructions Follow Up With: Fartun Quinones, ASSOCIATE BROKER [Primary Care Provider] - - Diet and Activity Activity: resume usual activities as tolerated Diet: diabetic diet, low salt diet
[2018-10-25 11:27] VITALS: BP 112/65
--- NOTE | 2018-10-25 12:07 | Physician Discharge Referral ---
Home Health/Hosp Referral Info Transfer to: Home Health, Hospice - Diagnosis (1) Chronic diastolic (congestive) heart failure Priority: Primary Status: Acute (2) Acute and chronic respiratory failure Priority: Primary Status: Resolved (3) COPD (chronic obstructive pulmonary disease) Priority: Secondary Status: Chronic (4) Anxiety Priority: Secondary Status: Chronic (5) BECK treated with BiPAP Priority: Secondary Status: Chronic (6) Atrial fibrillation Priority: Secondary Status: Chronic (7) CAD (coronary artery disease) Priority: Secondary Status: Chronic (8) Diabetes mellitus Priority: Secondary Status: Chronic (9) Hypothyroidism Priority: Secondary Status: Chronic (10) Morbid obesity Priority: Secondary Status: Chronic - Respiratory Orders Oxygen / L per min (2 litters) Smoking Cessation: Smoking cessation has been advised. For more information, call the [employer] Tobacco Quit Line at 9-463-MRYA-NOW. - Diet/Nutrition Diet/Nutrition Orders: Regular - Activity Activity Orders: Ambulate - Services Needed Following services are medically necessary services: Nursing, Home Health Aide, Physical Therapy, Occupational Therapy, Med Social Work - Transfer Medications Home Medications: Docusate Sodium [Stool Softener] 100 mg PO BID 08/04/16 [History] Metformin HCl [Glucophage] 1,000 mg PO DAILY 08/04/16 [History] Nitroglycerin [Nitrostat] 0.4 mg SL Q5M PRN 08/04/16 [History] Omeprazole [PriLOSEC] 20 mg PO DAILY 08/04/16 [History] Pentoxifylline [TRENtal] 400 mg PO BID 08/04/16 [History] Budesonide/Formoterol 160/4.5 [Symbicort 160/4.5] 2 puff IH BIDR 08/28/17 [History] Cyclobenzaprine [Flexeril] 10 mg PO TID PRN 08/28/17 [History] hydrOXYzine HCl [Hydroxyzine HCl] 25 mg PO BID PRN 02/21/18 [History] Gabapentin [Neurontin] 600 mg PO BID 04/29/18 [History] Aspirin 81 mg PO DAILY 07/05/18 [History] Atorvastatin [Lipitor] 40 mg PO HS 07/05/18 [History] FLUoxetine HCl [Prozac] 20 mg PO QAM 07/05/18 [History] Ipratropium/Albuterol Neb [Duoneb] 3 ml IH Q4HR PRN #90 inhsol 08/21/18 [Rx] Levothyroxine Sodium 75 mcg PO DAILY 09/09/18 [History] Levothyroxine Sodium [Euthyrox] 200 mcg PO DAILY 09/09/18 [History] Potassium Chloride 20 meq PO DAILY 09/09/18 [History] Warfarin [Coumadin] 7.5 mg PO 1800 09/09/18 [History] Metoprolol Succinate [Toprol Xl] 50 mg PO DAILY 09/10/18 [History] LORazepam [Ativan] 0.5 - 1 mg PO Q4H PRN 10/20/18 [History] OxyCODONE/APAP 10/325 [Percocet 10/325 MG] 1 - 2 tab PO Q4H PRN 10/20/18 [History] Acetaminophen [Tylenol 650mg SUPP] 650 mg RC Q4H PRN 10/21/18 [History] Albuterol Sulfate [Albuterol Inhaler] 2 puff PO Q4H PRN 10/21/18 [History] Atropine Sulfate in 0.9% NaCl [Atropine 0.01%-Ns Eye Drops] 2 drop PO Q2H PRN 10/21/18 [History] Bumetanide 2 mg PO BID 10/21/18 [History] Tiotropium [Spiriva] 18 mcg IH DAILY 10/21/18 [History] Torsemide [Demadex] 20 mg PO BID 10/21/18 [History] Umeclidinium [place] [Incruse Ellipta] 1 puff PO DAILY 10/21/18 [History] predniSONE [PredniSONE] 10 mg PO DAILY 10/21/18 [History] Allergies/Adverse Reactions: Allergy/AdvReac Type Severity Reaction Status Date / Time Amoxicillin [From Augmentin] Allergy See Verified 10/20/18 21:29 Comments clavulanic acid Allergy See Verified 10/20/18 21:29 [From Augmentin] Comments meperidine [From Demerol] Allergy See Verified 10/20/18 21:29 Comments sulfamethoxazole Allergy Rash Verified 10/20/18 21:29 [From Bactrim] trimethoprim [From Bactrim] Allergy Rash Verified 10/20/18 21:29 baclofen AdvReac See Verified 10/20/18 21:29 Comments Certification: Further, I certify that my clinical findings support that this patient is homebound (i.e. absences from home require considerable and taxing effort and are for medical reasons or hindu services or infrequently or short duration when for other reasons) because: Homebound Reason: Patient requires assistance of a person or device to safely leave home Attestation: My signature below is to certify that this patient is under my care and that I, or nurse practitioner, or a physician's senior court office assistant working with me, has a [id number] encounter with this patient.
[2018-10-25] MEDS ORDERED: *HR* Warfarin 7.5 MG TABLET PO ONE (18:00)
--- NOTE | 2018-10-26 15:42 | Electrocardiograph Report ---
[address] [place], [place] [address] Test Date: 2018-10-20 Pat Name: Clemente Davila Department: 104 Room: 2A23 Gender: Jordan Worker: [employer] : 1955 Requested By: Tony Norris Order Number: [id number] Reading MD: Skyler Rodriguez Measurements Intervals Victor Rate: 99 P: CA: 0 QRS: -21 QRSD: 106 T: 45 QT: 330 QTc: 386 Interpretive Statements Normal sinus rhythm septal infarct Electronically Signed On 10-26-2018 15:40:42 EDT by Skyler Rodriguez
[2018-10-27] MEDS ORDERED: predniSONE 10 MG TABLET PO SCH (09:00)
== END 2018-10-25 12:09 | disposition home health service (06) | DRG 291 ==
LOC: 2ANU 18:01 → EMEROOARM 18:01 → SUATTDRO 22:46 → 2ANU 23:20
PROVIDERS: ADMIT Family Medicine; ATTEND Internal Medicine

== ENCOUNTER 2018-11-17 01:28 | Inpatient (IN) ==
[2018-11-17] MEDS ORDERED: Furosemide 40 MG/4 ML VIAL IVP ONE (02:11)
[2018-11-17 02:54] LABS: Basophils % 0.3 %; Hematocrit 39.9 % (37.5-50.1); Hemoglobin 12.2 g/dL (12.9-16.9); Immature Granulocytes % 0.9 % (0-4); Lymphocytes # 1.1 K/mcL (0.6-4.6); Lymphocytes % 13.7 %; Mean Corpuscular HGB Conc 30.6 g/dL (31.6-35.5); Mean Corpuscular Hemoglobin 28.6 pg (28.0-33.3); Mean Corpuscular Volume 93.4 fL (83.0-100.0); Mean Platelet Volume 10.3 fL (9.4-12.4); Monocytes # 0.1 K/mcL (0.0-1.3); Monocytes % 1.4 %; Neutrophils # 6.4 K/mcL (1.6-8.9); Platelet Count 180 K/mcL (140-400); Red Blood Count 4.27 M/mcL (4.19-5.50); Red Cell Distribution Width 15.1 % (11.5-14.5); Segmented Neutrophils % 83.7 %; White Blood Count 7.7 K/mcL (4.3-11.1)
[2018-11-17] MEDS ORDERED: *HR* LORazepam 2 MG/ML VIAL IVP ONE (02:54)
[2018-11-17] MEDS ORDERED: Atropine Sulfate 1% 40 DROP/2 ML BOTTLE SL PRN (02:56)
[2018-11-17] MEDS ORDERED: Nitroglycerin 0.4 MG TAB.SUBL SL PRN (02:56)
[2018-11-17 03:01] LABS: INR 1.5; Prothrombin Time 16.8 Seconds (9.4-12.1)
[2018-11-17 03:01] LABS: VBG HCO3 26 mEq/L (21-27); VBG PCO2 46 mmHg (41-51); VBG PH 7.36 pH Units (7.32-7.42); VBG PO2 89 mmHg (25-50)
[2018-11-17] MEDS ORDERED: *HR* Dextrose 50 % in Water (Syg) 50 ML SYRINGE IVP PRN (03:09)
[2018-11-17] MEDS ORDERED: Dextrose Gel 15 GM/37.5 ML TUBE PO PRN ×2 (03:09)
[2018-11-17 03:13] LABS: BUN/Creatinine Ratio 18 (6-26); Blood Urea Nitrogen 19 mg/dL (8-23); Calcium 8.7 mg/dL (8.6-10.3); Carbon Dioxide 24 mEq/L (23-29); Chloride 104 mEq/L (98-107); Glucose 232 mg/dL (70-105); Osmolality,Calculated 294 (280-300); Potassium 4.2 mEq/L (3.5-5.1); Sodium 137 mEq/L (136-145); eGFR For African Americans > 60 (> 60); eGFR For Non-African Americans > 60 (> 60)
--- NOTE | 2018-11-17 03:15 | Internal Med History&Physical ---
Date of Encounter: 11/17/18 Time of Encounter: 03:13 Internal Medicine - H&P: HPI Chief complaint: SOB Admitted From: Home Plans for Post Hospital Care: Home History of present illness: Clemente Davila is 63-year-old morbidly obese man with chronic hypoxic respiratory failure secondary to COPD/BECK overlap syndrome with pulmonary hypertension, atrial fibrillation on warfarin, diabetes, hypertension and coronary artery disease who is on home hospice who is frequently up admitted for acute respiratory failure. Presents on transfer from [facility] where he was taken to with a complaint of increasing shortness of breath over the last few days to have concerns of pulmonary edema in his state of hypoxia and was given a dose of furosemide and placed on supplemental oxygen. He requested tra nsfer here. On arrival he is in no acute distress but confirms his increasing difficulty with breathing although he continues to smoke cigarettes. He denies chest pain, fever, chills, productive cough but does acknowledge having anxiety issues which makes his shortness of breath worse. Vitals: Reviewed General: Elderly obese white man lying in bed in [facility]. Skin: Flushed face, warm and dry skin. HEENT: Moist mucous membranes. No conjunctivae pallor. Neck: No lymphadenopathy. No JVD. No carotid bruits. No palpable thyroid. Chest: Diminished thoracic expansion with reduced breath sounds bilaterally. Heart: Normal S1 & S2; rhythmic. No rubs or murmurs. Abdomen: Obese but soft and nontender to palpation. Extremities: 2+ pitting edema in both lower extremities. Neurological: Awake, alert and oriented to person, place and time. No focal deficits. Psych: Affect appropriate. Assessment/Plan 1. Acute on chronic hypoxic respiratory failure: Seemingly multifactorial in origin is contributed by both an obstructive and restrictive ventilatory impairment COPD/EBCK with pHTN and morbid obesity respectively. Chest x-ray performed on arrival here confirms the presence of diffuse pulmonary edema which is an additional factor. Will give another dose of parenteral diuretics now and continue with BID dosing until he stabilizes. Place on NIPPV tonight and supplemental via NC during the day. Will give nebulizer therapy and systemic steroids for any airway inflammation. No concerns for infection at this time prompting a need for antibiotics. 2. Atrial fibrillation: Rate controlled but INR is subtherapeutic. Warfarin to be dosed by pharmacy. 3. Coronary artery disease: Clinically asymptomatic at this time. Will continue ASA and BB. 4. Hypothyroidism: TSH has been well controlled based on our lab tests. On levothyroxine. 5. Diabetes: Well controlled. Hold oral agents and place on insulin sliding scale. 6. Goals of care discussion: The patient requests to remain DNR/CC but wants his current acute respiratory episode treated medically to the best of our ability without any other aggressive life-supporting measures. He lives alone and is under [facility] hospice services. Will need criminal justice social worker evaluation. Past Med Surg Social Fam HX - Past Medical History Medical history: asthma, atrial fibrillation, CHF, COPD, coronary artery disease, diabetes, hyperlipidemia, hypertension, myocardial infarction, peripheral artery disease, renal disease, thyroid disease, other Additional medical history: Grave's disease, CKD (unsure what stage). Psychiatric history: anxiety, depression - Past Surgical History Surgical History: angioplasty/stent, orthopedic, other Additional surgical history: one cardiac stent. left hand surgery. Bilateral eye surgery - Social History Smoking Status: Current every day smoker Smokeless Tobacco Status: No Alcohol use: occasionally Drug use: none - Family History Mother Family Member Ethnicity: Non- Living Status: Hx Family Cardiac Disorders: No Hx Family Respiratory Disorders: No Father Family Member Ethnicity: Non- Living Status: Hx Family Cardiac Disorders: No Hx Family Respiratory Disorders: No Hx Family Cancer: Yes (pancreatic) Brother Family Member Ethnicity: Non- Living Status: Still Living Hx Family Cardiac Disorders: Yes (Pacemaker) Hx Family Endocrine Disorder: Yes (DM) Sister Family Member Ethnicity: Non- Living Status: Still Living Hx Family Cardiac Disorders: No Hx Family Respiratory Disorders: No Hx Family Cancer: Yes (dad pancereas) Hx Family GI Disorders: No Hx Family Endocrine Disorder: No Hx Family Neuromuscular Disorders: No Hx Family Neurologic Disorders: No Hx Family HEENT Disorders: No Hx Family Autoimmune Disorders: No Internal Medicine - H&P: Meds Docusate Sodium [Stool Softener] 100 mg PO BID 08/04/16 [History] Metformin HCl [Glucophage] 1,000 mg PO DAILY 08/04/16 [History] Nitroglycerin [Nitrostat] 0.4 mg SL Q5M PRN 08/04/16 [History] Omeprazole [PriLOSEC] 20 mg PO DAILY 08/04/16 [History] Pentoxifylline [TRENtal] 400 mg PO BID 08/04/16 [History] Budesonide/Formoterol 160/4.5 [Symbicort 160/4.5] 2 puff IH BIDR 08/28/17 [History] Cyclobenzaprine [Flexeril] 10 mg PO TID PRN 08/28/17 [History] hydrOXYzine HCl [Hydroxyzine HCl] 25 mg PO BID PRN 02/21/18 [History] Gabapentin [Neurontin] 600 mg PO BID 04/29/18 [History] Aspirin 81 mg PO DAILY 07/05/18 [History] Atorvastatin [Lipitor] 40 mg PO HS 07/05/18 [History] FLUoxetine HCl [Prozac] 20 mg PO QAM 07/05/18 [History] Ipratropium/Albuterol Neb [Duoneb] 3 ml IH Q4HR PRN #90 inhsol 08/21/18 [Rx] Levothyroxine Sodium 75 mcg PO DAILY 09/09/18 [History] Levothyroxine Sodium [Euthyrox] 200 mcg PO DAILY 09/09/18 [History] Potassium Chloride 20 meq PO DAILY 09/09/18 [History] Warfarin [Coumadin] 7.5 mg PO 1800 09/09/18 [History] Metoprolol Succinate [Toprol Xl] 50 mg PO DAILY 09/10/18 [History] LORazepam [Ativan] 0.5 - 1 mg PO Q4H PRN 10/20/18 [History] OxyCODONE/APAP 10/325 [Percocet 10/325 MG] 1 - 2 tab PO Q4H PRN 10/20/18 [History] Acetaminophen [Tylenol 650mg SUPP] 650 mg RC Q4H PRN 10/21/18 [History] Albuterol Sulfate [Proventil Inhaler] 2 puff PO Q4H PRN 10/21/18 [History] Atropine Sulfate in 0.9% NaCl [Atropine 0.01%-Ns Eye Drops] 2 drop PO Q2H PRN 10/21/18 [History] Bumetanide 2 mg PO BID 10/21/18 [History] Tiotropium [Spiriva] 18 mcg IH DAILY 10/21/18 [History] Torsemide [Demadex] 20 mg PO BID 10/21/18 [History] Umeclidinium [place] [Incruse Ellipta] 1 puff PO DAILY 10/21/18 [History] predniSONE [PredniSONE] 10 mg PO DAILY 10/21/18 [History] Allergy/AdvReac Type Severity Reaction Status Date / Time Amoxicillin [From Augmentin] Allergy See Verified 10/20/18 21:29 Comments clavulanic acid Allergy See Verified 10/20/18 21:29 [From Augmentin] Comments meperidine [From Demerol] Allergy See Verified 10/20/18 21:29 Comments sulfamethoxazole Allergy Rash Verified 10/20/18 21:29 [From Bactrim] trimethoprim [From Bactrim] Allergy Rash Verified 10/20/18 21:29 baclofen AdvReac See Verified 10/20/18 21:29 Comments All Systems PM: A 10-system review of systems was performed and is negative for pertinent findings except as documented above in the HPI. - Constitutional Vitals: Temp Pulse Resp BP Pulse Ox 98.2 F 71 20 132/70 96 11/17/18 01:57 11/17/18 01:57 11/17/18 01:57 11/17/18 01:57 11/17/18 02:19 Exam: . Internal Med - H&P Results - Labs CBC & Chem 7: 11/17/18 02:40 Labs: Short CBC 11/17/18 Range/Units 02:40 WBC 7.7 (4.3-11.1) K/mcL Hgb 12.2 L (12.9-16.9) g/dL Hct 39.9 (37.5-50.1) % Plt Count 180 (140-400) K/mcL Neutrophils # 6.4 (1.6-8.9) K/mcL - ABG Interpretation ABG results: 11/17/18 02:57 VBG pH 7.36 VBG pCO2 46 VBG pO2 89 H VBG HCO3 26 - Time Spent With Patient Total time spent is greater than 50% in coordination of care (as documented) at patient's floor/unit and/or counseling patient: Greater than 35 minutes
[2018-11-17] MEDS: *HR* OxyCODONE/APAP 10/325 TABLET PO PRN ×3 (03:18→22:09)
[2018-11-17] MEDS: Ipratropium/Albuterol Neb 3 ML IH SCH ×3 (03:43→10:54)
[2018-11-17] MEDS ORDERED: D5% in Water 1,000 ML IVC PRN (07:30)
[2018-11-17] MEDS ORDERED: MethylPREDNISolone 40 MG/ML VIAL IVP SCH (08:00)
[2018-11-17] MEDS: Gabapentin 300 MG CAPSULE PO SCH ×2 (08:12→22:09)
[2018-11-17] MEDS: Metoprolol XL (24 HR) Succ 50 MG TAB.ER.24H PO SCH (08:13)
[2018-11-17] MEDS: Aspirin 81 MG TAB.CHEW PO SCH (08:13)
[2018-11-17] MEDS: FLUoxetine 20 MG CAPSULE PO SCH (08:13)
[2018-11-17] MEDS: Insulin LISPRO 300 UNITS/3 ML VIAL SQ SCH ×4 (08:13→22:04)
[2018-11-17] MEDS: Furosemide 40 MG/4 ML VIAL IVP SCH ×2 (08:13→17:08)
[2018-11-17] MEDS ORDERED: Furosemide 40 MG/4 ML VIAL IVP SCH (09:00)
--- NOTE | 2018-11-17 17:22 | Event Note ---
Date of Encounter: 11/17/18 Time of Encounter: 10:00 History of physical exam reviewed. Briefly, Mr. hernandez is a 63-year-old male with history of COPD/BECK on 3 L, remote smoking history, A. fib on Coumadin, type II DM, morbid obesity, HTN, CAD who was sent from his home hospice service due to dyspnea and leg swelling. Patient had multiple admissions for the same reason in the past. He was discharged on Bumex 2 mg twice a day last month however checking his pharmacy record revealed that he was on Lasix 40 mg twice a day which was increased recently to 80 mg by his family doctor. Chest x-ray at presentation revealed pulmonary edema consistent with congestive heart failure. His symptoms were managed as follows: Acute hypoxic respiratory failure: - Due to decompensated heart failure preserved ejection fraction. - Now on IV Lasix 40 mg twice a day with good urine output - We will decrease his steroids to once daily Solu-Medrol. Continue breathing treatment as needed. Atrial fibrillation: - In sinus rhythm. Continue Coumadin, check INR tomorrow. Continue beta alf for rate control. CAD: - Continue aspirin, statins and beta blockers. Type II DM: - On metformin at home. We will hold - We will start him on March 07 units along with low sliding scale insulin. Accu-Cheks 3 times daily before meals Anxiety: - Continue home medication. Hypothyroidism: - Continue home medication.
[2018-11-17] MEDS ORDERED: *HR* Warfarin 7.5 MG TABLET PO ONE (18:00)
[2018-11-17] MEDS ORDERED: Warfarin perPT PO PRN (18:00)
[2018-11-17] MEDS: hydrOXYzine pamoate 25 MG CAPSULE PO PRN (22:09)
[2018-11-17] MEDS: Insulin DETEMIR 100 UNIT/ML X5UNITS SQ SCH (22:09)
[2018-11-17] MEDS: *HR* LORazepam 0.5 MG TABLET PO PRN (23:49)
[2018-11-18 06:34] LABS: INR 1.5; Prothrombin Time 17.3 Seconds (9.4-12.1)
[2018-11-18 07:35] LABS: BUN/Creatinine Ratio 26 (6-26); Blood Urea Nitrogen 27 mg/dL (8-23); Calcium 8.8 mg/dL (8.6-10.3); Carbon Dioxide 31 mEq/L (23-29); Chloride 105 mEq/L (98-107); Glucose 145 mg/dL (70-105); Osmolality,Calculated 286 (280-300); Potassium 3.9 mEq/L (3.5-5.1); Sodium 134 mEq/L (136-145); eGFR For African Americans > 60 (> 60); eGFR For Non-African Americans > 60 (> 60)
[2018-11-18] MEDS ORDERED: MethylPREDNISolone 40 MG/ML VIAL IVP SCH (08:00)
[2018-11-18] MEDS: Gabapentin 300 MG CAPSULE PO SCH ×2 (09:15→20:51)
[2018-11-18] MEDS: FLUoxetine 20 MG CAPSULE PO SCH (09:15)
[2018-11-18] MEDS: Aspirin 81 MG TAB.CHEW PO SCH (09:16)
[2018-11-18] MEDS: Furosemide 40 MG/4 ML VIAL IVP SCH ×2 (09:16→17:09)
[2018-11-18] MEDS: Metoprolol XL (24 HR) Succ 50 MG TAB.ER.24H PO SCH (09:16)
[2018-11-18] MEDS: Insulin LISPRO 300 UNITS/3 ML VIAL SQ SCH ×4 (09:16→20:28)
[2018-11-18] MEDS: *HR* OxyCODONE/APAP 10/325 TABLET PO PRN (09:25)
--- NOTE | 2018-11-18 13:03 | Internal Med Progress Note ---
Hospitalist Progress Note - Encounter Date of Encounter: 11/18/18 Time of Encounter: 10:00 - Subjective Interval History: No major events overnight. Patient was seen this a.m. He denied fever, chills or night sweats. He has no nausea, vomiting or abdominal pain. Patient denied chest pain, however he endorsed shortness of breath with exertion. He still feels that his legs are tight - Exam Vitals: Temp Pulse Resp BP Pulse Ox 98.0 F 73 17 106/67 97 11/18/18 11:00 11/18/18 11:00 11/18/18 11:11/18/18 11:00 11/18/18 11:00 Exam: .General: Patient is alert, oriented 3. Head: Atraumatic, normal inspection, normocephalic. Eye: EOMI, PERRLA, no scleral icterus noted. ENT: Mucous membranes moist. No odontogenic infection noted. Neck: hard to assess JVd, Normal inspection, Respiratory: No respiratory distress, rhonchi, or wheezes noted. Cardiovascular: Regular rate and regular rhythm, S1 and S2 audible. No murmurs, rubs, or gallops. Bilateral lower extremity skin changes consistent with staSIS Dermatosis GI: Soft, nondistended, normal bowel sounds. Extremities:No joint swelling, mild tenderness noted. Neurological: Alert, oriented 3, no focal deficits. Psychiatric: normal affect, normal mood. Skin: Dry, intact, warm. Normal color. No rashes. - Assessment and Plan (1) Acute and chronic respiratory failure Current Visit: Yes Status: Resolved (2) Acute on chronic diastolic (congestive) heart failure Current Visit: Yes Status: Acute (3) DVT prophylaxis Current Visit: No Status: Acute (4) Atrial fibrillation Current Visit: No Status: Chronic (5) CAD (coronary artery disease) Current Visit: Yes Status: Chronic (6) COPD (chronic obstructive pulmonary disease) Current Visit: No Status: Chronic (7) Venous stasis dermatitis of both lower extremities Current Visit: Yes Status: Chronic - Summary of Assessment and Plan Summary of Assessment and Plan: Mr. hernandez is a 63-year-old male with history of COPD/BECK on 3 L, remote smoking history, A. fib on Coumadin, type II DM, morbid obesity, HTN, CAD who was sent from his home hospice service due to dyspnea and leg swelling. Patient had multiple admissions for the same reason in the past. He was discharged on Bumex 2 mg twice a day last month however checking his pharmacy record revealed that he was on Lasix 40 mg twice a day which was increased recently to 80 mg by his family doctor. Chest x-ray at presentation revealed pulmonary edema consistent with congestive heart failure. His symptoms were managed as follows: Acute hypoxic respiratory failure: - Due to decompensated heart failure preserved ejection fraction, I don't think he is in COPD exacerbation. Steroids Dc - Now on IV Lasix 40 mg tBID with good urine output, I/O is inaccurate. Atrial fibrillation: - In sinus rhythm. Continue Coumadin, INR subtheraputic, check INR tomorrow. Continue beta alf for rate control. CAD: - Continue aspirin, statins and beta blockers. Type II DM: - On metformin at home. We will hold - We will start him on levemir 10 units along with low sliding scale insulin. Accu-Cheks 3 times daily before meals Anxiety: - Continue home medication. Hypothyroidism: - Continue home medication. DVTppx: On Coumadin. - Time Spent with Patient Total time spent is greater than 50% in coordination of care (as documented) at patient's floor/unit and/or counseling patient: Plan of Care Discussed with: patient Internal Medicine: Result - Labs CBC & Chem 7: 11/17/18 02:40 11/18/18 05:44 Labs: BMP 11/18/18 05:44 Sodium 134 L Potassium 3.9 Chloride 105 Carbon Dioxide 31 H BUN 27 H Creatinine 1.05 Glucose 145 H Calcium 8.8 - ABG Interpretation ABG results: PT/INR, D-dimer PT 17.3 Seconds (9.4-12.1) H 11/18/18 05:44 Consult Discharge Plan - Plan Referrals: Fartun Quinones, SOW FARM BARN TECHNICIAN [Primary Care Provider] - (1) Acute and chronic respiratory failure Qualifiers: Respiratory failure complication: hypoxia Qualified Code(s): J96.21 - Acute and chronic respiratory failure with hypoxia (4) Atrial fibrillation Qualifiers: Atrial fibrillation type: paroxysmal Qualified Code(s): I48.0 - Paroxysmal atrial fibrillation (5) CAD (coronary artery disease) Qualifiers: Coronary Disease-Associated Artery/Lesion type: [place] artery [place] vs. transplanted heart: [place] heart Associated angina: without angina Qualified Code(s): I25.10 - Atherosclerotic heart disease of [place] coronary artery without angina pectoris (6) COPD (chronic obstructive pulmonary disease) Qualifiers: COPD type: unspecified COPD Qualified Code(s): J44.9 - Chronic obstructive pulmonary disease, unspecified
[2018-11-18] MEDS ORDERED: *HR* Warfarin 7.5 MG TABLET PO ONE (18:00)
[2018-11-18] MEDS: Insulin DETEMIR 100 UNIT/ML X5UNITS SQ SCH (20:51)
[2018-11-19 05:31] LABS: INR 1.5; Prothrombin Time 16.5 Seconds (9.4-12.1)
[2018-11-19 05:44] LABS: BUN/Creatinine Ratio 35 (6-26); Blood Urea Nitrogen 32 mg/dL (8-23); Calcium 8.7 mg/dL (8.6-10.3); Carbon Dioxide 30 mEq/L (23-29); Chloride 103 mEq/L (98-107); Glucose 111 mg/dL (70-105); Osmolality,Calculated 298 (280-300); Potassium 3.7 mEq/L (3.5-5.1); Sodium 140 mEq/L (136-145); eGFR For African Americans > 60 (> 60); eGFR For Non-African Americans > 60 (> 60)
[2018-11-19] MEDS: Aspirin 81 MG TAB.CHEW PO SCH (08:42)
[2018-11-19] MEDS: *HR* OxyCODONE/APAP 10/325 TABLET PO PRN ×2 (08:42→17:40)
[2018-11-19] MEDS: Metoprolol XL (24 HR) Succ 50 MG TAB.ER.24H PO SCH (08:42)
[2018-11-19] MEDS: Furosemide 40 MG/4 ML VIAL IVP SCH ×2 (08:43→17:34)
[2018-11-19] MEDS: Insulin LISPRO 300 UNITS/3 ML VIAL SQ SCH ×4 (08:43→20:34)
[2018-11-19] MEDS: Gabapentin 300 MG CAPSULE PO SCH ×2 (08:43→20:33)
[2018-11-19] MEDS: FLUoxetine 20 MG CAPSULE PO SCH (08:43)
--- NOTE | 2018-11-19 14:51 | Internal Med Progress Note ---
Hospitalist Progress Note - Encounter Date of Encounter: 11/19/18 Time of Encounter: 14:46 - Subjective Interval History: I have seen and evaluated the patient at bedside. Patient reports improvement with his breathing but still reports getting short of breath with minimal exertion. denies chest pain, nausea, vomiting or abdominal pain. - Exam Vitals: Temp Pulse Resp BP Pulse Ox 98.1 F 78 16 126/82 93 11/19/18 10:58 11/19/18 10:58 11/19/18 10:58 11/19/18 10:58 11/19/18 10:58 Exam: Vitals: Reviewed General: Alert and oriented x4. In mild distress due to shortness of breath Cardiovascular: Irregularly irregular, normal S1 & S2, no rubs, murmurs or gallops. Lungs: Decreased breath sounds bilaterally, no wheezes or crackles. Abdomen: Obese, Soft, non-tender, no rigidity. Extremities: Chronic venous stasis changes in the lower extremity bilaterally. Neurological: Normal cognition and motor skills. Rest of the physical exam is non contributory - Assessment and Plan (1) Acute on chronic diastolic (congestive) heart failure Current Visit: Yes Status: Acute Assessment and Plan: Patient reports improvement in his shortness of breath. Total fluid balance -6.0 L Plan Continue fluid restrictive strategies to 1.5 L a day, and furosemide 40 mg IV twice a day. (2) COPD (chronic obstructive pulmonary disease) Current Visit: No Status: Chronic Assessment and Plan: Patient not on acute exacerbation. On bronchodilators. Resume prednisone 10 mg by mouth daily. Home medication. Incentive spirometry. (3) CAD (coronary artery disease) Current Visit: Yes Status: Chronic Assessment and Plan: On aspirin 81 mg daily. (4) Venous stasis dermatitis of both lower extremities Current Visit: Yes Status: Chronic (5) Atrial fibrillation Current Visit: No Status: Chronic Assessment and Plan: Rate controlled on metoprolol. On warfarin for secondary stroke prevention. (6) Acute and chronic respiratory failure Current Visit: Yes Status: Resolved (7) Diabetes mellitus Current Visit: No Status: Chronic Assessment and Plan: Blood sugar is well controlled short and no acting insulin coverage. (8) Hypothyroidism Current Visit: No Status: Chronic Assessment and Plan: Continue home medication. DVT Prophylaxis: Intermittent pneumatic compression. - Summary of Assessment and Plan Summary of Assessment and Plan: Patient to remain in the hospital due to CHF exacerbation. On IV diuresis. - Time Spent with Patient Total time spent is greater than 50% in coordination of care (as documented) at patient's floor/unit and/or counseling patient: Greater than 35 minutes (40) Plan of Care Discussed with: patient (and the nurse) Internal Medicine: Result - Labs CBC & Chem 7: 11/17/18 02:40 11/19/18 04:46 Labs: BMP 11/19/18 04:46 Sodium 140 Potassium 3.7 Chloride 103 Carbon Dioxide 30 H BUN 32 H Creatinine 0.91 Glucose 111 H Calcium 8.7 - ABG Interpretation ABG results: PT/INR, D-dimer PT 16.5 Seconds (9.4-12.1) H 11/19/18 04:46 Consult Discharge Plan - Plan Referrals: Fartun Quinones, DIGITAL MEDIA PLANNER [Primary Care Provider] - (2) COPD (chronic obstructive pulmonary disease) Qualifiers: COPD type: unspecified COPD Qualified Code(s): J44.9 - Chronic obstructive pulmonary disease, unspecified (3) CAD (coronary artery disease) Qualifiers: Coronary Disease-Associated Artery/Lesion type: [place] artery [place] vs. 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
[2018-11-19] MEDS ORDERED: *HR* Warfarin 7.5 MG TABLET PO ONE (18:00)
[2018-11-19] MEDS: Insulin DETEMIR 100 UNIT/ML X5UNITS SQ SCH (20:33)
[2018-11-19] MEDS: hydrOXYzine pamoate 25 MG CAPSULE PO PRN (22:21)
[2018-11-20 05:55] LABS: INR 1.8; Prothrombin Time 19.9 Seconds (9.4-12.1)
[2018-11-20] MEDS: Insulin LISPRO 300 UNITS/3 ML VIAL SQ SCH ×4 (07:18→22:03)
[2018-11-20] MEDS: Furosemide 40 MG/4 ML VIAL IVP SCH ×2 (08:26→17:38)
[2018-11-20] MEDS: predniSONE 10 MG TABLET PO SCH (08:26)
[2018-11-20] MEDS: Aspirin 81 MG TAB.CHEW PO SCH (08:26)
[2018-11-20] MEDS: Metoprolol XL (24 HR) Succ 50 MG TAB.ER.24H PO SCH (08:26)
[2018-11-20] MEDS: FLUoxetine 20 MG CAPSULE PO SCH (08:27)
[2018-11-20] MEDS: Gabapentin 300 MG CAPSULE PO SCH ×2 (08:27→20:35)
--- NOTE | 2018-11-20 13:21 | Internal Med Progress Note ---
Hospitalist Progress Note - Encounter Date of Encounter: 11/20/18 Time of Encounter: 13:19 - Subjective Interval History: I have seen and evaluated the patient at bedside. patient reports his breathing is almost back to his baseline. reports generalized body aches. denies nausea, vomiting or abdominal pain. - Exam Vitals: Temp Pulse Resp BP Pulse Ox 97.7 F 70 18 110/63 96 11/20/18 11:44 11/20/18 11:44 11/20/18 11:44 11/20/18 11:44 11/20/18 11:44 Exam: Vitals: Reviewed General: Alert and oriented x4. In no distress Cardiovascular: Irregularly irregular, normal S1 & S2, no rubs, murmurs or gallops. Lungs: Decreased breath sounds bilaterally, no wheezes or crackles. Abdomen: Obese, Soft, non-tender, no rigidity. NABS in all 4 quadrants Extremities: Chronic venous stasis changes in the lower extremity bilaterally. Neurological: No focal neurological abnormalities Rest of the physical exam is non contributory - Assessment and Plan (1) Acute on chronic diastolic (congestive) heart failure Current Visit: Yes Status: Resolved Assessment and Plan: Patient reports improvement in his shortness of breath. Total fluid balance - 8.6 L Plan - fluid restrictive strategies to 1.5 L a day - Furosemide 40 mg IV twice a day. (2) COPD (chronic obstructive pulmonary disease) Current Visit: No Status: Chronic Assessment and Plan: Patient not on acute exacerbation. On bronchodilators. continue prednisone 10 mg by mouth daily. Incentive spirometry. symbicort (3) CAD (coronary artery disease) Current Visit: Yes Status: Chronic Assessment and Plan: On aspirin 81 mg daily. (4) Venous stasis dermatitis of both lower extremities Current Visit: Yes Status: Chronic (5) Atrial fibrillation Current Visit: No Status: Chronic Assessment and Plan: Rate controlled on metoprolol 50 mg by mouth daily. On warfarin for secondary stroke prevention. (6) Acute and chronic respiratory failure Current Visit: Yes Status: Resolved Assessment and Plan: Continue oxygen by nasal cannula, titrate for O2 sat duration more than 88%. (7) Diabetes mellitus Current Visit: No Status: Chronic Assessment and Plan: Blood sugar is well controlled short and long acting insulin coverage. (8) Hypothyroidism Current Visit: No Status: Chronic Assessment and Plan: Continue home medication. on levothyroxine 75mcg/PO daily and 200mcg/po DVT Prophylaxis: Intermittent pneumatic compression - Summary of Assessment and Plan Summary of Assessment and Plan: patient to remain in the hospital for IV diuretics for 24 more hours. - Time Spent with Patient Total time spent is greater than 50% in coordination of care (as documented) at patient's floor/unit and/or counseling patient: Greater than 35 minutes (40) Plan of Care Discussed with: patient (and the nurse.) Internal Medicine: Result - Labs CBC & Chem 7: 11/17/18 02:40 11/19/18 04:46 - ABG Interpretation ABG results: PT/INR, D-dimer PT 19.9 Seconds (9.4-12.1) H 11/20/18 04:52 Consult Discharge Plan - Plan Referrals: Fartun Quinones, CAR REPAIRER APPRENTICE [Primary Care Provider] - (2) COPD (chronic obstructive pulmonary disease) Qualifiers: COPD type: unspecified COPD Qualified Code(s): J44.9 - Chronic obstructive pulmonary disease, unspecified (3) CAD (coronary artery disease) Qualifiers: Coronary Disease-Associated Artery/Lesion type: [place] artery [place] vs. transplanted heart: [place] heart Associated angina: without angina Qualified Code(s): I25.10 - Atherosclerotic heart disease of [place] coronary artery without angina pectoris (5) Atrial fibrillation Qualifiers: Atrial fibrillation type: paroxysmal Qualified Code(s): I48.0 - Paroxysmal atrial fibrillation (6) Acute and chronic respiratory failure Qualifiers: Respiratory failure complication: hypoxia Qualified Code(s): J96.21 - Acute and chronic respiratory failure with hypoxia (7) Diabetes mellitus Qualifiers: Diabetes mellitus type: type 2 Diabetes mellitus halfway insulin use: with terminal carman use Diabetes mellitus complication status: without complication Qualified Code(s): E11.9 - Type 2 diabetes mellitus without complications; Z79.4 - senior care (current) use of insulin (8) Hypothyroidism Qualifiers: Hypothyroidism type: postablative Qualified Code(s): E89.0 - Postprocedural hypothyroidism
[2018-11-20] MEDS: Levalbuterol Neb 0.63 MG/3 ML IH SCH ×2 (15:04→22:01)
[2018-11-20] MEDS ORDERED: *HR* Warfarin 7.5 MG TABLET PO ONE (18:00)
[2018-11-20] MEDS: Insulin DETEMIR 100 UNIT/ML X5UNITS SQ SCH (20:36)
[2018-11-20] MEDS: Nystatin POWDER 30 GM BOTTLE TP SCH (20:36)
[2018-11-20] MEDS: *HR* LORazepam 0.5 MG TABLET PO PRN (20:47)
[2018-11-20] MEDS: hydrOXYzine pamoate 25 MG CAPSULE PO PRN (20:47)
[2018-11-20] MEDS: Budesonide/Formoterol 160/4.5 1 PUFF INH IH SCH (22:02)
[2018-11-20] MEDS: *HR* OxyCODONE/APAP 10/325 TABLET PO PRN (22:09)
[2018-11-21] MEDS: Levalbuterol Neb 0.63 MG/3 ML IH SCH ×2 (03:27→10:40)
[2018-11-21 07:24] LABS: Basophils % 0.3 %; Eosinophils # 0.1 K/mcL (0.0-0.6); Hematocrit 38.2 % (37.5-50.1); Hemoglobin 11.6 g/dL (12.9-16.9); Immature Granulocytes % 0.3 % (0-4); Lymphocytes % 34.1 %; Mean Corpuscular HGB Conc 30.4 g/dL (31.6-35.5); Mean Corpuscular Hemoglobin 28.6 pg (28.0-33.3); Mean Corpuscular Volume 94.3 fL (83.0-100.0); Mean Platelet Volume 10.2 fL (9.4-12.4); Monocytes # 0.9 K/mcL (0.0-1.3); Monocytes % 9.7 %; Neutrophils # 4.8 K/mcL (1.6-8.9); Platelet Count 146 K/mcL (140-400); Red Blood Count 4.05 M/mcL (4.19-5.50); Red Cell Distribution Width 14.5 % (11.5-14.5); Segmented Neutrophils % 54.6 %; White Blood Count 8.8 K/mcL (4.3-11.1)
[2018-11-21 07:31] LABS: INR 1.6; Prothrombin Time 18.7 Seconds (9.4-12.1)
[2018-11-21 07:40] VITALS: BP 114/68
[2018-11-21 07:44] LABS: BUN/Creatinine Ratio 32 (6-26); Blood Urea Nitrogen 27 mg/dL (8-23); Calcium 8.8 mg/dL (8.6-10.3); Carbon Dioxide 30 mEq/L (23-29); Chloride 101 mEq/L (98-107); Glucose 115 mg/dL (70-105); Magnesium 1.8 mg/dL (1.6-2.6); Osmolality,Calculated 290 (280-300); Phosphorous 3.1 mg/dL (2.7-4.5); Potassium 3.4 mEq/L (3.5-5.1); Sodium 137 mEq/L (136-145); eGFR For African Americans > 60 (> 60); eGFR For Non-African Americans > 60 (> 60)
[2018-11-21] MEDS: predniSONE 10 MG TABLET PO SCH (07:57)
[2018-11-21] MEDS: Gabapentin 300 MG CAPSULE PO SCH (07:57)
[2018-11-21] MEDS: Metoprolol XL (24 HR) Succ 50 MG TAB.ER.24H PO SCH (07:57)
[2018-11-21] MEDS: FLUoxetine 20 MG CAPSULE PO SCH (07:57)
[2018-11-21] MEDS: Aspirin 81 MG TAB.CHEW PO SCH (07:57)
[2018-11-21] MEDS: Furosemide 40 MG/4 ML VIAL IVP SCH (07:58)
[2018-11-21] MEDS: Insulin LISPRO 300 UNITS/3 ML VIAL SQ SCH (07:58)
--- NOTE | 2018-11-21 08:54 | Discharge Summary ---
Date of Encounter: 11/21/18 Time of Encounter: 08:48 - Discharge Diagnosis (1) Acute on chronic diastolic (congestive) heart failure Priority: Primary Status: Resolved (2) COPD (chronic obstructive pulmonary disease) Priority: Secondary Status: Chronic Qualifiers: COPD type: unspecified COPD Qualified Code(s): J44.9 - Chronic obstructive pulmonary disease, unspecified (3) CAD (coronary artery disease) Priority: Secondary Status: Chronic Qualifiers: Coronary Disease-Associated Artery/Lesion type: [place] artery [place] vs. transplanted heart: [place] heart Associated angina: without angina Qualified Code(s): I25.10 - Atherosclerotic heart disease of [place] coronary artery without angina pectoris (4) Venous stasis dermatitis of both lower extremities Priority: Secondary Status: Chronic (5) Atrial fibrillation Priority: Secondary Status: Chronic Qualifiers: Atrial fibrillation type: paroxysmal Qualified Code(s): I48.0 - Paroxysmal atrial fibrillation (6) Acute and chronic respiratory failure Priority: Primary Status: Resolved Qualifiers: Respiratory failure complication: hypoxia Qualified Code(s): J96.21 - Acute and chronic respiratory failure with hypoxia (7) Diabetes mellitus Priority: Secondary Status: Chronic Qualifiers: Diabetes mellitus type: type 2 Diabetes mellitus waterm[place] insulin use: with intermediate use Diabetes mellitus complication status: without complication Qualified Code(s): E11.9 - Type 2 diabetes mellitus without complications; Z79.4 - senior living (current) use of insulin (8) Hypothyroidism Priority: Secondary Status: Chronic Qualifiers: Hypothyroidism type: postablative Qualified Code(s): E89.0 - Postprocedural hypothyroidism Hospital course: Mr. Davila is a 63 year old male morbidly obese man with chronic hypoxic respiratory failure secondary to COPD/BCEK overlap syndrome with pulmonary hypertension, atrial fibrillation on warfarin, diabetes, hypertension and coronary artery disease who is on home hospice who is frequently up admitted for acute respiratory failure. Presents on transfer from [facility] where he was taken to with a complaint of increasing shortness of breath over. Patient was admitted to the hospital due to acute on chronic hypoxix respiratory failure due to CHF exacerbation. Patient was managed with IV diuretics. 10 L of fluid removed, with resolution of his symptoms. Patient is hemodynamically stable to be discharged home. Recommended to follow-up with his primary care physician within a week of hospital discharge. - Time Spent with Patient Total time spent providing and/or coordinating discharge services: Time spent: Greater than 30 minutes (35) - Discharge Medications Prescriptions: New metOLazone [Zaroxolyn] 5 mg PO DAILY 30 Days #30 tablet Continued Omeprazole [PriLOSEC] 20 mg PO DAILY Docusate Sodium [Stool Softener] 100 mg PO BID Pentoxifylline [TRENtal] 400 mg PO BID Nitroglycerin [Nitrostat] 0.4 mg SL Q5M PRN PRN Reason: Chest Pain Metformin HCl [Glucophage] 1,000 mg PO BID Cyclobenzaprine [Flexeril] 10 mg PO QAM PRN PRN Reason: Muscle Spasm Budesonide/Formoterol 160/4.5 [Symbicort 160/4.5] 2 puff IH BIDR hydrOXYzine HCl [Hydroxyzine HCl] 25 mg PO BID PRN PRN Reason: Anxiety Gabapentin [Neurontin] 600 mg PO BID Atorvastatin [Lipitor] 40 mg PO HS FLUoxetine HCl [Prozac] 20 mg PO QAM Aspirin 81 mg PO DAILY Warfarin [Coumadin] 7.5 mg PO 1800 Levothyroxine Sodium 75 mcg PO DAILY Levothyroxine Sodium [Euthyrox] 200 mcg PO DAILY Potassium Chloride 20 meq PO BID Metoprolol Succinate [Toprol Xl] 50 mg PO BID OxyCODONE/APAP 10/325 [Percocet 10/325 MG] 1 - 2 tab PO Q4H PRN PRN Reason: Pain LORazepam [Ativan] 0.5 mg PO DAILY Albuterol Sulfate [Proventil Inhaler] 2 puff PO Q6H PRN PRN Reason: Shortness Of Breath Atropine Sulfate in 0.9% NaCl [Atropine 0.01%-Ns Eye Drops] 2 drop PO Q2H PRN PRN Reason: Secretions predniSONE [PredniSONE] 10 mg PO DAILY Tiotropium [Spiriva] 18 mcg IH DAILY Albuterol Neb [Proventil Neb] 2.5 ng PO Q6H PRN PRN Reason: Shortness Of Breath Cyclobenzaprine HCl 10 mg PO HS PRN PRN Reason: Muscle Spasm Ipratropium/Albuterol Neb [Duoneb] 3 ml IH Q6HR PRN PRN Reason: SOB/WHEEZE traZODone [TraZODone] 50 mg PO HS Changed Furosemide [Lasix] 40 mg PO BID 30 Days #60 tablet Discontinued Bumetanide 2 mg PO BID Torsemide [Demadex] 20 mg PO BID Home Medications: Docusate Sodium [Stool Softener] 100 mg PO BID 08/04/16 [History] Metformin HCl [Glucophage] 1,000 mg PO BID 08/04/16 [History] Nitroglycerin [Nitrostat] 0.4 mg SL Q5M PRN 08/04/16 [History] Omeprazole [PriLOSEC] 20 mg PO DAILY 08/04/16 [History] Pentoxifylline [TRENtal] 400 mg PO BID 08/04/16 [History] Budesonide/Formoterol 160/4.5 [Symbicort 160/4.5] 2 puff IH BIDR 08/28/17 [History] Cyclobenzaprine [Flexeril] 10 mg PO QAM PRN 08/28/17 [History] hydrOXYzine HCl [Hydroxyzine HCl] 25 mg PO BID PRN 02/21/18 [History] Gabapentin [Neurontin] 600 mg PO BID 04/29/18 [History] Aspirin 81 mg PO DAILY 07/05/18 [History] Atorvastatin [Lipitor] 40 mg PO HS 07/05/18 [History] FLUoxetine HCl [Prozac] 20 mg PO QAM 07/05/18 [History] Levothyroxine Sodium 75 mcg PO DAILY 09/09/18 [History] Levothyroxine Sodium [Euthyrox] 200 mcg PO DAILY 09/09/18 [History] Potassium Chloride 20 meq PO BID 09/09/18 [History] Warfarin [Coumadin] 7.5 mg PO 1800 09/09/18 [History] Metoprolol Succinate [Toprol Xl] 50 mg PO BID 09/10/18 [History] LORazepam [Ativan] 0.5 mg PO DAILY 10/20/18 [History] OxyCODONE/APAP 10/325 [Percocet 10/325 MG] 1 - 2 tab PO Q4H PRN 10/20/18 [History] Albuterol Sulfate [Proventil Inhaler] 2 puff PO Q6H PRN 10/21/18 [History] Atropine Sulfate in 0.9% NaCl [Atropine 0.01%-Ns Eye Drops] 2 drop PO Q2H PRN 10/21/18 [History] Tiotropium [Spiriva] 18 mcg IH DAILY 10/21/18 [History] predniSONE [PredniSONE] 10 mg PO DAILY 10/21/18 [History] Albuterol Neb [Proventil Neb] 2.5 ng PO Q6H PRN 11/18/18 [History] Cyclobenzaprine HCl 10 mg PO HS PRN 11/18/18 [History] Ipratropium/Albuterol Neb [Duoneb] 3 ml IH Q6HR PRN 11/18/18 [History] traZODone [TraZODone] 50 mg PO HS 11/18/18 [History] Furosemide [Lasix] 40 mg PO BID 30 Days #60 tablet 11/21/18 [Rx] metOLazone [Zaroxolyn] 5 mg PO DAILY 30 Days #30 tablet 11/21/18 [Rx] Allergies/Adverse Reactions: Allergy/AdvReac Type Severity Reaction Status Date / Time Amoxicillin [From Augmentin] Allergy See Verified 11/18/18 14:25 Comments clavulanic acid Allergy See Verified 11/18/18 14:25 [From Augmentin] Comments meperidine [From Demerol] Allergy See Verified 11/18/18 14:25 Comments sulfamethoxazole Allergy Rash Verified 11/18/18 14:25 [From Bactrim] trimethoprim [From Bactrim] Allergy Rash Verified 11/18/18 14:25 baclofen AdvReac See Verified 11/18/18 14:25 Comments Date of admission: 11/19/18 14:15 Primary care physician: Fartun Quinones CNP Consults: 11/17/18 08:20 Consult to Nurse Navigator [CONS] Routine Comment: copd - Constitutional Vitals: Temp Pulse Resp BP Pulse Ox 97.4 F L 57 22 114/68 96 11/21/18 07:34 11/21/18 07:34 11/21/18 07:34 11/21/18 07:34 11/21/18 07:34 Exam: Vitals: Reviewed General: Alert and oriented x4. In no distress Cardiovascular: Irregularly irregular, normal S1 & S2, no rubs, murmurs or gallops. Lungs: Decreased breath sounds bilaterally, no wheezes or crackles. Abdomen: Obese, Soft, non-tender, no rigidity. NABS in all 4 quadrants Extremities: Chronic venous stasis changes in the lower extremity bilaterally. Neurological: No focal neurological abnormalities Rest of the physical exam is non contributory - Patient Status Disposition: Home Health Service Condition: Fair Functional capacity at discharge: uses cane/walker Overall status at discharge: patient is back to baseline - Discharge Instructions Follow Up With: Fartun Quinones, [employer]OY[employer] [Primary Care Provider] - - Diet and Activity Activity: as per physical therapy, wear oxygen at all times Diet: diabetic diet, low salt diet
--- NOTE | 2018-11-21 09:06 | Physician Discharge Referral ---
Home Health/Hosp Referral Info Transfer to: Home Health - Diagnosis (1) Acute on chronic diastolic (congestive) heart failure Priority: Primary Status: Resolved (2) COPD (chronic obstructive pulmonary disease) Priority: Secondary Status: Chronic (3) CAD (coronary artery disease) Priority: Secondary Status: Chronic (4) Venous stasis dermatitis of both lower extremities Priority: Secondary Status: Chronic (5) Atrial fibrillation Priority: Secondary Status: Chronic (6) Acute and chronic respiratory failure Priority: Primary Status: Resolved (7) Diabetes mellitus Priority: Secondary Status: Chronic (8) Hypothyroidism Priority: Secondary Status: Chronic - Respiratory Orders Oxygen / L per min Smoking Cessation: Smoking cessation has been advised. For more information, call the [place] Tobacco Quit Line at 3-257-SVAB-NOW. - Diet/Nutrition Diet/Nutrition Orders: Regular - Activity Activity Orders: Ambulate, Walker - Services Needed Following services are medically necessary services: Nursing, Home Health Aide, Physical Therapy, Occupational Therapy - Transfer Medications Prescriptions: Furosemide [Lasix] 40 mg PO BID 30 Days #60 tablet metOLazone [Zaroxolyn] 5 mg PO DAILY 30 Days #30 tablet Home Medications: Docusate Sodium [Stool Softener] 100 mg PO BID 08/04/16 [History] Metformin HCl [Glucophage] 1,000 mg PO BID 08/04/16 [History] Nitroglycerin [Nitrostat] 0.4 mg SL Q5M PRN 08/04/16 [History] Omeprazole [PriLOSEC] 20 mg PO DAILY 08/04/16 [History] Pentoxifylline [TRENtal] 400 mg PO BID 08/04/16 [History] Budesonide/Formoterol 160/4.5 [Symbicort 160/4.5] 2 puff IH BIDR 08/28/17 [History] Cyclobenzaprine [Flexeril] 10 mg PO QAM PRN 08/28/17 [History] hydrOXYzine HCl [Hydroxyzine HCl] 25 mg PO BID PRN 02/21/18 [History] Gabapentin [Neurontin] 600 mg PO BID 04/29/18 [History] Aspirin 81 mg PO DAILY 07/05/18 [History] Atorvastatin [Lipitor] 40 mg PO HS 07/05/18 [History] FLUoxetine HCl [Prozac] 20 mg PO QAM 07/05/18 [History] Levothyroxine Sodium 75 mcg PO DAILY 09/09/18 [History] Levothyroxine Sodium [Euthyrox] 200 mcg PO DAILY 09/09/18 [History] Potassium Chloride 20 meq PO BID 09/09/18 [History] Warfarin [Coumadin] 7.5 mg PO 1800 09/09/18 [History] Metoprolol Succinate [Toprol Xl] 50 mg PO BID 09/10/18 [History] LORazepam [Ativan] 0.5 mg PO DAILY 10/20/18 [History] OxyCODONE/APAP 10/325 [Percocet 10/325 MG] 1 - 2 tab PO Q4H PRN 10/20/18 [History] Albuterol Sulfate [Proventil Inhaler] 2 puff PO Q6H PRN 10/21/18 [History] Atropine Sulfate in 0.9% NaCl [Atropine 0.01%-Ns Eye Drops] 2 drop PO Q2H PRN [History] Tiotropium [Spiriva] 18 mcg IH DAILY 10/21/18 [History] predniSONE [PredniSONE] 10 mg PO DAILY 10/21/18 [History] Albuterol Neb [Proventil Neb] 2.5 ng PO Q6H PRN 11/18/18 [History] Cyclobenzaprine HCl 10 mg PO HS PRN 11/18/18 [History] Ipratropium/Albuterol Neb [Duoneb] 3 ml IH Q6HR PRN 11/18/18 [History] traZODone [TraZODone] 50 mg PO HS 11/18/18 [History] Furosemide [Lasix] 40 mg PO BID 30 Days #60 tablet 11/21/18 [Rx] metOLazone [Zaroxolyn] 5 mg PO DAILY 30 Days #30 tablet 11/21/18 [Rx] Allergies/Adverse Reactions: Allergy/AdvReac Type Severity Reaction Status Date / Time Amoxicillin [From Augmentin] Allergy See Verified 11/18/18 14:25 Comments clavulanic acid Allergy See Verified 11/18/18 14:25 [From Augmentin] Comments meperidine [From Demerol] Allergy See Verified 11/18/18 14:25 Comments sulfamethoxazole Allergy Rash Verified 11/18/18 14:25 [From Bactrim] trimethoprim [From Bactrim] Allergy Rash Verified 11/18/18 14:25 baclofen AdvReac See Verified 11/18/18 14:25 Comments Certification: Further, I certify that my clinical findings support that this patient is homebound (i.e. absences from home require considerable and taxing effort and are for medical reasons or [facility] services or infrequently or short duration when for other reasons) because: Homebound Reason: Patient requires assistance of a person or device to safely leave home Attestation: My signature below is to certify that this patient is under my care and that I, or nurse practitioner, or a physician's library serials assistant working with me, has a [id number] encounter with this patient.
[2018-11-21] MEDS: Budesonide/Formoterol 160/4.5 1 PUFF INH IH SCH (10:40)
[2018-11-21] MEDS: Nystatin POWDER 30 GM BOTTLE TP SCH (11:32)
== END 2018-11-21 11:58 | disposition home health service (06) | DRG 291 ==
LOC: 2ANU → SUATTDRO 01:28
PROVIDERS: ADMIT Internal Medicine; ATTEND Internal Medicine

== ENCOUNTER 2018-12-29 20:36 | Observation (INO) ==
[2018-12-29 21:28] LABS: Basophils % 0.2 %; Eosinophils % 0.4 %; Hematocrit 40.4 % (37.5-50.1); Hemoglobin 12.4 g/dL (12.9-16.9); Immature Granulocytes % 0.3 % (0-4); Lymphocytes # 2.8 K/mcL (0.6-4.6); Lymphocytes % 26.8 %; Mean Corpuscular HGB Conc 30.7 g/dL (31.6-35.5); Mean Corpuscular Hemoglobin 28.8 pg (28.0-33.3); Mean Platelet Volume 10.1 fL (9.4-12.4); Monocytes # 0.8 K/mcL (0.0-1.3); Monocytes % 8.1 %; Neutrophils # 6.6 K/mcL (1.6-8.9); Platelet Count 211 K/mcL (140-400); Red Cell Distribution Width 14.5 % (11.5-14.5); Segmented Neutrophils % 64.2 %; White Blood Count 10.3 K/mcL (4.3-11.1)
[2018-12-29 21:37] LABS: INR 1.8
[2018-12-29 21:40] LABS: Activated Partial Thrombo Time 38.9 Seconds (26.0-36.0)
[2018-12-29 21:50] LABS: BUN/Creatinine Ratio 17 (6-26); Blood Urea Nitrogen 15 mg/dL (8-23); Calcium 8.9 mg/dL (8.6-10.3); Carbon Dioxide 24 mEq/L (23-29); Chloride 105 mEq/L (98-107); Glucose 114 mg/dL (70-105); Osmolality,Calculated 290 (280-300); Potassium 4.1 mEq/L (3.5-5.1); Sodium 139 mEq/L (136-145); Troponin I < 0.03 ng/mL (< 0.04); eGFR For African Americans > 60 (> 60); eGFR For Non-African Americans > 60 (> 60)
--- NOTE | 2018-12-29 23:45 | Emergency Department Note ---
Disposition Clinical Impression: COPD with acute exacerbation, Anasarca, Chronic diastolic (congestive) heart failure Disposition: Admitted As Inpatient Condition: Fair Time of Disposition: 00:27 General Adult HPI - General Chief complaint: ED Shortness of Breath/Dyspnea Stated complaint: copd, full of water Source: patient, family Limitations: no limitations Nursing Notes Reviewed: Yes Vital Signs Reviewed: Yes - History of Present Illness HPI Narrative: 63-year-old male presents to the ER for evaluation of shortness of breath and leg swelling. He states had about a 3 pound weight gain over last 48 hours. He is a hospice patient. He states he is on hospice as he was told his organs were failing. Denies any fever, chills, sweats. Patient has a history of congestive heart failure, anasarca, COPD Onset (ago): day(s) (2) Radiation: non-radiation Pain Severity: mild Pain Scale: 0 (Patient denies pain to me except leg pain which is chronic in nature) Consistency: now resolved Improves with: rest Associated symptoms: Reports: cough, shortness of breath. Denies: diaphoresis, loss of appetite, nausea/vomiting, syncope, weakness - Related Data Home Medications Medication Instructions Recorded Confirmed Docusate Sodium [Stool Softener] 100 mg PO BID 08/04/16 11/18/18 Metformin HCl [Glucophage] 1,000 mg PO BID 08/04/16 11/18/18 Nitroglycerin [Nitrostat] 0.4 mg SL Q5M PRN 08/04/16 11/18/18 Omeprazole [PriLOSEC] 20 mg PO DAILY 08/04/16 11/18/18 Pentoxifylline [TRENtal] 400 mg PO BID 08/04/16 11/18/18 Budesonide/Formoterol 160/4.5 2 puff IH BIDR 08/28/17 11/18/18 [Symbicort 160/4.5] Cyclobenzaprine [Flexeril] 10 mg PO QAM PRN 08/28/17 11/18/18 hydrOXYzine HCl [Hydroxyzine HCl] 25 mg PO BID PRN 02/21/18 11/18/18 Gabapentin [Neurontin] 600 mg PO BID 04/29/18 11/18/18 Aspirin 81 mg PO DAILY 07/05/18 11/18/18 Atorvastatin [Lipitor] 40 mg PO HS 07/05/18 11/18/18 FLUoxetine HCl [Prozac] 20 mg PO QAM 07/05/18 11/18/18 Levothyroxine Sodium 75 mcg PO DAILY 09/09/18 11/18/18 Levothyroxine Sodium [Euthyrox] 200 mcg PO DAILY 09/09/18 11/18/18 Potassium Chloride 20 meq PO BID 09/09/18 11/18/18 Warfarin [Coumadin] 7.5 mg PO 1800 09/09/18 11/18/18 Metoprolol Succinate [Toprol Xl] 50 mg PO BID 09/10/18 11/18/18 LORazepam [Ativan] 0.5 mg PO DAILY 10/20/18 11/18/18 OxyCODONE/APAP 10/325 [Percocet 1 - 2 tab PO Q4H PRN 10/20/18 11/18/18 10/325 MG] Albuterol Sulfate [Proventil 2 puff PO Q6H PRN 10/21/18 11/18/18 Inhaler] Atropine Sulfate in 0.9% NaCl 2 drop PO Q2H PRN 10/21/18 11/18/18 [Atropine 0.01%-Ns Eye Drops] Tiotropium [Spiriva] 18 mcg IH DAILY 10/21/18 11/18/18 predniSONE [PredniSONE] 10 mg PO DAILY 10/21/18 11/18/18 Albuterol Neb [Proventil Neb] 2.5 ng PO Q6H PRN 11/18/18 11/18/18 Cyclobenzaprine HCl 10 mg PO HS PRN 11/18/18 11/18/18 Ipratropium/Albuterol Neb [Duoneb] 3 ml IH Q6HR PRN 11/18/18 11/18/18 traZODone [TraZODone] 50 mg PO HS 11/18/18 11/18/18 Previous Rx's Medication Instructions Recorded Furosemide [Lasix] 40 mg PO BID 30 Days #60 tablet 11/21/18 metOLazone [Zaroxolyn] 5 mg PO DAILY 30 Days #30 tablet 11/21/18 Allergies Allergy/AdvReac Type Severity Reaction Status Date / Time Amoxicillin [From Augmentin] Allergy See Verified 12/30/18 01:07 Comments clavulanic acid Allergy See Verified 12/30/18 01:07 [From Augmentin] Comments meperidine [From Demerol] Allergy See Verified 12/30/18 01:07 Comments sulfamethoxazole Allergy Rash Verified 12/30/18 01:07 [From Bactrim] trimethoprim [From Bactrim] Allergy Rash Verified 12/30/18 01:07 baclofen AdvReac See Verified 12/30/18 01:07 Comments All systems ED: reviewed and negative except as stated. Constitutional: Denies: fever, chills, weakness, weight change Eyes: Denies: eye pain, eye discharge, vision change ENT ED: Denies: ear pain, throat pain, dental pain, hearing loss, epistaxis, congestion, dysphagia Cardiovascular: Denies: chest pain, palpitations, dyspnea on exertion, edema, syncope Respiratory: Reports: cough, dyspnea, other (Pedal edema). Denies: wheezes, hemoptysis, stridor Gastrointestinal: Denies: abdominal pain, nausea, vomiting, diarrhea, c onstipation, hematemesis, melena, hematochezia Genitourinary: Denies: urgency, dysuria, frequency, hematuria Musculoskeletal: Denies: back pain, neck pain, arthralgia, myalgia Integumentary: Denies: rash, abrasion, lesions Neurological: Denies: headache, weakness, numbness, paresthesias, confusion, abnormal gait, vertigo Psychiatric: Denies: anxiety, depression, suicidal thoughts, homicidal thoughts, auditory hallucinations, visual hallucinations Past Medical History - Past Medical History Attestation: Yes The following information was validated with the patient. Source: patient, old records reviewed, nursing notes reviewed Medical history: Reports: asthma, atrial fibrillation, CHF, COPD, coronary artery disease, diabetes, hyperlipidemia, hypertension, myocardial infarction, peripheral artery disease, renal disease, thyroid disease, other Surgical history: Reports: angioplasty/stent, orthopedic, other Psychiatric history: Reports: anxiety, depression - Social History Smoking Status: Current every day smoker Smokeless Tobacco Status: No Alcohol use: Reports: occasionally Drug use: Reports: none Physical Exam - General Limitations: no limitations General appearance: alert, in no apparent distress - Head Head exam: atraumatic, normocephalic, normal inspection - Eye Eye exam: Present: normal appearance, PERRL, EOMI - ENT ENT exam: normal exam, normal oropharynx, mucous membranes moist - Neck Neck exam: Present: normal inspection, full ROM, trachea midline. Absent: tenderness - Chest Chest inspection: Present: normal inspection, symmetric chest wall rise - Respiratory Respiratory exam: Present: normal lung sounds bilaterally. Absent: respiratory distress, wheezes - Cardiovascular Cardiovascular exam: Present: regular rate, normal rhythm, normal heart sounds - Abdominal Exam Abdominal exam: Present: soft, Non-Tender, normal bowel sounds. Absent: tenderness, distention, guarding, rebound, rigidity - Extremities Exam Extremities exam: Present: normal inspection, full ROM, normal capillary refill. Absent: tenderness, pedal edema - Back Exam Back exam: Present: normal inspection, full ROM. Absent: tenderness, CVA tenderness (R), CVA tenderness (L) - Neurological Exam Neurological exam: Present: alert, oriented X3, CN II-XII intact, normal gait, reflexes normal - Psychiatric Psychiatric exam: Present: normal affect, normal mood - Skin Skin exam: Present: warm, dry, intact, normal color Course Course Narrative: Patient was placed in examination room. H&P obtained. Nurse's notes reviewed Patient patient lab work. He did have wheezing bilateral. DuoNeb was given. Lasix IV push was given. He declined Ppee placement. Patient's chest x-ray did not show any obvious infiltrate, cephalization of flow, or fluid in the fissures. Patient does have anasarca. His last albumin was just below are low end of normal Patient is feeling better. He is not sure why he was on hospice other than the fact he was told that all of his organs were systems were failing. He does have history of diabetes, hypertension, COPD, heart attack and questionable renal failure or acute kidney injury in the past. Renal nephrology note this does not seem to be the case and his kidney function today is normal and his troponin was also normal. - Consultations Consultation #1: Dr. Macario was notified and did agree to observation of this patient. Time: 00:25 Vital Signs Temperature 98.1 F 12/29/18 20:57 Pulse Rate 96 12/29/18 20:57 Respiratory Rate 22 12/29/18 20:57 Blood Pressure 120/81 12/29/18 20:57 O2 Sat by Pulse Oximetry 98 12/29/18 20:57 Temperature 98.1 F 12/29/18 20:57 Pulse Rate 82 12/30/18 02:15 Respiratory Rate 19 12/30/18 02:15 Blood Pressure 143/88 12/30/18 02:15 O2 Sat by Pulse Oximetry 100 12/30/18 02:15 Oxygen Delivery Oxygen Delivery Nasal Cannula Medical Decision Making - Medical Records Medical records reviewed: Yes I reviewed the patient's medical records. - Lab Data Lab results reviewed: Yes I reviewed the patient's lab results. Result diagrams: 12/29/18 21:16 12/29/18 21:16 Lab Results 12/29/18 12/29/18 12/29/18 Range/Units 21:16 21:16 21:16 WBC 10.3 (4.3-11.1) K/mcL RBC 4.30 (4.19-5.50) M/mcL Hgb 12.4 L (12.9-16.9) g/dL Hct 40.4 (37.5-50.1) % MCV 94.0 (83.0-100.0) fL MCH 28.8 (28.0-33.3) pg MCHC 30.7 L (31.6-35.5) g/dL RDW 14.5 (11.5-14.5) % Plt Count 211 (140-400) K/mcL MPV 10.1 (9.4-12.4) fL Immature Gran % 0.3 (0-4) % Seg Neutrophils % 64.2 % Lymphocytes % 26.8 % Monocytes % 8.1 % Eosinophils % 0.4 % Basophils % 0.2 % Neutrophils # 6.6 (1.6-8.9) K/mcL Lymphocytes # 2.8 (0.6-4.6) K/mcL Monocytes # 0.8 (0.0-1.3) K/mcL Eosinophils # 0.0 (0.0-0.6) K/mcL Basophils # 0.0 (0.0-0.2) K/mcL PT 21.0 H (9.4-12.1) Seconds INR 1.8 APTT 38.9 H (26.0-36.0) Seconds Sodium 139 (136-145) mEq/L Potassium 4.1 (3.5-5.1) mEq/L Chloride 105 (98-107) mEq/L Carbon Dioxide 24 (23-29) mEq/L BUN 15 (8-23) mg/dL Creatinine 0.89 (0.70-1.30) mg/dL Est GFR ( Amer) > 60 (> 60) Est GFR (Non-Af Amer) > 60 (> 60) BUN/Creatinine Ratio 17 (6-26) Glucose 114 H (70-105) mg/dL Calculated Osmolality 290 (280-300) Lactic Acid (0.5-2.2) mmol/L Calcium 8.9 (8.6-10.3) mg/dL Total Bilirubin (0.3-1.0) mg/dL Direct Bilirubin (0.0-0.2) mg/dL Indirect Bilirubin (0.0-1.2) mg/dL AST (13-39) Units/L ALT (7-52) Units/L Alkaline Phosphatase (34-104) Units/L Troponin I < 0.03 (< 0.04) ng/mL B-Natriuretic Peptide (Less than 100) pg/mL Serum Total Protein (6.4-8.9) g/dL Albumin (3.5-5.7) g/dL Globulin (2.4-3.5) g/dL Albumin/Globulin Ratio (1.1-2.2) 12/29/18 12/29/18 12/30/18 Range/Units 21:16 21:16 00:25 WBC (4.3-11.1) K/mcL RBC (4.19-5.50) M/mcL Hgb (12.9-16.9) g/dL Hct (37.5-50.1) % MCV (83.0-100.0) fL MCH (28.0-33.3) pg MCHC (31.6-35.5) g/dL RDW (11.5-14.5) % Plt Count (140-400) K/mcL MPV (9.4-12.4) fL Immature Gran % (0-4) % Seg Neutrophils % % Lymphocytes % % Monocytes % % Eosinophils % % Basophils % % Neutrophils # (1.6-8.9) K/mcL Lymphocytes # (0.6-4.6) K/mcL Monocytes # (0.0-1.3) K/mcL Eosinophils # (0.0-0.6) K/mcL Basophils # (0.0-0.2) K/mcL PT (9.4-12.1) Seconds INR APTT (26.0-36.0) Seconds Sodium (136-145) mEq/L Potassium (3.5-5.1) mEq/L Chloride (98-107) mEq/L Carbon Dioxide (23-29) mEq/L BUN (8-23) mg/dL Creatinine (0.70-1.30) mg/dL Est GFR ( Amer) (> 60) Est GFR (Non-Af Amer) (> 60) BUN/Creatinine Ratio (6-26) Glucose (70-105) mg/dL Calculated Osmolality (280-300) Lactic Acid 1.9 (0.5-2.2) mmol/L Calcium (8.6-10.3) mg/dL Total Bilirubin 0.3 (0.3-1.0) mg/dL Direct Bilirubin 0.0 (0.0-0.2) mg/dL Indirect Bilirubin 0.3 (0.0-1.2) mg/dL AST 10 L (13-39) Units/L ALT 10 (7-52) Units/L Alkaline Phosphatase 36 (34-104) Units/L Troponin I (< 0.04) ng/mL B-Natriuretic Peptide 116 H (Less than 100) pg/mL Serum Total Protein 6.3 L (6.4-8.9) g/dL Albumin 3.5 (3.5-5.7) g/dL Globulin 2.8 (2.4-3.5) g/dL Albumin/Globulin Ratio 1.3 (1.1-2.2) - Radiology Data Radiology results reviewed: Yes I reviewed the patient's radiology results. EXAMINATION: TWO XRAY VIEWS OF THE CHEST 12/29/2018 9:41 pm COMPARISON: Prior studies including 09/08/2018 HISTORY: ORDERING SYSTEM PROVIDED HISTORY: SOB Shortness breath, lower extremity swelling. Symptoms for 2 days. Initial study. History of asthma, atrial fibrillation, congestive heart failure, hypertension, myocardial infarction, obstructive lung disease. FINDINGS: Study is limited by body habitus. Elevation left hemidiaphragm is again noted. The heart size and mediastinal contours are stable. The lungs are clear. XR/XR chest 2V IMPRESSION: Stable study. D/ / Jazmine Zaragoza Cha, MD / Jazmine Zaragoza Cha, MD Interpreting Provider: Jazmine Zaragoza Cha, MD - EKG Data EKG #1 EKG attestation: Yes I reviewed and interpreted this EKG. EKG results narrative: EKG shows a normal sinus rhythm 83 bpm normal axis normal MN interval, IVCD, no acute ST elevations minimal underlying artifact Critical Care Time Critical Care Time: Yes Total Critical Care Time: 30 Attestation: The high probability of a clinically significant, sudden or life threatening deterioration of the patient's condition required my full and direct attention, intervention and personal management.
[2018-12-29] MEDS ORDERED: Ipratropium/Albuterol Neb 3 ML IH ONE (23:47)
[2018-12-29] MEDS ORDERED: Furosemide 20 MG/2 ML VIAL IVP ONE (23:48)
[2018-12-30 00:54] LABS: Albumin 3.5 g/dL (3.5-5.7); Albumin/Globulin Ratio 1.3 (1.1-2.2); Bilirubin,Indirect 0.3 mg/dL (0.0-1.2); Bilirubin,Total 0.3 mg/dL (0.3-1.0); Globulin 2.8 g/dL (2.4-3.5); Total Protein 6.3 g/dL (6.4-8.9)
[2018-12-30] MEDS ORDERED: Naloxone 0.4 MG/ML INJ IVP PRN (06:23)
[2018-12-30] MEDS ORDERED: D5% in Water 1,000 ML IVC PRN (06:26)
[2018-12-30] MEDS ORDERED: Albuterol 2.5 MG/3 ML NEBULIZER IH PRN (06:26)
[2018-12-30] MEDS ORDERED: Dextrose Gel 15 GM/37.5 ML TUBE PO PRN ×2 (06:26)
[2018-12-30] MEDS ORDERED: *HR* Dextrose 50 % in Water (Syg) 50 ML SYRINGE IVP PRN (06:26)
[2018-12-30 06:46] LABS: Hematocrit 37.1 % (37.5-50.1); Hemoglobin 11.5 g/dL (12.9-16.9); Mean Corpuscular Volume 93.5 fL (83.0-100.0); Mean Platelet Volume 9.9 fL (9.4-12.4); Platelet Count 180 K/mcL (140-400); Red Blood Count 3.97 M/mcL (4.19-5.50); Red Cell Distribution Width 14.4 % (11.5-14.5); White Blood Count 9.4 K/mcL (4.3-11.1)
[2018-12-30 06:55] LABS: Prothrombin Time 22.6 Seconds (9.4-12.1)
[2018-12-30 07:08] LABS: BUN/Creatinine Ratio 16 (6-26); Blood Urea Nitrogen 15 mg/dL (8-23); Calcium 8.7 mg/dL (8.6-10.3); Carbon Dioxide 29 mEq/L (23-29); Chloride 103 mEq/L (98-107); Glucose 116 mg/dL (70-105); Osmolality,Calculated 294 (280-300); Potassium 3.6 mEq/L (3.5-5.1); Sodium 141 mEq/L (136-145); eGFR For African Americans > 60 (> 60); eGFR For Non-African Americans > 60 (> 60)
--- NOTE | 2018-12-30 07:33 | Internal Med History&Physical ---
Date of Encounter: 12/30/18 Time of Encounter: 05:55 Internal Medicine - H&P: HPI Chief complaint: Shortnes of breath Admitted From: Emergency Dept Plans for Post Hospital Care: Home History of present illness: Mr. Davila is a 63 year old male Patient presented to the ER with shortness of breath and swelling in his extremities. He states that he had about a 9 pound weight gain in the last 2 days, and has seen increased swelling in his legs, hands and abdomen. He is a hospice patient through [facility], and receives cares 3 times a week. His hospice nurse had been visiting him and noted that he was retaining fluid and recommended that he come to the hospital for further evaluation. ER vital signs: Within normal limits CBC: Unremarkable BMP: Unremarkable, slightly elevated blood glucose of 114. Initial troponin undetectable BNP 116 Chest x-ray showed no acute abnormalities. EKG: Sinus rhythm, rate 83, No ST changes In the ER patient received a 60mg dose of lasix and breathing treatments. He was admitted to the hospital for further management. Upon my evaluation, patient is resting comfortably in the hospital bed in no acute distress. He denies chest pain, abdominal pain, vomiting, diarrhea and constipation. He did have some nausea however. His shortness of breath has also improved. Patient confirms that he is a hospice patient, stating that he has been told that due to his multiple organ failures, he only has 6 months left to live. He requires BiPAP at night, and does check his weight daily for any fluctuations like this. He says he did eat a watermelon over the weekend which may have triggered his symptoms. Past Med Surg Social Fam HX - Past Medical History Medical history: asthma, atrial fibrillation, CHF, COPD, coronary artery disease, diabetes, hyperlipidemia, hypertension, myocardial infarction, peripheral artery disease, renal disease, thyroid disease, other Additional medical history: Grave's disease, CKD (unsure what stage). Psychiatric history: anxiety, depression - Past Surgical History Surgical History: angioplasty/stent, orthopedic, other Additional surgical history: one cardiac stent. left hand surgery. Bilateral eye surgery - Social History Smoking Status: Current every day smoker Packs per day: 0.5 Smokeless Tobacco Status: No Alcohol use: none, occasionally Drug use: none - Family History Mother Family Member Ethnicity: Non- Living Status: Hx Family Cardiac Disorders: No Hx Family Respiratory Disorders: No Father Family Member Ethnicity: Non- Living Status: Hx Family Cardiac Disorders: No Hx Family Respiratory Disorders: No Hx Family Cancer: Yes (pancreatic) Brother Family Member Ethnicity: Non- Living Status: Still Living Hx Family Cardiac Disorders: Yes (Pacemaker) Hx Family Endocrine Disorder: Yes (DM) Sister Family Member Ethnicity: Non- Living Status: Still Living Hx Family Cardiac Disorders: No Hx Family Respiratory Disorders: No Hx Family Cancer: Yes (dad pancereas) Hx Family GI Disorders: No Hx Family Endocrine Disorder: No Hx Family Neuromuscular Disorders: No Hx Family Neurologic Disorders: No Hx Family HEENT Disorders: No Hx Family Autoimmune Disorders: No Internal Medicine - H&P: Meds Docusate Sodium [Stool Softener] 100 mg PO BID 08/04/16 [History] Metformin HCl [Glucophage] 1,000 mg PO BID 08/04/16 [History] Nitroglycerin [Nitrostat] 0.4 mg SL Q5M PRN 08/04/16 [History] Omeprazole [PriLOSEC] 20 mg PO DAILY 08/04/16 [History] Pentoxifylline [TRENtal] 400 mg PO BID 08/04/16 [History] Budesonide/Formoterol 160/4.5 [Symbicort 160/4.5] 2 puff IH BIDR 08/28/17 [History] Cyclobenzaprine [Flexeril] 10 mg PO QAM PRN 08/28/17 [History] hydrOXYzine HCl [Hydroxyzine HCl] 25 mg PO BID PRN 02/21/18 [History] Gabapentin [Neurontin] 600 mg PO BID 04/29/18 [History] Aspirin 81 mg PO DAILY 07/05/18 [History] Atorvastatin [Lipitor] 40 mg PO HS 07/05/18 [History] FLUoxetine HCl [Prozac] 20 mg PO QAM 07/05/18 [History] Levothyroxine Sodium 75 mcg PO DAILY 09/09/18 [History] Levothyroxine Sodium [Euthyrox] 200 mcg PO DAILY 09/09/18 [History] Potassium Chloride 20 meq PO BID 09/09/18 [History] Warfarin [Coumadin] 7.5 mg PO 1800 09/09/18 [History] Metoprolol Succinate [Toprol Xl] 50 mg PO BID 09/10/18 [History] LORazepam [Ativan] 0.5 mg PO DAILY 10/20/18 [History] OxyCODONE/APAP 10/325 [Percocet 10/325 MG] 1 - 2 tab PO Q4H PRN 10/20/18 [History] Albuterol Sulfate [Proventil Inhaler] 2 puff PO Q6H PRN 10/21/18 [History] Atropine Sulfate in 0.9% NaCl [Atropine 0.01%-Ns Eye Drops] 2 drop PO Q2H PRN 10/21/18 [History] Tiotropium [Spiriva] 18 mcg IH DAILY 10/21/18 [History] predniSONE [PredniSONE] 10 mg PO DAILY 10/21/18 [History] Albuterol Neb [Proventil Neb] 2.5 ng PO Q6H PRN 11/18/18 [History] Cyclobenzaprine HCl 10 mg PO HS PRN 11/18/18 [History] Ipratropium/Albuterol Neb [Duoneb] 3 ml IH Q6HR PRN 11/18/18 [History] traZODone [TraZODone] 50 mg PO HS 11/18/18 [History] Furosemide [Lasix] 40 mg PO BID 30 Days #60 tablet 11/21/18 [Rx] metOLazone [Zaroxolyn] 5 mg PO DAILY 30 Days #30 tablet 11/21/18 [Rx] Allergy/AdvReac Type Severity Reaction Status Date / Time Amoxicillin [From Augmentin] Allergy See Verified 12/30/18 01:07 Comments clavulanic acid Allergy See Verified 12/30/18 01:07 [From Augmentin] Comments meperidine [From Demerol] Allergy See Verified 12/30/18 01:07 Comments sulfamethoxazole Allergy Rash Verified 12/30/18 01:07 [From Bactrim] trimethoprim [From Bactrim] Allergy Rash Verified 12/30/18 01:07 baclofen AdvReac See Verified 12/30/18 01:07 Comments All Systems PM: A 10-system review of systems was performed and is negative for pertinent findings except as documented above in the HPI. - Constitutional Vitals: Temp Pulse Resp BP Pulse Ox 98.1 F 82 24 143/88 100 12/29/18 20:57 12/30/18 02:15 12/30/18 02:15 12/30/18 02:15 12/30/18 02:15 General appearance: Present: cooperative, A&O X 3, pleasant, no acute distress, answers questions appropriately Exam: - - Head Head exam: Present: normal inspection - Eye Eye exam: Present: EOMI, normal appearance - Respiratory Respiratory exam: Present: rales, wheezes. Absent: CTAB, respiratory distress, rhonchi - Cardiovascular Cardiovascular exam: Present: irregular rhythm. Absent: diastolic murmur, systolic murmur - GI/Abdominal GI/Abdominal exam: Present: distended, normal bowel sounds, soft. Absent: tenderness - Extremities Exam Extremities exam: Present: pedal edema, warm, radial pulses palpable and symmetrical. Absent: calf tenderness, tenderness Additional comments: 2+ pitting edema bilaterally - Neurological Exam Neurological exam: Present: no focal deficits, strengths equal and symetr throughout. Absent: motor sensory deficit, facial droop, speech deficit - Skin Skin exam: Present: dry, normal color, warm Internal Med - H&P Results - Labs CBC & Chem 7: 12/30/18 06:35 12/30/18 06:35 Labs: Short CBC 12/29/18 12/30/18 Range/Units 21:16 06:35 WBC 10.3 9.4 (4.3-11.1) K/mcL Hgb 12.4 L 11.5 L (12.9-16.9) g/dL Hct 40.4 37.1 L (37.5-50.1) % Plt Count 211 180 (140-400) K/mcL Neutrophils # 6.6 (1.6-8.9) K/mcL BMP 12/29/18 12/30/18 21:16 06:35 Sodium 139 141 Potassium 4.1 3.6 Chloride 105 103 Carbon Dioxide 24 29 BUN 15 15 Creatinine 0.89 0.91 Glucose 114 H 116 H Calcium 8.9 8.7 Cardiac Enzymes 12/29/18 Range/Units 21:16 Troponin I < 0.03 (< 0.04) ng/mL Liver Function 12/30/18 Range/Units 00:25 Total Bilirubin 0.3 (0.3-1.0) mg/dL Direct Bilirubin 0.0 (0.0-0.2) mg/dL AST 10 L (13-39) Units/L ALT 10 (7-52) Units/L Alkaline Phosphatase 36 (34-104) Units/L Albumin 3.5 (3.5-5.7) g/dL - Impressions ITS Impressions Chest X-Ray 12/29/18 21:00 IMPRESSION: Stable study. D/ / Jazmine Zaragoza Cha, MD / Jazmine Zaragoza Cha, MD Interpreting Provider: Jazmine Zaragoza Cha, MD - Assessment and Plan (1) Shortness of breath Current Visit: No Status: Acute Assessment and plan: Likely secondary to COPD and fluid overload. Patient wheezy on exam. Has had good response to the lasix. Continue IV lasix Continue breathing treatments PO steroids. Oxygen supplementation as needed Continuous pulse oximetry Strict I's&O's Daily weights (2) Anasarca Current Visit: Yes Status: Chronic Assessment and plan: Patient does have swelling in his extremities, started on IV lasix in the ER. Continue IV lasix Strict I's&O's Daily weights (3) Diabetes mellitus Current Visit: No Status: Chronic Assessment and plan: Patient is not an insulin dependent diabetic Monitor sugars ACHS Diabetic/cardiac diet Low dose insulin sliding scale as needed Hold home meds. 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 use Diabetes mellitus complication status: with hyperglycemia Qualified Code(s): E11.65 - Type 2 diabetes mellitus with hyperglycemia (4) BECK treated with BiPAP Current Visit: No Status: Chronic Assessment and plan: Respiratory therapy consult Continue BiPAP (5) Atrial fibrillation Current Visit: No Status: Chronic Assessment and plan: Chronic, takes warfarin and metoprolol at home Continue home meds once confirmed Cardiac monitoring Qualifiers: Atrial fibrillation type: chronic Qualified Code(s): I48.2 - Chronic atrial fibrillation (6) Chronic diastolic (congestive) heart failure Current Visit: Yes Status: Acute Assessment and plan: Echo report from 07/14: Impressions: LVEF 65%. Normal LV chamber size, wall thickness and function. Mild left ventricular diastolic dysfunction. Grossly, the right ventricle appears wildly dilated. Function is normal. Mild pulmonary hypertension. Estimated RVSP is 41 mmHg. RVSP not well obtained due to poor TR jet and possibly underestimated. No obvious significant valvular dysfunction. Management of fluid overload as above (7) COPD with acute exacerbation Current Visit: Yes Status: Acute Assessment and plan: Continue breathing treatments PO steroids Oxygen supplementation as above (8) Tobacco abuse Current Visit: No Status: Chronic Assessment and plan: Patient still smokes on occasion, despite risks being on chronic oxygen. Declines nicotine patch (9) DVT prophylaxis Current Visit: No Status: Acute Assessment and plan: Continue home warfarin Pharmacy to dose - Time Spent With Patient Total time spent is greater than 50% in coordination of care (as documented) at patient's floor/unit and/or counseling patient: Greater than 35 minutes
[2018-12-30] MEDS ORDERED: Furosemide 40 MG/4 ML VIAL IVP SCH (09:00)
[2018-12-30] MEDS: Furosemide 40 MG/4 ML VIAL IVP SCH ×2 (09:09→17:03)
[2018-12-30] MEDS: predniSONE 20 MG TABLET PO SCH (09:09)
[2018-12-30] MEDS: Insulin LISPRO 300 UNITS/3 ML VIAL SQ SCH ×4 (09:09→21:28)
[2018-12-30] MEDS: Ipratropium/Albuterol Neb 3 ML IH SCH ×3 (10:06→22:14)
--- NOTE | 2018-12-30 11:11 | Event Note ---
Date of Encounter: 12/30/18 Time of Encounter: 08:10 I saw patient and examined patient. I agree with admitting provider's assessment and plan. Will continue current management.
[2018-12-30] MEDS ORDERED: *HR* LORazepam 0.5 MG TABLET PO ONE (16:32)
[2018-12-30] MEDS ORDERED: *HR* Warfarin 7.5 MG TABLET PO ONE (18:00)
[2018-12-30] MEDS ORDERED: Warfarin perPT PO PRN (18:00)
[2018-12-30] MEDS: traZODone 50 MG TABLET PO SCH (23:41)
[2018-12-30] MEDS: *HR* OxyCODONE/APAP 10/325 TABLET PO PRN (23:41)
[2018-12-31] MEDS: Ipratropium/Albuterol Neb 3 ML IH SCH ×4 (04:18→22:23)
[2018-12-31 05:51] LABS: Basophils % 0.4 %; Eosinophils # 0.1 K/mcL (0.0-0.6); Eosinophils % 0.6 %; Hematocrit 35.8 % (37.5-50.1); Hemoglobin 11.1 g/dL (12.9-16.9); Immature Granulocytes % 0.5 % (0-4); Lymphocytes # 2.6 K/mcL (0.6-4.6); Lymphocytes % 32.6 %; Mean Corpuscular Hemoglobin 28.8 pg (28.0-33.3); Mean Corpuscular Volume 92.7 fL (83.0-100.0); Mean Platelet Volume 10.3 fL (9.4-12.4); Monocytes # 0.8 K/mcL (0.0-1.3); Monocytes % 10.1 %; Neutrophils # 4.4 K/mcL (1.6-8.9); Platelet Count 178 K/mcL (140-400); Red Blood Count 3.86 M/mcL (4.19-5.50); Red Cell Distribution Width 14.1 % (11.5-14.5); Segmented Neutrophils % 55.8 %; White Blood Count 7.8 K/mcL (4.3-11.1)
[2018-12-31 05:59] LABS: INR 1.7; Prothrombin Time 19.8 Seconds (9.4-12.1)
[2018-12-31 06:09] LABS: BUN/Creatinine Ratio 25 (6-26); Blood Urea Nitrogen 21 mg/dL (8-23); Calcium 8.7 mg/dL (8.6-10.3); Carbon Dioxide 28 mEq/L (23-29); Chloride 102 mEq/L (98-107); Glucose 124 mg/dL (70-105); Osmolality,Calculated 294 (280-300); Potassium 3.4 mEq/L (3.5-5.1); Sodium 140 mEq/L (136-145); eGFR For African Americans > 60 (> 60); eGFR For Non-African Americans > 60 (> 60)
[2018-12-31] MEDS: Insulin LISPRO 300 UNITS/3 ML VIAL SQ SCH ×4 (07:15→21:48)
[2018-12-31] MEDS ORDERED: hydrOXYzine pamoate 25 MG CAPSULE PO PRN (07:16)
[2018-12-31] MEDS ORDERED: Ondansetron ODT 4 MG TAB.RAPDIS PO PRN (07:16)
[2018-12-31] MEDS ORDERED: Nitroglycerin 0.4 MG TAB.SUBL SL PRN (07:16)
[2018-12-31] MEDS ORDERED: *HR* LORazepam 0.5 MG TABLET PO PRN ×2 (07:16→07:37)
[2018-12-31] MEDS ORDERED: Atropine Sulfate 1% 40 DROP/2 ML BOTTLE SL PRN (07:16)
[2018-12-31] MEDS ORDERED: NON-FORMULARY MEDICATION 1 EACH EACH (Levothyroxine Sodium [Euthyrox] 200 MCG) PO SCH (09:00)
[2018-12-31] MEDS ORDERED: metOLazone 5 MG TABLET PO SCH (09:00)
[2018-12-31] MEDS: predniSONE 20 MG TABLET PO SCH (09:18)
[2018-12-31] MEDS: FLUoxetine 20 MG CAPSULE PO SCH (09:18)
[2018-12-31] MEDS: Gabapentin 300 MG CAPSULE PO SCH ×2 (09:18→21:40)
[2018-12-31] MEDS: metOLazone 5 MG TABLET PO SCH (09:18)
[2018-12-31] MEDS: Metoprolol XL (24 HR) Succ 50 MG TAB.ER.24H PO SCH (09:18)
[2018-12-31] MEDS: Aspirin 81 MG TAB.CHEW PO SCH (09:18)
[2018-12-31] MEDS: Budesonide/Formoterol 160/4.5 1 PUFF INH IH SCH ×2 (09:51→22:23)
[2018-12-31] MEDS: Furosemide 40 MG/4 ML VIAL IVP SCH ×2 (10:10→16:09)
[2018-12-31] MEDS: *HR* OxyCODONE/APAP 10/325 TABLET PO PRN ×2 (10:15→21:40)
--- NOTE | 2018-12-31 11:22 | Internal Med Progress Note ---
Hospitalist Progress Note - Encounter Date of Encounter: 12/31/18 Time of Encounter: 08:30 - Subjective Interval History: No acute events overnight. Patient seen and examined. He states that his shortness of breath is improving. He denies chest, pain palpitations and lightheadedness. - Exam Vitals: Temp Pulse Resp BP Pulse Ox 36.5 C 81 18 111/68 98 12/31/18 06:59 12/31/18 06:59 12/31/18 09:54 12/31/18 06:59 12/31/18 09:54 Exam: GENERAL: Not in distress. Alert and Oriented HEENT: EOMI, PERRLA MOUTH: Moist oral mucosa NECK:No JVD, No lymph nodes. CHEST AND LUNGS: Normal breath sounds, no wheezes or crackles HEART: S1 and S2 normal, no murmurs ABDOMEN: Soft, nontender, no organomegaly SKIN: Normal color, no rahses, no lesions EXTREMITIES: +3 bipedal edema with venous stasis dermatitis bilaterally. NEUROLOGICAL: Normal cognition, normal motor and sensory exam. - Assessment and Plan (1) Shortness of breath Current Visit: No Status: Acute Assessment and Plan: Patient admits improving shortness of breath this morning. Continue IV lasix Continue breathing treatments PO steroids. Oxygen supplementation as needed Continuous pulse oximetry Strict I's&O's Daily weights (2) Diabetes mellitus Current Visit: No Status: Chronic Assessment and Plan: Accu-Cheks Low dose insulin sliding scale as needed Hold home meds. (3) Tobacco abuse Current Visit: No Status: Chronic Assessment and Plan: Patient still smokes on occasion, despite risks being on chronic oxygen. He has been counseled on available options to quit smoking Declines nicotine patch (4) BECK treated with BiPAP Current Visit: No Status: Chronic Assessment and Plan: Respiratory therapy consult Continue BiPAP (5) Atrial fibrillation Current Visit: No Status: Chronic Assessment and Plan: Metoprolol and warfarin. Monitor (6) Anasarca Current Visit: Yes Status: Chronic Assessment and Plan: Still has +3 bipedal pitting edema. Continue IV lasix Strict I's&O's Daily weights (7) Chronic diastolic (congestive) heart failure Current Visit: Yes Status: Acute Assessment and Plan: Echo report from 07/14: Impressions: LVEF 65%. Normal LV chamber size, wall thickness and function. Mild left ventricular diastolic dysfunction. Grossly, the right ventricle appears wildly dilated. Function is normal. Mild pulmonary hypertension. Estimated RVSP is 41 mmHg. RVSP not well obtained due to poor TR jet and possibly underestimated. No obvious significant valvular dysfunction. Management of fluid overload as above (8) COPD with acute exacerbation Current Visit: Yes Status: Acute Assessment and Plan: Continue breathing treatments PO steroids Oxygen supplementation as above (9) DVT prophylaxis Current Visit: No Status: Acute Assessment and Plan: Warfarin - Time Spent with Patient Total time spent is greater than 50% in coordination of care (as documented) at patient's floor/unit and/or counseling patient: Internal Medicine: Result - Labs CBC & Chem 7: 12/31/18 04:57 12/31/18 04:57 Labs: Short CBC 12/31/18 Range/Units 04:57 WBC 7.8 (4.3-11.1) K/mcL Hgb 11.1 L (12.9-16.9) g/dL Hct 35.8 L (37.5-50.1) % Plt Count 178 (140-400) K/mcL Neutrophils # 4.4 (1.6-8.9) K/mcL BMP 12/31/18 04:57 Sodium 140 Potassium 3.4 L Chloride 102 Carbon Dioxide 28 BUN 21 Creatinine 0.84 Glucose 124 H Calcium 8.7 - ABG Interpretation ABG results: PT/INR, D-dimer PT 19.8 Seconds (9.4-12.1) H 12/31/18 04:57 Consult Discharge Plan - Plan Referrals: Fartun Quinones, BREAKFAST BAR ATTENDANT [Primary Care Provider] - (2) Diabetes mellitus Qualifiers: Diabetes mellitus type: type 2 Diabetes mellitus fdc insulin use: without fdc use Diabetes mellitus complication status: with hyperglycemia Qualified Code(s): E11.65 - Type 2 diabetes mellitus with hyperglycemia (5) Atrial fibrillation Qualifiers: Atrial fibrillation type: chronic Qualified Code(s): I48.2 - Chronic atrial fibrillation
--- NOTE | 2018-12-31 11:37 | Electrocardiograph Report ---
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
[2018-12-31] MEDS ORDERED: *HR* Warfarin 7.5 MG TABLET PO ONE (18:00)
[2018-12-31] MEDS ORDERED: *HR* Warfarin 7.5 MG TABLET PO SCH (18:00)
[2018-12-31] MEDS ORDERED: traZODone 50 MG TABLET PO SCH (21:00)
[2018-12-31] MEDS: traZODone 50 MG TABLET PO SCH (21:40)
[2019-01-01] MEDS: Ipratropium/Albuterol Neb 3 ML IH SCH ×2 (04:02→10:13)
[2019-01-01 05:27] LABS: Hematocrit 39.5 % (37.5-50.1); Hemoglobin 12.2 g/dL (12.9-16.9); Immature Granulocytes % 0.7 % (0-4); Lymphocytes % 27.9 %; Mean Corpuscular HGB Conc 30.9 g/dL (31.6-35.5); Mean Corpuscular Hemoglobin 28.6 pg (28.0-33.3); Mean Corpuscular Volume 92.7 fL (83.0-100.0); Mean Platelet Volume 9.9 fL (9.4-12.4); Platelet Count 200 K/mcL (140-400); Red Blood Count 4.26 M/mcL (4.19-5.50); Red Cell Distribution Width 14.1 % (11.5-14.5); Segmented Neutrophils % 59.5 %
[2019-01-01 05:28] LABS: Basophils % 0.2 %; Eosinophils # 0.1 K/mcL (0.0-0.6); Eosinophils % 0.7 %; Lymphocytes # 2.8 K/mcL (0.6-4.6); Monocytes # 1.1 K/mcL (0.0-1.3); Neutrophils # 5.9 K/mcL (1.6-8.9)
[2019-01-01 05:39] LABS: INR 1.6; Prothrombin Time 18.1 Seconds (9.4-12.1)
[2019-01-01 05:45] LABS: BUN/Creatinine Ratio 26 (6-26); Blood Urea Nitrogen 23 mg/dL (8-23); Carbon Dioxide 32 mEq/L (23-29); Chloride 97 mEq/L (98-107); Glucose 137 mg/dL (70-105); Osmolality,Calculated 288 (280-300); Potassium 3.5 mEq/L (3.5-5.1); Sodium 136 mEq/L (136-145); eGFR For African Americans > 60 (> 60); eGFR For Non-African Americans > 60 (> 60)
[2019-01-01 07:21] VITALS: BP 115/68
[2019-01-01] MEDS: *HR* OxyCODONE/APAP 10/325 TABLET PO PRN (09:40)
[2019-01-01] MEDS: Furosemide 40 MG/4 ML VIAL IVP SCH (09:41)
[2019-01-01] MEDS: Metoprolol XL (24 HR) Succ 50 MG TAB.ER.24H PO SCH (09:41)
[2019-01-01] MEDS: metOLazone 5 MG TABLET PO SCH (09:41)
[2019-01-01] MEDS: Aspirin 81 MG TAB.CHEW PO SCH (09:41)
[2019-01-01] MEDS: predniSONE 20 MG TABLET PO SCH (09:41)
[2019-01-01] MEDS: Gabapentin 300 MG CAPSULE PO SCH (09:41)
[2019-01-01] MEDS: FLUoxetine 20 MG CAPSULE PO SCH (09:41)
[2019-01-01] MEDS: Insulin LISPRO 300 UNITS/3 ML VIAL SQ SCH (09:42)
[2019-01-01] MEDS: Budesonide/Formoterol 160/4.5 1 PUFF INH IH SCH (10:13)
--- NOTE | 2019-01-01 10:17 | Discharge Summary ---
Orders not resulted at time of discharge: Pending orders 12/29/18 23:47 Culture,Blood [BC] Stat Date of Encounter: 01/01/19 Time of Encounter: 07:30 - Discharge Diagnosis (1) Acute exacerbation of CHF (congestive heart failure) Priority: Primary Status: Acute Assessment and Plan: Genesiseinnicky's alst ECHO showed an EF of 65% but had evidence of mild diastolic dysfunction he presented with SOB, weight gain and increased bipedal swelling. He also admitted that he is not fully compliant with his diuretics. His symptoms have improved on diuresis and he will be discharged home today. 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 for medical terminology insulin use: without adjunct faculty for medical terminology use Diabetes mellitus complication status: with hyperglycemia Qualified Code(s): E11.65 - Type 2 diabetes mellitus with hyperglycemia (4) Tobacco abuse Priority: Secondary Status: Chronic (5) BECK treated with BiPAP Priority: Secondary Status: Chronic (6) Atrial fibrillation Priority: Secondary Status: Chronic Qualifiers: Atrial fibrillation type: chronic Qualified Code(s): I48.2 - Chronic atrial fibrillation (7) Anasarca Priority: Secondary Status: Chronic (8) COPD with acute exacerbation Priority: Secondary Status: Acute (9) DVT prophylaxis Priority: Secondary Status: Acute Hospital course: Mr. Davila is a 63 year old male with past medical history of HFpEF, COPD, CAD, DM 2, hyperlipidemia, hypertension, PAD, CKD, Graves' disease, anxiety and depression. Patient presented with complaints of worsening shortness of breath, weight gain and worsening bipedal swelling. Patient admitted in the course of his hospital stay that he has not been fully compliant with dosing of his diuretics. His shortness of breath improved on IV diuretics and he has been counseled on how to take his medications. Patient is on hospice care for end-stage COPD and will be discharged with referral back to home hospice. Discharge discussed with: patient, case management - Time Spent with Patient Total time spent providing and/or coordinating discharge services: Time spent: Greater than 30 minutes (40) - Discharge Medications Prescriptions: Continued Omeprazole [PriLOSEC] 20 mg PO DAILY Docusate Sodium [Stool Softener] 100 mg PO BID PRN PRN Reason: Constipation Pentoxifylline [TRENtal] 400 mg PO BID Nitroglycerin [Nitrostat] 0.4 mg SL Q5M PRN PRN Reason: Chest Pain Metformin HCl [Glucophage] 1,000 mg PO BID Cyclobenzaprine [Flexeril] 10 mg PO QAM PRN PRN Reason: Muscle Spasm Budesonide/Formoterol 160/4.5 [Symbicort 160/4.5] 2 puff IH BIDR hydrOXYzine HCl [Hydroxyzine HCl] 25 mg PO Q4H PRN PRN Reason: Anxiety Gabapentin [Neurontin] 600 mg PO BID Atorvastatin [Lipitor] 40 mg PO HS FLUoxetine HCl [Prozac] 20 mg PO QAM Aspirin 81 mg PO DAILY Warfarin [Coumadin] 7.5 mg PO 1800 Levothyroxine Sodium 75 mcg PO DAILY Levothyroxine Sodium [Euthyrox] 200 mcg PO DAILY Potassium Chloride 20 meq PO BID Metoprolol Succinate [Toprol Xl] 50 mg PO DAILY OxyCODONE/APAP 10/325 [Percocet 10/325 MG] 1 - 2 tab PO Q4H PRN PRN Reason: Pain LORazepam [Ativan] 0.5 - 1 mg PO Q4H PRN PRN Reason: Anxiety Albuterol Sulfate [Proventil Inhaler] 2 puff PO Q6H PRN PRN Reason: Shortness Of Breath Atropine Sulfate in 0.9% NaCl [Atropine 0.01%-Ns Eye Drops] 2 drop PO Q2H PRN PRN Reason: Secretions predniSONE [PredniSONE] 10 mg PO DAILY Tiotropium [Spiriva] 18 mcg IH DAILY Albuterol Neb [Proventil Neb] 2.5 ng PO Q4H PRN PRN Reason: Shortness Of Breath Cyclobenzaprine HCl 10 mg PO HS PRN PRN Reason: Muscle Spasm Ipratropium/Albuterol Neb [Duoneb] 3 ml IH Q4-6H PRN PRN Reason: SOB/WHEEZE traZODone [TraZODone] 50 mg PO HS metOLazone [Zaroxolyn] 5 mg PO DAILY 30 Days #30 tablet Acetaminophen [Tylenol 650mg SUPP] 650 mg RC Q4H PRN PRN Reason: PAIN/FEVER Furosemide [Lasix] 40 mg PO BID Morphine Oral CONC [Roxanol] 10 - 20 mg PO Q4H PRN PRN Reason: Pain Ondansetron HCl 4 mg PO Q8H PRN PRN Reason: Nausea Home Medications: Docusate Sodium [Stool Softener] 100 mg PO BID PRN 08/04/16 [History] Metformin HCl [Glucophage] 1,000 mg PO BID 08/04/16 [History] Nitroglycerin [Nitrostat] 0.4 mg SL Q5M PRN 08/04/16 [History] Omeprazole [PriLOSEC] 20 mg PO DAILY 08/04/16 [History] Pentoxifylline [TRENtal] 400 mg PO BID 08/04/16 [History] Budesonide/Formoterol 160/4.5 [Symbicort 160/4.5] 2 puff IH BIDR 08/28/17 [History] Cyclobenzaprine [Flexeril] 10 mg PO QAM PRN 08/28/17 [History] hydrOXYzine HCl [Hydroxyzine HCl] 25 mg PO Q4H PRN 02/21/18 [History] Gabapentin [Neurontin] 600 mg PO BID 04/29/18 [History] Aspirin 81 mg PO DAILY 07/05/18 [History] Atorvastatin [Lipitor] 40 mg PO HS 07/05/18 [History] FLUoxetine HCl [Prozac] 20 mg PO QAM 07/05/18 [History] Levothyroxine Sodium 75 mcg PO DAILY 09/09/18 [History] Levothyroxine Sodium [Euthyrox] 200 mcg PO DAILY 09/09/18 [History] Potassium Chloride 20 meq PO BID 09/09/18 [History] Warfarin [Coumadin] 7.5 mg PO 1800 09/09/18 [History] Metoprolol Succinate [Toprol Xl] 50 mg PO DAILY 09/10/18 [History] LORazepam [Ativan] 0.5 - 1 mg PO Q4H PRN 10/20/18 [History] OxyCODONE/APAP 10/325 [Percocet 10/325 MG] 1 - 2 tab PO Q4H PRN 10/20/18 [History] Albuterol Sulfate [Proventil Inhaler] 2 puff PO Q6H PRN 10/21/18 [History] Atropine Sulfate in 0.9% NaCl [Atropine 0.01%-Ns Eye Drops] 2 drop PO Q2H PRN 10/21/18 [History] Tiotropium [Spiriva] 18 mcg IH DAILY 10/21/18 [History] predniSONE [PredniSONE] 10 mg PO DAILY 10/21/18 [History] Albuterol Neb [Proventil Neb] 2.5 ng PO Q4H PRN 11/18/18 [History] Cyclobenzaprine HCl 10 mg PO HS PRN 11/18/18 [History] Ipratropium/Albuterol Neb [Duoneb] 3 ml IH Q4-6H PRN 11/18/18 [History] traZODone [TraZODone] 50 mg PO HS 11/18/18 [History] metOLazone [Zaroxolyn] 5 mg PO DAILY 30 Days #30 tablet 11/21/18 [Rx] Acetaminophen [Tylenol 650mg SUPP] 650 mg RC Q4H PRN 12/30/18 [History] Furosemide [Lasix] 40 mg PO BID 12/30/18 [History] Morphine Oral CONC [Roxanol] 10 - 20 mg PO Q4H PRN 12/30/18 [History] Ondansetron HCl 4 mg PO Q8H PRN 12/30/18 [History] Allergies/Adverse Reactions: Allergy/AdvReac Type Severity Reaction Status Date / Time Amoxicillin [From Augmentin] Allergy See Verified 12/30/18 01:07 Comments clavulanic acid Allergy See Verified 12/30/18 01:07 [From Augmentin] Comments meperidine [From Demerol] Allergy See Verified 12/30/18 01:07 Comments sulfamethoxazole Allergy Rash Verified 12/30/18 01:07 [From Bactrim] trimethoprim [From Bactrim] Allergy Rash Verified 12/30/18 01:07 baclofen AdvReac See Verified 12/30/18 01:07 Comments Date of admission: 12/30/18 00:48 Primary care physician: Fartun Quinones CNP Consults: 12/30/18 06:27 Consult to Nurse Navigator [CONS] Routine Comment: - Constitutional Vitals: Temp Pulse Resp BP Pulse Ox 36.4 C 72 18 115/68 98 01/01/19 07:06 01/01/19 07:06 01/01/19 04:02 01/01/19 07:06 01/01/19 04:02 General appearance: Present: cooperative, A&O X 3, pleasant, no acute distress, answers questions appropriately Exam: GENERAL: Not in distress. Alert and Oriented HEENT: EOMI, PERRLA MOUTH: Moist oral mucosa NECK:No JVD, No lymph nodes. CHEST AND LUNGS: Normal breath sounds, no wheezes or crackles HEART: S1 and S2 normal, no murmurs ABDOMEN: Soft, nontender, no organomegaly SKIN: Normal color, no rahses, no lesions EXTREMITIES: +2 bipedal edema with venous stasis dermatitis bilaterally. NEUROLOGICAL: Normal cognition, normal motor and sensory exam. - Patient Status Disposition: Hospice - Home Condition: Fair Functional capacity at discharge: uses cane/walker Overall status at discharge: patient is progressing back to baseline - Discharge Instructions Follow Up With: Fartun Quinones, STILL CLEANER [Primary Care Provider] - - Diet and Activity Activity: resume usual activities as tolerated Diet: advance to your usual diet, diabetic diet
--- NOTE | 2019-01-01 10:34 | Physician Discharge Referral ---
Home Health/Hosp Referral Info Transfer to: Hospice Provider in Charge Post Discharge: Critical Care Registered Nurse - Diagnosis (1) Acute exacerbation of CHF (congestive heart failure) Priority: Primary Status: Acute (2) Shortness of breath Priority: Secondary Status: Acute (3) Diabetes mellitus Priority: Secondary Status: Chronic (4) Tobacco abuse Priority: Secondary Status: Chronic (5) BECK treated with BiPAP Priority: Secondary Status: Chronic (6) Atrial fibrillation Priority: Secondary Status: Chronic (7) Anasarca Priority: Secondary Status: Chronic (8) COPD with acute exacerbation Priority: Secondary Status: Acute (9) DVT prophylaxis Priority: Secondary Status: Acute - Respiratory Orders Smoking Cessation: Smoking cessation has been advised. For more information, call the [employer] Quit Line at [phone]-NOW. - Transfer Medications Home Medications: Docusate Sodium [Stool Softener] 100 mg PO BID PRN 08/04/16 [History] Metformin HCl [Glucophage] 1,000 mg PO BID 08/04/16 [History] Nitroglycerin [Nitrostat] 0.4 mg SL Q5M PRN 08/04/16 [History] Omeprazole [PriLOSEC] 20 mg PO DAILY 08/04/16 [History] Pentoxifylline [TRENtal] 400 mg PO BID 08/04/16 [History] Budesonide/Formoterol 160/4.5 [Symbicort 160/4.5] 2 puff IH BIDR 08/28/17 [History] Cyclobenzaprine [Flexeril] 10 mg PO QAM PRN 08/28/17 [History] hydrOXYzine HCl [Hydroxyzine HCl] 25 mg PO Q4H PRN 02/21/18 [History] Gabapentin [Neurontin] 600 mg PO BID 04/29/18 [History] Aspirin 81 mg PO DAILY 07/05/18 [History] Atorvastatin [Lipitor] 40 mg PO HS 07/05/18 [History] FLUoxetine HCl [Prozac] 20 mg PO QAM 07/05/18 [History] Levothyroxine Sodium 75 mcg PO DAILY 09/09/18 [History] Levothyroxine Sodium [Euthyrox] 200 mcg PO DAILY 09/09/18 [History] Potassium Chloride 20 meq PO BID 09/09/18 [History] Warfarin [Coumadin] 7.5 mg PO 1800 09/09/18 [History] Metoprolol Succinate [Toprol Xl] 50 mg PO DAILY 09/10/18 [History] LORazepam [Ativan] 0.5 - 1 mg PO Q4H PRN 10/20/18 [History] OxyCODONE/APAP 10/325 [Percocet 10/325 MG] 1 - 2 tab PO Q4H PRN 10/20/18 [History] Albuterol Sulfate [Proventil Inhaler] 2 puff PO Q6H PRN 10/21/18 [History] Atropine Sulfate in 0.9% NaCl [Atropine 0.01%-Ns Eye Drops] 2 drop PO Q2H PRN 10/21/18 [History] Tiotropium [Spiriva] 18 mcg IH DAILY 10/21/18 [History] predniSONE [PredniSONE] 10 mg PO DAILY 10/21/18 [History] Albuterol Neb [Proventil Neb] 2.5 ng PO Q4H PRN 11/18/18 [History] Cyclobenzaprine HCl 10 mg PO HS PRN 11/18/18 [History] Ipratropium/Albuterol Neb [Duoneb] 3 ml IH Q4-6H PRN 11/18/18 [History] traZODone [TraZODone] 50 mg PO HS 11/18/18 [History] metOLazone [Zaroxolyn] 5 mg PO DAILY 30 Days #30 tablet 11/21/18 [Rx] Acetaminophen [Tylenol 650mg SUPP] 650 mg RC Q4H PRN 12/30/18 [History] Furosemide [Lasix] 40 mg PO BID 12/30/18 [History] Morphine Oral CONC [Roxanol] 10 - 20 mg PO Q4H PRN 12/30/18 [History] Ondansetron HCl 4 mg PO Q8H PRN 12/30/18 [History] Allergies/Adverse Reactions: Allergy/AdvReac Type Severity Reaction Status Date / Time Amoxicillin [From Augmentin] Allergy See Verified 12/30/18 01:07 Comments clavulanic acid Allergy See Verified 12/30/18 01:07 [From Augmentin] Comments meperidine [From Demerol] Allergy See Verified 12/30/18 01:07 Comments sulfamethoxazole Allergy Rash Verified 12/30/18 01:07 [From Bactrim] trimethoprim [From Bactrim] Allergy Rash Verified 12/30/18 01:07 baclofen AdvReac See Verified 12/30/18 01:07 Comments Certification: Further, I certify that my clinical findings support that this patient is homebound (i.e. absences from home require considerable and taxing effort and are for medical reasons or mandaen services or infrequently or short duration when for other reasons) because: Homebound Reason: Severity of cardiac or pulmonary status limits activity tolerance Attestation: My signature below is to certify that this patient is under my care and that I, or nurse practitioner, or a physician's registered dental assistant working with me, has a [id number] encounter with this patient.
[2019-01-01] MEDS ORDERED: *HR* Warfarin 7.5 MG TABLET PO ONE (18:00)
--- NOTE | 2019-01-04 10:06 | Electrocardiograph Report ---
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
== END 2019-01-01 12:24 | disposition hospice, home (50) ==
LOC: 2ANU 20:36 → EMEROOARM 20:36 → SUATTDRO 12-30 00:48 → 2ANU 12-30 01:49
PROVIDERS: ADMIT Family Medicine; ATTEND Internal Medicine

== ENCOUNTER 2019-03-20 14:36 | Inpatient (IN) ==
[2019-03-20] MEDS ORDERED: methylPREDNISolone 125 MG/2 ML VIAL IVP ONE (14:48)
[2019-03-20] MEDS ORDERED: Ipratropium/Albuterol Neb 3 ML IH ONE (14:48)
[2019-03-20 15:28] LABS: Basophils # 0.1 K/mcL (0.0-0.2); Basophils % 0.5 %; Eosinophils # 0.1 K/mcL (0.0-0.6); Eosinophils % 0.5 %; Hemoglobin 13.8 g/dL (12.9-16.9); Immature Granulocytes % 0.5 % (0-4); Lymphocytes # 1.9 K/mcL (0.6-4.6); Lymphocytes % 13.4 %; Mean Corpuscular HGB Conc 32.9 g/dL (31.6-35.5); Mean Corpuscular Hemoglobin 28.3 pg (28.0-33.3); Mean Corpuscular Volume 86.2 fL (83.0-100.0); Mean Platelet Volume 10.8 fL (9.4-12.4); Monocytes # 1.1 K/mcL (0.0-1.3); Neutrophils # 10.8 K/mcL (1.6-8.9); Platelet Count 232 K/mcL (140-400); Red Blood Count 4.87 M/mcL (4.19-5.50); Red Cell Distribution Width 14.5 % (11.5-14.5); Segmented Neutrophils % 77.1 %; White Blood Count 13.9 K/mcL (4.3-11.1)
[2019-03-20 15:32] LABS: VBG HCO3 26 mEq/L (21-27); VBG PCO2 30 mmHg (41-51); VBG PH 7.54 pH Units (7.32-7.42); VBG PO2 149 mmHg (25-50)
[2019-03-20 15:33] LABS: INR 1.7; Prothrombin Time 19.2 Seconds (9.4-12.1)
[2019-03-20 15:52] LABS: BUN/Creatinine Ratio 21 (6-26); Blood Urea Nitrogen 24 mg/dL (8-23); Calcium 8.9 mg/dL (8.6-10.3); Carbon Dioxide 27 mEq/L (23-29); Chloride 94 mEq/L (98-107); Glucose 175 mg/dL (70-105); Osmolality,Calculated 286 (280-300); Potassium 2.7 mEq/L (3.5-5.1); Sodium 134 mEq/L (136-145); Troponin I < 0.03 ng/mL (< 0.04); eGFR For African Americans > 60 (> 60); eGFR For Non-African Americans > 60 (> 60)
[2019-03-20] MEDS ORDERED: Potassium Chloride Elixir 20 MEQ/15 ML UDC PO ONE (15:58)
[2019-03-20] MEDS ORDERED: Naloxone 0.4 MG/ML INJ IVP PRN (17:15)
[2019-03-20] MEDS ORDERED: Ondansetron 4 MG/2 ML VIAL IVP PRN (17:15)
[2019-03-20] MEDS ORDERED: Ondansetron ODT 4 MG TAB.RAPDIS SL PRN (17:15)
[2019-03-20] MEDS ORDERED: Morphine Sulfate 2 MG/ML SYRINGE IVP ONE (17:34)
[2019-03-20] MEDS ORDERED: Dextrose Gel 15 GM/37.5 ML TUBE PO PRN (17:52)
[2019-03-20] MEDS ORDERED: Warfarin perPT PO PRN (18:00)
[2019-03-20 18:29] LABS: Magnesium 1.6 mg/dL (1.6-2.6)
[2019-03-20] MEDS ORDERED: cefTRIAXone 2,000 MG in Water for inj. (sterile) 20 ML IVP SCH (19:00)
[2019-03-20] MEDS ORDERED: Ringers Solution, Lactated 500 ML IVC ONE (19:00)
[2019-03-20] MEDS: methylPREDNISolone 125 MG/2 ML VIAL IVP SCH ×2 (20:18→23:51)
[2019-03-20] MEDS: Azithromycin 500 MG in 0.9 % Sodium Chloride 250 ML IVPB SCH (20:19)
[2019-03-20] MEDS: Insulin LISPRO 300 UNITS/3 ML VIAL SQ SCH (20:19)
[2019-03-20] MEDS: Ipratropium/Albuterol Neb 3 ML IH SCH (20:37)
[2019-03-20] MEDS ORDERED: Morphine Sulfate 2 MG/ML SYRINGE IVP PRN (20:56)
[2019-03-21] MEDS: Ipratropium/Albuterol Neb 3 ML IH SCH ×7 (00:12→23:03)
[2019-03-21 00:59] LABS: Basophils % 0.1 %; Hematocrit 39.1 % (37.5-50.1); Hemoglobin 12.6 g/dL (12.9-16.9); Immature Granulocytes % 0.8 % (0-4); Lymphocytes # 1.3 K/mcL (0.6-4.6); Lymphocytes % 17.1 %; Mean Corpuscular HGB Conc 32.2 g/dL (31.6-35.5); Mean Corpuscular Hemoglobin 28.1 pg (28.0-33.3); Mean Corpuscular Volume 87.3 fL (83.0-100.0); Mean Platelet Volume 10.9 fL (9.4-12.4); Monocytes # 0.2 K/mcL (0.0-1.3); Monocytes % 2.7 %; Neutrophils # 6.1 K/mcL (1.6-8.9); Platelet Count 203 K/mcL (140-400); Red Blood Count 4.48 M/mcL (4.19-5.50); Red Cell Distribution Width 14.5 % (11.5-14.5); Segmented Neutrophils % 79.3 %; White Blood Count 7.7 K/mcL (4.3-11.1)
[2019-03-21 01:02] LABS: INR 1.6; Prothrombin Time 18.5 Seconds (9.4-12.1)
[2019-03-21 01:30] LABS: BUN/Creatinine Ratio 22 (6-26); Blood Urea Nitrogen 27 mg/dL (8-23); Calcium 8.8 mg/dL (8.6-10.3); Carbon Dioxide 24 mEq/L (23-29); Chloride 96 mEq/L (98-107); Glucose 229 mg/dL (70-105); Osmolality,Calculated 290 (280-300); Potassium 3.5 mEq/L (3.5-5.1); Sodium 134 mEq/L (136-145); eGFR For African Americans > 60 (> 60); eGFR For Non-African Americans 58 (> 60)
[2019-03-21] MEDS: methylPREDNISolone 125 MG/2 ML VIAL IVP SCH ×4 (05:41→23:19)
[2019-03-21 07:06] LABS: Adenovirus Not Detected (Not Detect); Bordetella Pertussis Not Detected (Not Detect); Chlamydophila pneumoniae Not Detected (Not Detect); Coronavirus 229E Not Detected (Not Detect); Coronavirus HKU1 Not Detected (Not Detect); Coronavirus NL63 Not Detected (Not Detect); Coronavirus OC43 Not Detected (Not Detect); Human Metapneumovirus Not Detected (Not Detect); Human Rhinovirus/Enterovirus Not Detected (Not Detect); Influenza A Subtype 2009 H1 Not Detected (Not Detect); Influenza A Untypeable Not Detected (Not Detect); Influenza B Not Detected (Not Detect); Mycoplasma pneumoniae Not Detected (Not Detect); Parainfluenza Virus 1 Not Detected (Not Detect); Parainfluenza Virus 2 Not Detected (Not Detect); Parainfluenza Virus 3 Not Detected (Not Detect); Parainfluenza Virus 4 Not Detected (Not Detect); Respiratory Syncytial Virus Not Detected (Not Detect)
[2019-03-21] MEDS: Insulin LISPRO 300 UNITS/3 ML VIAL SQ SCH ×4 (08:47→22:34)
[2019-03-21] MEDS ORDERED: *HR* LORazepam 0.5 MG TABLET PO PRN (12:31)
[2019-03-21] MEDS: Furosemide 40 MG TABLET PO SCH (16:38)
[2019-03-21] MEDS: Loratadine/Pseudophed (12 HR) 1 EACH TABLET PO SCH ×2 (16:38→22:34)
[2019-03-21] MEDS: *HR* Heparin 5,000 UNIT/ML VIAL SQ SCH (16:39)
[2019-03-21] MEDS: Fluticasone Propionate Nasal 50 MCG/SPRAY BOTTLE NS SCH (16:39)
[2019-03-21] MEDS: Azithromycin 500 MG in 0.9 % Sodium Chloride 250 ML IVPB SCH (16:39)
[2019-03-21] MEDS ORDERED: *HR* Warfarin 7.5 MG TABLET PO ONE (18:00)
[2019-03-21] MEDS ORDERED: Insulin DETEMIR 100 UNIT/ML X5UNITS SQ SCH (21:00)
[2019-03-21] MEDS: Gabapentin 300 MG CAPSULE PO SCH (22:34)
[2019-03-22] MEDS: Ipratropium/Albuterol Neb 3 ML IH SCH ×5 (04:58→19:57)
[2019-03-22] MEDS: methylPREDNISolone 125 MG/2 ML VIAL IVP SCH ×4 (06:39→23:03)
[2019-03-22] MEDS: *HR* Heparin 5,000 UNIT/ML VIAL SQ SCH ×2 (06:39→18:11)
[2019-03-22 07:07] LABS: INR 1.5; Prothrombin Time 17.6 Seconds (9.4-12.1)
[2019-03-22] MEDS: Loratadine/Pseudophed (12 HR) 1 EACH TABLET PO SCH ×2 (08:39→23:02)
[2019-03-22] MEDS: metOLazone 5 MG TABLET PO SCH (08:39)
[2019-03-22] MEDS: Furosemide 40 MG TABLET PO SCH ×2 (08:39→18:09)
[2019-03-22] MEDS: Aspirin 81 MG TAB.CHEW PO SCH (08:39)
[2019-03-22] MEDS: Gabapentin 300 MG CAPSULE PO SCH ×2 (08:39→23:02)
[2019-03-22] MEDS: Metoprolol XL (24 HR) Succ 50 MG TAB.ER.24H PO SCH (08:40)
[2019-03-22] MEDS: Insulin LISPRO 300 UNITS/3 ML VIAL SQ SCH ×4 (08:41→23:04)
[2019-03-22] MEDS: Fluticasone Propionate Nasal 50 MCG/SPRAY BOTTLE NS SCH (08:42)
[2019-03-22 09:40] LABS: Hematocrit 38.3 % (37.5-50.1); Hemoglobin 12.7 g/dL (12.9-16.9); Mean Corpuscular HGB Conc 33.2 g/dL (31.6-35.5); Mean Corpuscular Volume 84.4 fL (83.0-100.0); Mean Platelet Volume 10.8 fL (9.4-12.4); Platelet Count 225 K/mcL (140-400); Red Blood Count 4.54 M/mcL (4.19-5.50); Red Cell Distribution Width 14.5 % (11.5-14.5)
[2019-03-22 09:42] LABS: White Blood Count 15.7 K/mcL (4.3-11.1)
[2019-03-22 09:51] LABS: Calcium 9.1 mg/dL (8.6-10.3); Potassium 3.2 mEq/L (3.5-5.1)
[2019-03-22] MEDS ORDERED: *HR* Warfarin 10 MG TABLET PO ONE (18:00)
[2019-03-22] MEDS: Azithromycin 500 MG in 0.9 % Sodium Chloride 250 ML IVPB SCH (18:11)
[2019-03-22] MEDS ORDERED: Ondansetron ODT 4 MG TAB.RAPDIS PO PRN (21:51)
[2019-03-22] MEDS ORDERED: Albuterol 2.5 MG/3 ML NEBULIZER IH SCH (22:00)
[2019-03-22] MEDS: traZODone 50 MG TABLET PO SCH (23:02)
[2019-03-22] MEDS: hydrOXYzine pamoate 25 MG CAPSULE PO SCH (23:03)
[2019-03-22] MEDS: Insulin DETEMIR 100 UNIT/ML X5UNITS SQ SCH (23:03)
[2019-03-23] MEDS: Ipratropium/Albuterol Neb 3 ML IH SCH ×7 (00:10→23:03)
[2019-03-23] MEDS: Budesonide/Formoterol 160/4.5 1 PUFF INH IH SCH ×3 (00:10→20:22)
[2019-03-23] MEDS: *HR* Heparin 5,000 UNIT/ML VIAL SQ SCH ×2 (05:35→17:57)
[2019-03-23] MEDS: methylPREDNISolone 125 MG/2 ML VIAL IVP SCH ×3 (05:35→17:57)
[2019-03-23 06:22] LABS: INR 1.7; Prothrombin Time 19.5 Seconds (9.4-12.1)
[2019-03-23] MEDS: Insulin LISPRO 300 UNITS/3 ML VIAL SQ SCH ×4 (07:30→21:41)
[2019-03-23] MEDS ORDERED: Isosorbide MONOnitrate (24 HR) 30 MG TAB.ER.24H PO PRN (12:04)
[2019-03-23] MEDS: Furosemide 40 MG TABLET PO SCH ×2 (16:06→17:59)
[2019-03-23] MEDS: metOLazone 5 MG TABLET PO SCH (16:06)
[2019-03-23] MEDS: Loratadine/Pseudophed (12 HR) 1 EACH TABLET PO SCH ×2 (16:07→21:40)
[2019-03-23] MEDS: Fluticasone Propionate Nasal 50 MCG/SPRAY BOTTLE NS SCH (16:07)
[2019-03-23] MEDS: Metoprolol XL (24 HR) Succ 50 MG TAB.ER.24H PO SCH (16:07)
[2019-03-23] MEDS: Aspirin 81 MG TAB.CHEW PO SCH (16:07)
[2019-03-23] MEDS: Gabapentin 300 MG CAPSULE PO SCH ×2 (16:07→21:40)
[2019-03-23] MEDS: FLUoxetine 20 MG CAPSULE PO SCH (16:07)
[2019-03-23] MEDS: Azithromycin 500 MG in 0.9 % Sodium Chloride 250 ML IVPB SCH (17:56)
[2019-03-23] MEDS ORDERED: *HR* Warfarin 7.5 MG TABLET PO ONE (18:00)
[2019-03-23] MEDS ORDERED: *HR* OxyCODONE/APAP 10/325 TABLET PO ONE (21:36)
[2019-03-23] MEDS: hydrOXYzine pamoate 25 MG CAPSULE PO SCH (21:39)
[2019-03-23] MEDS: traZODone 50 MG TABLET PO SCH (21:41)
[2019-03-23] MEDS: Insulin DETEMIR 100 UNIT/ML X5UNITS SQ SCH (21:43)
[2019-03-24] MEDS: methylPREDNISolone 125 MG/2 ML VIAL IVP SCH ×2 (00:01→05:53)
[2019-03-24] MEDS: Ipratropium/Albuterol Neb 3 ML IH SCH ×4 (04:31→21:44)
[2019-03-24 05:32] LABS: Prothrombin Time 22.2 Seconds (9.4-12.1)
[2019-03-24] MEDS: *HR* Heparin 5,000 UNIT/ML VIAL SQ SCH (05:55)
[2019-03-24 09:14] LABS: Hemoglobin 11.7 g/dL (12.9-16.9); Mean Corpuscular HGB Conc 31.6 g/dL (31.6-35.5); Mean Corpuscular Hemoglobin 28.1 pg (28.0-33.3); Mean Corpuscular Volume 88.7 fL (83.0-100.0); Mean Platelet Volume 10.6 fL (9.4-12.4); Platelet Count 168 K/mcL (140-400); Red Blood Count 4.17 M/mcL (4.19-5.50); Red Cell Distribution Width 14.2 % (11.5-14.5); White Blood Count 8.6 K/mcL (4.3-11.1)
[2019-03-24 09:42] LABS: BUN/Creatinine Ratio 40 (6-26); Blood Urea Nitrogen 48 mg/dL (8-23); Calcium 8.8 mg/dL (8.6-10.3); Carbon Dioxide 30 mEq/L (23-29); Chloride 94 mEq/L (98-107); Glucose 204 mg/dL (70-105); Osmolality,Calculated 300 (280-300); Potassium 3.1 mEq/L (3.5-5.1); Sodium 136 mEq/L (136-145); eGFR For African Americans > 60 (> 60); eGFR For Non-African Americans > 60 (> 60)
[2019-03-24] MEDS: Metoprolol XL (24 HR) Succ 50 MG TAB.ER.24H PO SCH (10:06)
[2019-03-24] MEDS: Aspirin 81 MG TAB.CHEW PO SCH (10:06)
[2019-03-24] MEDS: Loratadine/Pseudophed (12 HR) 1 EACH TABLET PO SCH ×2 (10:07→20:41)
[2019-03-24] MEDS: predniSONE 20 MG TABLET PO SCH (10:07)
[2019-03-24] MEDS: Gabapentin 300 MG CAPSULE PO SCH ×2 (10:07→20:42)
[2019-03-24] MEDS: metOLazone 5 MG TABLET PO SCH (10:07)
[2019-03-24] MEDS: Furosemide 40 MG TABLET PO SCH ×2 (10:07→17:36)
[2019-03-24] MEDS: FLUoxetine 20 MG CAPSULE PO SCH (10:07)
[2019-03-24] MEDS: Insulin LISPRO 300 UNITS/3 ML VIAL SQ SCH ×5 (10:08→21:03)
[2019-03-24] MEDS: Fluticasone Propionate Nasal 50 MCG/SPRAY BOTTLE NS SCH (10:09)
[2019-03-24] MEDS: Budesonide/Formoterol 160/4.5 1 PUFF INH IH SCH ×2 (10:52→21:44)
[2019-03-24] MEDS: Azithromycin 500 MG in 0.9 % Sodium Chloride 250 ML IVPB SCH (17:36)
[2019-03-24] MEDS ORDERED: *HR* Warfarin 7.5 MG TABLET PO ONE (18:00)
[2019-03-24] MEDS: traZODone 50 MG TABLET PO SCH (20:41)
[2019-03-24] MEDS: hydrOXYzine pamoate 25 MG CAPSULE PO SCH (20:41)
[2019-03-24] MEDS: Insulin DETEMIR 100 UNIT/ML X5UNITS SQ SCH (20:42)
[2019-03-24] MEDS: *HR* OxyCODONE/APAP 10/325 TABLET PO PRN (21:00)
[2019-03-25] MEDS: Ipratropium/Albuterol Neb 3 ML IH SCH ×4 (03:50→22:30)
[2019-03-25 07:31] LABS: INR 2.7
[2019-03-25 07:42] LABS: BUN/Creatinine Ratio 42 (6-26); Blood Urea Nitrogen 45 mg/dL (8-23); Calcium 8.8 mg/dL (8.6-10.3); Carbon Dioxide 32 mEq/L (23-29); Chloride 94 mEq/L (98-107); Glucose 170 mg/dL (70-105); Osmolality,Calculated 300 (280-300); Potassium 3.2 mEq/L (3.5-5.1); Sodium 137 mEq/L (136-145); eGFR For African Americans > 60 (> 60); eGFR For Non-African Americans > 60 (> 60)
[2019-03-25] MEDS: Budesonide/Formoterol 160/4.5 1 PUFF INH IH SCH ×2 (10:15→22:31)
[2019-03-25] MEDS: Aspirin 81 MG TAB.CHEW PO SCH (14:08)
[2019-03-25] MEDS: Insulin LISPRO 300 UNITS/3 ML VIAL SQ SCH ×4 (14:08→20:18)
[2019-03-25] MEDS: Furosemide 40 MG TABLET PO SCH ×2 (14:08→17:06)
[2019-03-25] MEDS: metOLazone 5 MG TABLET PO SCH (14:08)
[2019-03-25] MEDS: FLUoxetine 20 MG CAPSULE PO SCH (14:09)
[2019-03-25] MEDS: Fluticasone Propionate Nasal 50 MCG/SPRAY BOTTLE NS SCH (14:09)
[2019-03-25] MEDS: Loratadine/Pseudophed (12 HR) 1 EACH TABLET PO SCH ×3 (14:09→20:50)
[2019-03-25] MEDS: Metoprolol XL (24 HR) Succ 50 MG TAB.ER.24H PO SCH (14:09)
[2019-03-25] MEDS: predniSONE 20 MG TABLET PO SCH (14:09)
[2019-03-25] MEDS: Gabapentin 300 MG CAPSULE PO SCH ×3 (14:09→20:50)
[2019-03-25] MEDS ORDERED: *HR* Warfarin 3 MG TABLET PO ONE (18:00)
[2019-03-25] MEDS: Insulin DETEMIR 100 UNIT/ML X5UNITS SQ SCH (20:18)
[2019-03-25] MEDS: traZODone 50 MG TABLET PO SCH ×2 (20:28→20:50)
[2019-03-25] MEDS: hydrOXYzine pamoate 25 MG CAPSULE PO SCH ×2 (20:28→20:50)
[2019-03-25] MEDS: *HR* OxyCODONE/APAP 10/325 TABLET PO PRN (20:28)
[2019-03-26] MEDS: Ipratropium/Albuterol Neb 3 ML IH SCH ×5 (03:55→22:11)
[2019-03-26 04:41] LABS: INR 2.5
[2019-03-26 05:00] LABS: BUN/Creatinine Ratio 32 (6-26); Blood Urea Nitrogen 34 mg/dL (8-23); Carbon Dioxide 27 mEq/L (23-29); Chloride 94 mEq/L (98-107); Glucose 125 mg/dL (70-105); Osmolality,Calculated 289 (280-300); Potassium 2.9 mEq/L (3.5-5.1); Sodium 135 mEq/L (136-145); eGFR For African Americans > 60 (> 60); eGFR For Non-African Americans > 60 (> 60)
[2019-03-26 06:01] LABS: Magnesium 1.6 mg/dL (1.6-2.6)
[2019-03-26] MEDS: Furosemide 40 MG TABLET PO SCH ×2 (07:33→18:16)
[2019-03-26] MEDS: metOLazone 5 MG TABLET PO SCH (07:33)
[2019-03-26] MEDS: Insulin LISPRO 300 UNITS/3 ML VIAL SQ SCH ×4 (07:37→21:30)
[2019-03-26] MEDS: Gabapentin 300 MG CAPSULE PO SCH ×2 (07:54→21:31)
[2019-03-26] MEDS: predniSONE 20 MG TABLET PO SCH (07:54)
[2019-03-26] MEDS: FLUoxetine 20 MG CAPSULE PO SCH (07:55)
[2019-03-26] MEDS: Loratadine/Pseudophed (12 HR) 1 EACH TABLET PO SCH ×2 (07:56→21:30)
[2019-03-26] MEDS: Aspirin 81 MG TAB.CHEW PO SCH (07:57)
[2019-03-26] MEDS: *HR* OxyCODONE/APAP 10/325 TABLET PO PRN (08:18)
[2019-03-26] MEDS: Metoprolol XL (24 HR) Succ 50 MG TAB.ER.24H PO SCH (08:18)
[2019-03-26] MEDS: Budesonide/Formoterol 160/4.5 1 PUFF INH IH SCH ×3 (10:56→22:11)
[2019-03-26] MEDS: Fluticasone Propionate Nasal 50 MCG/SPRAY BOTTLE NS SCH (11:36)
[2019-03-26] MEDS ORDERED: 0.9 % Sodium Chloride 500 ML ONE (12:52)
[2019-03-26] MEDS ORDERED: 0.9 % Sodium Chloride 500 ML IVC SCH (13:00)
[2019-03-26] MEDS ORDERED: *HR* Warfarin 7.5 MG TABLET PO ONE (18:00)
[2019-03-26] MEDS: Insulin DETEMIR 100 UNIT/ML X5UNITS SQ SCH (21:30)
[2019-03-26] MEDS: hydrOXYzine pamoate 25 MG CAPSULE PO SCH (21:31)
[2019-03-26] MEDS: traZODone 50 MG TABLET PO SCH (21:31)
[2019-03-27] MEDS: Ipratropium/Albuterol Neb 3 ML IH SCH ×2 (03:51→10:30)
[2019-03-27 06:47] LABS: Hematocrit 38.9 % (37.5-50.1); Hemoglobin 12.7 g/dL (12.9-16.9); Mean Corpuscular HGB Conc 32.6 g/dL (31.6-35.5); Mean Corpuscular Volume 85.9 fL (83.0-100.0); Mean Platelet Volume 10.5 fL (9.4-12.4); Platelet Count 169 K/mcL (140-400); Red Blood Count 4.53 M/mcL (4.19-5.50); Red Cell Distribution Width 14.4 % (11.5-14.5); White Blood Count 12.7 K/mcL (4.3-11.1)
[2019-03-27 06:53] LABS: INR 2.2; Prothrombin Time 25.1 Seconds (9.4-12.1)
[2019-03-27 07:06] LABS: BUN/Creatinine Ratio 42 (6-26); Blood Urea Nitrogen 44 mg/dL (8-23); Calcium 8.7 mg/dL (8.6-10.3); Carbon Dioxide 30 mEq/L (23-29); Chloride 96 mEq/L (98-107); Glucose 148 mg/dL (70-105); Osmolality,Calculated 294 (280-300); Potassium 3.2 mEq/L (3.5-5.1); Sodium 135 mEq/L (136-145); eGFR For African Americans > 60 (> 60); eGFR For Non-African Americans > 60 (> 60)
[2019-03-27 07:22] VITALS: BP 104/60
[2019-03-27] MEDS: Insulin LISPRO 300 UNITS/3 ML VIAL SQ SCH (07:48)
[2019-03-27] MEDS: FLUoxetine 20 MG CAPSULE PO SCH (10:17)
[2019-03-27] MEDS: Furosemide 40 MG TABLET PO SCH (10:17)
[2019-03-27] MEDS: Metoprolol XL (24 HR) Succ 50 MG TAB.ER.24H PO SCH (10:17)
[2019-03-27] MEDS: Gabapentin 300 MG CAPSULE PO SCH (10:17)
[2019-03-27] MEDS: Aspirin 81 MG TAB.CHEW PO SCH (10:18)
[2019-03-27] MEDS: Loratadine/Pseudophed (12 HR) 1 EACH TABLET PO SCH (10:18)
[2019-03-27] MEDS: Fluticasone Propionate Nasal 50 MCG/SPRAY BOTTLE NS SCH (10:19)
[2019-03-27] MEDS: predniSONE 20 MG TABLET PO SCH (10:24)
[2019-03-27] MEDS: Budesonide/Formoterol 160/4.5 1 PUFF INH IH SCH (10:30)
== END 2019-03-27 12:47 | disposition hospice, home (50) | DRG 191 ==
LOC: 3BNU 14:36 → EMEROOARM 14:36 → SUATTDRO 17:19 → 3BNU 18:05
PROVIDERS: ADMIT Family Medicine; ATTEND Internal Medicine

== ENCOUNTER 2019-04-10 12:45 | Inpatient (IN) ==
[2019-04-10 14:20] LABS: INR 1.7; Prothrombin Time 19.2 Seconds (9.4-12.1)
[2019-04-10 14:26] LABS: Basophils % 0.2 %; Eosinophils # 0.1 K/mcL (0.0-0.6); Eosinophils % 0.4 %; Hematocrit 39.5 % (37.5-50.1); Hemoglobin 12.5 g/dL (12.9-16.9); Immature Granulocytes % 0.6 % (0-4); Immature Platelets 4.6 % (1.1-6.1); Lymphocytes # 1.4 K/mcL (0.6-4.6); Lymphocytes % 11.8 %; Mean Corpuscular HGB Conc 31.6 g/dL (31.6-35.5); Mean Corpuscular Hemoglobin 28.4 pg (28.0-33.3); Mean Corpuscular Volume 89.8 fL (83.0-100.0); Mean Platelet Volume 10.1 fL (9.4-12.4); Monocytes # 0.7 K/mcL (0.0-1.3); Monocytes % 6.2 %; Neutrophils # 9.3 K/mcL (1.6-8.9); Platelet Count 167 K/mcL (140-400); Red Cell Distribution Width 16.1 % (11.5-14.5); Segmented Neutrophils % 80.8 %; White Blood Count 11.5 K/mcL (4.3-11.1)
[2019-04-10 14:45] LABS: BUN/Creatinine Ratio 27 (6-26); Blood Urea Nitrogen 26 mg/dL (8-23); Calcium 8.8 mg/dL (8.6-10.3); Carbon Dioxide 23 mEq/L (23-29); Chloride 105 mEq/L (98-107); Glucose 202 mg/dL (70-105); Magnesium 1.6 mg/dL (1.6-2.6); Osmolality,Calculated 297 (280-300); Potassium 4.2 mEq/L (3.5-5.1); Sodium 138 mEq/L (136-145); eGFR For African Americans > 60 (> 60); eGFR For Non-African Americans > 60 (> 60)
[2019-04-10 14:46] LABS: Troponin I < 0.03 ng/mL (< 0.04)
[2019-04-10] MEDS ORDERED: Furosemide 40 MG/4 ML VIAL IVP ONE ×2 (15:10→16:55)
[2019-04-10] MEDS ORDERED: Acetaminophen 325 MG TABLET PO PRN (16:57)
[2019-04-10] MEDS ORDERED: Naloxone 0.4 MG/ML INJ IVP PRN (16:57)
[2019-04-10] MEDS ORDERED: Ondansetron 4 MG/2 ML VIAL IVP PRN (16:57)
[2019-04-10] MEDS ORDERED: Atropine Sulfate 1% 40 DROP/2 ML BOTTLE BOTH EYES PRN (17:00)
[2019-04-10] MEDS ORDERED: Morphine Sulfate Oral CONC 10 MG/0.5 ML ORAL.SYG PO PRN (17:00)
[2019-04-10] MEDS ORDERED: Isosorbide MONOnitrate (24 HR) 30 MG TAB.ER.24H PO PRN (17:00)
[2019-04-10] MEDS: Albuterol 2.5 MG/3 ML NEBULIZER IH PRN (20:07)
[2019-04-10] MEDS: Budesonide/Formoterol 160/4.5 1 PUFF INH IH SCH (20:07)
[2019-04-10] MEDS: Metoprolol XL (24 HR) Succ 50 MG TAB.ER.24H PO SCH (22:49)
[2019-04-10] MEDS: Gabapentin 300 MG CAPSULE PO SCH (22:49)
[2019-04-10] MEDS: traZODone 50 MG TABLET PO SCH (22:50)
[2019-04-10] MEDS: *HR* LORazepam 0.5 MG TABLET PO PRN (23:50)
[2019-04-10] MEDS: *HR* OxyCODONE/APAP 10/325 TABLET PO PRN (23:50)
[2019-04-11 04:14] LABS: Hematocrit 37.2 % (37.5-50.1); Hemoglobin 11.3 g/dL (12.9-16.9); Mean Corpuscular HGB Conc 30.4 g/dL (31.6-35.5); Mean Corpuscular Hemoglobin 28.3 pg (28.0-33.3); Mean Platelet Volume 10.2 fL (9.4-12.4); Platelet Count 136 K/mcL (140-400); Red Cell Distribution Width 16.1 % (11.5-14.5); White Blood Count 8.7 K/mcL (4.3-11.1)
[2019-04-11 04:35] LABS: Alanine Aminotransferase 12 Units/L (7-52); Albumin 3.3 g/dL (3.5-5.7); Albumin/Globulin Ratio 1.4 (1.1-2.2); Alkaline Phosphatase 37 Units/L (34-104); Aspartate Amino Transferase 11 Units/L (13-39); BUN/Creatinine Ratio 29 (6-26); Bilirubin,Direct 0.1 mg/dL (0.0-0.2); Bilirubin,Indirect 0.2 mg/dL (0.0-1.0); Bilirubin,Total 0.3 mg/dL (0.3-1.0); Blood Urea Nitrogen 28 mg/dL (8-23); Calcium 8.5 mg/dL (8.6-10.3); Carbon Dioxide 29 mEq/L (23-29); Chloride 102 mEq/L (98-107); Globulin 2.4 g/dL (2.4-3.5); Glucose 107 mg/dL (70-105); Magnesium 1.7 mg/dL (1.6-2.6); Osmolality,Calculated 292 (280-300); Sodium 138 mEq/L (136-145); Total Protein 5.7 g/dL (6.4-8.9); eGFR For African Americans > 60 (> 60); eGFR For Non-African Americans > 60 (> 60)
[2019-04-11] MEDS: Albuterol 2.5 MG/3 ML NEBULIZER IH PRN ×3 (07:59→20:46)
[2019-04-11] MEDS: Budesonide/Formoterol 160/4.5 1 PUFF INH IH SCH ×2 (07:59→20:46)
[2019-04-11] MEDS: Furosemide 40 MG/4 ML VIAL IVP SCH ×2 (08:12→16:46)
[2019-04-11] MEDS: Gabapentin 300 MG CAPSULE PO SCH ×2 (08:12→22:37)
[2019-04-11] MEDS: *HR* Warfarin 7.5 MG TABLET PO SCH (08:13)
[2019-04-11] MEDS: Metoprolol XL (24 HR) Succ 50 MG TAB.ER.24H PO SCH ×2 (08:13→22:37)
[2019-04-11] MEDS: FLUoxetine 20 MG CAPSULE PO SCH (08:13)
[2019-04-11] MEDS: Aspirin Enteric Coated 81 MG Tablet PO SCH (08:13)
[2019-04-11] MEDS: *HR* LORazepam 0.5 MG TABLET PO PRN ×2 (08:21→22:36)
[2019-04-11] MEDS: *HR* OxyCODONE/APAP 10/325 TABLET PO PRN (22:36)
[2019-04-11] MEDS: traZODone 50 MG TABLET PO SCH (22:36)
[2019-04-12 05:40] LABS: Prothrombin Time 22.6 Seconds (9.4-12.1)
[2019-04-12 05:41] LABS: Hemoglobin 12.1 g/dL (12.9-16.9); Mean Corpuscular HGB Conc 31.8 g/dL (31.6-35.5); Mean Corpuscular Hemoglobin 28.5 pg (28.0-33.3); Mean Corpuscular Volume 89.6 fL (83.0-100.0); Mean Platelet Volume 9.9 fL (9.4-12.4); Platelet Count 149 K/mcL (140-400); Red Blood Count 4.24 M/mcL (4.19-5.50); Red Cell Distribution Width 16.3 % (11.5-14.5); White Blood Count 8.6 K/mcL (4.3-11.1)
[2019-04-12 05:55] LABS: BUN/Creatinine Ratio 32 (6-26); Blood Urea Nitrogen 32 mg/dL (8-23); Calcium 8.6 mg/dL (8.6-10.3); Carbon Dioxide 32 mEq/L (23-29); Chloride 99 mEq/L (98-107); Glucose 114 mg/dL (70-105); Osmolality,Calculated 298 (280-300); Potassium 4.2 mEq/L (3.5-5.1); Sodium 140 mEq/L (136-145); eGFR For African Americans > 60 (> 60); eGFR For Non-African Americans > 60 (> 60)
[2019-04-12] MEDS: Furosemide 40 MG/4 ML VIAL IVP SCH ×2 (07:57→17:09)
[2019-04-12] MEDS: *HR* Warfarin 7.5 MG TABLET PO SCH (08:00)
[2019-04-12] MEDS: Aspirin Enteric Coated 81 MG Tablet PO SCH (08:00)
[2019-04-12] MEDS: Gabapentin 300 MG CAPSULE PO SCH ×2 (08:01→20:41)
[2019-04-12] MEDS: FLUoxetine 20 MG CAPSULE PO SCH (08:01)
[2019-04-12] MEDS: Metoprolol XL (24 HR) Succ 50 MG TAB.ER.24H PO SCH ×2 (08:03→20:41)
[2019-04-12] MEDS ORDERED: Atropine Sulfate 1% 40 DROP/2 ML BOTTLE SL PRN (09:15)
[2019-04-12] MEDS ORDERED: Dextrose Gel 15 GM/37.5 ML TUBE PO PRN ×2 (09:25)
[2019-04-12] MEDS ORDERED: D5% in Water 1,000 ML IVC PRN (09:25)
[2019-04-12] MEDS ORDERED: *HR* Dextrose 50 % in Water (Syg) 50 ML SYRINGE IVP PRN (09:25)
[2019-04-12] MEDS: Budesonide/Formoterol 160/4.5 1 PUFF INH IH SCH ×2 (11:27→21:11)
[2019-04-12] MEDS: Insulin LISPRO 300 UNITS/3 ML VIAL SQ SCH ×3 (11:38→20:44)
[2019-04-12] MEDS: *HR* OxyCODONE/APAP 10/325 TABLET PO PRN (12:53)
[2019-04-12] MEDS: *HR* LORazepam 0.5 MG TABLET PO PRN ×2 (12:55→22:26)
[2019-04-12] MEDS ORDERED: Warfarin perPT PO PRN (18:00)
[2019-04-12] MEDS: traZODone 50 MG TABLET PO SCH (20:42)
[2019-04-13] MEDS: *HR* OxyCODONE/APAP 10/325 TABLET PO PRN ×2 (05:39→16:36)
[2019-04-13 06:32] LABS: INR 1.9; Prothrombin Time 21.8 Seconds (9.4-12.1)
[2019-04-13 06:52] LABS: BUN/Creatinine Ratio 39 (6-26); Blood Urea Nitrogen 38 mg/dL (8-23); Calcium 8.4 mg/dL (8.6-10.3); Carbon Dioxide 27 mEq/L (23-29); Chloride 101 mEq/L (98-107); Glucose 119 mg/dL (70-105); Osmolality,Calculated 306 (280-300); Sodium 143 mEq/L (136-145); eGFR For African Americans > 60 (> 60); eGFR For Non-African Americans > 60 (> 60)
[2019-04-13] MEDS: Budesonide/Formoterol 160/4.5 1 PUFF INH IH SCH ×2 (07:36→20:08)
[2019-04-13] MEDS: Albuterol 2.5 MG/3 ML NEBULIZER IH PRN ×2 (07:37→20:08)
[2019-04-13] MEDS: Insulin LISPRO 300 UNITS/3 ML VIAL SQ SCH ×4 (07:58→22:08)
[2019-04-13] MEDS: Furosemide 40 MG/4 ML VIAL IVP SCH ×2 (07:59→16:35)
[2019-04-13] MEDS: Metoprolol XL (24 HR) Succ 50 MG TAB.ER.24H PO SCH ×2 (08:00→22:19)
[2019-04-13] MEDS: Gabapentin 300 MG CAPSULE PO SCH ×2 (08:02→22:18)
[2019-04-13] MEDS: Aspirin Enteric Coated 81 MG Tablet PO SCH (08:02)
[2019-04-13] MEDS: FLUoxetine 20 MG CAPSULE PO SCH (08:03)
[2019-04-13] MEDS: *HR* LORazepam 0.5 MG TABLET PO PRN ×3 (08:11→22:19)
[2019-04-13] MEDS ORDERED: *HR* Warfarin 7.5 MG TABLET PO SCH (18:00)
[2019-04-13] MEDS: traZODone 50 MG TABLET PO SCH (22:18)
[2019-04-14 06:05] LABS: INR 1.7; Prothrombin Time 19.5 Seconds (9.4-12.1)
[2019-04-14 06:22] LABS: BUN/Creatinine Ratio 32 (6-26); Blood Urea Nitrogen 36 mg/dL (8-23); Calcium 8.9 mg/dL (8.6-10.3); Carbon Dioxide 32 mEq/L (23-29); Chloride 98 mEq/L (98-107); Glucose 124 mg/dL (70-105); Osmolality,Calculated 298 (280-300); Sodium 139 mEq/L (136-145); eGFR For African Americans > 60 (> 60); eGFR For Non-African Americans > 60 (> 60)
[2019-04-14] MEDS: *HR* OxyCODONE/APAP 10/325 TABLET PO PRN (06:37)
[2019-04-14] MEDS: Insulin LISPRO 300 UNITS/3 ML VIAL SQ SCH ×4 (08:00→23:13)
[2019-04-14] MEDS: Budesonide/Formoterol 160/4.5 1 PUFF INH IH SCH ×2 (08:04→20:04)
[2019-04-14] MEDS: Albuterol 2.5 MG/3 ML NEBULIZER IH PRN ×2 (08:04→20:05)
[2019-04-14] MEDS: Furosemide 40 MG/4 ML VIAL IVP SCH ×3 (09:54→23:12)
[2019-04-14] MEDS: Gabapentin 300 MG CAPSULE PO SCH ×2 (09:54→23:12)
[2019-04-14] MEDS: FLUoxetine 20 MG CAPSULE PO SCH (09:54)
[2019-04-14] MEDS: Metoprolol XL (24 HR) Succ 50 MG TAB.ER.24H PO SCH ×2 (09:54→23:12)
[2019-04-14] MEDS: Aspirin Enteric Coated 81 MG Tablet PO SCH (09:54)
[2019-04-14] MEDS ORDERED: Furosemide 20 MG/2 ML VIAL IVP ONE (11:31)
[2019-04-14] MEDS ORDERED: Sennosides 8.6 MG TABLET PO SCH (11:45)
[2019-04-14] MEDS: Miconazole 2% ointment 141 APPL/141 GM TUBE TP SCH ×2 (17:37→23:12)
[2019-04-14] MEDS ORDERED: *HR* Warfarin 10 MG TABLET PO ONE (18:00)
[2019-04-14] MEDS: *HR* LORazepam 0.5 MG TABLET PO PRN (23:12)
[2019-04-14] MEDS: traZODone 50 MG TABLET PO SCH (23:12)
[2019-04-15 05:55] LABS: BUN/Creatinine Ratio 34 (6-26); Blood Urea Nitrogen 31 mg/dL (8-23); Calcium 8.8 mg/dL (8.6-10.3); Carbon Dioxide 29 mEq/L (23-29); Chloride 100 mEq/L (98-107); Glucose 132 mg/dL (70-105); Osmolality,Calculated 298 (280-300); Potassium 3.5 mEq/L (3.5-5.1); Sodium 140 mEq/L (136-145); eGFR For African Americans > 60 (> 60); eGFR For Non-African Americans > 60 (> 60)
[2019-04-15 06:43] LABS: INR 1.7; Prothrombin Time 19.7 Seconds (9.4-12.1)
[2019-04-15] MEDS: Albuterol 2.5 MG/3 ML NEBULIZER IH PRN ×3 (07:53→20:16)
[2019-04-15] MEDS: Budesonide/Formoterol 160/4.5 1 PUFF INH IH SCH ×2 (07:54→20:15)
[2019-04-15] MEDS ORDERED: metOLazone 5 MG TABLET PO ONE (08:30)
[2019-04-15] MEDS: Insulin LISPRO 300 UNITS/3 ML VIAL SQ SCH ×4 (10:21→21:07)
[2019-04-15] MEDS: Aspirin Enteric Coated 81 MG Tablet PO SCH (10:21)
[2019-04-15] MEDS: FLUoxetine 20 MG CAPSULE PO SCH (10:21)
[2019-04-15] MEDS: Gabapentin 300 MG CAPSULE PO SCH ×2 (10:21→21:06)
[2019-04-15] MEDS: Miconazole 2% ointment 141 APPL/141 GM TUBE TP SCH ×2 (10:22→21:06)
[2019-04-15] MEDS: Metoprolol XL (24 HR) Succ 50 MG TAB.ER.24H PO SCH ×2 (12:14→21:06)
[2019-04-15] MEDS: Furosemide 40 MG TABLET PO SCH (12:51)
[2019-04-15] MEDS ORDERED: predniSONE 10 MG TABLET PO SCH (13:15)
[2019-04-15] MEDS: Albumin 25% 12.5gm/50mL 12.5 GM/50 ML IV.SOLN IVPB SCH ×2 (13:24→18:50)
[2019-04-15] MEDS: *HR* Warfarin 7.5 MG TABLET PO SCH (18:18)
[2019-04-15] MEDS: traZODone 50 MG TABLET PO SCH (21:06)
[2019-04-15] MEDS: *HR* OxyCODONE/APAP 10/325 TABLET PO PRN (21:13)
[2019-04-16] MEDS: Furosemide 40 MG TABLET PO SCH ×2 (01:59→13:26)
[2019-04-16] MEDS: Albumin 25% 12.5gm/50mL 12.5 GM/50 ML IV.SOLN IVPB SCH (04:32)
[2019-04-16] MEDS: Insulin LISPRO 300 UNITS/3 ML VIAL SQ SCH ×3 (08:07→17:49)
[2019-04-16] MEDS ORDERED: predniSONE 20 MG TABLET PO SCH (09:00)
[2019-04-16] MEDS ORDERED: predniSONE 10 MG TABLET PO SCH (09:00)
[2019-04-16] MEDS: Aspirin Enteric Coated 81 MG Tablet PO SCH (09:03)
[2019-04-16] MEDS: Miconazole 2% ointment 141 APPL/141 GM TUBE TP SCH (09:03)
[2019-04-16] MEDS: FLUoxetine 20 MG CAPSULE PO SCH (09:04)
[2019-04-16] MEDS: Gabapentin 300 MG CAPSULE PO SCH (09:04)
[2019-04-16] MEDS: Metoprolol XL (24 HR) Succ 50 MG TAB.ER.24H PO SCH (09:04)
[2019-04-16 10:16] LABS: Basophils % 0.5 %; Eosinophils # 0.2 K/mcL (0.0-0.6); Eosinophils % 2.1 %; Hematocrit 38.9 % (37.5-50.1); Hemoglobin 12.1 g/dL (12.9-16.9); Immature Granulocytes % 0.4 % (0-4); Lymphocytes # 2.8 K/mcL (0.6-4.6); Lymphocytes % 33.4 %; Mean Corpuscular HGB Conc 31.1 g/dL (31.6-35.5); Mean Corpuscular Hemoglobin 28.3 pg (28.0-33.3); Mean Corpuscular Volume 90.9 fL (83.0-100.0); Mean Platelet Volume 10.8 fL (9.4-12.4); Monocytes # 1.1 K/mcL (0.0-1.3); Monocytes % 13.1 %; Neutrophils # 4.2 K/mcL (1.6-8.9); Platelet Count 174 K/mcL (140-400); Red Blood Count 4.28 M/mcL (4.19-5.50); Segmented Neutrophils % 50.5 %; White Blood Count 8.4 K/mcL (4.3-11.1)
[2019-04-16 10:19] LABS: INR 1.9; Prothrombin Time 21.3 Seconds (9.4-12.1)
[2019-04-16] MEDS: Budesonide/Formoterol 160/4.5 1 PUFF INH IH SCH ×2 (10:26→20:06)
[2019-04-16] MEDS: Albuterol 2.5 MG/3 ML NEBULIZER IH PRN ×2 (10:28→20:06)
[2019-04-16 10:36] LABS: BUN/Creatinine Ratio 27 (6-26); Blood Urea Nitrogen 25 mg/dL (8-23); Calcium 9.1 mg/dL (8.6-10.3); Carbon Dioxide 30 mEq/L (23-29); Chloride 97 mEq/L (98-107); Glucose 122 mg/dL (70-105); Osmolality,Calculated 292 (280-300); Potassium 3.4 mEq/L (3.5-5.1); Sodium 138 mEq/L (136-145); eGFR For African Americans > 60 (> 60); eGFR For Non-African Americans > 60 (> 60)
[2019-04-16 15:36] VITALS: BP 114/57
[2019-04-16] MEDS: *HR* Warfarin 7.5 MG TABLET PO SCH (17:48)
== END 2019-04-16 20:32 | disposition home health service (06) | DRG 291 ==
LOC: EMEROOARM 12:45 → 3ANU 12:45 → SUATTDRO 17:03 → 3ANU 18:24 → SUATTDRO 04-13 15:28
PROVIDERS: ADMIT Internal Medicine; ATTEND Student in an Organized Health Care Education/Training Program

== ENCOUNTER 2019-04-27 16:30 | Inpatient (IN) ==
[2019-04-27 18:10] LABS: Basophils % 0.2 %; Eosinophils % 0.2 %; Hematocrit 43.2 % (37.5-50.1); Hemoglobin 13.5 g/dL (12.9-16.9); Immature Granulocytes % 1.5 % (0-4); Lymphocytes % 14.9 %; Mean Corpuscular HGB Conc 31.3 g/dL (31.6-35.5); Mean Corpuscular Hemoglobin 28.3 pg (28.0-33.3); Mean Corpuscular Volume 90.6 fL (83.0-100.0); Mean Platelet Volume 10.2 fL (9.4-12.4); Monocytes # 0.7 K/mcL (0.0-1.3); Monocytes % 5.5 %; Neutrophils # 10.2 K/mcL (1.6-8.9); Platelet Count 242 K/mcL (140-400); Red Blood Count 4.77 M/mcL (4.19-5.50); Red Cell Distribution Width 16.9 % (11.5-14.5); Segmented Neutrophils % 77.7 %; White Blood Count 13.1 K/mcL (4.3-11.1)
[2019-04-27 18:25] LABS: INR 2.5; Prothrombin Time 28.7 Seconds (9.4-12.1)
[2019-04-27 18:31] LABS: BUN/Creatinine Ratio 28 (6-26); Blood Urea Nitrogen 29 mg/dL (8-23); Calcium 9.4 mg/dL (8.6-10.3); Carbon Dioxide 28 mEq/L (23-29); Chloride 102 mEq/L (98-107); Glucose 142 mg/dL (70-105); Osmolality,Calculated 294 (280-300); Potassium 4.7 mEq/L (3.5-5.1); Sodium 138 mEq/L (136-145); Troponin I < 0.03 ng/mL (< 0.04); eGFR For African Americans > 60 (> 60); eGFR For Non-African Americans > 60 (> 60)
[2019-04-27] MEDS ORDERED: Furosemide 40 MG/4 ML VIAL IVP STA (19:27)
[2019-04-27] MEDS: Ipratropium/Albuterol Neb 3 ML IH SCH ×3 (19:51→20:04)
[2019-04-27 20:09] LABS: Magnesium 2.1 mg/dL (1.6-2.6)
[2019-04-27] MEDS ORDERED: Atropine Sulfate 1% 40 DROP/2 ML BOTTLE SL PRN (21:38)
[2019-04-27] MEDS ORDERED: Nitroglycerin 0.4 MG TAB.SUBL SL PRN (21:38)
[2019-04-27] MEDS: *HR* OxyCODONE/APAP 10/325 TABLET PO PRN (23:28)
[2019-04-27] MEDS ORDERED: *HR* Warfarin 7.5 MG TABLET PO ONE (23:30)
[2019-04-27] MEDS ORDERED: Ipratropium/Albuterol Neb 3 ML IH PRN (23:31)
[2019-04-27] MEDS ORDERED: Dextrose Gel 15 GM/37.5 ML TUBE PO PRN ×2 (23:33)
[2019-04-27] MEDS ORDERED: *HR* Dextrose 50 % in Water (Syg) 50 ML SYRINGE IVP PRN (23:33)
[2019-04-27] MEDS ORDERED: D5% in Water 1,000 ML IVC PRN (23:33)
[2019-04-28] MEDS: Insulin LISPRO 300 UNITS/3 ML VIAL SQ SCH ×4 (00:03→17:19)
[2019-04-28] MEDS: Insulin DETEMIR 100 UNIT/ML X5UNITS SQ SCH ×2 (00:03→22:08)
[2019-04-28] MEDS: traZODone 50 MG TABLET PO SCH ×2 (00:04→21:06)
[2019-04-28] MEDS: Metoprolol XL (24 HR) Succ 50 MG TAB.ER.24H PO SCH ×3 (00:04→21:05)
[2019-04-28] MEDS: Gabapentin 300 MG CAPSULE PO SCH ×3 (00:04→21:06)
[2019-04-28] MEDS: hydrOXYzine pamoate 25 MG CAPSULE PO PRN ×2 (00:04→21:12)
[2019-04-28] MEDS ORDERED: Ipratropium Neb 0.5 MG NEBULIZER IH PRN (07:41)
[2019-04-28] MEDS ORDERED: Metoprolol XL (24 HR) Succ 50 MG TAB.ER.24H PO SCH (09:00)
[2019-04-28] MEDS: FLUoxetine 20 MG CAPSULE PO SCH (10:00)
[2019-04-28] MEDS: Isosorbide MONOnitrate (24 HR) 30 MG TAB.ER.24H PO SCH (10:00)
[2019-04-28] MEDS: Furosemide 40 MG/4 ML VIAL IVP SCH ×2 (10:00→17:38)
[2019-04-28] MEDS: Aspirin Enteric Coated 81 MG Tablet PO SCH (10:01)
[2019-04-28] MEDS: Levalbuterol Neb 0.63 MG/3 ML IH SCH ×3 (10:51→22:36)
[2019-04-28 11:17] LABS: Basophils % 0.3 %; Eosinophils # 0.1 K/mcL (0.0-0.6); Eosinophils % 0.6 %; Hematocrit 41.9 % (37.5-50.1); Hemoglobin 12.8 g/dL (12.9-16.9); Lymphocytes # 2.9 K/mcL (0.6-4.6); Lymphocytes % 25.3 %; Mean Corpuscular HGB Conc 30.5 g/dL (31.6-35.5); Mean Corpuscular Hemoglobin 28.4 pg (28.0-33.3); Mean Corpuscular Volume 93.1 fL (83.0-100.0); Mean Platelet Volume 10.3 fL (9.4-12.4); Monocytes % 8.5 %; Neutrophils # 7.4 K/mcL (1.6-8.9); Platelet Count 193 K/mcL (140-400); Red Cell Distribution Width 16.7 % (11.5-14.5); Segmented Neutrophils % 64.3 %; White Blood Count 11.4 K/mcL (4.3-11.1)
[2019-04-28 11:18] LABS: INR 2.5; Prothrombin Time 28.2 Seconds (9.4-12.1)
[2019-04-28 11:28] LABS: Alanine Aminotransferase 14 Units/L (7-52); Albumin 3.8 g/dL (3.5-5.7); Albumin/Globulin Ratio 1.5 (1.1-2.2); Alkaline Phosphatase 42 Units/L (34-104); Aspartate Amino Transferase 12 Units/L (13-39); BUN/Creatinine Ratio 28 (6-26); Bilirubin,Total 0.3 mg/dL (0.3-1.0); Blood Urea Nitrogen 26 mg/dL (8-23); Calcium 8.8 mg/dL (8.6-10.3); Carbon Dioxide 25 mEq/L (23-29); Chloride 104 mEq/L (98-107); Globulin 2.5 g/dL (2.4-3.5); Glucose 154 mg/dL (70-105); Osmolality,Calculated 294 (280-300); Potassium 3.8 mEq/L (3.5-5.1); Sodium 138 mEq/L (136-145); Total Protein 6.3 g/dL (6.4-8.9); eGFR For African Americans > 60 (> 60); eGFR For Non-African Americans > 60 (> 60)
[2019-04-28] MEDS: predniSONE 20 MG TABLET PO SCH (17:45)
[2019-04-28] MEDS ORDERED: Chloraseptic Spray 177 ML BOTTLE MM PRN (17:48)
[2019-04-28] MEDS ORDERED: *HR* Warfarin 7.5 MG TABLET PO ONE (18:00)
[2019-04-28] MEDS ORDERED: Warfarin perPT PO PRN (18:00)
[2019-04-28] MEDS: *HR* LORazepam 0.5 MG TABLET PO PRN (22:16)
[2019-04-28] MEDS: *HR* OxyCODONE/APAP 10/325 TABLET PO PRN (22:16)
[2019-04-28] MEDS: Budesonide/Formoterol 160/4.5 1 PUFF INH IH SCH (22:36)
[2019-04-29] MEDS: Levalbuterol Neb 0.63 MG/3 ML IH SCH ×5 (03:31→21:14)
[2019-04-29 07:10] LABS: Basophils % 0.2 %; Eosinophils % 0.1 %; Immature Granulocytes % 0.9 % (0-4); Lymphocytes # 2.1 K/mcL (0.6-4.6); Lymphocytes % 22.6 %; Mean Corpuscular HGB Conc 30.6 g/dL (31.6-35.5); Mean Corpuscular Hemoglobin 28.3 pg (28.0-33.3); Mean Corpuscular Volume 92.5 fL (83.0-100.0); Monocytes # 0.7 K/mcL (0.0-1.3); Monocytes % 7.3 %; Neutrophils # 6.3 K/mcL (1.6-8.9); Platelet Count 160 K/mcL (140-400); Red Blood Count 3.89 M/mcL (4.19-5.50); Red Cell Distribution Width 16.4 % (11.5-14.5); Segmented Neutrophils % 68.9 %; White Blood Count 9.1 K/mcL (4.3-11.1)
[2019-04-29 07:12] LABS: Prothrombin Time 34.1 Seconds (9.4-12.1)
[2019-04-29 07:34] LABS: BUN/Creatinine Ratio 27 (6-26); Blood Urea Nitrogen 26 mg/dL (8-23); Calcium 8.8 mg/dL (8.6-10.3); Carbon Dioxide 31 mEq/L (23-29); Chloride 101 mEq/L (98-107); Glucose 131 mg/dL (70-105); Magnesium 2.1 mg/dL (1.6-2.6); Osmolality,Calculated 295 (280-300); Potassium 4.6 mEq/L (3.5-5.1); Sodium 139 mEq/L (136-145); eGFR For African Americans > 60 (> 60); eGFR For Non-African Americans > 60 (> 60)
[2019-04-29] MEDS: Insulin LISPRO 300 UNITS/3 ML VIAL SQ SCH ×3 (08:33→18:08)
[2019-04-29] MEDS: Furosemide 40 MG/4 ML VIAL IVP SCH ×2 (08:42→18:08)
[2019-04-29] MEDS: Aspirin Enteric Coated 81 MG Tablet PO SCH (08:42)
[2019-04-29] MEDS: FLUoxetine 20 MG CAPSULE PO SCH (08:42)
[2019-04-29] MEDS: predniSONE 20 MG TABLET PO SCH (08:42)
[2019-04-29] MEDS: Gabapentin 300 MG CAPSULE PO SCH ×2 (08:42→21:19)
[2019-04-29] MEDS: Isosorbide MONOnitrate (24 HR) 30 MG TAB.ER.24H PO SCH (08:42)
[2019-04-29] MEDS: Metoprolol XL (24 HR) Succ 50 MG TAB.ER.24H PO SCH ×2 (08:43→21:19)
[2019-04-29] MEDS: Budesonide/Formoterol 160/4.5 1 PUFF INH IH SCH ×3 (10:14→21:14)
[2019-04-29] MEDS: *HR* OxyCODONE/APAP 10/325 TABLET PO PRN (13:10)
[2019-04-29] MEDS: *HR* LORazepam 0.5 MG TABLET PO PRN ×2 (13:10→21:19)
[2019-04-29] MEDS: traZODone 50 MG TABLET PO SCH (21:19)
[2019-04-29] MEDS: hydrOXYzine pamoate 25 MG CAPSULE PO PRN (21:19)
[2019-04-30] MEDS: Levalbuterol Neb 0.63 MG/3 ML IH SCH ×4 (03:57→21:19)
[2019-04-30 04:45] LABS: INR 2.2; Prothrombin Time 25.4 Seconds (9.4-12.1)
[2019-04-30 04:47] LABS: Basophils % 0.1 %; Eosinophils % 0.1 %; Hematocrit 34.7 % (37.5-50.1); Hemoglobin 10.8 g/dL (12.9-16.9); Lymphocytes # 2.3 K/mcL (0.6-4.6); Lymphocytes % 22.6 %; Mean Corpuscular HGB Conc 31.1 g/dL (31.6-35.5); Mean Corpuscular Hemoglobin 28.6 pg (28.0-33.3); Mean Platelet Volume 10.2 fL (9.4-12.4); Monocytes # 0.9 K/mcL (0.0-1.3); Monocytes % 8.8 %; Neutrophils # 6.8 K/mcL (1.6-8.9); Platelet Count 166 K/mcL (140-400); Red Blood Count 3.77 M/mcL (4.19-5.50); Red Cell Distribution Width 16.4 % (11.5-14.5); Segmented Neutrophils % 67.4 %; White Blood Count 10.1 K/mcL (4.3-11.1)
[2019-04-30 04:53] LABS: BUN/Creatinine Ratio 38 (6-26); Blood Urea Nitrogen 35 mg/dL (8-23); Calcium 8.5 mg/dL (8.6-10.3); Carbon Dioxide 30 mEq/L (23-29); Chloride 102 mEq/L (98-107); Glucose 129 mg/dL (70-105); Magnesium 2.1 mg/dL (1.6-2.6); Osmolality,Calculated 294 (280-300); Potassium 3.9 mEq/L (3.5-5.1); Sodium 137 mEq/L (136-145); eGFR For African Americans > 60 (> 60); eGFR For Non-African Americans > 60 (> 60)
[2019-04-30] MEDS: Insulin LISPRO 300 UNITS/3 ML VIAL SQ SCH ×3 (11:26→18:05)
[2019-04-30] MEDS: Furosemide 40 MG/4 ML VIAL IVP SCH ×2 (11:29→18:04)
[2019-04-30] MEDS: metOLazone 5 MG TABLET PO SCH (11:30)
[2019-04-30] MEDS: Metoprolol XL (24 HR) Succ 50 MG TAB.ER.24H PO SCH ×2 (11:30→19:56)
[2019-04-30] MEDS: Isosorbide MONOnitrate (24 HR) 30 MG TAB.ER.24H PO SCH (11:30)
[2019-04-30] MEDS: FLUoxetine 20 MG CAPSULE PO SCH (11:30)
[2019-04-30] MEDS: Gabapentin 300 MG CAPSULE PO SCH ×2 (11:30→19:56)
[2019-04-30] MEDS: predniSONE 20 MG TABLET PO SCH (11:31)
[2019-04-30] MEDS: Aspirin Enteric Coated 81 MG Tablet PO SCH (11:31)
[2019-04-30] MEDS: Budesonide/Formoterol 160/4.5 1 PUFF INH IH SCH ×2 (12:30→21:19)
[2019-04-30] MEDS ORDERED: *HR* Warfarin 7.5 MG TABLET PO ONE (18:00)
[2019-04-30] MEDS: *HR* OxyCODONE/APAP 10/325 TABLET PO PRN (19:57)
[2019-04-30] MEDS: *HR* LORazepam 0.5 MG TABLET PO PRN (19:57)
[2019-04-30] MEDS: hydrOXYzine pamoate 25 MG CAPSULE PO PRN (19:57)
[2019-04-30] MEDS: traZODone 50 MG TABLET PO SCH (19:57)
[2019-05-01] MEDS: *HR* OxyCODONE/APAP 10/325 TABLET PO PRN ×2 (01:18→05:29)
[2019-05-01] MEDS: Levalbuterol Neb 0.63 MG/3 ML IH SCH ×4 (04:39→23:01)
[2019-05-01 05:08] LABS: INR 1.6; Prothrombin Time 17.7 Seconds (9.4-12.1)
[2019-05-01] MEDS: Insulin LISPRO 300 UNITS/3 ML VIAL SQ SCH ×3 (08:14→16:31)
[2019-05-01] MEDS: metOLazone 5 MG TABLET PO SCH (09:21)
[2019-05-01] MEDS: Isosorbide MONOnitrate (24 HR) 30 MG TAB.ER.24H PO SCH (09:21)
[2019-05-01] MEDS: Furosemide 40 MG/4 ML VIAL IVP SCH ×2 (09:21→16:31)
[2019-05-01] MEDS: FLUoxetine 20 MG CAPSULE PO SCH (09:22)
[2019-05-01] MEDS: Aspirin Enteric Coated 81 MG Tablet PO SCH (09:22)
[2019-05-01] MEDS: predniSONE 20 MG TABLET PO SCH (09:22)
[2019-05-01] MEDS: Gabapentin 300 MG CAPSULE PO SCH ×2 (09:22→21:37)
[2019-05-01] MEDS: Metoprolol XL (24 HR) Succ 50 MG TAB.ER.24H PO SCH ×2 (09:23→21:37)
[2019-05-01] MEDS: Budesonide/Formoterol 160/4.5 1 PUFF INH IH SCH ×2 (10:00→23:01)
[2019-05-01] MEDS ORDERED: *HR* Warfarin 7.5 MG TABLET PO ONE (18:00)
[2019-05-01] MEDS: traZODone 50 MG TABLET PO SCH (21:37)
[2019-05-01] MEDS: *HR* LORazepam 0.5 MG TABLET PO PRN (21:37)
[2019-05-02] MEDS: Levalbuterol Neb 0.63 MG/3 ML IH SCH ×2 (03:41→12:02)
[2019-05-02 05:15] LABS: Hematocrit 39.5 % (37.5-50.1); Mean Corpuscular HGB Conc 31.9 g/dL (31.6-35.5); Mean Corpuscular Hemoglobin 28.6 pg (28.0-33.3); Mean Corpuscular Volume 89.8 fL (83.0-100.0); Platelet Count 187 K/mcL (140-400); Red Cell Distribution Width 15.8 % (11.5-14.5); White Blood Count 12.9 K/mcL (4.3-11.1)
[2019-05-02 05:16] LABS: Basophils % 0.2 %; Eosinophils % 0.3 %; Immature Granulocytes % 0.7 % (0-4); Lymphocytes # 3.3 K/mcL (0.6-4.6); Lymphocytes % 25.8 %; Mean Platelet Volume 10.2 fL (9.4-12.4); Monocytes # 1.5 K/mcL (0.0-1.3); Monocytes % 11.7 %; Neutrophils # 7.9 K/mcL (1.6-8.9); Segmented Neutrophils % 61.3 %
[2019-05-02 05:17] LABS: Hemoglobin 12.6 g/dL (12.9-16.9)
[2019-05-02 05:18] LABS: INR 1.5; Prothrombin Time 17.5 Seconds (9.4-12.1)
[2019-05-02 05:33] LABS: BUN/Creatinine Ratio 44 (6-26); Blood Urea Nitrogen 41 mg/dL (8-23); Calcium 9.3 mg/dL (8.6-10.3); Carbon Dioxide 35 mEq/L (23-29); Chloride 96 mEq/L (98-107); Glucose 144 mg/dL (70-105); Osmolality,Calculated 289 (280-300); Potassium 3.1 mEq/L (3.5-5.1); Sodium 133 mEq/L (136-145); eGFR For African Americans > 60 (> 60); eGFR For Non-African Americans > 60 (> 60)
[2019-05-02] MEDS: *HR* OxyCODONE/APAP 10/325 TABLET PO PRN (06:57)
[2019-05-02] MEDS: Insulin LISPRO 300 UNITS/3 ML VIAL SQ SCH ×2 (08:40→12:35)
[2019-05-02] MEDS: Furosemide 40 MG/4 ML VIAL IVP SCH (09:56)
[2019-05-02] MEDS: FLUoxetine 20 MG CAPSULE PO SCH (09:57)
[2019-05-02] MEDS: Aspirin Enteric Coated 81 MG Tablet PO SCH (09:58)
[2019-05-02] MEDS: metOLazone 5 MG TABLET PO SCH (09:58)
[2019-05-02] MEDS: Isosorbide MONOnitrate (24 HR) 30 MG TAB.ER.24H PO SCH (09:58)
[2019-05-02] MEDS: predniSONE 20 MG TABLET PO SCH (09:58)
[2019-05-02] MEDS: Gabapentin 300 MG CAPSULE PO SCH (09:59)
[2019-05-02] MEDS: Potassium Chloride Elixir 20 MEQ/15 ML UDC PO SCH ×2 (10:00→12:36)
[2019-05-02] MEDS: Metoprolol XL (24 HR) Succ 50 MG TAB.ER.24H PO SCH (10:14)
[2019-05-02 11:41] VITALS: BP 125/84
[2019-05-02] MEDS: Budesonide/Formoterol 160/4.5 1 PUFF INH IH SCH (12:02)
== END 2019-05-02 15:48 | disposition home or self-care (01) | DRG 291 ==
LOC: 3ANU 16:30 → EMEROOARM 16:30 → SUATTDRO 20:55 → 3ANU 22:06
PROVIDERS: ADMIT Internal Medicine; ATTEND Internal Medicine

== ENCOUNTER 2019-05-22 16:28 | Inpatient (IN) ==
[2019-05-22] MEDS ORDERED: methylPREDNISolone 125 MG/2 ML VIAL IVP ONE (17:06)
[2019-05-22] MEDS ORDERED: Ipratropium/Albuterol Neb 3 ML IH ONE (17:06)
[2019-05-22 17:17] LABS: Basophils % 0.3 %; Eosinophils # 0.1 K/mcL (0.0-0.6); Eosinophils % 1.1 %; Hematocrit 39.1 % (37.5-50.1); Hemoglobin 12.8 g/dL (12.9-16.9); Immature Granulocytes % 0.6 % (0-4); Lymphocytes # 2.8 K/mcL (0.6-4.6); Lymphocytes % 30.4 %; Mean Corpuscular HGB Conc 32.7 g/dL (31.6-35.5); Mean Corpuscular Hemoglobin 28.4 pg (28.0-33.3); Mean Corpuscular Volume 86.9 fL (83.0-100.0); Monocytes % 11.1 %; Neutrophils # 5.3 K/mcL (1.6-8.9); Platelet Count 208 K/mcL (140-400); Red Cell Distribution Width 16.3 % (11.5-14.5); Segmented Neutrophils % 56.5 %; White Blood Count 9.3 K/mcL (4.3-11.1)
[2019-05-22 17:38] LABS: BUN/Creatinine Ratio 27 (6-26); Blood Urea Nitrogen 35 mg/dL (8-23); Calcium 9.2 mg/dL (8.6-10.3); Carbon Dioxide 38 mEq/L (23-29); Chloride 91 mEq/L (98-107); Glucose 134 mg/dL (70-105); Osmolality,Calculated 300 (280-300); Potassium 3.1 mEq/L (3.5-5.1); Sodium 140 mEq/L (136-145); Troponin I < 0.03 ng/mL (< 0.04); eGFR For African Americans > 60 (> 60); eGFR For Non-African Americans 56 (> 60)
[2019-05-22] MEDS ORDERED: Furosemide 40 MG/4 ML VIAL IVP ONE (17:51)
[2019-05-22 18:28] LABS: Magnesium 1.7 mg/dL (1.6-2.6)
[2019-05-22] MEDS ORDERED: Naloxone 0.4 MG/ML INJ IVP PRN (19:49)
[2019-05-22] MEDS ORDERED: Dextrose Gel 15 GM/37.5 ML TUBE PO PRN ×2 (19:54)
[2019-05-22] MEDS ORDERED: *HR* Dextrose 50 % in Water (Syg) 50 ML SYRINGE IVP PRN (19:54)
[2019-05-22] MEDS ORDERED: D5% in Water 1,000 ML IVC PRN (19:54)
[2019-05-22 20:20] LABS: INR 2.8; Prothrombin Time 31.6 Seconds (9.4-12.1)
[2019-05-22] MEDS ORDERED: Albuterol 2.5 MG/3 ML NEBULIZER IH PRN (20:52)
[2019-05-22] MEDS ORDERED: *HR* Warfarin 3 MG TABLET PO ONE (21:30)
[2019-05-22] MEDS: Insulin LISPRO 300 UNITS/3 ML VIAL SQ SCH (22:29)
[2019-05-22] MEDS: traZODone 50 MG TABLET PO SCH (22:30)
[2019-05-22] MEDS: Metoprolol XL (24 HR) Succ 50 MG TAB.ER.24H PO SCH (22:31)
[2019-05-22] MEDS: Azithromycin 500 MG in 0.9 % Sodium Chloride 250 ML IVPB SCH (22:31)
[2019-05-22] MEDS: Ipratropium/Albuterol Neb 3 ML IH SCH (22:31)
[2019-05-23] MEDS: MethylPREDNISolone 40 MG/ML VIAL IVP SCH ×5 (00:22→22:38)
[2019-05-23] MEDS: Ipratropium/Albuterol Neb 3 ML IH SCH ×4 (04:01→21:42)
[2019-05-23 07:35] LABS: Hematocrit 34.2 % (37.5-50.1); Hemoglobin 11.3 g/dL (12.9-16.9); INR 2.6; Mean Corpuscular Hemoglobin 28.5 pg (28.0-33.3); Mean Corpuscular Volume 86.1 fL (83.0-100.0); Mean Platelet Volume 10.1 fL (9.4-12.4); Platelet Count 168 K/mcL (140-400); Prothrombin Time 29.8 Seconds (9.4-12.1); Red Blood Count 3.97 M/mcL (4.19-5.50); Red Cell Distribution Width 15.7 % (11.5-14.5); White Blood Count 5.8 K/mcL (4.3-11.1)
[2019-05-23 07:49] LABS: BUN/Creatinine Ratio 30 (6-26); Blood Urea Nitrogen 39 mg/dL (8-23); Calcium 8.7 mg/dL (8.6-10.3); Carbon Dioxide 38 mEq/L (23-29); Chloride 92 mEq/L (98-107); Glucose 201 mg/dL (70-105); Osmolality,Calculated 301 (280-300); Potassium 3.4 mEq/L (3.5-5.1); Sodium 138 mEq/L (136-145); eGFR For African Americans > 60 (> 60); eGFR For Non-African Americans 55 (> 60)
[2019-05-23] MEDS: Insulin LISPRO 300 UNITS/3 ML VIAL SQ SCH ×4 (08:42→20:15)
[2019-05-23] MEDS: Aspirin Enteric Coated 81 MG Tablet PO SCH (08:43)
[2019-05-23] MEDS: Metoprolol XL (24 HR) Succ 50 MG TAB.ER.24H PO SCH ×2 (08:44→20:14)
[2019-05-23] MEDS: FLUoxetine 20 MG CAPSULE PO SCH (08:45)
[2019-05-23] MEDS ORDERED: metOLazone 5 MG TABLET PO SCH (09:00)
[2019-05-23] MEDS ORDERED: Furosemide 40 MG/4 ML VIAL IVP SCH (09:00)
[2019-05-23] MEDS: Furosemide 40 MG/4 ML VIAL IVP SCH (17:40)
[2019-05-23] MEDS ORDERED: *HR* Warfarin 3 MG TABLET PO ONE (18:00)
[2019-05-23] MEDS ORDERED: Warfarin perPT PO PRN (18:00)
[2019-05-23] MEDS: traZODone 50 MG TABLET PO SCH (20:14)
[2019-05-23] MEDS: Insulin DETEMIR 100 UNIT/ML X5UNITS SQ SCH (20:15)
[2019-05-23] MEDS: Azithromycin 500 MG in 0.9 % Sodium Chloride 250 ML IVPB SCH (22:38)
[2019-05-23] MEDS: hydrOXYzine pamoate 25 MG CAPSULE PO PRN (23:38)
[2019-05-23] MEDS: *HR* OxyCODONE/APAP 10/325 TABLET PO PRN (23:38)
[2019-05-24 02:09] LABS: Basophils % 0.1 %; Hematocrit 36.3 % (37.5-50.1); Hemoglobin 11.4 g/dL (12.9-16.9); Immature Granulocytes % 0.9 % (0-4); Lymphocytes # 1.6 K/mcL (0.6-4.6); Lymphocytes % 15.2 %; Mean Corpuscular HGB Conc 31.4 g/dL (31.6-35.5); Mean Corpuscular Hemoglobin 28.6 pg (28.0-33.3); Mean Platelet Volume 10.5 fL (9.4-12.4); Monocytes # 0.7 K/mcL (0.0-1.3); Monocytes % 6.9 %; Neutrophils # 8.2 K/mcL (1.6-8.9); Platelet Count 181 K/mcL (140-400); Red Blood Count 3.99 M/mcL (4.19-5.50); Red Cell Distribution Width 15.7 % (11.5-14.5); Segmented Neutrophils % 76.9 %; White Blood Count 10.7 K/mcL (4.3-11.1)
[2019-05-24 02:13] LABS: INR 2.3; Prothrombin Time 26.5 Seconds (9.4-12.1)
[2019-05-24 02:29] LABS: BUN/Creatinine Ratio 37 (6-26); Blood Urea Nitrogen 48 mg/dL (8-23); Calcium 9.1 mg/dL (8.6-10.3); Carbon Dioxide 34 mEq/L (23-29); Chloride 94 mEq/L (98-107); Glucose 204 mg/dL (70-105); Osmolality,Calculated 300 (280-300); Potassium 3.7 mEq/L (3.5-5.1); Sodium 136 mEq/L (136-145); eGFR For African Americans > 60 (> 60); eGFR For Non-African Americans 55 (> 60)
[2019-05-24] MEDS: Ipratropium/Albuterol Neb 3 ML IH SCH ×4 (03:51→22:12)
[2019-05-24] MEDS: hydrOXYzine pamoate 25 MG CAPSULE PO PRN (06:17)
[2019-05-24] MEDS: MethylPREDNISolone 40 MG/ML VIAL IVP SCH ×2 (06:17→18:42)
[2019-05-24] MEDS: *HR* OxyCODONE/APAP 10/325 TABLET PO PRN ×3 (06:17→22:58)
[2019-05-24 08:18] LABS: Estimated Average Glucose 160 mg/dl
[2019-05-24] MEDS: Insulin LISPRO 300 UNITS/3 ML VIAL SQ SCH ×4 (08:22→20:54)
[2019-05-24] MEDS: FLUoxetine 20 MG CAPSULE PO SCH (08:24)
[2019-05-24] MEDS: Azithromycin 250 MG TABLET PO SCH (08:24)
[2019-05-24] MEDS: Metoprolol XL (24 HR) Succ 50 MG TAB.ER.24H PO SCH ×2 (08:24→21:13)
[2019-05-24] MEDS: Aspirin Enteric Coated 81 MG Tablet PO SCH (08:25)
[2019-05-24] MEDS: metOLazone 5 MG TABLET PO SCH (12:50)
[2019-05-24] MEDS: Furosemide 40 MG/4 ML VIAL IVP SCH ×2 (12:50→18:40)
[2019-05-24] MEDS ORDERED: Warfarin perPT PO PRN (18:00)
[2019-05-24] MEDS ORDERED: *HR* Warfarin 7.5 MG TABLET PO ONE (18:00)
[2019-05-24] MEDS: traZODone 50 MG TABLET PO SCH (20:57)
[2019-05-24] MEDS: Insulin DETEMIR 100 UNIT/ML X5UNITS SQ SCH (20:57)
[2019-05-25] MEDS: Ipratropium/Albuterol Neb 3 ML IH SCH ×2 (03:32→10:19)
[2019-05-25] MEDS: MethylPREDNISolone 40 MG/ML VIAL IVP SCH (06:29)
[2019-05-25] MEDS: *HR* OxyCODONE/APAP 10/325 TABLET PO PRN (06:29)
[2019-05-25 06:36] LABS: INR 2.4; Prothrombin Time 27.6 Seconds (9.4-12.1)
[2019-05-25] MEDS: Insulin LISPRO 300 UNITS/3 ML VIAL SQ SCH ×2 (10:55→13:01)
[2019-05-25] MEDS: Azithromycin 250 MG TABLET PO SCH (11:01)
[2019-05-25] MEDS: FLUoxetine 20 MG CAPSULE PO SCH (11:01)
[2019-05-25] MEDS: Furosemide 40 MG/4 ML VIAL IVP SCH (11:01)
[2019-05-25] MEDS: metOLazone 5 MG TABLET PO SCH (11:01)
[2019-05-25] MEDS: Aspirin Enteric Coated 81 MG Tablet PO SCH (11:01)
[2019-05-25] MEDS: Metoprolol XL (24 HR) Succ 50 MG TAB.ER.24H PO SCH (11:02)
[2019-05-25 11:28] VITALS: BP 132/71
[2019-05-25] MEDS ORDERED: *HR* Warfarin 3 MG TABLET PO ONE (18:00)
== END 2019-05-25 15:18 | disposition hospice, home (50) | DRG 291 ==
LOC: 2ANU 16:28 → EMEROOARM 16:28 → SUATTDRO 20:12 → 2ANU 21:17
PROVIDERS: ADMIT Family Medicine; ATTEND Internal Medicine

== ENCOUNTER 2019-07-03 14:00 | Inpatient (IN) ==
[2019-07-03] MEDS ORDERED: methylPREDNISolone 125 MG/2 ML VIAL IVP ONE (14:22)
[2019-07-03] MEDS ORDERED: Ipratropium/Albuterol Neb 3 ML IH ONE (14:22)
[2019-07-03 14:58] LABS: Basophils % 0.3 %; Eosinophils # 0.1 K/mcL (0.0-0.6); Eosinophils % 0.6 %; Hematocrit 41.9 % (37.5-50.1); Hemoglobin 13.1 g/dL (12.9-16.9); Immature Granulocytes % 0.8 % (0-4); Lymphocytes # 2.8 K/mcL (0.6-4.6); Mean Corpuscular HGB Conc 31.3 g/dL (31.6-35.5); Mean Corpuscular Hemoglobin 28.6 pg (28.0-33.3); Mean Corpuscular Volume 91.5 fL (83.0-100.0); Mean Platelet Volume 10.6 fL (9.4-12.4); Monocytes # 1.4 K/mcL (0.0-1.3); Monocytes % 9.7 %; Neutrophils # 9.6 K/mcL (1.6-8.9); Platelet Count 255 K/mcL (140-400); Red Blood Count 4.58 M/mcL (4.19-5.50); Red Cell Distribution Width 16.1 % (11.5-14.5); Segmented Neutrophils % 68.6 %; White Blood Count 13.9 K/mcL (4.3-11.1)
[2019-07-03 15:17] LABS: BUN/Creatinine Ratio 24 (6-26); Blood Urea Nitrogen 30 mg/dL (8-23); Calcium 9.3 mg/dL (8.6-10.3); Carbon Dioxide 31 mEq/L (23-29); Chloride 94 mEq/L (98-107); Glucose 214 mg/dL (70-105); Osmolality,Calculated 295 (280-300); Sodium 136 mEq/L (136-145); eGFR For African Americans > 60 (> 60); eGFR For Non-African Americans 57 (> 60)
[2019-07-03 15:18] LABS: Troponin I < 0.03 ng/mL (< 0.04)
[2019-07-03] MEDS ORDERED: Albuterol 2.5 MG/3 ML NEBULIZER IH ONE (16:33)
[2019-07-03] MEDS ORDERED: Azithromycin 500 MG in 0.9 % Sodium Chloride 250 ML IVPB ONE (16:34)
[2019-07-03] MEDS ORDERED: Acetaminophen 325 MG TABLET PO PRN (16:57)
[2019-07-03] MEDS ORDERED: Naloxone 0.4 MG/ML INJ IVP PRN (16:57)
[2019-07-03] MEDS ORDERED: Ondansetron 4 MG/2 ML VIAL IVP PRN (16:57)
[2019-07-03] MEDS ORDERED: *HR* Dextrose 50 % in Water (Syg) 50 ML SYRINGE IVP PRN (17:00)
[2019-07-03] MEDS ORDERED: Dextrose Gel 15 GM/37.5 ML TUBE PO PRN ×2 (17:00)
[2019-07-03] MEDS ORDERED: D5% in Water 1,000 ML IVC PRN (17:00)
[2019-07-03] MEDS ORDERED: hydrOXYzine pamoate 25 MG CAPSULE PO PRN (17:04)
[2019-07-03] MEDS ORDERED: Atropine Sulfate 1% 40 DROP/2 ML BOTTLE SL PRN (17:04)
[2019-07-03] MEDS ORDERED: Nitroglycerin 0.4 MG TAB.SUBL SL PRN (17:04)
[2019-07-03] MEDS ORDERED: *HR* LORazepam 0.5 MG TABLET PO PRN ×2 (17:04→20:56)
[2019-07-03 17:30] LABS: INR 1.5; Prothrombin Time 17.1 Seconds (9.4-12.1)
[2019-07-03] MEDS ORDERED: MethylPREDNISolone 40 MG/ML VIAL IVP SCH (18:00)
[2019-07-03] MEDS ORDERED: Isovue-370 500 ML BOTTLE IVP ONE (18:37)
[2019-07-03] MEDS ORDERED: *HR* Warfarin 7.5 MG TABLET PO ONE (20:25)
[2019-07-03] MEDS: Ipratropium/Albuterol Neb 3 ML IH SCH ×2 (20:31→23:46)
[2019-07-03] MEDS: Warfarin perPT PO SCH (20:37)
[2019-07-03] MEDS: Insulin LISPRO 300 UNITS/3 ML VIAL SQ SCH (20:39)
[2019-07-03] MEDS: Budesonide/Formoterol 160/4.5 1 PUFF INH IH SCH (20:39)
[2019-07-03] MEDS: Albuterol 2.5 MG/3 ML NEBULIZER AER SCH ×2 (20:42→23:46)
[2019-07-03] MEDS: traZODone 50 MG TABLET PO SCH (20:47)
[2019-07-03] MEDS: Magnesium Oxide 400 MG TABLET PO SCH (20:47)
[2019-07-03] MEDS: Metoprolol XL (24 HR) Succ 50 MG TAB.ER.24H PO SCH (20:47)
[2019-07-03] MEDS: Gabapentin 300 MG CAPSULE PO SCH (20:47)
[2019-07-03] MEDS: Furosemide 40 MG/4 ML VIAL IVP SCH (20:48)
[2019-07-03] MEDS: *HR* OxyCODONE/APAP 10/325 TABLET PO PRN (20:57)
[2019-07-03] MEDS ORDERED: Insulin DETEMIR 100 UNIT/ML X5UNITS SQ SCH (21:00)
[2019-07-03] MEDS: *HR* LORazepam 0.5 MG TABLET PO PRN (21:21)
[2019-07-03] MEDS: MethylPREDNISolone 40 MG/ML VIAL IVP SCH (23:15)
[2019-07-03 23:40] LABS: Adenovirus Not Detected (Not Detect); Coronavirus 229E Not Detected (Not Detect); Coronavirus HKU1 Not Detected (Not Detect); Coronavirus NL63 DETECTED (Not Detect); Coronavirus OC43 Not Detected (Not Detect); Human Metapneumovirus Not Detected (Not Detect); Human Rhinovirus/Enterovirus Not Detected (Not Detect)
[2019-07-03 23:41] LABS: Bordetella Pertussis Not Detected (Not Detect); Chlamydophila pneumoniae Not Detected (Not Detect); Influenza A Subtype 2009 H1 Not Detected (Not Detect); Influenza B Not Detected (Not Detect); Mycoplasma pneumoniae Not Detected (Not Detect); Parainfluenza Virus 1 Not Detected (Not Detect); Parainfluenza Virus 2 Not Detected (Not Detect); Parainfluenza Virus 3 Not Detected (Not Detect); Parainfluenza Virus 4 Not Detected (Not Detect); Respiratory Syncytial Virus Not Detected (Not Detect)
[2019-07-04] MEDS: Albuterol 2.5 MG/3 ML NEBULIZER AER SCH (04:07)
[2019-07-04] MEDS: Ipratropium/Albuterol Neb 3 ML IH SCH ×5 (04:08→19:50)
[2019-07-04 05:32] LABS: Basophils % 0.1 %; Hematocrit 37.7 % (37.5-50.1); Hemoglobin 11.8 g/dL (12.9-16.9); Immature Granulocytes % 1.1 % (0-4); Lymphocytes # 1.4 K/mcL (0.6-4.6); Lymphocytes % 18.4 %; Mean Corpuscular HGB Conc 31.3 g/dL (31.6-35.5); Mean Corpuscular Hemoglobin 28.4 pg (28.0-33.3); Mean Corpuscular Volume 90.8 fL (83.0-100.0); Mean Platelet Volume 10.8 fL (9.4-12.4); Monocytes # 0.3 K/mcL (0.0-1.3); Neutrophils # 5.8 K/mcL (1.6-8.9); Platelet Count 192 K/mcL (140-400); Red Blood Count 4.15 M/mcL (4.19-5.50); Red Cell Distribution Width 15.6 % (11.5-14.5); Segmented Neutrophils % 76.4 %; White Blood Count 7.6 K/mcL (4.3-11.1)
[2019-07-04 05:39] LABS: INR 1.7; Prothrombin Time 19.2 Seconds (9.4-12.1)
[2019-07-04 05:51] LABS: BUN/Creatinine Ratio 25 (6-26); Blood Urea Nitrogen 34 mg/dL (8-23); Calcium 9.1 mg/dL (8.6-10.3); Carbon Dioxide 34 mEq/L (23-29); Chloride 95 mEq/L (98-107); Glucose 212 mg/dL (70-105); Magnesium 1.8 mg/dL (1.6-2.6); Osmolality,Calculated 298 (280-300); Phosphorous 3.2 mg/dL (2.7-4.5); Potassium 3.4 mEq/L (3.5-5.1); Sodium 137 mEq/L (136-145); eGFR For African Americans > 60 (> 60); eGFR For Non-African Americans 53 (> 60)
[2019-07-04] MEDS: Budesonide/Formoterol 160/4.5 1 PUFF INH IH SCH ×2 (07:24→19:50)
[2019-07-04] MEDS: Aspirin Enteric Coated 81 MG Tablet PO SCH (08:50)
[2019-07-04] MEDS: metOLazone 5 MG TABLET PO SCH (08:50)
[2019-07-04] MEDS: Magnesium Oxide 400 MG TABLET PO SCH ×2 (08:50→20:01)
[2019-07-04] MEDS: Gabapentin 300 MG CAPSULE PO SCH ×2 (08:50→20:01)
[2019-07-04] MEDS: Isosorbide MONOnitrate (24 HR) 30 MG TAB.ER.24H PO SCH (08:51)
[2019-07-04] MEDS: FLUoxetine 20 MG CAPSULE PO SCH (08:51)
[2019-07-04] MEDS: Doxycycline 100 MG in 0.9 % Sodium Chloride Mini Bag 100 ML IVPB SCH ×2 (08:51→21:57)
[2019-07-04] MEDS: MethylPREDNISolone 40 MG/ML VIAL IVP SCH ×2 (08:51→17:14)
[2019-07-04] MEDS: Furosemide 40 MG/4 ML VIAL IVP SCH (08:51)
[2019-07-04] MEDS: Metoprolol XL (24 HR) Succ 50 MG TAB.ER.24H PO SCH ×2 (08:51→20:01)
[2019-07-04] MEDS: Insulin LISPRO 300 UNITS/3 ML VIAL SQ SCH ×6 (08:52→17:15)
[2019-07-04] MEDS: Insulin DETEMIR 100 UNIT/ML X5UNITS SQ SCH ×2 (08:52→20:02)
[2019-07-04] MEDS: Furosemide 40 MG TABLET PO SCH (17:14)
[2019-07-04] MEDS: Warfarin perPT PO SCH (17:50)
[2019-07-04] MEDS ORDERED: *HR* Warfarin 7.5 MG TABLET PO ONE (18:00)
[2019-07-04] MEDS: traZODone 50 MG TABLET PO SCH (20:01)
[2019-07-04] MEDS: *HR* LORazepam 0.5 MG TABLET PO PRN (21:56)
[2019-07-04] MEDS ORDERED: Saline Nasal Spray 44 ML BOTTLE NS PRN (23:46)
[2019-07-05] MEDS: MethylPREDNISolone 40 MG/ML VIAL IVP SCH ×3 (00:30→17:41)
[2019-07-05] MEDS: *HR* OxyCODONE/APAP 10/325 TABLET PO PRN ×2 (00:35→17:47)
[2019-07-05 02:54] LABS: Prothrombin Time 22.4 Seconds (9.4-12.1)
[2019-07-05 03:11] LABS: BUN/Creatinine Ratio 35 (6-26); Blood Urea Nitrogen 46 mg/dL (8-23); Calcium 9.2 mg/dL (8.6-10.3); Carbon Dioxide 32 mEq/L (23-29); Chloride 93 mEq/L (98-107); Glucose 174 mg/dL (70-105); Magnesium 1.9 mg/dL (1.6-2.6); Osmolality,Calculated 296 (280-300); Phosphorous 3.3 mg/dL (2.7-4.5); Potassium 3.3 mEq/L (3.5-5.1); Sodium 135 mEq/L (136-145); eGFR For African Americans > 60 (> 60); eGFR For Non-African Americans 55 (> 60)
[2019-07-05] MEDS: Ipratropium/Albuterol Neb 3 ML IH SCH ×7 (03:13→23:56)
[2019-07-05] MEDS: Budesonide/Formoterol 160/4.5 1 PUFF INH IH SCH ×2 (07:43→20:08)
[2019-07-05] MEDS: Metoprolol XL (24 HR) Succ 50 MG TAB.ER.24H PO SCH ×2 (08:14→20:56)
[2019-07-05] MEDS: metOLazone 5 MG TABLET PO SCH (08:14)
[2019-07-05] MEDS: Aspirin Enteric Coated 81 MG Tablet PO SCH (08:14)
[2019-07-05] MEDS: FLUoxetine 20 MG CAPSULE PO SCH (08:14)
[2019-07-05] MEDS: Magnesium Oxide 400 MG TABLET PO SCH ×2 (08:14→20:55)
[2019-07-05] MEDS: Furosemide 40 MG TABLET PO SCH ×2 (08:15→17:40)
[2019-07-05] MEDS: Gabapentin 300 MG CAPSULE PO SCH ×2 (08:15→20:55)
[2019-07-05] MEDS: Isosorbide MONOnitrate (24 HR) 30 MG TAB.ER.24H PO SCH (08:15)
[2019-07-05] MEDS: Insulin LISPRO 300 UNITS/3 ML VIAL SQ SCH ×6 (08:18→17:43)
[2019-07-05] MEDS: Insulin DETEMIR 100 UNIT/ML X5UNITS SQ SCH ×2 (08:32→20:57)
[2019-07-05] MEDS: Doxycycline 100 MG in 0.9 % Sodium Chloride Mini Bag 100 ML IVPB SCH ×2 (08:35→20:56)
[2019-07-05] MEDS ORDERED: *HR* Warfarin 7.5 MG TABLET PO ONE (18:00)
[2019-07-05] MEDS: Warfarin perPT PO SCH (18:21)
[2019-07-05] MEDS: traZODone 50 MG TABLET PO SCH (20:56)
[2019-07-06] MEDS: *HR* OxyCODONE/APAP 10/325 TABLET PO PRN ×3 (00:07→21:10)
[2019-07-06 01:42] LABS: INR 2.1; Prothrombin Time 23.5 Seconds (9.4-12.1)
[2019-07-06 01:59] LABS: BUN/Creatinine Ratio 47 (6-26); Blood Urea Nitrogen 53 mg/dL (8-23); Carbon Dioxide 29 mEq/L (23-29); Chloride 94 mEq/L (98-107); Glucose 181 mg/dL (70-105); Magnesium 1.7 mg/dL (1.6-2.6); Osmolality,Calculated 297 (280-300); Phosphorous 3.9 mg/dL (2.7-4.5); Potassium 3.3 mEq/L (3.5-5.1); Sodium 134 mEq/L (136-145); eGFR For African Americans > 60 (> 60); eGFR For Non-African Americans > 60 (> 60)
[2019-07-06] MEDS: Ipratropium/Albuterol Neb 3 ML IH SCH ×5 (03:30→20:01)
[2019-07-06] MEDS: MethylPREDNISolone 40 MG/ML VIAL IVP SCH ×2 (05:42→17:19)
[2019-07-06] MEDS: Budesonide/Formoterol 160/4.5 1 PUFF INH IH SCH ×2 (07:15→20:01)
[2019-07-06] MEDS: Aspirin Enteric Coated 81 MG Tablet PO SCH (07:55)
[2019-07-06] MEDS: Metoprolol XL (24 HR) Succ 50 MG TAB.ER.24H PO SCH ×2 (07:55→21:10)
[2019-07-06] MEDS: metOLazone 5 MG TABLET PO SCH (07:55)
[2019-07-06] MEDS: Gabapentin 300 MG CAPSULE PO SCH ×2 (07:55→21:10)
[2019-07-06] MEDS: Furosemide 40 MG TABLET PO SCH ×2 (07:55→17:19)
[2019-07-06] MEDS: Isosorbide MONOnitrate (24 HR) 30 MG TAB.ER.24H PO SCH (07:55)
[2019-07-06] MEDS: Magnesium Oxide 400 MG TABLET PO SCH ×2 (07:56→21:11)
[2019-07-06] MEDS: FLUoxetine 20 MG CAPSULE PO SCH (07:56)
[2019-07-06] MEDS: Insulin LISPRO 300 UNITS/3 ML VIAL SQ SCH ×6 (07:59→17:19)
[2019-07-06] MEDS: Insulin DETEMIR 100 UNIT/ML X5UNITS SQ SCH ×2 (08:09→21:09)
[2019-07-06] MEDS: Doxycycline 100 MG in 0.9 % Sodium Chloride Mini Bag 100 ML IVPB SCH ×2 (10:12→21:11)
[2019-07-06] MEDS: Warfarin perPT PO SCH (15:50)
[2019-07-06] MEDS ORDERED: *HR* Warfarin 7.5 MG TABLET PO ONE (18:00)
[2019-07-06] MEDS: traZODone 50 MG TABLET PO SCH (21:10)
[2019-07-07] MEDS: Ipratropium/Albuterol Neb 3 ML IH SCH ×5 (00:04→16:01)
[2019-07-07 05:09] LABS: INR 2.4; Prothrombin Time 27.6 Seconds (9.4-12.1)
[2019-07-07] MEDS: MethylPREDNISolone 40 MG/ML VIAL IVP SCH ×2 (05:42→17:02)
[2019-07-07 05:53] LABS: BUN/Creatinine Ratio 47 (6-26); Blood Urea Nitrogen 52 mg/dL (8-23); Calcium 8.8 mg/dL (8.6-10.3); Carbon Dioxide 26 mEq/L (23-29); Chloride 96 mEq/L (98-107); Glucose 145 mg/dL (70-105); Magnesium 1.9 mg/dL (1.6-2.6); Osmolality,Calculated 299 (280-300); Phosphorous 3.8 mg/dL (2.7-4.5); Potassium 3.5 mEq/L (3.5-5.1); Sodium 136 mEq/L (136-145); eGFR For African Americans > 60 (> 60); eGFR For Non-African Americans > 60 (> 60)
[2019-07-07] MEDS: Doxycycline 100 MG in 0.9 % Sodium Chloride Mini Bag 100 ML IVPB SCH ×2 (09:42→20:53)
[2019-07-07] MEDS: Aspirin Enteric Coated 81 MG Tablet PO SCH (09:44)
[2019-07-07] MEDS: Gabapentin 300 MG CAPSULE PO SCH ×2 (09:44→20:52)
[2019-07-07] MEDS: metOLazone 5 MG TABLET PO SCH (09:44)
[2019-07-07] MEDS: FLUoxetine 20 MG CAPSULE PO SCH (09:45)
[2019-07-07] MEDS: Furosemide 40 MG TABLET PO SCH ×2 (09:45→17:03)
[2019-07-07] MEDS: Magnesium Oxide 400 MG TABLET PO SCH ×2 (09:45→20:52)
[2019-07-07] MEDS: Insulin LISPRO 300 UNITS/3 ML VIAL SQ SCH ×6 (09:45→17:02)
[2019-07-07] MEDS: Metoprolol XL (24 HR) Succ 50 MG TAB.ER.24H PO SCH ×2 (09:45→20:45)
[2019-07-07] MEDS: Insulin DETEMIR 100 UNIT/ML X5UNITS SQ SCH ×2 (09:45→20:52)
[2019-07-07] MEDS: Isosorbide MONOnitrate (24 HR) 30 MG TAB.ER.24H PO SCH (09:45)
[2019-07-07] MEDS: *HR* OxyCODONE/APAP 10/325 TABLET PO PRN ×3 (10:36→21:08)
[2019-07-07] MEDS: Budesonide/Formoterol 160/4.5 1 PUFF INH IH SCH ×2 (11:24→20:11)
[2019-07-07] MEDS: Warfarin perPT PO SCH (17:04)
[2019-07-07] MEDS ORDERED: *HR* Warfarin 7.5 MG TABLET PO ONE (18:00)
[2019-07-07] MEDS ORDERED: Acetylcysteine 10% 2 ML INHSOL IH SCH (18:45)
[2019-07-07] MEDS: Albuterol 2.5 MG/3 ML NEBULIZER IH SCH (20:10)
[2019-07-07] MEDS: traZODone 50 MG TABLET PO SCH (20:52)
[2019-07-07] MEDS: *HR* LORazepam 0.5 MG TABLET PO PRN (21:08)
[2019-07-08] MEDS: Albuterol 2.5 MG/3 ML NEBULIZER IH SCH ×7 (00:03→23:36)
[2019-07-08 05:19] LABS: INR 2.3; Prothrombin Time 26.7 Seconds (9.4-12.1)
[2019-07-08] MEDS: MethylPREDNISolone 40 MG/ML VIAL IVP SCH ×2 (05:52→22:56)
[2019-07-08] MEDS: Budesonide/Formoterol 160/4.5 1 PUFF INH IH SCH ×2 (07:21→20:07)
[2019-07-08] MEDS: Acetylcysteine 10% 2 ML INHSOL IH SCH ×2 (07:25→15:52)
[2019-07-08] MEDS: Magnesium Oxide 400 MG TABLET PO SCH ×2 (08:19→20:01)
[2019-07-08] MEDS: metOLazone 5 MG TABLET PO SCH (08:19)
[2019-07-08] MEDS: Metoprolol XL (24 HR) Succ 50 MG TAB.ER.24H PO SCH ×2 (08:19→20:02)
[2019-07-08] MEDS: Isosorbide MONOnitrate (24 HR) 30 MG TAB.ER.24H PO SCH (08:19)
[2019-07-08] MEDS: Furosemide 40 MG TABLET PO SCH ×2 (08:19→16:33)
[2019-07-08] MEDS: Gabapentin 300 MG CAPSULE PO SCH ×2 (08:19→20:02)
[2019-07-08] MEDS: FLUoxetine 20 MG CAPSULE PO SCH (08:20)
[2019-07-08] MEDS: Aspirin Enteric Coated 81 MG Tablet PO SCH (08:20)
[2019-07-08] MEDS: Doxycycline 100 MG in 0.9 % Sodium Chloride Mini Bag 100 ML IVPB SCH ×2 (08:20→22:57)
[2019-07-08] MEDS: Insulin LISPRO 300 UNITS/3 ML VIAL SQ SCH ×6 (08:25→16:34)
[2019-07-08] MEDS: Insulin DETEMIR 100 UNIT/ML X5UNITS SQ SCH ×2 (08:32→20:25)
[2019-07-08] MEDS: Ipratropium/Albuterol Neb 3 ML IH SCH ×3 (16:19→23:36)
[2019-07-08] MEDS: *HR* OxyCODONE/APAP 10/325 TABLET PO PRN ×2 (16:33→20:26)
[2019-07-08] MEDS ORDERED: *HR* Warfarin 7.5 MG TABLET PO ONE (18:00)
[2019-07-08] MEDS: Warfarin perPT PO SCH (18:05)
[2019-07-08] MEDS: traZODone 50 MG TABLET PO SCH (20:01)
[2019-07-09 01:29] LABS: INR 2.2; Prothrombin Time 25.4 Seconds (9.4-12.1)
[2019-07-09 01:30] LABS: BUN/Creatinine Ratio 47 (6-26); Blood Urea Nitrogen 50 mg/dL (8-23); Calcium 8.7 mg/dL (8.6-10.3); Carbon Dioxide 34 mEq/L (23-29); Chloride 93 mEq/L (98-107); Glucose 159 mg/dL (70-105); Magnesium 1.9 mg/dL (1.6-2.6); Osmolality,Calculated 295 (280-300); Phosphorous 3.2 mg/dL (2.7-4.5); Potassium 2.7 mEq/L (3.5-5.1); Sodium 134 mEq/L (136-145); eGFR For African Americans > 60 (> 60); eGFR For Non-African Americans > 60 (> 60)
[2019-07-09] MEDS: Ipratropium/Albuterol Neb 3 ML IH SCH ×3 (03:51→11:34)
[2019-07-09] MEDS: Albuterol 2.5 MG/3 ML NEBULIZER IH SCH (03:57)
[2019-07-09] MEDS: *HR* OxyCODONE/APAP 10/325 TABLET PO PRN (05:49)
[2019-07-09] MEDS: Budesonide/Formoterol 160/4.5 1 PUFF INH IH SCH (07:39)
[2019-07-09] MEDS: FLUoxetine 20 MG CAPSULE PO SCH (09:37)
[2019-07-09] MEDS: metOLazone 5 MG TABLET PO SCH (09:37)
[2019-07-09] MEDS: Gabapentin 300 MG CAPSULE PO SCH (09:37)
[2019-07-09] MEDS: Furosemide 40 MG TABLET PO SCH (09:37)
[2019-07-09] MEDS: Aspirin Enteric Coated 81 MG Tablet PO SCH (09:37)
[2019-07-09] MEDS: Isosorbide MONOnitrate (24 HR) 30 MG TAB.ER.24H PO SCH (09:37)
[2019-07-09] MEDS: Magnesium Oxide 400 MG TABLET PO SCH (09:37)
[2019-07-09] MEDS: Metoprolol XL (24 HR) Succ 50 MG TAB.ER.24H PO SCH (09:37)
[2019-07-09] MEDS: Insulin DETEMIR 100 UNIT/ML X5UNITS SQ SCH (09:37)
[2019-07-09] MEDS: MethylPREDNISolone 40 MG/ML VIAL IVP SCH (09:38)
[2019-07-09] MEDS: Insulin LISPRO 300 UNITS/3 ML VIAL SQ SCH ×2 (09:38)
[2019-07-09] MEDS: Doxycycline 100 MG in 0.9 % Sodium Chloride Mini Bag 100 ML IVPB SCH (09:38)
[2019-07-09 12:01] VITALS: BP 128/72
[2019-07-09] MEDS ORDERED: *HR* Warfarin 7.5 MG TABLET PO ONE (18:00)
== END 2019-07-09 14:49 | disposition hospice, home (50) | DRG 190 ==
LOC: EMEROOARM 14:00 → 3BNU 14:00 → SUATTDRO 18:52 → 3BNU 19:38
PROVIDERS: ADMIT Internal Medicine; ATTEND Internal Medicine